=== PATIENT | female | born 1940 | race Hispanic/Latino ===

== ENCOUNTER 2019-09-04 14:01 | Emergency (ER) | payer OTHER ==
[2019-09-04] MEDS ORDERED: FENTANYL CITR 100 MCG/2 ML ONE (14:41)
[2019-09-04] MEDS ORDERED: NA CHLORIDE 0.9% 500 ML ONE (14:41)
[2019-09-04 15:13] LABS: Protime INR 1.1
[2019-09-04 15:14] LABS: Absolute Lymphocytes (CBC) 0.8 K/uL (0.7-4.9); Basophils % 1.1 % (0-1.3); Hematocrit 31.9 % (36.0-45.0); Lymphocytes % 13.8 % (15.3-44.8); MPV 8.4 fL (7.6-11.3)
--- NOTE | 2019-09-04 15:33 | RAD REPORT ---
EXAM DESCRIPTION: RAD - Chest Single View - 09/04/2019 3:27 pm CLINICAL HISTORY: COUGH Chest pain. COMPARISON: Chest Pa And Lat (2 Views) dated 12/19/2016; CHEST PA AND LAT 2 VIEW dated 06/28/2013; CHEST SINGLE VIEW dated 12/31/2010; CHEST SINGLE VIEW dated 09/07/2010 FINDINGS: Portable technique limits examination quality. The lungs are grossly clear. The heart is upper limit of normal in size. Right-sided venous catheter has tip in the SVC.No displaced fracture is evident. IMPRESSION: No acute intrathoracic process suspected.
--- NOTE | 2019-09-04 15:34 | RAD REPORT ---
EXAM DESCRIPTION: RAD - Pelvis - 09/04/2019 3:27 pm CLINICAL HISTORY: PAIN COMPARISON: None FINDINGS: AP pelvis, left hip and left femur - multiple projections are submitted Mildly impacted subcapital fracture is present involving the proximal left femur. No dislocation.
--- NOTE | 2019-09-04 15:48 | EDPHYS ---
Physician Documentation [facility] Name: Aury Garcia Age: 79 yrs Sex: Female : 1940 Arrival Date: 09/04/2019 Time: 14:06 Bed 7 Private MD: ED Physician Rahat Alexander HPI: 09/03 15:39 This 79 yrs old Female presents to ER via EMS with complaints of fall after tonie dialysis, left hippain. 15:39 The patient or guardian reports decreased range of motion, pain. that occurred tonie dialysis. The complaints affect the left hip. Onset: The symptoms/episode began/occurred just prior to arrival. Modifying factors: The symptoms are alleviated by nothing, the symptoms are aggravated by nothing. Associated signs and symptoms: Loss of consciousness: the patient experienced no loss of consciousness. Severity of symptoms: At their worst the symptoms were moderate, in the emergency department the symptoms are unchanged. The patient has not experienced similar symptoms in the past. Historical: - Allergies: 14:22 Codeine; jl7 14:22 Tramadol HCl; jl7 - Home Meds: 14:22 aspirin 81 mg Oral TbEC 1 tab once daily [Active]; levothyroxine 50 mcg tab 1 tab once jl7 daily [Active]; atorvastatin 20 mg oral tab 1 tab once daily [Active]; Insulin Glargine Sub-Q [Active]; Lispro [Active]; benzonatate 100 mg oral cap [Active]; carvedilol 12.5 mg oral tab 1 tab every 12 hours [Active]; pantoprazole 40 mg oral TbEC [Active]; hydralazine 25 mg Oral tab [Active]; pentoxifylline 400 mg oral TbER [Active]; - PMHx: 14:22 CVA; Diabetes - IDDM; Hypertension; Hypothyroidism; Hyperlipidemia; TIA; Chronic Kidney jl7 Disease; Dialysis; - PSHx: 14:22 Hysterectomy; jl7 - Immunization history:: Adult Immunizations up to date. - Social history:: Smoking status: Patient denies any tobacco usage or history of. - Family history:: not pertinent. ROS: 15:39 Constitutional: Negative for fever, chills, and weight loss, Eyes: Negative for injury, tonie pain, redness, and discharge, ENT: Negative for injury, pain, and discharge, Neck: Negative for injury, pain, and swelling, Cardiovascular: Negative for chest pain, palpitations, and edema, Respiratory: Negative for shortness of breath, cough, wheezing, and pleuritic chest pain, Abdomen/GI: Negative for abdominal pain, nausea, vomiting, diarrhea, and constipation, Back: Negative for injury and pain, : Negative for injury, bleeding, discharge, and swelling, Skin: Negative for injury, rash, and discoloration, Neuro: Negative for headache, weakness, numbness, tingling, and seizure, Psych: Negative for depression, anxiety, suicide ideation, homicidal ideation, and hallucinations, Allergy/Immunology: Negative for hives, rash, and allergies, Endocrine: Negative for neck swelling, polydipsia, polyuria, polyphagia, and marked weight changes, Hematologic/Lymphatic: Negative for swollen nodes, abnormal bleeding, and unusual bruising. 15:39 MS/extremity: Positive for injury or acute deformity, pain, of the left femoral area and left hip. Exam: 15:39 Constitutional: This is a well developed, well nourished patient who is awake, alert, tonie and in no acute distress. Head/Face: Normocephalic, atraumatic. Eyes: Pupils equal round and reactive to light, extra-ocular motions intact. Lids and lashes normal. Conjunctiva and sclera are non-icteric and not injected. Cornea within normal limits. Periorbital areas with no swelling, redness, or edema. ENT: Nares patent. No nasal discharge, no septal abnormalities noted. Tympanic membranes are normal and external auditory canals are clear. Oropharynx with no redness, swelling, or masses, exudates, or evidence of obstruction, uvula midline. Mucous membranes moist. Neck: Trachea midline, no thyromegaly or masses palpated, and no cervical lymphadenopathy. Supple, full range of motion without nuchal rigidity, or vertebral point tenderness. No Meningismus. Chest/axilla: Normal chest wall appearance and motion. Nontender with no deformity. No lesions are appreciated. Cardiovascular: Regular rate and rhythm with a normal S1 and S2. No gallops, murmurs, or rubs. Normal PMI, no JVD. No pulse deficits. Respiratory: Lungs have equal breath sounds bilaterally, clear to auscultation and percussion. No rales, rhonchi or wheezes noted. No increased work of breathing, no retractions or nasal flaring. Abdomen/GI: Soft, non-tender, with normal bowel sounds. No distension or tympany. No guarding or rebound. No evidence of tenderness throughout. Back: No spinal tenderness. No costovertebral tenderness. Full range of motion. Female : Normal external genitalia. Skin: Warm, dry with normal turgor. Normal color with no rashes, no lesions, and no evidence of cellulitis. Neuro: Awake and alert, GCS 15, oriented to person, place, time, and situation. Cranial nerves II-XII grossly intact. Motor strength 5/5 in all extremities. Sensory grossly intact. Cerebellar exam normal. Normal gait. Psych: Awake, alert, with orientation to person, place and time. Behavior, mood, and affect are within normal limits. 15:39 Musculoskeletal/extremity: Extremities: decreased ROM, pain, ROM: limited active range of motion, limited passive range of motion, limited active range of motion due to pain, limited passive range of motion due to pain, Circulation is intact in all extremities. Sensation intact. Compartment Syndrome exam of affected extremity: is normal. DVT Exam: negative Homans' sign noted on exam, no appreciated bluish discoloration, no erythema, no increased warmth, pain, swelling, tenderness. Vital Signs: 14:07 BP 199 / 69; Pulse 69; Resp 14 S; Pulse Ox 100% on R/A; Pain 0/10; jl7 14:57 BP 215 / 62; Pulse 70; Resp 16 S; Pulse Ox 100% on R/A; jl7 16:15 BP 211 / 72; Pulse 70; Resp 17; Temp 98.2(O); Pulse Ox 100% ; jl7 17:43 BP 208 / 72; Pulse 74; Resp 16; Pulse Ox 98% ; jl7 MDM: 14:12 Patient medically screened. [facility] 15:47 Data reviewed: vital signs, nurses notes, lab test result(s), EKG, radiologic studies, [facility] plain films. 09/03 14:29 Order name: Basic Metabolic Panel; Complete Time: 16:24 [facility] 09/03 14:29 Order name: CBC with Diff; Complete Time: 15:59 [facility] 09/03 14:29 Order name: LFT's; Complete Time: 16:24 [facility] 09/03 14:29 Order name: Magnesium; Complete Time: 16:24 09/03 14:29 Order name: NT PRO-BNP; Complete Time: 16:24 09/03 14:29 Order name: PT-INR; Complete Time: 15:59 [facility] 09/03 14:29 Order name: Troponin (emerg Dept Use Only); Complete Time: 16:24 09/03 14:29 Order name: XRAY Chest (1 view); Complete Time: 15:59 09/03 14:31 Order name: Pelvis XRAY; Complete Time: 15:59 [facility] 09/03 14:35 Order name: Hip Left 2 View XRAY 09/03 14:35 Order name: Femur Left XRAY 09/03 14:29 Order name: EKG; Complete Time: 14:30 [facility] 09/03 14:29 Order name: Cardiac monitoring; Complete Time: 14:33 09/03 14:29 Order name: EKG - Nurse/Tech; Complete Time: 14:59 09/03 14:29 Order name: IV Saline Lock; Complete Time: 14:59 09/03 14:29 Order name: Labs collected and sent; Complete Time: 14:59 [facility] 09/03 14:29 Order name: O2 Per Protocol; Complete Time: 14:33 09/03 14:29 Order name: O2 Sat Monitoring; Complete Time: 14:33 [facility] 09/03 16:30 Order name: Diet Ada 1800 Bijan; Complete Time: 16:31 jl7 Administered Medications: 14:58 Drug: fentaNYL (PF) 25 mcg Route: IVP; Site: right antecubital; jl7 15:15 Follow up: Response: No adverse reaction; Pain is decreased jl7 16:00 Drug: NS 0.9% 1000 ml Route: IV; Rate: 75 ml/hr; Site: right antecubital; jl7 17:59 Follow up: Response: No adverse reaction; IV Status: Infusion continued upon transfer jl7 16:01 Drug: fentaNYL (PF) 25 mcg Route: IVP; Site: right antecubital; jl7 16:20 Follow up: Response: No adverse reaction; Pain is decreased jl7 16:35 Drug: Coreg 12.5 mg Route: PO; jl7 17:46 Follow up: Response: No adverse reaction jl7 16:46 Drug: HydrALAZINE 25 mg Route: PO; jl7 17:46 Follow up: Response: No adverse reaction jl7 17:46 Not Given (Patient Refused): Zofran (Ondansetron) 4 mg IVP once; over 2 minutes jl7 Disposition: 09/04/19 17:11 Transfer ordered to [facility]. Diagnosis are Fall due to bumping against object, End stage renal disease - ON HD, Type 1 diabetes mellitus, Essential (primary) hypertension, Nondisplaced fracture of base of neck of left femur. - Reason for transfer: Higher level of care. - Accepting physician is [facility]. - Condition is Stable. - Problem is new. - Symptoms have improved. Signatures: Dispatcher [employer] EDMS Rahat Alexander MD MD cha Leal, Jahala RN RN jl7 Corrections: (The following items were deleted from the chart) 14:42 14:31 Hip Right 2 View+RAD.RAD.BRZ ordered. EDDC EDMS 14:42 14:31 Femur Right+RAD.RAD.BRZ ordered. EDDC EDMS 17:06 15:47 Hospitalization Ordered by Jose D Clark DO for Inpatient Admission. Preliminary tonie diagnosis is Fall due to bumping against object; Nondisplaced fracture of base of neck of left femur; End stage renal disease - on HD; Type 1 diabetes mellitus; Essential (primary) hypertension. Bed requested for Telemetry/MedSurg (Inpatient). Status is Inpatient Admission. Condition is Fair. Problem is new. Symptoms have improved. tonie 18:59 17:11 09/04/2019 17:11 Transfer ordered to [facility]. Diagnosis is Fall due to jl7 bumping against object; End stage renal disease - ON HD; Type 1 diabetes mellitus; Essential (primary) hypertension; Nondisplaced fracture of base of neck of left femur. Reason for transfer: Higher level of care. Accepting physician is [facility]. Condition is Stable. Problem is new. Symptoms have improved. tonie
--- NOTE | 2019-09-04 15:48 | ER ---
Nurse's Notes [facility] Name: Aury Garcia Age: 79 yrs Sex: Female : 1940 Arrival Date: 09/04/2019 Time: 14:06 Bed 7 Private MD: Diagnosis: Fall due to bumping against object;End stage renal disease-ON HD;Type 1 diabetes mellitus;Essential (primary) hypertension;Nondisplaced fracture of base of neck of left femur Presentation: 09/03 14:07 Chief complaint: EMS states: She completed dialysis, was waiting for transportation and jl7 fell, c/o left hip pain, denies LOC, able to bare weight, pt is baseline mentation, A\T\O 4, ambulates with a walker. Pt reports pain only with palpation, reports normal BP is 200 systolic. Coronavirus screen: The patient has NOT traveled to a country currently being monitored by the [facility] within the last 14 days. Proceed with normal triage procedures. The patient has NOT had contact with any known and/or suspected case of coronavirus. Proceed with normal triage procedures. Ebola Screen: No symptoms or risks identified at this time. Initial Sepsis Screen: Does the patient meet any 2 criteria? No. Patient's initial sepsis screen is negative. Does the patient have a suspected source of infection? No. Patient's initial sepsis screen is negative. Risk Assessment: Do you want to hurt yourself or someone else? Patient reports no desire to harm self or others. Onset of symptoms was September 04, 2019. Care prior to arrival: BGL 92. 14:07 Method Of Arrival: EMS: [facility] jl 14:07 Acuity: JOSE 3 Historical: - Allergies: 14:22 Codeine; jl 14:22 Tramadol HCl; jl - Home Meds: 14:22 aspirin 81 mg Oral TbEC 1 tab once daily [Active]; levothyroxine 50 mcg tab 1 tab once jl7 daily [Active]; atorvastatin 20 mg oral tab 1 tab once daily [Active]; Insulin Glargine Sub-Q [Active]; Lispro [Active]; benzonatate 100 mg oral cap [Active]; carvedilol 12.5 mg oral tab 1 tab every 12 hours [Active]; pantoprazole 40 mg oral TbEC [Active]; hydralazine 25 mg Oral tab [Active]; pentoxifylline 400 mg oral TbER [Active]; - PMHx: 14:22 CVA; Diabetes - IDDM; Hypertension; Hypothyroidism; Hyperlipidemia; TIA; Chronic Kidney jl7 Disease; Dialysis; - PSHx: 14:22 Hysterectomy; jl7 - Immunization history:: Adult Immunizations up to date. - Social history:: Smoking status: Patient denies any tobacco usage or history of. - Family history:: not pertinent. Screenin:15 Abuse screen: Denies threats or abuse. Denies injuries from another. Nutritional jl7 screening: No deficits noted. Tuberculosis screening: No symptoms or risk factors identified. 14:57 Fall Risk IV access (20 points). Total Calvillo Fall Scale indicates No Risk (0-24 pts). jl7 Assessment: 14:15 General: Appears in no apparent distress. uncomfortable, Behavior is calm, cooperative, jl7 appropriate for age. Pain: Complains of pain in left hip Pain does not radiate. Pain currently is 0 out of 10 on a pain scale. at worst was 7 out of 10 on a pain scale. Neuro: Level of Consciousness is awake, alert, obeys commands, Oriented to person, place, time, situation. Cardiovascular: Patient's skin is warm and dry. Respiratory: Airway is patent Respiratory effort is even, unlabored, Respiratory pattern is regular, symmetrical. Derm: Skin is pink, warm \T\ dry. Musculoskeletal: Reports pain in left hip. 16:00 Reassessment: Patient appears in no apparent distress at this time. No changes from jl7 previously documented assessment. Patient and/or family updated on plan of care and expected duration. Pain level reassessed. Patient is alert, oriented x 3, equal unlabored respirations, skin warm/dry/pink. 17:00 Reassessment: Patient appears in no apparent distress at this time. Patient and/or jl7 family updated on plan of care and expected duration. Pain level reassessed. Patient is alert, oriented x 3, equal unlabored respirations, skin warm/dry/pink. 17:58 Reassessment: Patient appears in no apparent distress at this time. Patient and/or jl7 family updated on plan of care and expected duration. Pain level reassessed. Patient is alert, oriented x 3, equal unlabored respirations, skin warm/dry/pink. Vital Signs: 14:07 BP 199 / 69; Pulse 69; Resp 14 S; Pulse Ox 100% on R/A; Pain 0/10; jl7 14:57 BP 215 / 62; Pulse 70; Resp 16 S; Pulse Ox 100% on R/A; jl7 16:15 BP 211 / 72; Pulse 70; Resp 17; Temp 98.2(O); Pulse Ox 100% ; jl7 17:43 BP 208 / 72; Pulse 74; Resp 16; Pulse Ox 98% ; jl7 ED Course: 14:06 Patient arrived in ED. jl7 14:12 Rahat Alexander MD is Attending Physician. tonie 14:14 Triage completed. jl7 14:15 Patient has correct armband on for positive identification. Bed in low position. Call jl7 light in reach. Side rails up X2. ophthalmic technologist on. Pulse ox on. NIBP on. Warm blanket given. 14:22 Arm band placed on right wrist. jl7 14:26 Artur Bryant, CRESCENCIO is Primary Nurse. jl7 14:40 Radiology exam delayed due to IV insertion attempt and/or patient not having ag6 appropriate IV at this time. 14:55 Initial lab(s) drawn, by co, sent to lab. Inserted saline lock: 22 gauge in right 7 antecubital area, using aseptic technique. Blood collected. 15:25 XRAY Chest (1 view) In Process Unspecified. EDMS 15:25 Pelvis XRAY In Process Unspecified. EDMS 15:25 Hip Left 2 View XRAY In Process Unspecified. EDMS 15:25 Femur Left XRAY In Process Unspecified. EDMS 15:44 Jose D Clark DO is Hospitalizing Provider. tonie 17:58 No provider procedures requiring assistance completed. Patient transferred, IV remains jl7 in place. intact, No redness/swelling at site. Administered Medications: 14:58 Drug: fentaNYL (PF) 25 mcg Route: IVP; Site: right antecubital; jl7 15:15 Follow up: Response: No adverse reaction; Pain is decreased jl7 16:00 Drug: NS 0.9% 1000 ml Route: IV; Rate: 75 ml/hr; Site: right antecubital; 7 17:59 Follow up: Response: No adverse reaction; IV Status: Infusion continued upon transfer jl7 16:01 Drug: fentaNYL (PF) 25 mcg Route: IVP; Site: right antecubital; jl7 16:20 Follow up: Response: No adverse reaction; Pain is decreased jl7 16:35 Drug: Coreg 12.5 mg Route: PO; jl7 17:46 Follow up: Response: No adverse reaction jl7 16:46 Drug: HydrALAZINE 25 mg Route: PO; jl7 17:46 Follow up: Response: No adverse reaction jl7 17:46 Not Given (Patient Refused): Zofran (Ondansetron) 4 mg IVP once; over 2 minutes jl7 Outcome: 15:47 Decision to Hospitalize by Provider. tonie 17:11 ER care complete, transfer ordered by . tonie 18:59 Patient left the ED. [facility] Signatures: Dispatcher [employer] EDMS Rahat Alexander MD MD cha Leal, Jahala RN RN jl7 Yazmin Jackson ag6 Corrections: (The following items were deleted from the chart) 14:34 14:07 Chief complaint: EMS states: She completed dialysis, was waiting for [facility] transportation and fell, c/o right hip pain, denies LOC, able to bare weight, pt is baseline mentation, A\T\O 4, ambulates with a walker. Pt reports pain only with palpation, reports normal BP is 200 systolic jl
[2019-09-04 16:01] LABS: Albumin 2.9 g/dL (3.4-5.0); Bilirubin Direct 0.1 mg/dL (0-0.2); Bilirubin Total 0.3 mg/dL (0.2-1.0); Potassium 3.2 mmol/L (3.5-5.1); Protein, Total 7.8 g/dL (6.4-8.2); Troponin (Emerg Dept Use Only) 0.25 ng/mL (0.0-0.045)
[2019-09-04] MEDS ORDERED: carvediloL 6.25 MG TAB ONE (16:37)
[2019-09-04] MEDS ORDERED: HYDRALAZINE HCL 20 MG/ML VIAL ONE (16:37)
[2019-09-04] MEDS ORDERED: HYDRALAZINE HCL 10 MG TABLET ONE (16:42)
--- NOTE | 2019-09-04 18:13 | RAD REPORT ---
EXAM DESCRIPTION: RAD - Hip Left 2 View - 09/04/2019 3:27 pm CLINICAL HISTORY: PAIN COMPARISON: None FINDINGS: AP pelvis, left hip and left femur - multiple projections are submitted Mildly impacted subcapital fracture is present involving the proximal left femur. No dislocation.
--- NOTE | 2019-09-04 18:14 | RAD REPORT ---
EXAM DESCRIPTION: RAD - Femur Left - 09/04/2019 3:26 pm CLINICAL HISTORY: PAIN COMPARISON: None FINDINGS: AP pelvis, left hip and left femur - multiple projections are submitted Mildly impacted subcapital fracture is present involving the proximal left femur. No dislocation.
[2019-09-04 19:10] VITALS: TEMP 98.2
[2019-09-04 19:35] VITALS: BP 208/72; O2SAT 98
--- NOTE | 2019-09-04 22:59 | EKG ---
Test Date: 2019-09-04 Test Time: 14:46:47 Global Supply Chain Director: ARMANDO MEASUREMENT RESULTS: Intervals: Rate: 70 AK: 128 QRSD: 96 QT: 426 QTc: 460 [place]: P: 61 AK: 128 QRS: 22 T: 205 INTERPRETIVE STATEMENTS: Normal sinus rhythm ST & T wave abnormality, consider inferior ischemia ST & T wave abnormality, consider anterolateral ischemia Abnormal ECG Compared to ECG 12/20/2016 06:27:15 Possible ischemia now present Prolonged QT interval no longer present ST (T wave) deviation still present Electronically Signed On 09-04-19 22:59:33 CDT by Vish Mcelroy
== END 2019-09-04 18:59 | disposition short-term general hospital (02) ==
LOC: ER 14:01
DX: S72.002A Fracture of unspecified part of neck of left femur, initial encounter for closed fracture (principal); W19.XXXA Unspecified fall, initial encounter; Y93.89 Activity, other specified; Y92.9 Unspecified place or not applicable; I10 Essential (primary) hypertension; E10.9 Type 1 diabetes mellitus without complications; Z88.6 Allergy status to analgesic agent; E03.9 Hypothyroidism, unspecified; E78.5 Hyperlipidemia, unspecified; N18.9 Chronic kidney disease, unspecified; Z99.2 Dependence on renal dialysis
CPT/HCPCS: 96361; 93005; 85025; 80048; 36415; 83735; 85610; 80076; 84484; 83880; 71045; 72170; 73502; 73552; 96374; 99284; J3010; J7040; J0360

== ENCOUNTER 2019-09-25 12:59 | Emergency (ER) | payer OTHER ==
[2019-09-25 13:45] LABS: Hematocrit 24.5 % (36.0-45.0); RBC Red Blood Cell Count 2.94 M/uL (3.86-4.86)
[2019-09-25 13:46] LABS: Absolute Lymphocytes (CBC) 1.1 K/uL (0.7-4.9); Basophils % 1.1 % (0-1.3); Lymphocytes % 17.6 % (15.3-44.8); MPV 8.1 fL (7.6-11.3)
[2019-09-25 13:52] LABS: Protime INR 0.94
[2019-09-25 14:11] LABS: Albumin 2.3 g/dL (3.4-5.0); Bilirubin Direct 0.2 mg/dL (0-0.2); Bilirubin Total 0.3 mg/dL (0.2-1.0); Potassium 3.2 mmol/L (3.5-5.1); Protein, Total 6.6 g/dL (6.4-8.2)
--- NOTE | 2019-09-25 14:23 | RAD REPORT ---
EXAM DESCRIPTION: CT - Abdomen Pelvis Wo Contrast - 09/25/2019 1:59 pm CLINICAL HISTORY: Abdominal pain hematochezia COMPARISON: 2016 TECHNIQUE: Computed axial tomography of the abdomen and pelvis was obtained. IV and oral contrast we re not requested. All CT scans are performed using dose optimization technique as appropriate and may include automated exposure control or mA/KV adjustment according to patient size. FINDINGS: The evaluation of solid organs, vessels and bowel is limited secondary to the lack of con trast administration. The liver, pancreas, adrenals and kidneys appear grossly normal. Splenic granuloma The appendix is normal. There is no evidence of diverticulitis. The rectum is distended with stool me asuring 5.6 centimeters. A moderate amount of stool is present throughout the colon. The rectal wall is thickened A small umbilical hernia contains fat. A small hiatal hernia is present. IMPRESSION: Thickening of the rectal wall may indicate inflammation.
--- NOTE | 2019-09-25 14:51 | RAD REPORT ---
EXAM DESCRIPTION: Asim Single View09/25/2019 2:40 pm CLINICAL HISTORY: Abdominal pain COMPARISON: August 2019 FINDINGS: The lungs appear clear of acute infiltrate. The heart is normal size. Central venous line remains in place IMPRESSION: No acute abnormalities displayed
--- NOTE | 2019-09-25 15:48 | EDPHYS ---
Physician Documentation [facility] Name: Aury Garcia Age: 79 yrs Sex: Female : 1940 Arrival Date: 09/25/2019 Time: 13:00 Bed 17 Private MD: ED Physician Rahat Alexander HPI: 09/24 13:45 This 79 yrs old Female presents to ER via EMS with complaints of Rectal pm1 Bleeding. 13:45 The patient presents to the emergency department with rectal bleeding, bright red blood pm1 with bowel movement. Onset: The symptoms/episode began/occurred 6 day(s) ago. Abdominal pain: none is appreciated. Associated signs and symptoms: Pertinent positives: generalized weakness, Pertinent negatives: fever, vomiting. Severity of symptoms: in the emergency department the symptoms are worse Hgb 6.0 from labs drawn this AM, Previously 7-8. Patient currently at intermediate for left hip fracture rehabilitation. Hip fracture on 09/04/2019. Lived at home with family prior to hip fracture. Patient with baseline dementia, alert to name only. Hemodialysis patient, T-Th-Sat. Patient missed her dialysis treatment today due to current ER visit. Historical: - Allergies: 18:22 Codeine; ll1 18:22 Tramadol HCl; ll1 - PMHx: 18:22 chronic kidney disease; TIA; Hypertension; Hypothyroidism; Hyperlipidemia; Diabetes - ll1 IDDM; Dialysis; CVA; - PSHx: 18:22 Hysterectomy; ll1 - Immunization history:: Adult Immunizations up to date. - Social history:: Patient/guardian denies using alcohol, street drugs, tobacco products, Smoking status: Patient denies any tobacco usage or history of. ROS: 13:42 Cardiovascular: Negative for chest pain, palpitations, and edema, Respiratory: Negative pm1 for shortness of breath, cough, wheezing, and pleuritic chest pain. 13:42 Back: Negative for injury and pain, MS/Extremity: Negative for injury and deformity, Skin: Negative for injury, rash, and discoloration. 13:42 Constitutional: Positive for generalized weakness, Negative for fever. 13:42 Abdomen/GI: Positive for rectal bleeding, Negative for abdominal pain, nausea and vomiting, black/tarry stool, rectal pain. 13:42 Neuro: Positive for weakness. Exam: 13:26 Head/Face: Normocephalic, atraumatic. Chest/axilla: Normal chest wall appearance and pm1 motion. Nontender with no deformity. No lesions are appreciated. Cardiovascular: Regular rate and rhythm with a normal S1 and S2. No gallops, murmurs, or rubs. No pulse deficits. Respiratory: Lungs have equal breath sounds bilaterally, clear to auscultation and percussion. No rales, rhonchi or wheezes noted. No increased work of breathing, no retractions or nasal flaring. Abdomen/GI: Soft, non-tender, with normal bowel sounds. No distension or tympany. No guarding or rebound. No evidence of tenderness throughout. Back: No spinal tenderness. No costovertebral tenderness. Full range of motion. 13:26 Constitutional: The patient appears awake, non-diaphoretic, non-toxic, well developed, well groomed, frail, Alert to Name Only 13:26 Skin: Appearance: normal except for affected area, ecchymosis, noted on the, left hip, that are mild, and are diffusely located, incisional scar to left hip with 7 joselin intact without any signs of dehiscence, discharge, or redness. Stage 1 pressure sore to coccyx. 13:26 Neuro: Orientation: to person, Mentation: able to follow commands, Motor: moves all fours. 15:30 Abdomen/GI: Rectal exam: rectal tone normal, Stool: guaiac positive, maroon, pm1 tenderness, is not appreciated, Jagruti PRATHER. Vital Signs: 13:02 BP 155 / 50; Pulse 66; Resp 17; Temp 97.9; Pulse Ox 100% on R/A; Pain 0/10; ll1 13:15 BP 158 / 55; Pulse 70; Resp 17; Pulse Ox 100% ; ll1 15:40 BP 178 / 50; Pulse 68; Resp 17; Pulse Ox 100% ; ll1 16:53 BP 117 / 81; Pulse 71; Resp 16; Pulse Ox 100% ; Pain 0/10; ll1 17:28 BP 163 / 56; Pulse 68; Resp 17; Pulse Ox 100% ; ll1 18:26 BP 173 / 58; Pulse 70; Resp 17; Temp 98.0; Pulse Ox 100% ; Pain 0/10; ll1 MDM: 13:09 Patient medically screened. [facility] 15:32 Data reviewed: vital signs. Data interpreted: Pulse oximetry: on room air is 100 %. pm1 Interpretation: normal. Counseling: I had a detailed discussion with the patient and/or guardian regarding: the historical points, exam findings, and any diagnostic results supporting the discharge/admit diagnosis, lab results, radiology results, the need to transfer to another facility, [facility] does not immediately have the required specialist, No GI. 15:55 Physician consultation: Art Berger MD was called at 15:55, regarding consult, pm1 patient's condition, after discussion of the case, a recommendation for transfer due to not available for consultation. 16:49 Physician consultation: MD CASEY Levine was contacted at 16:49, regarding consult, patient's pm1 condition, and will see patient would like admission per Dr. MD Madera. 16:58 Physician consultation: MD Madera regarding regarding transfer, patient's condition, and pm1 will see patient. 09/24 13:19 Order name: Type And Screen; Complete Time: 14:29 pm1 09/24 13:19 Order name: Basic Metabolic Panel; Complete Time: 14:29 pm1 09/24 13:19 Order name: CBC with Diff; Complete Time: 14:29 pm1 09/24 13:19 Order name: LFT's; Complete Time: 14:29 pm1 09/24 13:19 Order name: PT-INR; Complete Time: 14:29 pm1 09/24 15:31 Order name: Occult Blood--Ancillary bd 09/24 13:19 Order name: XRAY Chest (1 view); Complete Time: 14:57 pm1 09/24 13:19 Order name: EKG; Complete Time: 13:20 pm1 09/24 13:19 Order name: Cardiac monitoring; Complete Time: 18:26 pm1 09/24 13:19 Order name: EKG - Nurse/Tech; Complete Time: 18:26 pm1 09/24 13:53 Order name: Abdomen ; Complete Time: 14:29 EDMS 09/24 13:19 Order name: IV Saline Lock; Complete Time: 13:32 pm1 09/24 13:19 Order name: Labs collected and sent; Complete Time: 13:32 pm1 09/24 13:19 Order name: O2 Per Protocol; Complete Time: 13:32 pm1 09/24 13:19 Order name: O2 Sat Monitoring; Complete Time: 13:32 pm1 Administered Medications: 15:53 Drug: Flagyl 500 mg Volume: 100 ml; Route: IVPB; Rate: 200 ml/hr; Infused Over: 30 ll1 mins; Site: left antecubital; 16:52 Follow up: Response: No adverse reaction; RASS: Alert and Calm (0); IV Status: ll1 Completed infusion; IV Intake: 100ml 16:53 Drug: Ciprofloxacin 400 mg Volume: 200 ml; Route: IVPB; Infused Over: 60 mins; Site: ll1 left antecubital; 18:25 Follow up: Response: No adverse reaction; RASS: Alert and Calm (0); IV Status: ll1 Completed infusion; IV Intake: 200ml Disposition: 09/25/19 15:48 Transfer ordered to [facility]. Diagnosis are Gastrointestinal hemorrhage, unspecified, Anemia, unspecified. - Reason for transfer: Higher level of care. - Accepting physician is [facility]. - Condition is Stable. - Problem is new. - Symptoms have improved. Addendum: 09/27/2019 09:56 Co-signature as Attending Physician, Rahat Alexander MD I agree with the assessment and c nguyễn plan of care. Signatures: Dispatcher [employer] EDKS Rahat Alexander MD MD cha Marinas, Patrick, PAPER FEEDER PAPER FEEDER pm1 Benny Langston, RN RN ll1 Corrections: (The following items were deleted from the chart) 09/24 13:53 13:20 Abdomen Pelvis W Con+CT.RAD.BRZ ordered. [facility] 16:24 15:48 09/25/2019 15:48 Transfer ordered to [facility]. pm1 Diagnosis is Gastrointestinal hemorrhage, unspecified. Reason for transfer: Higher level of care. Accepting physician is [facility]. Condition is Stable. Problem is new. Symptoms have improved. pm1 18:23 13:05 Allergies: Codeine; ll1 ll1 18:23 13:05 Allergies: Tramadol HCl; ll1 ll1 18:23 13:05 PMHx: chronic kidney disease; ll1 ll1 18:23 13:05 PMHx: TIA; ll1 ll1 18:23 13:05 PMHx: Hypertension; ll1 ll1 18:23 13:06 PMHx: Hypothyroidism; ll1 ll1 18:23 13:06 PMHx: Hyperlipidemia; ll1 ll1 18:23 13:06 PMHx: Diabetes - IDDM; ll1 ll1 18:23 13:06 PMHx: Dialysis; ll1 ll1 18:23 13:06 PMHx: CVA; ll1 ll1 18:23 13:06 PSHx: Hysterectomy; ll1 ll1 18:24 16:24 09/25/2019 15:48 Transfer ordered to [facility]. ll1 Diagnosis is Gastrointestinal hemorrhage, unspecified; Anemia, unspecified. Reason for transfer: Higher level of care. Accepting physician is [facility]. Condition is Stable. Problem is new. Symptoms have improved. pm1
--- NOTE | 2019-09-25 15:48 | ER ---
Nurse's Notes [facility] Name: Aury Garcia Age: 79 yrs Sex: Female : 1940 Arrival Date: 09/25/2019 Time: 13:00 Bed 17 Private MD: Diagnosis: Gastrointestinal hemorrhage, unspecified;Anemia, unspecified Presentation: 09/24 13:02 Chief complaint: Patient states: Bright red rectal bleeding. HGB has dropped since this ll1 weekend. + weakness. Dialysis T/Th/S. No complaints of pain. No cough, no travel. Coronavirus screen: Proceed with normal triage. Patient denies a cough. Patient denies shortness of breath or difficulty breathing. Patient denies measured and/or subjective temperature greater than 100.4F prior to today's visit. Patient denies travel on a cruise ship or to a country the [facility] currently lists as an affected area. Patient denies contact with known and/or suspected case of COVID-19. Ebola Screen: Patient denies travel to an Ebola-affected area in the 21 days before illness onset. Initial Sepsis Screen: Does the patient meet any 2 criteria? No. Patient's initial sepsis screen is negative. Does the patient have a suspected source of infection? Yes: Other: rectal bleeding. Risk Assessment: Do you want to hurt yourself or someone else? Patient reports no desire to harm self or others. Onset of symptoms was September 19, 2019. 13:02 Method Of Arrival: EMS: [facility] 1 13:02 Acuity: JOSE 2 ll1 Triage Assessment: 13:07 General: Appears in no apparent distress. Behavior is calm, cooperative. Pain: Denies ll1 pain. Neuro: No deficits noted. Cardiovascular: No deficits noted. Respiratory: No deficits noted. GI: Abdomen is flat, Bowel sounds present X 4 quads. Abd is soft and non tender X 4 quads. Patient currently denies abdominal pain, Parent/caregiver reports the patient having bright red blood in stools. Historical: - Allergies: 18:22 Codeine; ll1 18:22 Tramadol HCl; ll1 - PMHx: 18:22 chronic kidney disease; TIA; Hypertension; Hypothyroidism; Hyperlipidemia; Diabetes - ll1 IDDM; Dialysis; CVA; - PSHx: 18:22 Hysterectomy; ll1 - Immunization history:: Adult Immunizations up to date. - Social history:: Patient/guardian denies using alcohol, street drugs, tobacco products, Smoking status: Patient denies any tobacco usage or history of. Screenin:07 Abuse screen: Denies threats or abuse. Nutritional screening: No deficits noted. ll1 Tuberculosis screening: No symptoms or risk factors identified. Fall Risk Secondary diagnosis (15 points) dementia, IV access (20 points). Ambulatory Aid- None/Bed Rest/Nurse Assist (0 pts). Gait- Impaired (20 pts.). Mental Status- Overestimates/Forgets Limitations (15 pts.). Total Calvillo Fall Scale indicates High Risk Score (45 or more points). Fall prevention measures have been instituted. Side Rails Up X 2 1:1 Attendant Assigned Frequent Obs/Assessments Occuring As available patient and family educated on Fall Prevention Program and Strategies. Assessment: 13:09 General: Appears in no apparent distress. Behavior is calm, cooperative, see triage ll1 assessment for further details.. 14:10 Reassessment: No changes from previously documented assessment. Patient and/or family ll1 updated on plan of care and expected duration. Pain level reassessed. Patient is alert, oriented x 3, equal unlabored respirations, skin warm/dry/pink. 15:10 Reassessment: No changes from previously documented assessment. Patient and/or family ll1 updated on plan of care and expected duration. Pain level reassessed. Patient is alert, oriented x 3, equal unlabored respirations, skin warm/dry/pink. 16:10 Reassessment: No changes from previously documented assessment. Patient and/or family ll1 updated on plan of care and expected duration. Pain level reassessed. Patient is alert, oriented x 3, equal unlabored respirations, skin warm/dry/pink. 17:10 Reassessment: No changes from previously documented assessment. Patient and/or family ll1 updated on plan of care and expected duration. Pain level reassessed. Patient is alert, oriented x 3, equal unlabored respirations, skin warm/dry/pink. 18:10 Reassessment: No changes from previously documented assessment. Patient and/or family ll1 updated on plan of care and expected duration. Pain level reassessed. Patient is alert, oriented x 3, equal unlabored respirations, skin warm/dry/pink. Vital Signs: 13:02 BP 155 / 50; Pulse 66; Resp 17; Temp 97.9; Pulse Ox 100% on R/A; Pain 0/10; ll1 13:15 BP 158 / 55; Pulse 70; Resp 17; Pulse Ox 100% ; ll1 15:40 BP 178 / 50; Pulse 68; Resp 17; Pulse Ox 100% ; ll1 16:53 BP 117 / 81; Pulse 71; Resp 16; Pulse Ox 100% ; Pain 0/10; ll1 17:28 BP 163 / 56; Pulse 68; Resp 17; Pulse Ox 100% ; ll1 18:26 BP 173 / 58; Pulse 70; Resp 17; Temp 98.0; Pulse Ox 100% ; Pain 0/10; ll1 ED Course: 13:00 Patient arrived in ED. ll1 13:04 Roman Craig NP is PHCP. pm1 13:04 Rahat Alexander MD is Attending Physician. pm1 13:04 Triage completed. ll1 13:07 Arm band placed on Patient placed in an exam room, on a stretcher. ll1 13:08 Patient has correct armband on for positive identification. Bed in low position. Call ll1 light in reach. Side rails up X2. Pulse ox on. NIBP on. 13:20 Inserted saline lock: 20 gauge in left antecubital area, using aseptic technique. Blood ll1 collected. 13:32 Benny Langston RN is Primary Nurse. ll1 13:59 Abdomen In Process Unspecified. EDMS 14:12 EKG done, by formulation technician. reviewed by Rahat Alexander MD. at1 14:13 Notified Nurse Practitioner and/or Physician Training Designer of a critical lab result(s), CRE ss 5.18. 14:41 XRAY Chest (1 view) In Process Unspecified. EDMS 14:56 Inserted 20 gauge, 10 cm powerglide inserted to L upper arm to aseptic technique. Pt ss tolerated well. Blood return noted. Flushes easily. 18:20 Contacted sister Leny Dupree [phone]. Informed of transfer to [address] 18:24 Patient transferred, IV remains in place. ll1 18:24 No provider procedures requiring assistance completed. ll1 Administered Medications: 15:53 Drug: Flagyl 500 mg Volume: 100 ml; Route: IVPB; Rate: 200 ml/hr; Infused Over: 30 ll1 mins; Site: left antecubital; 16:52 Follow up: Response: No adverse reaction; RASS: Alert and Calm (0); IV Status: ll1 Completed infusion; IV Intake: 100ml 16:53 Drug: Ciprofloxacin 400 mg Volume: 200 ml; Route: IVPB; Infused Over: 60 mins; Site: ll1 left antecubital; 18:25 Follow up: Response: No adverse reaction; RASS: Alert and Calm (0); IV Status: ll1 Completed infusion; IV Intake: 200ml Intake: 16:52 IV: 100ml; Total: 100ml. ll1 18:25 IV: 200ml; Total: 300ml. ll1 Outcome: 15:48 ER care complete, transfer ordered by MD. pm1 18:23 Transferred by ground EMS to [facility], Transfer form completed. ll1 X-rays sent w/ patient. 18:23 Condition: stable 18:23 Instructed on the need for transfer. 18:24 Patient left the ED. ll1 Signatures: Dispatcher [employer] EDSheree Del Rio RN RN ss Birdie Gardner, account services representative EKG Tat1 Roman Craig, [employer]OVEVA JEWEL [employer] FINISH OPENER pm1 Benny Langston RN RN ll1 Corrections: (The following items were deleted from the chart) 18:23 13:05 Allergies: Codeine; ll1 ll1 18:23 13:05 Allergies: Tramadol HCl; ll1 ll1 18:23 13:05 PMHx: chronic kidney disease; ll1 ll1 18:23 13:05 PMHx: TIA; ll1 ll1 18:23 13:05 PMHx: Hypertension; ll1 ll1 18:23 13:06 PMHx: Hypothyroidism; ll1 ll1 18:23 13:06 PMHx: Hyperlipidemia; ll1 ll1 18:23 13:06 PMHx: Diabetes - IDDM; ll1 ll1 18:23 13:06 PMHx: Dialysis; ll1 ll1 18:23 13:06 PMHx: CVA; ll1 ll1 18:23 13:06 PSHx: Hysterectomy; ll1 ll1
[2019-09-25] MEDS ORDERED: CIPROFLOXACIN 400mg IV 400 MG/200 ML BAG IV ONE (15:54)
[2019-09-25] MEDS ORDERED: METRONIDAZOLE 500mg IVPB 500 MG/100 ML BAG IV ONE (15:55)
[2019-09-25 18:30] VITALS: TEMP 97.9; O2SAT 100
[2019-09-25 18:35] VITALS: BP 163/56
--- NOTE | 2019-09-26 15:54 | EKG ---
Test Date: 2019-09-25 Test Time: 14:09:47 Tobacco Sorter: ARMANDO MEASUREMENT RESULTS: Intervals: Rate: 65 UT: 130 QRSD: 104 QT: 424 QTc: 440 [place]: P: 33 UT: 130 QRS: 38 T: 153 INTERPRETIVE STATEMENTS: Sinus rhythm with occasional premature ventricular complexes ST & T wave abnormality, consider inferolateral ischemia Abnormal ECG Compared to ECG 09/04/2019 14:46:47 Ventricular premature complex(es) now present ST (T wave) deviation still present Possible ischemia still present Electronically Signed On 09-26-19 15:50:38 CDT by Derek Spring
== END 2019-09-25 18:24 | disposition short-term general hospital (02) ==
LOC: ER 12:59
DX: E11.22 Type 2 diabetes mellitus with diabetic chronic kidney disease (principal); I12.0 Hypertensive chronic kidney disease with stage 5 chronic kidney disease or end stage renal disease; N18.6 End stage renal disease; D63.1 Anemia in chronic kidney disease; Z99.2 Dependence on renal dialysis; Z88.5 Allergy status to narcotic agent
CPT/HCPCS: 93005; 85025; 80048; 36415; 86900; 86850; 85610; 86901; 80076; 74176; 71045; J0744; 82272; 96365; 96366; 96367; 99285

== ENCOUNTER 2019-10-31 10:20 | Observation (INO) | payer OTHER ==
--- OUTSIDE RECORDS SUMMARY | 2019-10-31 11:20 | XMS REPORT | Clinical Summary ---
:1940 Author Organization [facility] Address [address] [place] [address] Care Team Providers Name Role Phone Srinivasan Forbes MD Primary Care Provider Allergies Active Allergy Reactions Severity Noted Date Comments Codeine 02/25/2017 hallucinations Tramadol 06/24/2016 Other reaction( s): Hallucinations Medications Medication Sig Dispensed Refills Start End Status Date Date miscellaneous medical Use to check 1 each 0 05/31/20 Active supply (BLOOD PRESSURE blood 18 CUFF) miscIndications: pressure Essential hypertension twice daily aspirin (ECOTRIN) 81 MG Take 81 mg by 0 Active enteric coated tablet mouth daily. latanoprost (XALATAN) Administer 1 0 Active 0.005 % ophthalmic drop to both solution eyes nightly. blood-glucose meter Use to check 1 each 0 08/27/19 Active miscIndications: Type 2 blood glucose 20 diabetes mellitus with twice daily hyperglycemia, with long-term current use of insulin ([facility]) blood-glucose meter Use as 1 each 0 08/27/19 Active kitIndications: Type 2 instructed 20 021 diabetes mellitus with hyperglycemia, with long-term current use of insulin ([facility]) lancets Use one 200 each 3 08/29/19 Active miscIndications: Type 2 lancet two 20 diabetes mellitus with times a day hyperglycemia, with for glucose long-term current use of insulin ([facility]) blood sugar diagnostic Use one test 200 strip 3 10/08/19 Active strips (glucose blood) strip two 20 strip test times daily stripsIndications: Type for blood 2 diabetes mellitus sugar with hyperglycemia, with long-term current use of insulin ([facility]) levothyroxine Take 1 tablet 90 tablet 3 10/16/19 Ac tive (SYNTHROID) 50 mcg (50 mcg 20 tabletIndications: total) by Hypothyroidism, mouth daily. unspecified type pentoxifylline TAKE 1 TABLET 180 tablet 3 10/16/19 Active (TRENTal) 400 mg CR BY MOUTH 20 tabletIndications: PAD TWICE A DAY (peripheral artery disease) ([facility]) insulin detemir Inject 25 0 Disc ontinued (LEVEMIR FLEXPEN SUBQ) Units under 020 the skin 2 (two) times a day. metFORMIN (GLUCOPHAGE) TAKE 1 TABLET 180 tablet 0 12/30/19 Discontinued 1,000 mg (1,000 MG 18 020 tabletIndications: TOTAL) BY [facility] us on 09/22/2017 MOUTH 2 (TWO) TIMES A DAY WITH MEALS. empagliflozin Take 1 tablet 30 tablet 2 01/16/20 Di scontinued (JARDIANCE) 25 mg (25 mg total) 18 020 (Stop Taking at tabletIndications: Type by mouth Discharge) 2 diabetes mellitus daily. with hyperglycemia, with long-term current use of insulin ([facility]) sitaGLIPtin (JANUVIA) Take 1 tablet 56 tablet 0 03/01/2002/18 100 MG (100 mg 18 019 tabletIndications: Type total) by 2 diabetes mellitus mouth daily. with hyperglycemia, with long-term current use of insulin ([facility]) pentoxifylline 1 tablet 2x a 180 tablet 3 04/26/20 Discontinued (TRENTal) 400 mg CR day for 90 18 020 tabletIndications: PAD days (peripheral artery disease) ([facility]) blood sugar diagnostic Check blood 200 strip 3 05/31/2012/28 Discontinued strips (ACCU-CHEK glucose twice 18 019 TIFFANIE) strip test daily. stripsIndications: Type 2 diabetes mellitus with hyperglycemia, with long-term current use of insulin ([facility]) LEVEMIR FLEXTOUCH U-100 INJECT SUB 35 15 pen 5 06/14/20 Discontinued INSULN 100 unit/mL (3 UNITS EVERY 18 019 (Reorder) mL) insulin pen 12 HOURS carvedilol (COREG) 6.25 TAKE 1 TABLET 180 tablet 1 09/09/19 1 Discontinued MG tabletIndications: (6.25 MG 019 (Reorder) Essential hypertension TOTAL) BY MOUTH 2 (TWO) TIMES A DAY. lisinopril Take 1 tablet 30 tablet 11 09/14/19 Disco ntinued (PRINIVIL,ZESTRIL) 40 (40 mg total) (Stop Taking at mg tabletIndications: by mouth Discharge) Essential hypertension daily. hydroCHLOROthiazide Take 1 tablet 30 tablet 11 09/14/19 Discontinued (HYDRODIURIL) 12.5 MG (12.5 mg (Stop Taking at tabletIndications: total) by D ischarge) Essential hypertension mouth daily. levothyroxine Take 1 tablet 30 tablet 2 09/15/19 Di scontinued (SYNTHROID, LEVOXYL) 50 (50 mcg 019 (Reorder) mcg tabletIndications: total) by Hypothyroidism, mouth daily. unspecified type glimepiride (AMARYL) 4 TAKE 1 TABLET 90 tablet 0 10/08/1907/22 Discontinued MG tabletIndications: BY MOUTH 019 (Reorder) Type 2 diabetes EVERY DAY mellitus with BEFORE hyperglycemia, with BREAKFAST long-term current use of insulin ([facility]) blood-glucose meter Use as 1 each 0 12/29/19 Discontinued kitIndications: Type 2 instructed (Reorder) diabetes mellitus with hyperglycemia, with long-term current use of insulin ([facility]) blood sugar diagnostic Use one test 200 strip 3 12/29/19/08/19 Discontinued strips (FREESTYLE LITE strip two (Stop Taking at STRIPS) strip test times a day Discharge) stripsIndications: Type for glucose 2 diabetes mellitus with hyperglycemia, with long-term current use of insulin ([facility]) lancets Use one 200 each 3 12/29/19 Discontinu ed miscIndications: Type 2 lancet two (Reorder) diabetes mellitus with times a day hyperglycemia, with for glucose long-term current use of insulin ([facility]) levothyroxine TAKE 1 TABLET 30 tablet 2 01/07/20 Di scontinued (SYNTHROID, LEVOXYL) 50 BY MOUTH 019 (Reorder) mcg tabletIndications: EVERY DAY Hypothyroidism, unspecified type LEVEMIR FLEXTOUCH U-100 INJECT SUB 35 45 pen 1 03/02/20 Discontinued INSULN 100 unit/mL (3 UNITS EVERY 020 (Stop Taking at mL) insulin pen 12 HOURS Disc harge) carvedilol (COREG) 6.25 TAKE 1 TABLET 180 tablet 1 03/23/20 0 Discontinued MG tabletIndications: BY MOUTH 020 (Stop Taking at Essential hypertension TWICE A DAY Discharge) levothyroxine TAKE 1 TABLET 90 tablet 0 04/05/20 Di scontinued (SYNTHROID) 50 mcg BY MOUTH 020 tabletIndications: EVERY DAY Hypothyroidism, unspecified type glimepiride (AMARYL) 4 TAKE 1 TABLET 90 tablet 0 04/22/2008/19 Discontinued MG tabletIndications: BY MOUTH 020 (Stop Taking at Type 2 diabetes EVERY DAY Disc harge) mellitus with BEFORE hyperglycemia, with BREAKFAST long-term current use of insulin ([facility]) levothyroxine TAKE 1 TABLET 90 tablet 1 07/01/19 Di scontinued (SYNTHROID) 50 mcg BY MOUTH 020 ( Reorder) tabletIndications: EVERY DAY Hypothyroidism, unspecified type hydrALAZINE Take 25 mg by 0 Disc ontinued (APRESOLINE) 25 MG mouth 2 (two) 020 (Stop Taking at tablet times a day. Dischar ge) carvediloL (COREG) 12.5 Take 1 tablet 60 tablet 2 08/21/19 MG tablet (12.5 mg 20 020 total) by mouth 2 (two) times a day for 30 days. hydrALAZINE Take 1 tablet 90 tablet 1 08/21/19 Expi red (APRESOLINE) 25 MG (25 mg total) 20 020 tablet by mouth every 8 (eight) hours for 30 days. insulin GLARGINE Inject 5 3 mL 2 08/21/19 Exp ired (LANTUS) 100 unit/mL Units under 20 020 injection (vial) the skin 2 (two) times a day for 30 days. atorvastatin (LIPITOR) Take 1 tablet 30 tablet 2 08/21/1907/22 20 MG tablet (20 mg total) 20 020 by mouth nightly for 30 days. Default OP ins pantoprazole (PROTONIX) Take 1 tablet 30 tablet 3 08/21/19 /07/22 40 MG EC tablet (40 mg total) 20 020 by mouth daily for 30 days. benzonatate (TESSALON Take 1 40 capsule 0 08/27/19 Discontinued PERLES) 100 MG capsule (100 20 020 (S top Taking at capsuleIndications: mg total) by Discharge) Cough mouth 3 (three) times a day as needed for cough for up to 10 days. brompheniramine-pseudoe Take 5 mL by 150 mL 0 08/27/1914/08 Discontinued ph-DM 2-30-10 mg/5 mL mouth 3 020 (Stop Taking at syrupIndications: Cough (three) times Discharge) a day as needed for cough for up to 10 days. levoFLOXacin (LEVAQUIN) Take 2 tab PO 6 tablet 0 08/28/19 Discontinued 250 MG daily for one 20 020 (Stop Taking at tabletIndications: day and then Discharge) Acute cystitis without 1 tab PO hematuria every 48 hours for 10 days total duration blood sugar diagnostic Use one test 200 strip 3 08/29/1908/19 Discontinued strips (glucose blood) strip two (Stop Taking at strip test times daily Dischar ge) stripsIndications: Type for glucose 2 diabetes mellitus with hyperglycemia, with long-term current use of insulin ([facility]) acetaminophen (TYLENOL) Take 2 60 tablet 0 09/12/19 325 MG tablet tablets (650 20 020 mg total) by mouth every 4 (four) hours as needed for mild pain, moderate pain or fever for up to 30 days. amLODIPine (NORVASC) 5 Take 1 tablet 30 tablet 0 09/13/1914/08 mg tablet (5 mg total) 20 020 by mouth daily for 30 days. epoetin misa-epbx Inject 1 mL 12 mL 0 09/14/19 (RETACRIT) 3,000 (3,000 Units 20 020 unit/mL solution total) under injection the skin 3 (three) times a week for 30 days. heparin sodium,porcine Inject 1 mL 60 mL 0 09/12/1910/11 (HEParin, porcine,) (5,000 Units 20 020 5,000 unit/mL injection total) under the skin every 12 (twelve) hours for 30 days. insulin lispro Inject 0-5 10 mL 12 09/12/19 Expi red (HumaLOG) 100 unit/mL Units under 20 020 injection the skin 3 (three) times a day with meals for 30 days. pentoxifylline TAKE 1 TABLET 180 tablet 3 10/08/19 Discontinued (TRENTal) 400 mg CR BY MOUTH 20 020 (Reorder) tabletIndications: PAD TWICE A DAY (peripheral artery disease) ([facility]) Active Problems Problem Noted Date Closed left hip fracture 09/04/2019 Closed fracture of left hip 09/04/2019 Overview: Added automatically from request for augustus carrol [id number] Gastrointestinal bleed 08/12/2019 Acute pulmonary edema 08/07/2019 Hematoma of groin 03/07/2018 PAD (peripheral artery disease) 02/08/2018 Overview: Added automatically from request for surgery [id number] Last Assessment & Plan: Doing well after tibial angioplasty with control of claudication symptoms. She complains of leg swelling for which I recommend light compression stockings. To follow-up in 6 months with noninvasive testing. PVD (peripheral vascular disease) 09/19/2017 Type 2 diabetes mellitus with hyperglycemia, with long -term current use of 03/10/2017 insulin Essential hypertension 03/10/2017 Mixed hyperlipidemia 03/10/2017 Encounters Date Type Specialty Care Team Description 10/24/2019 Telemedicine Internal Medicine Srinivasan Forbes PVD (skip Blum MD vascular diseas e) ([facility]) (Primary Dx) 10/24/2019 Travel 10/16/2019 Orders Only Internal Medicine Srinivasan Forbes Hypothy roidism, unspecified type; MD Viktoria PAD (peripheral artery disease) ([facility]) 10/08/2019 Orders Only Internal Medicine Petty De Oliveira, Type 2 diabetes MA mellitus with hyperglycemia, with long-term curre nt use of insulin ([facility]) (Primary Dx) 10/08/2019 Refill Cardiovascular ForbesSrinivasan ayala PAD (robyn Blum MD artery disease) ([facility]) 10/02/2019 Hospital Encounter Radiology Nino Panda Arrive d MD 10/02/2019 Abstract Orthopedic Surgery Audelia Archer MA 09/27/2019 Telephone Cardiovascular Suzanna Bella RN 09/21/2019 Travel 09/20/2019 Travel 09/07/2019 Anesthesia Event Orthopedic Surgery Jm Magana MD Koshy, Nikhil 09/07/2019 Surgery Orthopedic Surgery Amarilys NinoBLUE Arreola MD ARTHROPLASTY, L EFT HIP 09/04/2019 Hospital Encounter Orthopedic Surgery Dorota Murillo Closed fracture of left hip, initial encounter ([facility]) (Primary Dx); - Rashaun Zimmer MD Type 2 diabetes mellitus with hyperglycemia, with long-term current use of insulin ([facility]); 09/12/2019 Mixed hyperlipi demia; PVD (peripheral vascular disease) ([facility]); PAD (peripheral artery disease) ([facility]); Essential hyper tension 09/04/2019 Travel 09/04/2019 Intake Access 08/30/2019 Telephone Internal Medicine Petty De Oliveira MA 08/29/2019 Orders Only Internal Medicine Petty De Oliveira Type 2 diabetes MA mellitus with hyperglycemia, with long-term curre nt use of insulin ([facility]) 08/28/2019 Telephone Internal Medicine Petty De Oliveira MA 08/28/2019 Orders Only Internal Medicine Srinivasan Forbes ESRD (e nd stage MD Viktoria renal disease) ([facility]) (Primary Dx) 08/28/2019 Orders Only Internal Medicine Srinivasan Forbes Acute c ystitis MD Viktoria without hematur ia (Primary Dx) 08/27/2019 Hospital Encounter Radiology Srinivasan Forbes MD 08/27/2019 Office Visit Internal Medicine Srinivasna Forbes Type 2 diabetes mellitus with hyperglycemia, with long-term current use of insulin ([facility]) (Primary Dx); MD Viktoria Essential hyper tension; Cough; Acute cystitis without hematuria; Debility 08/27/2019 Travel 08/21/2019 Telephone Internal Medicine Petty De Oliveira MA 08/07/2019 Hospital Encounter Cardiology Gabino Feliz Acute re nal failure on dialysis ([facility]) (Primary Dx); Cristina Powell MD Acute pulmonary edema ([facility]); 08/21/2019 Dorota Murillo Acute blood loss anemia; O. MD Mesha Type 2 diabetes mellitus with hyperglycemia, with long-term current use of insulin ([facility]); Essential hyper tension; Mixed hyperlipi demia; PAD (peripheral artery disease) ([facility]); PVD (peripheral vascular disease) ([facility]) 07/01/2019 Refill Internal Medicine Srinivasan Forbes J., MD unspecified typ e 04/21/2019 Refill Internal Medicine Srinivasan Forbes 2 rocío Blum MD mellitus with hyperglycemia, with long-term curre nt use of insulin ([facility]) 04/11/2019 Office Visit Cardiovascular [place], PAD (peripher al [place] artery disease) MD Maicol ([facility]) (Primary Dx) 04/05/2019 Refill Internal Medicine Srinivasan Forbes J., MD unspecified typ e 03/23/2019 Refill Internal Medicine Srinivasan Forbes MD hypertension 03/02/2019 Refill Internal Medicine Srinivasan Forbes MD 02/09/2019 Telephone Internal Medicine Petty De Oliveira, MA 01/06/2019 Refill Internal Medicine Srinivasan Forbes J., MD unspecified typ e 12/28/2018 Orders Only Internal Medicine Petty De Oliveira, Type 2 diabetes MA mellitus with hyperglycemia, with long-term curre nt use of insulin ([facility]) (Primary Dx) after 10/30/2018 Immunizations Name Administration Dates Next Due FLUZONE HIGH-DOSE PF 03/01/2018, 03/10/2017 Pneumococcal Conjugate 13-Valent 05/31/2018 Family History Medical History Relation Name Comments Heart disease Father Stroke Mother Relation Name Status Comments Father Mother Social History Tobacco Use Types Packs/Day Years Used Date Former Smoker Quit: 1999 Smokeless Tobacco: Never Used Comments: socially Alcohol Use Drinks/Week oz/Week Comments No Sex Assigned at Date Recorded Not on file Job Start Date Occupation Industry Not on file Not on file Not on file Travel History Travel Start Travel End No recent travel history available. COVID-19 Exposure Response Date Recorded In the last month, have you been in contact Unable to assess 10/24/2019 12:59 PM CDT with someone who was confirmed or suspected to have Coronavirus / COVID-19? Last Filed Vital Signs Vital Sign Reading Time Taken Comments Blood Pressure 171/72 09/12/2019 11:44 AM CDT Pulse 76 09/12/2019 11:44 AM CDT Temperature 36.4 C (97.6 F) 09/12/2019 11:44 AM CDT Respiratory Rate 14 09/12/2019 11:44 AM CDT Oxygen Saturation 98% 09/12/2019 11:44 AM CDT Inhaled Oxygen Concentration - - Weight 46.7 kg (103 lb) 08/27/2019 2:44 PM CDT Height 147.3 cm (4' 10") 08/27/2019 2:44 PM CDT Body Mass Index 21.53 08/27/2019 2:44 PM CDT Plan of Treatment Health Maintenance Due Date Last Done Comments SHINGLES VACCINES (#1) 01/12/1992 65+ PNEUMOCOCCAL VACCINE (2 of 2 - 05/31/2019 05/31/2018 PPSV23) DIABETIC FOOT EXAM 09/14/2019 09/13/2018, 09/13/2018, 08/29/2017 URINE MICROALBUMIN 09/14/2019 09/13/2018, 09/02/2017, 03/01/2017 DIABETIC RETINAL EYE EXAM 01/19/2020 01/18/2018 INFLUENZA VACCINE 01/19/2020 03/01/2018, 03/01/2018, 03/10/2017 Implants Implanted Type Area Crna Device Shelf Model / Identifier Expiration Serial / Date Lot Device Vasclr Clsr Baln Cath 10ml Lkng Syr 5fr [place] nxgrip - [id number] Cardiovascular N/A: N/A ACCESS CLOSURE 11/18/2019 [id number] / Implanted: 12/27/2017 at [facility] (Quantity not on file) [employer] / [id number] Device Vasclr Clsr Baln Cath 10ml Lkng Syr 5fr [place] nxgrip - [id number] Cardiovascular N/A: N/A ACCESS CLOSURE 12/18/2019 [id number] / Implanted: 03/07/2018 at [facility] (Quantity not on file) [employer] / [id number] Device Vasclr Clsr Baln Cath 10ml Lkng Syr 5fr [place] nxgrip - [id number] Cardiovascular N/A: N/A ACCESS CLOSURE 02/18/2020 [id number] / Implanted: Qty: 1 on 03/21/2018 by Nemesio Mistry MD at [facility] [employer] / [id number] Screw Bone Canltd Thred Lg Hxgnl Socket Ss [id number] - [id number] Orthopedic Trauma Left: SYNTHES TRAUMA 208 [id number] / Implanted: 09/07/2019 at [facility] (Quantity not on file) Imp lants Hip AND RECON / Screw Bone Canltd Thred Lg Hxgnl Socket Ss [id number] - [id number] Orthopedic Trauma Left: SYNTHES TRAUMA 208 875 / Implanted: 09/07/2019 at [facility] (Quantity not on file) Imp lants Hip AND RECON / Screw Bone Canltd Thred Lg Hxgnl Socket Ss [id number] - [id number] Orthopedic Trauma Left: SYNTHES TRAUMA 209 870 / Implanted: 09/07/2019 at [facility] (Quantity not on file) Imp lants Hip AND RECON / Screw Bone Canltd Thred Lg Hxgnl Socket Ss [id number] - [id number] Orthopedic Trauma Left: SYNTHES TRAUMA 209 875 / Implanted: 09/07/2019 at [facility] (Quantity not on file) Imp lants Hip AND RECON / Washer For Lg Scr 13mm - [id number] Orthopedic Trauma Left: SYNTHE S TRAUMA 219 99 / Implanted: 09/07/2019 at [facility] (Quantity not on file) Imp lants Hip AND RECON / Catheter Angio Roller Helper Ii 5fr 65cm Selc Braidd Torque [place] - [id number] Surgical N/A: N/A [facility] PERIPHERAL [id number] / Implanted: 12/27/2017 at [facility] (Quantity not on file) Imp lants; INTERVENTION / Expanders; VASCULAR AUGUSTUS Extenders; Surgical Wires Catheter Angio Roller Helper Ii 5fr 0.038in 65cm Hf Contra-L - [id number] Surgical N/A: N/A [facility] [id number] / Implanted: 12/27/2017 at [facility] (Quantity not on file) Imp lants; INTERVENTION / Expanders; VASCULAR AUGUSTUS Extenders; Surgical Wires Catheter Card [place] 14 4fr 150cm Guid Supp - [id number] Surgic al N/A: N/A [facility] [id number] / Implanted: 12/27/2017 at [facility] (Quantity not on file) Imp lants; INTERVENTION / Expanders; VASCULAR AUGUSTUS Extenders; Surgical Wires Catheter Furnace Liner Otw 4fr 150cm 3x80mm Lpr Rodney Sl Right: TASHA [id number] / Implanted: Qty: 1 on 12/27/2017 by Nemesio Mistry MD at [facility] SCIENTIFIC/GODWIN / PHERAL VASCULAR (MEDI-TECH) Catheter Furnace Liner Otw 3.8fr 135cm 80x5mm Rodney Right: KATIA N [id number] / Implanted: Qty: 1 on 12/27/2017 by Nemesio Mistry MD at [facility] SCIENTIFIC/GODWIN / PHERAL VASCULAR ([facility]) Catheter Furnace Liner Rodney Otw 135cm 4x60mm [place] [id number] / Implanted: Qty: 1 on 03/07/2018 by Nemesio Mistry MD at [facility] SCIENTIFIC/GODWIN / PHERAL VASCULAR ([facility]) Catheter Furnace Liner Otw 4fr 150cm 3x80mm Lpr Rodney Sl [place] [id number] / Implanted: Qty: 1 on 03/07/2018 by Nemesio Mistry MD at [facility] SCIENTIFIC/GODWIN / PHERAL VASCULAR ([facility]) Catheter Furnace Liner Otw 4fr 150cm 3x80mm Lpr Rodney Sl [place] [id number] / Implanted: Qty: 1 on 03/21/2018 by Nemesio Mistry MD at [facility] SCIENTIFIC/GODWIN / PHERAL VASCULAR ([facility]) Catheter Furnace Liner Rodney Otw 3.8fr 135cm 80x4mm [place] N [id number] / Implanted: Qty: 1 on 03/21/2018 by Nemesio Mistry MD at [facility] SCIENTIFIC/GODWIN / PHERAL VASCULAR [facility] Explanted Type Area Crna Device Shelf Model / Identifier Expiration Serial / Date Lot Screw Bone Canltd Thred Lg Hxgnl Socket Ss [id number] - Log [id number] Orthopedic Left: SYNTHES TRAUMA [id number] 870 / Implanted: 09/07/2019 (Quantity not on file) Trauma Hip AND R ECON / Explanted: 09/07/2019 at [facility] (Quantity not on file) Implants Screw Bone Canltd Thred Lg Hxgnl Socket Ss [id number] - Log [id number] Orthopedic Left: SYNTHES TRAUMA 209 870 / Implanted: 09/07/2019 (Quantity not on file) Trauma Hip AND R ECON / Explanted: 09/07/2019 at [facility] (Quantity not on file) Implants Washer For Lg Scr 13mm - [id number] Orthopedic Left: SYNTHES TRAUM A 219 99 / Implanted: 09/07/2019 (Quantity not on file) Trauma Hip AND R ECON / Explanted: 09/07/2019 at [facility] (Quantity not on file) Implants Procedures Procedure Name Priority Date/Time Associated Comments Diagnosis XR LOWER EXTREMITY Routine 09/21/2019 2:37 Resul ts for this EXTERNAL STUDY PM CDT procedure are in the results section. POC GLUCOSE Routine 09/12/2019 12:02 Results for this PM CDT procedure are i n the results section. POC GLUCOSE Routine 09/12/2019 8:20 Results for this AM CDT procedure are i n the results section. POC GLUCOSE Routine 09/11/2019 9:36 Results for this PM CDT procedure are i n the results section. POC GLUCOSE Routine 09/11/2019 12:38 Results for this PM CDT procedure are i n the results section. HEPATITIS B SURFACE Routine 09/11/2019 10:57 Resu lts for this ANTIGEN AM CDT procedure are i n the results section. POC GLUCOSE Routine 09/11/2019 8:36 Results for this AM CDT procedure are i n the results section. HC COMPLETE BLD COUNT Routine 09/11/2019 8:15 Re sults for this W/AUTO DIFF AM CDT procedure are i n the results section. ESTIMATED GFR Routine 09/11/2019 12:00 Results fo r this AM CDT procedure are i n the results section. BASIC METABOLIC PANEL Routine 09/11/2019 12:00 Re sults for this AM CDT procedure are i n the results section. POC GLUCOSE Routine 09/10/2019 10:15 Results for this PM CDT procedure are i n the results section. HEMODIALYSIS Routine 09/10/2019 6:29 PM CDT POC GLUCOSE Routine 09/10/2019 5:25 Results for this PM CDT procedure are i n the results section. POC GLUCOSE Routine 09/10/2019 1:03 Results for this PM CDT procedure are i n the results section. POC GLUCOSE Routine 09/09/2019 9:28 Results for this PM CDT procedure are i n the results section. POC GLUCOSE Routine 09/09/2019 6:33 Results for this PM CDT procedure are i n the results section. POC GLUCOSE Routine 09/09/2019 12:16 Results for this PM CDT procedure are i n the results section. POC GLUCOSE Routine 09/09/2019 7:00 Results for this AM CDT procedure are i n the results section. POC GLUCOSE Routine 09/08/2019 9:18 Results for this PM CDT procedure are i n the results section. POC GLUCOSE Routine 09/08/2019 5:54 Results for this PM CDT procedure are i n the results section. POC GLUCOSE Routine 09/08/2019 12:30 Results for this PM CDT procedure are i n the results section. POC GLUCOSE Routine 09/08/2019 9:06 Results for this AM CDT procedure are i n the results section. CBC HEMOGRAM Routine 09/08/2019 7:30 Results for this AM CDT procedure are i n the results section. ESTIMATED GFR Routine 09/08/2019 4:00 Results fo r this AM CDT procedure are i n the results section. MAGNESIUM LEVEL Routine 09/08/2019 4:00 Results for this AM CDT procedure are i n the results section. PHOSPHORUS LEVEL Routine 09/08/2019 4:00 Results for this AM CDT procedure are i n the results section. BASIC METABOLIC PANEL Routine 09/08/2019 4:00 Re sults for this AM CDT procedure are i n the results section. POC GLUCOSE Routine 09/07/2019 10:15 Results for this PM CDT procedure are i n the results section. POC GLUCOSE Routine 09/07/2019 4:59 Results for this PM CDT procedure are i n the results section. HEMODIALYSIS Routine 09/07/2019 4:20 PM CDT POC GLUCOSE Routine 09/07/2019 9:36 Results for this AM CDT procedure are i n the results section. OR FL > 1 HOUR Routine 09/07/2019 9:16 Results f or this AM CDT procedure are i n the results section. CT AN ELECTIVE Routine 09/07/2019 8:41 Results f or this ENDOTRACHEAL AIRWAY AM CDT procedur e are in the results section. PINNING, HIP, 09/07/2019 7:57 Closed fracture of PERCUTANEOUS AM CDT left hip, initial encounter (HCC) Special Needs C-ARM POC PANEL 4 Routine 09/07/2019 6:48 AM Results for this CDT procedure are i n the results section. POC GLUCOSE Routine 09/07/2019 5:21 AM Results for this CDT procedure are i n the results section. ESTIMATED GFR Routine 09/07/2019 4:30 AM Results for this CDT procedure are i n the results section. PROTHROMBIN TIME WITH Routine 09/07/2019 4:30 AM Results for this INR CDT procedure are i n the results section. PARTIAL THROMBOPLASTIN Routine 09/07/2019 4:30 AM Results for this TIME (PTT) CDT procedure are i n the results section. TOTAL IRON BINDING Routine 09/07/2019 4:30 AM Re sults for this CAPACITY CDT procedure are i n the results section. FERRITIN LEVEL Routine 09/07/2019 4:30 AM Result s for this CDT procedure are i n the results section. BASIC METABOLIC PANEL Routine 09/07/2019 4:30 AM Results for this CDT procedure are i n the results section. HC COMPLETE BLD COUNT Routine 09/07/2019 4:30 AM Results for this W/AUTO DIFF CDT procedure are i n the results section. POC GLUCOSE Routine 09/06/2019 9:48 PM Results for this CDT procedure are i n the results section. POC GLUCOSE Routine 09/06/2019 5:11 PM Results for this CDT procedure are i n the results section. POC GLUCOSE Routine 09/06/2019 12:32 PM Results for this CDT procedure are i n the results section. POC GLUCOSE Routine 09/06/2019 10:46 AM Results for this CDT procedure are i n the results section. HEMODIALYSIS Routine 09/06/2019 6:22 AM CDT PROTHROMBIN TIME WITH Routine 09/06/2019 6:00 AM Results for this INR CDT procedure are i n the results section. PARTIAL THROMBOPLASTIN Routine 09/06/2019 6:00 AM Results for this TIME (PTT) CDT procedure are i n the results section. HC COMPLETE BLD COUNT Routine 09/06/2019 6:00 AM Results for this W/AUTO DIFF CDT procedure are i n the results section. ESTIMATED GFR Routine 09/06/2019 4:00 AM Results for this CDT procedure are i n the results section. ALBUMIN LEVEL Routine 09/06/2019 4:00 AM Results for this CDT procedure are i n the results section. PHOSPHORUS LEVEL Routine 09/06/2019 4:00 AM Resu lts for this CDT procedure are i n the results section. MAGNESIUM LEVEL Routine 09/06/2019 4:00 AM Resul ts for this CDT procedure are i n the results section. BASIC METABOLIC PANEL Routine 09/06/2019 4:00 AM Results for this CDT procedure are i n the results section. POC GLUCOSE Routine 09/05/2019 11:55 PM Results for this CDT procedure are i n the results section. ECG 12-LEAD Routine 09/05/2019 6:15 PM Results for this CDT procedure are i n the results section. POC GLUCOSE Routine 09/05/2019 5:20 PM Results for this CDT procedure are i n the results section. XR HIP 2-3 VIEWS LEFT Routine 09/05/2019 2:13 PM Results for this CDT procedure are i n the results section. XR FEMUR 2 VW LEFT STAT 09/05/2019 2:13 PM Re sults for this CDT procedure are i n the results section. XR PELVIS 1 OR 2 VW STAT 09/05/2019 2:12 PM R esults for this CDT procedure are i n the results section. POC GLUCOSE Routine 09/05/2019 12:30 PM Results for this CDT procedure are i n the results section. POC GLUCOSE Routine 09/05/2019 7:23 AM Results for this CDT procedure are i n the results section. TYPE AND SCREEN Routine 09/05/2019 6:10 AM Resul ts for this CDT procedure are i n the results section. PARTIAL THROMBOPLASTIN Routine 09/05/2019 6:10 AM Results for this TIME (PTT) CDT procedure are i n the results section. PROTHROMBIN TIME WITH Routine 09/05/2019 6:10 AM Results for this INR CDT procedure are i n the results section. HC COMPLETE BLD COUNT Routine 09/05/2019 6:10 AM Results for this W/AUTO DIFF CDT procedure are i n the results section. ESTIMATED GFR Routine 09/05/2019 4:00 AM Results for this CDT procedure are i n the results section. BASIC METABOLIC PANEL Routine 09/05/2019 4:00 AM Results for this CDT procedure are i n the results section. POC GLUCOSE Routine 09/04/2019 9:57 PM Results for this CDT procedure are i n the results section. XR CHEST 2 VW Routine 08/27/2019 4:54 PM Cough Results for this CDT procedure are i n the results section. URINALYSIS, COMPLETE, Routine 08/27/2019 4:10 PM Acute cystit is Results for this WITH REFLEX TO CULTURE CDT without hematuria procedure are in the results section. URINE CULTURE Routine 08/27/2019 4:10 PM Results for this CDT procedure are i n the results section. POC GLUCOSE Routine 08/21/2019 12:25 PM Results for this [facility] procedure are i n the results section. POC GLUCOSE Routine 08/21/2019 8:21 AM Results for this [facility] procedure are i n the results section. MANUAL DIFFERENTIAL Routine 08/21/2019 2:00 AM R esults for this [facility] procedure are i n the results section. PHOSPHORUS LEVEL Routine 08/21/2019 2:00 AM Resu lts for this [facility] procedure are i n the results section. ESTIMATED GFR Routine 08/21/2019 2:00 AM Results for this [facility] procedure are i n the results section. MAGNESIUM LEVEL Routine 08/21/2019 2:00 AM Resul ts for this [facility] procedure are i n the results section. CBC WITH PLATELET AND Routine 08/21/2019 2:00 AM Results for this DIFFERENTIAL [facility] procedure are i n the results section. BASIC METABOLIC PANEL Routine 08/21/2019 2:00 AM Results for this [facility] procedure are i n the results section. HEMODIALYSIS Routine 08/20/2019 10:22 PM [facility] POC GLUCOSE Routine 08/20/2019 9:18 PM Results for this [facility] procedure are i n the results section. POC GLUCOSE Routine 08/20/2019 6:23 PM Results for this [facility] procedure are i n the results section. POC GLUCOSE Routine 08/20/2019 5:13 PM Results for this [facility] procedure are i n the results section. POC GLUCOSE Routine 08/20/2019 11:08 AM Results for this [facility] procedure are i n the results section. POC GLUCOSE Routine 08/20/2019 7:58 AM Results for this [facility] procedure are i n the results section. MANUAL DIFFERENTIAL Routine 08/20/2019 5:05 AM R esults for this [facility] procedure are i n the results section. ESTIMATED GFR Routine 08/20/2019 5:05 AM Results for this [facility] procedure are i n the results section. MAGNESIUM LEVEL Routine 08/20/2019 5:05 AM Resul ts for this [facility] procedure are i n the results section. CBC WITH PLATELET AND Routine 08/20/2019 5:05 AM Results for this DIFFERENTIAL [facility] procedure are i n the results section. BASIC METABOLIC PANEL Routine 08/20/2019 5:05 AM Results for this [facility] procedure are i n the results section. POC GLUCOSE Routine 08/19/2019 9:15 PM Results for this [facility] procedure are i n the results section. POC GLUCOSE Routine 08/19/2019 5:14 PM Results for this [facility] procedure are i n the results section. POC GLUCOSE Routine 08/19/2019 11:55 AM Results for this [facility] procedure are i n the results section. ECG 12-LEAD Routine 08/19/2019 9:26 AM Results for this [facility] procedure are i n the results section. POC GLUCOSE Routine 08/19/2019 8:53 AM Results for this [facility] procedure are i n the results section. BASIC METABOLIC PANEL Routine 08/19/2019 4:00 AM Results for this [facility] procedure are i n the results section. ESTIMATED GFR Routine 08/19/2019 4:00 AM Results for this [facility] procedure are i n the results section. POC GLUCOSE Routine 08/18/2019 5:56 PM Results for this [facility] procedure are i n the results section. POC GLUCOSE Routine 08/18/2019 1:01 PM Results for this [facility] procedure are i n the results section. HEMODIALYSIS Routine 08/18/2019 8:45 AM [facility] POC GLUCOSE Routine 08/18/2019 7:36 AM Results for this [facility] procedure are i n the results section. POC GLUCOSE Routine 08/17/2019 9:00 PM Results for this [facility] procedure are i n the results section. POC GLUCOSE Routine 08/17/2019 6:13 PM Results for this [facility] procedure are i n the results section. POC GLUCOSE Routine 08/17/2019 12:44 PM Results for this [facility] procedure are i n the results section. NM MYOCARDIAL PERFUSION Routine 08/17/2019 8:37 AM Results for this STRESS REST 1 DAY [facility] procedure are in the results section. CV STRESS TEST NUCLEAR Routine 08/17/2019 8:37 AM Results for this CARDIO [facility] procedure are i n the results section. POC GLUCOSE Routine 08/17/2019 7:53 AM Results for this [facility] procedure are i n the results section. ESTIMATED GFR Routine 08/17/2019 3:40 AM Results for this [facility] procedure are i n the results section. PHOSPHORUS LEVEL Routine 08/17/2019 3:40 AM Resu lts for this [facility] procedure are i n the results section. BASIC METABOLIC PANEL Routine 08/17/2019 3:40 AM Results for this [facility] procedure are i n the results section. POC GLUCOSE Routine 08/16/2019 9:56 PM Results for this [facility] procedure are i n the results section. POC GLUCOSE Routine 08/16/2019 4:07 PM Results for this [facility] procedure are i n the results section. POC GLUCOSE Routine 08/16/2019 11:38 AM Results for this [facility] procedure are i n the results section. CT HEAD WO CONTRAST Routine 08/16/2019 11:21 AM R esults for this [facility] procedure are i n the results section. ESTIMATED GFR Routine 08/16/2019 10:29 AM Results for this [facility] procedure are i n the results section. BASIC METABOLIC PANEL Routine 08/16/2019 10:29 AM Results for this [facility] procedure are i n the results section. POC GLUCOSE Routine 08/16/2019 7:41 AM Results for this [facility] procedure are i n the results section. POC GLUCOSE Routine 08/15/2019 6:03 PM Results for this [facility] procedure are i n the results section. POC GLUCOSE Routine 08/15/2019 12:07 PM Results for this [facility] procedure are i n the results section. HEMODIALYSIS Routine 08/15/2019 12:04 PM [facility] POC GLUCOSE Routine 08/15/2019 8:29 AM Results for this [facility] procedure are i n the results section. ESTIMATED GFR Routine 08/15/2019 8:15 AM Results for this [facility] procedure are i n the results section. PHOSPHORUS LEVEL Routine 08/15/2019 8:15 AM Resu lts for this [facility] procedure are i n the results section. MAGNESIUM LEVEL Routine 08/15/2019 8:15 AM Resul ts for this [facility] procedure are i n the results section. BASIC METABOLIC PANEL Routine 08/15/2019 8:15 AM Results for this [facility] procedure are i n the results section. HC COMPLETE BLD COUNT Routine 08/15/2019 8:15 AM Results for this W/AUTO DIFF [facility] procedure are i n the results section. POC GLUCOSE Routine 08/14/2019 9:45 PM Results for this [facility] procedure are i n the results section. POC GLUCOSE Routine 08/14/2019 4:20 PM Results for this [facility] procedure are i n the results section. POC GLUCOSE Routine 08/14/2019 11:11 AM Results for this [facility] procedure are i n the results section. HEPATITIS B CORE Routine 08/14/2019 10:05 AM Resu lts for this ANTIBODY TOTAL [facility] procedure are in the results section. HEPATITIS B SURFACE Routine 08/14/2019 10:05 AM R esults for this ANTIBODY [facility] procedure are i n the results section. HEPATITIS B SURFACE Routine 08/14/2019 10:05 AM R esults for this ANTIGEN [facility] procedure are i n the results section. HEPATITIS C ANTIBODY Routine 08/14/2019 10:05 AM Results for this [facility] procedure are i n the results section. HEMODIALYSIS Routine 08/14/2019 9:00 AM [facility] POC GLUCOSE Routine 08/14/2019 7:36 AM Results for this [facility] procedure are i n the results section. HC COMPLETE BLD COUNT Routine 08/14/2019 5:30 AM Results for this W/AUTO DIFF [facility] procedure are i n the results section. ESTIMATED GFR Routine 08/14/2019 4:00 AM Results for this [facility] procedure are i n the results section. BASIC METABOLIC PANEL Routine 08/14/2019 4:00 AM Results for this [facility] procedure are i n the results section. POC GLUCOSE Routine 08/13/2019 8:06 PM Results for this [facility] procedure are i n the results section. IR TUNNELED DIALYSIS Routine 08/13/2019 6:37 PM Results for this CATHETER PLACEMENT [facility] procedure are in the results section. HEPATITIS B SURFACE STAT 08/13/2019 5:28 PM R esults for this ANTIGEN [facility] procedure are i n the results section. POC GLUCOSE Routine 08/13/2019 5:15 PM Results for this [facility] procedure are i n the results section. POC GLUCOSE Routine 08/13/2019 11:54 AM Results for this [facility] procedure are i n the results section. HEMODIALYSIS Routine 08/13/2019 11:03 AM [facility] POC GLUCOSE Routine 08/13/2019 7:28 AM Results for this [facility] procedure are i n the results section. HC COMPLETE BLD COUNT Routine 08/13/2019 4:50 AM Results for this W/AUTO DIFF [facility] procedure are i n the results section. ESTIMATED GFR Routine 08/13/2019 4:00 AM Results for this [facility] procedure are i n the results section. BASIC METABOLIC PANEL Routine 08/13/2019 4:00 AM Results for this [facility] procedure are i n the results section. IONIZED CALCIUM Routine 08/13/2019 4:00 AM Resul ts for this [facility] procedure are i n the results section. POC GLUCOSE Routine 08/12/2019 8:33 PM Results for this [facility] procedure are i n the results section. POTASSIUM LEVEL Routine 08/12/2019 7:00 PM Resul ts for this [facility] procedure are i n the results section. POC GLUCOSE Routine 08/12/2019 6:25 PM Results for this [facility] procedure are i n the results section. POC GLUCOSE Routine 08/12/2019 4:18 PM Results for this [facility] procedure are i n the results section. POC GLUCOSE Routine 08/12/2019 11:43 AM Results for this [facility] procedure are i n the results section. XR CHEST 1 VW PORTABLE Routine 08/12/2019 9:16 AM Results for this [facility] procedure are i n the results section. POC GLUCOSE Routine 08/12/2019 6:59 AM Results for this [facility] procedure are i n the results section. MANUAL DIFFERENTIAL Routine 08/12/2019 5:00 AM R esults for this [facility] procedure are i n the results section. ESTIMATED GFR Routine 08/12/2019 5:00 AM Results for this [facility] procedure are i n the results section. B NATRIURETIC PEPTIDE Routine 08/12/2019 5:00 AM Results for this [facility] procedure are i n the results section. IONIZED CALCIUM Routine 08/12/2019 5:00 AM Resul ts for this [facility] procedure are i n the results section. PHOSPHORUS LEVEL Routine 08/12/2019 5:00 AM Resu lts for this [facility] procedure are i n the results section. MAGNESIUM LEVEL Routine 08/12/2019 5:00 AM Resul ts for this [facility] procedure are i n the results section. BASIC METABOLIC PANEL Routine 08/12/2019 5:00 AM Results for this [facility] procedure are i n the results section. CBC WITH PLATELET AND Routine 08/12/2019 5:00 AM Results for this DIFFERENTIAL [facility] procedure are i n the results section. POC GLUCOSE Routine 08/11/2019 8:34 PM Results for this [facility] procedure are i n the results section. POC GLUCOSE Routine 08/11/2019 6:06 PM Results for this [facility] procedure are i n the results section. HEMOGLOBIN & HEMATOCRIT Timed 08/11/2019 4:55 PM Results for this [facility] procedure are i n the results section. TRANSFUSE RED BLOOD STAT 08/11/2019 1:35 PM CELLS [facility] POC GLUCOSE Routine 08/11/2019 12:24 PM Results for this [facility] procedure are i n the results section. TRANSFUSE RED BLOOD STAT 08/11/2019 11:13 AM CELLS [facility] OCCULT BLOOD, STOOL Routine 08/11/2019 8:17 AM R esults for this [facility] procedure are i n the results section. POC GLUCOSE Routine 08/11/2019 8:02 AM Results for this [facility] procedure are i n the results section. HEMOGLOBIN & HEMATOCRIT STAT 08/11/2019 7:28 AM Results for this [facility] procedure are i n the results section. PREPARE RBC STAT 08/11/2019 6:24 AM Results for this [facility] procedure are i n the results section. TYPE AND SCREEN STAT 08/11/2019 6:24 AM Resul ts for this [facility] procedure are i n the results section. POC GLUCOSE Routine 08/11/2019 6:04 AM Results for this [facility] procedure are i n the results section. POC GLUCOSE Routine 08/11/2019 4:57 AM Results for this [facility] procedure are i n the results section. SMEAR REVIEW Routine 08/11/2019 4:35 AM Results for this [facility] procedure are i n the results section. HC COMPLETE BLD COUNT Routine 08/11/2019 4:35 AM Results for this W/AUTO DIFF [facility] procedure are i n the results section. ESTIMATED GFR Routine 08/11/2019 4:11 AM Results for this [facility] procedure are i n the results section. BASIC METABOLIC PANEL Routine 08/11/2019 4:11 AM Results for this [facility] procedure are i n the results section. POC GLUCOSE Routine 08/11/2019 12:25 AM Results for this [facility] procedure are i n the results section. POC GLUCOSE Routine 08/10/2019 8:52 PM Results for this [facility] procedure are i n the results section. POC GLUCOSE Routine 08/10/2019 4:59 PM Results for this [facility] procedure are i n the results section. POC GLUCOSE Routine 08/10/2019 12:19 PM Results for this [facility] procedure are i n the results section. POC GLUCOSE Routine 08/10/2019 11:00 AM Results for this [facility] procedure are i n the results section. POC GLUCOSE Routine 08/10/2019 8:31 AM Results for this [facility] procedure are i n the results section. POC GLUCOSE Routine 08/10/2019 7:21 AM Results for this [facility] procedure are i n the results section. ESTIMATED GFR Routine 08/10/2019 5:23 AM Results for this [facility] procedure are i n the results section. BASIC METABOLIC PANEL Routine 08/10/2019 5:23 AM Results for this [facility] procedure are i n the results section. HC COMPLETE BLD COUNT Routine 08/10/2019 5:23 AM Results for this W/AUTO DIFF [facility] procedure are i n the results section. POC GLUCOSE Routine 08/10/2019 4:01 AM Results for this [facility] procedure are i n the results section. POC GLUCOSE Routine 08/10/2019 12:27 AM Results for this [facility] procedure are i n the results section. POC GLUCOSE Routine 08/09/2019 9:24 PM Results for this [facility] procedure are i n the results section. US RENAL DOPPLER Routine 08/09/2019 9:00 PM Resu lts for this [facility] procedure are i n the results section. POC GLUCOSE Routine 08/09/2019 4:35 PM Results for this [facility] procedure are i n the results section. POC GLUCOSE Routine 08/09/2019 12:39 PM Results for this [facility] procedure are i n the results section. BODY FLUID CONSULT Routine 08/09/2019 11:49 AM Re sults for this [facility] procedure are i n the results section. URINALYSIS, AUTOMATED Routine 08/09/2019 11:49 AM Results for this WITH MICROSCOPY [facility] procedure ar e in the results section. TORITO TITER Routine 08/09/2019 11:45 AM Results for this [facility] procedure are i n the results section. GLOMERULAR BASEMENT Routine 08/09/2019 11:45 AM R esults for this MEMBRANE AB IGG (IFA) [facility] proced ure are in the results section. ANTI-NEUTROPHILIC Routine 08/09/2019 11:45 AM Res ults for this CYTOPLASMIC ABS PANEL [facility] proced ure are in the results section. TORITO Routine 08/09/2019 11:45 AM Results for this [facility] procedure are i n the results section. BARNETT ANTIBODY Routine 08/09/2019 11:45 AM Result s for this [facility] procedure are i n the results section. DNA AB SCREEN Routine 08/09/2019 11:45 AM Results for this [facility] procedure are i n the results section. C4 COMPLEMENT COMPONENT Routine 08/09/2019 11:45 AM Results for this [facility] procedure are i n the results section. C3 COMPLEMENT COMPONENT Routine 08/09/2019 11:45 AM Results for this [facility] procedure are i n the results section. XR CHEST 1 VW PORTABLE Routine 08/09/2019 9:58 AM Results for this [facility] procedure are i n the results section. POC GLUCOSE Routine 08/09/2019 8:09 AM Results for this [facility] procedure are i n the results section. B NATRIURETIC PEPTIDE Routine 08/09/2019 5:20 AM Results for this [facility] procedure are i n the results section. VENOUS BLOOD GAS Routine 08/09/2019 5:20 AM Resu lts for this [facility] procedure are i n the results section. D-DIMER Routine 08/09/2019 5:20 AM Results for this [facility] procedure are i n the results section. HC COMPLETE BLD COUNT Routine 08/09/2019 5:20 AM Results for this W/AUTO DIFF [facility] procedure are i n the results section. POC GLUCOSE Routine 08/09/2019 4:54 AM Results for this [facility] procedure are i n the results section. ESTIMATED GFR Routine 08/09/2019 4:00 AM Results for this [facility] procedure are i n the results section. CREATINE KINASE, TOTAL Routine 08/09/2019 4:00 AM Results for this (CPK) [facility] procedure are i n the results section. TOTAL IRON BINDING Routine 08/09/2019 4:00 AM Re sults for this CAPACITY [facility] procedure are i n the results section. FERRITIN LEVEL Routine 08/09/2019 4:00 AM Result s for this [facility] procedure are i n the results section. BASIC METABOLIC PANEL Routine 08/09/2019 4:00 AM Results for this [facility] procedure are i n the results section. POC GLUCOSE Routine 08/09/2019 2:22 AM Results for this [facility] procedure are i n the results section. SERUM ELECTROPHORESIS Routine 08/09/2019 12:17 AM Results for this [facility] procedure are i n the results section. KAPPA LAMBDA FREE LIGHT Routine 08/09/2019 12:17 AM Results for this CHAIN WITH RATIO [facility] procedure a re in the results section. LACTIC ACID LEVEL Timed 08/09/2019 12:17 AM Res ults for this [facility] procedure are i n the results section. US CAROTID DUPLEX Routine 08/08/2019 9:20 PM Res ults for this BILATERAL [facility] procedure are i n the results section. POC GLUCOSE Routine 08/08/2019 9:13 PM Results for this [facility] procedure are i n the results section. POC GLUCOSE Routine 08/08/2019 6:26 PM Results for this [facility] procedure are i n the results section. URINE CULTURE Routine 08/08/2019 4:57 PM Results for this [facility] procedure are i n the results section. US RENAL Routine 08/08/2019 3:35 PM Results for this [facility] procedure are i n the results section. PROTEIN, URINE, RANDOM Routine 08/08/2019 1:43 PM Results for this [facility] procedure are i n the results section. CREATININE LEVEL, URINE, Routine 08/08/2019 1:43 PM Results for this RANDOM [facility] procedure are i n the results section. SODIUM LEVEL, URINE, Routine 08/08/2019 1:43 PM Results for this RANDOM [facility] procedure are i n the results section. UREA NITROGEN, URINE, Routine 08/08/2019 1:43 PM Results for this RANDOM [facility] procedure are i n the results section. URINALYSIS SCREEN AND Routine 08/08/2019 1:43 PM Results for this MICROSCOPY, WITH REFLEX [facility] proc edure are in TO CULTURE the results section. POC GLUCOSE Routine 08/08/2019 12:32 PM Results for this [facility] procedure are i n the results section. POC GLUCOSE Routine 08/08/2019 7:33 AM Results for this [facility] procedure are i n the results section. POC GLUCOSE Routine 08/08/2019 5:58 AM Results for this [facility] procedure are i n the results section. POC GLUCOSE Routine 08/08/2019 4:18 AM Results for this [facility] procedure are i n the results section. TROPONIN Routine 08/08/2019 4:04 AM Results for this [facility] procedure are i n the results section. ESTIMATED GFR STAT 08/08/2019 2:24 AM Results for this [facility] procedure are i n the results section. COMPREHENSIVE METABOLIC STAT 08/08/2019 2:24 AM Results for this PANEL [facility] procedure are i n the results section. ESTIMATED GFR Routine 08/08/2019 1:40 AM Results for this [facility] procedure are i n the results section. LIPID PANEL Routine 08/08/2019 1:40 AM Results for this [facility] procedure are i n the results section. T4, FREE Routine 08/08/2019 1:40 AM Results for this [facility] procedure are i n the results section. THYROID STIMULATING Routine 08/08/2019 1:40 AM R esults for this HORMONE [facility] procedure are i n the results section. HEMOGLOBIN A1C Routine 08/08/2019 1:40 AM Result s for this [facility] procedure are i n the results section. BASIC METABOLIC PANEL Routine 08/08/2019 1:40 AM Results for this [facility] procedure are i n the results section. HC COMPLETE BLD COUNT Routine 08/08/2019 1:40 AM Results for this W/AUTO DIFF [facility] procedure are i n the results section. TROPONIN Routine 08/08/2019 12:09 AM Results for this [facility] procedure are i n the results section. XR CHEST 1 VW PORTABLE STAT 08/07/2019 9:08 PM Results for this [facility] procedure are i n the results section. ECG 12-LEAD Routine 08/07/2019 8:50 PM Results for this [facility] procedure are i n the results section. ESTIMATED GFR Routine 08/07/2019 8:45 PM Results for this [facility] procedure are i n the results section. HC COMPLETE BLD COUNT Routine 08/07/2019 8:45 PM Results for this W/AUTO DIFF [facility] procedure are i n the results section. COMPREHENSIVE METABOLIC Routine 08/07/2019 8:45 PM Results for this PANEL [facility] procedure are i n the results section. TROPONIN Routine 08/07/2019 8:45 PM Results for this [facility] procedure are i n the results section. B NATRIURETIC PEPTIDE Routine 08/07/2019 8:45 PM Results for this [facility] procedure are i n the results section. CT CRITICAL CARE, E/M Routine 08/07/2019 8:33 PM Results for this 30-74 MINUTES [facility] procedure are in the results section. ESTIMATED GFR STAT 08/07/2019 6:42 PM Results for this [facility] procedure are i n the results section. LIPASE LEVEL STAT 08/07/2019 6:42 PM Results for this [facility] procedure are i n the results section. AMYLASE LEVEL STAT 08/07/2019 6:42 PM Results for this [facility] procedure are i n the results section. COMPREHENSIVE METABOLIC STAT 08/07/2019 6:42 PM Results for this PANEL [facility] procedure are i n the results section. PARTIAL THROMBOPLASTIN STAT 08/07/2019 6:42 PM Results for this TIME (PTT) [facility] procedure are i n the results section. PROTHROMBIN TIME WITH STAT 08/07/2019 6:42 PM Results for this INR [facility] procedure are i n the results section. HC COMPLETE BLD COUNT STAT 08/07/2019 6:42 PM Results for this W/AUTO DIFF [facility] procedure are i n the results section. TTE COMPLETE, WO Routine 08/07/2019 12:45 AM Resu lts for this CONTRAST, W DOPPLER [facility] procedur e are in ([id number]) the results section. PV PHYSIOLOGIC ARTERIAL Routine 04/11/2019 10:30 AM PAD (perip heral Results for this LOWER EXTREMITY COMPLETE CDT artery disease) procedure are in (HCC) the results section. after 10/30/2018 Results XR Lower Extremity External Study (09/21/2019 2:37 PM CDT) Specimen Narrative Performed At This exam was not acquired at a Methodis t facility and has not been [facility] interpreted by a [facility] Provider. T he exam was imported into our imaging system. Performing Organization Address City/[facility]/Zipcode Phone Number [facility] [address] [place] [phone] POC glucose (09/12/2019 12:02 PM CDT)Only the most recent of94 resultswithin the time period is included. Pathologist Sig nature POC glucose 104 (H) 65 - 99 mg/dL [facility] Comment: HOSPITAL Senior Ui Designer Name: Júnior Frieda Device ID: [id number] Chartable: [facility] Notified RN Specimen Blood Performing Organization Address City/[facility]/Zipcode Phone Number [facility] DEPARTMENT OF PATHOLOGY AND [address] [place] [phone] [place] [phone] Hepatitis B surface antigen (09/11/2019 10:57 AM CDT)Only the most recent of3 resultswithin the time period is included. Pathologist [facility] Hepatitis B surface Non-reactive Non-reactive [facility] Specimen Blood Performing Organization Address City/[facility] Phone Number [facility] DEPARTMENT OF PATHOLOGY AND [address] [place] [address] [place] [phone] CBC with platelet and differential (09/11/2019 8:15 AM CDT)Only the most recent of16 resultswithin the time period is included. WBC 5.56 4.50 - 11.00 [facility] k/uL [facility] RBC 3.30 (L) 4.20 - 5.50 [facility] m/uL [facility] HGB 8.8 (L) 12.0 - 16.0 [facility] g/dL [facility] HCT 28.2 (L) 37.0 - 47.0 % [facility] MCV 85.5 82.0 - 100.0 [facility] MCH 26.7 (L) 27.0 - 34.0 pg [facility] MCHC 31.2 31.0 - 37.0 [facility] RDW - SD 46.1 37.0 - 55.0 fL [facility] MPV 9.7 8.8 - 13.2 fL [facility] Platelet count 340 150 - 400 k/uL [facility] Nucleated RBC 0.00 /100 WBC [facility] Neutrophils 62.7 39.0 - 69.0 % [facility] Lymphocytes 26.6 25.0 - 45.0 % [facility] Monocytes 6.8 0.0 - 10.0 % [facility] Eosinophils 2.5 0.0 - 5.0 % [facility] Basophils 0.9 0.0 - 1.0 % [facility] Immature granulocytes 0.5Comment: 0.0 - 1.0 % [facility] "Immature HOSPITAL granulocytes" (promyelocytes , myelocytes, metamyelocytes ) Specimen Blood Performing Organization Address City/[facility]/Zipcode Phone Number [facility] DEPARTMENT OF PATHOLOGY AND [address] [place] [phone] Estimated GFR (09/11/2019 12:00 AM CDT)Only the most recent of21 resultswithin the time period is included. Estimated GFR 8 (A) mL/min/1.73 [facility] Comment: m2 HOSPITAL Catergory Units Interpretation G1 >=90 Normal or high G2 60-89 Mildly decreased G3a 45-59 Mildly to moderately decreas ed G3b 30-44 Moderately to severely decre ased G4 15-29 Severely decreased G5 <15 Kidney failure The eGFR was calculated using the Chronic Kidney Disea se Epidemiology Collaboration (CKD-EPI) equation. Interpretation is based on recommendations of the National Kidney Foundation-Kidney Disease Outcomes Tristen lity Initiative (NKF-KDOQI) published in 2014. Specimen Performing Organization Address City/[facility]/Zipcode Phone Number [facility] DEPARTMENT OF PATHOLOGY AND [address] [place] [phone] Basic metabolic panel (09/11/2019 12:00 AM CDT)Only the most recent of18 results within the time period is included. Pathologist Sig nature Sodium 133 (L) 135 - 148 mEq/L [facility] Potassium 3.7 3.5 - 5.0 mEq/L [facility] Chloride 95 (L) 98 - 112 mEq/L [facility] CO2 23 (L) 24 - 31 mEq/L [facility] Anion gap 15@ANIO 7 - 15 mEq/L [facility] BUN 35 (H) 8 - 23 mg/dL [facility] Creatinine 4.76 (H) 0.50 - 0.90 mg/dL [facility] Glucose 80 65 - 99 mg/dL [facility] Calcium 8.4 (L) 8.8 - 10.2 mg/dL [facility] Specimen Blood Performing Organization Address City/[facility] Phone Number [facility] DEPARTMENT OF PATHOLOGY AND [address] [place] [address] [phone] [phone] CBC hemogram (09/08/2019 7:30 AM CDT) [facility] nature WBC 8.65 4.50 - 11.00 k/uL [facility] RBC 3.17 (L) 4.20 - 5.50 m/uL [facility] HGB 8.3 (L) 12.0 - 16.0 g/dL [facility] HCT 27.5 (L) 37.0 - 47.0 % [facility] MCV 86.8 82.0 - 100.0 fL [facility] MCH 26.2 (L) 27.0 - 34.0 pg [facility] MCHC 30.2 (L) 31.0 - 37.0 g/dL [facility] RDW - SD 46.7 37.0 - 55.0 fL [facility] MPV 10.2 8.8 - 13.2 fL [facility] Platelet count 298 150 - 400 k/uL [facility] Nucleated RBC 0.00 /100 WBC [facility] Specimen Blood Performing Organization Address City/[facility] Phone Number [facility] DEPARTMENT OF PATHOLOGY AND [address] [place] [address] [phone] [phone] Phosphorus level (09/08/2019 4:00 AM CDT)Only the most recent of6 resultswithin the time period is included. [facility] Phosphorus 5.5 (H) 2.4 - 4.5 mg/dL [facility] L Specimen Blood Performing Organization Address City/[facility] Phone Number [facility] DEPARTMENT OF PATHOLOGY AND [address] [place] [address] [phone] [phone] Magnesium level (09/08/2019 4:00 AM CDT)Only the most recent of6 resultswithin the time period is included. Pathologist Sig nature Magnesium 2.0 1.6 - 2.4 mg/dL [facility] L Specimen Blood Performing Organization Address [facility] Phone Number [facility] DEPARTMENT OF PATHOLOGY AND [address] [place], [place] [address] GENOMIC MEDICINE [facility] [address] [place] [phone] [place] > I Hour (09/07/2019 9:16 AM CDT) Specimen Narrative Performed At EXAMINATION: [place] > 1 HOUR [facility] C-arm fluoroscopy was requested in OR. Location: OPC19 - OR12 Procedure: LEFT HIP PINNING Start Time: 30 End Time: 15 Fluoro Time: 1MIN 27SEC Dose (mGy): 6.98mGy Tech(s): jm IMPRESSION: Separate operative report will be issued by the physic tristin performing the procedure. [id number] Procedure Note Interface, Radiology Results Incoming - 09/07/2019 8:51 PM CDT EXAMINATION: OR [place] > 1 HOUR C-arm fluoroscopy was requested in OR. Location: OPC19 - OR12 Procedure: LEFT HIP PINNING Start Time: 729 End Time: 914 Fluoro Time: 1MIN 27SEC Dose (mGy): 6.98mGy Tech(s): jm IMPRESSION: Separate operative report will be issued by the physician performing the procedure. [id number] Performing Organization Address City/[facility] Phone Number [facility] [address] [place] [address] Airway (09/07/2019 8:41 AM CDT) Narrative Performed At Matias Douglas Jr., CRNA 2019 8:42 AM Airway Date/Time: 09/07/2019 8:05 AM Performed by: Matias Douglas Jr., CR NA Authorized by: Jm Magana MD Location: OR Urgency: Elective Difficult Airway: No Anesthesiologist: Jm Magana MD Resident/HAND DECORATOR/AA: Matias Douglas CRNA Performed by: resident/HAND DECORATOR/AA Preoxygenated with 100% O2: Yes C-spine Precautions Maintained Throughou t: Yes Mask Ventilation: Easy mask Final Airway Type: Endotracheal airway Final Endotracheal Airway: ETT Cuffed: Yes Technique Used: Direct laryngoscopy Devices/Methods Used in Placement: Int ubating stylet Insertion Site: Oral Blade Type: Mccain Laryngoscope Blade/Videolaryngoscope Herbert de Size: 2 ETT Size (mm): 6.0 Cuff at minimum occlusion pressure: Yes Measured from: Teeth ETT to Teeth (cm): 21 Placement Verified by: CO2 detection, di rect visualization and equal breath sounds Laryngoscopic view: Grade I - full vie w of glottis Rapid Sequence Induction (RSI): No Modified RSI: No Number of Attempts at Approach: 1 POC panel 4 (09/07/2019 6:48 AM CDT) [facility] POC sodium 131 (L) 135 - 148 [facility] mmol/L [facility] POC potassium 4.0 3.5 - 5.0 [facility] mmol/L [facility] POC hematocrit 30 (L) 37 - 47 % [facility] POC glucose 132 (H) 65 - 99 mg/dL [facility] Comment: HOSPITAL Senior Ui Designer Name: Lamont Contreras Device ID: [id number] Specimen Performing Organization Address City/[facility] Phone Number [facility] DEPARTMENT OF PATHOLOGY AND [address] [place] [address] [phone] [address] Total iron binding capacity (09/07/2019 4:30 AM CDT)Only the most recent of2 resultswithin the time period is included. [facility] Sig nature Iron level 31 (L) 37 - 145 ug/dL [facility] Iron binding capacity 166 (L) 200 - 400 ug/dL [facility] % Saturation 18.7 15.0 - 38.0 % [facility] Specimen Blood Performing Organization Address [facility] Phone Number [facility] DEPARTMENT OF PATHOLOGY AND [address] [place] [address] [phone] [phone] Partial thromboplastin time, activated (09/07/2019 4:30 AM CDT)Only the most recent of4 resultswithin the time period is included. [facility] PTT 36.4 (H) 23.0 - 36.0 [facility] Comment: [facility] PTT therapeutic range for unfractionated heparin is 61.0-112.0 seconds which corresponds to Anti-Xa 0.3-0.7 U/ml. Specimen Blood Performing Organization Address City/[facility]/Zipcode Phone Number [facility] DEPARTMENT OF PATHOLOGY AND [address] [place] [address] [place] [phone] Prothrombin time with INR (09/07/2019 4:30 AM CDT)Only the most recent of4 resultswithin the time period is included. Prothrombin time 14.6 (H) 11.5 - 14.5 [facility] INR 1.1 [place] Comment: [facility] International Normalized Ratio (INR) is a therapeu [facility] HOSPITAL monitoring tool for patients who are stable on oral anticoagulant therapy. An INR of 2.0-3.0 is suggested for deep vein thrombosis/pulmonary embolism. Specimen Blood Performing Organization Address City/[facility] Phone Number [facility] DEPARTMENT OF PATHOLOGY AND [address] [place] [address] [place] [phone] Ferritin level (09/07/2019 4:30 AM CDT)Only the most recent of2 resultswithin the time period is included. Pathologist Sig nature Ferritin level 928 (H) 13 - 150 ng/mL [facility] Specimen Blood Performing Organization Address City/[facility] Phone Number [facility] DEPARTMENT OF PATHOLOGY AND [address] [place] [address] [place] [phone] Albumin level (09/06/2019 4:00 AM CDT) Pathologist Sig nature Albumin 2.5 (L) 3.5 - 5.0 g/dL [facility] Specimen Blood Performing Organization Address City/[facility] Phone Number [facility] DEPARTMENT OF PATHOLOGY AND [address] [place] [address] [place] [address] ECG 12 lead (09/05/2019 6:15 PM CDT)Only the most recent of3 resultswithin the time period is included. Pathologist Sig nature Ventricular rate 77 [facility] MUSE Atrial rate [address] interval 130 [facility]USE QRSD interval 90 [facility] QT interval 380 [facility] QTC interval 430 [facility] MUSE P axis 1 47 [facility] MUSE QRS axis 1 10 [facility]USE T wave axis 127 [facility] MUSE EKG impression Normal sinus rhythm-Minimal voltage criteria for LVH, may be normal variant ( Pete product )-ST & T wave abnormality, consider lateral ischemia-Abnormal ECG-In automated comparison with ECG of 19-AUG-2019 09:26,-No significant change was [facility] MUSE found- Specimen Narrative Performed At This result has an attachment that is no t available. Performing Organization Address [facility] Phone Number [facility] [address] [place] [address] XR Hip 2-3 View Left (09/05/2019 2:13 PM CDT) Specimen Narrative Performed At EXAMINATION: XR HIP 2-3 VIEWS LEFT [facility] CLINICAL HISTORY: Left hip fracture COMPARISON: None available. IMPRESSION: 1. Approximately age and gender appropriate mineraliza tion of the osseous structures. 2. Prominent rim osteophyte formation versus a mildly impacted subcapital femoral neck fracture, advanced imaging as indicated. Mild left hip osteoarthritis. There is no additional suspec ida acute fracture or dislocation. 3. Vascular consultations are present. [facility]-[id number] Procedure Note Hm Interface, Radiology Results Incoming - 09/05/2019 2:19 PM CDT EXAMINATION: XR HIP 2-3 VIEWS LEFT CLINICAL HISTORY: Left hip fracture COMPARISON: None available. IMPRESSION: 1. Approximately age and gender appropri ate mineralization of the osseous structures. 2. Prominent rim osteophyte formation ve rsus a mildly impacted subcapital femoral neck fracture, advanced imaging as indicated. Mild left hip osteoarthritis. There is no additional suspected acute fracture or dislocation. 3. Vascular consultations are present. [id number] Performing Organization Address City/[facility]/Zipcode Phone Number [facility] [address] [place] [address] XR Femur 2 Vw Left (09/05/2019 2:13 PM CDT) Specimen Narrative Performed At EXAMINATION: XR FEMUR 2 VW LEFT [facility] CLINICAL HISTORY: Fracture femur COMPARISON: None. FINDINGS: There is a subcapital femoral neck fracture, with slig ht impaction and valgus angulation noted. Moderate vascular calcifications are pre sent. IMPRESSION: Left-sided Subcapital femoral neck fract ure. [id number] Procedure Note Interface, Radiology Results Incoming - 09/05/2019 2:18 PM CDT EXAMINATION: XR FEMUR 2 VW LEFT CLINICAL HISTORY: Fracture femur COMPARISON: None. FINDINGS: There is a subcapital femoral neck fract ure, with slight impaction and valgus angulation noted. Moderate vascular calcifications are pre sent. IMPRESSION: Left-sided Subcapital femoral neck fract ure. [id number] Performing Organization Address City/State/Zipcode Phone Number [facility] [address] [place] [address] XR Pelvis 1 Or 2 Vw (09/05/2019 2:12 PM CDT) Specimen Narrative Performed At PROCEDURE: XR PELVIS 1 OR 2 VW [facility] CLINICAL HISTORY: hip pain COMPARISON: None. TECHNIQUE: Multiple AP views of the pelvis are subm itted. FINDINGS: No fracture, dislocation, periosteal reaction or bone destruction is identified. No acute bony abnormality is seen. Minimal degenerative changes are seen within the left and right hips. Small osteophytes are present. The pubic rami are intact. SI joints unremarkable. Min imal degenerative changes are present. If the patient's symptoms persist or deteriorate, foll ow-up radiograph in 10 days time is recommended, if clini lainey indicated. IMPRESSION: 1. There is no acute fracture or subluxa tion. 2. There are minimal degenerative changes seen within the left and right hip joints. [id number] . Procedure Note Interface, Radiology Results Incoming - 09/05/2019 2:18 PM CDT PROCEDURE: XR PELVIS 1 OR 2 VW CLINICAL HISTORY: hip pain COMPARISON: None. TECHNIQUE: Multiple AP views of the pelvis are subm itted. FINDINGS: No fracture, dislocation, periosteal isabel ction or bone destruction is identified. No acute bony abnormality is seen. Minimal degenerative changes are seen wi thin the left and right hips. Small osteophytes are present. The pubic rami are intact. SI joints unr emarkable. Minimal degenerative changes are present. If the patient's symptoms persist or det eriorate, follow-up radiograph in 10 days time is recommended, if clinically indicated. IMPRESSION: 1. There is no acute fracture or subluxa tion. 2. There are minimal degenerative change s seen within the left and right hip joints. [id number] . Performing Organization Address City/[facility]/Zipcode Phone Number [facility] [address] [place] [address] Type and screen (09/05/2019 6:10 AM CDT)Only the most recent of2 resultswithin the time period is included. Pathologist Sig nature ABO grouping O [facility] Rh type POS [facility] Antibody screen (gel) NEG [facility] Specimen Blood Performing Organization Address [facility] Phone Number [facility] DEPARTMENT OF PATHOLOGY AND [address] [place], [place] [address] GENOMIC MEDICINE [facility] [address] [place] [address] XR Chest 2 Vw (08/27/2019 4:54 PM CDT) Specimen Narrative Performed At EXAMINATION: [facility] 2 [facility] H[facility]: 79 years Female R05 Cough, Co ugh new onset COMPARISON: AP view the chest dated . FINDINGS: A right IJ dialysis catheter has been placed with the tips projected over the right atrium. The costophrenic sulci are mony p laterally without definite effusion. The cardiac silhouette is e nlarged. There are mild atherosclerotic ossifications in th e aortic knob. The lungs are clear. No acute osseous abn ormality is identified in the chest. IMPRESSION: No acute intrathoracic abn ormality identified. [id number] Procedure Note Interface, Radiology Results Incoming - 08/27/2019 5:03 PM CDT EXAMINATION: XR CHEST 2 VW HISTORY: 79 years Female R05 Cough, Cou gh new onset COMPARISON: AP view the chest dated 07/22. FINDINGS: A right IJ dialysis catheter has been pl aced with the tips projected over the right atrium. The costophrenic sulci are sharp laterally without definite effusion. The cardiac silhouette is enlarged. There are mild atherosclerotic ossifications in the aortic knob. The lungs are clear. No acu te osseous abnormality is identified in the chest. IMPRESSION: No acute intrathoracic abno rmality identified. [facility]-[id number] Performing Organization Address [facility]/Zipcode Phone Number [facility] [address] [place] [address] URINALYSIS, COMPLETE, WITH REFLEX TO CULTURE (08/27/2019 4:10 PM CDT) Color, UA YELLOW YELLOW [facility] [place] Appearance CLOUDY (A) CLEAR [facility] [place] Specific gravity, 1.024 1.001 - 1.035 [facility] urine [place] pH, urine < OR = 5.0 5.0 - 8.0 [facility] [place] Glucose, urine 1+ (A) NEGATIVE [facility] [place] Bilirubin, UA NEGATIVE NEGATIVE [facility] [place] Ketones, UA NEGATIVE NEGATIVE [facility] [place] Occult blood, NEGATIVE NEGATIVE [facility] urine [place] Protein, UA 3+ (A) NEGATIVE [facility] [place] Nitrite, UA NEGATIVE NEGATIVE [facility] [place] Leukocyte TRACE (A) NEGATIVE [facility] esterase, UA [place] WBC, UA 20-40 (A) < OR = 5 /HPF [facility] [place] RBC, UA 0-2 < OR = 2 /HPF [facility] [place] Squamous 0-5 < OR = 5 /HPF [facility] epithelial cells, [place] UA Bacteria, UA NONE SEEN NONE SEEN /HPF [facility] [place] Hyaline casts, UA NONE SEEN NONE SEEN /LPF [facility] [place] Reflex CULTURE [facility] RESULTS TO FOLLOW Specimen Narrative Performed At FASTING:UNKNOWN [facility] FASTING: UNKNOWN Resulting Agency Comment Performing Organization Information: Site ID: [facility] Name: [facility] Address: [address] [place] [phone] Director: Ed Roldan Performing Organization Address City/State/Zipcode Phone Number [employer] [place] [address] [place] [phone] Urine culture (08/27/2019 4:10 PM CDT)Only the most recent of2 resultswithin the time period is included. Urine culture SEE NOTE [facility] Comment: [place] CULTURE, URINE, ROUTINE Micro Number: [id number] Test Status: Final Specimen Source: URINE Specimen Quality: Adequate Result: Multiple organisms p resent, each less than 10,000 CFU/mL. These organisms , commonly found on external and internal genitalia, are considered to be col onizers. No further testing performed. Specimen Narrative Performed At FASTING:UNKNOWN [facility] FASTING: UNKNOWN Resulting Agency Comment Performing Organization Information: Site ID: [facility] Name: [facility] Address: [address] [place] [id number] Director: Ed Roldan Performing Organization Address City/State/Zipcode Phone Number [facility] [employer] [place] [address] [place], [place] [phone] Manual differential (08/21/2019 2:00 AM B[facility])Only the most recent of3 results within the time period is included. Manual differential PERFORMED [facility] Neutrophils 80.0 (H) 39.0 - 69.0 % [facility] Lymphocytes 15.0 (L) 25.0 - 45.0 % [facility] Monocytes 2.0 0.0 - 10.0 % [facility] Eosinophils 3.0 0.0 - 5.0 % [facility] Basophils 0.0 0.0 - 1.0 % [facility] Metamyelocytes 0 % [facility] Promyelocytes 0 % [facility] Platelet slide review Yael adequate [facility] Anisocytosis Moderate [facility] Polychromasia Moderate [facility] Ovalocytes Moderate [facility] Specimen Performing Organization Address City/[facility]/Zipcode Phone Number [facility] DEPARTMENT OF PATHOLOGY AND [address] [place] [phone] GEN[address] [address] Cv stress test (08/17/2019 8:37 AM BLEACHER LARD) Resting HR 77 H MUSE Resting BP 114 [facility] MUSE Peak MET Achieved 1.0 [facility] MUSE Protocol Name REGADENO [facility] MUSE Time in Exercise 00:01:00 H MUSE Phase Max Systolic BP 120 H MUSE Max Diastolic BP 60 H MUSE Max Heart Rate 90 H MUSE Max Predicted Heart 143 [facility] MUSE Rate Target HR Formula (220 - Age)*100% H MUSE Test Indication CHF EVALUATION FOR [facility] MUSE ISCHEMIA Arrhy During Ex [facility] MUSE ECG Interp Before EX [facility] MUSE ECG Interp During Ex H MUSE Ex Summary Comment [facility] MUSE Overall HR Response [facility] MUSE to Exercise Overall BP Response [facility] MUSE To Exercise Reason for Protocol Complete [facility] MUSE Termination Stress Test Waveform interpreted in [facility] MUSE Impression report associated with image study. No interpretation is provided as part of this Stress ECG report.--Electronically Signed By Farheen Gibbs MD ([id number]), editorial clerk Jacqueline Rice ([id number]) on 08/17/2019 7:58:38 PM Specimen Narrative Performed At This result has an attachment that is no t available. Performing Organization Address City/State/Zipcode Phone Number [facility] MUSE [address] [place] [address] Nm myocardial perfusion (08/17/2019 8:37 AM BLEACHER LARD) Specimen Narrative Performed At This result has an attachment that is no t available. [facility] Nuclear Cardiology and Card [facility] [place] [address] [address] [phone] Myocardial Perfusion Imagin g Report Stress ECG tracings are available in MUSE, EP IC and [employer] All ECG interpretations are included in this report Pat.Name: AURY MOULTON Pat.ID: [id number] .Date: 08/17/2019 Refer.MD: DOROTA MURILLO MD Exam Time: 8:39:00 AM Study Type:Myocardial Perfusion Imaging Height: 58in BSA: 1.33 m2 Age: 7 1940,79Y Sex: FEMALE BP: 114/57 HR: 76 bpm Nuclear Tech:STEPHANIE Barrett, DIRECTOR OF REGULATORY AFFAIRS Pat. Stat.:Inpatient Room: [facility] A Tape Vol: 19.86, Nuclear Event ID:[id number] Order ID: [id number] Reason for Study:CHF, Evaluate for Ischemia History / Clinical:Congestive heart failure, Diabetes, Hypertension, Peripheral vascular disease, Renal insufficiency/failu re, Carotid stenosis Procedures: Single Day Stress / Rest Risk Factors:Diabetes, Hypertension Clinical Symptoms:Regadenoson Physical Exam:S1, S2 SUMMARY: SCINTIGRAPHIC RESULTS Perfusion Defect Size (% LV) 8% Total 8% Ischemia 0% Scar Left Ventricular Perfusion Results There is a moderate apical perfusion defect during str ess which improves with rest imaging. Gated SPECT Results The post stress left ventricular ejection fraction is 48% with hypokinesis of all hypoperfused abel. Left ventricu lar end-diastolic volume is 66 ml; end-systolic volume is 34 ml. The left ventricle is of normal size at stress and rest. Conclusion Abnormal regadenoson Tc-99m tetrofosmin myocardial per fusion study compatible with ischemia in the apical left anterior d escending coronary artery vascular territory. The LVEF is normal . Stress EKG was abnormal. CT Findings: Coronary calcification is present. The ascending and descending aorta are normal in size. There is a small perficardial effu waleska . Limited lung aguilar show moderate right pleural effusion and s mall left pleural effusion. Ground glass opacity in the right middle lobe of the lung. Comments The study results indicate a intermediate (1%-2%) karen al risk for a cardiac or non-fatal myocardial infarction. Study Quality/Artifacts The study quality is good. Comparison to Previous Study None available. FINDINGS: STRESS: Baseline Vital Signs: Intervention Regadenoson 0.4mg/5ml IV over 10 seconds followed by radiotracer injection a nd 5ml saline flush Baseline EKG Normal Sinus Rhythm, Left ventricular hyp ertrophy, Prolonged QT Heart Rate: 76 Atropine Administered: 0 Rest BP: 114/57 Stress Test Results: Target HR: 122 Symptoms and Complications: Stress-induced Arrhythmias None Reason for Stopping Test: As per Regadenoson protocol Symptoms During Test Shortness of breath Complications None Other: Normal heart rate response to pharmacolog ical stress, Normal blood pressure response to pharmacological stre ss ECG / Stress Interpretation: Abnormal regadenoson stre ss test compatible with myocardial ischemia., Ischemic ST segm ent changes occurred in leads V4-V6 beginning 1, 00 minutes into e xercise regadenoson at a heart rate of 85 beats/minute. Signed 08/17/2019 11:46 MARIN Gibbs MD Procedure Note Interface, Radiology Results In - 2019 11:46 AM B[facility] Nuclear Cardiology and Cardiac CT [address] [place] [id number] [phone] Myocardial Perfusion I maging Report Stress ECG tracings are available in MUSE, [employer] and [employer] All ECG interpretations are in cluded in this report Pat.Name: AURY MOULTON Pat.I D: [id number] St.Date: 08/17/2019 Refer.MD: DOROTA MURILLO MD Exam Time: 8:39:00 AM Study Type:Myocardial Perfusion Imaging Height: 58in BSA: 1.33 m2 Age: 7 1940,79Y Sex: FEMALE BP: 114/57 HR: 76 bpm Nuclear Tech:STEPHANIE Barrett, [facility] Pat. Stat.:Inpatient Room: [facility] A Tape Vol: 19.86, Nuclear Event ID:[id number] Order ID: [id number] Reason for Study:CHF, Evaluate for Ische misty History / Clinical:Congestive heart fail ure, Diabetes, Hypertension, Peripheral vascular disease, Renal insuf ficiency/failure, Carotid stenosis Procedures: Single Day Stress / Rest Risk Factors:Diabetes, Hypertension Clinical Symptoms:Regadenoson Physical Exam:S1, S2 SUMMARY: SCINTIGRAPHIC RESULTS Perfusion Defect Size (% LV) 8% Total 8% Ischemia 0% Scar Left Ventricular Perfusion Results There is a moderate apical perfusion def ect during stress which improves with rest imaging. Gated SPECT Results The post stress left ventricular ejectio n fraction is 48% with hypokinesis of all hypoperfused abel. Left ventricular end-diastolic volume is 66 ml; end-systolic volume is 34 ml. The left ventricle is of normal size at stress and rest. Conclusion Abnormal regadenoson Tc-99m tetrofosmin myocardial perfusion study compatible with ischemia in the apical l eft anterior descending coronary artery vascular territory. The LVEF is normal. Stress EKG was abnormal. CT Findings: Coronary calcification is present. The ascending and descending aorta are normal in size. There is a small per ficardial effusion . Limited lung aguilar show moderate right pleural effusion and small left pleural effusion. Ground glass opacity in the right middle lobe of the lung. Comments The study results indicate a intermediat e (1%-2%) annual risk for a cardiac or non-fatal myocardial in farction. Study Quality/Artifacts The study quality is good. Comparison to Previous Study None available. FINDINGS: STRESS: Baseline Vital Signs: Inter vention Regadenoson 0.4mg/5ml IV over 10 seconds followed by radiotrac er injection and 5ml saline flush Baseline EKG Normal Sinus Rhythm, Left v entricular hypertrophy, Prolonged QT Heart Rate: 76 Atrop ine Administered: 0 Rest BP: 114/57 Stress Test Results: Target HR: 122 Symptoms and Complications: Stress-induced Arrhythmias None Reason for Stopping Test: As per Regaden oson protocol Symptoms During Test Shortness of breath Complications None Other: Normal heart rate response to pharmacological stress, Normal blood pressure response to pharma cological stress ECG / Stress Interpretation: Abnormal re gadenoson stress test compatible with myocardial ischemia., Is chemic ST segment changes occurred in leads V4-V6 beginning 1, 00 minutes into exercise regadenoson at a heart rate of 85 beats/ minute. Signed 08/17/2019 11:46 AM Farheen Gibbs MD Performing Organization Address City/State/Zipcode Phone Number [facility] [address] [place] [address] CT Head Wo Contrast (08/16/2019 11:21 AM BLEACHER LARD) Specimen Narrative Performed At EXAMINATION: CT HEAD WO CONTRAST [facility] CLINICAL HISTORY: Altered level of con sciousness (LOC) unexplained COMPARISON: None. FINDINGS: There is generalized brain parenchymal involution atro phy with white matter nonspecific hypodensities. There is mild nonspe cific ventriculomegaly most likely related to central volume loss. 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 There is no evidence of acute hemorrhage, mass lesion, or midline shift. The morin-white matter differentiation is preserved wit h no evidence of acute territorial infarction. There is n o extra-axial fluid collection. Visualized paranasal sinuses and mastoid air cells are clear. Bones, orbits, and soft tissues are unremarkabl e All CT images were acquired using low-dose technique w ith automated exposure control. IMPRESSION: No acute intracranial hemorrhage or mass effect. [id number] Procedure Note Interface, Radiology Results Incoming - 08/16/2019 11:29 AM BLEACHER LARD EXAMINATION: CT HEAD WO CONTRAST CLINICAL HISTORY: Altered level of cons ciousness (LOC) unexplained COMPARISON: None. FINDINGS: There is generalized brain parenchymal i nvolution atrophy with white matter nonspecific hypodensities. There is mild nonspecific ventriculomegaly most likely related to central volume loss. 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 There is no evidence of acute hemorrhage , mass lesion, or midline shift. The morin-white matter differentiation is preserved with no evidence of acute territorial infarction. There is no extra-axial fluid collection. Visualized paranasal sinuses and mastoid air cells are clear. Bones, orbits, and soft tissues are unremarkable All CT images were acquired using low-do se technique with automated exposure control. IMPRESSION: No acute intracranial hemorrhage or mass effect. [id number] Performing Organization Address City/State/Zipcode Phone Number [facility] [address] [place] [address] Hepatitis C antibody (08/14/2019 10:05 AM BLEACHER LARD) Pathologist Sig nature Hepatitis C Ab Non-reactive Non-reactive [facility] Specimen Blood Performing Organization Address City/State/Zipcode Phone Number [facility] DEPARTMENT OF PATHOLOGY AND [address] [place], [place] [phone] GENOMIC MEDICINE [facility] [address] [place] [address] Hepatitis B core antibody total (08/14/2019 10:05 AM BLEACHER LARD) Pathologist Sig nature Hepatitis B core Non-reactive Non-reactive [facility] Specimen Blood Performing Organization Address [facility] Phone Number [facility] DEPARTMENT OF PATHOLOGY AND [address] [place] [phone] [facility] [address] [place] [address] Hepatitis B surface antibody (08/14/2019 10:05 AM BLEACHER LARD) Pathologist Sig nature Hepatitis B surface Non-reactive Non-reactive [facility] Specimen Blood Performing Organization Address [facility] Phone Number [facility] DEPARTMENT OF PATHOLOGY AND [address] [place] [address] [phone] [address] IR Tunneled Dialysis Catheter Placement (08/13/2019 6:37 PM [facility]) Specimen Narrative Performed At PROCEDURE: [facility] Tunneled hemodialysis catheter placement Performing Radiologist: Jeff Steele MD Assistants: None Pre Procedure Diagnosis: KRISTEN Post Procedure Diagnosis: KRISTEN Indication: Hemodialysis Complications: No immediate post procedure complication s. IMPRESSION: 1.Technically successful fluoroscopic insertion of a 1 9 cm tip to cuff hemodialysis catheter. 2.The right internal jugular vein is patent and compre ssible on preprocedure ultrasound. PLAN: The tunneled central venous catheter is ready for immediate use. PROCEDURE SUMMARY: 1.Venous access with ultrasound guidance 2.Tunneled hemodialysis catheter placeme nt under fluoroscopic guidance PROCEDURE DETAILS: Pre-procedure: Comparison studies: None Written and informed consent for the procedure and mon itored conscious sedation was obtained from the patient. Prophylactic antibiotics: None Preparation: The right anterior chest wall and neck wa s prepared and draped using all elements of maximal sterile barrier t echnique including sterile gloves, sterile gown, catheter, mask, large st erile sheet, sterile ultrasound probe cover, hand hyg iene and cutaneous antisepsis using chlorhexi dine. Anesthesia/Sedation: Level of anesthesia: Moderate Sedation Medications used: Fentanyl and Versed, 1% lidocaine an d lidocaine with epinephrine Anesthesia administration: Pulse oximetry, heart rate, and blood pressure were continuously monitored by a radiology nu rse and the performing provider. Duration of intraservice [id number] an esthesia/sedation: 19 minutes Access: Local anesthesia was administered. The vein was evalua ida with preprocedure ultrasound and noted to be patent. Real-t stormy ultrasound was used to visualize needle entry into the vessel and a p ermanent image was not stored. A 0.035 inch Amplatz was adv anced into the inferior vena cava and an imag e was archived. Vein accessed: Right internal jugular ve in Access technique: 5 Algerian micropuncture set Venography: Vein catheterized: N/A Indication for venography: Not performed Findings: N/A Hemodialysis catheter placement: An incision was made over the chest wall, and the hemo dialysis catheter was tunneled subcutaneously to the venous access site. The catheter was advanced via a peel-away sheath into the vein under fl uoroscopic guidance. The catheter tip location was fluoroscopically verified and an image w as archived. Catheter Brand/Type: Palindrome Catheter size: 14.5 Algerian Catheter length: 19 cm tip to cuff Catheter Tip Location: Atriocaval juncti on Catheter flush: None Closure: The neck access site was closed and the catheter was s ecured to the subcutaneous tissues. A sterile bandage was applied. H emostasis was achieved with manual compression. Access site closure technique: Dermabond Catheter securement technique: 2-0 silk Catheter packing: Heparin (1000U/cc) Radiation dose: Reference air Kerma: 11 mGy Additional details: Additional description of procedure: N/A Additional findings: N/A Equipment details: N/A Estimated blood loss: Less than 10 cc [facility]-[id number] Procedure Note [facility], Radiology Results Incoming - 08/14/2019 7:40 AM BLEACHER LARD PROCEDURE: Tunneled hemodialysis catheter placement Performing Radiologist: Jeff Steele MD Assistants: None Pre Procedure Diagnosis: KRISTEN Post Procedure Diagnosis: KRISTEN Indication: Hemodialysis Complications: No immediate post procedure complication s. IMPRESSION: 1.Technically successful fluoroscopic in sertion of a 19 cm tip to cuff hemodialysis catheter. 2.The right internal jugular vein is pat ent and compressible on preprocedure ultrasound. PLAN: The tunneled central venous catheter is ready for immediate use. PROCEDURE SUMMARY: 1.Venous access with ultrasound guidance 2.Tunneled hemodialysis catheter placeme nt under fluoroscopic guidance PROCEDURE DETAILS: Pre-procedure: Comparison studies: None Written and informed consent for the pro cedure and monitored conscious sedation was obtained from the patient. Prophylactic antibiotics: None Preparation: The right anterior chest wa ll and neck was prepared and draped using all elements of maximal sterile barrier technique including sterile gloves, sterile gown, catheter, mask, large sterile sheet, sterile ultrasound probe cover, hand hygiene and cutaneous antisepsis using chlorhexi dine. Anesthesia/Sedation: Level of anesthesia: Moderate Sedation Medications used: Fentanyl and Versed, 1 % lidocaine and lidocaine with epinephrine Anesthesia administration: Pulse oximetr y, heart rate, and blood pressure were continuously monitored by a radiology nurse and the performing provider. Duration of intraservice [id number] an esthesia/sedation: 19 minutes Access: Local anesthesia was administered. The v ein was evaluated with preprocedure ultrasound and noted to be patent. Real-time ultrasound was used to visualize needle entry into the vessel and a permanent image was not stored. A 0.035 inch Amplatz was adv anced into the inferior vena cava and an imag e was archived. Vein accessed: Right internal jugular ve in Access technique: 5 Algerian micropuncture set Venography: Vein catheterized: N/A Indication for venography: Not performed Findings: N/A Hemodialysis catheter placement: An incision was made over the chest wall , and the hemodialysis catheter was tunneled subcutaneously to the venous access site. The catheter was advanced via a peel-away sheath into the vein under fluoroscopic guidance. The catheter tip location was fluoroscopically verified and an image w as archived. Catheter Brand/Type: Palindrome Catheter size: 14.5 Algerian Catheter length: 19 cm tip to cuff Catheter Tip Location: Atriocaval juncti on Catheter flush: None Closure: The neck access site was closed and the catheter was secured to the subcutaneous tissues. A sterile bandage was applied. Hemostasis was achieved with manual compression. Access site closure technique: Dermabond Catheter securement technique: 2-0 silk Catheter packing: Heparin (1000U/cc) Radiation dose: Reference air Kerma: 11 mGy Additional details: Additional description of procedure: N/A Additional findings: N/A Equipment details: N/A Estimated blood loss: Less than 10 cc [facility]-[id number] Performing Organization Address [facility] Phone Number [facility] [address] [place] [address] Ionized calcium (08/13/2019 4:00 AM BLEACHER LARD)Only the most recent of2 resultswithin the time period is included. Pathologist [facility] pH 7.52 [facility] Ionized calcium 1.06 (L) 1.11 - 1.32 [facility] mmol/L HOSPITAL Specimen Plasma specimen Performing Organization Address City/[facility]/Zipcode Phone Number [facility] DEPARTMENT OF PATHOLOGY AND [address] [place], [place] [phone] GENOM[address] [address] Potassium level (08/12/2019 7:00 PM BLEACHER LARD) Pathologist [facility] Potassium 4.2 3.5 - 5.0 mEq/L [facility] Specimen Plasma specimen Performing Organization Address [facility] Ranch[facility] Phone Number [facility] DEPARTMENT OF PATHOLOGY AND [address] [place] [address] [phone] [address] XR Chest 1 Vw Portable (08/12/2019 9:16 AM BLEACHER LARD)Only the most recent of3 results within the time period is included. Specimen Narrative Performed At Study:XR CHEST 1 VW PORTABLE [facility] History: ICU pt stable with no clinica l status changes COMPARISON: 08/09/2019 IMPRESSION: A single view of the chest. Small to moderate bilatera l pleural effusions. No pneumothorax. Likely atelectasis of the lower lobes. Cardiac silhouette is enlarged, stable. Visualized o sseous structures are stable. [id number] Procedure Note Interface, Radiology Results Incoming - 08/12/2019 9:26 AM BLEACHER LARD Study:XR CHEST 1 VW PORTABLE History: ICU pt stable with no clinical status changes COMPARISON: 08/09/2019 IMPRESSION: A single view of the chest. Small to mod erate bilateral pleural effusions. No pneumothorax. Likely atelectasis of the lower lobes. Cardiac silhouette is enlarged, stable. Visualized osseous structures are stable. [id number] Performing Organization Address [facility] Phone Number [facility] [address] [place] [phone] B natriuretic peptide (08/12/2019 5:00 AM BLE[facility]ER LARD)Only the most recent of3 results within the time period is included. Pathologist Sig [employer] BNP 2,296 (H) 0 - 100 pg/mL [facility] Specimen Blood Performing Organization Address [facility] Phone Number [facility] DEPARTMENT OF PATHOLOGY AND [address] [place] [address] [phone] [address] Hemoglobin & hematocrit (08/11/2019 4:55 PM BLEACHER LARD)Only the most recent of2 resultswithin the time period is included. Pathologist Sig mansoor HGB 10.0 (L)Comment: 12.0 - 16.0 g/dL [facility] double HOSPITAL checked. HCT 30.2 (L) 37.0 - 47.0 % [facility] Specimen Blood Performing Organization Address [facility]/Zipcode Phone Number [facility] DEPARTMENT OF PATHOLOGY AND [address] [place] [address] [phone] [address] Transfuse RBC (08/11/2019 1:35 PM BLEACHER LARD)Only the most recent of2 resultswithin the time period is included.Occult blood, stool (08/11/2019 8:17 AM BLEACHER LARD) Occult blood, Positive for Occult blood (A) [facility] stool Comment: HOSPITAL Specimen Information Specimen Source: Stool Specimen Site: Nonpreserved Specimen Stool - Nonpreserved Performing Organization Address [facility] Phone Number [facility] DEPARTMENT OF PATHOLOGY AND [address] [place] [address] [phone] [address] Prepare RBC, 2 Units (08/11/2019 6:24 AM BLEACHER LARD) Product name Red Blood Cells [facility] -1, Leukored [facility] Unit number [id number] [facility] Product code [id number] [facility] Dispense status Transfused [facility] Blood expiration date [facility] Blood type code 5100 [facility] Blood type O POSITIVE [facility] Compatibility Compatible [facility] Product name Apheresis Red Cell [facility]3 #2 [facility] Unit number [id number] [facility] Product code [id number] [facility] Dispense status Transfused [facility] Blood expiration date [facility] Blood type code 5100 [facility] Blood type O POSITIVE [facility] Compatibility Compatible [facility] Specimen Blood Performing Organization Address City/[facility] Phone Number [facility] DEPARTMENT OF PATHOLOGY AND [address] [place] [address] [phone] [address] Smear review (08/11/2019 4:35 AM BLEACHER LARD) Pathologist Sig nature Platelet slide review Yael adequate [facility] Anisocytosis Moderate [facility] Polychromasia Moderate [facility] Ovalocytes Moderate [facility] Specimen Performing Organization Address City/[facility]/Zipcode Phone Number [facility] DEPARTMENT OF PATHOLOGY AND [address] [place] [address], [place] [phone] GENOMIC MEDICINE [facility] [address] [place] [address] [place] Renal Doppler (08/09/2019 9:00 PM BLEACHER LARD) Specimen Narrative Performed At EXAMINATION: US RENAL DOPPLER [facility] CLINICAL HISTORY: kristen COMPARISON: None. TECHNIQUE: Doppler ultrasound of the r enal vasculature FINDINGS: RIGHT: The peak systolic velocity in the main right renal artery is 50 cm/s. Renal to aortic ratio is 1.0. Resistive indices measure 0.78-0.86. Main right renal vein is patent. LEFT: The peak systolic velocity in the main left re nal artery is 102 cm/s. Renal to aortic ratio is 2.0. Resistive indices measure 0.84-0.92. Main left renal vein is patent. IMPRESSION: No Doppler sonographic evidence of signi ficant renal artery stenosis. Elevated resistive indices may be related to underlyin g medical/parenchymal renal disease. [facility]-[id number] Procedure Note Hm Interface, Radiology Results Incoming - 08/09/2019 10:35 PM BLEACHER LARD EXAMINATION: US RENAL DOPPLER CLINICAL HISTORY: kristen COMPARISON: None. TECHNIQUE: Doppler ultrasound of the re nal vasculature FINDINGS: RIGHT: The peak systolic velocity in th e main right renal artery is 50 cm/s. Renal to aortic ratio is 1.0. Resistive indices measure 0.78-0.86. Main right renal vein is patent. LEFT: The peak systolic velocity in the main left renal artery is 102 cm/s. Renal to aortic ratio is 2.0. Resistive indices measure 0.84-0.92. Main left renal vein is patent. IMPRESSION: No Doppler sonographic evidence of signi ficant renal artery stenosis. Elevated resistive indices may be relate d to underlying medical/parenchymal renal disease. [id number] Performing Organization Address City/State/Zipcode Phone Number [facility] [address] [place] [address] Body fluid consult (08/09/2019 11:49 AM BLEACHER LARD) Body fluid consult Done [facility] Comment: HOSPITAL Approximately 1 granular cast per low power fiel d. One hyaline cast per low power field. Small cluster of tubular epithelial kallie ls. No tubular epithelial casts seen. Findings reviewed with Dr. Racquel weaver on 08/09/2019 Reviewed by Camila Richard M.D. 08/09/2019 Specimen Fluid Performing Organization Address City/[facility]/Zipcode Phone Number [facility] DEPARTMENT OF PATHOLOGY AND [address] [place] [address] [phone] [address] Urinalysis, automated with microscopy (08/09/2019 11:49 AM BLEACHER LARD) Pathologist Sig nature Color, UA Straw [facility] Appearance, UA Clear [facility] Specific gravity, UA 1.006 1.001 - 1.035 [facility] pH, UA 5.0 5.0 - 8.5 [facility] Protein, UA 3+ (A) Negative [facility] Glucose, UA 3+ (A) Negative [facility] Ketones, UA Negative Negative [facility] Bilirubin, UA Negative Negative [facility] Blood, UA Small (A) Negative [facility] Nitrite, UA Negative Negative [facility] Urobilinogen, UA <2.0 <2.0 [facility] Leukocyte esterase, Negative Negative [facility] Epithelial cells, UA <1 /HPF [facility] WBC, UA None seen 0 - 4 /HPF [facility] RBC, UA 2 0 - 5 /HPF [facility] Bacteria, UA Few None seen [facility] Granular casts, UA 1 0 - 1 /LPF [facility] Hyaline casts, UA 1 /LPF [facility] Yeast, UA None seen [facility] Yeast with None seen [facility] pseudohyphae, [facility] Specimen Urine Performing Organization Address City/[facility] Phone Number [facility] DEPARTMENT OF PATHOLOGY AND [address] [place] [address] [phone] [address] Barnett antibody (08/09/2019 11:45 AM BLEACHER LARD) Barnett antibody <0.2 0.0 - 0.9 [facility] Barnett antibody Negative [facility] Comment: SCIENTOLOGY Anti-Barnett antibodies occurs in 30-35% of system ic lupus erythematosus HOSPITAL (SLE) cases, but is very specific for SLE. It may also present in mixed connective-tissue disease (MCTD). Specimen Serum Performing Organization Address City/[facility] Phone Number [facility] DEPARTMENT OF PATHOLOGY AND [address] [place] [address] [phone] [address] Glomerular basement membrane Ab IgG (IFA) (08/09/2019 11:45 AM BLEACHER LARD) Glomerular Negative Negative [facility] basement membrane Comment: Ab INTERPRETIVE INFORMATION: GBM Ab, IgG (IFA) When present, IgG antibody to glomerular basement memb peter (GBM) antigen detected by either indirect fluorescent antibo dy (IFA) or multiplex bead assay helps support a diagnosis of [place] syndrome. However, the combined result of both assay s performed during initial evaluation improves the diagnostic sens itivity for disease. A positive result in one or both assays shoul d be confirmed by renal biopsy. Test developed and characteristics determined by [facility]. See Compliance Statement D: [employer]/ CS Performed by [facility], [address] [place] [id number] [email or web address], Dusty Rees MD, Lab. Director Specimen Serum Performing Organization Address City/[facility] Phone Number [facility] [address] [place] [address] [facility] [address] [place] [address] DNA Ab screen (08/09/2019 11:45 AM BLEACHER LARD) Pathologist Sig nature DNA Ab screen Not Detected Not-Detected [facility] Specimen Blood Performing Organization Address City/[facility] Phone Number [facility] DEPARTMENT OF PATHOLOGY AND [address] [place] [address] [phone] [address] TORITO titer (08/09/2019 11:45 AM BLEACHER LARD) Pathologist Sig nature TORITO titer 1:160 (A) Not-Detected [facility] TORITO pattern Speckle (A) Not-Detected [facility] Specimen Blood Performing Organization Address City/[facility]/Zipcode Phone Number [facility] DEPARTMENT OF PATHOLOGY AND [address] [place] [address] [phone] [address] Anti-neutrophilic cytoplasmic Abs panel (08/09/2019 11:45 AM BLEACHER LARD) Pathologist Sig nature ANCA screen Negative Negative [facility] Specimen Blood Performing Organization Address [facility] Phone Number [facility] DEPARTMENT OF PATHOLOGY AND [address] [place] [address] [place] [address] C3 complement component (08/09/2019 11:45 AM BLEACHER LARD) Pathologist [facility] C3 complement 92 90 - 180 mg/dL [facility] L Specimen Plasma specimen Performing Organization Address City/[facility] Phone Number [facility] DEPARTMENT OF PATHOLOGY AND [address] [place] [address] C4 complement component (08/09/2019 11:45 AM BLEACHER LARD) Pathologist [facility] C4 complement 38 10 - 40 mg/dL [facility] Specimen Plasma specimen Performing Organization Address [facility] Phone Number [facility] DEPARTMENT OF PATHOLOGY AND [address] [place] [address] [place] [address] TORITO (08/09/2019 11:45 AM BLEACHER LARD) Pathologist [facility] TORITO screen Positive (A) Negative [facility] Comment: HOSPITAL Test performed using [employer] DAPI TORITO kit (Indirect Immunofluorescence Assay) for Anti-Nuclear Antibody on IntoloopA-Lyser 160 Analyzer. Specimen Blood Performing Organization Address [facility] Phone Number [facility] DEPARTMENT OF PATHOLOGY AND [address] [place] [address] D-dimer (08/09/2019 5:20 AM BLEACHER LARD) Pathologist [facility] D-dimer 2.05 (H) 0.00 - 0.40 [facility] Comment: ug/mL FEU HOSPITAL Units are ug/ml Fibrinogen Equivalent Unit. When combined with low clinical probability, D-dimer r esults of less than 0.5 ug/ml FEU have a good negative pred ictive value in excluding PE or DVT. For D-dimer results greater than 0.5 ug/ml FEU furth er testing is indicated if PE or DVT is suspected clini lainey. Elevated D-dimer results have been reported in DVT, PE , and DIC cases and may indicate the presence of a clot. D-dimer results may be elevated due to old age, pregna ncy, inflammatory diseases, trauma, post-operative states, sepsis, and malignancies. Specimen Blood Performing Organization Address City/[facility]/Zipcode Phone Number [facility] DEPARTMENT OF PATHOLOGY AND [address] [place] [address] Venous blood gas (08/09/2019 5:20 AM BLEACHER LARD) Pathologist [facility] pH, venous 7.28 (L) 7.32 - 7.42 [facility] pCO2, venous 44 (L) 45 - 51 mmHg [facility] pO2, venous 39 25 - 40 mmHg [facility] Base excess, venous -6 (L) -2 - 2 meq/L [facility] O2 saturation, 66 40 - 70 % [facility] Bicarbonate, venous 20.2 (L) 21.0 - 28.0 [facility] mmol/L HOSPITAL Specimen Blood Performing Organization Address [facility] Phone Number [facility] DEPARTMENT OF PATHOLOGY AND [address] [place] [address] Creatine kinase, total (CPK) (08/09/2019 4:00 AM BLEACHER LARD) Pathologist [facility] Creatine kinase 42 26 - 192 U/L [facility] L Specimen Plasma specimen Performing Organization Address City/[facility] Phone Number [facility] DEPARTMENT OF PATHOLOGY AND [address] [place] [phone] [place] [phone] [place] lambda free light chain with ratio (08/09/2019 12:17 AM BLEACHER LARD) Pathologist Sig nature [place] light chain 164.45 (H) 3.30 - 19.40 [facility] mg/L [facility] Lambda light chain 95.70 (H) 5.70 - 26.30 [facility] mg/L [facility] [place] lambda ratio 1.72 (H) 0.26 - 1.65 [facility] Specimen Plasma specimen Performing Organization Address [facility] Phone Number [facility] DEPARTMENT OF PATHOLOGY AND [address] [place] [address] [phone] [address] Serum electrophoresis (08/09/2019 12:17 AM BLEACHER LARD) Protein 5.8 (L) 6.3 - 8.3 [facility] Comment: g/dL SCIENTOLOGY Rxvhgjp8301.6-7.0 g/dL HOSPITAL 1 liia7552.4-7.6 g/dL 7 months-4kbkd840.1-7.3 g/dL 1-2 dljaf165.6-7.5 g/dL >3 omkxg394.0-8.0 g/dL 18-5644991.3-8.3 g/dL SPE albumin 3.69 (L) 4.00 - 5.30 [facility] g/dL [facility] SPE alpha 1 0.16 0.10 - 0.25 [facility] g/dL [facility] SPE alpha 2 0.70 0.58 - 0.84 [facility] g/dL [facility] SPE beta 0.56 0.50 - 1.10 [facility] g/dL [facility] SPE gamma 0.69 0.60 - 1.30 [facility] g/dL [facility] SPE extended See [facility] interpretation CommentComment: SCIENTOLOGY Total protein and [facility] albumin are decreased suggesting protein malnutrition. SPE interpretation See [facility] CommentComment: SCIENTOLOGY Blas Wiggins [facility] ; Gabino Bazan MD; Sharon Zhou, PhD; Home Gooden MD Specimen Serum Performing Organization Address [facility] Phone Number [facility] DEPARTMENT OF PATHOLOGY AND [address] [place] [address] Lactic acid level (08/09/2019 12:17 AM BLEACHER LARD) Pathologist Sig nature Lactic acid 0.8 0.5 - 2.2 mmol/L [facility] Specimen Blood Performing Organization Address City/[facility] Phone Number [facility] DEPARTMENT OF PATHOLOGY AND [address] [place], [place] [phone] Us carotid duplex (08/08/2019 9:20 PM BLEACHER LARD) Specimen Narrative Performed At [facility] Carotid A rtery Duplex Report [id number] [id number] For director of quality improvement purposes, the categorization of the degree of the stenosis of this exam is based on criteria described i n the IAC carotid stenosis grading white paper( www.intersocietal.org/Va scular) and Josias Christian., Sandeep Quach., et al. Carotid artery stenosis: morin-scale and Doppler US diagnosis-- Society of Radiologists in Ultrasound Consensus Conference. Radio logy. 2002; 229(2):340-6. Pat.Name: AURY MOULTON Pat.ID: [id number]Date: 08/08/2019 Refer.MD: NITA ORLANDO MD Exam Time: 8:33:00 PM Study Type:C arotid Age: 7 1940,79Y Sex: FEMALE Sonogrphr: Don Garcia, RVS, EJVON Pat. Stat.:[facility] ent Room: [place] [address] Tape Vol : EMMIE, CPT - 4: 58220 Echo Libby nt ID:[id number] Order ID: [id number] Reason for Study:Dizziness. History of C KD, PVD, DM, HTN, carotid artery disease, SOB. Procedures: Colorflow, Grayscale/2D, Pul sed wave Doppler Race: C SUMMARY: PHYSICAL ASSESSMENT Blood Pulses Carotid Pressure Carotid Temporal Br uit Right Leg 156/66 + + 0 Left IV + + 0 CAROTID ARTERY SCAN RIGHT: There is scattered hard and daniel cified plaque in the common carotid artery. There is scattered hard and calcified plaque noted in the bulb extending into the proximal int ernal and external carotid arteries. Disturbed color flow with no e levated velocities were noted in the proximal internal and external ca rotid arteries. There is antegrade flow noted in the vertebral ar isaura. There is hard plaque in the subclavian artery. LEFT: There is scattered hard and daniel cified plaque in the common carotid artery. There is scattered hard and calcified plaque noted in the bulb extending into the proximal int ernal and external carotid arteries. Disturbed color flow with elev ated velocity of 138 cm/sec is noted in the mid internal carotid artery . There is antegrade with high resistant flow noted in the vertebr al artery. PRELIMINARY FINDINGS 1. Non-stenotic plaque in the common car otid artery, bilaterally. 2. <50% stenosis in the bulb and int ernal carotid artery, bilaterally. 3. <50% stenosis in the external carotid artery, bilaterally. 4. There is antegrade flow noted in the vertebral artery. 5. Technically difficult study due to juan kelly's respiratory variations. PHYSICIAN INTERPRETATION Bilateral carotid duplex examination dem onstrated atherosclerotic plaques in the bulbs/ CCAs. Less than 50% stenosis in the bulb and i nternal carotid artery, bilaterally. Both vertebral arteries are antegrade. FINDINGS: Carotid Findings: Right Left Verteb.Flw Antegrade Antegrade Subclavian Biphasic Biphasic MEASUREMENTS: DOPPLER Right CCA Dist CCA Dist PSV 64.4 cm/s CCA Dist EDV 9.45 cm/s Right CCA Mid CCA Mid PSV 64.4 cm/s CCA Mid EDV 6.15 cm/s Right CCA Prox CCA Prox PSV 46 cm/s CCA Prox EDV 9.78 cm/s Right ECA Prox ECA Prox PSV 125 cm/s ECA Prox EDV 0 cm/s Right ICA Dist ICA Dist PSV 73.6 cm/s ICA Dist EDV 15.4 cm/s Right ICA Mid ICA Mid PSV 72.3 cm/s ICA Mid EDV 14.1 cm/s Right ICA Prox ICA Prox PSV 62 cm/s ICA Prox EDV 8.93 cm/s Right Vertebral Vertebral PSV 38.3 cm/s Vertebral EDV 10.4 cm/s Right Subclavian Subclavian PSV 147 cm/s Subclavian EDV 0 cm/s Left CCA Dist CCA Dist PSV 99.5 cm/s CCA Dist EDV 22 cm/s Left CCA Mid CCA Mid PSV 69.4 cm/s CCA Mid EDV 12.4 cm/s Left CCA Prox CCA Prox PSV 73.3 cm/s CCA Prox EDV 13.7 cm/s Left ECA Prox ECA Prox PSV 94.7 cm/s ECA Prox EDV 2.58 cm/s Left ICA Dist ICA Dist PSV 77 cm/s ICA Dist EDV 21.3 cm/s Left ICA Mid ICA Mid PSV 139 cm/s ICA Mid EDV 34.1 cm/s Left ICA Prox ICA Prox PSV 99.5 cm/s ICA Prox EDV 26.8 cm/s Left Vertebral Vertebral PSV 78.5 cm/s Vertebral EDV 0 cm/s Left Subclavian Subclavian PSV 152 cm/s Subclavian EDV 0 cm/s Right ICA/CCA Ratio ICA/CCA PSV 0.963 Left ICA/CCA Ratio ICA/CCA PSV 1.43 Signed 08/09/2019 12:28 AM Eduard Atkinson MD, RPVI Procedure Note Interface, Radiology Results In - 2019 12:28 AM [facility] Vascular Ultrasound Laboratory Carotid Artery Dupl ex Report [address] [place] [address] For director of quality improvement purposes, the rachel gorization of the degree of the stenosis of this exam is based on criteria described in the IAC carotid stenosis grading white paper( www.intersocietal.org/Vascular) and Zurdo Christian.Matthias., Main, C.B., et al. Carotid artery stenosis: morin-scale and Doppler US diagnosis--Society of Radiologists in Ultrasound Consensus Conference. Radiology. 2003 Nov; 229(2):340-6. Pat.Name: AURY MOULTON Pat.I D: [id number] St.Date: 08/08/2019 Refer .MD: NITA ORLANDO MD Exam Time: 8:33:00 PM Study Type:Carotid Age: 7 1940,79Y Sex: FEMALE Sonogrphr: ADALI Thakur RCS Pat. Stat.:Inpatient Room: [place] [address] Tape Vol: JM, CPT - 4: 13436 Echo Event ID:[id number] Order ID: [id number] Reason for Study:Dizziness. History of C KD, PVD, DM, HTN, carotid artery disease, SOB. Procedures: Colorflow, Grayscale/2D, Pul sed wave Doppler Race: C SUMMARY: PHYSICAL ASSESSMENT Blood Pulses Caroti d Pressure Carotid Temporal Bruit Right Leg 156/66 + + 0 Left IV + + 0 CAROTID ARTERY SCAN RIGHT: There is scattered hard and calc ified plaque in the common carotid artery. There is scattered hard and calcified plaque noted in the bulb extending into the proximal int ernal and external carotid arteries. Disturbed color flow with no e levated velocities were noted in the proximal internal and external ca rotid arteries. There is antegrade flow noted in the vertebral ar isaura. There is hard plaque in the subclavian artery. LEFT: There is scattered hard and calc ified plaque in the common carotid artery. There is scattered hard and calcified plaque noted in the bulb extending into the proximal int ernal and external carotid arteries. Disturbed color flow with elev ated velocity of 138 cm/sec is noted in the mid internal carotid artery . There is antegrade with high resistant flow noted in the vertebr al artery. PRELIMINARY FINDINGS 1. Non-stenotic plaque in the common car otid artery, bilaterally. 2. <50% stenosis in the bulb and inter nal carotid artery, bilaterally. 3. <50% stenosis in the external carotid artery, bilaterally. 4. There is antegrade flow noted in the vertebral artery. 5. Technically difficult study due to juan kelly's respiratory variations. PHYSICIAN INTERPRETATION Bilateral carotid duplex examination dem onstrated atherosclerotic plaques in the bulbs/ CCAs. Less than 50% stenosis in the bulb and i nternal carotid artery, bilaterally. Both vertebral arteries are antegrade. FINDINGS: Carotid Findings: Right Left Verteb.Flw Antegrade Antegrade Subclavian Biphasic Biphasic MEASUREMENTS: DOPPLER Right CCA Dist CCA Dist PSV 64.4 cm/s CCA Dist EDV 9.45 cm/s Right CCA Mid CCA Mid PSV 64.4 cm/s CCA Mid EDV 6.15 cm/s Right CCA Prox CCA Prox PSV 46 cm/s CCA Prox EDV 9.78 cm/s Right ECA Prox ECA Prox PSV 125 cm/s ECA Prox EDV 0 cm/s Right ICA Dist ICA Dist PSV 73.6 cm/s ICA Dist EDV 15.4 cm/s Right ICA Mid ICA Mid PSV 72.3 cm/s ICA Mid EDV 14.1 cm/s Right ICA Prox ICA Prox PSV 62 cm/s ICA Prox EDV 8.93 cm/s Right Vertebral Vertebral PSV 38.3 cm/s Vert ebral EDV 10.4 cm/s Right Subclavian Subclavian PSV 147 cm/s Subc lavian EDV 0 cm/s Left CCA Dist CCA Dist PSV 99.5 cm/s CCA Dist EDV 22 cm/s Left CCA Mid CCA Mid PSV 69.4 cm/s CCA Mid EDV 12.4 cm/s Left CCA Prox CCA Prox PSV 73.3 cm/s CCA Prox EDV 13.7 cm/s Left ECA Prox ECA Prox PSV 94.7 cm/s ECA Prox EDV 2.58 cm/s Left ICA Dist ICA Dist PSV 77 cm/s ICA Dist EDV 21.3 cm/s Left ICA Mid ICA Mid PSV 139 cm/s ICA Mid EDV 34.1 cm/s Left ICA Prox ICA Prox PSV 99.5 cm/s ICA Prox EDV 26.8 cm/s Left Vertebral Vertebral PSV 78.5 cm/s Vert ebral EDV 0 cm/s Left Subclavian Subclavian PSV 152 cm/s Subc lavian EDV 0 cm/s Right ICA/CCA Ratio ICA/CCA PSV 0.963 Left ICA/CCA Ratio ICA/CCA PSV 1.43 Signed 08/09/2019 12:28 AM Eduard Atkinson MD, RPVI Performing Organization Address [facility] Phone Number [facility] [address] [place] [address] US Renal (08/08/2019 3:35 PM [facility]) Specimen Narrative Performed At EXAMINATION: [facility] CLINICAL H[facility]: obstruction COMPARISON: No TECHNIQUE: Routine renal ultrasound obta ined. IMPRESSION: 1.Urinary bladder not visualized, collap sed. 2.Kidneys measure 9.9 x 4.3 x 4.3 cm in the right and 10.0 x 4.2 x 4.2 cm left. Cortical thickness and echogenicity are well- maintained. No evidence of hydronephrosis on either dianelys e. 3.A 1 cm cyst on the right kidney. No focal lesion on the left. No stones or hydronephrosis on either side. [facility]-[id number] Procedure Note Interface, Radiology Results Incoming - 08/08/2019 6:36 PM [facility] EXAMINATION: US RENAL CLINICAL HISTORY: obstruction COMPARISON: No TECHNIQUE: Routine renal ultrasound obta ined. IMPRESSION: 1.Urinary bladder not visualized, collap sed. 2.Kidneys measure 9.9 x 4.3 x 4.3 cm in the right and 10.0 x 4.2 x 4.2 cm left. Cortical thickness and echogenicity are well-maintained. No evidence of hydronephrosis on either side. 3.A 1 cm cyst on the right kidney. No fo daniel lesion on the left. No stones or hydronephrosis on either side. [facility]-[id number] Performing Organization Address [facility] Phone Number RADIANT [address] [place] [address] Urinalysis screen and microscopy, with reflex to culture (08/08/2019 1:43 PM [facility]) Specimen site Clean catch [facility] Color, UA Straw [facility] Appearance, UA Hazy [facility] Specific gravity, 1.006 1.001 - 1.035 [facility] pH, UA 5.0 5.0 - 8.5 [facility] Protein, UA 2+ (A) Negative [facility] Glucose, UA 3+ (A) Negative [facility] Ketones, UA Negative Negative [facility] Bilirubin, UA Negative Negative [facility] Blood, UA Moderate (A) Negative [facility] Nitrite, UA Negative Negative [facility] Urobilinogen, UA <2.0 <2.0 [facility] Leukocyte esterase, Negative Negative [facility] WBC, UA 10 (H) 0 - 4 /HPF [facility] RBC, UA 6 (H) 0 - 5 /HPF [facility] Bacteria, UA Few None seen [facility] Yeast, UA None seen [facility] Yeast with None seen [facility] pseudohyphae, [facility] Amorphous crystals Few [facility] Granular casts, UA 3 (H) 0 - 1 /LPF [facility] Specimen Urine Performing Organization Address City/[facility] Phone Number [facility] DEPARTMENT OF PATHOLOGY AND [address] [place] [address] [phone] [address] Urea nitrogen, urine, random (08/08/2019 1:43 PM [facility]) Pathologist Sig nature Urea nitrogen, urine, 184 mg/dL [facility] Specimen Urine Performing Organization Address City/[facility] Phone Number [facility] DEPARTMENT OF PATHOLOGY AND [address] [place] [address] [phone] [address] Sodium level, urine, random (08/08/2019 1:43 PM [facility]) Pathologist Sig nature Sodium, urine, random 109 mEq/L [facility] Specimen Urine Performing Organization Address City/[facility] Phone Number [facility] DEPARTMENT OF PATHOLOGY AND [address] [place] [address] [phone] [address] Protein, urine, random (08/08/2019 1:43 PM [facility]) Pathologist Sig nature Protein, urine random 153 mg/dL [facility] Specimen Urine Performing Organization Address City/[facility] Phone Number [facility] DEPARTMENT OF PATHOLOGY AND [address] [place] [address] [phone] [address] Creatinine level, urine, random (08/08/2019 1:43 PM [facility]) Pathologist Sig nature Creatinine, urine, 23 mg/dL [facility] Specimen Urine Performing Organization Address City/[facility]/Zipcode Phone Number [facility] DEPARTMENT OF PATHOLOGY AND [address] [place], [place] [phone] [address] Troponin (08/08/2019 4:04 AM [facility])Only the most recent of3 resultswithin the time period is included. Troponin 0.075 (H) 0.000 - 0.040 [facility] Comment: ng/mL HOSPITAL In patients suspected of having a myocardial infarctio n, along with all other appropriate clinical measures and actions includ ing ECG and other diagnostics as appropriate, measure Ultra TnI at 0 hrs and at 3 hrs. Myocardial infarction VERY LIKELY The 0 hr TnI level is > 0.10 ng/mL Myocardial infarction LIKELY The 0 hr TnI level is > 0.04 ng/mL and 3 hr level is i ncreased or decreased by at least 0.020 ng/mL Myocardial infarction VERY UNLIKELY Both the 0 hr and 3 hr TnI levels <= 0.04 ng/mL(within normal limits) OR 0 hr is > 0.04 ng/mL and 3 hr is increased OR decreased by less than 0.020 ng/mL Specimen Plasma specimen Performing Organization Address City/[facility]/Zipcode Phone Number [facility] DEPARTMENT OF PATHOLOGY AND [address] [place], [place] [phone] [facility] [address] [place] [address] Comprehensive metabolic panel (08/08/2019 2:24 AM [facility])Only the most recent of3 resultswithin the time period is included. Sodium 140 135 - 148 [facility] mEq/L [facility] Potassium 4.7 3.5 - 5.0 [facility] mEq/L [facility] Chloride 109 98 - 112 mEq/L [facility] CO2 16 (L) 24 - 31 mEq/L [facility] Anion gap 15@ANIO 7 - 15 mEq/L [facility] BUN 67 (H) 8 - 23 mg/dL [facility] Creatinine 4.80 (H) 0.50 - 0.90 [facility] mg/dL HOSPITAL Glucose 180 (H) 65 - 99 mg/dL [facility] Calcium 7.9 (L) 8.8 - 10.2 [facility] mg/dL [facility] Protein 6.0 (L) 6.3 - 8.3 g/dL [facility] Comment: HOSPITAL Mfkpxvd5577.6-7.0 g/dL 1 isfx0395.4-7.6 g/dL 7 months-7jhxb810.1-7.3 g/dL 1-2 .6-7.5 g/dL >3 .0-8.0 g/dL 18-0827298.3-8.3 g/dL Albumin 2.1 (L) 3.5 - 5.0 g/dL [facility] A/G ratio 0.5 (L) 0.7 - 3.8 [facility] Alkaline phosphatase 58 35 - 104 U/L [facility] AST 19 10 - 35 U/L [facility] ALT 12 5 - 50 U/L [facility] Total bilirubin <0.2 0.0 - 1.2 [facility] mg/dL [facility] Specimen Plasma specimen Performing Organization Address City/[facility]/Zipcode Phone Number [facility] DEPARTMENT OF PATHOLOGY AND [address] [place] [address] [phone] [address] Thyroid stimulating hormone (08/08/2019 1:40 AM [facility]) Pathologist Sig nature TSH 4.68 (H) 0.27 - 4.20 uIU/mL [facility] Specimen Plasma specimen Performing Organization Address City/[facility] Phone Number [facility] DEPARTMENT OF PATHOLOGY AND [address] [place] [address] [phone] [address] T4, free (08/08/2019 1:40 AM [facility]) Pathologist Sig nature T4, free 1.3 0.9 - 1.7 ng/dL [facility] L Specimen Plasma specimen Performing Organization Address City/[facility]/Zipcode Phone Number [facility] DEPARTMENT OF PATHOLOGY AND [address] [place] [address] [phone] [address] Hemoglobin A1c (08/08/2019 1:40 AM [facility]) Hemoglobin A1C 8.3 (H) 4.0 - 5.6 % [facility] Comment: HOSPITAL HbA1c cutoffs for diagnosing diabetes: 4.0% - 5.6% = normal 5.7% - 6.4% = increased risk for diabetes (prediabetes )9 >=6.5% = diabetes9 Goals for glycemic control (ADA 2016) < 7.0% Target for non adults with diabetes. More or less stringent targets may be appropriate for individual patients. <7.5% Target for Children and adolescents with type 1 diabetes. Specimen Blood Performing Organization Address City/[facility]/Zipcode Phone Number [facility] DEPARTMENT OF PATHOLOGY AND [address] [place] [address] [phone] [address] Lipid panel (08/08/2019 1:40 AM [facility]) Cholesterol 259 (H) <200 mg/dL [facility] Triglycerides 179 (H) <150 mg/dL [facility] HDL cholesterol 48 >40 mg/dL [facility] LDL cholesterol 188 (H)Comment: <100 mg/dL [facility] Result obtained by SCIENTOLOGY direct [facility] measurement [facility] Comment: SCIENTOLOGY Total Cholesterol (mg/dL) HOSPIT AL <200 Desirable 200-239 Borderline-high >=240 High Triglycerides (mg/dL) <150 Normal 150-199 Borderline-high 200-499 High >=500 Very high HDL Cholesterol (mg/dL) <40 Low (male) <40 Low (female) LDL Cholesterol (mg/dL) <100 Optimal 100-129 Near or above optimal 130-159 Borderline-high 160-189 High >=190 Very high Risk Catergories that modify LDL goals. Risk Catergories LDL goal (mg/d L) CHD and CHD risk equivalent <100 (10-year risk >20%) Multiple (2+) risk factors <130 (10-year risk =<20%) 0-1 risk factors <160 (<10-year risk) Defining levels of lipids in metabolic syndrome Triglycerides >=150 mg/dL HDL Cholesterol Men <40 mg /dL Women <40 mg/ dL Non-HDL cholesterol is a second target for therapy in persons with high triglycerides (>=200 mg/dL) Specimen Plasma specimen Performing Organization Address [facility] Phone Number [facility] DEPARTMENT OF PATHOLOGY AND [address] [place] [address] [phone] [address] CRITICAL CARE (08/07/2019 8:33 PM [facility]) Narrative Performed At Gabino Feliz MD 0 1:39 PM Critical Care Performed by: Gabino Feliz MD Authorized by: Gabino Feliz MD Critical care provider statement: Critical care time (minutes): 35 Critical care time was exclusive of: Separately b illable procedures and treating other patients Critical care was necessary to treat or prevent imminent or life-threatening deterioration of the following condit ions: Respiratory failure and cardiac failure Critical care was time spent personal ly by me on the following activities: Development of treatment p krupa with patient or surrogate, discussions with consultants, discussion s with primary provider, evaluation of patient's response to kendall tment, examination of patient, interpretation of cardiac output measure ments, obtaining history from patient or surrogate, ordering and perfo rming treatments and interventions, ordering and review of la boratory studies, ordering and review of radiographic studies, pulse oximetry, re-savannah luation of patient's condition and review of old charts Lipase level (08/07/2019 6:42 PM [facility]) Pathologist Roc max Lipase 87 (H) 13 - 60 U/L [facility] Specimen Plasma specimen Performing Organization Address City/[facility] Phone Number [facility] DEPARTMENT OF PATHOLOGY AND [address] [place] [address] [phone] [address] Amylase level (08/07/2019 6:42 PM [facility]) Pathologist Sig nature Amylase 100 28 - 100 U/L [facility] Specimen Plasma specimen Performing Organization Address City/State/Zipcode Phone Number [facility] DEPARTMENT OF PATHOLOGY AND [address] [place] [phone] GENOMIC MEDICINE [facility] [address] [place] [address] Echocardiogram complete w contrast and 3D if needed (08/07/2019 12:45 AM [facility]) Specimen Narrative Performed At [facility]UP[facility] Echo cardiography Report [address] [facility], [address], [place] [address] Pat.Name: AURY MOULTON Pat.ID: [id number]Date: 08/08/2019 Refer.MD: NITA ORLANDO MD Exam Time: 12:19:00 AM Study Type:Ro utine Echo Height: 58in Weight: 106lb BSA: 1.39 m2 Ag e: 1940,79Y Sex: FEMALE BP: 168/77 HR: 70 bpm Sonogr phr: Delmy Warner, RCS, RVT Pat. Stat.:Inpatient Room: ED-20 CPT - 4: 75004, 29589, 83696 Study Status:[facility] Echo Event ID:[id number] Order ID: [id number] Reason for Study:SOB Procedures: 2D Echo, 2D Echo, Colorflow Doppler, Portable Race: C SUMMARY: LV size is jcow-jy-khrzvtlbyy enlarged. LV EF is moderately to severely depressed. Regional wall motion abnormalities prese nt. Estimated EF is 30-34%. Pleural effusion is present. LV filling pressure is borderline elevat ed. Estimated PA systolic pressure is 33-38 mmHg, assuming a mean RAP of 0-5 mmHg. FINDINGS: LV: LV size is lnwn-jp-kduaozuz ly enlarged. LV EF is moderately to severely depressed. Estimated EF is 30-34%. Regional wall motion abnormalities present. Mid Anterior, Mid Anteroseptal, Apical Anterior, Apical Septal, Apical w alls are akinetic. Apical Inferior, Apical Lateral abel are hypok inetic. Normal wall motion in all other abel. RV: RV size is normal. RV systo lic function is normal. LA: LA volume is moderately enl arged. RA: RA size is normal. AO: Aortic root diameter is nor mal. GODWIN: No pericardial effusion. PLE: Pleural effusion is present . SVn: Normal collapse of IVC during inspiration is consistent with normal RA pressure. AV: No structural AV abnormalit ies noted. MV: Mild thickening and calcifi cation of mitral leaflets. Mild mitral regurgitation. PV: Pulmonic valve not well see n. TV: No structural TV abnormalit ies noted. A trace of tricuspid regurgitation Workman: LV relaxation is impaired. L V filling pressure is borderline elevated. Other: Estimated PA systolic pressu re is 33-38 mmHg, assuming a mean RAP of 0-5 mmHg. MEASUREMENTS: 2D [address] Ao An 1.7 cm LVPWd 0.67 cm Ao Rtd 2.6 cm Index 1.9 cm/m2 LA Ds 3.6 cm IVSd 0.73 cm RWT 0.3 LVIDd 4.4 cm Index 3.2 cm/m2 LV Mass 92 g (87-12 9) LVIDs 3.5 cm LVM In dex 66 g/m LV%fs 20 % LA Sng Plane LA Area 18 cm (8.8-23.4) LA Vol 50 ml Index 36 ml/m2 LA LngAx 5.3 cm LVOT Stroke Vol LVOT 1.7 cm LVOT LVOT Area 2.3 cm DOPPLER LVOT Stroke Vol LVOT TVI 17 cm LVOT CI 2.1 l/m/m LVOT SV 39 ml HR 73 bpm LVOT CO 2.9 l/min LVOT SVi 28 ml/m MV E/A Ratio MV pkE 79 cm/s (60-130) MV E/A 0.75 MV pkA 105 cm/s TV Pressure Gradient TV PkVel 287 cm/s TV PG 33 mmHg WALL MOTION: RESTING WALL MOTION: Mid Anterior, Mid Anteroseptal, Apical A nterior, Apical Septal, Apical abel are akinetic. Apical Inferior, A pical Lateral abel are hypokinetic. Normal wall motion in al l other abel. Wall Index = 1.7 Signed 08/08/2019 10:43 PM Dilan Mcpherson M.D. Procedure Note Interface, Radiology Results In - 2019 10:43 PM [facility] Echocardiography Report [address] [place] [address] Pat.Name: AURY MOULTON Pat.I D: [id number] St.Date: 08/08/2019 Refer .MD: NITA ORLANDO MD Exam Time: 12:19:00 AM Study Type:Routine Echo Height: 58in Weigh t: 106lb BSA: 1.39 m2 Age: 7 1940,79Y Sex: FEMALE BP: 168/77 HR: 70 bpm Sonog rphr: Delmy Warner, RCS, RVT Pat. Stat.:Inpatient Room: ED-20 CPT - 4: 25928, 06216, [address] Study Status:Final Echo Event ID:[id number] Order ID: [id number] Reason for Study:SOB Procedures: 2D Echo, 2D Echo, Colorflow Doppler, Portable Race: C SUMMARY: LV size is jqzw-sh-munrgxbwew enlarged. LV EF is moderately to severely depressed. Regional wall motion abnormalities prese nt. Estimated EF is 30-34%. Pleural effusion is present. LV filling pressure is borderline elevat ed. Estimated PA systolic pressure is 33-38 mmHg, assuming a mean RAP of 0-5 mmHg. FINDINGS: LV: LV size is ykcf-dq-vqrklvqejv enlarged. LV EF is moderately to severely depressed. Estima ida EF is 30-34%. Regional wall motion abnormalities present. Mid Anterior, Mid Anteroseptal, Apical Anterior, Apical Septal, Apical w alls are akinetic. Apical Inferior, Apical Lateral abel are hypok inetic. Normal wall motion in all other abel. RV: RV size is normal. RV systolic function is normal. LA: LA volume is moderately enlarg ed. RA: RA size is normal. AO: Aortic root diameter is normal . GODWIN: No pericardial effusion. PLE: Pleural effusion is present. SVn: Normal collapse of IVC during inspiration is consistent with normal RA pressure. AV: No structural AV abnormalities noted. MV: Mild thickening and calcificat ion of mitral leaflets. Mild mitral regurgitation. PV: Pulmonic valve not well seen. TV: No structural TV abnormalities noted. A trace of tricuspid regurgitation Workman: LV relaxation is impaired. LV filling pressure is borderline elevated. Other: Estimated PA systolic pressure is 33-38 mmHg, assuming a mean RAP of 0-5 mmHg. MEASUREMENTS: 2D [address] Ao An 1.7 cm LVPW d 0.67 cm Ao Rtd 2.6 cm Inde x 1.9 cm/m2 LA Ds 3.6 cm IVSd 0.73 cm RWT 0.3 LVIDd 4.4 cm Inde x 3.2 cm/m2 LV Mass 92 g (87-129) LVIDs 3.5 cm LVM Index 66 g/m LV%fs 20 % LA Sng Plane LA Area 18 cm (8.8-23.4) L A Vol 50 ml Index 36 ml/m2 LA LngAx 5.3 cm LVOT Stroke Vol LVOT 1.7 cm LVOT LVOT Area 2.3 cm DOPPLER LVOT Stroke Vol LVOT TVI 17 cm LVOT CI 2.1 l/m/m LVOT SV 39 ml HR 73 bpm LVOT CO 2.9 l/min LVOT SVi 28 ml/m MV E/A Ratio MV pkE 79 cm/s (60-130) MV E /A 0.75 MV pkA 105 cm/s TV Pressure Gradient TV PkVel 287 cm/s TV P G 33 mmHg WALL MOTION: RESTING WALL MOTION: Mid Anterior, Mid Anteroseptal, Apical A nterior, Apical Septal, Apical abel are akinetic. Apical Inferior, Ap ical Lateral abel are hypokinetic. Normal wall motion in all other abel. Wall Index = 1.7 Signed 08/08/2019 10:43 PM Dilan Mcpherson M.D. Performing Organization Address City/State/Zipcode Phone Number [facility] [address] [place] [address] Pv physiologic arterial lower extremity complete w ramon (04/11/2019 10:30 AM CDT) Specimen Narrative Performed At [facility] Lower Extremity Art erial Physiologic Report [address] [place] [address] Pat.Name: AURY MOULTON Pat.ID: [id number] .Date: 04/11/2019 Refer.: NEMESIO FRIEDMAN MD Exam Time: 9:59:00 AM Study Type:P hysiologic Leg Age: 7 1940,79Y Sex: FEMALE Sonogrphr: Melissa Espinoza, RN, RVT, Deonna Pritchard, RVT [facility] - 4: [address] Echo Event ID:[id number] Order ID: [id number] Reason for Study:Follow up post angiopla sty bilaterally. Diabetic. Race: C SUMMARY: DOPPLER WAVEFORMS: DOPPLER WAVEFORMS ARTERY RIGHT LEFT Common Femoral Multiphasic Multiphasic Superficial Femoral Monophasic Multiphas ic Popliteal Monophasic Multiphasic Posterior Tibial Monophasic Monophasic Dorsalis Pedis Monophasic Monophasic PRELIMINARY FINDINGS: 1. Doppler waveforms are abnormal thro ughout the leg, bilaterally suggesting ileo-femoral artery disease. 2. Resting RAMON's fall within the mild range of obstructive disease on the right and moderate range on the left . Pressures may be artificially elevated due to calcified a rteries. 3. TBI's fall into the mild range of d isease bilaterally. 4. In comparison to study done 8, TBI's are unchanged. PHYSICIAN INTERPRETATION: 1. Resting RAMON's fall within the mild range of obstructive disease on the right and moderate range on the left . Pressures may be artificially elevated due to calcified a rteries. 2. TBI's fall into the mild range of d isease bilaterally. 3. More proximal iliac artery disease ma y be present, bilaterally. 4. Elevated velocities may suggest arter ial wall calcifications. FINDINGS: MEASUREMENTS: PRESSURES Right Brachial Brach P 253 mmHg Left Brachial Brach P 231 mmHg Right Low Thigh LowThigh P 252 mmHg Left Low Thigh LowThigh P 195 mmHg Right Calf CalfP 252 mmHg Left Calf CalfP 170 mmHg Right Ankle PT AnklePT P 208 mmHg Left Ankle PT AnklePT P 138 mmHg Right Ankle DP AnkleDP P 206 mmHg Left Ankle DP AnkleDP P 132 mmHg Right Great Toe GreatToe P 116 mmHg Left Great Toe GreatToe P 104 mmHg RAMON PT RAMON PT 0.82 RAMON PT 0.55 RAMON DP RAMON DP 0.81 RAMON DP 0.52 Right TBI TBI 0.46 Left TBI TBI 0.41 Signed 04/26/2019 05:44 PM Tony Dyson MD, FACS, RPVI Procedure Note Interface, Radiology Results In - 2018 5:44 PM [facility] Lower Extremity Arterial P hysiologic Report [address] [place] [id number] Pat.Name: AURY MOULTON Pat.I D: [id number] St.Date: 04/11/2019 Refer .MD: NEMESIO FRIEDMAN MD Exam Time: 9:59:00 AM Study Type:Physiologic Leg Age: 7 1940,79Y Sex: FEMALE Sonogrphr: Melissa Espinoza RN, RVT, Deonna Pritchard RVT CPT - 4: 48461 Echo Event ID:[id number] Order ID: [id number] Reason for Study:Follow up post angiopla sty bilaterally. Diabetic. Race: C SUMMARY: DOPPLER WAVEFORMS: DOPPLER WAVEFORMS ARTERY RIGHT LEFT Common Femoral Multiphasic Multiphasic Superficial Femoral Monophasic Multiphas ic Popliteal Monophasic Multiphasic Posterior Tibial Monophasic Monophasic Dorsalis Pedis Monophasic Monophasic PRELIMINARY FINDINGS: 1. Doppler waveforms are abnormal throu ghout the leg, bilaterally suggesting ileo-femoral artery disease. 2. Resting RAMON's fall within the mild r michael of obstructive disease on the right and moderate range on the left . Pressures may be artificially elevated due to calcified a rteries. 3. TBI's fall into the mild range of di sease bilaterally. 4. In comparison to study done 04/19/18 , TBI's are unchanged. PHYSICIAN INTERPRETATION: 1. Resting RAMON's fall within the mild r michael of obstructive disease on the right and moderate range on the left . Pressures may be artificially elevated due to calcified a rteries. 2. TBI's fall into the mild range of di sease bilaterally. 3. More proximal iliac artery disease ma y be present, bilaterally. 4. Elevated velocities may suggest arter ial wall calcifications. FINDINGS: MEASUREMENTS: PRESSURES Right Brachial Brach P 253 mmHg Left Brachial Brach P 231 mmHg Right Low Thigh LowThigh P 252 mmHg Left Low Thigh LowThigh P 195 mmHg Right Calf CalfP 252 mmHg Left Calf CalfP 170 mmHg Right Ankle PT AnklePT P 208 mmHg Left Ankle PT AnklePT P 138 mmHg Right Ankle DP AnkleDP P 206 mmHg Left Ankle DP AnkleDP P 132 mmHg Right Great Toe GreatToe P 116 mmHg Left Great Toe GreatToe P 104 mmHg RAMON PT RAMON PT 0.82 RAMON PT 0.55 RAMON DP RAMON DP 0.81 RAMON DP 0.52 Right TBI TBI 0.46 Left TBI TBI 0.41 Signed 04/26/2019 05:44 PM Tony Dyson MD, FACS, RPVI Performing Organization Address City/State/Zipcode Phone Number [facility] [id number] [place] [address] after 10/30/2018 Insurance Payer Benefit Plan / Subscriber ID Effective Dates Phone Addre ss Type Group HU[employer]NA MEDICARE HU[employer]NA HMO GOLD xxxxxxxxx 2019-Present HMO PLUS MEDICARE Advance Directives For more information, please contact: [phone] Type Date Recorded 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
--- OUTSIDE RECORDS SUMMARY | 2019-10-31 11:20 | XMS REPORT | Clinical Summary ---
:1940 Author Organization [facility] Address [address] [place] [address] Care Team Providers Name Role Phone Pcp Primary Care Provider Unavailable Allergies Active Allergy Reactions Severity Noted Date Comments Codeine Other (See Comments) Medium 12/02/2014 Tramadol Other (See Comments) 06/24/2016 Medications Medication Sig Dispensed Refills Start End Date Status Date amLODIPine Take 5 mg by mouth 0 Active (NORVASC) 5 MG daily . tabletIndications: hold foe SBP < 110, DBP < 60 or HR <60 aspirin 81 MG EC Take 81 mg by 0 Active tablet mouth daily. atorvastatin Take 20 mg by 0 Act siddharth (LIPITOR) 20 MG mouth daily. tablet carvediloL (COREG) Take 12.5 mg by 0 Active 12.5 MG mouth 2 (two) tabletIndications: times daily with hypertension breakfast and dinner Hold foe SBP < 110 or HR < 60 . docusate sodium Take 100 mg by 0 Active (COLACE) 100 MG mouth 2 (two) capsuleIndications: times daily. constipation polyethylene glycol Take 17 g by mouth 0 Active (GLYCOLAX) 17 gram every 3 (three) packetIndications: days. constipation hydrALAZINE Take 25 mg by 0 Acti ve (APRESOLINE) 25 MG mouth 3 (three) tabletIndications: times daily. hypertension, hold for SBP < 110 or HR < 60 levothyroxine Take 50 mcg by 0 A ctive (SYNTHROID, mouth Every LEVOTHROID) 50 MCG morning on an tablet empty stomach. insulin aspart Inject 0 Activ e U-100 (NOVOLOG) 100 subcutaneously 3 unit/mL (3 mL) (three) times InPnIndications: daily before type 2 diabetes meals. mellitus, 200 -250 = 2 units, 251-300= 4 units, 301- 305 = 6 units; 351-400=8 units PENTOXIFYLLINE Take 400 mg by 0 Active ORALIndications: mouth 2 (two) peripheral vascular times daily. disease, Pentoxifylline ER tablet extended pantoprazole Take 40 mg by 0 Act siddharth (PROTONIX) 40 MG mouth daily. tablet acetaminophen Take 650 mg by 0 A ctive (TYLENOL) 325 MG mouth every 4 tablet (four) hours as needed for Pain. LORazepam (ATIVAN) Take 0.5 mg by 0 Discontinued 0.5 MG tablet mouth every 8 0 20 (eight) hours as needed for Anxiety. insulin glargine Inject 5 Units 0 10/03/19 Discontinued (LANTUS) 100 subcutaneously 2 20 unit/mL injection (two) times daily Use as directed . hydrocortisone Place 25 mg 0 10/03/19 Exp ired (ANUSOL-HC) 25 mg rectally 2 (two) 0 20 suppositoryIndicati times daily. ons: hemorrhoids Active Problems Problem Noted Date Gastrointestinal hemorrhage with melena 09/25/2019 GIB (gastrointestinal bleeding) 09/25/2019 ESRD (end stage renal disease) on dialysis Encounters Date Type Specialty Care Team Description 09/27/2019 Anesthesia Event Gastroenterology Elizabeth Vidal CRNA 09/27/2019 Surgery Gastroenterology Dai LevineOSC ISELA Fry MD 09/26/2019 Travel 09/25/2019 [facility] General Internal [facility] Gastrointes tinal hemorrhage with melena; - Encounter Medicine MD Marc ESRD on hemodialysis ([facility]); 10/03/2019 [place], Essential hyper tension; Belle Anemia due to c hronic kidney disease, on chronic dialysis ([facility]); [place], Hypokalemia; 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 ([facility]); , Malnutrition, u nspecified type ([facility]); MD Giles Closed fracture of hip, unspecified late rality, initial encounter ([facility]); Jacinto, Hypertension, u nspecified type; Ciara Asha, Anemia, unspec ified type; ESRD (end stage renal disease) on dialysis ([facility]); Gastrointestina l hemorrhage, unspecified gastrointestinal hemorrhage type 09/25/2019 Telephone Gastroenterology aDi Levine MD after 10/30/2018 Social History Tobacco Use Types Packs/Day Years Used Date Never Assessed Sex Assigned at Date Recorded Not on file Job Start Date Occupation Industry Not on file Not on file Not on file Travel History Travel Start Travel End No recent travel history available. Last Filed Vital Signs Vital Sign Reading Time Taken Blood Pressure 155/68 10/03/2019 2:42 PM CDT Pulse 66 10/03/2019 4:21 PM CDT Temperature 36.8 C (98.3 F) 10/03/2019 2:42 PM CDT Respiratory Rate 16 10/03/2019 4:21 PM CDT Oxygen Saturation 92% 10/03/2019 4:21 PM CDT Inhaled Oxygen Concentration 21% 10/01/2019 8:22 PM CDT Weight 41.9 kg (92 lb 6 oz) 10/03/2019 11:15 AM CDT Height 149.9 cm (4' 11") 09/27/2019 9:00 AM CDT Body Mass Index 18.66 10/03/2019 11:15 AM CDT Plan of Treatment Not on file Procedures Procedure Name Priority Date/Time Associated Diagnosis Comme nts TRANSFUSION SERVICE 10/04/2019 5:51 REPORT - SCAN PM CDT REPORT OF PROCEDURE - 10/04/2019 12:40 ENDOSCOPY SCAN PM CDT RHYTHM STRIP - SCAN 10/04/2019 12:40 PM CDT PREPARE LEUKO-REDUCED Routine 10/03/2019 11:54 Re sults for this RBC PM CDT procedure are i n the results section. TRANSFUSION SERVICE 10/03/2019 5:51 REPORT - SCAN PM CDT POCT-GLUCOSE METER Routine 10/03/2019 4:47 Resul ts for this PM CDT procedure are i n the results section. POCT-GLUCOSE METER Routine 10/03/2019 11:32 Resul ts for this AM CDT procedure are i n the results section. POCT-GLUCOSE METER Routine 10/03/2019 10:56 Resul ts for this AM CDT procedure are i n the results section. POCT-GLUCOSE METER Routine 10/03/2019 8:10 Resul ts for this AM CDT procedure are i n the results section. POCT-GLUCOSE METER Routine 10/03/2019 7:39 Resul ts for this AM CDT procedure are i n the results section. CBC W/PLT COUNT & Routine 10/03/2019 6:01 Result s for this AUTO DIFFERENTIAL AM CDT procedure are in the results section. BASIC METABOLIC PANEL Routine 10/03/2019 6:01 Re sults for this (7) AM CDT procedure are i n the results section. CBC W/PLT COUNT & Routine 10/03/2019 6:01 Result s for this AUTO DIFFERENTIAL AM CDT procedure are in the results section. TRANSFUSE Routine 10/03/2019 1:35 LEUKO-REDUCED RED AM CDT BLOOD CELLS POCT-GLUCOSE METER Routine 10/02/2019 9:13 Resul ts for this PM CDT procedure are i n the results section. TYPE AND SCREEN, Routine 10/02/2019 6:44 Results for this AUTOMATED PM CDT procedure are i n the results section. POCT-GLUCOSE METER Routine 10/02/2019 5:19 Resul ts for this PM CDT procedure are i n the results section. CBC W/PLT COUNT & Routine 10/02/2019 5:12 Result s for this AUTO DIFFERENTIAL PM CDT procedure are in the results section. BASIC METABOLIC PANEL Routine 10/02/2019 5:12 Re sults for this (7) PM CDT procedure are i n the results section. CBC W/PLT COUNT & Routine 10/02/2019 5:12 Result s for this AUTO DIFFERENTIAL PM CDT procedure are in the results section. POCT-GLUCOSE METER Routine 10/02/2019 11:02 Resul ts for this AM CDT procedure are i n the results section. POCT-GLUCOSE METER Routine 10/02/2019 7:52 Resul ts for this AM CDT procedure are i n the results section. POCT-GLUCOSE METER Routine 10/01/2019 9:26 Resul ts for this PM CDT procedure are i n the results section. POCT-GLUCOSE METER Routine 10/01/2019 4:30 Resul ts for this PM CDT procedure are i n the results section. POCT-GLUCOSE METER Routine 10/01/2019 12:09 Resul ts for this PM CDT procedure are i n the results section. POCT-GLUCOSE METER Routine 10/01/2019 8:25 Resul ts for this AM CDT procedure are i n the results section. HEMODIALYSIS Routine 10/01/2019 8:14 INPATIENT AM CDT POCT-GLUCOSE METER Routine 10/01/2019 7:05 Resul ts for this AM CDT procedure are i n the results section. POCT-GLUCOSE METER Routine 09/30/2019 8:45 Resul ts for this PM CDT procedure are i n the results section. POCT-GLUCOSE METER Routine 09/30/2019 3:37 Resul ts for this PM CDT procedure are i n the results section. POCT-GLUCOSE METER Routine 09/30/2019 11:50 Resul ts for this AM CDT procedure are i n the results section. POCT-GLUCOSE METER Routine 09/30/2019 7:21 Resul ts for this AM CDT procedure are i n the results section. CBC W/PLT COUNT & Routine 09/30/2019 4:10 Result s for this AUTO DIFFERENTIAL AM CDT procedure are in the results section. CBC W/PLT COUNT & Routine 09/30/2019 4:10 Result s for this AUTO DIFFERENTIAL AM CDT procedure are in the results section. BASIC METABOLIC PANEL Routine 09/30/2019 4:10 Re sults for this (7) AM CDT procedure are i n the results section. POCT-GLUCOSE METER Routine 09/29/2019 8:06 Resul ts for this PM CDT procedure are i n the results section. HEMOGLOBIN AND STAT 09/29/2019 6:11 Results f or this HEMATOCRIT PM CDT procedure are i n the results section. POCT-GLUCOSE METER Routine 09/29/2019 4:43 Resul ts for this PM CDT procedure are i n the results section. POCT-GLUCOSE METER Routine 09/29/2019 11:49 Resul ts for this AM CDT procedure are i n the results section. POCT-GLUCOSE METER Routine 09/29/2019 7:59 Resul ts for this AM CDT procedure are i n the results section. POCT-GLUCOSE METER Routine 09/28/2019 8:18 Resul ts for this PM CDT procedure are i n the results section. TRANSFUSION SERVICE 09/28/2019 5:52 REPORT - SCAN PM CDT POCT-GLUCOSE METER Routine 09/28/2019 4:56 Resul ts for this PM CDT procedure are i n the results section. POCT-GLUCOSE METER Routine 09/28/2019 11:22 Resul ts for this AM CDT procedure are i n the results section. HEMODIALYSIS Routine 09/28/2019 10:18 INPATIENT AM CDT HEMODIALYSIS Routine 09/28/2019 8:20 INPATIENT AM CDT CBC W/PLT COUNT & Routine 09/28/2019 4:10 Result s for this AUTO DIFFERENTIAL AM CDT procedure are in the results section. CBC W/PLT COUNT & Routine 09/28/2019 4:10 Result s for this AUTO DIFFERENTIAL AM CDT procedure are in the results section. PROTHROMBIN TIME/INR Routine 09/28/2019 4:10 Res ults for this AM CDT procedure are i n the results section. HEPATIC FUNCTION Routine 09/28/2019 4:10 Results for this PANEL AM CDT procedure are i n the results section. BASIC METABOLIC PANEL Routine 09/28/2019 4:10 Re sults for this (7) AM CDT procedure are i n the results section. PREPARE LEUKO-REDUCED Routine 09/27/2019 11:54 Re sults for this RBC PM CDT procedure are i n the results section. POCT-GLUCOSE METER Routine 09/27/2019 9:43 Resul ts for this PM CDT procedure are i n the results section. ECHOCARDIOGRAM REPORT 09/27/2019 9:10 - SCAN PM CDT TRANSFUSION SERVICE 09/27/2019 5:52 REPORT - SCAN PM CDT POCT-GLUCOSE METER Routine 09/27/2019 5:28 Resul ts for this PM CDT procedure are i n the results section. REPORT OF PROCEDURE - 09/27/2019 2:41 ENDOSCOPY URL PM CDT SIGMOIDOSCOPY 09/27/2019 12:30 Gastrointestinal PM CDT hemorrhage, unspecified gastrointestinal hemorrhage type POCT-GLUCOSE METER Routine 09/27/2019 12:29 Resul ts for this PM CDT procedure are i n the results section. 2D ECHO W/ DOPPLER Routine 09/27/2019 9:11 Resul ts for this (CW/PW/COLOR) AM CDT procedure are in the results section. POCT-GLUCOSE METER Routine 09/27/2019 8:02 Resul ts for this AM CDT procedure are i n the results section. CBC W/PLT COUNT & Routine 09/27/2019 4:26 Result s for this AUTO DIFFERENTIAL AM CDT procedure are in the results section. PHOSPHORUS Routine 09/27/2019 4:26 Results for this AM CDT procedure are i n the results section. CBC W/PLT COUNT & Routine 09/27/2019 4:26 Result s for this AUTO DIFFERENTIAL AM CDT procedure are in the results section. PROTHROMBIN TIME/INR Routine 09/27/2019 4:26 Res ults for this AM CDT procedure are i n the results section. HEPATIC FUNCTION Routine 09/27/2019 4:26 Results for this PANEL AM CDT procedure are i n the results section. BASIC METABOLIC PANEL Routine 09/27/2019 4:26 Re sults for this (7) AM CDT procedure are i n the results section. POCT-GLUCOSE METER Routine 09/26/2019 8:57 Resul ts for this PM CDT procedure are i n the results section. POCT-GLUCOSE METER Routine 09/26/2019 4:58 Resul ts for this PM CDT procedure are i n the results section. POCT-GLUCOSE METER Routine 09/26/2019 11:38 Resul ts for this AM CDT procedure are i n the results section. CBC W/PLT COUNT & STAT 09/26/2019 8:52 Result s for this AUTO DIFFERENTIAL AM CDT procedure are in the results section. CBC W/PLT COUNT & STAT 09/26/2019 8:52 Result s for this AUTO DIFFERENTIAL AM CDT procedure are in the results section. HEPATITIS B SURFACE Routine 09/26/2019 8:52 Resu lts for this ANTIGEN AM CDT procedure are i n the results section. MAGNESIUM Routine 09/26/2019 8:52 Results for this AM CDT procedure are i n the results section. POCT-GLUCOSE METER Routine 09/26/2019 7:44 Resul ts for this AM CDT procedure are i n the results section. TRANSFUSE Routine 09/26/2019 6:25 LEUKO-REDUCED RED AM CDT BLOOD CELLS XR HIP 2 VIEWS LEFT Routine 09/26/2019 4:45 Resu lts for this AM CDT procedure are i n the results section. VITAMIN B12 AND Routine 09/26/2019 4:09 Results for this FOLATE AM CDT procedure are i n the results section. IRON, TIBC, % SAT. Routine 09/26/2019 4:09 Resul ts for this (WITHOUT FERRITIN) AM CDT procedure are in the results section. FERRITIN Routine 09/26/2019 4:09 Results for this AM CDT procedure are i n the results section. CBC W/PLT COUNT & Routine 09/26/2019 2:07 Result s for this AUTO DIFFERENTIAL AM CDT procedure are in the results section. ABORH, MANUAL STAT 09/26/2019 2:07 Results fo r this AM CDT procedure are i n the results section. CBC W/PLT COUNT & Routine 09/26/2019 2:07 Result s for this AUTO DIFFERENTIAL AM CDT procedure are in the results section. PROTHROMBIN TIME/INR Routine 09/26/2019 2:07 Res ults for this AM CDT procedure are i n the results section. HEPATIC FUNCTION Routine 09/26/2019 2:07 Results for this PANEL AM CDT procedure are i n the results section. BASIC METABOLIC PANEL Routine 09/26/2019 2:07 Re sults for this (7) AM CDT procedure are i n the results section. BLOOD CULTURE Routine 09/26/2019 2:07 Results fo r this AM CDT procedure are i n the results section. TYPE AND SCREEN, STAT 09/26/2019 1:33 Results for this AUTOMATED AM CDT procedure are i n the results section. HEMOGLOBIN A1C Routine 09/26/2019 1:33 Results f or this AM CDT procedure are i n the results section. CBC W/PLT COUNT & STAT 09/25/2019 10:27 Result s for this AUTO DIFFERENTIAL PM CDT procedure are in the results section. CBC W/PLT COUNT & STAT 09/25/2019 10:27 Result s for this AUTO DIFFERENTIAL PM CDT procedure are in the results section. PROTHROMBIN TIME/INR STAT 09/25/2019 10:27 Res ults for this PM CDT procedure are i n the results section. COMPREHENSIVE STAT 09/25/2019 10:27 Results fo r this METABOLIC PANEL PM CDT procedure ar e in the results section. POCT-GLUCOSE METER Routine 09/25/2019 8:24 Resul ts for this PM CDT procedure are i n the results section. after 10/30/2018 Results TRANSFUSION SERVICE REPORT - SCAN (10/04/2019 5:51 PM CDT)Only the most recent of4 resultswithin the time period is included. Narrative Performed At This result has an attachment that is no t available. EKG-SCANNED (10/04/2019 12:40 PM CDT) Narrative Performed At This result has an attachment that is no t available. RHYTHM STRIP - SCAN (10/04/2019 12:40 PM CDT) Narrative Performed At This result has an attachment that is no t available. Prepare Leuko-Red RBC (10/03/2019 11:54 PM CDT)Only the most recent of2 results within the time period is included. CROSSMATCH COMPATIBLE [facility] Unit ABO O Pos [employer] TX UNIT NUMBER [id number] SAFET[place]ACE TX Status TX_TIMEINCHART SAFET[place]ACE TX Blood Bank Product RED BLOOD CELLS [place] TX PRODUCT CODE [id number] [place] Specimen Other Performing Organization Address City/[facility]/Zipcode Phone Number SAF[employer] TX POC-Glucose meter (10/03/2019 4:47 PM CDT)Only the most recent of34 results within the time period is included. POC-Glucose Meter 81Comment: : TESTED AT 70 - 110 mg/dL [facility] [address] [facility], [address]: Blending Operator/Loop Sewer ID = [id number] for QUEEN MURILLO Specimen Blood Performing Organization Address City/[facility] Phone Number [address] [address] CENTER CBC with platelet count + automated diff (10/03/2019 6:01 AM CDT)Only the most recent of8 resultswithin the time period is included. WBC 4.5 3.5 - 10.5 K/L [facility] RBC 2.92 (L) 3.93 - 5.22 M/L [facility] Hemoglobin 8.3 (L) 11.2 - 15.7 GM/DL [facility] Hematocrit 25.7 (L) 34.1 - 44.9 % [facility] MCV 88.0 79.4 - 94.8 fL [facility] MCH 28.4 25.6 - 32.2 pg [facility] MCHC 32.3 32.2 - 35.5 GM/DL [facility] RDW 14.6 (H) 11.7 - 14.4 % [facility] Platelets 226 150 - 450 K/CU MM [facility] MPV 9.7 9.4 - 12.3 fL [facility] nRBC 0 0 - 0 /100 WBC [facility] % Neutros 69 % [facility] % Lymphs 21 % [facility] % Monos 7 % [facility] % Eos 2 % [facility] % Baso 1 % [facility] # Neutros 3.10 1.56 - 6.13 K/L [facility] # Lymphs 0.93 (L) 1.18 - 3.74 K/L [facility] # Monos 0.32 0.24 - 0.36 K/L [facility] # Eos 0.07 0.04 - 0.36 K/L [facility] # Baso 0.04 0.01 - 0.08 K/L [facility] Immature Granulocytes-Relative 0 0 - 1 % C [facility] Specimen Blood Performing Organization Address City/State/Zipcode Phone Number [facility] [address] [place] [address] CENTER Basic Metabolic Panel (10/03/2019 6:01 AM CDT)Only the most recent of6 results within the time period is included. Sodium 139 136 - 145 meq/L [facility] Potassium 3.6 3.5 - 5.1 meq/L [facility] Chloride 105 98 - 107 meq/L [facility] CO2 25 22 - 29 meq/L [facility] BUN 18 7 - 21 mg/dL [facility] Creatinine 3.59 (H) 0.57 - 1.25 mg/dL [facility] Glucose 74 70 - 105 mg/dL [facility] Calcium 7.4 (L) 8.4 - 10.2 mg/dL [facility] EGFR 12Comment: ESTIMATED GFR IS mL/min/1.73 sq m [facility] NOT ACCURATE CREATININE [facility] CLEARANCE IN PREDICTING GLOMERULAR FILTRATION RATE. ESTIMATED GFR IS NOT APPLICABLE FOR DIALYSIS PATIENTS. Specimen Blood Narrative Performed At Blending Operator ID - PIAYA L [facility] Performing Organization Address City/[facility] Facility[facility] Phone Number [address] [address] CENTER Transfuse Leuko-Red RBC (10/03/2019 1:35 AM CDT)Only the most recent of4 resultswithin the time period is included.Type and screen, automated (10/02/2019 6:44 PM CDT)Only the most recent of2 resultswithin the time period is included. ABO/RH AUTOMATED (BEAKER) O POSITIVE [facility] Ab Scrn NEGAT[facility] Specimen Blood Performing Organization Address [facility] Facility[facility] Phone Number [address] [address] Hemoglobin and hematocrit (09/29/2019 6:11 PM CDT) Hemoglobin 8.5 (L) 11.2 - 15.7 GM/DL [facility] Hematocrit 26.9 (L) 34.1 - 44.9 % [facility] Specimen Blood Narrative Performed At Blending Operator ID - [id number] [facility] Performing Organization Address City/[facility]/Zipcode Phone Number [address] [address] CENTER Prothrombin time/INR (09/28/2019 4:10 AM CDT)Only the most recent of4 results within the time period is included. Protime 14.4 (H) 11.9 - 14.[address] [facility] INR 1.2 <=5.9 [facility] Specimen Blood Narrative Performed At Effective 11/15/2018: PT Reference Range [facility] Change New: 11.9-14.2Previous: 11.7-14.7 RECOMMENDED COUMADIN/WARFARIN INR THERAPY RANGES STANDARD DOSE: 2.0-3.0Includes: PROPHYLAXIS for venous thrombosis, systemic embolization; TREATMENT for venous thrombosis and/or pulmonary embolus. HIGH RISK: Target INR is 2.5-3.5 for patients wiht mechanical heart valves. Performing Organization Address City/[facility]/Zipcode Phone Number [facility] [address] [place] [address] CENTER Hepatic function panel (09/28/2019 4:10 AM CDT)Only the most recent of3 results within the time period is included. Protein, Total 5.5 (L) 6.0 - 8.3 gm/dL [facility] Albumin 2.5 (L) 3.5 - 5.0 g/dL [facility] Total Bilirubin 0.5 0.2 - 1.2 mg/dL [facility] Bilirubin, Direct 0.4 0.1 - 0.5 mg/dL [facility] Alkaline Phosphatase 71 40 - 150 U/L [facility] AST 20 5 - 34 U/L [facility] ALT <6 (L) 6 - 55 U/L [facility] Specimen Blood Narrative Performed At Blending Operator ID - MARCELO Sanchez [facility] Performing Organization Address City/State/Zipcode Phone Number [facility] [address] [place] [address] CENTER ECHOCARDIOGRAM REPORT - SCAN (09/27/2019 9:10 PM CDT) Narrative Performed At This result has an attachment that is no t available. REPORT OF PROCEDURE - ENDOSCOPY URL (09/27/2019 2:41 PM CDT) Narrative Performed At This result has an attachment that is no t available. 2D Echo W/Doppler(CW/PW/Color) (09/27/2019 9:11 AM CDT) Ejection Fraction [facility] ECHO HEAR [facility] Specimen Narrative Performed At Transthoracic Echocardiography Report (T TE) [facility] ECHO HEARTLAB [facility] Demographics Patient NameAURY MOULTON Date of Study09/27/2019 HARMEET Gender Female Visit [id number] Race Hispan[place] c [id number] Number [facility] 1940 [facility] Yahaira eid MD Age 79 year(s) SonographAlesha castanon [facility] Interpreting Quincy Guillaume MD Physician FellowJoanna Oconnor MD Procedure Type of Study TTE procedure:2DECHO W DOPPLER(CW/PW/COLOR) (Routine) Indications:Initial evaluation of valvular or structural heart disease. Clinical History HGB 8.5 HCT 25.5 % DM2, CHF, ESRD, DEMENTIA, HTN Height: 59 inches Weight: 40.37 kg (89 lbs) BSA: 1.31 m^2 BMI: 17.98 kg/m^2 HR: 75 bpm BP: 181/74 mmHg Summary 1. The left ventricle is chamber size (by vol index) is normal. Mild concentric hypertrophy. All of the LV segments contract normally. LVEF by Torres's method of disk assessment is normal (55-60%). Grade 1 diastolic dysfunction (impaired relaxation and low-normal LA pressure). LA size is mildly enlarged (35-41 ml/m2). 2. The right ventricular chamber size and systolic function are within normal limits. RA size is normal. Estimated peak systolic PA pressure is 25-30 mmHg (normal range). 3. No significant valvular abnormalitie s. Previous Study No prior exam available for comparison. Signature Findings Left Ventricle The LV endocardium is adequately visualized. Th e left ventricle is chamber size (by vol index) is normal (female - LVED vol - 29-61ml/m2). Mi ld concentric hypertrophy. Al l of the LV segments contract normally . LV EF by Torres's method of disk assessmen t is no rmal (55-60%) . Gr isatu 1 diastolic dysfunction (impaired re laxation an d low-normal LA pressure). Left AtriumLA size is mildly enlarged (35-41 ml/m2) . Right VentricleThe right ventricular chamber size and systolic fu nction are within normal limits. Right Atrium RA size is normal. Atrial SeptumNormal interatrial septum by available views. Aortic Valve Normal AoV structure. Mitral Valve Mild MV leaflet thickening. Mild mitral annular ca lcification. Trace mitral regurgitation. Tricuspid ValveTV structure is normal. Es timated peak systolic PA pressure is 25- 30 mmHg (n ormal range) . Pulmonic Valve Normal PV structure and function by limited views an d Doppler. AortaAortic root size (SInus of Valsalva diameter) i s no rmal . PericardiumNo significant pericardial effusion is visualized. IVC/SVC/PA/PV/PleuralThe estimated RA pressure by IVC dynamics 0-5mmHg . Chambers/Structures Left Atrium LA Volume: 50.97 ml LA Area: 18.81 cm^2 LA Vol. Index: 39 ml/m^2 Left Ventricle LVIDd: 4.22 cm LVEDV:87.41 ml LVIDs: 3.63 cm LV Septum Diastolic: 1.1 cm LV PW Diastolic: 0.82 cm LV Length: 6.8 cm LVEDV Torres's:72.96 ml LV FS: 14 % LVESV Torres's:25.29 ml LVEF Torres's: 65.3 % LVEDVI: 56 ml/m^2 LVES : 19 ml/m^2 LVOT Diameter: 2.06 cm Aorta Ao Root S of Kirsty.: 2.5 cm Doppler/Quantitative Measurements Mitral Valve MV Peak E-Wave: 0.77 m/s MV Peak A-Wave: 1.21 m/s E/A Ratio: 0.63 Mean Velocity: 0.63 m/sPeak Gradient: 2.34 mmHg Mean Gradient: 1.9 mmHgDeceleration Time: 233 msec Area (continuity): 3.71 cm^2 MV VTI: 27.62 cm MV Mumtaz. Peak: 1.27 m/s Aortic Valve Peak Velocity: 1.69 m/sMean Velocity: 1.02 m/s Peak Gradient: 11.43 mmHgMean Gradient: 4.73 mmHg AV Area (continuity): 3.32 cm^2 AV VTI: 30.85 cm AV DVI: 1 LVOT Peak Velocity: 1.39 m/s Peak Gradient: 7.75 mmHg Mean Velocity: 0.89 m/s Mean Gradient: 3.65 mmHg LVOT Diameter: 2.06 cmLVOT VTI: 30.78 cm LVOT Area: 3.33 cm^2LVOT SV:102.54 ml LVOT CO: 7.69 l/min LVOT CI: 5.87 l/min/m^2 Tricuspid Valve TR Velocity: 2.66 m/s TR Gradient: 28.37 mmHg Procedure Note Interface, External Ris In - 09/27/2019 11:02 AM CDT Transthoracic Echocardiography Report (TTE) Demographics Patient Name AURY MOULTON Date o Study 09/27/2019 HARMEET Gender Female Visit Number [id number] [address] [place] [address] Number Date of 1940 Referr paul Barry Physic tristin Casey MD Age 79 year(s) Sonogr apher Mary Murillo RDCS Interp reting Quincy Guillaume MD Physic tristin Fellow Joanna Oconnor MD Procedure Type of Study TTE procedure:2DECHO W DOPPLE R(CW/PW/COLOR) (Routine) Indications:Initial evaluation of valvul ar or structural heart disease. Clinical History HGB 8.5 HCT 25.5 % DM2, CHF, ESRD, DEMENTIA, HTN Height: 59 inches Weight: 40.37 kg (89 l bs) BSA: 1.31 m^2 BMI: 17.98 kg/m^2 HR: 75 bpm BP: 181/74 mmHg Summary 1. The left ventricle is chamber size ( by vol index) is normal. Mild concentric hypertrophy. All of the LV s egments contract normally. LVEF by Torres's method of disk assessment is normal (55-60%). Grade 1 diastolic dysfunction (impaired relaxation and lo w-normal LA pressure). LA size is mildly enlarged (35-41 ml/m2). 2. The right ventricular chamber size a nd systolic function are within normal limits. RA size is normal. Estim ated peak systolic PA pressure is 25-30 mmHg (normal range). 3. No significant valvular abnormalitie s. Previous Study No prior exam available for comparison. Signature Findings Left Ventricle The LV endocardi um is adequately visualized. The left ventric le is chamber size (by vol index) is normal (femal e - LVED vol - 29-61ml/m2). Mild concentric hypertrophy. All of the LV se gments contract normally . LVEF by Torres' s method of disk assessment is normal (55-60%) . Grade 1 diastoli c dysfunction (impaired relaxation and low-normal L A pressure). Left Atrium LA size is mildl y enlarged (35-41 ml/m2) . Right Ventricle The right ventri cular chamber size and systolic function are wit hin normal limits. Right Atrium RA size is doris l. Atrial Septum Normal interatri al septum by available views. Aortic Valve Normal AoV struc ture. Mitral Valve Mild MV leaflet thickening. Mild mitral annular calcification. T race mitral regurgitation. Tricuspid Valve TV structure is normal. Estimated peak s ystolic PA pressure is 25-30 mmHg (normal range) . Pulmonic Valve Normal PV struct ure and function by limited views and Doppler. Aorta Aortic root size (SInus of Valsalva diameter) is normal . Pericardium No significant p ericardial effusion is visualized. IVC/SVC/PA/PV/Pleural The estimated RA pressure by IVC dynamics 0-5mmHg . Chambers/Structures Left Atrium LA Volume: 50.97 ml LA Area: 18.81 cm^2 LA Vol. Index: 39 ml/m^2 Left Ventricle LVIDd: 4.22 cm LVEDV:87.41 ml LVIDs: 3.63 cm LV Septum Diastolic: 1.1 cm LV PW Diastolic: 0.82 cm LV Length: 6.8 cm LVEDV Torres's:72.96 ml LV FS: 14 % LVESV Torres's:25.29 ml LVEF Torres's: 65.3 % LVEDVI: 56 ml/m^2 LVESVI: 19 ml/m^2 LVOT Diameter: 2.06 cm Aorta Ao Root S of Kirsty.: 2.5 cm Doppler/Quantitative Measurements Mitral Valve MV Peak E-Wave: 0.77 m/s MV P eak A-Wave: 1.21 m/s E/A Ratio: 0.63 Mean Velocity: 0.63 m/s Peak Gradient: 2.34 mmHg Mean Gradient: 1.9 mmHg Dece leration Time: 233 msec Area (continuity): 3.71 cm^2 MV V TI: 27.62 cm MV Mumtaz. Peak: 1.27 m/s Aortic Valve Peak Velocity: 1.69 m/s Mean Velocity: 1.02 m/s Peak Gradient: 11.43 mmHg Mean Gradient: 4.73 mmHg AV Area (continuity): 3.32 cm^2 AV VTI: 30.85 cm AV DVI: 1 LVOT Peak Velocity: 1.39 m/s Pea k Gradient: 7.75 mmHg Mean Velocity: 0.89 m/s Peri n Gradient: 3.65 mmHg LVOT Diameter: 2.06 cm LVO T VTI: 30.78 cm LVOT Area: 3.33 cm^2 LVO T SV:102.54 ml LVOT CO: 7.69 l/min LVO T CI: 5.87 l/min/m^2 Tricuspid Valve TR Velocity: 2.66 m/s TR Gradient: 28.37 mmHg Performing Organization Address City/State/[facility] Phone Number [facility] MK[facility] CPACS Phosphorus (09/27/2019 4:26 AM CDT) Phosphorus 2.6 2.3 - 4.7 mg/dL [facility] Specimen Blood Narrative Performed At Blending Operator ID - JB Alvarado [facility] Performing Organization Address City/[facility] Facility[facility] Phone Number [address] [phone] [place] Hepatitis B surface antigen (09/26/2019 8:52 AM CDT) HBsAg Screen Nonreactive Nonreactive [facility] Specimen Blood Narrative Performed At Blending Operator ID - HANNAH [place] [facility] Performing Organization Address City/[facility] Facility[facility]oid Phone Number [address] [address] [place] Magnesium (09/26/2019 8:52 AM CDT) Magnesium 2.0 1.6 - 2.6 mg/dL [facility] Specimen Blood Narrative Performed At Blending Operator ID - HANNAH [place] [facility] Performing Organization Address City/[facility] Facility[facility] Phone Number [address] [address] [place] XR hip 2 views left (09/26/2019 4:45 AM CDT) Specimen Narrative Performed At FINAL REPORT GE RIS CLINICAL HISTORY: "Fracture" COMPARISON: None. FINDINGS: 2 views of the left hip are submitted. There is no acute fracture or malalignme nt. There are fixation screws in the femoral neck which appear properly positioned. Surgical joselin overlie the left latera l hip. Signed: Daniel Landers MD Report Verified Date/Time:09/26/2019 05:18:36 Procedure Note Interface, External Ris In - 09/26/2019 5:20 AM CDT FINAL REPORT CLINICAL HISTORY: "Fracture" COMPARISON: None. FINDINGS: 2 views of the left hip are submitted. There is no acute fracture or malalignme nt. There are fixation screws in the femoral neck which appear properly positioned. Surgical joselin overlie the left latera l hip. Signed: Daniel Landers MD Report Verified Date/Time: 09/26/2019 0 5:18:36 Performing Organization Address [facility] Phone Number GE RIS Vitamin B12 and Folate (09/26/2019 4:09 AM CDT) Vitamin B12 1,334 (H) 213 - 816 pg/mL [facility] Folate 6.40 (L) >=7.00 ng/mL [facility] Specimen Blood Narrative Performed At Blending Operator [facility] Performing Organization Address [facility] [place] Phone Number [address] [address] [place] Iron, TIBC, % sat. (without ferritin) (09/26/2019 4:09 AM CDT) Iron 16.0 (L) 40.0 - 160.0 ug/dL [facility] TIBC 119 (L) 250 - 450 ug/dL [facility] Iron % Saturation 13 (L) 20 - 55 % [facility] Specimen Blood Narrative Performed At Blending Operator [facility] Performing Organization Address [facility] Facility[facility] Phone Number [address] [address] [place] Ferritin (09/26/2019 4:09 AM CDT) Ferritin 1,973.82 (H) 5.00 - 275.00 ng/mL [facility] Specimen Blood Narrative Performed At Blending Operator [facility] Performing Organization Address City/[facility]/Zipcode Phone Number [address] [address] [place] ABORH, manual (09/26/2019 2:07 AM CDT) ABO Grouping [facility] Rh Factor [facility] Specimen Blood Performing Organization Address City/[facility] Facility[facility] Phone Number [address] [address] Blood Culture - Routine (Right Venipuncture) (09/26/2019 2:07 AM CDT) Result No growth in [address] [facility] Specimen Blood Performing Organization Address [facility] Facility[facility] Phone Number [address] [address] [place] Hemoglobin A1c (09/26/2019 1:33 AM CDT) Hemoglobin A1C 5.6 4.3 - 6.1 % [facility] Specimen Blood Performing Organization Address City/[facility] Facilitycode Phone Number [address] [address] [place] Comprehensive metabolic panel (09/25/2019 10:27 PM CDT) Protein, Total 6.0 6.0 - 8.3 gm/dL [facility] Albumin 2.8 (L) 3.5 - 5.0 g/dL [facility] Alkaline Phosphatase 88 40 - 150 U/L [facility] Total Bilirubin 0.5 0.2 - 1.2 mg/dL [facility] Sodium 134 (L) 136 - 145 meq/L [facility] Potassium 3.1 (L) 3.5 - 5.1 meq/L [facility] Chloride 101 98 - 107 meq/L [facility] CO2 19 (L) 22 - 29 meq/L [facility] BUN 45 (H) 7 - 21 mg/dL [facility] Creatinine 5.17 (H) 0.57 - 1.25 mg/dL [facility] Glucose 77 70 - 105 mg/dL [facility] Calcium 7.6 (L) 8.4 - 10.2 mg/dL [facility] AST 20 5 - 34 U/L [facility] ALT <6 (L) 6 - 55 U/L [facility] EGFR 8Comment: ESTIMATED GFR mL/min/1.73 sq m [facility] IS NOT ACCURATE [facility] CREATININE CLEARANCE IN PREDICTING GLOMERULAR FILTRATION RATE. ESTIMATED GFR IS NOT APPLICABLE FOR DIALYSIS PATIENTS. Specimen Blood Narrative Performed At Blending Operator ID - BS [facility] Performing Organization Address City/State/Zipcode Phone Number [facility] [address] [place] [address] CENTER after 10/30/2018 Insurance Payer Benefit Plan / Group Subscriber ID Type Phone A ddress [employer] - MEDICARE MGD [employer] MEDICARE ADV xxxxxxxxx Maps Contracted CARE Advance Directives For more information, please contact:PAVEL Meyers [id number] [place], [place] [phone] Code Status Date Activated Date Inactivated Comments Full Code 09/25/2019 10:39 PM 10/03/2019 7:33 PM This code status was determined by: Patient
--- OUTSIDE RECORDS SUMMARY | 2019-10-31 11:25 | XMS REPORT ---
:1940 Author Organization [facility] t Address [address] [place] [address] Dr. Treviño. [address] [place] [address] Care Team Providers Name Role Phone Viktoria Estrada MD Primary Care Physician Viktoria Estrada MD Attending Clinician Alvino HENDRICKS Attending Clinician Unavailable Don Panda MD Attending Clinician Suzi HENDRICKS Attending Clinician Unavailable Jena PRATHER Attending Clinician Unavailable LUKE HUERTAS Attending Clinician Unavailable Rashaun Murillo MD Attending Clinician Jason Magana MD Attending Clinician [phone] Héctor Attending Clinician Andre Feliz MD Attending Clinician Maicol Vides MD Attending Clinician MARQUITA ABRAHAM Admitting Clinician Unavailable CHIDI Admitting Clinician Unavailable Payers Payer Name Policy Type Policy Number Effective Date Expiration Source Date HUMANA xxxxxxxxx 2019 [place] MEDICAREHUMANA HMO 00:00:00 Method ist GOLD PLUS MEDICARExxxxxxxx06/2019-PresentHMO Problems Condition Condition Condition Status Onset Resolution Last Treating Co mments Source Name Details Category Date Date Treatment Clinician Date Closed Closed Disease Active Overview: [place] fracture fracture 3-17 Added Method i of left of left 00:00: automatic st hip hip 00 ally from request for surgery [id number] Gastrointe Gastrointe Disease Active H seferino stinal stinal 2-23 Methodi bleed bleed 00:00: st 00 Acute Acute Disease Active [place] pulmonary pulmonary 2-18 Meth nery edema edema 00:00: st 00 Hematoma Hematoma Disease Active [place] of groin of groin 03-07 Method i 00:00: st 00 PAD PAD Disease Active Overview: [place] (periphera (periphera 8-22 Added Me thodi l artery l artery 00:00: automatic st disease) disease) 00 ally from request for surgery [id number] Assessmen t & Plan: Doing well after tibial angioplas ty with control of claudicat ion symptoms. She complains of leg swelling for which I recommend light compressi on stockings . To follow-up in 6 months with noninvasi ve testing. 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 03-10 Me thodi emia emia 00:00: st 00 Allergies, Adverse Reactions, Alerts Allergy Allergy Status Severity Reaction(s) Onset Inactive Treating Comm ents Source Name Type Date Date Clinician Codeine Propensi Active hallucina [place] ty to 02-25 tions Methodi adverse 00:00: st reaction 00 s to drug Tramadol Propensi Active Other [place] ty to 1-05 reaction( Methodi adverse 00:00: s): st reaction 00 Hallucina s to tions drug Family History Family Member Diagnosis Comments Start Date Stop Date Source Natural father Heart disease Richardson Amin [facility] Social [facility] Social Habit Start Date Stop Date Quantity Comments Source [facility] of [facility] ethodist Exposure to Unable to assess Richardson Amin SARS-CoV-2 (event) Alcohol intake 2019-09-10 2019-09-10 Current Richardson Me thodist 00:00:00 00:00:00 non-drinker of alcohol (finding) Tobacco Comment 2017-02-25 2017-02-25 socially Richardson Contreras ethodist 00:00:00 00:00:00 Smoking Status Start Date Stop Date Source Former smoker 2019-09-10 00:00:00 2019-09-10 00:00:00 Richardson Amin Medications Ordered Filled Start Stop Current Ordering Indication Dosage Frequency Signature Comments Components Source Medication Medication Date Date Medication? Clinician (SIG) Name Name levothyroxi 2020- Yes [id number] 50ug QD Take 1 [place] ne 4-28 tablet (50 Methodi (SYNTHROID) 00:00: mcg total) st 50 mcg 00 by mouth tablet daily. pentoxifyll 2020-0 Yes [id number] TAKE 1 [place] ine 4-28 TABLET BY Methodi (TRENTal) 00:00: MOUTH st 400 mg CR 00 TWICE A tablet DAY blood sugar 2019-0 Yes [id number] Use one [place] diagnostic 4-20 test strip Met hodi strips 00:00: two times st (glucose 00 daily for blood) blood strip test sugar strips pentoxifyll 2019-0 2020- No [id number] TAKE 1 [place] ine 4-20 04-28 TABLET BY Methodi (TRENTal) 00:00: 00:[address] 400 mg CR 00 :00 TWICE A tablet DAY epoetin 2019-0 2020- No 3000U [id number] Inject 1 [place] misa-epbx 3-27 04-27 [id number] mL (3,000 [facility] (RETACRIT) 00:00: 04:[address] 3,000 00 :00 total) unit/mL under the solution skin 3 injection (three) times a week for 30 days. amLODIPine 2020-0 2020- No 5mg QD Take 1 [place] (NORVASC) 5 3-26 04-26 tablet (5 Me thodi mg tablet 00:00: 04:59 mg total) st 00 :00 by mouth daily for 30 days. aspirin 2020-0 Yes 81mg QD Take 81 mg [place] (ECOTRIN) 3-25 by mouth Method i 81 MG 19:15: daily. st enteric 36 coated tablet latanoprost 2019-0 Yes 1[drp] QD Administer Bai (XALATAN) 09-11 1 drop to Metho di 0.005 % 19:15: both eyes st ophthalmic 36 nightly. solution acetaminoph 2019- No 650mg Q4H Take 2 [place] 09-11-25 tablets Methodi (TYLENOL) 00:00: 04:59 ([address] 325 MG 00 :00 total) by tablet mouth every 4 (four) hours as needed for mild pain, moderate pain or fever for up to 30 days. heparin 2019- No 5000U Q.5D Inject 1 [place] sodium,porc 09-11-25 mL (5,000 Me thodi ine 00:00: 04:[address] (HEParin, 00 :00 total) porcine,) under the 5,000 skin every unit/mL 12 injection (twelve) hours for 30 days. insulin 2019- No 0U Q.[id number] Inject 0-5 Bai lispro 09-11 [id number] Units Metho di (HumaLOG) 00:00: 04:[address] 100 unit/mL 00 :00 skin 3 injection (three) times a day with meals for 30 days. lancets Yes [id number] Use one [place] misc 08-28 lancet two Methodi 00:00: times a st 00 day for glucose blood sugar 2020- No [id number] Use one [place] diagnostic 08-28 test strip Me thodi strips 00:00: 00:[address] (glucose 00 :00 daily for blood) glucose strip test strips levoFLOXaci 2020- No [id number] Take 2 tab Bai n 08-27 PO daily Methodi (LEVAQUIN) 00:00: 00:[address] 250 MG 00 :00 day and tablet then 1 tab PO every 48 hours for 10 days total duration blood-gluco Yes [id number] Use to [place] se meter 08-26 check Methodi misc 00:00: blood st 00 glucose twice daily blood-gluco 2020- Yes [id number] Use as Bai se meter 08-26 instructed Meth nery kit 00:00: 05:59 st 00 :00 benzonatate 2019- 2020- No [id number] 100mg Q.[id number] Take 1 [place] (TESSALON 08-26 [id number] capsule Methodi PERLES) 100 00:00: 00:00 3D ([address] MG capsule 00 :00 total) by mouth 3 (three) times a day as needed for cough for up to 10 days. bromphenira 2020- No [id number] 5mL Q.[id number] Take 5 mL Bai mine-pseudo 08-26 [id number] by mouth 3 Methodi eph-DM 00:00: 00:00 3D (three) st 2-30-10 00 :00 times a mg/5 mL day as syrup needed for cough for up to 10 days. hydrALAZINE 2020- No 25mg Q.5D Take 25 mg Bai (APRESOLINE 08-20 by mouth 2 M ethodi ) 25 MG 20:54: 00:00 (two) st tablet 58 :00 times a day. carvediloL 2019- No 12.5mg Q.5D Take 1 Jerome bauer (COREG) 08-20 tablet Methodi 12.5 MG 00:00: 04:59 (12.[address] tablet 00 :00 total) by mouth 2 (two) times a day for 30 days. hydrALAZINE 2019- No 25mg Q.[id number] Take 1 [place] (APRESOLINE 08-20 [id number] tablet (25 Methodi ) 25 MG 00:00: 04:59 3D mg total) st tablet 00 :00 by mouth every 8 (eight) hours for 30 days. insulin 2020- No 5U Q.5D Inject 5 [place] GLARGINE 08-20 Units Methodi (LANTUS) 00:00: 04:[address] 100 unit/mL 00 :00 skin 2 injection (two) (vial) times a day for 30 days. atorvastati 2019- 2020- No 20mg QD Take 1 [place] n (LIPITOR) 08-20 tablet (20 M ethodi 20 MG 00:00: 04:59 mg total) st tablet 00 :00 by mouth nightly for 30 days. Default OP ins pantoprazol 2020- No 40mg QD Take 1 [place] e 3-03 04-03 tablet (40 Methodi (PROTONIX) 00:00: 04:59 mg total) s t 40 MG EC 00 :00 by mouth tablet daily for 30 days. insulin 2020- No 25U Q.5D Inject 25 [place] detemir 2-19 02-19 Units Methodi (LEVEMIR 16:16: 00:[address] FLEXPEN 51 :00 skin 2 SUBQ) (two) times a day. levothyroxi 2020- No [id number] TAKE 1 [facility] 1-12 04-28 TABLET BY Methodi (SYNTHROID) 00:00: 00:[address] 50 mcg 00 :00 EVERY DAY tablet glimepiride 2018-06- No [id number] TAKE 1 [place] (AMARYL) 4 06-22 03-03 TABLET BY Met hodi MG tablet 00:00: 00:[address] 00 :00 EVERY DAY BEFORE BREAKFAST levothyroxi 2018-06- No [id number] TAKE 1 [place] ne 0-17 01-12 TABLET BY Methodi (SYNTHROID) 00:00: 00:[address] 50 mcg 00 :00 EVERY DAY tablet carvedilol 2018-06- No [id number] TAKE 1 [place] (COREG) 0-04 03-03 TABLET BY Method i 6.25 MG 00:00: 00:[address] tablet 00 :00 TWICE A DAY LEVEMIR 2020- No INJECT SUB [place] FLEXTOUCH 03-02 03-03 35 UNITS Metho di U-100 00:00: 00:[address] INSULN 100 00 :00 HOURS unit/mL (3 mL) insulin pen levothyroxi 2019- No [id number] TAKE 1 [facility] 7-20 10-17 TABLET BY Methodi (SYNTHROID, 00:00: 00:[address] LEVOXYL) 50 00 :00 EVERY DAY mcg tablet lancets 2019- No [id number] Use one [facility] misc 12-28 lancet two Methodi 00:00: 00:[address] 00 :00 day for glucose blood-gluco 2020- No [id number] Use as [place] se meter 12-28 instructed Meth nery kit 00:00: 00:00 st 00 :00 blood sugar 2020- No [id number] Use one [place] diagnostic 12-28 test strip Me thodi strips 00:00: 00:[address] (FREESTYLE 00 :00 a day for LITE glucose STRIPS) strip test strips glimepiride 2019- No [id number] TAKE 1 [place] (AMARYL) 4 10-07 TABLET BY Met hodi MG tablet 00:00: 00:[address] 00 :00 EVERY DAY BEFORE BREAKFAST levothyroxi 2019- No [id number] 50ug QD Take 1 [place] ne 09-1420 tablet (50 [facility] (SYNTHROID, 00:00: 23:09 mcg total) st LEVOXYL) 50 00 :23 by mouth mcg tablet daily. lisinopril 2019- No [id number] 40mg QD Take 1 [place] (PRINIVIL,Z 09-13 tablet (40 M ethodi ESTRIL) 40 00:00: 00:00 mg total) s t mg tablet 00 :00 by mouth daily. hydroCHLORO 2019- No [id number] 12.5mg QD Take 1 [place] thiazide 09-13 tablet Methodi (HYDRODIURI 00:00: 00:00 (12.5 mg s t L) 12.5 MG 00 :00 total) by tablet mouth daily. carvedilol 2019- No [id number] 6.25mg Q.5D TAKE 1 [place] (COREG) 09-08 TABLET Methodi 6.25 MG 00:00: 00:00 (6.[address] tablet 00 :00 TOTAL) BY MOUTH 2 (TWO) TIMES A DAY. LEVEMIR 2017-06 2019- No INJECT SUB [place] FLEXTOUCH 08-15 35 UNITS Metho di U-100 00:00: 00:[address] INSULN 100 00 :00 HOURS unit/mL (3 mL) insulin pen miscellaneo 2017-06 Yes [id number] Use to [facility] medical 08-01 check Methodi supply 00:00: blood st (BLOOD 00 pressure PRESSURE twice CUFF) [facility] daily blood sugar 2017-06 2019- No [id number] Check [place] diagnostic 08-01 blood Methodi strips 00:00: 00:[address] (ACCU-CHEK 00 :00 twice TIFFANIE) daily. strip test strips pentoxifyll 2017-06- No [id number] 1 tablet Bai ine 06-26 04-20 2x a day Methodi (TRENTal) 00:00: 00:[address] 400 mg CR 00 :00 days tablet sitaGLIPtin 2018- No [id number] 100mg QD Take 1 [place] (JANUVIA) 03-01 tablet Methodi 100 MG 00:00: 04:59 ([address] tablet 00 :00 total) by mouth daily. empaglifloz 2019- No [id number] 25mg QD Take 1 [place] in 01-15 tablet (25 Methodi (JARDIANCE) 00:00: 00:00 mg total) st 25 mg 00 :00 by mouth tablet daily. metFORMIN 2019- TAKE 1 [place] (GLUCOPHAGE 12-29 TABLET Metho di ) 1,000 mg 00:00: 00:00 (1,000 MG s t tablet 00 :00 TOTAL) BY MOUTH 2 (TWO) TIMES A DAY WITH MEALS. Immunizations Ordered Immunization Filled Immunization Date Status Commen ts Source Name Name Pneumococcal 2018-05-31 Completed Richardson Conjugate 13-Valent 00:00:00 Metho dist FLUZONE HIGH-DOSE PF 2018-03-01 Completed [place] 00:00:00 [facility] FLUZONE HIGH-DOSE PF 2017-03-10 Completed [place] 00:00:00 [facility] Vital Signs Vital Name Observation Time Observation Value Comments Source Systolic blood 2019-09-12 16:44:54 171 mm[Hg] [place] n [facility] pressure Diastolic blood 2019-09-12 16:44:54 72 mm[Hg] [place] [facility] pressure Heart rate 2019-09-12 16:44:54 76 /min Richardson Amin Body temperature 2019-09-12 16:44:54 36.44 Yoko [place] [facility] Respiratory rate 2019-09-12 16:44:54 14 /min [place] [facility] Oxygen saturation in 2019-09-12 16:44:54 98 /min Richardson Amin Arterial blood by Pulse oximetry Body height 2019-08-27 19:44:00 147.3 cm Richardson Amin Body weight 2019-08-27 19:44:00 46.72 kg Richardson Amin BMI 2019-08-27 19:44:00 21.53 kg/m2 Richardson Amin Procedures Procedure Date / Time Performing Clinician Source Performed XR LOWER EXTREMITY 2019-09-21 19:37:00 Oniel Panda ethodist EXTERNAL STUDY POC GLUCOSE 2019-09-12 17:02:00 Dorota Murillo POC GLUCOSE 2019-09-12 13:20:00 Dorota Murillo POC GLUCOSE 2019-09-12 02:36:00 Dorota Murillo POC GLUCOSE 2019-09-11 17:38:00 Dorota Murillo HEPATITIS B SURFACE 2019-09-11 15:57:00 Alfonso Saldaña ANTIGEN POC GLUCOSE 2019-09-11 13:36:00 Dorota Murillo HC COMPLETE BLD COUNT 2019-09-11 13:15:00 Dorota Murillo W/AUTO DIFF BASIC METABOLIC PANEL 2019-09-11 05:00:00 Dorota Murillo ESTIMATED GFR 2019-09-11 05:00:00 Dorota Murillo POC GLUCOSE 2019-09-11 03:15:00 Dorota Murillo HEMODIALYSIS 2019-09-10 23:29:44 Alfonso Saldaña Nc thodist POC GLUCOSE 2019-09-10 22:25:00 Dorota Murillo POC GLUCOSE 2019-09-10 18:03:00 Dorota Murillo POC GLUCOSE 2019-09-10 02:28:00 Dorota Murillo POC GLUCOSE 2019-09-09 23:33:00 Dorota Murillo POC GLUCOSE 2019-09-09 17:16:00 Dorota Murillo POC GLUCOSE 2019-09-09 12:00:00 Dorota Murillo POC GLUCOSE 2019-09-09 02:18:00 Dorota Murillo POC GLUCOSE 2019-09-08 22:54:00 Dorota Murillo POC GLUCOSE 2019-09-08 17:30:00 Dorota Murillo POC GLUCOSE 2019-09-08 14:06:00 Dorota Murillo CBC HEMOGRAM 2019-09-08 12:30:00 Hernandez Calabrese Meth odist BASIC METABOLIC PANEL 2019-09-08 09:00:00 Hernandez Calabresebeverly n Catholic PHOSPHORUS LEVEL 2019-09-08 09:00:00 Hernandez Calabrese Met hodist MAGNESIUM LEVEL 2019-09-08 09:00:00 Hernandez Calabrese Rafy odist ESTIMATED GFR 2019-09-08 09:00:00 Alfonso Saldaña Me thodist POC GLUCOSE 2019-09-08 03:15:00 Dorota Murillo POC GLUCOSE 2019-09-07 21:59:00 Dorota Murillo HEMODIALYSIS 2019-09-07 21:20:42 Hernandez Calabrese Richardson Hillman odist POC GLUCOSE 2019-09-07 14:36:00 Dorota Murillo OR FL > 1 HOUR 2019-09-07 14:16:51 Rahul Edgar RI AN ELECTIVE 2019-09-07 13:41:10 Matias Douglas ethodist ENDOTRACHEAL AIRWAY PINNING, HIP, PERCUTANEOUS 2019-09-07 12:57:00 Oniel Panda POC PANEL 4 2019-09-07 11:48:00 Dorota Murillo POC GLUCOSE 2019-09-07 10:21:00 Dorota Murillo HC COMPLETE BLD COUNT 2019-09-07 09:30:00 Dorota Murillo W/AUTO DIFF BASIC METABOLIC PANEL 2019-09-07 09:30:00 Dorota Murillo FERRITIN LEVEL 2019-09-07 09:30:00 Hernandez Calabrese Richardson valdes TOTAL IRON BINDING 2019-09-07 09:30:00 Hernandez Calabrese Richardson Contreras ethodist CAPACITY PARTIAL THROMBOPLASTIN 2019-09-07 09:30:00 Home Hillist TIME (PTT) PROTHROMBIN TIME WITH INR 2019-09-07 09:30:00 oHme Hill ESTIMATED GFR 2019-09-07 09:30:00 Alfonso Saldaña Me thodist POC GLUCOSE 2019-09-07 02:48:00 Dorota Murillo POC GLUCOSE 2019-09-06 22:11:00 Dorota Murillo POC GLUCOSE 2019-09-06 17:32:00 Dorota Murillo POC GLUCOSE 2019-09-06 15:46:00 Dorota Murillo HEMODIALYSIS 2019-09-06 11:22:46 Shaun Latif thodist HC COMPLETE BLD COUNT 2019-09-06 11:00:00 Dorota Murillo W/AUTO DIFF PARTIAL THROMBOPLASTIN 2019-09-06 11:00:00 [place] on Catholic TIME (PTT) PROTHROMBIN TIME WITH INR 2019-09-06 11:00:00 [place] BASIC METABOLIC PANEL 2019-09-06 09:00:00 Dorota Murillo MAGNESIUM LEVEL 2019-09-06 09:00:00 Hernandez Calabrese Meth odist PHOSPHORUS LEVEL 2019-09-06 09:00:00 Hernandez Calabrese Met hodist ALBUMIN LEVEL 2019-09-06 09:00:00 Hernandez Calabrese Meth odist ESTIMATED GFR 2019-09-06 09:00:00 Dorota Murillo POC GLUCOSE 2019-09-06 04:55:00 Dorota Murillo ECG 12-LEAD 2019-09-05 23:15:09 Emily Ulloa Meth odist POC GLUCOSE 2019-09-05 22:20:00 Dorota Murillo XR HIP 2-3 VIEWS LEFT 2019-09-05 19:13:12 Dorota Murillo XR FEMUR 2 VW LEFT 2019-09-05 19:13:00 Abdirahman Bridges ethodist XR PELVIS 1 OR 2 VW 2019-09-05 19:12:43 Abdirahman Bridges POC GLUCOSE 2019-09-05 17:30:00 Dorota Murillo POC GLUCOSE 2019-09-05 12:23:00 Dorota Murillo HC COMPLETE BLD COUNT 2019-09-05 11:10:00 Dorota Murillo W/AUTO DIFF PROTHROMBIN TIME WITH INR 2019-09-05 11:10:00 Dorota Murillo PARTIAL THROMBOPLASTIN 2019-09-05 11:10:00 Dorota Murillo TIME (PTT) TYPE AND SCREEN 2019-09-05 11:10:00 Dorota Murillo BASIC METABOLIC PANEL 2019-09-05 09:00:00 Dorota Murillo ESTIMATED GFR 2019-09-05 09:00:00 Dorota Murillo POC GLUCOSE 2019-09-05 02:57:00 Dorota Murillo XR CHEST 2 VW 2019-08-27 21:54:57 Srinivasan Estrada ethodist URINE CULTURE 2019-08-27 21:10:00 Srinivasan Estrada ethodi URINALYSIS, COMPLETE, WITH 2019-08-27 21:10:00 Srinivasan Estrada REFLEX TO CULTURE POC GLUCOSE 2019-08-21 18:25:00 Dorota Murillo POC GLUCOSE 2019-08-21 14:21:00 Dorota Murillo BASIC METABOLIC PANEL 2019-08-21 08:00:00 Alexander Escudero CBC WITH PLATELET AND 2019-08-21 08:00:00 Alexander Escudero DIFFERENTIAL MAGNESIUM LEVEL 2019-08-21 08:00:00 Alexander Escudero odist ESTIMATED GFR 2019-08-21 08:00:00 Alexander Escudero odcleve PHOSPHORUS LEVEL 2019-08-21 08:00:00 Alexander Escudero Met hodist MANUAL DIFFERENTIAL 2019-08-21 08:00:00 Alexander Escudero Catholic HEMODIALYSIS 2019-08-21 04:22:49 Hernandez Calabrese Meth odist POC GLUCOSE 2019-08-21 03:18:00 Dorota Murillo POC GLUCOSE 2019-08-21 00:23:00 Dorota Murillo POC GLUCOSE 2019-08-20 23:13:00 Dorota Murillo POC GLUCOSE 2019-08-20 17:08:00 Dorota Murillo POC GLUCOSE 2019-08-20 13:58:00 Dorota Murillo BASIC METABOLIC PANEL 2019-08-20 11:05:00 Alexander Escudero CBC WITH PLATELET AND 2019-08-20 11:05:00 Alexander Escudero n Catholic DIFFERENTIAL MAGNESIUM LEVEL 2019-08-20 11:05:00 Alexander Escudero Meth odist ESTIMATED GFR 2019-08-20 11:05:00 Alexander Escudero Meth odist MANUAL DIFFERENTIAL 2019-08-20 11:05:00 Alexander Escuderoist POC GLUCOSE 2019-08-20 03:15:00 Dorota Murilloist POC GLUCOSE 2019-08-19 23:14:00 Dorota Murilloist POC GLUCOSE 2019-08-19 17:55:00 Dorota Murillo ECG 12-LEAD 2019-08-19 15:26:38 Emily Ulloa odist POC GLUCOSE 2019-08-19 14:53:00 Dorota Murillo ESTIMATED GFR 2019-08-19 10:00:00 Alfonso Saldaña thodist BASIC METABOLIC PANEL 2019-08-19 10:00:00 Alfonso Saldaña Catholic POC GLUCOSE 2019-08-18 23:56:00 Dorota Murilloist POC GLUCOSE 2019-08-18 19:01:00 Dorota Murillo HEMODIALYSIS 2019-08-18 14:45:54 Alfonso Saldaña Nc thodist POC GLUCOSE 2019-08-18 13:36:00 Dorota Murilloist POC GLUCOSE 2019-08-18 03:00:00 Dorota Murillo POC GLUCOSE 2019-08-18 00:13:00 Dorota Murilloist POC GLUCOSE 2019-08-17 18:44:00 Dorota Murillo CV STRESS TEST NUCLEAR 2019-08-17 14:37:36 Emily Ulloa on Catholic CARDIO NM MYOCARDIAL PERFUSION 2019-08-17 14:37:36 Emily Ulloa Catholic STRESS REST 1 DAY POC GLUCOSE 2019-08-17 13:53:00 Dorota Murillo BASIC METABOLIC PANEL 2019-08-17 09:40:00 Alfonso Saldaña Catholic PHOSPHORUS LEVEL 2019-08-17 09:40:00 Alfonso Saldaña M ethodist ESTIMATED GFR 2019-08-17 09:40:00 Alfonso Saldaña Nc thodist POC GLUCOSE 2019-08-17 03:56:00 Dorota Murillo POC GLUCOSE 2019-08-16 22:07:00 Dorota Murillo POC GLUCOSE 2019-08-16 17:38:[address] HEAD WO CONTRAST 2019-08-16 17:21:25 Emily Ulloa BASIC METABOLIC PANEL 2019-08-16 16:29:00 Alfonso Saldaña ESTIMATED GFR 2019-08-16 16:29:00 Alfonso Saldaña Nc thodist POC GLUCOSE 2019-08-16 13:41:00 Dorota Murillo POC GLUCOSE 2019-08-16 00:03:00 Dorota Murillo POC GLUCOSE 2019-08-15 18:07:00 Dorota Murillo HEMODIALYSIS 2019-08-15 18:04:10 Gorge Shepard Meth odist POC GLUCOSE 2019-08-15 14:29:00 Dorota Murillo HC COMPLETE BLD COUNT 2019-08-15 14:15:00 Gorge Shepard W/AUTO DIFF BASIC METABOLIC PANEL 2019-08-15 14:15:00 Gorge Shepard MAGNESIUM LEVEL 2019-08-15 14:15:00 Gorge Shepard Meth odist PHOSPHORUS LEVEL 2019-08-15 14:15:00 Gorge Shepard hodist ESTIMATED GFR 2019-08-15 14:15:00 Dorota Murillo POC GLUCOSE 2019-08-15 03:45:00 Dorota Murillo POC GLUCOSE 2019-08-14 22:20:00 Dorota Murillo POC GLUCOSE 2019-08-14 17:11:00 Dorota Murillo HEPATITIS C ANTIBODY 2019-08-14 16:05:00 Gorge Shepard HEPATITIS B SURFACE 2019-08-14 16:05:00 Gorge Shepard ANTIGEN HEPATITIS B SURFACE 2019-08-14 16:05:00 Gorge Shepard ANTIBODY HEPATITIS B CORE ANTIBODY 2019-08-14 16:05:00 Drea Gorge Jerome juancarlos Catholic TOTAL HEMODIALYSIS 2019-08-14 15:00:19 Gorge Shepard Meth odist POC GLUCOSE 2019-08-14 13:36:00 Dorota Murillo HC COMPLETE BLD COUNT 2019-08-14 11:30:00 Ngitit, Kiara Amin W/AUTO DIFF [place] BASIC METABOLIC PANEL 2019-08-14 10:00:00 Ngitit, Kiara Bauerist [place] ESTIMATED GFR 2019-08-14 10:00:00 Ngitit, Kiara Bai Meth odist [place] POC GLUCOSE 2019-08-14 02:06:00 Dorota Murillo IR TUNNELED DIALYSIS 2019-08-14 00:37:51 Gorge Shepard CATHETER PLACEMENT HEPATITIS B SURFACE 2019-08-13 23:28:00 Gorge Shepard ANTIGEN POC GLUCOSE 2019-08-13 23:15:00 Dorota Murillo POC GLUCOSE 2019-08-13 17:54:00 Dorota Murillo HEMODIALYSIS 2019-08-13 17:03:59 Gorge Shepard odist POC GLUCOSE 2019-08-13 13:28:00 Dorota Murillo HC COMPLETE BLD COUNT 2019-08-13 10:50:00 Ngitit, Kiara Amin W/AUTO DIFF [place] IONIZED CALCIUM 2019-08-13 10:00:00 Ngitit, Kiara Hillman odist [place] BASIC METABOLIC PANEL 2019-08-13 10:00:00 Ngitit, Kiara Bauerist [place] ESTIMATED GFR 2019-08-13 10:00:00 NgititKiara odist [place] POC GLUCOSE 2019-08-13 02:33:00 Dorota Murillo POTASSIUM LEVEL 2019-08-13 01:00:00 Richardson Segovia Yuni Adrianna POC GLUCOSE 2019-08-13 00:25:00 Dorota Murillo POC GLUCOSE 2019-08-12 22:18:00 Dorota Murillo POC GLUCOSE 2019-08-12 17:43:00 Dorota Murillo XR CHEST 1 VW PORTABLE 2019-08-12 15:16:41 Ngitit, Kiara Croft on Catholic [place] POC GLUCOSE 2019-08-12 12:59:00 Dorota Murillo CBC WITH PLATELET AND 2019-08-12 11:00:00 Ngitit, Kiara ferreira Catholic DIFFERENTIAL [place] BASIC METABOLIC PANEL 2019-08-12 11:00:00 Ngitit, Kiara ferreira Catholic [place] MAGNESIUM LEVEL 2019-08-12 11:00:00 Ngitit, Kiara Richardson Meth odist [place] PHOSPHORUS LEVEL 2019-08-12 11:00:00 Ngitit, Kiara Bai Met hodcleve [place] IONIZED CALCIUM 2019-08-12 11:00:00 Ngitit, Kiara Richardson Meth odist [place] B NATRIURETIC PEPTIDE 2019-08-12 11:00:00 Ngitit, Kiara ferreira Catholic [place] ESTIMATED GFR 2019-08-12 11:00:00 Ngitit, Kiara Richardson Meth odist [place] MANUAL DIFFERENTIAL 2019-08-12 11:00:00 Ngitit, Kiara Bauerist [place] POC GLUCOSE 2019-08-12 02:34:00 Dorota Murillo POC GLUCOSE 2019-08-12 00:06:00 Dorota Murillo HEMOGLOBIN & HEMATOCRIT 2019-08-11 22:55:00 Tavia Segovia TRANSFUSE RED BLOOD CELLS 2019-08-11 19:35:12 Dorota Murillo POC GLUCOSE 2019-08-11 18:24:00 Dorota Murillo TRANSFUSE RED BLOOD CELLS 2019-08-11 17:13:19 Dorota Murillo OCCULT BLOOD, STOOL 2019-08-11 14:17:00 Dorota Murillo POC GLUCOSE 2019-08-11 14:02:00 Dorota Murillo HEMOGLOBIN & HEMATOCRIT 2019-08-11 13:28:00 Indigo Piper TYPE AND SCREEN 2019-08-11 12:24:00 Indigo Piper Nc thodist PREPARE RBC 2019-08-11 12:24:00 Dorota Murillo POC GLUCOSE 2019-08-11 12:04:00 Dorota Murillo POC GLUCOSE 2019-08-11 10:57:00 Dorota Murillo HC COMPLETE BLD COUNT 2019-08-11 10:35:00 Indigo Piper W/AUTO DIFF SMEAR REVIEW 2019-08-11 10:35:00 Indigo Piper Nc thodist BASIC METABOLIC PANEL 2019-08-11 10:11:00 Indigo Piperist ESTIMATED GFR 2019-08-11 10:11:00 Indigo Piper Nc thodist POC GLUCOSE 2019-08-11 06:25:00 Dorota Murillo POC GLUCOSE 2019-08-11 02:52:00 Dorota Murillo POC GLUCOSE 2019-08-10 22:59:00 Dorota Murillo POC GLUCOSE 2019-08-10 18:19:00 Dorota Murillo POC GLUCOSE 2019-08-10 17:00:00 Dorota Murillo POC GLUCOSE 2019-08-10 14:31:00 Dorota Murillo POC GLUCOSE 2019-08-10 13:21:00 Dorota Murillo HC COMPLETE BLD COUNT 2019-08-10 11:23:00 Dorota Murillo W/AUTO DIFF BASIC METABOLIC PANEL 2019-08-10 11:23:00 Dorota Murillo ESTIMATED GFR 2019-08-10 11:23:00 Dorota Murillo POC GLUCOSE 2019-08-10 10:01:00 Dorota Murillo POC GLUCOSE 2019-08-10 06:27:00 Dorota Murillo POC GLUCOSE 2019-08-10 03:24:00 Dorota Murillo US RENAL DOPPLER 2019-08-10 03:00:00 Gorge Shepard hodist POC GLUCOSE 2019-08-09 22:35:00 Dorota Murillo POC GLUCOSE 2019-08-09 18:39:00 Dorota Murillo URINALYSIS, AUTOMATED WITH 2019-08-09 17:49:00 Gorge Shepard MICROSCOPY BODY FLUID CONSULT 2019-08-09 17:49:00 Dorota Murillo C4 COMPLEMENT COMPONENT 2019-08-09 17:45:00 Gorge Shepard DNA AB SCREEN 2019-08-09 17:45:00 Gorge Shepard BARNETT ANTIBODY 2019-08-09 17:45:00 Gorge Shepard odcleve TORITO 2019-08-09 17:45:00 Dorota Murillo GLOMERULAR BASEMENT 2019-08-09 17:45:00 Dorota Murillo MEMBRANE AB IGG (IFA) TORITO TITER 2019-08-09 17:45:00 Dorota Murillo XR CHEST 1 VW PORTABLE 2019-08-09 15:58:30 NgKiara medina Galleon POC GLUCOSE 2019-08-09 14:09:00 Dorota Murillo HC COMPLETE BLD COUNT 2019-08-09 11:20:00 Dorota Murillo W/AUTO DIFF D-DIMER 2019-08-09 11:20:00 Mu Teague VENOUS BLOOD GAS 2019-08-09 11:20:00 Gorge Shepard B NATRIURETIC PEPTIDE 2019-08-09 11:20:00 Dorota Murillo POC GLUCOSE 2019-08-09 10:54:00 Dorota Murillo BASIC METABOLIC PANEL 2019-08-09 10:00:00 Dorota Murillo FERRITIN LEVEL 2019-08-09 10:00:00 Gorge Shepard TOTAL IRON BINDING 2019-08-09 10:00:00 Gorge Shepard ethodist CAPACITY CREATINE KINASE, TOTAL 2019-08-09 10:00:00 Gorge Shepard (CPK) ESTIMATED GFR 2019-08-09 10:00:00 Dorota Murillo POC GLUCOSE 2019-08-09 08:22:00 Dorota Murillo LACTIC ACID LEVEL 2019-08-09 06:17:00 Gorge Shepard Me thodist KAPPA LAMBDA FREE LIGHT 2019-08-09 06:17:00 Gorge Shepard CHAIN WITH RATIO SERUM ELECTROPHORESIS 2019-08-09 06:17:00 Gorge Shepard US CAROTID DUPLEX 2019-08-09 03:20:00 Dorota Murillo BILATERAL POC GLUCOSE 2019-08-09 03:13:00 Dorota Murillo POC GLUCOSE 2019-08-09 00:26:00 Dorota Murillo URINE CULTURE 2019-08-08 22:57:00 Dorota Murillo US RENAL 2019-08-08 21:35:00 Gorge Shepard Meth odcleve URINALYSIS SCREEN AND 2019-08-08 19:43:00 Gorge Shepard MICROSCOPY, WITH REFLEX TO CULTURE UREA NITROGEN, URINE, 2019-08-08 19:43:00 Gorge Shepard RANDOM SODIUM LEVEL, URINE, 2019-08-08 19:43:00 Dorota Murillo RANDOM CREATININE LEVEL, URINE, 2019-08-08 19:43:00 Dorota Murillo RANDOM PROTEIN, URINE, RANDOM 2019-08-08 19:43:00 Dorota Murillo POC GLUCOSE 2019-08-08 18:32:00 Dorota Murillo POC GLUCOSE 2019-08-08 13:33:00 Dorota Murillo POC GLUCOSE 2019-08-08 11:58:00 Dorota Murillo POC GLUCOSE 2019-08-08 10:18:00 Dorota Murillo TROPONIN 2019-08-08 10:04:00 Dorota Murillo COMPREHENSIVE METABOLIC 2019-08-08 08:24:00 Dorota Murillo PANEL ESTIMATED GFR 2019-08-08 08:24:00 Dorota Murillo HC COMPLETE BLD COUNT 2019-08-08 07:40:00 Dorota Murillo W/AUTO DIFF BASIC METABOLIC PANEL 2019-08-08 07:40:00 Dorota Murillo HEMOGLOBIN A1C 2019-08-08 07:40:00 Dorota Murillo THYROID STIMULATING 2019-08-08 07:40:00 Dorota Murillo HORMONE T4, FREE 2019-08-08 07:40:00 Dorota Murillo LIPID PANEL 2019-08-08 07:40:00 Dorota Murillo ESTIMATED GFR 2019-08-08 07:40:00 Dorota Murillo TROPONIN 2019-08-08 06:09:00 Dorota Murillo XR CHEST 1 VW PORTABLE 2019-08-08 03:08:29 AttEmily dang ECG 12-LEAD 2019-08-08 02:50:43 Emily Ulloa B NATRIURETIC PEPTIDE 2019-08-08 02:45:00 Emily Ulloa TROPONIN 2019-08-08 02:45:00 Emily Ulloa COMPREHENSIVE METABOLIC 2019-08-08 02:45:00 AttEmily dang PANEL HC COMPLETE BLD COUNT 2019-08-08 02:45:00 Emily Ulloa W/AUTO DIFF ESTIMATED GFR 2019-08-08 02:45:00 Emily Ulloa RI CRITICAL CARE, E/M 2019-08-08 02:33:40 Gabino Feliz 30-74 MINUTES HC COMPLETE BLD COUNT 2019-08-08 00:42:00 Ed Verma W/AUTO DIFF PROTHROMBIN TIME WITH INR 2019-08-08 00:42:00 Ed Verma PARTIAL THROMBOPLASTIN 2019-08-08 00:42:00 Ed Verma TIME (PTT) COMPREHENSIVE METABOLIC 2019-08-08 00:42:00 Ed Verma PANEL AMYLASE LEVEL 2019-08-08 00:42:00 Ed Verma ethodist LIPASE LEVEL 2019-08-08 00:42:00 Ed Vermaodist ESTIMATED GFR 2019-08-08 00:42:00 Verma, Ed B. Bai M ethodist TTE COMPLETE, WO CONTRAST, 2019-08-07 06:45:00 Dorota Murillo W DOPPLER ([id number]) PV PHYSIOLOGIC ARTERIAL 2019-04-11 15:30:00 Nando Vides LOWER EXTREMITY COMPLETE Maicol Plan of Care Planned Activity Planned Date Details Comments Source Future Scheduled Test [code = ] Future Scheduled Test [code = ] Future Scheduled Test [code = ] Future Scheduled Test [code = ] Future Scheduled Test [code = ] Future Scheduled Test [code = ] Encounters Start End Encounter Admission Attending Care Care Encounter Source Date/Time Date/Time Type Type Clinicians Facility Department ID 2019-10-24 2019-10-24 Outpatient ESTRADA, [facility] [id number] [place] 00:00:00 00:00:00 SRINIVASAN [address] 2019-10-02 2019-10-02 Outpatient ONIEL PANDA [facility] [id number] [place] 00:00:00 00:00:[address] 2019-09-04 2019-09-12 Inpatient CHIDI, [facility] [id number] [place] 00:00:00 00:00:00 DOROTA [address] 2019-08-27 2019-08-27 Outpatient ESTRADA, [facility] [id number] [place] 00:00:00 00:00:00 SRINIVASAN [address] 2019-08-27 2019-08-27 Outpatient ESTRADA, [facility] [id number] [place] 00:00:00 00:00:00 SRINIVASAN [address] 2019-08-07 2019-08-21 Inpatient CHIDI, [facility] [id number] [place] 00:00:00 00:00:00 DOROTA [address] Results Test Description Test Time Test Comments Results Result Comments Source POCT-GLUCOSE METER 2019-10-03 16:59:00 Test Item Value Reference Range Interpretation Comme nts POC-GLUCOSE METER (BEAKER) 81 mg/dL 70-110 : TESTED AT [facility] [address] [facility] (test code = 1538) [place], [address]: Public Transportation Inspector/Techni jamey ID = [id number] for CHIDIQUEEN POCT-GLUCOSE [id number] 11:50:00 Test Item Value Reference Range Interpretation Comments POC-GLUCOSE METER 123 mg/dL 70-110 H : TESTED A T [facility] 6720 (BEAKER) (test code = [facility], 153) 768[address]: Public Transportation Inspector/Techni jamey ID = [id number] for QUEEN BECKER POCT-GLUCOSE [id number] 11:07:00 Test Item Value Reference Range Interpretation Comments POC-GLUCOSE METER 127 mg/dL 70-110 H : TESTED A T [facility] 6720 (BEAKER) (test code = [facility], 1538) 80[address]: Public Transportation Inspector/Techni jamey ID = [id number] for Argenis renteria, Thomas POCT-GLUCOSE [id number] 08:22:00 Test Item Value Reference Range Interpretation Comments POC-GLUCOSE METER 78 mg/dL 70-110 : TESTED A T [facility] 6720 (BEAKER) (test code = [facility], 1538) [address]87[address]: Public Transportation Inspector/Techni jamey ID = [id number] for Imani kaufman, Thomas POCT-GLUCOSE [id number] 07:54:00 Test Item Value Reference Range Interpretation Comments POC-GLUCOSE METER 69 mg/dL 70-110 L : TESTED A T [facility] 6720 (BEAKER) (test code = [facility], 1538) 57[address]: Public Transportation Inspector/Techni jamey ID = [id number] for QUEEN KNOX BASIC METABOLIC [id number] 07:05:00 Test Item Value Reference Range Interpretation Comments SODIUM (BEAKER) 139 meq/L 136-145 (test code = 381) POTASSIUM (BEAKER) 3.6 meq/L 3.5-5.1 (test code = 379) CHLORIDE (BEAKER) 105 meq/L 98-107 (test code = 382) CO2 (BEAKER) (test 25 meq/L 22-29 code = 355) BLOOD UREA NITROGEN 18 mg/dL 7-21 (BEAKER) (test code = 354) CREATININE (BEAKER) 3.59 mg/dL 0.57-1.25 H (test code = 358) GLUCOSE RANDOM 74 mg/dL 70-105 (BEAKER) (test code = 652) CALCIUM (BEAKER) 7.4 mg/dL 8.4-10.2 L (test code = 697) EGFR (BEAKER) (test 12 mL/min/1.73 ESTIMA IDA GFR IS code = 1092) sq m NOT ACCURATE CREATININE CLEARANCE IN PREDICTING GLOMERULAR FILTRATION RATE . ESTIMATED GFR I S NOT APPLICABLE FOR DIALYSIS PATIEN TS. Public Transportation Inspector ID - PIAYA LCBC W/PLT COUNT & AUTO [id number] 06:42:00 Test Item Value Reference Range Interpretation Comments WHITE BLOOD CELL COUNT (BEAKER) 4.5 K/ L 3.5-10.5 (test code = 775) RED BLOOD CELL COUNT (BEAKER) 2.92 M/ L 3.93-5.22 L (test code = 761) HEMOGLOBIN (BEAKER) (test code = 8.3 GM/DL 11.2-15.7 L 410) HEMATOCRIT (BEAKER) (test code = 25.7 % 34.1-44.9 L 411) MEAN CORPUSCULAR VOLUME (BEAKER) 88.0 fL 79.4-94.8 (test code = 753) MEAN CORPUSCULAR HEMOGLOBIN 28.4 pg 25.6-32.2 (BEAKER) (test code = 751) MEAN CORPUSCULAR HEMOGLOBIN CONC 32.3 GM/DL 32.2-35.5 (BEAKER) (test code = 752) RED CELL DISTRIBUTION WIDTH 14.6 % 11.7-14.4 H (BEAKER) (test code = 412) PLATELET COUNT (BEAKER) (test 226 K/CU MM 150-450 code = 756) MEAN PLATELET VOLUME (BEAKER) 9.7 fL 9.4-12.3 (test code = 754) NUCLEATED RED BLOOD CELLS 0 /100 WBC 0-0 (BEAKER) (test code = 413) NEUTROPHILS RELATIVE PERCENT 69 % (BEAKER) (test code = 429) LYMPHOCYTES RELATIVE PERCENT 21 % (BEAKER) (test code = 430) MONOCYTES RELATIVE PERCENT 7 % (BEAKER) (test code = 431) EOSINOPHILS RELATIVE PERCENT 2 % (BEAKER) (test code = 432) BASOPHILS RELATIVE PERCENT 1 % (BEAKER) (test code = 437) NEUTROPHILS ABSOLUTE COUNT 3.10 K/ L 1.56-6.13 (BEAKER) (test code = 670) LYMPHOCYTES ABSOLUTE COUNT 0.93 K/ L 1.18-3.74 L (BEAKER) (test code = 414) MONOCYTES ABSOLUTE COUNT (BEAKER) 0.32 K/ L 0.24-0.36 (test code = 415) EOSINOPHILS ABSOLUTE COUNT 0.07 K/ L 0.04-0.36 (BEAKER) (test code = 416) BASOPHILS ABSOLUTE COUNT (BEAKER) 0.04 K/ L 0.01-0.08 (test code = 417) IMMATURE GRANULOCYTES-RELATIVE 0 % 0-1 PERCENT (BEAKER) (test code = 2801) POCT-GLUCOSE [id number] 21:29:00 Test Item Value Reference Range Interpretation Comments POC-GLUCOSE METER 95 mg/dL 70-110 : TESTED A T [facility] 6720 (BEAKER) (test code = [facility], 1538) [address]: Public Transportation Inspector/Techni jamey ID = [id number] for MERLE MILLER BASIC METABOLIC [id number] 17:44:00 Test Item Value Reference Range Interpretation Comments SODIUM (BEAKER) 138 meq/L 136-145 (test code = 381) POTASSIUM (BEAKER) 3.7 meq/L 3.5-5.1 (test code = 379) CHLORIDE (BEAKER) 103 meq/L 98-107 (test code = 382) CO2 (BEAKER) (test 27 meq/L 22-29 code = 355) BLOOD UREA NITROGEN 17 mg/dL 7-21 (BEAKER) (test code = 354) CREATININE (BEAKER) 3.15 mg/dL 0.57-1.25 H (test code = 358) GLUCOSE RANDOM 91 mg/dL 70-105 (BEAKER) (test code = 652) CALCIUM (BEAKER) 7.5 mg/dL 8.4-10.2 L (test code = 697) EGFR (BEAKER) (test 14 mL/min/1.73 ESTIMA IDA GFR IS code = 1092) sq m NOT ACCURATE CREATININE CLEARANCE IN PREDICTING GLOMERULAR FILTRATION RATE . ESTIMATED GFR I S NOT APPLICABLE FOR DIALYSIS PATIEN TS. Public Transportation Inspector ID - BSPOCT-GLUCOSE [id number] 17:42:00 Test Item Value Reference Range Interpretation Comments POC-GLUCOSE METER 96 mg/dL 70-110 : TESTED A T [facility] 6720 (BEAKER) (test code = [facility], 1538) 15[address]: Public Transportation Inspector/Techni jamey ID = [id number] for DERIK PEDRO CBC W/PLT COUNT & AUTO [id number] 17:37:00 Test Item Value Reference Range Interpretation Comments WHITE BLOOD CELL COUNT (BEAKER) 5.0 K/ L 3.5-10.5 (test code = 775) RED BLOOD CELL COUNT (BEAKER) 2.24 M/ L 3.93-5.22 L (test code = 761) HEMOGLOBIN (BEAKER) (test code = 6.1 GM/DL 11.2-15.7 L 410) HEMATOCRIT (BEAKER) (test code = 19.9 % 34.1-44.9 L 411) MEAN CORPUSCULAR VOLUME (BEAKER) 88.8 fL 79.4-94.8 (test code = 753) MEAN CORPUSCULAR HEMOGLOBIN 27.2 pg 25.6-32.2 (BEAKER) (test code = 751) MEAN CORPUSCULAR HEMOGLOBIN CONC 30.7 GM/DL 32.2-35.5 L (BEAKER) (test code = 752) RED CELL DISTRIBUTION WIDTH 14.7 % 11.7-14.4 H (BEAKER) (test code = 412) PLATELET COUNT (BEAKER) (test 235 K/CU MM 150-450 code = 756) MEAN PLATELET VOLUME (BEAKER) 9.8 fL 9.4-12.3 (test code = 754) NUCLEATED RED BLOOD CELLS 0 /100 WBC 0-0 (BEAKER) (test code = 413) NEUTROPHILS RELATIVE PERCENT 67 % (BEAKER) (test code = 429) LYMPHOCYTES RELATIVE PERCENT 25 % (BEAKER) (test code = 430) MONOCYTES RELATIVE PERCENT 6 % (BEAKER) (test code = 431) EOSINOPHILS RELATIVE PERCENT 1 % (BEAKER) (test code = 432) BASOPHILS RELATIVE PERCENT 1 % (BEAKER) (test code = 437) NEUTROPHILS ABSOLUTE COUNT 3.32 K/ L 1.56-6.13 (BEAKER) (test code = 670) LYMPHOCYTES ABSOLUTE COUNT 1.25 K/ L 1.18-3.74 (BEAKER) (test code = 414) MONOCYTES ABSOLUTE COUNT (BEAKER) 0.31 K/ L 0.24-0.36 (test code = 415) EOSINOPHILS ABSOLUTE COUNT 0.04 K/ L 0.04-0.36 (BEAKER) (test code = 416) BASOPHILS ABSOLUTE COUNT (BEAKER) 0.03 K/ L 0.01-0.08 (test code = 417) IMMATURE GRANULOCYTES-RELATIVE 1 % 0-1 PERCENT (BEAKER) (test code = 2801) XR Lower Extremity External [id number] 15:39:47This exam was not acquired at a Catholic facility and has not been interpreted by a Catholic Provider. The exam was imported into our imaging system.[place] MethodistPOCT-GLUCOSE [id number] 13:09:00 Test Item Value Reference Range Interpretation Comments POC-GLUCOSE METER 72 mg/dL 70-110 : TESTED A T [facility] 6720 (BEAKER) (test code = [facility], [facility]8) [address]: Public Transportation Inspector/Techni jamey ID = [id number] for WILL IS, GORGE POCT-GLUCOSE [id number] 08:42:00 Test Item Value Reference Range Interpretation Comments POC-GLUCOSE METER 87 mg/dL 70-110 : TESTED A T [facility] 6720 (BEAKER) (test code = [facility], [facility]8) 44[address]: Public Transportation Inspector/Techni jamey ID = [id number] for WILL IS, GORGE POCT-GLUCOSE [id number] 21:42:00 Test Item Value Reference Range Interpretation Comments POC-GLUCOSE METER 94 mg/dL 70-110 : TESTED A T [facility] 6720 (BEAKER) (test code = [facility], [facility]8) 628[address]: Public Transportation Inspector/Techni jamey ID = [id number] for ANGELASA JOHN PAULUDATU POCT-GLUCOSE [id number] 21:33:00 Test Item Value Reference Range Interpretation Comments POC-GLUCOSE METER 84 mg/dL 70-110 : TESTED A T [facility] 6720 (BEAKER) (test code = [facility], [facility]8) 99828: Public Transportation Inspector/Techni jamey ID = [id number] for ALEKS S, ABI POCT-GLUCOSE [id number] 12:49:00 Test Item Value Reference Range Interpretation Comments POC-GLUCOSE METER 139 mg/dL 70-110 H : TESTED A T [facility] 6720 (BEAKER) (test code = [facility], [facility]8) 12645: Public Transportation Inspector/Techni jamey ID = [id number] for REKHA ASHLEY, ABI POCT-GLUCOSE [id number] 10:22:00 Test Item Value Reference Range Interpretation Comments POC-GLUCOSE METER 96 mg/dL 70-110 : TESTED A T [facility] 6720 (BEAKER) (test code = [facility], 153) 18618: Public Transportation Inspector/Techni jamey ID = [id number] for Dayna Meadows POCT-GLUCOSE [id number] 08:42:00 Test Item Value Reference Range Interpretation Comments POC-GLUCOSE METER 94 mg/dL 70-110 : TESTED A T [facility] 6720 (BEAKER) (test code = [facility], 153) 75658: Public Transportation Inspector/Techni jamey ID = [id number] for ABI ESTES BLOOD [id number] 05:00:00 Test Item Value Reference Range Interpretation Comments CULTURE (BEAKER) (test No growth in 5 days code = 1095) POCT-GLUCOSE [id number] 21:02:00 Test Item Value Reference Range Interpretation Comments POC-GLUCOSE METER 117 mg/dL 70-110 H : TESTED A T [facility] 6720 (BEAKER) (test code = [facility], 153) 35416: Public Transportation Inspector/Techni jamey ID = [id number] for BLAIRE GARRETT POCT-GLUCOSE [id number] 16:26:00 Test Item Value Reference Range Interpretation Comments POC-GLUCOSE METER 121 mg/dL 70-110 H : TESTED A T [facility] 6720 (BEAKER) (test code = [facility], 153) 51268: Public Transportation Inspector/Techni jamey ID = [id number] for DERIK ALEXANDRA POCT-GLUCOSE [id number] 12:02:00 Test Item Value Reference Range Interpretation Comments POC-GLUCOSE METER 183 mg/dL 70-110 H : TESTED A T [facility] 6720 (BEAKER) (test code = [facility], 153) 33978: Public Transportation Inspector/Techni jamey ID = [id number] for DERIK ALEXANDRA POCT-GLUCOSE [id number] 07:57:00 Test Item Value Reference Range Interpretation Comments POC-GLUCOSE METER 113 mg/dL 70-110 H : TESTED A T [facility] 6720 (BEAKER) (test code = [facility], 153) 93758: Public Transportation Inspector/Techni jamey ID = [id number] for DERIK ALEXANDRA BASIC METABOLIC [id number] 05:44:00 Test Item Value Reference Range Interpretation Comments SODIUM (BEAKER) 136 meq/L 136-145 (test code = 381) POTASSIUM (BEAKER) 4.1 meq/L 3.5-5.1 (test code = 379) CHLORIDE (BEAKER) 104 meq/L 98-107 (test code = 382) CO2 (BEAKER) (test 27 meq/L 22-29 code = 355) BLOOD UREA NITROGEN 26 mg/dL 7-21 H (BEAKER) (test code = 354) CREATININE (BEAKER) 3.42 mg/dL 0.57-1.25 H (test code = 358) GLUCOSE RANDOM 103 mg/dL 70-105 (BEAKER) (test code = 652) CALCIUM (BEAKER) 7.1 mg/dL 8.4-10.2 L (test code = 697) EGFR (BEAKER) (test 13 mL/min/1.73 ESTIMA IDA GFR IS code = 1092) sq m NOT ACCURATE CREATININE CLEARANCE IN PREDICTING GLOMERULAR FILTRATION RATE . ESTIMATED GFR I S NOT APPLICABLE FOR DIALYSIS PATIEN TS. Public Transportation Inspector ID - PIAYA LCBC W/PLT COUNT & AUTO [id number] 05:08:00 Test Item Value Reference Range Interpretation Comments WHITE BLOOD CELL COUNT (BEAKER) 7.1 K/ L 3.5-10.5 (test code = 775) RED BLOOD CELL COUNT (BEAKER) 2.80 M/ L 3.93-5.22 L (test code = 761) HEMOGLOBIN (BEAKER) (test code = 7.8 GM/DL 11.2-15.7 L 410) HEMATOCRIT (BEAKER) (test code = 24.4 % 34.1-44.9 L 411) MEAN CORPUSCULAR VOLUME (BEAKER) 87.1 fL 79.4-94.8 (test code = 753) MEAN CORPUSCULAR HEMOGLOBIN 27.9 pg 25.6-32.2 (BEAKER) (test code = 751) MEAN CORPUSCULAR HEMOGLOBIN CONC 32.0 GM/DL 32.2-35.5 L (BEAKER) (test code = 752) RED CELL DISTRIBUTION WIDTH 14.6 % 11.7-14.4 H (BEAKER) (test code = 412) PLATELET COUNT (BEAKER) (test 197 K/CU MM 150-450 code = 756) MEAN PLATELET VOLUME (BEAKER) 9.9 fL 9.4-12.3 (test code = 754) NUCLEATED RED BLOOD CELLS 0 /100 WBC 0-0 (BEAKER) (test code = 413) NEUTROPHILS RELATIVE PERCENT 72 % (BEAKER) (test code = 429) LYMPHOCYTES RELATIVE PERCENT 19 % (BEAKER) (test code = 430) MONOCYTES RELATIVE PERCENT 6 % (BEAKER) (test code = 431) EOSINOPHILS RELATIVE PERCENT 1 % (BEAKER) (test code = 432) BASOPHILS RELATIVE PERCENT 0 % (BEAKER) (test code = 437) NEUTROPHILS ABSOLUTE COUNT 5.12 K/ L 1.56-6.13 (BEAKER) (test code = 670) LYMPHOCYTES ABSOLUTE COUNT 1.35 K/ L 1.18-3.74 (BEAKER) (test code = 414) MONOCYTES ABSOLUTE COUNT (BEAKER) 0.44 K/ L 0.24-0.36 H (test code = 415) EOSINOPHILS ABSOLUTE COUNT 0.10 K/ L 0.04-0.36 (BEAKER) (test code = 416) BASOPHILS ABSOLUTE COUNT (BEAKER) 0.03 K/ L 0.01-0.08 (test code = 417) IMMATURE GRANULOCYTES-RELATIVE 1 % 0-1 PERCENT (BEAKER) (test code = 2801) POCT-GLUCOSE [id number] 20:17:00 Test Item Value Reference Range Interpretation Comments POC-GLUCOSE METER 164 mg/dL 70-110 H : TESTED A T [facility] 6720 (BEAKER) (test code = [facility] [place], 1538) 99951: Public Transportation Inspector/Techni jamey ID = [id number] for [facility] HEMOGLOBIN AND [id number] 18:31:00 Test Item Value Reference Range Interpretation Comments HEMOGLOBIN (BEAKER) (test code = 8.5 GM/DL 11.2-15.7 L 410) HEMATOCRIT (BEAKER) (test code = 26.9 % 34.1-44.9 L 411) Public Transportation Inspector ID - [id number]-GLUCOSE [id number] 16:55:00 Test Item Value Reference Range Interpretation Comments POC-GLUCOSE METER 175 mg/dL 70-110 H : TESTED A T [facility] 6720 (BEAKER) (test code = [facility], 153) 69134: Public Transportation Inspector/Techni jamey ID = [id number] for REKHA ASHLEY, ABI POCT-GLUCOSE [id number] 12:00:00 Test Item Value Reference Range Interpretation Comments POC-GLUCOSE METER 188 mg/dL 70-110 H : TESTED A T [facility] 6720 (BEAKER) (test code = [facility], 1538) 96045: Public Transportation Inspector/Techni jamey ID = [id number] for REKHA ASHLEY, ABI POCT-GLUCOSE [id number] 08:10:00 Test Item Value Reference Range Interpretation Comments POC-GLUCOSE METER 98 mg/dL 70-110 : TESTED A T [facility] 6720 (BEAKER) (test code = [facility], 153) 01147: Public Transportation Inspector/Techni jamey ID = [id number] for ALEKS S, ABI POCT-GLUCOSE [id number] 20:30:00 Test Item Value Reference Range Interpretation Comments POC-GLUCOSE METER 136 mg/dL 70-110 H : TESTED A T [facility] 6720 (BEAKER) (test code = [facility], 153) 42070: Public Transportation Inspector/Techni jamey ID = [id number] for [place] LMORE, ALYSIA POCT-GLUCOSE [id number] 17:08:00 Test Item Value Reference Range Interpretation Comments POC-GLUCOSE METER 157 mg/dL 70-110 H : TESTED A T [facility] 6720 (BEAKER) (test code = [facility], 153) 89670: Public Transportation Inspector/Techni jamey ID = [id number] for BU RKS, ANIL POCT-GLUCOSE [id number] 11:35:00 Test Item Value Reference Range Interpretation Comments POC-GLUCOSE METER 97 mg/dL 70-110 : TESTED A T [facility] 6720 (BEAKER) (test code = [facility], 153) 85617: Public Transportation Inspector/Techni jamey ID = [id number] for HAROLDO S, ANIL HEPATIC FUNCTION [id number] 05:17:00 Test Item Value Reference Range Interpretation Comments TOTAL PROTEIN (BEAKER) (test code = 5.5 gm/dL 6.0-8.3 L 770) ALBUMIN (BEAKER) (test code = 1145) 2.5 g/dL 3.5-5.0 L BILIRUBIN TOTAL (BEAKER) (test code 0.5 mg/dL 0.2-1.2 = 377) BILIRUBIN DIRECT (BEAKER) (test 0.4 mg/dL 0.1-0.5 code = 706) ALKALINE PHOSPHATASE (BEAKER) (test 71 U/L 40-150 code = 346) AST (SGOT) (BEAKER) (test code = 20 U/L 5-34 353) ALT (SGPT) (BEAKER) (test code = < U/L 6-55 L 347) Public [employer] Inspector ID Cristina ROBERTSON WBASIC METABOLIC [id number] 05:13:00 Test Item Value Reference Range Interpretation Comments SODIUM (BEAKER) 137 meq/L 136-145 (test code = 381) POTASSIUM (BEAKER) 3.3 meq/L 3.5-5.1 L (test code = 379) CHLORIDE (BEAKER) 105 meq/L 98-107 (test code = 382) CO2 (BEAKER) (test 22 meq/L 22-29 code = 355) BLOOD UREA NITROGEN 22 mg/dL 7-21 H (BEAKER) (test code = 354) CREATININE (BEAKER) 3.48 mg/dL 0.57-1.25 H (test code = 358) GLUCOSE RANDOM 67 mg/dL 70-105 L (BEAKER) (test code = 652) CALCIUM (BEAKER) 7.2 mg/dL 8.4-10.2 L (test code = 697) EGFR (BEAKER) (test 13 mL/min/1.73 ESTIMA IDA GFR IS code = 1092) sq m NOT ACCURATE CREATININE CLEARANCE IN PREDICTING GLOMERULAR FILTRATION RATE . ESTIMATED GFR I S NOT APPLICABLE FOR DIALYSIS PATIEN TS. Public [employer] Inspector ID Cristina ROBERTSON WPROTHROMBIN TIME/[id number] 04:50:00 Test Item Value Reference Range Interpretation Comments PROTIME (BEAKER) (test code = 14.4 seconds 11.9-14.2 H 759) INR (BEAKER) (test code = 370) 1.2 <=5.9 Effective 11/15/2018: PT Reference Range ChangeNew: 11.9-14.2 Previous: 11.7- 14.7RECOMMENDED COUMADIN/WARFARIN INR THERAPY RANGESSTANDARD DOSE: 2.0-3.0 Includes: PROPHYLAXIS for venous thrombosis, systemic embolization; TREATMENT for venous thrombosis and/or pulmonary embolus.HIGH RISK: Target INR is2.5-3.5 for patients wiht mechanical heart valves.CBC W/PLT COUNT & AUTO [id number] 04:32:00 Test Item Value Reference Range Interpretation Comments WHITE BLOOD CELL COUNT (BEAKER) 5.5 K/ L 3.5-10.5 (test code = 775) RED BLOOD CELL COUNT (BEAKER) 3.07 M/ L 3.93-5.22 L (test code = 761) HEMOGLOBIN (BEAKER) (test code = 8.6 GM/DL 11.2-15.7 L 410) HEMATOCRIT (BEAKER) (test code = 26.5 % 34.1-44.9 L 411) MEAN CORPUSCULAR VOLUME (BEAKER) 86.3 fL 79.4-94.8 (test code = 753) MEAN CORPUSCULAR HEMOGLOBIN 28.0 pg 25.6-32.2 (BEAKER) (test code = 751) MEAN CORPUSCULAR HEMOGLOBIN CONC 32.5 GM/DL 32.2-35.5 (BEAKER) (test code = 752) RED CELL DISTRIBUTION WIDTH 14.9 % 11.7-14.4 H (BEAKER) (test code = 412) PLATELET COUNT (BEAKER) (test 213 K/CU MM 150-450 code = 756) MEAN PLATELET VOLUME (BEAKER) 9.0 fL 9.4-12.3 L (test code = 754) NUCLEATED RED BLOOD CELLS 0 /100 WBC 0-0 (BEAKER) (test code = 413) NEUTROPHILS RELATIVE PERCENT 68 % (BEAKER) (test code = 429) LYMPHOCYTES RELATIVE PERCENT 23 % (BEAKER) (test code = 430) MONOCYTES RELATIVE PERCENT 6 % (BEAKER) (test code = 431) EOSINOPHILS RELATIVE PERCENT 2 % (BEAKER) (test code = 432) BASOPHILS RELATIVE PERCENT 1 % (BEAKER) (test code = 437) NEUTROPHILS ABSOLUTE COUNT 3.76 K/ L 1.56-6.13 (BEAKER) (test code = 670) LYMPHOCYTES ABSOLUTE COUNT 1.27 K/ L 1.18-3.74 (BEAKER) (test code = 414) MONOCYTES ABSOLUTE COUNT (BEAKER) 0.35 K/ L 0.24-0.36 (test code = 415) EOSINOPHILS ABSOLUTE COUNT 0.09 K/ L 0.04-0.36 (BEAKER) (test code = 416) BASOPHILS ABSOLUTE COUNT (BEAKER) 0.04 K/ L 0.01-0.08 (test code = 417) IMMATURE GRANULOCYTES-RELATIVE 0 % 0-1 PERCENT (BEAKER) (test code = 2801) POCT-GLUCOSE [id number] 21:55:00 Test Item Value Reference Range Interpretation Comments POC-GLUCOSE METER 76 mg/dL 70-110 : TESTED A T [facility] 6720 (BEAKER) (test code = [facility], [facility]8) [address]: Public Transportation Inspector/Techni jamey ID = [id number] for ANA MITCHELL POCT-GLUCOSE [id number] 17:42:00 Test Item Value Reference Range Interpretation Comments POC-GLUCOSE METER 91 mg/dL 70-110 : TESTED A T [facility] 6720 (BEAKER) (test code = [facility], [facility]8) 48457: Public Transportation Inspector/Techni jamey ID = [id number] for DERIK PEDRO POCT-GLUCOSE [id number] 12:44:00 Test Item Value Reference Range Interpretation Comments POC-GLUCOSE METER 81 mg/dL 70-110 : TESTED A T [facility] 6720 (BEAKER) (test code = [facility], [facility]8) 220[address]: Public Transportation Inspector/Techni jamey ID = [id number] for DERIK PEDRO POCT-GLUCOSE [id number] 08:13:00 Test Item Value Reference Range Interpretation Comments POC-GLUCOSE METER 81 mg/dL 70-110 : TESTED A T [facility] 6720 (BEAKER) (test code = [facility], [facility]8) 45336: Public Transportation Inspector/Techni jamey ID = [id number] for DERIK PEDRO BASIC METABOLIC [id number] 05:48:00 Test Item Value Reference Range Interpretation Comments SODIUM (BEAKER) 136 meq/L 136-145 (test code = 381) POTASSIUM (BEAKER) 3.4 meq/L 3.5-5.1 L (test code = 379) CHLORIDE (BEAKER) 103 meq/L 98-107 (test code = 382) CO2 (BEAKER) (test 25 meq/L 22-29 code = 355) BLOOD UREA NITROGEN 15 mg/dL 7-21 (BEAKER) (test code = 354) CREATININE (BEAKER) 2.64 mg/dL 0.57-1.25 H (test code = 358) GLUCOSE RANDOM 87 mg/dL 70-105 (BEAKER) (test code = 652) CALCIUM (BEAKER) 7.3 mg/dL 8.4-10.2 L (test code = 697) EGFR (BEAKER) (test 18 mL/min/1.73 ESTIMA IDA GFR IS code = 1092) sq m NOT ACCURATE CREATININE CLEARANCE IN PREDICTING GLOMERULAR FILTRATION RATE . ESTIMATED GFR I S NOT APPLICABLE FOR DIALYSIS PATIEN TS. Public Transportation Inspector ID - JB LHEPATIC FUNCTION [id number] 05:48:00 Test Item Value Reference Range Interpretation Comments TOTAL PROTEIN (BEAKER) (test code = 5.5 gm/dL 6.0-8.3 L 770) ALBUMIN (BEAKER) (test code = 1145) 2.6 g/dL 3.5-5.0 L BILIRUBIN TOTAL (BEAKER) (test code 0.7 mg/dL 0.2-1.2 = 377) BILIRUBIN DIRECT (BEAKER) (test 0.4 mg/dL 0.1-0.5 code = 706) ALKALINE PHOSPHATASE (BEAKER) (test 72 U/L 40-150 code = 346) AST (SGOT) (BEAKER) (test code = 15 U/L 5-34 353) ALT (SGPT) (BEAKER) (test code = < U/L 6-55 L 347) Public Transportation Inspector ID - JB [id number] 05:47:00 Test Item Value Reference Range Interpretation Comments PHOSPHORUS (BEAKER) (test code = 2.6 mg/dL 2.3-4.7 604) Public Transportation Inspector ID - JB LPROTHROMBIN TIME/[id number] 05:20:00 Test Item Value Reference Range Interpretation Comments PROTIME (BEAKER) (test code = 14.5 seconds 11.9-14.2 H 759) INR (BEAKER) (test code = 370) 1.2 <=5.9 Effective 11/15/2018: PT Reference Range ChangeNew: 11.9-14.2 Previous: 11.7- 14.7RECOMMENDED COUMADIN/WARFARIN INR THERAPY RANGESSTANDARD DOSE: 2.0-3.0 Includes: PROPHYLAXIS for venous thrombosis, systemic embolization; TREATMENT for venous thrombosis and/or pulmonary embolus.HIGH RISK: Target INR is2.5-3.5 for patients wiht mechanical heart valves.CBC W/PLT COUNT & AUTO [id number] 05:11:00 Test Item Value Reference Range Interpretation Comments WHITE BLOOD CELL COUNT (BEAKER) 5.4 K/ L 3.5-10.5 (test code = 775) RED BLOOD CELL COUNT (BEAKER) 2.97 M/ L 3.93-5.22 L (test code = 761) HEMOGLOBIN (BEAKER) (test code = 8.5 GM/DL 11.2-15.7 L 410) HEMATOCRIT (BEAKER) (test code = 25.5 % 34.1-44.9 L 411) MEAN CORPUSCULAR VOLUME (BEAKER) 85.9 fL 79.4-94.8 (test code = 753) MEAN CORPUSCULAR HEMOGLOBIN 28.6 pg 25.6-32.2 (BEAKER) (test code = 751) MEAN CORPUSCULAR HEMOGLOBIN CONC 33.3 GM/DL 32.2-35.5 (BEAKER) (test code = 752) RED CELL DISTRIBUTION WIDTH 15.2 % 11.7-14.4 H (BEAKER) (test code = 412) PLATELET COUNT (BEAKER) (test 233 K/CU MM 150-450 code = 756) MEAN PLATELET VOLUME (BEAKER) 9.3 fL 9.4-12.3 L (test code = 754) NUCLEATED RED BLOOD CELLS 0 /100 WBC 0-0 (BEAKER) (test code = 413) NEUTROPHILS RELATIVE PERCENT 75 % (BEAKER) (test code = 429) LYMPHOCYTES RELATIVE PERCENT 16 % (BEAKER) (test code = 430) MONOCYTES RELATIVE PERCENT 7 % (BEAKER) (test code = 431) EOSINOPHILS RELATIVE PERCENT 1 % (BEAKER) (test code = 432) BASOPHILS RELATIVE PERCENT 1 % (BEAKER) (test code = 437) NEUTROPHILS ABSOLUTE COUNT 4.07 K/ L 1.56-6.13 (BEAKER) (test code = 670) LYMPHOCYTES ABSOLUTE COUNT 0.86 K/ L 1.18-3.74 L (BEAKER) (test code = 414) MONOCYTES ABSOLUTE COUNT (BEAKER) 0.36 K/ L 0.24-0.36 (test code = 415) EOSINOPHILS ABSOLUTE COUNT 0.06 K/ L 0.04-0.36 (BEAKER) (test code = 416) BASOPHILS ABSOLUTE COUNT (BEAKER) 0.03 K/ L 0.01-0.08 (test code = 417) IMMATURE GRANULOCYTES-RELATIVE 0 % 0-1 PERCENT (BEAKER) (test code = 2801) POCT-GLUCOSE [id number] 21:09:00 Test Item Value Reference Range Interpretation Comments POC-GLUCOSE METER 125 mg/dL 70-110 H : TESTED A T [facility] 6720 ([facility]) (test code = [facility], 1538) [address]1811: Public Transportation Inspector/Techni jamey ID = [id number] for NEGAR KHALIL POCT-GLUCOSE [id number] 17:10:00 Test Item Value Reference Range Interpretation Comments POC-GLUCOSE METER 93 mg/dL 70-110 : TESTED A T [facility] 6720 (AKER) (test code = [facility], 1538) 16747: Public Transportation Inspector/Techni jamey ID = [id number] for DERIK PEDRO HEMOGLOBIN [id number] 12:38:00 Test Item Value Reference Range Interpretation Comments HEMOGLOBIN A1C (BEAKER) (test code = 5.6 % 4.3-6.1 368) POCT-GLUCOSE [id number] 11:50:00 Test Item Value Reference Range Interpretation Comments POC-GLUCOSE METER 97 mg/dL 70-110 : TESTED A T [facility] 6720 (BEAKER) (test code = [facility], 1538) 58281: Public Transportation Inspector/Techni jamey ID = [id number] for [place] HEPATITIS B SURFACE [id number] 10:03:00 Test Item Value Reference Range Interpretation Comments HEPATITIS B SURFACE ANTIGEN (2) Nonreactive Nonreactive (AKER) (test code = 2585) Public Transportation Inspector ID - HANNAH CCBC W/PLT COUNT & AUTO [id number] 09:36:00 Test Item Value Reference Range Interpretation Comments WHITE BLOOD CELL COUNT (BEAKER) 8.6 K/ L 3.5-10.5 (test code = 775) RED BLOOD CELL COUNT (BEAKER) 3.06 M/ L 3.93-5.22 L (test code = 761) HEMOGLOBIN (BEAKER) (test code = 8.7 GM/DL 11.2-15.7 L 410) HEMATOCRIT (BEAKER) (test code = 26.4 % 34.1-44.9 L 411) MEAN CORPUSCULAR VOLUME (BEAKER) 86.3 fL 79.4-94.8 (test code = 753) MEAN CORPUSCULAR HEMOGLOBIN 28.4 pg 25.6-32.2 (BEAKER) (test code = 751) MEAN CORPUSCULAR HEMOGLOBIN CONC 33.0 GM/DL 32.2-35.5 (BEAKER) (test code = 752) RED CELL DISTRIBUTION WIDTH 15.0 % 11.7-14.4 H (BEAKER) (test code = 412) PLATELET COUNT (BEAKER) (test 289 K/CU MM 150-450 code = 756) MEAN PLATELET VOLUME (BEAKER) 9.4 fL 9.4-12.3 (test code = 754) NUCLEATED RED BLOOD CELLS 0 /100 WBC 0-0 (BEAKER) (test code = 413) NEUTROPHILS RELATIVE PERCENT 83 % (BEAKER) (test code = 429) LYMPHOCYTES RELATIVE PERCENT 12 % (BEAKER) (test code = 430) MONOCYTES RELATIVE PERCENT 5 % (BEAKER) (test code = 431) EOSINOPHILS RELATIVE PERCENT 1 % (BEAKER) (test code = 432) BASOPHILS RELATIVE PERCENT 0 % (BEAKER) (test code = 437) NEUTROPHILS ABSOLUTE COUNT 7.11 K/ L 1.56-6.13 H (BEAKER) (test code = 670) LYMPHOCYTES ABSOLUTE COUNT 0.99 K/ L 1.18-3.74 L (BEAKER) (test code = 414) MONOCYTES ABSOLUTE COUNT (BEAKER) 0.40 K/ L 0.24-0.36 H (test code = 415) EOSINOPHILS ABSOLUTE COUNT 0.05 K/ L 0.04-0.36 (BEAKER) (test code = 416) BASOPHILS ABSOLUTE COUNT (BEAKER) 0.03 K/ L 0.01-0.08 (test code = 417) IMMATURE GRANULOCYTES-RELATIVE 0 % 0-1 PERCENT (BEAKER) (test code = 2801) [id number] 09:33:00 Test Item Value Reference Range Interpretation Comments MAGNESIUM (BEAKER) (test code = 2.0 mg/dL 1.6-2.6 627) Public Transportation Inspector ID - HANNAH CPOCT-GLUCOSE [id number] 07:55:00 Test Item Value Reference Range Interpretation Comments POC-GLUCOSE METER 65 mg/dL 70-110 L : TESTED A T [facility] 6720 (BEAKER) (test code = [facility] [place], 1538) 65[address]: Public Transportation Inspector/Techni jamey ID = [id number] for DERIK PEDRO [id number] 05:36:00 Test Item Value Reference Range Interpretation Comments FERRITIN (BEAKER) (test code = 1973.82 ng/mL 5.00-275.00 H 361) Public Transportation Inspector ID - MINH MVITAMIN B12 AND [id number] 05:32:00 Test Item Value Reference Range Interpretation Comments VITAMIN B12 (BEAKER) (test code = 1334 pg/mL 213-816 H 774) FOLATE (BEAKER) (test code = 362) 6.40 ng/mL >=7.00 L Public Transportation Inspector ID - MINH MRAD, HIP, 2 VIEWS, [id number] 05:18:00Reason for exam:->fractureFINAL REPORT CLINICAL HISTORY: "Fracture" COMPARISON: None. FINDINGS: 2 views of the left hip are submitted. There is no acute fracture or malalignment. There are fixation screws in the femoral neck which appear properly positioned. Surgical joselin overlie the left lateral hip. Signed: Bri Landers [facility] Verified Date/Time: 09/26/2019 05:18:36 Electronically signedby: BRI LANDERS M.D. on 09/26/2019 05:18 AMIRON, TIBC, % SAT. (WITHOUT FERRITIN)2019-09-26 05:09:00 Test Item Value Reference Range Interpretation Comments IRON (BEAKER) (test code = 547) 16.0 ug/dL 40.0-160.0 L TOTAL IRON BINDING CAPACITY 119 ug/dL 250-450 L (BEAKER) (test code = 769) IRON % SATURATION (2) (BEAKER) 13 % 20-55 L (test code = 2590) Public Transportation Inspector ID - MINH MBASIC METABOLIC [id number] 02:38:00 Test Item Value Reference Range Interpretation Comments SODIUM (BEAKER) 135 meq/L 136-145 L (test code = 381) POTASSIUM (BEAKER) 3.5 meq/L 3.5-5.1 (test code = 379) CHLORIDE (BEAKER) 101 meq/L 98-107 (test code = 382) CO2 (BEAKER) (test 19 meq/L 22-29 L code = 355) BLOOD UREA NITROGEN 45 mg/dL 7-21 H (BEAKER) (test code = 354) CREATININE (BEAKER) 5.27 mg/dL 0.57-1.25 H (test code = 358) GLUCOSE RANDOM 65 mg/dL 70-105 L (BEAKER) (test code = 652) CALCIUM (BEAKER) 7.7 mg/dL 8.4-10.2 L (test code = 697) EGFR (BEAKER) (test 8 mL/min/1.73 ESTIMAT ED GFR IS code = 1092) sq m NOT ACCURATE CREATININE CLEARANCE IN PREDICTING GLOMERULAR FILTRATION RATE . ESTIMATED GFR I S NOT APPLICABLE FOR DIALYSIS PATIEN TS. Public Transportation Inspector ID - MINH MPROTHROMBIN TIME/[id number] 02:36:00 Test Item Value Reference Range Interpretation Comments PROTIME (BEAKER) (test code = 14.2 seconds 11.9-14.2 759) INR (BEAKER) (test code = 370) 1.1 <=5.9 Effective 11/15/2018: PT Reference Range ChangeNew: 11.9-14.2 Previous: 11.7- 14.7RECOMMENDED COUMADIN/WARFARIN INR THERAPY RANGESSTANDARD DOSE: 2.0-3.0 Includes: PROPHYLAXIS for venous thrombosis, systemic embolization; TREATMENT for venous thrombosis and/or pulmonary embolus.HIGH RISK: Target INR is2.5-3.5 for patients wiht mechanical heart valves.HEPATIC FUNCTION [id number] 02:32:00 Test Item Value Reference Range Interpretation Comments TOTAL PROTEIN (BEAKER) (test code = 6.0 gm/dL 6.0-8.3 770) ALBUMIN (BEAKER) (test code = 1145) 2.8 g/dL 3.5-5.0 L BILIRUBIN TOTAL (BEAKER) (test code 0.4 mg/dL 0.2-1.2 = 377) BILIRUBIN DIRECT (BEAKER) (test 0.2 mg/dL 0.1-0.5 code = 706) ALKALINE PHOSPHATASE (BEAKER) (test 82 U/L 40-150 code = 346) AST (SGOT) (BEAKER) (test code = 18 U/L 5-34 353) ALT (SGPT) (BEAKER) (test code = 6 U/L 6-55 347) Public Transportation Inspector ID - MINH MCBC W/PLT COUNT & AUTO [id number] 02:20:00 Test Item Value Reference Range Interpretation Comments WHITE BLOOD CELL COUNT (BEAKER) 7.9 K/ L 3.5-10.5 (test code = 775) RED BLOOD CELL COUNT (BEAKER) 2.25 M/ L 3.93-5.22 L (test code = 761) HEMOGLOBIN (BEAKER) (test code = 6.1 GM/DL 11.2-15.7 L 410) HEMATOCRIT (BEAKER) (test code = 19.3 % 34.1-44.9 L 411) MEAN CORPUSCULAR VOLUME (BEAKER) 85.8 fL 79.4-94.8 (test code = 753) MEAN CORPUSCULAR HEMOGLOBIN 27.1 pg 25.6-32.2 (BEAKER) (test code = 751) MEAN CORPUSCULAR HEMOGLOBIN CONC 31.6 GM/DL 32.2-35.5 L (BEAKER) (test code = 752) RED CELL DISTRIBUTION WIDTH 16.4 % 11.7-14.4 H (BEAKER) (test code = 412) PLATELET COUNT (BEAKER) (test 302 K/CU MM 150-450 code = 756) MEAN PLATELET VOLUME (BEAKER) 8.8 fL 9.4-12.3 L (test code = 754) NUCLEATED RED BLOOD CELLS 0 /100 WBC 0-0 (BEAKER) (test code = 413) NEUTROPHILS RELATIVE PERCENT 78 % (BEAKER) (test code = 429) LYMPHOCYTES RELATIVE PERCENT 15 % (BEAKER) (test code = 430) MONOCYTES RELATIVE PERCENT 5 % (BEAKER) (test code = 431) EOSINOPHILS RELATIVE PERCENT 1 % (BEAKER) (test code = 432) BASOPHILS RELATIVE PERCENT 1 % (BEAKER) (test code = 437) NEUTROPHILS ABSOLUTE COUNT 6.16 K/ L 1.56-6.13 H (BEAKER) (test code = 670) LYMPHOCYTES ABSOLUTE COUNT 1.22 K/ L 1.18-3.74 (BEAKER) (test code = 414) MONOCYTES ABSOLUTE COUNT (BEAKER) 0.37 K/ L 0.24-0.36 H (test code = 415) EOSINOPHILS ABSOLUTE COUNT 0.08 K/ L 0.04-0.36 (BEAKER) (test code = 416) BASOPHILS ABSOLUTE COUNT (BEAKER) 0.04 K/ L 0.01-0.08 (test code = 417) IMMATURE GRANULOCYTES-RELATIVE 1 % 0-1 PERCENT (BEAKER) (test code = 2801) COMPREHENSIVE METABOLIC [id number] 23:10:00 Test Item Value Reference Range Interpretation Comments TOTAL PROTEIN 6.0 gm/dL 6.0-8.3 (BEAKER) (test code = 770) ALBUMIN (BEAKER) 2.8 g/dL 3.5-5.0 L (test code = 1145) ALKALINE PHOSPHATASE 88 U/L 40-150 (BEAKER) (test code = 346) BILIRUBIN TOTAL 0.5 mg/dL 0.2-1.2 (BEAKER) (test code = 377) SODIUM (BEAKER) (test 134 meq/L 136-145 L code = 381) POTASSIUM (BEAKER) 3.1 meq/L 3.5-5.1 L (test code = 379) CHLORIDE (BEAKER) 101 meq/L 98-107 (test code = 382) CO2 (BEAKER) (test 19 meq/L 22-29 L code = 355) BLOOD UREA NITROGEN 45 mg/dL 7-21 H (BEAKER) (test code = 354) CREATININE (BEAKER) 5.17 mg/dL 0.57-1.25 H (test code = 358) GLUCOSE RANDOM 77 mg/dL 70-105 (BEAKER) (test code = 652) CALCIUM (BEAKER) 7.6 mg/dL 8.4-10.2 L (test code = 697) AST (SGOT) (BEAKER) 20 U/L 5-34 (test code = 353) ALT (SGPT) (BEAKER) < U/L 6-55 L (test code = 347) EGFR (BEAKER) (test 8 mL/min/1.73 ESTIMAT ED GFR IS code = 1092) sq m NOT ACCURATE CREATININE CLEARANCE IN PREDICTING GLOMERULAR FILTRATION RATE . ESTIMATED GFR I S NOT APPLICABLE FOR DIALYSIS PATIEN TS. Public Transportation Inspector ID - BSPROTHROMBIN TIME/[id number] 23:07:00 Test Item Value Reference Range Interpretation Comments PROTIME (BEAKER) (test code = 14.0 seconds 11.9-14.2 759) INR (BEAKER) (test code = 370) 1.1 <=5.9 Effective 11/15/2018: PT Reference Range ChangeNew: 11.9-14.2 Previous: 11.7- 14.7RECOMMENDED COUMADIN/WARFARIN INR THERAPY RANGESSTANDARD DOSE: 2.0-3.0 Includes: PROPHYLAXIS for venous thrombosis, systemic embolization; TREATMENT for venous thrombosis and/or pulmonary embolus.HIGH RISK: Target INR is2.5-3.5 for patients wiht mechanical heart valves.CBC W/PLT COUNT & AUTO [id number] 22:49:00 Test Item Value Reference Range Interpretation Comments WHITE BLOOD CELL COUNT (BEAKER) 8.5 K/ L 3.5-10.5 (test code = 775) RED BLOOD CELL COUNT (BEAKER) 2.29 M/ L 3.93-5.22 L (test code = 761) HEMOGLOBIN (BEAKER) (test code = 6.1 GM/DL 11.2-15.7 L 410) HEMATOCRIT (BEAKER) (test code = 19.5 % 34.1-44.9 L 411) MEAN CORPUSCULAR VOLUME (BEAKER) 85.2 fL 79.4-94.8 (test code = 753) MEAN CORPUSCULAR HEMOGLOBIN 26.6 pg 25.6-32.2 (BEAKER) (test code = 751) MEAN CORPUSCULAR HEMOGLOBIN CONC 31.3 GM/DL 32.2-35.5 L (BEAKER) (test code = 752) RED CELL DISTRIBUTION WIDTH 16.2 % 11.7-14.4 H (BEAKER) (test code = 412) PLATELET COUNT (BEAKER) (test 334 K/CU MM 150-450 code = 756) MEAN PLATELET VOLUME (BEAKER) 9.3 fL 9.4-12.3 L (test code = 754) NUCLEATED RED BLOOD CELLS 0 /100 WBC 0-0 (BEAKER) (test code = 413) NEUTROPHILS RELATIVE PERCENT 81 % (BEAKER) (test code = 429) LYMPHOCYTES RELATIVE PERCENT 14 % (BEAKER) (test code = 430) MONOCYTES RELATIVE PERCENT 4 % (BEAKER) (test code = 431) EOSINOPHILS RELATIVE PERCENT 1 % (BEAKER) (test code = 432) BASOPHILS RELATIVE PERCENT 1 % (BEAKER) (test code = 437) NEUTROPHILS ABSOLUTE COUNT 6.89 K/ L 1.56-6.13 H (BEAKER) (test code = 670) LYMPHOCYTES ABSOLUTE COUNT 1.17 K/ L 1.18-3.74 L (BEAKER) (test code = 414) MONOCYTES ABSOLUTE COUNT (BEAKER) 0.32 K/ L 0.24-0.36 (test code = 415) EOSINOPHILS ABSOLUTE COUNT 0.04 K/ L 0.04-0.36 (BEAKER) (test code = 416) BASOPHILS ABSOLUTE COUNT (BEAKER) 0.04 K/ L 0.01-0.08 (test code = 417) IMMATURE GRANULOCYTES-RELATIVE 1 % 0-1 PERCENT (BEAKER) (test code = 2801) POCT-GLUCOSE [id number] 20:35:00 Test Item Value Reference Range Interpretation Comments POC-GLUCOSE METER 102 mg/dL 70-110 : TESTED A T [facility] 6720 (BEAKER) (test code = [place], 1538) [address]: Public Transportation Inspector/Techni jamey ID = [id number] for [facility] POC [id number] 17:04:07 Test Item Value Reference Range Interpretation Comments POC glucose (test code = 104 mg/dL 65-99 H Ope rator Name: [id number]) [facility] AishaDe vice ID: [id number] able: [facility] Notified information systems security manager Interpretation (test Abnormal code = 46019-5) [place] [facility] surface [id number] 19:50:34 Test Item Value Reference Range Interpretation Comments Hepatitis B surface Ag (test Non-reactive Non-reactive code = 5195-3) [place] MethodistBasic metabolic [id number] 14:08:24 Test Item Value Reference Range Interpretation Comments Sodium (test code = 2951-2) 133 135- 148 mEq/L L Potassium (test code = 2823-3) 3.7 3.5- 5.0 mEq/L Chloride (test code = 2075-0) 95 98- 112 mEq/L L CO2 (test code = 2027-9) 23 24- 31 mEq/L L Anion gap (test code = 36942-7) 15@ANIO 7- 15 mEq/L BUN (test code = 3094-0) 35 mg/dL 8-23 H Creatinine (test code = 2160-0) 4.76 mg/dL 0.5-0.9 H Glucose (test code = 2345-7) 80 mg/dL 65-99 Calcium (test code = 39053-5) 8.4 mg/dL 8.8-10.2 L Lab Interpretation (test code = Abnormal 87954-7) [place] MethodistEstimated [id number] 14:08:23 Test Item Value Reference Range Interpretation Comments Estimated GFR (test 8 mL/min/1.73 m2 Inge díaz Units code = 5488) InterpretationG 1 >=90 Melvina l or highG2 60-89 Mildly decrease dG3a 45-59 Mil dly to moderately decr gsbugW4c 30-44 Moderately to s everely decreasedG4 15-29 Severe ly decreasedG5 <15 Kidney nicola lureThe eGFR was calcul ated using the Chron ic Kidney Disease Epidemiology Collaboration ( CKD-EPI) equation. Interpretation is based on recommendati ons of the National Ki dney Foundation-Kidn ey Disease Outcome s Quality Initiat siddharth (NKF-KDOQI) pub lished in 2013. Lab Interpretation Abnormal (test code = 17994-7) [facility] MethodistCBC with platelet and [id number] 13:27:24 Test Item Value Reference Range Interpretation Comments WBC (test code = 23971-5) 5.56 4.50- 11.00 k/uL RBC (test code = 52004-0) 3.30 m/uL 4.2-5.5 L HGB (test code = 718-7) 8.8 g/dL 12-16 L HCT (test code = 4544-3) 28.2 % 37-47 L MCV (test code = 787-2) 85.5 fL 82-100 MCH (test code = 785-6) 26.7 pg 27-34 L MCHC (test code = 786-4) 31.2 g/dL 31-37 RDW - SD (test code = 46.1 fL 37-55 20469-9) MPV (test code = 28634-4) 9.7 fL 8.8-13.2 Platelet count (test code 340 150- 400 k/uL = 66774-3) Nucleated RBC (test code 0.00 /100 WBC = 74156-6) Neutrophils (test code = 62.7 % 39-69 96529-9) Lymphocytes (test code = 26.6 % 25-45 28798-8) Monocytes (test code = 6.8 % 0-10 13921-5) Eosinophils (test code = 2.5 % 0-5 65901-2) Basophils (test code = 0.9 % 0-1 12981-0) Immature granulocytes 0.5 % 0-1 "Immat ure (test code = 93527-6) granul ocytes" (promyelocytes, myelocytes, metamyelocytes) Lab Interpretation (test Abnormal code = 65847-9) [facility] [id number] 14:37:00 Test Item Value Reference Range Interpretation Comments WBC (test code = 19255-1) 8.65 4.50- 11.00 k/uL RBC (test code = 80384-0) 3.17 m/uL 4.2-5.5 L HGB (test code = 718-7) 8.3 g/dL 12-16 L HCT (test code = 4544-3) 27.5 % 37-47 L MCV (test code = 787-2) 86.8 fL 82-100 MCH (test code = 785-6) 26.2 pg 27-34 L MCHC (test code = 786-4) 30.2 g/dL 31-37 L RDW - SD (test code = 34148-9) 46.7 fL 37-55 MPV (test code = 33259-1) 10.2 fL 8.8-13.2 Platelet count (test code = 298 150- 400 k/uL 59377-1) Nucleated RBC (test code = 0.00 /100 WBC 92612-5) Lab Interpretation (test code = Abnormal 92242-3) [facility] [id number] 14:32:53 Test Item Value Reference Range Interpretation Comments Magnesium (test code = 95855-6) 2.0 mg/dL 1.6-2.4 [facility] AminPhosphorus [id number] 14:32:53 Test Item Value Reference Range Interpretation Comments Phosphorus (test code = 2777-1) 5.5 mg/dL 2.4-4.5 H Lab Interpretation (test code = Abnormal 20196-3) [place] > I [id number] 01:48:48Hm Interface, Radiology Results - 09/07/2019 8:51 PM CDTEXAMINATION: OR [place] > 1 HOURC-arm fluoroscopy was requested in OR. Location: [facility] - [facility]12 Procedure: LEFT HIP PINNING Start Time: 729 End Time: 914 Fluoro Time: 1MIN 27SECDose (mGy): 6.98mGyTech(s): jmIMPRESSION:Separate operative report will be issued by the physician performing the procedure.[id number] [id number] 13:41:10SoMatias silva Jr., CRNA 09/07/2019 8:42 AMAirwayDate/Time: 09/07/2019 8:05 AMPerformed by: Matias Douglas Jr. CRNAAuthorized by: Jm Magana MD Location: ORUrgency: ElectiveDifficult Airway: No Anesthesiologist: Jm Magana MDResident/WAREHOUSE MAN/AA: Matias Douglas Jr. CRNAPerformed by: resident/WAREHOUSE MAN/AAPreoxygenated with 100% O2: Yes C-spine Precautions Maintained Throughout: Yes Mask Ventilation: Easy maskFinal Airway Type: Endotracheal airwayFinal Endotracheal Airway: ETTCuffed: Yes Technique Used: Direct laryngoscopyDevices/Methods Used in Placement: Intubating styletInsertion Site: OralBlade Type: MillerLaryngoscope Blade/Videolaryngoscope Blade Size: 2ETT Size (mm): 6.0Cuff at minimum occlusion pressure: Yes Measured from: TeethETT to Teeth (cm): 21Placement Verified by: CO2 detection, direct visualization and equal breath so unds Laryngoscopic view: Grade I - full view of glottisRapid Sequence Induction (RSI): No Modified RSI: No Number of Attempts at Approach: 1[facility] MethodistP[facility] panel 12:21:50 Test Item Value Reference Range Interpretation Comments POC sodium (test code = 131 mmol/L 135-148 L 2947-0) POC potassium (test 4.0 mmol/L 3.5-5 code = 6298-4) POC hematocrit (test 30 % 37-47 L code = 4544-3) POC glucose (test code 132 mg/dL 65-99 H Opera tor Name: Lamont = 2339-0) Dwain ID: [id number] Lab Interpretation Abnormal (test code = 21673-5) [place] MethodistFerritin [id number] 12:16:11 Test Item Value Reference Range Interpretation Comments Ferritin level (test code = 2276-4) 928 ng/mL 13-150 H Lab Interpretation (test code = Abnormal 73717-4) [place] MethodistPartial thromboplastin time, [id number] 12:13:51 Test Item Value Reference Range Interpretation Comments PTT (test code = 36.4 23.0- 36.0 sec H PTT thera peutic range 29242-6) for unfractiona ida heparin is61.0- 112.0 seconds which corresponds to Anti-Xa0.3-0.7 U/ml. Lab Interpretation Abnormal (test code = 92528-7) [place] MethodistProthrombin time with [id number] 12:13:35 Test Item Value Reference Range Interpretation Comments Prothrombin time (test 14.6 11.5- 14.5 sec H code = 5902-2) INR (test code = 1.1 [facility] 77[facility]) Normalized Rati o (INR) is a therapeuti c monitoring tool for patients who ar e stable on oral anticoagulant t herapy. An INR of 2.0-3 .0 is suggested for d eep vein thrombosis/pulm onary embolism. Lab Interpretation Abnormal (test code = 84254-7) [place] MethodistTotal iron binding [id number] 12:11:51 Test Item Value Reference Range Interpretation Comments Iron level (test code = 2498-4) 31 ug/dL 37-145 L Iron binding capacity (test code = 166 ug/dL 200-400 L 2500-7) % Saturation (test code = 2502-3) 18.7 % 15-38 Lab Interpretation (test code = Abnormal 98655-5) [place] MethodistECG 12 [id number] 18:38:49 Test Item Value Reference Range Interpretation Comments Ventricular rate (test 77 code = 253) Atrial rate (test code 77 = 255) RI interval (test code 130 = 266) QRSD interval (test 90 code = 260) QT interval (test code 380 = 264) QTC interval (test code 430 = 265) P axis 1 (test code = 47 267) QRS axis 1 (test code = 10 268) T wave axis (test code 127 = 270) EKG impression (test Normal sinus code = 273) rhythm-Minimal voltage criteria for LVH, may be normal variant ( [place] product )-ST & T wave abnormality, consider lateral ischemia-Abnormal ECG-In automated comparison with ECG of 19-AUG-2019 09:26,-No significant change was found- Bai MethodistAlbumin tcpeg9867-10-29 12:02:27 Test Item Value Reference Range Interpretation Comments Albumin (test code = 1751-7) 2.5 g/dL 3.5-5 L Lab Interpretation (test code = Abnormal 03512-8) Bai MethodistXR Hip 2-3 View Znbc8439-94-24 19:16:47Hm Interface, Radiology Results Incoming - 09/05/2019 2:19 PM CDTEXAMINATION: XR HIP 2-3 VIEWS LEFTC LINICAL HISTORY: Left hip fractureCOMPARISON: None available.IMPRESSION: 1. Approximately age and gender appropriate mineralization of the osseous structures. 2. Prominent rim osteophyte formation versus a mildly impacted subcapital femoral neck fracture, advanced imaging as indicated. Mild left hip o steoarthritis. There is no additional suspected acute fracture or dislocation.3. Vascular consultations are present.[facility]-[id number] MethodistXR Pelvis 1 Or 2 Ub5733-28-07 19:15:32Hm Interface, Radiology Results Incoming - 09/05/2019 2:18 PM CDTPROCEDURE: XR PELVIS 1 OR 2 VWCLINICAL HISTORY: hip painCOMPARISON: None.TECHNIQUE: Multiple AP views of the pelvis are submitted.FINDINGS: No fracture, dislocation, periosteal reaction or bone destruction is identified. No acute bony abnormality is seen. Minimal degenerative changes are seen within the left and right hips. Small osteophytes are present.The pubic rami are intact. SI joints unremarkable. Minimal degenerative changes are present. If the patient's symptoms persist or deteriorate, follow-up radiograph in 10 days time is recommended, if clinically indicated.IMPRESSION: 1. There is no acute fracture or subluxation. 2. There are minimal degenerative changes seen within the left and right hip joints.STJO-[id number].[place] MethodistXR Femur 2 Vw Bfno3269-23-06 19:15:31Hm Interface, Radiology Results - 09/05/2019 2:18 PM CDTEXAMINATION: XR FEMUR 2 VW LEFTCLINICAL HISTORY: Fracture femurCOMPARISON: None.FINDINGS:There is a subcapital femoral neck fracture, with slight impaction and valgus angulation noted.Moderate vascular calcifications are present.IMPRESSION:Left-sided Subcapital femoral neck fracture.OPC-[id number] MethodistType and edppsb7974-33-37 12:41:00 Test Item Value Reference Range Interpretation Comments ABO grouping (test code = 883-9) O Rh type (test code = 61407-7) POS Antibody screen (gel) (test code = NEG 890-4) [place] LizetteistUrine vehuopj4236-77-19 14:52:00 Test Item Value Reference Range Interpretation Comments Urine culture SEE NOTE CULTURE, URI NE, (test code = ROUTINE Aram ro 630-4) Number: [id number] Test Status: Final Specimen Source: URINE Specimen Qualit y: Adequate Resul t: Multi ple organisms prese nt, each less than 10,000 CFU/mL. These organisms , commonly found on external and internal genitalia, are considered to be colonizers. No further testing performed. YAMIL (test code = FASTING:UNKNOWNFASTI YAMIL) NG: UNKNOWN RAC (test code = Performing RAC) Organization Information: Site ID: [facility] Address: [address] [place] [id number] Director: Ed Bai MethodistURINALYSIS, COMPLETE, WITH REFLEX TO [id number] 14:52:00 Test Item Value Reference Range Interpretation Comments Color, UA (test code = YELLOW YELLOW 5778-6) Appearance (test code = CLOUDY CLEAR A 5767-9) Specific gravity, urine 1.024 1.001-1.035 (test code = 5811-5) pH, urine (test code = < OR = 5.0 5.0-8.0 5803-2) Glucose, urine (test 1+ NEGATIVE A code = 54459-5) Bilirubin, UA (test code NEGATIVE NEGATIVE = 5770-3) Ketones, UA (test code = NEGATIVE NEGATIVE 2514-8) Occult blood, urine NEGATIVE NEGATIVE (test code = 5794-3) Protein, UA (test code = 3+ NEGATIVE A 91316-9) Nitrite, UA (test code = NEGATIVE NEGATIVE 5802-4) Leukocyte esterase, UA TRACE NEGATIVE A (test code = 5799-2) WBC, UA (test code = 20-40 < OR = 5 /HPF A 5821-4) RBC, UA (test code = 0-2 < OR = 2 /HPF 06176-2) Squamous epithelial 0-5 < OR = 5 /HPF cells, UA (test code = 07931-1) Bacteria, UA (test code NONE SEEN NONE SEEN /HPF = 5769-5) Hyaline casts, UA (test NONE SEEN NONE SEEN /LPF code = 5796-8) Reflex (test code = CULTURE INDICATED - 630-4) RESULTS TO FOLLOW YAMIL (test code = YAMIL) FASTING:UNKNOWNFASTIN G: UNKNOWN RAC (test code = RAC) Performing Organization Information: Site ID: [facility]GA [facility] Address: [address] [place] [id number] Director: Ed Roldan Lab Interpretation (test Abnormal code = 43181-6) [place] MethodistXR Chest 2 Sk2828-36-15 22:00:35Hm Interface, Radiology Results Incoming - 08/27/2019 5:03 PM CDTEXAMINATION: XR CHEST 2 VWHISTORY: 79 years Female R05 Cough, Cough new onsetCOMPARISON: AP view the chest dated 08/12/2019.FINDINGS: A right IJ dialysis catheter has been placed with the tips projected over the right atrium. The costophrenic sulci are sharp laterally without definite effusion. The cardiac silhouette is enlarged. There are mild atherosclerotic ossifications in the aortic knob. The lungs are clear. No acute osseousabnormality is identified in the chest.IMPRESSION: No acute intrathoracic abnormality identified.[facility]-[id number] MethodistManual rmauducuaqrz4395-73-03 16:16:54 Test Item Value Reference Range Interpretation Comments Manual differential (test code = PERFORMED 72966-1) Neutrophils (test code = 80.0 % 39-69 H 81649-5) Lymphocytes (test code = 15.0 % 25-45 L 11807-5) Monocytes (test code = 57857-2) 2.0 % 0-10 Eosinophils (test code = 3.0 % 0-5 28266-1) Basophils (test code = 27609-9) 0.0 % 0-1 Metamyelocytes (test code = 0 % 740-1) Promyelocytes (test code = 0 % 783-1) Platelet slide review (test code Yael adequate = 76902-8) Anisocytosis (test code = 702-1) Moderate Polychromasia (test code = Moderate 28462-3) Ovalocytes (test code = 774-0) Moderate Lab Interpretation (test code = Abnormal 65824-6) [place] MethodistCv stress qykb5893-15-13 01:58:41 Test Item Value Reference Range Interpretation Comments Resting HR (test code 77 = 2170360171) Resting BP (test code 114 = 6075609922) Peak MET Achieved 1 (test code = 2590182109) Protocol Name (test REGADENO code = 1516200525) Time in Exercise 00:01:00 Phase (test code = 3254774457) Max Systolic BP (test 120 code = 1685001985) Max Diastolic BP 60 (test code = 0605916066) Max Heart Rate (test 90 code = 4732149243) Max Predicted Heart 143 Rate (test code = 9705273527) Target HR Formula (220 - Age)*100% (test code = 0819326119) Test Indication (test CHF EVALUATION FOR code = 3484631876) ISCHEMIA Arrhy During Ex (test code = 3391742413) ECG Interp Before EX (test code = 2178354401) ECG Interp During Ex (test code = 7601871099) Ex Summary Comment (test code = 5970939326) Overall HR Response to Exercise (test code = 0431976929) Overall BP Response To Exercise (test code = 5703286641) Reason for Protocol Complete Termination (test code = 9240427662) Stress Test Waveform interpreted in Impression (test code report associated with = 1219867702) image study. No interpretation is provided as part of this Stress ECG report.--Electronically Signed By Farheen Gibbs MD ([id number]), advertising editor Jacqueline Rice ([id number]) on 08/17/2019 7:58:38 PM [facility] myocardial qufwichih4307-37-37 17:46:00Interface, Radiology Results In - 08/17/2019 11:46 AM [facility] Nuclear Cardiology and Cardiac CT [address] [place] [address] Myocardial Perfusion Imaging Report Stress ECG tracings are available in [email or web address], [employer] and [employer] All ECG interpretations are included in this reportPat.Name: SEAN MOULTON.ID: [id number] St.Date: 08/17/2019 Refer.MD: DOROTA MURILLO MDExam Time: 8:39:00 AM Study Type:Myocardial Perfusion ImagingHeight: 58inBSA: 1.33 m2 Age: 7 1940,79Y Sex: FEMALE BP: 114/57 HR: 76 bpm Nuclear Tech:STEPHANIE Barrett CNMTPat. Stat.:Inpatient Room: [facility] A Tape Vol: 19.86, Nuclear Event ID:[id number] Order ID: [id number] Reason for Study:CHF, Evaluate for IschemiaHistory / Clinical:Congestive heart failure, Diabetes, Hypertension,Peripheral vascular disease, Renal insufficiency/failure, CarotidstenosisProcedures: Single Day Stress / RestRisk Factors:Diabetes, HypertensionClinical Symptoms:Regadenoson Physical Exam:S1, S2 SUMMARY: SCINTIGRAPHICRESULTSPerfusion Defect Size (% LV) 8% Total 8% Ischemia 0% ScarLeft Ventricular Perfusion ResultsThere is a moderate apical perfusion defect during stress whichimproves with rest imaging. Gated SPECT ResultsThe post stress left ventricular ejection fraction is 48% withhypokinesis of all hypoperfused abel. Left ventricular end-diastolicvolume is 66 ml; end-systolic volume is 34 ml. The left ventricle isof normal size at stress and rest. ConclusionAbnormal regadenoson Tc-99m tetrofosmin myocardial perfusion studycompatible with ischemia in the apical left anterior descendingcoronary artery vascular territory. The LVEF is normal. Stress EKGwas abnormal. CT Findings:Coronary calcification is present. The ascending and descending aortaare normal in size. There is a small perficardial effusion . Limitedlung aguilar show moderate right pleural effusion and small leftpleural effusion. Ground glass opacity in the right middle lobe ofthe lung. CommentsThe study results indicate a intermediate (1%-2%) annual risk for acardiac or non- fatal myocardial infarction. Study Quality/ArtifactsThe study quality is good. Comparison to Previous StudyNone available. ----FINDINGS: -----STRESS: Baseline Vital Signs: Intervention Regadenoson 0.4mg/5mlIV over 10 seconds followed by radiotracer injection and 5ml salineflushBaseline EKG Normal Sinus Rhythm, Left ventricular hypertrophy,Prolonged QTHeart Rate: 76 Atropine Administered: 0Rest BP: 114/57 Stress Test Results:Target HR: 122 Symptoms and Complications:Stress-induced Arrhythmias NoneReason for Stopping Test: As per Regadenoson protocolSymptoms During Test Shortness of breathComplications NoneOther: Normal heart rate response to pharmacological stress,Normal blood pressure response to pharmacological stressECG / Stress Interpretation: Abnormal regadenoson stress testcompatible with myocardial ischemia., Ischemic ST segment changesoccurred in leads V4-V6 beginning 1, 00 minutes into exerciseregadenoson at a heart rate of 85 beats/ minute.Signed 08/17/2019 11:46 AMFarheen Gibbs MDWadmalaw Island MethodistCT Head Wo Qcurbwma9717-06-31 17:26:07Hm Interface, Radiology Results Incoming 08/16/2019 11:29 AM CSTEXAMINATION: CT HEAD WO CONTRASTCLINICAL HISTORY: Altered level of consciousness (LOC) unexplainedCOMPARISON: None.FINDINGS: There is generalized brain parenchymal involution atrophy with white matter nonspecific hypodensities. There is mild nonspecific ventriculomegaly most likely related to central volume loss. There are chronic lacunar less than 5 mm infarctions in the left thalamus and left lentiform nucleus.There is no evidence of acute hemorrhage, mass lesion, or midline shift. The romano-white matter differentiation is preserved with no evidence of acute territorial infarction. There is no extra-axial fluid collection.Visualized paranasal sinuses and mastoid air cells are clear. Bones, orbits, and soft tissues are unremarkableAll CT images were acquired using low-dose technique with automated exposure control.IMPRESSION: No acute intracranial hemorrhage or mass effect.HMWB-[id number] MethodistHepatitis B core antibody ijpbg6119-51-98 18:13:53 Test Item Value Reference Range Interpretation Comments Hepatitis B core total Ab (test Non-reactive Non-reactive code = 93421-0) [place] MethodistHepatitis C pzwqudhs8544-23-18 18:09:36 Test Item Value Reference Range Interpretation Comments Hepatitis C Ab (test code = Non-reactive Non-reactive 06352-3) [place] MethodistHepatitis B surface ycywhtyz9056-28-81 17:37:51 Test Item Value Reference Range Interpretation Comments Hepatitis B surface Ab (test Non-reactive Non-reactive code = 63450-9) [facility] Xuvcphdti8665-85-57 13:37:09Hm Interface, Radiology Results Incoming - 08/14/2019 7:40 AM CSTPROCEDURE:Tunneled hemodialysis catheter placementPerforming Radiologist:Jeff Steele MD Assistants:None Pre Procedure Diagnosis:AKIPost Procedure Diagnosis:AKIIndication:HemodialysisComplications:No immediate post procedure complications.IMPRESSION:1.Technically successful fluoroscopic insertion of a 19 cm tip to cuff hemodialysis catheter. 2.The right internal jugular vein is patent and compressible on preprocedure ultrasound.PLAN:The tunneled central venous catheter is ready for immediate use. PROCEDURE SUMMARY:1.Venous access with ultrasound guidance2.Tunneled hemodialysis catheter placement under fluoroscopic guidancePROCEDURE DETAILS:Pre-procedure:Comparison studies: NoneWritten and informed consent for the procedure and monitored conscious sedation was obtained from the patient.Prophylactic antibiotics: NonePreparation: The right anterior chest wall and neck was prepared and draped using all elements of maximal sterile barrier technique including sterile gloves, sterile gown, catheter, mask, large sterile sheet, sterile ultrasound probe cover, hand hygiene and cutaneous antisepsis using chlorhexidine.Anesthesia/Sedation:Level of anesthesia: Moderate SedationMedications used: Fentanyl and Versed, 1% lidocaine and lidocaine with epinephrineAnesthesia administration: Pulse oximetry, heart rate, and blood pressure were continuously monitored by a radiology nurse and the performing provider.Duration of intraservice dcpp-cl-nixq anesthesia/sedation: 19 minutesAccess:Local anesthesia was administered. The vein was evaluated with preprocedure ultrasound and noted to be patent. Real-time ultrasound was used to visualize needle entry into the vessel and a permanent image was not stored. A 0.035 inch Amplatz was advanced into the inferior vena cavaand an image was archived.Vein accessed: Right internal jugular vein Access technique:5 Belarusian micropuncture setVenography:Vein catheterized: N/AIndication for venography: Not performedFindings: N/AHemodialysis catheter placement:An incision was made over the chest wall, and the hemodialysis catheter was tunneled subcutaneously to the venous access site. The catheter was advanced via a peel-away sheath into the vein under fluoroscopic guidance. The catheter tip location was fluoroscopically verifiedand an image was archived.Catheter Brand/Type: PalindromeCatheter size: 14.5 FrenchCatheter length: 19 cm tip to cuffCatheter Tip Location: Atriocaval junctionCatheter flush: NoneClosure:The neck access site was closed and the catheter was secured to the subcutaneous tissues. A sterile bandage was applied. Hemostasis was achieved with manual compression. Access site closure technique: DermabondCatheter securement technique: 2-0 silkCatheter packing: Heparin (1000U/cc)Radiation dose:Reference air Kerma: 11 mGyAdditional details:Additional description of procedure: N/AAdditional findings: N/AEquipment details: N/AEstimated blood loss: Less than 10 [facility]-[id number] [place] MethodistDNA Ab qbebbp9528-53-99 20:04:23 Test Item Value Reference Range Interpretation Comments DNA Ab screen (test code = 1297) Not Detected Not-Detected [place] MethodistIonized efnucoe4234-28-08 12:09:44 Test Item Value Reference Range Interpretation Comments pH (test code = 2753-2) 7.52 Ionized calcium (test code = 1.06 mmol/L 1.11-1.32 L ) Lab Interpretation (test code = Abnormal 96494-6) [place] MethodistPotassium epwuo4889-18-67 11:45:59 Test Item Value Reference Range Interpretation Comments Potassium (test code = 2823-3) 4.2 3.5- 5.0 mEq/L [place] MethodistXR Chest 1 Vw Elocwtxy3921-96-11 15:23:25Hm Interface, Radiology Results Incoming - 08/12/2019 9:26 AM CSTStudy:XR CHEST 1 VW PORTABLEHistory: ICU pt stable with no clinical status changesCOMPARISON: 08/09/2019IMPRESSION:A single view of thechest. Small to moderate bilateral pleural effusions. No pneumothorax. Likely atelectasis of the lower lobes. Cardiac silhouette is enlarged, stable. Visualized osseous structures are stable.[facility]-[id number] MethodistB natriuretic vhutaek8640-52-05 13:02:05 Test Item Value Reference Range Interpretation Comments BNP (test code = 24945-3) 2296 pg/mL 0-100 H Lab Interpretation (test code = Abnormal 92910-1) Bai MethodistGlomerular basement membrane Ab IgG (IFA)2019-08-12 09:09:04 Test Item Value Reference Range Interpretation Comments Glomerular basement Negative Negative INTERPRE TIVE INFORMATION: membrane Ab (test GBM Ab, I gG (IFA)When code = 74910-3) present, IgG antibody to glomerular base ment membrane (GBM) antigen detected by eit her indirect fluore scent antibody (IFA) or multiplex bead assay helps support a diagnosis of Goodpasture syndrome. However, the co mbined result of both assays performed durin g initial evaluation impr oves the diagnostic sens itivity for disease. A positive result in one o r both assays should b e confirmed by re nal biopsy. Test de veloped and characteris tics determined by A [facility]. S ee Compliance Stat ement D: [employer]/CSP erformed by [employer] Zeeshan [facility],[address], [place] [address] ocq .[employer] Dusty vences do, MD, Lab. Director Bai CatholicOccult blood, eonug9119-99-58 02:04:48 Test Item Value Reference Interpretation Comments Range Occult blood, stool Positive for A Specimen (test code = Occult blood InformationSpec imen 2334-1) Source: StoolSp ecimen Site: Nonpreser marya Lab Interpretation Abnormal (test code = 11383-1) Richardson AminHemoglobin & rwnsthiiuk6510-51-57 23:18:32 Test Item Value Reference Range Interpretation Comments HGB (test code = 718-7) 10.0 g/dL 12-16 L Resu lts double checked. HCT (test code = 4544-3) 30.2 % 37-47 L Lab Interpretation (test Abnormal code = 15506-3) Bai MethodistSmear qcywis1232-40-90 18:04:31 Test Item Value Reference Range Interpretation Comments Platelet slide review (test code Yael adequate = 84922-8) Anisocytosis (test code = 702-1) Moderate Polychromasia (test code = Moderate 54658-7) Ovalocytes (test code = 774-0) Moderate Richardson MethodistPrepare RBC, 2 Pjzul0791-12-12 17:20:00 Test Item Value Reference Range Interpretation Comments Product name (test code Apheresis Red Cell AS3 = 25) #2 LR Unit number (test code [id number] = [id number]) Product code (test code Q1343O53 = 3092) Dispense status (test Transfused code = 24) Blood expiration date (test code = 302) Blood type code (test 5100 code = 308) Blood type (test code = O POSITIVE 1314) Compatibility (test Compatible code = 6400) Richardson GutiérrezA nfell7689-36-32 16:33:49 Test Item Value Reference Range Interpretation Comments TORITO titer (test code = 05968-2) 1:160 Not-Detected A TORITO pattern (test code = 28389-8) Speckle Not-Detected A Lab Interpretation (test code = Abnormal 98233-4) Richardson NfiynolecHHQ8557-88-80 16:30:09 Test Item Value Reference Range Interpretation Comments TORITO screen (test code Positive Negative A Test p erformed using = 550) NOVA [employer] DAPI TORITO kit (Indirect Immunofluoresce nce Assay) for Anti -Nuclear Antibody on Media MatchmakerA-Lyser 16 0 Analyzer. Lab Interpretation Abnormal (test code = 26656-1) Richardson Gutiérrezti-neutrophilic cytoplasmic Abs tczpx7388-86-02 19:19:32 Test Item Value Reference Range Interpretation Comments ANCA screen (test code = 3472) Negative Negative Richardson AminUS Renal Nktcern7347-10-39 04:31:53Hm Interface, Radiology Results Incoming - 08/09/2019 10:35 PM CSTEXAMINATION: US RENAL DOPPLERCLINICAL HISTORY: akiCOMPARISON: None.TECHNIQUE: Doppler ultrasound of the renal vasculatureFINDINGS:RIGHT: The peak systolic velocity in the main right renal artery is 50 cm/s. Renal to aortic ratio is1.0. Resistive indices measure 0.78- 0.86. Main right renal vein is patent.LEFT: The peak systolic velocity in the main left renal artery is 102 cm/s. Renal to aortic ratio is 2.0. Resistive indices measure 0.84-0.92. Main left renal vein is patent.IMPRESSION:No Doppler sonographic evidence of significant renal artery stenosis.Elevated resistive indices may be related to underlying medical/parenchymal renal disease.[facility]-2HI9035VXFWyfssac MethodistBody fluid cyxwbyv6387-21-24 04:18:09 Test Item Value Reference Range Interpretation Comments Body fluid consult Done Approxima tely 1 granular (test code = 987) cast per l ow power field. One hyaline abilio t per low power field. S mall cluster of tubular epit helial cells. No tubu lar epithelial cast s seen. Findings review ed with Dr. Saldaña on 08/09/2019Revie wed by Camila Richard M.D. [facility] djeaqvse8003-09-48 22:56:14 Test Item Value Reference Range Interpretation Comments Barnett antibody (test <0.2 0.0- 0.9 AI code = 19946-1) Barnett antibody Negative AI Anti-Barnett an tibodies interp (test code = occurs i n 30-35% of 5269) systemic lupus erythematosus ( SLE) cases, but is v cesar specific for SL E. It may also present in mixed connective-tiss ue disease (MCTD). [facility] Hospital[facility] urinqjikezeoeig4678-34-70 22:36:40 Test Item Value Reference Range Interpretation Comments Protein (test code = 5.8 g/dL 6.3-8.3 L 9994.6-7.0 2885-2) g/dL1 ehbs1294.4-7.6 g/dL7 months-1emoc468 .1-7 .3 g/dL1-2 lykbk006.6-7.5 g/dL>3 .0-8.0 g/fC74-6800014. 3-8. 3 g/dL SPE albumin (test code 3.69 g/dL 4-5.3 L = 2862-1) SPE alpha 1 (test code 0.16 g/dL 0.1-0.25 = 2865-4) SPE alpha 2 (test code 0.70 g/dL 0.58-0.84 = 2868-8) SPE beta (test code = 0.56 g/dL 0.5-1.1 2871-2) SPE gamma (test code = 0.69 g/dL 0.6-1.3 2874-6) SPE extended See Comment Total protein a nd interpretation (test albumin are code = 49838-9) decreased suggesting prot ein malnutrition. SPE interpretation See Comment Blas chaparro MD; (test code = 2218) Gabino avila MD; Sharon Zhou, PhD ; Home Gooden MD Lab Interpretation Abnormal (test code = 13897-4) [place] MethodistC4 complement cgkrsdrnb8737-25-74 19:24:20 Test Item Value Reference Range Interpretation Comments C4 complement (test code = 4498-2) 38 mg/dL 10-40 [place] MethodistC3 complement raladczzb6066-55-73 19:24:20 Test Item Value Reference Range Interpretation Comments C3 complement (test code = 4485-9) 92 mg/dL 90-180 [place] MethodistUrinalysis, automated with vpjievqama7287-65-77 19:04:31 Test Item Value Reference Range Interpretation Comments Color, UA (test code = 5778-6) Straw Appearance, UA (test code = 5767-9) Clear Specific gravity, UA (test code = 1.006 1.001-1.035 5811-5) pH, UA (test code = 5803-2) 5.0 5.0-8.5 Protein, UA (test code = 65456-7) 3+ Negative A Glucose, UA (test code = 78471-1) 3+ Negative A Ketones, UA (test code = 2514-8) Negative Negative Bilirubin, UA (test code = 5770-3) Negative Negative Blood, UA (test code = 5794-3) Small Negative A Nitrite, UA (test code = 5802-4) Negative Negative Urobilinogen, UA (test code = <2.0 <2.0 54974-6) Leukocyte esterase, UA (test code = Negative Negative 5799-2) Epithelial cells, UA (test code = <1 /HPF 5787-7) WBC, UA (test code = 5821-4) None seen 0- 4 /HPF RBC, UA (test code = 35200-3) 2 0- 5 /HPF Bacteria, UA (test code = 99563-6) Few None seen Granular casts, UA (test code = 1 0- 1 /LPF 5793-5) Hyaline casts, UA (test code = 1 /F 5796-8) Yeast, UA (test code = 35077-7) None seen Yeast with pseudohyphae, UA (test None seen code = 60726-1) Lab Interpretation (test code = Abnormal 38073-5) Bai MethodistCreatine kinase, total (CPK)2019-08-09 12:37:57 Test Item Value Reference Range Interpretation Comments Creatine kinase (test code = 2157-6) 42 U/L 26-192 [place] ZicpvqsyyR-mrhdo1824-76-20 11:56:05 Test Item Value Reference Range Interpretation Comments D-dimer (test code = 2.05 0.00- 0.40 ug/mL H Uni ts are ug/ml 80435-0) FEU Fibrinogen Equivalent Unit .When combined with l ow clinical probability, D- dimer results of less than 0.5 ug/ml FEU h ave a good negative predictive valu e in excluding PE or DVT. For D-dimer re sults greater than 0. 5 ug/ml FEU furth er testing is david cated if PE or DVT is suspected clinically.Elev ated D-dimer results have been reported i n DVT, PE, and DI C cases and may indicate the presence of a c lot. D-dimer results may be elevated due to old age, pregna ncy, inflammatory diseases, traum a, post-operative states, sepsis, and malignancies. Lab Interpretation Abnormal (test code = 25197-9) [place] MethodistVenous blood [id number] 11:34:02 Test Item Value Reference Range Interpretation Comments pH, venous (test code = 2746-6) 7.28 7.32-7.42 L pCO2, venous (test code = 2020-) 44 45- 51 mmHg L pO2, venous (test code = 2705-2) 39 25- 40 mmHg Base excess, venous (test code = -6 meq/L -2-2 L 1927-3) O2 saturation, venous (test code 66 % 40-70 = 2711-0) Bicarbonate, venous (test code = 20.2 mmol/L 21-28 L 16811-2) Lab Interpretation (test code = Abnormal 14720-0) [place] [facility] lambda free light chain with [id number] 08:34:26 Test Item Value Reference Range Interpretation Comments [place] light chain (test code = 164.45 mg/L 3.3-19.4 H 23304-5) Lambda light chain (test code = 95.70 mg/L 5.7-26.3 H 01194-3) [place] lambda ratio (test code = 1.72 0.26-1.65 H 98000-2) Lab Interpretation (test code = Abnormal 22911-0) [place] MethodistLactic acid [id number] 07:03:49 Test Item Value Reference Range Interpretation Comments Lactic acid (test code = 85013-4) 0.8 mmol/L 0.5-2.2 [place] MethodistUs carotid [id number] 06:28:00Interface, Radiology Results In - 08/09/2019 12:28 AM [facility] Vascular Ultrasound Laboratory Carotid Artery Duplex [id number] [place] [address] For aerospace quality engineer purposes, the categorization of the degree of the stenosis of this exam is based on criteria described in the IAC carotid stenosis grading white paper( www.intersocietal.org/Vascular) and Josias Christian., Trenton Quach, et al. Carotid artery stenosis: romano-scale and Doppler US diagnosis--Society of Radiologists in Ultrasound Consensus Conference. Radiology. 2003 Nov; 229(2):340-6. Pat.Name: SEAN MOULTON Pat.ID: [id number] St.Date: 08/08/2019 Refer.MD: EMILY ULLOA MD Exam Time: 8:33:00 PM Study Type:Carotid Age: 7 1940,79Y Sex: FEMALE Sonogrphr: ADALI Thakur, JEVON Pat. Stat.:Inpatient Room: [place] [address] Tape Vol: EMMIE, CPT - 4: 48238 Echo Event ID:[id number] Order ID: [id number] Reason for Study:Dizziness. History of CKD, PVD, DM, HTN, carotidartery disease, SOB.Procedures: Colorflow, Grayscale/2D, Pulsed waveDopplerRace: C SUMMARY: PHYSICAL ASSESSMENT Blood Pulses Carotid Pressure Carotid Temporal BruitRight Leg 156/66 + + 0Left IV + + 0CAROTID ARTERY SCANRIGHT: There is scattered hard and calcified plaque in the commoncarotid artery. There is scattered hard and calcified plaque noted inthe bulb extending into the proximal internal andexternal carotidarteries. Disturbed color flow with no elevated velocities were notedin the proximalinternal and external carotid arteries. There isantegrade flow noted in the vertebral artery. There is hard plaque inthe subclavian artery.LEFT: There is scattered hard and calcified plaque in the commoncarotid artery. There is scattered hard and calcified plaque noted inthe bulb extending into theproximal internal and external carotidarteries. Disturbed color flow with elevated velocity of 138 cm/sec isnoted in the mid internal carotid artery. There is antegrade withhigh resistant flow noted in the vertebral artery. PRELIMINARY FINDINGS1. Non-stenotic plaque in the common carotid artery, bilaterally.2. <50% stenosis in the bulb and internal carotid artery,bilaterally. 3. <50% stenosis in the external carotid artery, bilaterally.4. There is antegrade flow noted in the vertebral artery. 5. Technically difficult study due to patient's respiratoryvariations.PHYSICIAN INTERPRETATION Bilateral carotid duplex examination demonstrated atheroscleroticplaques in the bulbs/ CCAs. Less than 50% stenosis in the bulb and internal carotid artery,bilaterally.Both vertebral arteries are anteg rade. FINDINGS: ------Carotid Findings: Right Left Verteb.Flw Antegrade Antegrade Subclavian Biphasic Biphasic MEASUREMENTS: DOPPLERRight CCA Dist CCA Dist PSV 64.4 cm/s CCA Dist EDV 9.45 cm/sRight CCA Mid CCA Mid PSV 64.4 cm/s CCA Mid EDV 6.15 cm/sRight CCA Prox CCA Prox PSV 46 cm/s CCA Prox EDV 9.78 cm/sRight ECA Prox ECA Prox PSV 125 cm/s ECA Prox EDV 0 cm/sRight ICA Dist ICA Dist PSV 73.6 cm/s ICA Dist EDV 15.4 cm/sRight ICA Mid ICA Mid PSV 72.3 cm/s ICA Mid EDV 14.1 cm/sRight ICA Prox ICA Prox PSV 62 cm/s ICA Prox EDV 8.93 cm/sRight Vertebral Vertebral PSV 38.3 cm/s Vertebral EDV 10.4 cm/sRight Subclavian Subclavian PSV 147 cm/s Subclavian EDV 0 cm/sLeft CCA Dist CCA Dist PSV 99.5 cm/s CCA Dist EDV 22 cm/sLeft CCA Mid CCA Mid PSV 69.4 cm/s CCA Mid EDV 12.4 cm/sLeft CCA Prox CCA Prox PSV 73.3 cm/sCCA Prox EDV 13.7 cm/sLeft ECA Prox ECA Prox PSV 94.7 cm/s ECA Prox EDV 2.58 cm/sLeft ICA Dist ICA Dist PSV 77 cm/s ICA Dist EDV 21.3 cm/sLeft ICA Mid ICA Mid PSV 139 cm/s ICA Mid EDV 34.1 cm/sLeft ICA Prox ICA Prox PSV 99.5 cm/Gareth Prox EDV 26.8 cm/sLeft Vertebral Vertebral PSV 78.5 cm/s Vertebral EDV 0 cm/sLeft Subclavian Subclavian PSV 152 cm/s Subclavian EDV 0 cm/sRight ICA/CCA RatioICA/CCA PSV 0.963 Left ICA/CCA Ratio ICA/CCA PSV 1.43 Signed 12:28 Jaron Atkinson MD, [facility] MethodistEchocardiogram complete w contrast and 3D if [id number] 04:43:00Interface, Radiology Results In - 08/08/2019 10:43 PM [facility] Echocardiography Report [id number] [id number] Pat.Name: SEAN MOULTON Pat.ID: [id number].Date: 08/08/2019 Refer.MD: EMILY ULLOA MD Exam Time: 12:19:00 AM Study Type:Routine Echo Height: 58in Weight: 106lb BSA: 1.39 m2 Age: 7 1940,79Y Sex: FEMALE BP: 168/77 HR: 70 bpm Sonogrphr: JEVON [place], RVT Pat. Stat.:Inpatient Room: ED-20 CPT - 4: 77334, 27339, 81768 Study Status:Final Echo Event ID:[id number] Order ID: [id number] Reason for Study:SOB Procedures: 2D Echo, 2D Echo, Colorflow Doppler, PortableRace: C SUMMARY:------- LV size is sndu-bz-vknryttbbq enlarged. LV EF is moderately toseverely depressed.Regional wall motion abnormalities present. Estimated EF is 30-34%.Pleural effusion is present.LV filling pressure is borderline elevated.Estimated PA systolic pressure is 33-38 mmHg, assuminga mean RAP of0-5 mmHg. FINDINGS: ------LV: LV size is mkcm-iy-leocvmqszs enlarged. LV EF is moderately to severely depressed. Estimated EF is 30-34%. Regional wall motion abnormalities present. Mid Anterior, Mid Anteroseptal,Apical Anterior, Apical Septal, Apical abel are akinetic. ApicalInferior, Apical Lateral abel are hypokinetic. Normal wall motionin all other abel.RV: RV size is normal. RV systolic function is normal.LA: LA volume is moderately enlarged.RA: RA size is normal.AO: Aortic root diameter is normal.GODWIN: No pericardial effusion.PLE: Pleural effusion is present.SVn: Normal collapse of IVC during inspiration is consistent with normal RA pressure.AV: No structural AV abnormalities noted.MV: Mild thickening and calcification of mitral leaflets. Mild mitral regurgitation.PV: Pulmonic valve not well seen.TV: No structural TV abnormalities noted. A trace of tricuspid regurgitation Workman: LV relaxation is impaired. LV filling pressure is borderline elevated. Other: Estimated PA systolicpressure is 33-38 mmHg, assuming a mean RAP of 0-5 mmHg. -MEASUREMENTS: 2DParasternal Long [place] Ao An 1.7 cm LVPWd 0.67 cm Ao Rtd 2.6 cm Index 1.9 cm/m2 LA Ds 3.6 cm IVSd 0.73 cm RWT 0.3 LVIDd 4.4 cm Index 3.2 cm/m2 LV Mass 92 g (87-129) LVIDs 3.5 cm LVM Index 66 g/m2 LV%fs 20 % LA Sng Plane LA Area 18 cm2 (8.8-23.4) LA Vol 50 ml Index 36 ml/m2 LA LngAx 5.3 cm LVOT Stroke Vol LVOT 1.7 cm LVOT LVOT Area 2.3 cm2 DOPPLERLVOT Stroke Vol LVOT TVI 17 cm LVOT CI 2.1 l/m/m2 LVOT SV 39 ml HR 73 bpm LVOT CO 2.9 l/min LVOT SVi 28 ml/m2 MV E/A Ratio MV pkE 79 cm/s (60-130) MV E/A 0.75 MV pkA 105 cm/s TV Pressure Gradient TV PkVel 287 cm/s TV PG 33 mmHg WALL MOTION: RESTING WALL MOTION:Mid Anterior, Mid Anteroseptal, Apical Anterior, Apical Septal, Apicalwalls are akinetic. Apical Inferior, Apical Lateral abel arehypokinetic. Normal wall motion in all other abel.Wall Index = 1.7Signed 08/08/2019 10:43 PMDilan Mcpherson M.D.[place] MethodistUS [id number] 00:33:43Hm Interface, Radiology Results 08/08/2019 6:36 PM CSTEXAMINATION: US RENALCLINICAL HISTORY: obstructionCOMPARISON: No TECHNIQUE: Routine renal ultrasound obtained.IMPRESSION:1.Urinary bladder not visualized, collapsed.2.Kidneys measure 9.9 x 4.3 x 4.3 cm in the right and 10.0 x 4.2 x 4.2 cm left. Cortical thickness and echogenicity are well-maintained. No evidence of hydronephrosis oneither side.3.A 1 cm cyst on the right kidney. No focal lesion on the left. No stones or hydronephrosis on either side. [facility]-[id number] MethodistUrinalysis screen and microscopy, with reflex to [id number] 23:26:59 Test Item Value Reference Range Interpretation Comments Specimen site (test code = Clean catch 3462619) Color, UA (test code = 5778-6) Straw Appearance, UA (test code = Hazy 5767-9) Specific gravity, UA (test code = 1.006 1.001-1.035 5811-5) pH, UA (test code = 5803-2) 5.0 5.0-8.5 Protein, UA (test code = 75855-8) 2+ Negative A Glucose, UA (test code = 95882-2) 3+ Negative A Ketones, UA (test code = 2514-8) Negative Negative Bilirubin, UA (test code = Negative Negative 5770-3) Blood, UA (test code = 5794-3) Moderate Negative A Nitrite, UA (test code = 5802-4) Negative Negative Urobilinogen, UA (test code = <2.0 <2.0 02059-5) Leukocyte esterase, UA (test code Negative Negative = 5799-2) WBC, UA (test code = 5821-4) 10 0- 4 /HPF H RBC, UA (test code = 56351-8) 6 0- 5 /HPF H Bacteria, UA (test code = Few None seen 10435-9) Yeast, UA (test code = 80524-9) None seen Yeast with pseudohyphae, UA (test None seen code = 38624-8) Amorphous crystals (test code = Few 31583-3) Granular casts, UA (test code = 3 0- 1 /LPF H 5793-5) Lab Interpretation (test code = Abnormal 53344-7) [place] MethodistCreatinine level, urine, [id number] 23:08:02 Test Item Value Reference Range Interpretation Comments Creatinine, urine, random (test code 23 mg/dL = 43572-4) [place] MethodistProtein, urine, [id number] 23:08:02 Test Item Value Reference Range Interpretation Comments Protein, urine random (test code = 153 mg/dL 2888-6) [facility] MethodistUrea nitrogen, urine, [id number] 23:08:02 Test Item Value Reference Range Interpretation Comments Urea nitrogen, urine, random (test 184 mg/dL code = 3095-7) [place] MethodistSodium level, urine, [id number] 23:08:01 Test Item Value Reference Range Interpretation Comments Sodium, urine, random (test code = 109 mEq/L 75177-2) [place] MethodistHemoglobin [id number] 14:56:39 Test Item Value Reference Range Interpretation Comments Hemoglobin A1C (test 8.3 % 4-5.6 H HbA1c c utoffs for code = 74447-2) diagnosing diabetes:4.0% - 5.6% = normal5.7% - 6.4% = increased risk for diabetes (prediabetes)9> =6.5% = keigrkns5Bury s for glycemic contro l (ADA 2016)< 7.0% Ta rget for non adults with miguel betes. More or less stringent targe ts may be appropriate for individual kasey ents. <7.5% Target for Children and adolescents wit h type 1 diabetes. Lab Interpretation (test Abnormal code = 43870-1) [place] K[id number] 11:06:08 Test Item Value Reference Range Interpretation Comments Troponin (test code = 0.075 ng/mL 0-0.04 H In pat ients 67169-1) suspected of nguyễn ving a myocardial infarction, mary ng with all other appropriate cli nical measures and ac tions including ECG a nd other diagnosti cs as appropriate, me asure Ultra TnI at 0 hrs and at 3 hrs.Myocardial infarction VERY LIKELYThe 0 hr TnI level is > 0.10 ng/mL ----- ----- ----- --Karlo cardial infarct ion LIKELYThe 0 hr TnI level is > 0.04 ng/mL and 3 hr level is increased or decreased by at least 0.020 ng/ mL ----- ----- ----- Karlo cardi al infarction V CESAR UNLIKELYBoth th e 0 hr and 3 hr TnI levels <= 0.04 ng/mL(within no rmal limits) OR 0 hr is > 0.04 ng/mL and 3 hr is increased OR decreased by le ss than 0.020 ng/m L Lab Interpretation Abnormal (test code = 00901-0) [place] MethodistComprehensive metabolic [id number] 09:22:26 Test Item Value Reference Range Interpretation Comments Sodium (test code = 140 135- 148 mEq/L 2951-2) Potassium (test code = 4.7 3.5- 5.0 mEq/L 2823-3) Chloride (test code = 109 98- 112 mEq/L 2074-0) CO2 (test code = 2027-) 16 24- 31 mEq/L L Anion gap (test code = 15@ANIO 7- 15 mEq/L 79639-3) BUN (test code = 3094-0) 67 mg/dL 8-23 H Creatinine (test code = 4.80 mg/dL 0.5-0.9 H 2160-0) Glucose (test code = 180 mg/dL 65-99 H 2345-7) Calcium (test code = 7.9 mg/dL 8.8-10.2 L 09868-7) Protein (test code = 6.0 g/dL 6.3-8.3 L [place] 9994.6-7.0 2885-2) g/dL1 mezl0638.4-7.6 g/dL7 months-0mszu374 .1- 7.3 g/dL1-2 hzbsa436.6-7.5 g/dL>3 .0-8.0 g/qU09-2608167. 3-8 .3 g/dL Albumin (test code = 2.1 g/dL 3.5-5 L 1751-7) A/G ratio (test code = 0.5 0.7-3.8 L 1759-0) Alkaline phosphatase 58 U/L 35-104 (test code = 6768-6) AST (test code = 1920-8) 19 U/L 10-35 ALT (test code = 1742-6) 12 U/L 5-50 Total bilirubin (test <0.2 0-1.2 code = 1974-) Lab Interpretation (test Abnormal code = 05186-9) [place] MethodistT4, [id number] 08:41:26 Test Item Value Reference Range Interpretation Comments T4, free (test code = 3024-7) 1.3 ng/dL 0.9-1.7 [place] MethodistThyroid stimulating [id number] 08:41:26 Test Item Value Reference Range Interpretation Comments TSH (test code = 3016-3) 4.68 0.27- 4.20 uIU/mL H Lab Interpretation (test code = Abnormal 50272-5) [facility] MethodistLipid [id number] 08:36:45 Test Item Value Reference Interpretation Comments Range Cholesterol (test 259 mg/dL <200 H code = 3-3) Triglycerides (test 179 mg/dL <150 H code = 2571-8) HDL cholesterol 48 mg/dL >40 (test code = 5-9) LDL cholesterol 188 mg/dL <100 H Result obtai justino by direct (test code = 2089-1) LDL joslyn surement Lipid panel SeeBelow Total Cholester ol (mg/dL) interpretation (test < 200 code = 39270-1) Desirable 200-239 Borderline -high >=240 Hi gh Triglyceri aniyah (mg/dL) <150 No rmal 150-199 Borderline-high 200-499 High >=500 Very high HDL Choles terol (mg/dL) <40 Low (male) < 40 Low (female) L DL Cholesterol (mg /dL) <100 Optimal 1 00-129 Near or above o ptimal 130-159 Borderline-high 160-189 High >=190 Very high Risk Cat ergories that modify LDL goals.Risk Catergories LDL goal (mg/dL )CHD and CHD risk equiva lent <100 (10-year risk >20%)Multiple ( 2+) risk factors < 130 (10-year risk = <20%)0-1 risk factors <160 (<10-ye ar risk) Defining levels of lipids in metabolic syndromeTriglyc erides > =150 mg/dLHDL Choles terol Men <40 mg/dL Women <40 mg/dL Non-HDL cholest kalyani is a second target f or therapy in personswith high triglycerides ( >=200 mg/dL) Lab Interpretation Abnormal (test code = 19682-6) [facility] [id number] 02:33:40SheGabino kahn MD 08/08/2019 1:39 PMCritical CarePerformed by: Gabino Feliz [facility]ISONuthorized by: Gabino Feliz MD Critical care provider statement: Critical care time (minutes): 35 Critical care time was exclusive of: Separately billable procedures and treating other patients Critical care was necessary to treat or prevent imminent or life-threatening deterioration of the following conditions: Respiratory failure and cardiac failure Critical care was time spent personally by me on the following activities: Development of treatment plan with patient or surrogate,discussions with consultants, discussions with primary provider, evaluation of patient's response totreatment, examination of patient, interpretation of cardiac output measurements, obtaining history from patient or surrogate, ordering and performing treatments and interventions, ordering and review of laboratory studies, ordering and review of radiographic studies, pulse oximetry, re-evaluation of patient's condition and review of old chartsW[place]mal[place] MethodistLipase [id number] 01:20:04 Test Item Value Reference Range Interpretation Comments Lipase (test code = 3040-3) 87 U/L 13-60 H Lab Interpretation (test code = Abnormal 99898-3) [place] MethodistAmylase [id number] 01:20:02 Test Item Value Reference Range Interpretation Comments Amylase (test code = 1798-8) 100 U/L 28-100 [place] Amin
--- NOTE | 2019-10-31 11:54 | EDPHYS ---
Physician Documentation [facility] Name: Aury Garcia Age: 79 yrs Sex: Female : 1940 Arrival Date: 10/31/2019 Time: 10:25 Bed 6 Private MD: ED Physician Rufino Kemp HPI: 10/30 11:38 This 79 yrs old Female presents to ER via EMS with complaints of Dialysis jr8 Catheter Problem, pulled out dialysis catheter. 11:38 The patient has a dialysis catheter in the right subclavian area. Type of problem: jr8 pulled catheter . Onset: The symptoms/episode began/occurred acutely, today. The malfunction was discovered at home. Dialysis schedule: . Associated signs and symptoms: Pertinent positives: None. It is unknown whether or not the patient has had similar symptoms in the past. The patient has not recently seen a physician. Sister of patient found that she had pulled catheter. Patient with severe dementia history . Historical: - Allergies: 10:36 Codeine; tw2 10:36 Tramadol HCl; tw2 - Home Meds: 13:43 amlodipine 5 mg tab 1 tab once daily [Active]; aspirin 81 mg Oral TbEC 1 tab once daily tw2 [Active]; atorvastatin 20 mg oral tab 1 tab once daily [Active]; carvedilol 12.5 mg oral tab 1 tab every 12 hours [Active]; docusate sodium 100 mg Oral cap 1 cap once daily [Active]; hydroxyzine HCl 25 mg Oral tab 1 tab 3 times per day [Active]; Novolog 100 unit/mL Sub-Q soln 5 Unit [Active]; levothyroxine 25 mcg tab 1 tab once daily [Active]; lorazepam 0.5 mg Oral tab 1 tab 3 times per day [Active]; pantoprazole 40 mg oral TbEC 1 tab once daily [Active]; pentoxifylline 400 mg oral TbER 1 tab 3 times per day [Active]; - PMHx: 10:36 TIA; Hypothyroidism; Hypertension; Hyperlipidemia; Dialysis; Diabetes - IDDM; CVA; tw2 chronic kidney disease; 13:32 Dementia; hb - PSHx: 10:36 Hysterectomy; tw2 - Immunization history:: Adult Immunizations. - Social history:: Smoking status: . ROS: 11:47 Unable to obtain ROS due to baseline dementia. jr8 Exam: 11:47 Eyes: Pupils equal round and reactive to light, extra-ocular motions intact. Lids and jr8 lashes normal. Conjunctiva and sclera are non-icteric and not injected. Cornea within normal limits. Periorbital areas with no swelling, redness, or edema. ENT: Nares patent. No nasal discharge, no septal abnormalities noted. Tympanic membranes are normal and external auditory canals are clear. Oropharynx with no redness, swelling, or masses, exudates, or evidence of obstruction, uvula midline. Mucous membranes moist. Neck: Trachea midline, no thyromegaly or masses palpated, and no cervical lymphadenopathy. Supple, full range of motion without nuchal rigidity, or vertebral point tenderness. No Meningismus. Cardiovascular: Regular rate and rhythm with a normal S1 and S2. No gallops, murmurs, or rubs. Normal PMI, no JVD. No pulse deficits. Respiratory: Lungs have equal breath sounds bilaterally, clear to auscultation and percussion. No rales, rhonchi or wheezes noted. No increased work of breathing, no retractions or nasal flaring. Abdomen/GI: Soft, non-tender, with normal bowel sounds. No distension or tympany. No guarding or rebound. No evidence of tenderness throughout. Skin: Warm, dry with normal turgor. Normal color with no rashes, no lesions, and no evidence of cellulitis. MS/ Extremity: Pulses equal, no cyanosis. Neurovascular intact. Full, normal range of motion. 11:47 Chest/axilla: Inspection: Old catheter sight noted at the subclavian level. No bleeding or hematoma noted. No erythema present. 11:47 Neuro: Orientation: to person, Mentation: confused, Memory: unable to test, Cranial nerves: extraocular movements are intact, Speech is slowed, Tongue strength is normal, Motor: moves all fours, Sensation: no obvious gross deficits, seizure activity, is not displayed by the patient, Abnormal movements: there are no abnormal movements. Vital Signs: 10:22 BP 157 / 86; Pulse 62; Resp 17; Temp 98.0(TE); Pulse Ox 100% on R/A; Weight 52.16 kg tw2 (R); Height 5 ft. 0 in. (152.40 cm); Pain 0/10; 12:30 BP 168 / 88; Pulse 64; Resp 17; Pulse Ox 98% on R/A; hb 13:30 BP 154 / 82; Pulse 66; Resp 15; Pulse Ox 99% on R/A; hb 14:37 BP 165 / 89; Pulse 63; Resp 17; Pulse Ox 99% on R/A; tw2 10:22 Body Mass Index 22.46 (52.16 kg, 152.40 cm) tw2 MDM: 10:50 Patient medically screened. jr8 11:47 Data reviewed: vital signs, nurses notes, lab test result(s), radiologic studies, plain jr8 films. Data interpreted: Pulse oximetry: on room air is 100 %. Interpretation: normal. Counseling: I had a detailed discussion with the patient and/or guardian regarding: the historical points, exam findings, and any diagnostic results supporting the discharge/admit diagnosis, lab results, radiology results, the need for further work-up and treatment in the hospital. Physician consultation: Ruddy Garcia MD was called at 11:49, was contacted at 11:49, regarding consult, and will see patient in inpatient room. 11:52 ED course: Dr. Agrawal consulted as well who is patients manager clinical pharmacy . jr8 Administered Medications: No medications were administered Disposition: 10/31/19 11:53 Hospitalization ordered by Prince Mikal for Observation. Preliminary diagnosis is Displacement of vascular dialysis catheter. - Bed requested for Telemetry/MedSurg (observation). - Status is Observation. tw2 - Condition is Stable. - Problem is new. - Symptoms are unchanged. Addendum: 11/02/2019 18:21 Co-signature as Attending Physician, Rufino Kemp MD. m a2 Signatures: Dispatcher [employer] EDMS Kavya Dennis Josh, PA PA jr8 Joanna Vega, RN RN Rose Evans RN RN tw2 Rufino Kemp MD MD ma2 Corrections: (The following items were deleted from the chart) 10/30 11:47 11:47 Unable to obtain ROS due to altered mental status, jr8 jr8 12:14 11:40 CBC+H.LAB.BRZ ordered. EDMS EDMS 12:14 11:40 BASIC METABOLIC PANEL+C.LAB.BRZ ordered. EDMS EDMS 12:14 11:40 PROTIME (+INR)+COAG.LAB.BRZ ordered. EDMS EDMS 12:41 11:42 Chest Single View+RAD.RAD.BRZ ordered. EDMS EDMS 13:13 11:53 Hospitalization Ordered by Prince Mikal RIOS for Observation. Preliminary bd diagnosis is Displacement of vascular dialysis catheter. Bed requested for Telemetry/MedSurg (observation). Status is Observation. Condition is Stable. Problem is new. Symptoms are unchanged. jr8 14:38 13:13 10/31/2019 11:53 Hospitalization Ordered by Prince Mikal [facility]OS for Observation. tw2 Preliminary diagnosis is Displacement of vascular dialysis catheter. Bed requested for Telemetry/MedSurg (observation). Status is Observation. Condition is Stable. Problem is new. Symptoms are unchanged. bd
--- NOTE | 2019-10-31 11:54 | ER ---
Nurse's Notes [facility] Name: Aury Garcia Age: 79 yrs Sex: Female : 1940 Arrival Date: 10/31/2019 Time: 10:25 Bed 6 Private MD: Diagnosis: Displacement of vascular dialysis catheter Presentation: 10/30 10:22 Chief complaint: EMS states: pt from home and taken care of by her sister and she tw2 called us because she pulled out, pt has hx of dementia, dm, htn, kidney failure, and pne, last dialysis was yesterday, she normally goes on T/TH/Sat, vs stable bgl 81, her sister Leny takes care of her at her ph# [phone]. Coronavirus screen: Proceed with normal triage. Patient denies a cough. Patient denies shortness of breath or difficulty breathing. Patient denies measured and/or subjective temperature greater than 100.4F prior to today's visit. Patient denies travel on a cruise ship or to a country the [facility] currently lists as an affected area. Ebola Screen: Patient denies travel to an Ebola-affected area in the 21 days before illness onset. 10:22 Method Of Arrival: EMS: [facility] tw2 10:37 Initial Sepsis Screen: Does the patient meet any 2 criteria? No. Patient's initial tw2 sepsis screen is negative. Does the patient have a suspected source of infection? No. Patient's initial sepsis screen is negative. Risk Assessment: Do you want to hurt yourself or someone else? Patient reports no desire to harm self or others. Onset of symptoms was October 31, 2019. 10:37 Acuity: JOSE 3 tw2 Triage Assessment: 10:37 General: Appears in no apparent distress. Behavior is calm, cooperative, appropriate tw2 for age. Pain: Denies pain. Historical: - Allergies: 10:36 Codeine; tw2 10:36 Tramadol HCl; tw2 - Home Meds: 13:43 amlodipine 5 mg tab 1 tab once daily [Active]; aspirin 81 mg Oral TbEC 1 tab once daily tw2 [Active]; atorvastatin 20 mg oral tab 1 tab once daily [Active]; carvedilol 12.5 mg oral tab 1 tab every 12 hours [Active]; docusate sodium 100 mg Oral cap 1 cap once daily [Active]; hydroxyzine HCl 25 mg Oral tab 1 tab 3 times per day [Active]; Novolog 100 unit/mL Sub-Q soln 5 Unit [Active]; levothyroxine 25 mcg tab 1 tab once daily [Active]; lorazepam 0.5 mg Oral tab 1 tab 3 times per day [Active]; pantoprazole 40 mg oral TbEC 1 tab once daily [Active]; pentoxifylline 400 mg oral TbER 1 tab 3 times per day [Active]; - PMHx: 10:36 TIA; Hypothyroidism; Hypertension; Hyperlipidemia; Dialysis; Diabetes - IDDM; CVA; tw2 chronic kidney disease; 13:32 Dementia; hb - PSHx: 10:36 Hysterectomy; tw2 - Immunization history:: Adult Immunizations. - Social history:: Smoking status: . Screenin:36 Abuse screen: Denies threats or abuse. Nutritional screening: No deficits noted. tw2 Tuberculosis screening: No symptoms or risk factors identified. Fall Risk Secondary diagnosis (15 points) dementia, impaired mobility. Assessment: 10:30 General: Appears in no apparent distress. Behavior is calm, cooperative. Pain: Denies hb pain. Neuro: Level of Consciousness is awake, alert, obeys commands, Oriented to person. Cardiovascular: Capillary refill < 3 seconds Patient's skin is warm and dry. Respiratory: Airway is patent Respiratory effort is even, unlabored, Respiratory pattern is regular, symmetrical, Breath sounds are clear bilaterally. GI: No signs and/or symptoms were reported involving the gastrointestinal system. : No signs and/or symptoms were reported regarding the genitourinary system. EENT: No signs and/or symptoms were reported regarding the EENT system. Derm: Skin is pink, warm \T\ dry. Musculoskeletal: No signs and/or symptoms reported regarding the musculoskeletal system. 10:58 Reassessment: Daughter Augusta Jarvis [phone]. hb 11:30 Reassessment: Patient appears in no apparent distress at this time. No changes from hb previously documented assessment. Patient and/or family updated on plan of care and expected duration. Pain level reassessed. 12:30 Reassessment: Patient appears in no apparent distress at this time. No changes from hb previously documented assessment. Patient and/or family updated on plan of care and expected duration. Pain level reassessed. 13:30 Reassessment: Patient appears in no apparent distress at this time. No changes from hb previously documented assessment. Patient and/or family updated on plan of care and expected duration. Pain level reassessed. 14:36 Reassessment: Patient appears in no apparent distress at this time. No changes from tw2 previously documented assessment. Patient and/or family updated on plan of care and expected duration. Pain level reassessed. Vital Signs: 10:22 BP 157 / 86; Pulse 62; Resp 17; Temp 98.0(TE); Pulse Ox 100% on R/A; Weight 52.16 kg tw2 (R); Height 5 ft. 0 in. (152.40 cm); Pain 0/10; 12:30 BP 168 / 88; Pulse 64; Resp 17; Pulse Ox 98% on R/A; hb 13:30 BP 154 / 82; Pulse 66; Resp 15; Pulse Ox 99% on R/A; hb 14:37 BP 165 / 89; Pulse 63; Resp 17; Pulse Ox 99% on R/A; tw2 10:22 Body Mass Index 22.46 (52.16 kg, 152.40 cm) tw2 ED Course: 10:22 Placed in gown. Bed in low position. Side rails up X2. surveillance system monitor on. Pulse ox on. tw2 NIBP on. Warm blanket given. Verbal reassurance given. 10:25 Patient arrived in ED. tw2 10:37 Arm band placed on Patient placed in an exam room, on monitoring manager, on pulse tw2 oximetry. 10:38 Triage completed. tw2 10:47 Anthony Fox PA is PHCP. jr8 10:47 Rufino eKmp MD is Attending Physician. jr8 11:44 Rose Serrano RN is Primary Nurse. tw2 11:53 Prince Ren MD is Hospitalizing Provider. jr8 12:17 Missed attempt(s): 20 gauge in left antecubital area. Bleeding controlled, band aid dh3 applied, catheter tip intact. 14:36 Inserted saline lock: 22 gauge in right antecubital area, using aseptic technique. tw2 14:37 No provider procedures requiring assistance completed. Patient admitted, IV remains in tw2 place. Administered Medications: No medications were administered Outcome: 11:53 Decision to Hospitalize by Provider. jr8 14:37 Admitted to Med/surg accompanied by tech, via stretcher, room 212, with chart. tw2 14:37 Condition: stable 14:37 Instructed on the need for admit. 14:38 Patient left the ED. tw2 Signatures: Anthony Fox PA PA jr8 Joanna Vega RN RN Rose Serrano RN RN tw2 Alyssa Silva 3 Corrections: (The following items were deleted from the chart) 13:31 10:30 Neuro: Level of Consciousness is awake, alert, obeys commands, Oriented to hb person, place, situation, hb
--- NOTE | 2019-10-31 14:35 | P.HP ---
Certification for Inpatient Patient admitted to: Observation With expected LOS: <2 Midnights Patient will require the following post-hospital care: None Practitioner: I am a practitioner with admitting privileges, knowledge of patient current condition, hospital course, and medical plan of care. Services: Services provided to patient in accordance with Admission requirements found in Title 42 Section 412.3 of the Code of Federal Regulations Patient History Date of Service: 10/31/19 Reason for admission: Patient removed her HD catheter History of Present Illness: Patient is a 79 year old female with a PMH of dementia, HTN, IDDM and ESRD on HD TTS since Jul 2019 . She follows up with Dr. Garcia at [facility]. She presents to the ER after she pulled her HD catheter. During our encounter, patient was without visible signs of distress or injury. She is a poor historian due to her dementia. She was last dialyzed on 05/2020. Daughter called at [phone] for additional information. She states patient has been really agitated for the past few months. She has been non-compliant with her medications due to her agitations, fall and left hip fracture Jul 2019. She was hospitalized at [facility] [place]. Allergies codeine Allergy (Intermediate, Verified 12/19/16 13:31) Itching/Hives/Rash Home Medications: Amlodipine [Norvasc*] 10 mg PO DAILY 12/19/16 Insulin Detemir [Levemir] 25 units SQ BID 12/19/16 - Past Medical/Surgical History Diabetic: Yes -: HTN,IDDM,CVA - Social History Alcohol use: No CD- Drugs: No Caffeine use: Yes Physical Examination - Physical Exam General: Alert, In no apparent distress, Cooperative, Demented, Confused HEENT: Atraumatic, Normocephalic, EOMI Neck: Supple Respiratory: Clear to auscultation bilaterally, Normal air movement Cardiovascular: No edema, Normal pulses, Regular rate/rhythm, Normal S1 S2 Gastrointestinal: Normal bowel sounds, Soft and benign, Non-distended Musculoskeletal: No clubbing, No swelling, No contractures, No erythema, No tenderness, No warmth Integumentary: No rashes, No breakdown, No significant lesion, No tenderness/swelling, No erythema, No warmth, No cyanosis Neurological: Dementia - Studies Laboratory Data (last 24 hrs) 10/31/19 11:39: PT Cancelled, INR Cancelled 10/31/19 11:39: Sodium Cancelled, Potassium Cancelled, BUN Cancelled, Creatinine Cancelled, Glucose Cancelled 10/31/19 11:39: WBC Cancelled, Hgb Cancelled, Hct Cancelled, Plt Count Cancelled Assessment and Plan - Problems (Diagnosis) (1) ESRD (end stage renal disease) on dialysis Current Visit: Yes Status: Acute (2) Hemodialysis catheter malfunction Current Visit: Yes Status: Acute (3) Hypertension Current Visit: Yes Status: Acute - Plan Assessment Patient is a 79 year old female with a PMH of dementia with behavioral agitation, HTN, IDDM, ESRD on HD TTS who presents to the ER after she pulled out her HD catheter. ESRD on HD TTS HTN IDDM Dementia plan: Admit to telemetry under observation HD catheter placement by Surgery tomorrow (Dr. Garcia has been called) Resume home dose of norvasc Resume home dose of lantus Hold ASA preoperatively - Advance Directives Does patient have a Living Will: Yes Does patient have a Durable POA for Healthcare: Yes
[2019-10-31 15:27] VITALS: BMI 22.4
[2019-10-31] MEDS ORDERED: GLUCAGON 1 MG/VIAL IM PRN (15:38)
[2019-10-31] MEDS ORDERED: D50W 25 GM/50 ML SYRINGE/VIAL IV PRN (15:38)
[2019-10-31] MEDS ORDERED: ONDANSETRON 4 MG/2 ML VIAL IV PRN (15:45)
[2019-10-31 16:21] LABS: Absolute Lymphocytes (CBC) 1.8 K/uL (0.7-4.9); Basophils % 0.3 % (0-1.3); Hematocrit 35.8 % (36.0-45.0); Lymphocytes % 45.2 % (15.3-44.8); MPV 8.4 fL (7.6-11.3)
[2019-10-31] MEDS: INSULIN -REGULAR HUMAN 50 UNIT/0.5 ML ML SQ SCH ×2 (16:25→21:56)
[2019-10-31] MEDS: HYDRALAZINE HCL 20 MG/ML VIAL IV PRN ×2 (16:32→16:49)
[2019-10-31 16:38] LABS: Albumin 2.4 g/dL (3.4-5.0); Bilirubin Total 0.3 mg/dL (0.2-1.0); Potassium 3.6 mmol/L (3.5-5.1); Protein, Total 6.6 g/dL (6.4-8.2)
[2019-10-31] MEDS ORDERED: MANNITOL 25% 12.5 GM/50 ML VIAL IV PRN (20:44)
[2019-10-31] MEDS ORDERED: NA CHLORIDE 0.9% 1,000 ML IV PRN (20:44)
[2019-10-31] MEDS ORDERED: HOME MED 1 EA UNK (Insulin Detemir [Levemir] 25 UNITS) SQ SCH (21:00)
[2019-10-31] MEDS ORDERED: ALBUMIN HUMAN 25% 50 ML IV SCH (21:00)
[2019-10-31] MEDS: INSULIN GLARGINE 100 UNITS/ML SQ SCH (21:56)
--- NOTE | 2019-11-01 02:54 | CON ---
Date of Consultation: 10/31/2019 Diagnosis: End-stage renal disease on hemodialysis. Patient by accident pulled the hemodialysis cat heter. History Of Present Illness: This is a case of a 79-year-old patient with history of hypertension, di abetes, end-stage renal disease on hemodialysis. She presented to the ER after she pulled the hemodi alysis catheter by accident. Pressure was applied over the area before coming to the ER, no bleeding . The Renal Service was consulted and they requested tunneled hemodialysis catheter. The patient do es not remember exactly what happened. Allergies: CODEINE. Medications: Norvasc, Levemir. Medical History: As above. Social History: She does smoke, she does drink alcohol. Social history unremarkable. Review of Systems: Ten points otherwise unremarkable. Patient has history of some dementia. Physical Examination: General: Patient is awake and alert. HEENT: Pupils anicteric. Neck: Supple. Chest: Bilateral breath sounds. Patient has a hemodialysis catheter removed in the right side. Abdomen: Soft, depressible, nontender, nondistended. Extremities: Good capillary refill. Rectal: Deferred. Breasts: Deferred. Laboratory Data: Blood work shows WBC count of 3.9, hemoglobin of 11.5, with an INR pending. Creati nine is 3.15. Imaging Studies: Chest x-ray still pending and EKG still pending. Assessment: This is a 79-year-old patient in need for hemodialysis catheter. We need the chest x-ra y, we need INR, we need EKG. Patient came to the ER, but has not been done yet. So if that is done then we will proceed with the placement of a hemodialysis catheter with benefits, alternatives, and r isks including, but not limited to infection, bleeding, damage to adjacent structures, anesthesia com plications, pneumothorax, hemothorax, PE, cardiac arrhythmias, pericardiac tamponade, pericarditis, M I, even . She also understands this may not relieve any symptoms, she might need more than one surgical intervention. ANGELA/CONCEPCION Voice ID: [id number] Report ID: [id number]
[2019-11-01 04:38] LABS: Basophils % 1.2 % (0-1.3); Hematocrit 35.8 % (36.0-45.0); Lymphocytes % 22.1 % (15.3-44.8); MPV 8.7 fL (7.6-11.3)
[2019-11-01 05:15] LABS: Albumin 2.3 g/dL (3.4-5.0); Bilirubin Total 0.3 mg/dL (0.2-1.0); Magnesium 2.1 mg/dL (1.8-2.4); Phosphorus 3.3 mg/dL (2.5-4.9); Protein, Total 6.4 g/dL (6.4-8.2); Uric Acid 5.8 mg/dL (2.6-6.0)
[2019-11-01 05:16] LABS: Potassium 2.9 mmol/L (3.5-5.1)
[2019-11-01 05:25] LABS: Protime INR 0.98
[2019-11-01 06:08] LABS: Potassium 3.1 mmol/L (3.5-5.1)
[2019-11-01] MEDS ORDERED: NA CHLORIDE 0.9% 0 ML ONE (06:36)
[2019-11-01] MEDS ORDERED: NA CHLORIDE 0.9% 500 ML ONE (06:38)
[2019-11-01] MEDS ORDERED: NS 0.9% VIAL 10 ML ONE (06:44)
[2019-11-01] MEDS ORDERED: LIDOCAINE 1% 20 ML MDV ONE (06:45)
[2019-11-01] MEDS ORDERED: NA CHLORIDE 0.9% 100 ML IV ONE (06:45)
[2019-11-01] MEDS ORDERED: HEPARIN 5000 UNIT/ML 1 ML VIAL ONE (06:45)
[2019-11-01] MEDS ORDERED: CEFAZOLIN/SWI 1gm 1 GM/10 ML SYR ONE (06:59)
[2019-11-01] MEDS ORDERED: FENTANYL CITR 100 MCG/2 ML ONE (07:05)
[2019-11-01] MEDS ORDERED: LIDOCAINE 2% MPF 5 ML VIAL ONE (07:05)
[2019-11-01] MEDS ORDERED: propofoL 200 MG/20 ML VIAL IV ONE (07:05)
[2019-11-01] MEDS ORDERED: EPHEDRINE SULF 50 MG/ML VIAL ONE (07:22)
[2019-11-01] MEDS: INSULIN -REGULAR HUMAN 50 UNIT/0.5 ML ML SQ SCH ×4 (07:30→21:00)
--- NOTE | 2019-11-01 07:45 | P.BOP ---
Preoperative diagnosis: ESRD, Postoperative diagnosis: same Primary procedure: 1. Placement of Hemosplit hemodialysis tunneled catheter jugular vein Secondary procedure: 2. right neck ultrasound Other procedure(s): 3. Interpretation of fluoroscopy Estimated blood loss: <10cc Specimen: none Findings: as above Anesthesia: MAC Complications: None Implants: hemosplit RIJ Transferred to: Recovery Room Condition: Good
[2019-11-01] MEDS ORDERED: TRAMADOL 37.5mg/APAP 325mg PER TAB PO PRN (07:50)
[2019-11-01] MEDS ORDERED: carvediloL 12.5 MG TAB PO SCH (08:00)
--- NOTE | 2019-11-01 08:22 | RAD REPORT ---
EXAM DESCRIPTION: RAD - Fluoroscopy <1 Hour - 11/01/2019 7:41 am CLINICAL HISTORY: Venous catheter insertion. HEMOSPLIT CATH PLACEMENT IN OR3 COMPARISON: No comparisons FINDINGS: Fluoroscopic imaging is submitted from placement of a venous catheter. Details of the pro cedure not available. Fluoroscopy time: 0.4 minutes
--- NOTE | 2019-11-01 08:22 | RAD REPORT ---
EXAM DESCRIPTION: RAD - Chest Single View - 11/01/2019 8:12 am CLINICAL HISTORY: s/p HD catheter Chest pain. COMPARISON: Chest Single View dated 11/01/2019; Chest Single View dated 09/25/2019; Chest Single View d ated 09/04/2019; Chest Pa And Lat (2 Views) dated 12/19/2016 FINDINGS: Portable technique limits examination quality. Right-sided venous catheter has been placed with its tip in the SVC. No postprocedure pneumothorax se en. The heart is normal in size.Aortic atherosclerosis. IMPRESSION: No postprocedure pneumothorax.
--- NOTE | 2019-11-01 08:32 | P.CNS ---
Date of Consult: 11/01/19 Reason for Consult: ESRD Requesting Physician: Prince Inge Ren Chief Complaint: Patient removed her HD catheter History of Present Illness: 79 yo HF presented to the ER after pulling out her HD CVC. Her switchboard clerk is Dr. Manoj Agrawal and follows her at the [facility]. The case was reviewed with Dr. Agrawal. Patient is a 79 year old female with a PMH of dementia, HTN, IDDM and ESRD on HD TTS since Jul 2019 . She follows up with Dr. Garcia at [facility]. She presents to the ER after she pulled her HD catheter. During our encounter, patient was without visible signs of distress or injury. She is a poor historian due to her dementia. She was last dialyzed on 10/30/2019. Daughter called at [phone] for additional information. She states patient has been really agitated for the past few months. She has been non-compliant with her medications due to her agitations, fall and left hip fracture Jul 2019. She was hospitalized at [facility]. 11:38 This 79 yrs old Female presents to ER via EMS with complaints of Dialysis jr8 Catheter Problem, pulled out dialysis catheter. 11:38 The patient has a dialysis catheter in the right subclavian area. Type of problem: jr8 pulled catheter . Onset: The symptoms/episode began/occurred acutely, today. The malfunction was discovered at home. Dialysis schedule: . Associated signs and symptoms: Pertinent positives: None. It is unknown whether or not the patient has had similar symptoms in the past. The patient has not recently seen a physician. Sister of patient found that she had pulled catheter. Patient with severe dementia history . Allergies codeine Allergy (Intermediate, Verified 12/19/16 13:31) Itching/Hives/Rash Home medications list reviewed: Yes Home Medications: Amlodipine [Norvasc*] 10 mg PO DAILY 12/19/16 Insulin Detemir [Levemir] 25 units SQ BID 12/19/16 Aspirin 81 mg PO DAILY 10/31/19 Atorvastatin Calcium [Lipitor*] 20 mg PO DAILY 10/31/19 Carvedilol [Coreg] 12.5 mg PO Q12H 10/31/19 Docusate Sodium 100 mg PO DAILY 10/31/19 Insulin Aspart [Novolog Flexpen] 5 units SQ DAILY 10/31/19 LORazepam [Ativan*] 0.5 mg PO TID 10/31/19 Levothyroxine Sodium 25 mcg PO DAILY 10/31/19 Pantoprazole [Protonix Tab*] 40 mg PO DAILY 10/31/19 Pentoxifylline 400 mg PO TID 10/31/19 hydrOXYzine HCL [Atarax*] 25 mg PO TID 10/31/19 - Past Medical/Surgical History Diabetic: Yes -: HTN,IDDM,CVA -: kidney failure -: PNE - Family History Mother Medical History: Heart disease - Social History Alcohol use: No CD- Drugs: No Caffeine use: No Place of Residence: Home Review of Systems is unable to be obtained General: Weakness, Malaise Physical Examination Temp Pulse Resp BP Pulse Ox 97 F 67 16 173/60 H 98 11/01/19 08:24 11/01/19 08:24 11/01/19 08:24 11/01/19 08:24 11/01/19 04:00 General: In no apparent distress, Cooperative HEENT: Atraumatic Neck: Supple Respiratory: Clear to auscultation bilaterally Cardiovascular: No edema, Regular rate/rhythm Gastrointestinal: Soft and benign, Non-distended Musculoskeletal: No clubbing, No contractures Integumentary: No rashes, No cyanosis Neurological: Normal speech Laboratory Data (last 24 hrs) 10/31/19 11:39: PT Cancelled, INR Cancelled 10/31/19 11:39: Sodium Cancelled, Potassium Cancelled, BUN Cancelled, Creatinine Cancelled, Glucose Cancelled 10/31/19 11:39: WBC Cancelled, Hgb Cancelled, Hct Cancelled, Plt Count Cancelled Imagings Data: CXR: Clear Conclusions/Impression: A/ ESRD on HD Recently pulled out her CVC. HTN with CKD/ CHF. Diastolic CHF, chronic. DM II with CKD. Anemia in CKD. ERLIN/ Secondary HyperPTH. P/ Continue current POC and Medications. HD CVC placed this morning. Arrange for acute HD today. Restart home medications as indicated. Start Vitamin D. No NSAIDs. Check Hepatitis panel. AM labs PRN. Daily weight. Case reviewed with Dr. Ren Thank you kindly for the consultation. Possible discharge today after HD. She will follow up with her switchboard clerk Dr. Agrawal at the [facility].
--- NOTE | 2019-11-01 08:43 | RAD REPORT ---
EXAM DESCRIPTION: RAD - Chest Single View - 11/01/2019 2:31 am CLINICAL HISTORY: Pre-op Clearance Chest pain. COMPARISON: Chest Single View dated 09/25/2019; Chest Single View dated 09/04/2019; Chest Pa And Lat (2 Views) dated 12/19/2016; CHEST PA AND LAT 2 VIEW dated 06/28/2013 FINDINGS: Portable technique limits examination quality. The lungs are grossly clear. The heart is normal in size. No displaced fractures.Aortic arthroscleros is. IMPRESSION: No acute intrathoracic process suspected.
[2019-11-01] MEDS ORDERED: DOCUSATE NA 100 MG CAP PO SCH (09:00)
[2019-11-01] MEDS ORDERED: PENTOXIFYLLINE ER 400 MG TAB PO SCH (09:00)
[2019-11-01] MEDS ORDERED: ATORVASTATIN 20 MG TAB PO SCH (09:00)
[2019-11-01] MEDS: INSULIN GLARGINE 100 UNITS/ML SQ SCH ×2 (09:00→21:00)
[2019-11-01] MEDS ORDERED: INSULIN ASPART 5 UNIT SQ SCH (09:00)
[2019-11-01] MEDS ORDERED: ASPIRIN 81 MG CHEWABLE TABLET PO SCH (09:00)
[2019-11-01] MEDS ORDERED: LEVOTHYROXINE SOD 0.025 MG TAB PO SCH (09:00)
[2019-11-01] MEDS: CALCITROL 0.25 MCG CAP PO SCH (09:28)
[2019-11-01] MEDS: VITAMIN D 5,000 UNIT CAP PO SCH (09:28)
[2019-11-01] MEDS: AMLODIPINE 10 MG TAB PO SCH (09:28)
[2019-11-01] MEDS: MULTIVITAMINS,THERAPEUT 1 TAB PO SCH (09:30)
--- NOTE | 2019-11-01 12:00 | OP ---
Date of Procedure: 11/01/2019 Surgeon: Ruddy Garcia MD Preoperative Diagnosis: End-stage renal disease in need of hemodialysis catheter. Postoperative Diagnosis: End-stage renal disease in need of hemodialysis catheter. Procedures: 1.Placement of hemodialysis HemoSplit tunneled catheter internal jugular vein. 2.Interpretation of fluoroscopy. 3.Right neck ultrasound for line placement. Anesthesia: MAC plus local anesthetic. Complications: None. Implant: HemoSplit 19 cm. Indications: This is the case of a 79-year-old patient who by accident removed her hemodialysis cath eter where she was receiving the service. The patient was brought to the hospital and then I was req uested to place a new hemodialysis tunneled catheter since the patient needed for treatment. The korina efits, alternatives, and risks were explained to the family and to the patient which include, but are not limited to infection, bleeding, damage to adjacent structures, anesthesia complication, pneumoth orax, hemothorax, pericardiac tamponade, pericarditis, DVT, PE, endocarditis, GA, even . She al so understands this may not relieve any symptoms, she might need more than one surgical intervention. She understood, consent was signed. Description Of Procedure: Patient was brought to the operating room, placed in supine position. Ane sthesia was done without complication. Right neck and chest were prepped and draped in a sterile fas hion. Patient was placed in a Trendelenburg position. A time-out was called. Ultrasound was done o f the right neck and that ultrasound also helped me guide the needle into what apparently is a functi onal vein. An 18-gauge needle was placed in that vein and guidewire was advanced with fluoroscopy in to the superior vena cava. Needle was removed. No incision was made in the right upper chest and we tunneled our catheter from that incision into the incision of the neck. Sequential dilators were pl aced over the guidewire with fluoroscopy guidance including the introducer catheter. The guidewire w as removed. The catheter was placed in and then the introducer catheter was peeled off carefully. W monik did fluoroscopy once again and it showed the catheter to be intact with no kink, excellent backflow and inflow. The line was flushed with heparinized solution. Patient tolerated the procedure well. The catheter was secured in place with 3-0 nylon and also the subcutaneous tissue was closed with 3- 0 chromic and Steri-Strip. Patient was brought back from Trendelenburg position to normal position. Patient tolerated the procedure well. Patient was sent to recovery room in stable condition with a chest x-ray ordered stat. ANGELA/CONCEPCION Voice ID: [id number] Report ID: [id number]
--- NOTE | 2019-11-01 14:50 | P.DS ---
Admission Date: 10/31/19 Discharge Date: 11/01/19 Disposition: ROUTINE DISCHARGE Discharge Condition: GOOD Reason for Admission: Patient removed her HD catheter - Problems (1) ESRD (end stage renal disease) on dialysis Current Visit: Yes Status: Acute (2) Hemodialysis catheter malfunction Current Visit: Yes Status: Acute (3) Hypertension Current Visit: Yes Status: Acute Brief History of Present Illness: Patient is a 79 year old female with a PMH of dementia, HTN, IDDM and ESRD on HD TTS since Jul 2019 . She follows up with Dr. Garcia at [facility]. She presents to the ER after she pulled her HD catheter. During our encounter, patient was without visible signs of distress or injury. She is a poor historian due to her dementia. She was last dialyzed on 10/30/2019. Daughter called at [phone] for additional information. She states patient has been really agitated for the past few months. She has been non-compliant with her medications due to her agitations, fall and left hip fracture Jul 2019. She was hospitalized at [facility]. Hospital Course: Patient is a 79 year old female with a PMH of dementia, HTN, IDDM and ESRD on HD TTS since Jul 2019 . She was admitted after she removed her hemodialysis tunnelled catheter. General surgery replaced the catheter on 10/31. She will be dialyzed and discharged if BP is stable Vital Signs/Physical Exam: Temp Pulse Resp BP Pulse Ox 97.1 F 76 16 156/67 H 98 11/01/19 12:00 11/01/19 12:00 11/01/19 12:00 11/01/19 12:00 11/01/19 12:00 General: Alert, In no apparent distress, Cooperative, Cachectic, Demented, Confused HEENT: Atraumatic, Normocephalic, EOMI Neck: Supple Respiratory: Clear to auscultation bilaterally, Normal air movement Cardiovascular: Normal pulses, Regular rate/rhythm, Normal S1 S2, Other (right sided tunnelled HD catheter) Gastrointestinal: Normal bowel sounds, Soft and benign, Non-distended Musculoskeletal: No clubbing, No swelling, No contractures, No erythema, No tenderness, No warmth Neurological: Dementia Laboratory Data at Discharge: WBC 4.5 K/uL (4.3-10.9) D 11/01/19 03:45 Hgb 11.6 g/dL (12.0-15.0) L 11/01/19 03:45 Hct 35.8 % (36.0-45.0) L 11/01/19 03:45 Plt Count 306 K/uL (152-406) D 11/01/19 03:45 PT 11.6 SECONDS (9.5-12.5) 11/01/19 03:45 INR 0.98 11/01/19 03:45 APTT 32.9 SECONDS (24.3-36.9) 11/01/19 03:45 Sodium 137 mmol/L (136-145) 11/01/19 05:42 Potassium 3.1 mmol/L (3.5-5.1) L 11/01/19 05:42 BUN 22 mg/dL (7-18) H 11/01/19 05:42 Creatinine 3.62 mg/dL (0.55-1.3) H 11/01/19 05:42 Glucose 169 mg/dL (74-106) H 11/01/19 05:42 Uric Acid 5.8 mg/dL (2.6-6.0) 11/01/19 03:45 Phosphorus 3.3 mg/dL (2.5-4.9) 11/01/19 03:45 Magnesium 2.1 mg/dL (1.8-2.4) 11/01/19 03:45 Total Bilirubin 0.3 mg/dL (0.2-1.0) 11/01/19 03:45 AST 22 U/L (15-37) 11/01/19 03:45 ALT 10 U/L (12-78) L 11/01/19 03:45 Alkaline Phosphatase 62 U/L (45-117) 11/01/19 03:45 Home Medications: Amlodipine [Norvasc*] 10 mg PO DAILY 12/19/16 Insulin Detemir [Levemir] 25 units SQ BID 12/19/16 Aspirin 81 mg PO DAILY 10/31/19 Atorvastatin Calcium [Lipitor*] 20 mg PO DAILY 10/31/19 Carvedilol [Coreg] 12.5 mg PO Q12H 10/31/19 Docusate Sodium 100 mg PO DAILY 10/31/19 Insulin Aspart [Novolog Flexpen] 5 units SQ DAILY 10/31/19 LORazepam [Ativan*] 0.5 mg PO TID 10/31/19 Levothyroxine Sodium 25 mcg PO DAILY 10/31/19 Pantoprazole [Protonix Tab*] 40 mg PO DAILY 10/31/19 Pentoxifylline 400 mg PO TID 10/31/19 hydrOXYzine HCL [Atarax*] 25 mg PO TID 10/31/19
[2019-11-01 15:47] VITALS: O2SAT 98
[2019-11-01] MEDS: NEPRO SHAKE 237 ML CAN PO SCH (21:12)
[2019-11-02 06:23] LABS: Potassium 3.6 mmol/L (3.5-5.1)
[2019-11-02] MEDS: INSULIN -REGULAR HUMAN 50 UNIT/0.5 ML ML SQ SCH (07:30)
[2019-11-02] MEDS: INSULIN GLARGINE 100 UNITS/ML SQ SCH (09:00)
[2019-11-02] MEDS: CALCITROL 0.25 MCG CAP PO SCH (09:00)
[2019-11-02] MEDS: AMLODIPINE 10 MG TAB PO SCH (09:00)
[2019-11-02] MEDS: MULTIVITAMINS,THERAPEUT 1 TAB PO SCH (09:00)
[2019-11-02] MEDS: VITAMIN D 5,000 UNIT CAP PO SCH (09:00)
[2019-11-02] MEDS: NEPRO SHAKE 237 ML CAN PO SCH (09:00)
[2019-11-02 09:48] VITALS: BP 186/81; TEMP 97.9
--- NOTE | 2019-11-02 11:24 | EKG ---
Test Date: 2019-10-31 Test Time: 23:52:00 Manager English: RT MEASUREMENT RESULTS: Intervals: Rate: 65 MN: 138 QRSD: 100 QT: 440 QTc: 457 Dillon: P: 57 MN: 138 QRS: -9 T: 145 INTERPRETIVE STATEMENTS: Normal sinus rhythm ST & T wave abnormality, consider anterolateral ischemia Abnormal ECG Compared to ECG 09/25/2019 14:09:47 Ventricular premature complex(es) no longer present ST (T wave) deviation still present Possible ischemia still present Electronically Signed On 11-02-19 11:21:55 CDT by Derek Spring
--- NOTE | 2019-11-02 22:20 | P.PN ---
Date of Service: 11/02/19 Vital Signs Temp Pulse Resp BP Pulse Ox 97.9 F 72 17 186/81 H 98 11/02/19 08:00 11/02/19 08:00 11/02/19 08:00 11/02/19 08:00 11/02/19 08:00 Assessment/ Plan: Nephrology Feeling better today. +Appetite CPS stable without CP or SOB. No acute events overnight. Vitals, medications, blood work and imaging reviewed in the chart. General: In no apparent distress, Cooperative HEENT: Atraumatic Neck: Supple Respiratory: Clear to auscultation bilaterally Cardiovascular: No edema, Regular rate/rhythm Gastrointestinal: Soft and benign, Non-distended Musculoskeletal: No clubbing, No contractures Integumentary: No rashes, No cyanosis Neurological: Normal speech Laboratory Data (last 24 hrs) 10/31/19 11:39: PT Cancelled, INR Cancelled 10/31/19 11:39: Sodium Cancelled, Potassium Cancelled, BUN Cancelled, Creatinine Cancelled, Glucose Cancelled 10/31/19 11:39: WBC Cancelled, Hgb Cancelled, Hct Cancelled, Plt Count Cancelled Imagings Data: CXR: Clear Conclusions/Impression: A/ ESRD on HD Recently pulled out her CVC. HTN with CKD/ CHF. Diastolic CHF, chronic. DM II with CKD. Anemia in CKD. ERLIN/ Secondary HyperPTH. P/ Continue current POC and Medications. Next HD tomorrow. No NSAIDs. AM labs PRN. Daily weight.
[2019-11-04 18:11] LABS: HBsAG Nonreactive (Nonreactive)
== END 2019-11-02 10:19 | disposition home or self-care (01) ==
LOC: ER 10:20 → INTOOBSV 14:07 → 2ND 14:07
PROVIDERS: ADMIT Internal Medicine; ATTEND Internal Medicine
PROC: 05HM33Z Insertion of Infusion Device into Right Internal Jugular Vein, Percutaneous Approach (ICD-10-PCS; principal; 2019-11-01 07:00)
DX: T82.42XA Displacement of vascular dialysis catheter, initial encounter (principal); I13.2 Hypertensive heart and chronic kidney disease with heart failure and with stage 5 chronic kidney disease, or end stage renal disease; I50.32 Chronic diastolic (congestive) heart failure; E11.22 Type 2 diabetes mellitus with diabetic chronic kidney disease; N18.6 End stage renal disease; F03.91 Unspecified dementia, unspecified severity, with behavioral disturbance; D63.1 Anemia in chronic kidney disease; N25.81 Secondary hyperparathyroidism of renal origin; Z99.2 Dependence on renal dialysis; Z86.73 Personal history of transient ischemic attack (TIA), and cerebral infarction without residual deficits
CPT/HCPCS: 93005; 85025 ×2; 80048 ×2; 36415 ×3; 83735 ×2; 84100; 85610; 82947 ×9; 84550; 85730; 80053 ×2; 86704; 86317; 87340; 71045 ×2; 90935; 99285; 36558; J0360; J2704; J1644 ×4; J3010; J0690; J7040; C1752; G0378 ×4; 76000; J1815; J7030

== ENCOUNTER 2020-04-03 21:09 | Emergency (ER) | payer OTHER ==
--- OUTSIDE RECORDS SUMMARY | 2020-04-03 21:14 | XMS REPORT | Clinical Summary ---
:1940 Author Organization [facility] Address [address] [place] [address] Care Team Providers Name Role Phone Srinivasan [...] hyperglycemia, with long-term current use of insulin ([facility]) blood-glucose meter Use as 1 each 0 08/27/19 Active kitIndications: Type 2 instructed 20 021 diabetes mellitus with hyperglycemia, with long-term current use of insulin ([facility]) lancets Use one 200 each 3 08/29/19 Active miscIndications: Type 2 lancet two 20 diabetes mellitus with times a day hyperglycemia, with for glucose long-term current use of insulin ([facility]) blood sugar diagnostic Use one test 200 strip 3 10/08/19 Active strips (glucose blood) strip two 20 strip test times daily stripsIndications: Type for blood 2 diabetes mellitus sugar with hyperglycemia, with long-term current use of insulin ([facility]) levothyroxine Take 1 tablet 90 tablet 3 10/16/19 Ac tive (SYNTHROID) 50 mcg (50 mcg 20 tabletIndications: total) by Hypothyroidism, mouth daily. unspecified type pentoxifylline TAKE 1 TABLET 180 tablet 3 10/16/19 Active (TRENTal) 400 mg CR BY MOUTH 20 tabletIndications: PAD TWICE A DAY (peripheral artery disease) ([facility]) clotrimazole-betamethas Apply 45 g 2 01/04/20 Active one (Lotrisone) 1-0.05 topically 2 20 021 % creamIndications: (two) times a Dermatitis day. insulin detemir Inject 25 0 Disc ontinued (LEVEMIR FLEXPEN SUBQ) Units under 020 the skin 2 (two) times a day. metFORMIN (GLUCOPHAGE) TAKE 1 TABLET 180 tablet 0 12/30/19 Discontinued 1,000 mg (1,000 MG 18 020 tabletIndications: TOTAL) BY Start us on 09/22/2017 MOUTH 2 (TWO) TIMES A DAY WITH MEALS. empagliflozin Take 1 tablet 30 tablet 2 01/16/20 Di scontinued (JARDIANCE) 25 mg (25 mg total) 18 020 (Stop Taking at tabletIndications: Type by mouth Discharge) 2 diabetes mellitus daily. with hyperglycemia, with long-term current use of insulin ([facility]) pentoxifylline 1 tablet 2x a 180 tablet 3 04/26/20 Discontinued (TRENTal) 400 mg CR day for 90 18 020 tabletIndications: PAD days (peripheral artery disease) ([facility]) lisinopril Take 1 tablet 30 tablet 11 09/14/19 Disco ntinued (PRINIVIL,ZESTRIL) 40 (40 mg total) 19 020 (Stop Taking at mg tabletIndications: by mouth Discharge) Essential hypertension daily. hydroCHLOROthiazide Take 1 tablet 30 tablet 11 09/14/19 Discontinued (HYDRODIURIL) 12.5 MG (12.5 mg 19 020 (Stop Taking at tabletIndications: total) by D ischarge) Essential hypertension mouth daily. glimepiride (AMARYL) 4 TAKE 1 TABLET 90 tablet 0 10/08/1907/22 Discontinued MG tabletIndications: BY MOUTH 019 (Reorder) Type 2 diabetes EVERY DAY mellitus with BEFORE hyperglycemia, with BREAKFAST long-term current use of insulin ([facility]) blood-glucose meter Use as 1 each 0 12/29/19 Discontinued kitIndications: Type 2 instructed 020 (Reorder) diabetes mellitus with hyperglycemia, with long-term current use of insulin ([facility]) blood sugar diagnostic Use one test 200 strip 3 12/29/19/08/19 Discontinued strips (FREESTYLE LITE strip two (Stop Taking at STRIPS) strip test times a day Discharge) stripsIndications: Type for glucose 2 diabetes mellitus with hyperglycemia, with long-term current use of insulin ([facility]) lancets Use one 200 each 3 12/29/19 Discontinu ed miscIndications: Type 2 lancet two (Reorder) diabetes mellitus with times a day hyperglycemia, with for glucose long-term current use of insulin ([facility]) levothyroxine TAKE 1 TABLET 30 tablet 2 01/07/20 Di scontinued (SYNTHROID, LEVOXYL) 50 BY MOUTH (Reorder) mcg tabletIndications: EVERY DAY Hypothyroidism, unspecified type LEVEMIR FLEXTOUCH U-100 INJECT SUB 35 45 pen 1 03/02/20 Discontinued INSULN 100 unit/mL (3 UNITS EVERY (Stop Taking at mL) insulin pen 12 HOURS Disc harge) carvedilol (COREG) 6.25 TAKE 1 TABLET 180 tablet 1 03/23/20 0 Discontinued MG tabletIndications: BY MOUTH (Stop Taking at Essential hypertension TWICE A DAY Discharge) levothyroxine TAKE 1 TABLET 90 tablet 0 04/05/20 Di scontinued (SYNTHROID) 50 mcg BY MOUTH tabletIndications: EVERY DAY Hypothyroidism, unspecified type glimepiride (AMARYL) 4 TAKE 1 TABLET 90 tablet 0 04/22/2008/19 Discontinued MG tabletIndications: BY MOUTH (Stop Taking at Type 2 diabetes EVERY DAY Disc harge) mellitus with BEFORE hyperglycemia, with BREAKFAST long-term current use of insulin ([facility]) levothyroxine TAKE 1 TABLET 90 tablet 1 07/01/19 Di scontinued (SYNTHROID) 50 mcg BY MOUTH 20 020 ( Reorder) tabletIndications: EVERY DAY Hypothyroidism, [...] Take 1 tablet 30 tablet 3 08/21/19 40 MG EC tablet (40 mg total) [...] Discontinued ph-DM 2-30-10 mg/5 mL mouth 3 20 020 (Stop Taking at syrupIndications: Cough (three) [...] diagnostic Use one test 200 strip 3 08/29/19/07 25/ Discontinued strips (glucose blood) strip two 20 020 (Stop Taking at strip test times daily Dischar ge) stripsIndications: Type for glucose 2 diabetes mellitus with hyperglycemia, with long-term current use of insulin ([facility]) acetaminophen (TYLENOL) Take 2 60 tablet [...] PAD TWICE A DAY (peripheral artery disease) ([facility]) QUEtiapine (SEROqueL) Take 1 tablet 30 tablet 0 12/14/1912/19 25 MG (25 mg total) 20 020 tabletIndications: by mouth Dementia with nightly for behavioral disturbance, 30 days. unspecified dementia type ([facility]) polyethylene glycol Take 17 g by 30 packet 0 12/14/19 (MIRALAX) 17 gram mouth daily 20 020 packetIndications: for 30 days. Constipation, unspecified constipation type docusate sodium Take 1 60 capsule 0 12/14/19 Exp ired (Colace) 100 MG capsule (100 20 020 capsuleIndications: mg total) by Constipation, mouth 2 (two) unspecified times a day constipation type for 30 days. LORAZepam (Ativan) 0.5 Take 0.5 15 tablet 0 01/04/20 MG tabletIndications: tablets (0.25 20 020 Dementia with mg total) by behavioral disturbance, mouth every 6 unspecified dementia (six) hours type (HCC) as needed (combativenes s) for up to 30 days. Active Problems Problem Noted Date Closed left hip fracture 09/04/2019 Closed fracture of left hip 09/04/2019 Overview: Added automatically from request for augustus carrol [id number] Gastrointestinal bleed 08/12/2019 Acute pulmonary edema 08/07/2019 Hematoma of groin 03/07/2018 PAD (peripheral artery disease) 02/08/2018 Overview: Added automatically from request for surgery [id number] Last Assessment & Plan: Improved symptoms. Continue medical optimization. Continue cilostazol. Follow-up in 6 months with ABIs and TBI's. PVD (peripheral vascular disease) 09/19/2017 Type 2 diabetes mellitus with hyperglycemia, with long -term current use of 03/10/2017 insulin Essential hypertension 03/10/2017 Mixed hyperlipidemia 03/10/2017 Encounters Date Type Specialty Care Team Description 01/04/2020 Telephone Consult Internal Medicine Srinivasan Forbes with behavioral disturbance, unspecified dementia type (HCC) (Primary Dx); MD Viktoria Dermatitis 12/14/2019 Telephone Consult Internal Medicine Srinivasan Forbes with behavioral disturbance, unspecified dementia type (HCC) (Primary Dx); MD Viktoria Constipation, u nspecified constipation type 12/12/2019 Travel 11/19/2019 Abstract Orthopedic Surgery Audelia Archer MA 11/14/2019 Telephone Consult Internal Medicine Srinivasan Forbes Co nfusion (Primary Dx); MD Viktoria Type 2 diabetes mellitus with chronic kidney disease on chronic dialysis, with long-term current use of insulin (HCC); ESRD (end stage renal disease) on dialysis (HCC) 11/13/2019 Travel 11/08/2019 Telephone Internal Medicine Kathy Hui MA 10/24/2019 Telemedicine Internal Medicine Srinivasan Fobres PVD (skip Blum MD vascular diseas e) ([facility]) (Primary Dx) 10/24/2019 Travel 10/16/2019 Orders Only Internal Medicine Srinivasan Forbes Hypothy roidism, unspecified type; MD Viktoria PAD (peripheral artery disease) ([facility]) 10/08/2019 Orders Only Internal Medicine Petty De Oliveira, Type 2 diabetes MA mellitus with hyperglycemia, with long-term curre nt use of insulin ([facility]) (Primary Dx) 10/08/2019 Refill Cardiovascular Srinivasan Forbes PAD (robyn Blum MD artery disease) ([facility]) 10/02/2019 Hospital Encounter Radiology Nino Panda MD 10/02/2019 Abstract Orthopedic Surgery Audelia Archer [place] 09/27/2019 Telephone Cardiovascular Suzanna Bella RN 09/21/2019 Travel 09/20/2019 Travel 09/07/2019 Anesthesia Event Orthopedic Surgery Jm Magana MD Koshy, Hima 09/07/2019 Surgery Orthopedic Surgery Nino Panda, JENP Shraddha Dove MD ARTHROPLASTY, L EFT HIP 09/04/2019 Hospital Encounter Orthopedic Surgery Dorota Murillo Closed fracture of left hip, initial encounter ([facility]) (Primary Dx); Cristina Rodney Sr., MD Type 2 diabetes mellitus with hyperglycemia, with long-term current use of insulin ([facility]); 09/12/2019 Mixed hyperlipi demia; PVD (peripheral vascular disease) ([facility]); PAD (peripheral artery disease) ([facility]); Essential hyper tension 09/04/2019 Travel 08/30/2019 Telephone Internal Medicine Petty De Oliveira MA 08/29/2019 Orders Only Internal Medicine Petty De Oliveira, Type 2 diabetes MA mellitus with hyperglycemia, with long-term curre nt use of insulin ([facility]) 08/28/2019 Telephone Internal Medicine Petty De Oliveira MA 08/28/2019 Orders Only Internal Medicine Srinivasan Forbes ESRD (monik Blum MD renal disease) ([facility]) (Primary Dx) 08/28/2019 Orders Only Internal Medicine Srinivasan Forbes Acute c sophia Blum MD without hematur ia (Primary Dx) 08/27/2019 Hospital Encounter Radiology Srinivasan Forbes MD 08/27/2019 Office Visit Internal Medicine Srinivasan Forbes Type 2 diabetes mellitus with hyperglycemia, with long-term current use of insulin ([facility]) (Primary Dx); MD Viktoria Essential hyper tension; Cough; Acute cystitis without hematuria; Debility 08/27/2019 Travel 08/21/2019 Telephone Internal Medicine De Oliveira, PettyRUTHIE 08/07/2019 Hospital Encounter Cardiology Gabino Feliz Acute re nal failure on dialysis ([facility]) (Primary Dx); Cristina Powell MD Acute pulmonary edema ([facility]); 08/21/2019 Dorota Murillo Acute blood loss anemia; Rashaun Zimmer MD Type 2 diabetes mellitus with hyperglycemia, with long-term current use of insulin ([facility]); Essential hyper tension; Mixed hyperlipi demia; PAD (peripheral artery disease) ([facility]); PVD (peripheral vascular disease) ([facility]) 07/01/2019 Refill Internal Medicine Srinivasan Forbes J., MD unspecified typ e 04/21/2019 Refill Internal Medicine Srinivasan Forbes 2 orcío Blum MD mellitus with hyperglycemia, with long-term curre nt use of insulin ([facility]) 04/11/2019 Office Visit Cardiovascular [place], PAD (peripher al Charudatta artery disease) MD Maicol ([facility]) (Primary Dx) 04/05/2019 Refill Internal Medicine Srinivasan Forbes J., MD unspecified typ e after 04/03/2019 Immunizations Name Administration Dates Next Due FLUZONE HIGH-DOSE PF 03/01/2018, 03/10/2017 Pneumococcal Conjugate 13-Valent 05/31/2018 Surgical History Surgery Date Site/Laterality Comments CATARACT EXTRACTION Bilateral CARPAL TUNNEL RELEASE Bilateral SECTION TOTAL KNEE ARTHROPLASTY Right HYSTERECTOMY ovaries removed CARDIAC CATHETERIZATION 09/19/2017 N/A Procedur e: Aortagram abdomen w run of f; Surgeon: Renuka Orlando MD; Location: [facility] [employer] Manager Invasive Locatio n; Service: Cardiov ascular; Laterality: N/A; ARTERIOGRAM WITH ANGIOPLASTY, IF 12/27/2017 Groin/Right Procedure: left lower INDICATED extremity arteri ogram angioplasty righ t popliteal artery and right peroneal artery; Surgeon : Nemesio Vides MD; [facility]; [facility]; Laterality: Righ t; Medical devices from this surgery are in t he Implants section. CARDIAC CATHETERIZATION 12/26/2017 N/A Procedur e: Aortagram abdomen w run of f; Surgeon: Renuka Orlando MD; Location: [facility] [employer] Manager Invasive Locatio n; Service: Cardiov ascular; Laterality: N/A; ARTERIOGRAM WITH ANGIOPLASTY, IF 03/07/2018 Right Procedure: RIGHT LOWER INDICATED EXTREMITY ANGIOG JOHNNIE AND ANGIOPLASTY; Morel rgeon: Nemesio Vides MD; [facility]; [facility]; Laterality: Righ t; Medical devices from this surgery are in t he Implants section. ARTERIOGRAM WITH ANGIOPLASTY, IF 03/21/2018 Left Procedure: ARTERIOGRAM OF INDICATED LEFT LOWER EXTER EMITY, ANGIOPLASTY OF L EFT PERITONEAL & SFA ; Surgeon: Nemesio Vides MD; Location: [facility]; [facility]; Laterality: Left ; Medical devices from this surgery are in t he Implants section. PINNING, HIP, PERCUTANEOUS 09/07/2019 Hip/Left Proce dure: CRPP VS ARTHROPLASTY, LE FT HIP; Surgeon: Jamil Panda MD; Location: [facility] OR; Service: Or thopedics; Laterality: Left ; Medical devices from this surgery are in t he Implants section. Medical History Medical History Date Comments Essential hypertension Diabetes mellitus (HCC) Hyperlipidemia PAD (peripheral artery disease) (HCC) Stroke (HCC) TIA x2 Anesthesia NHAP NFHAP , No exer cise, missing some teeth, No CP or SOB. Dementia (HCC) Renal disorder TIA (transient ischemic attack) 20 years ago No resid ual affects, TIA x 3 Renal failure Tues, Th, and Sat , last dialysis 09/06/19 Family History Medical History Relation Name Comments Heart disease Father Stroke Mother Relation Name Status Comments Father Mother Social History Tobacco Use Types Packs/Day Years Used Date Former Smoker Quit: 1999 Smokeless Tobacco: Never Used Comments: socially Alcohol Use Drinks/Week oz/Week Comments No Sex Assigned at Date Recorded Not on file Last Filed Vital Signs Vital Sign Reading [...] 05/31/2018 PPSV23) DIABETIC FOOT EXAM 09/14/2019 09/13/2018, 08/29/2017 URINE MICROALBUMIN 09/14/2019 09/13/2018, 09/02/2017, 03/01/2017 DIABETIC RETINAL EYE EXAM 01/19/2020 01/18/2018 INFLUENZA VACCINE 01/19/2020 03/01/2018, 03/01/2018, 03/10/2017 Implants Implanted Type Area Dietitian Teacher Device Shelf Model / Identifier Expiration Serial / Date Lot Device Vasclr Clsr Baln Cath 10ml Lkng Syr 5fr Morin nxgrip - [id number] Cardiovascular N/A: N/A ACCESS CLOSURE 11/18/2019 [id number] / Implanted: 12/27/2017 at [facility] (Quantity not on file) [employer] / [id number] Device Vasclr Clsr Baln Cath 10ml Lkng Syr 5fr Morin nxgrip - [id number] Cardiovascular N/A: N/A ACCESS CLOSURE 12/18/2019 [id number] / Implanted: 03/07/2018 at [facility] (Quantity not on file) [employer] / [id number] Device Vasclr Clsr Baln Cath 10ml Lkng Syr 5fr Morin nxgrip - [id number] Cardiovascular N/A: N/A ACCESS CLOSURE 02/18/2020 [id number] / Implanted: Qty: 1 on 03/21/2018 by Nemesio Mistry MD at [facility] [employer] INC / [id number] Screw Bone Canltd Thred Lg Hxgnl Socket Ss [id number] - [id number] Orthopedic Trauma Left: SYNTHES TRAUMA 208 870 / Implanted: 09/07/2019 at [facility] (Quantity not on file) Imp lants Hip AND RECON / Screw Bone Canltd Thred Lg Hxgnl Socket Ss [id number] - [id number] Orthopedic Trauma Left: SYNTHES TRAUMA 208 875 / Implanted: 09/07/2019 at [facility] (Quantity not on file) Imp lants Hip AND RECON / Screw Bone Canltd Thred Lg Hxgnl Socket Ss [id number] - [id number] Orthopedic Trauma Left: SYNTHES TRAUMA 209 870 / Implanted: 09/07/2019 at [facility] (Quantity not on file) Imp lants Hip AND RECON / Screw Bone Canltd Thred Lg Hxgnl Socket Ss [id number] - [id number] Orthopedic Trauma Left: SYNTHES TRAUMA 209 875 / Implanted: 09/07/2019 at [facility] (Quantity not on file) Imp lants Hip AND RECON / Washer For Lg Scr 13mm - [id number] Orthopedic Trauma Left: SYNTHE S TRAUMA 219 99 / Implanted: 09/07/2019 at [facility] (Quantity not on file) Imp lants Hip AND RECON / Catheter Angio Vegetable Harvest Machine Operator Ii 5fr 65cm [facility]idd [facility] Andres - [id number] Surgical N/A: N/A [facility] PERIPHERAL [id number] / Implanted: 12/27/2017 at [facility] (Quantity not on file) Imp lants; INTERVENTION / Expanders; VASCULAR AUGUSTUS Extenders; Surgical Wires Catheter Angio Vegetable Harvest Machine Operator Ii 5fr 0.038in 65cm Contra-L - [id number] Surgical N/A: N/A [facility] PERIPHERAL [id number] / Implanted: 12/27/2017 at [facility] (Quantity not on file) Imp lants; INTERVENTION / Expanders; VASCULAR AUGUSTUS Extenders; Surgical Wires Catheter Card [place] 14 4fr 150cm Guid Supp - [id number] Surgic al N/A: N/A [facility] PERIPHERAL [id number] / Implanted: 12/27/2017 at [facility] (Quantity not on file) Imp lants; INTERVENTION / Expanders; VASCULAR AUGUSTUS Extenders; Surgical Wires Catheter Molding Plasterer Otw 4fr 150cm 3x80mm Lpr Rodney Sl Right: BOSTON [id number] / Implanted: Qty: 1 on 12/27/2017 by Nemesio Mistry MD at [facility] SCIENTIFIC/GODWIN / PHERAL VASCULAR (MEDI-TECH) Catheter Molding Plasterer Otw 3.8fr 135cm 80x5mm Rodney Right: KATIA Rivera [id number] / Implanted: Qty: 1 on 12/27/2017 by Nemesio Mistry MD at [facility] SCIENTIFIC/GODWIN / PHERAL VASCULAR (MEDI-TECH) Catheter Molding Plasterer Rodney Otw 135cm 4x60mm BOSTON [id number] / Implanted: Qty: 1 on 03/07/2018 by Nemesio Mistry MD at [facility] SCIENTIFIC/GODWIN / PHERAL VASCULAR (MEDI-TECH) Catheter Molding Plasterer Otw 4fr 150cm 3x80mm Lpr Rodney Sl BOSTON [id number] / Implanted: Qty: 1 on 03/07/2018 by Nemesio Mistry MD at [facility] SCIENTIFIC/GODWIN / PHERAL VASCULAR (MEDI-TECH) Catheter Molding Plasterer Otw 4fr 150cm 3x80mm Lpr Rodney Sl HOLDEN [id number] / Implanted: Qty: 1 on 03/21/2018 by Nemesio Mistry MD at [facility] SCIENTIFIC/GODWIN / PHERAL VASCULAR (MEDI-TECH) Catheter Molding Plasterer Rodney Otw 3.8fr 135cm 80x4mm BOSTO Nicole [id number] / Implanted: Qty: 1 on 03/21/2018 by Nemesio Mistry MD at [facility] SCIENTIFIC/GODWIN / PHERAL VASCULAR (MEDI-TECH) Explanted Type Area Dietitian Teacher Device Shelf Model / Identifier Expiration Serial / Date Lot Screw Bone Canltd Thred Lg Hxgnl Socket Ss [id number] - Log [id number] Orthopedic Left: SYNTHES TRAUMA 208 870 / Implanted: 09/07/2019 (Quantity not on file) Trauma Hip AND R ECON / Explanted: 09/07/2019 at [facility] (Quantity not on file) Implants Screw Bone Canltd Thred Lg Hxgnl Socket Ss [id number] - Log [id number] Orthopedic Left: SYNTHES TRAUMA 209 870 / Implanted: 09/07/2019 (Quantity not on file) Trauma Hip AND R ECON / Explanted: 09/07/2019 at [facility] (Quantity not on file) Implants Washer For Lg Scr 13mm - [id number] Orthopedic Left: SYNTHES TRAUM A 219 99 / Implanted: 09/07/2019 (Quantity not on file) Trauma Hip AND R ECON / Explanted: 09/07/2019 at [facility] (Quantity not on file) Implants Procedures [...] procedure are i n the results section. ME AN ELECTIVE Routine 09/07/2019 8:41 Results f [...] Routine 08/21/2019 12:25 PM Results for this STRINGING MACHINE TENDER procedure are i n the results section. POC GLUCOSE Routine 08/21/2019 8:21 AM Results for this STRINGING MACHINE TENDER procedure are i n the results section. MANUAL DIFFERENTIAL Routine 08/21/2019 2:00 AM R esults for this STRINGING MACHINE TENDER procedure are i n the results section. PHOSPHORUS LEVEL Routine 08/21/2019 2:00 AM Resu lts for this STRINGING MACHINE TENDER procedure are i n the results section. ESTIMATED GFR Routine 08/21/2019 2:00 AM Results for this STRINGING MACHINE TENDER procedure are i n the results section. MAGNESIUM LEVEL Routine 08/21/2019 2:00 AM Resul ts for this STRINGING MACHINE TENDER procedure are i n the results section. CBC WITH PLATELET AND Routine 08/21/2019 2:00 AM Results for this DIFFERENTIAL STRINGING MACHINE TENDER procedure are i n the results section. BASIC METABOLIC PANEL Routine 08/21/2019 2:00 AM Results for this STRINGING MACHINE TENDER procedure are i n the results section. HEMODIALYSIS Routine 08/20/2019 10:22 PM STRINGING MACHINE TENDER POC GLUCOSE Routine 08/20/2019 9:18 PM Results for this STRINGING MACHINE TENDER procedure are i n the results section. POC GLUCOSE Routine 08/20/2019 6:23 PM Results for this STRINGING MACHINE TENDER procedure are i n the results section. POC GLUCOSE Routine 08/20/2019 5:13 PM Results for this STRINGING MACHINE TENDER procedure are i n the results section. POC GLUCOSE Routine 08/20/2019 11:08 AM Results for this STRINGING MACHINE TENDER procedure are i n the results section. POC GLUCOSE Routine 08/20/2019 7:58 AM Results for this STRINGING MACHINE TENDER procedure are i n the results section. MANUAL DIFFERENTIAL Routine 08/20/2019 5:05 AM R esults for this STRINGING MACHINE TENDER procedure are i n the results section. ESTIMATED GFR Routine 08/20/2019 5:05 AM Results for this STRINGING MACHINE TENDER procedure are i n the results section. MAGNESIUM LEVEL Routine 08/20/2019 5:05 AM Resul ts for this STRINGING MACHINE TENDER procedure are i n the results section. CBC WITH PLATELET AND Routine 08/20/2019 5:05 AM Results for this DIFFERENTIAL STRINGING MACHINE TENDER procedure are i n the results section. BASIC METABOLIC PANEL Routine 08/20/2019 5:05 AM Results for this STRINGING MACHINE TENDER procedure are i n the results section. POC GLUCOSE Routine 08/19/2019 9:15 PM Results for this STRINGING MACHINE TENDER procedure are i n the results section. POC GLUCOSE Routine 08/19/2019 5:14 PM Results for this STRINGING MACHINE TENDER procedure are i n the results section. POC GLUCOSE Routine 08/19/2019 11:55 AM Results for this STRINGING MACHINE TENDER procedure are i n the results section. ECG 12-LEAD Routine 08/19/2019 9:26 AM Results for this STRINGING MACHINE TENDER procedure are i n the results section. POC GLUCOSE Routine 08/19/2019 8:53 AM Results for this STRINGING MACHINE TENDER procedure are i n the results section. BASIC METABOLIC PANEL Routine 08/19/2019 4:00 AM Results for this STRINGING MACHINE TENDER procedure are i n the results section. ESTIMATED GFR Routine 08/19/2019 4:00 AM Results for this STRINGING MACHINE TENDER procedure are i n the results section. POC GLUCOSE Routine 08/18/2019 5:56 PM Results for this STRINGING MACHINE TENDER procedure are i n the results section. POC GLUCOSE Routine 08/18/2019 1:01 PM Results for this STRINGING MACHINE TENDER procedure are i n the results section. HEMODIALYSIS Routine 08/18/2019 8:45 AM STRINGING MACHINE TENDER POC GLUCOSE Routine 08/18/2019 7:36 AM Results for this STRINGING MACHINE TENDER procedure are i n the results section. POC GLUCOSE Routine 08/17/2019 9:00 PM Results for this STRINGING MACHINE TENDER procedure are i n the results section. POC GLUCOSE Routine 08/17/2019 6:13 PM Results for this STRINGING MACHINE TENDER procedure are i n the results section. POC GLUCOSE Routine 08/17/2019 12:44 PM Results for this STRINGING MACHINE TENDER procedure are i n the results section. NM MYOCARDIAL PERFUSION Routine 08/17/2019 8:37 AM Results for this STRESS REST 1 DAY STRINGING MACHINE TENDER procedure are in the results section. CV STRESS TEST NUCLEAR Routine 08/17/2019 8:37 AM Results for this CARDIO STRINGING MACHINE TENDER procedure are i n the results section. POC GLUCOSE Routine 08/17/2019 7:53 AM Results for this [employer]INGING MACHINE [employer]ENDER procedure are i n the results section. ESTIMATED GFR Routine 08/17/2019 3:40 AM Results for this [employer]INGING MACHINE TENDER procedure are i n the results section. PHOSPHORUS LEVEL Routine 08/17/2019 3:40 AM Resu lts for this STRINGING MACHINE TENDER procedure are i n the results section. BASIC METABOLIC PANEL Routine 08/17/2019 3:40 AM Results for this [employer]INGING MACHINE TENDER procedure are i n the results section. POC GLUCOSE Routine 08/16/2019 9:56 PM Results for this STRINGING MACHINE TENDER procedure are i n the results section. POC GLUCOSE Routine 08/16/2019 4:07 PM Results for this STRINGING MACHINE TENDER procedure are i n the results section. POC GLUCOSE Routine 08/16/2019 11:38 AM Results for this [employer]INGING MACHINE TENDER procedure are i n the results section. CT HEAD WO CONTRAST Routine 08/16/2019 11:21 AM R esults for this STRINGING MACHINE TENDER procedure are i n the results section. ESTIMATED GFR Routine 08/16/2019 10:29 AM Results for this STRINGING MACHINE TENDER procedure are i n the results section. BASIC METABOLIC PANEL Routine 08/16/2019 10:29 AM Results for this STRINGING MACHINE TENDER procedure are i n the results section. POC GLUCOSE Routine 08/16/2019 7:41 AM Results for this STRINGING MACHINE TENDER procedure are i n the results section. POC GLUCOSE Routine 08/15/2019 6:03 PM Results for this STRINGING MACHINE TENDER procedure are i n the results section. POC GLUCOSE Routine 08/15/2019 12:07 PM Results for this STRINGING MACHINE TENDER procedure are i n the results section. HEMODIALYSIS Routine 08/15/2019 12:04 PM STRINGING MACHINE TENDER POC GLUCOSE Routine 08/15/2019 8:29 AM Results for this STRINGING MACHINE TENDER procedure are i n the results section. ESTIMATED GFR Routine 08/15/2019 8:15 AM Results for this STRINGING MACHINE TENDER procedure are i n the results section. PHOSPHORUS LEVEL Routine 08/15/2019 8:15 AM Resu lts for this STRINGING MACHINE TENDER procedure are i n the results section. MAGNESIUM LEVEL Routine 08/15/2019 8:15 AM Resul ts for this STRINGING MACHINE TENDER procedure are i n the results section. BASIC METABOLIC PANEL Routine 08/15/2019 8:15 AM Results for this STRINGING MACHINE TENDER procedure are i n the results section. HC COMPLETE BLD COUNT Routine 08/15/2019 8:15 AM Results for this W/AUTO DIFF STRINGING MACHINE TENDER procedure are i n the results section. POC GLUCOSE Routine 08/14/2019 9:45 PM Results for this STRINGING MACHINE TENDER procedure are i n the results section. POC GLUCOSE Routine 08/14/2019 4:20 PM Results for this STRINGING MACHINE TENDER procedure are i n the results section. POC GLUCOSE Routine 08/14/2019 11:11 AM Results for this STRINGING MACHINE TENDER procedure are i n the results section. HEPATITIS B CORE Routine 08/14/2019 10:05 AM Resu lts for this ANTIBODY TOTAL [employer]INGING MACHINE [employer]ENDER procedure are in the results section. HEPATITIS B SURFACE Routine 08/14/2019 10:05 AM R esults for this ANTIBODY STRINGING MACHINE [employer]ENDER procedure are i n the results section. HEPATITIS B SURFACE Routine 08/14/2019 10:05 AM R esults for this ANTIGEN [employer]INGING MACHINE TENDER procedure are i n the results section. HEPATITIS C ANTIBODY Routine 08/14/2019 10:05 AM Results for this STRINGING MACHINE TENDER procedure are i n the results section. HEMODIALYSIS Routine 08/14/2019 9:00 AM STRINGING MACHINE TENDER POC GLUCOSE Routine 08/14/2019 7:36 AM Results for this STRINGING MACHINE TENDER procedure are i n the results section. HC COMPLETE BLD COUNT Routine 08/14/2019 5:30 AM Results for this W/AUTO DIFF STRINGING MACHINE TENDER procedure are i n the results section. ESTIMATED GFR Routine 08/14/2019 4:00 AM Results for this STRINGING MACHINE TENDER procedure are i n the results section. BASIC METABOLIC PANEL Routine 08/14/2019 4:00 AM Results for this STRINGING MACHINE TENDER procedure are i n the results section. POC GLUCOSE Routine 08/13/2019 8:06 PM Results for this STRINGING MACHINE TENDER procedure are i n the results section. IR TUNNELED DIALYSIS Routine 08/13/2019 6:37 PM Results for this CATHETER PLACEMENT STRINGING MACHINE TENDER procedure are in the results section. HEPATITIS B SURFACE STAT 08/13/2019 5:28 PM R esults for this ANTIGEN STRINGING MACHINE TENDER procedure are i n the results section. POC GLUCOSE Routine 08/13/2019 5:15 PM Results for this STRINGING MACHINE TENDER procedure are i n the results section. POC GLUCOSE Routine 08/13/2019 11:54 AM Results for this STRINGING MACHINE TENDER procedure are i n the results section. HEMODIALYSIS Routine 08/13/2019 11:03 AM STRINGING MACHINE TENDER POC GLUCOSE Routine 08/13/2019 7:28 AM Results for this STRINGING MACHINE TENDER procedure are i n the results section. HC COMPLETE BLD COUNT Routine 08/13/2019 4:50 AM Results for this W/AUTO DIFF [employer]INGING MACHINE TENDER procedure are i n the results section. ESTIMATED GFR Routine 08/13/2019 4:00 AM Results for this STRINGING MACHINE TENDER procedure are i n the results section. BASIC METABOLIC PANEL Routine 08/13/2019 4:00 AM Results for this STRINGING MACHINE TENDER procedure are i n the results section. IONIZED CALCIUM Routine 08/13/2019 4:00 AM Resul ts for this STRINGING MACHINE TENDER procedure are i n the results section. POC GLUCOSE Routine 08/12/2019 8:33 PM Results for this STRINGING MACHINE TENDER procedure are i n the results section. POTASSIUM LEVEL Routine 08/12/2019 7:00 PM Resul ts for this STRINGING MACHINE TENDER procedure are i n the results section. POC GLUCOSE Routine 08/12/2019 6:25 PM Results for this STRINGING MACHINE TENDER procedure are i n the results section. POC GLUCOSE Routine 08/12/2019 4:18 PM Results for this STRINGING MACHINE TENDER procedure are i n the results section. POC GLUCOSE Routine 08/12/2019 11:43 AM Results for this STRINGING MACHINE TENDER procedure are i n the results section. XR CHEST 1 VW PORTABLE Routine 08/12/2019 9:16 AM Results for this STRINGING MACHINE TENDER procedure are i n the results section. POC GLUCOSE Routine 08/12/2019 6:59 AM Results for this STRINGING MACHINE TENDER procedure are i n the results section. MANUAL DIFFERENTIAL Routine 08/12/2019 5:00 AM R esults for this STRINGING MACHINE TENDER procedure are i n the results section. ESTIMATED GFR Routine 08/12/2019 5:00 AM Results for this STRINGING MACHINE TENDER procedure are i n the results section. B NATRIURETIC PEPTIDE Routine 08/12/2019 5:00 AM Results for this STRINGING MACHINE TENDER procedure are i n the results section. IONIZED CALCIUM Routine 08/12/2019 5:00 AM Resul ts for this STRINGING MACHINE TENDER procedure are i n the results section. PHOSPHORUS LEVEL Routine 08/12/2019 5:00 AM Resu lts for this STRINGING MACHINE TENDER procedure are i n the results section. MAGNESIUM LEVEL Routine 08/12/2019 5:00 AM Resul ts for this STRINGING MACHINE TENDER procedure are i n the results section. BASIC METABOLIC PANEL Routine 08/12/2019 5:00 AM Results for this STRINGING MACHINE TENDER procedure are i n the results section. CBC WITH PLATELET AND Routine 08/12/2019 5:00 AM Results for this DIFFERENTIAL STRINGING MACHINE TENDER procedure are i n the results section. POC GLUCOSE Routine 08/11/2019 8:34 PM Results for this STRINGING MACHINE TENDER procedure are i n the results section. POC GLUCOSE Routine 08/11/2019 6:06 PM Results for this STRINGING MACHINE TENDER procedure are i n the results section. HEMOGLOBIN & HEMATOCRIT Timed 08/11/2019 4:55 PM Results for this STRINGING MACHINE TENDER procedure are i n the results section. TRANSFUSE RED BLOOD STAT 08/11/2019 1:35 PM CELLS STRINGING MACHINE TENDER POC GLUCOSE Routine 08/11/2019 12:24 PM Results for this STRINGING MACHINE TENDER procedure are i n the results section. TRANSFUSE RED BLOOD STAT 08/11/2019 11:13 AM CELLS STRINGING MACHINE TENDER OCCULT BLOOD, STOOL Routine 08/11/2019 8:17 AM R esults for this STRINGING MACHINE TENDER procedure are i n the results section. POC GLUCOSE Routine 08/11/2019 8:02 AM Results for this STRINGING MACHINE TENDER procedure are i n the results section. HEMOGLOBIN & HEMATOCRIT STAT 08/11/2019 7:28 AM Results for this STRINGING MACHINE TENDER procedure are i n the results section. PREPARE RBC STAT 08/11/2019 6:24 AM Results for this STRINGING MACHINE TENDER procedure are i n the results section. TYPE AND SCREEN STAT 08/11/2019 6:24 AM Resul ts for this STRINGING MACHINE TENDER procedure are i n the results section. POC GLUCOSE Routine 08/11/2019 6:04 AM Results for this STRINGING MACHINE TENDER procedure are i n the results section. POC GLUCOSE Routine 08/11/2019 4:57 AM Results for this STRINGING MACHINE TENDER procedure are i n the results section. SMEAR REVIEW Routine 08/11/2019 4:35 AM Results for this STRINGING MACHINE TENDER procedure are i n the results section. HC COMPLETE BLD COUNT Routine 08/11/2019 4:35 AM Results for this W/AUTO DIFF STRINGING MACHINE TENDER procedure are i n the results section. ESTIMATED GFR Routine 08/11/2019 4:11 AM Results for this STRINGING MACHINE TENDER procedure are i n the results section. BASIC METABOLIC PANEL Routine 08/11/2019 4:11 AM Results for this STRINGING MACHINE TENDER procedure are i n the results section. POC GLUCOSE Routine 08/11/2019 12:25 AM Results for this STRINGING MACHINE TENDER procedure are i n the results section. POC GLUCOSE Routine 08/10/2019 8:52 PM Results for this STRINGING MACHINE TENDER procedure are i n the results section. POC GLUCOSE Routine 08/10/2019 4:59 PM Results for this STRINGING MACHINE TENDER procedure are i n the results section. POC GLUCOSE Routine 08/10/2019 12:19 PM Results for this STRINGING MACHINE TENDER procedure are i n the results section. POC GLUCOSE Routine 08/10/2019 11:00 AM Results for this STRINGING MACHINE TENDER procedure are i n the results section. POC GLUCOSE Routine 08/10/2019 8:31 AM Results for this STRINGING MACHINE TENDER procedure are i n the results section. POC GLUCOSE Routine 08/10/2019 7:21 AM Results for this STRINGING MACHINE TENDER procedure are i n the results section. ESTIMATED GFR Routine 08/10/2019 5:23 AM Results for this STRINGING MACHINE TENDER procedure are i n the results section. BASIC METABOLIC PANEL Routine 08/10/2019 5:23 AM Results for this STRINGING MACHINE TENDER procedure are i n the results section. HC COMPLETE BLD COUNT Routine 08/10/2019 5:23 AM Results for this W/AUTO DIFF STRINGING MACHINE TENDER procedure are i n the results section. POC GLUCOSE Routine 08/10/2019 4:01 AM Results for this STRINGING MACHINE TENDER procedure are i n the results section. POC GLUCOSE Routine 08/10/2019 12:27 AM Results for this STRINGING MACHINE TENDER procedure are i n the results section. POC GLUCOSE Routine 08/09/2019 9:24 PM Results for this STRINGING MACHINE TENDER procedure are i n the results section. US RENAL DOPPLER Routine 08/09/2019 9:00 PM Resu lts for this STRINGING MACHINE TENDER procedure are i n the results section. POC GLUCOSE Routine 08/09/2019 4:35 PM Results for this STRINGING MACHINE TENDER procedure are i n the results section. POC GLUCOSE Routine 08/09/2019 12:39 PM Results for this STRINGING MACHINE TENDER procedure are i n the results section. BODY FLUID CONSULT Routine 08/09/2019 11:49 AM Re sults for this STRINGING MACHINE TENDER procedure are i n the results section. URINALYSIS, AUTOMATED Routine 08/09/2019 11:49 AM Results for this WITH MICROSCOPY STRINGING MACHINE TENDER procedure ar e in the results section. TORITO TITER Routine 08/09/2019 11:45 AM Results for this STRINGING MACHINE TENDER procedure are i n the results section. GLOMERULAR BASEMENT Routine 08/09/2019 11:45 AM R esults for this MEMBRANE AB IGG (IFA) STRINGING MACHINE TENDER proced ure are in the results section. ANTI-NEUTROPHILIC Routine 08/09/2019 11:45 AM Res ults for this CYTOPLASMIC ABS PANEL STRINGING MACHINE TENDER proced ure are in the results section. TORITO Routine 08/09/2019 11:45 AM Results for this STRINGING MACHINE TENDER procedure are i n the results section. BARNETT ANTIBODY Routine 08/09/2019 11:45 AM Result s for this STRINGING MACHINE TENDER procedure are i n the results section. DOUBLE-STRANDED DNA Routine 08/09/2019 11:45 AM R esults for this (DSDNA) ANTIBODIES, STRINGING MACHINE TENDER procedur e are in [place] the results section. C4 COMPLEMENT COMPONENT Routine 08/09/2019 11:45 AM Results for this STRINGING MACHINE TENDER procedure are i n the results section. C3 COMPLEMENT COMPONENT Routine 08/09/2019 11:45 AM Results for this STRINGING MACHINE TENDER procedure are i n the results section. XR CHEST 1 VW PORTABLE Routine 08/09/2019 9:58 AM Results for this STRINGING MACHINE TENDER procedure are i n the results section. POC GLUCOSE Routine 08/09/2019 8:09 AM Results for this STRINGING MACHINE TENDER procedure are i n the results section. B NATRIURETIC PEPTIDE Routine 08/09/2019 5:20 AM Results for this STRINGING MACHINE TENDER procedure are i n the results section. VENOUS BLOOD GAS Routine 08/09/2019 5:20 AM Resu lts for this STRINGING MACHINE TENDER procedure are i n the results section. D-DIMER Routine 08/09/2019 5:20 AM Results for this STRINGING MACHINE TENDER procedure are i n the results section. HC COMPLETE BLD COUNT Routine 08/09/2019 5:20 AM Results for this W/AUTO DIFF STRINGING MACHINE TENDER procedure are i n the results section. POC GLUCOSE Routine 08/09/2019 4:54 AM Results for this STRINGING MACHINE TENDER procedure are i n the results section. ESTIMATED GFR Routine 08/09/2019 4:00 AM Results for this STRINGING MACHINE TENDER procedure are i n the results section. CREATINE KINASE, TOTAL Routine 08/09/2019 4:00 AM Results for this (CPK) STRINGING MACHINE TENDER procedure are i n the results section. TOTAL IRON BINDING Routine 08/09/2019 4:00 AM Re sults for this CAPACITY STRINGING MACHINE TENDER procedure are i n the results section. FERRITIN LEVEL Routine 08/09/2019 4:00 AM Result s for this STRINGING MACHINE TENDER procedure are i n the results section. BASIC METABOLIC PANEL Routine 08/09/2019 4:00 AM Results for this STRINGING MACHINE TENDER procedure are i n the results section. POC GLUCOSE Routine 08/09/2019 2:22 AM Results for this STRINGING MACHINE TENDER procedure are i n the results section. SERUM ELECTROPHORESIS Routine 08/09/2019 12:17 AM Results for this STRINGING MACHINE TENDER procedure are i n the results section. KAPPA LAMBDA FREE LIGHT Routine 08/09/2019 12:17 AM Results for this CHAIN WITH RATIO STRINGING MACHINE TENDER procedure a re in the results section. LACTIC ACID LEVEL Timed 08/09/2019 12:17 AM Res ults for this STRINGING MACHINE TENDER procedure are i n the results section. US CAROTID DUPLEX Routine 08/08/2019 9:20 PM Res ults for this BILATERAL STRINGING MACHINE TENDER procedure are i n the results section. POC GLUCOSE Routine 08/08/2019 9:13 PM Results for this STRINGING MACHINE TENDER procedure are i n the results section. POC GLUCOSE Routine 08/08/2019 6:26 PM Results for this STRINGING MACHINE TENDER procedure are i n the results section. URINE CULTURE Routine 08/08/2019 4:57 PM Results for this STRINGING MACHINE TENDER procedure are i n the results section. US RENAL Routine 08/08/2019 3:35 PM Results for this STRINGING MACHINE TENDER procedure are i n the results section. PROTEIN, URINE, RANDOM Routine 08/08/2019 1:43 PM Results for this STRINGING MACHINE TENDER procedure are i n the results section. CREATININE LEVEL, URINE, Routine 08/08/2019 1:43 PM Results for this RANDOM STRINGING MACHINE TENDER procedure are i n the results section. SODIUM LEVEL, URINE, Routine 08/08/2019 1:43 PM Results for this RANDOM STRINGING MACHINE TENDER procedure are i n the results section. UREA NITROGEN, URINE, Routine 08/08/2019 1:43 PM Results for this RANDOM STRINGING MACHINE TENDER procedure are i n the results section. URINALYSIS SCREEN AND Routine 08/08/2019 1:43 PM Results for this MICROSCOPY, WITH REFLEX STRINGING MACHINE TENDER proc edure are in TO CULTURE the results section. POC GLUCOSE Routine 08/08/2019 12:32 PM Results for this STRINGING MACHINE TENDER procedure are i n the results section. POC GLUCOSE Routine 08/08/2019 7:33 AM Results for this STRINGING MACHINE TENDER procedure are i n the results section. POC GLUCOSE Routine 08/08/2019 5:58 AM Results for this STRINGING MACHINE TENDER procedure are i n the results section. POC GLUCOSE Routine 08/08/2019 4:18 AM Results for this STRINGING MACHINE TENDER procedure are i n the results section. TROPONIN Routine 08/08/2019 4:04 AM Results for this STRINGING MACHINE TENDER procedure are i n the results section. ESTIMATED GFR STAT 08/08/2019 2:24 AM Results for this STRINGING MACHINE TENDER procedure are i n the results section. COMPREHENSIVE METABOLIC STAT 08/08/2019 2:24 AM Results for this PANEL STRINGING MACHINE TENDER procedure are i n the results section. ESTIMATED GFR Routine 08/08/2019 1:40 AM Results for this STRINGING MACHINE TENDER procedure are i n the results section. LIPID PANEL Routine 08/08/2019 1:40 AM Results for this STRINGING MACHINE TENDER procedure are i n the results section. T4, FREE Routine 08/08/2019 1:40 AM Results for this STRINGING MACHINE TENDER procedure are i n the results section. THYROID STIMULATING Routine 08/08/2019 1:40 AM R esults for this HORMONE STRINGING MACHINE TENDER procedure are i n the results section. HEMOGLOBIN A1C Routine 08/08/2019 1:40 AM Result s for this STRINGING MACHINE TENDER procedure are i n the results section. BASIC METABOLIC PANEL Routine 08/08/2019 1:40 AM Results for this STRINGING MACHINE TENDER procedure are i n the results section. HC COMPLETE BLD COUNT Routine 08/08/2019 1:40 AM Results for this W/AUTO DIFF STRINGING MACHINE TENDER procedure are i n the results section. TROPONIN Routine 08/08/2019 12:09 AM Results for this STRINGING MACHINE TENDER procedure are i n the results section. XR CHEST 1 VW PORTABLE STAT 08/07/2019 9:08 PM Results for this STRINGING MACHINE TENDER procedure are i n the results section. ECG 12-LEAD Routine 08/07/2019 8:50 PM Results for this STRINGING MACHINE TENDER procedure are i n the results section. ESTIMATED GFR Routine 08/07/2019 8:45 PM Results for this STRINGING MACHINE TENDER procedure are i n the results section. HC COMPLETE BLD COUNT Routine 08/07/2019 8:45 PM Results for this W/AUTO DIFF STRINGING MACHINE TENDER procedure are i n the results section. COMPREHENSIVE METABOLIC Routine 08/07/2019 8:45 PM Results for this PANEL STRINGING MACHINE TENDER procedure are i n the results section. TROPONIN Routine 08/07/2019 8:45 PM Results for this STRINGING MACHINE TENDER procedure are i n the results section. B NATRIURETIC PEPTIDE Routine 08/07/2019 8:45 PM Results for this STRINGING MACHINE TENDER procedure are i n the results section. ME CRITICAL CARE, E/M Routine 08/07/2019 8:33 PM Results for this 30-74 MINUTES STRINGING MACHINE TENDER procedure are in the results section. ESTIMATED GFR STAT 08/07/2019 6:42 PM Results for this STRINGING MACHINE TENDER procedure are i n the results section. LIPASE LEVEL STAT 08/07/2019 6:42 PM Results for this STRINGING MACHINE TENDER procedure are i n the results section. AMYLASE LEVEL STAT 08/07/2019 6:42 PM Results for this STRINGING MACHINE TENDER procedure are i n the results section. COMPREHENSIVE METABOLIC STAT 08/07/2019 6:42 PM Results for this PANEL STRINGING MACHINE TENDER procedure are i n the results section. PARTIAL THROMBOPLASTIN STAT 08/07/2019 6:42 PM Results for this TIME (PTT) STRINGING MACHINE TENDER procedure are i n the results section. PROTHROMBIN TIME WITH STAT 08/07/2019 6:42 PM Results for this INR STRINGING MACHINE TENDER procedure are i n the results section. HC COMPLETE BLD COUNT STAT 08/07/2019 6:42 PM Results for this W/AUTO DIFF STRINGING MACHINE TENDER procedure are i n the results section. TTE COMPLETE, WO Routine 08/07/2019 12:45 AM Resu lts for this CONTRAST, W DOPPLER STRINGING MACHINE TENDER procedur e are in ([id number]) the results section. PV PHYSIOLOGIC ARTERIAL Routine 04/11/2019 10:30 AM PAD (perip heral Results for this LOWER EXTREMITY COMPLETE CDT artery disease) procedure are in (HCC) the results section. after 04/03/2019 Results XR Lower Extremity External Study (09/21/2019 2:37 PM CDT) Specimen Narrative Performed At This exam was not acquired at a [facility] facility and has not been [facility] interpreted by a [facility] Provider. T he exam was imported into our imaging system. Performing Organization Address City/[facility]/ZIP Code Phon e Number [employer] [address] [place] [id number] POC glucose (09/12/2019 12:02 PM CDT)Only the most recent of94 resultswithin the time period is included. Pathologist Sig nature POC glucose 104 (H) 65 - 99 mg/dL [facility] Comment: HOSPITAL Circuit Walker Name: [facility] Device ID: [id number] Chartable: [facility] Notified RN Specimen Blood Performing Organization Address City/[facility]/ZIP Code Phon e Number [facility] DEPARTMENT OF PATHOLOGY AND [address] [place] [address] [address] Hepatitis B surface antigen (09/11/2019 10:57 AM CDT)Only the most recent of3 resultswithin the time period is included. Pathologist Sig [facility] Hepatitis B surface Non-reactive Non-reactive [facility] Specimen Blood Performing Organization Address City/[facility] Phon e Number [facility] DEPARTMENT OF PATHOLOGY AND [address] [place] [address] [address] CBC with platelet and differential (09/11/2019 8:15 AM CDT)Only the most recent of16 resultswithin the time period is included. WBC 5.56 4.50 - 11.00 [facility] RBC 3.30 (L) 4.20 - 5.50 [facility] HGB 8.8 (L) 12.0 - 16.[address] [facility] HCT 28.2 (L) 37.0 - 47.0 % [facility] MCV 85.5 82.0 - 100.0 [facility] MCH 26.7 (L) 27.0 - 34.0 pg [facility] MCHC 31.2 31.0 - 37.[address] [facility] RDW - SD 46.1 37.0 - 55.0 [facility] MPV 9.7 8.8 - 13.2 fL [facility] Platelet count 340 150 - 400 k/uL [facility] Nucleated RBC 0.00 /100 WBC [facility] Neutrophils 62.7 39.0 - 69.0 % [facility] Lymphocytes 26.6 25.0 - 45.0 % [facility] Monocytes 6.8 0.0 - 10.0 % [facility] Eosinophils 2.5 0.0 - 5.0 % [facility] Basophils 0.9 0.0 - 1.0 % [facility] Immature granulocytes 0.5Comment: 0.0 - 1.0 % [facility] "Immature HOSPITAL granulocytes" (promyelocytes , myelocytes, metamyelocytes ) Specimen Blood Performing Organization Address City/[facility] Phon e Number [facility] DEPARTMENT OF PATHOLOGY AND [address] [place] [address] [address] Estimated GFR (09/11/2019 12:00 AM CDT)Only the most recent of21 resultswithin the time period is included. Estimated GFR 8 (A) mL/min/1.73 [facility] Comment: m2 HOSPITAL Catergory Units Interpretation G1 [...] published in 2014. Specimen Performing Organization Address City/[facility] Phon e Number [facility] DEPARTMENT OF PATHOLOGY AND [address] [place] [address] [address] Basic metabolic panel (09/11/2019 12:00 AM CDT)Only the most recent of18 results within the time period is included. Pathologist Sig nature Sodium 133 (L) 135 - 148 mEq/L [facility] Potassium 3.7 3.5 - 5.0 mEq/L [facility] Chloride 95 (L) 98 - 112 mEq/L [facility] CO2 23 (L) 24 - 31 mEq/L [facility] Anion gap 15@ANIO 7 - 15 mEq/L [facility] BUN 35 (H) 8 - 23 mg/dL [facility] Creatinine 4.76 (H) 0.50 - 0.90 mg/dL [facility] Glucose 80 65 - 99 mg/dL [facility] Calcium 8.4 (L) 8.8 - 10.2 mg/dL [facility] Specimen Blood Performing Organization Address City/[facility] Phon e Number [facility] DEPARTMENT OF PATHOLOGY AND [address] [place] [address] [phone] [address] CBC hemogram (09/08/2019 7:30 AM CDT) Pathologist Sig nature WBC 8.65 4.50 - 11.00 k/uL [facility] RBC 3.17 (L) 4.20 - 5.50 m/uL [facility] HGB 8.3 (L) 12.0 - 16.0 g/dL [facility] HCT 27.5 (L) 37.0 - 47.0 % [facility] MCV 86.8 82.0 - 100.0 fL [facility] MCH 26.2 (L) 27.0 - 34.0 pg [facility] MCHC 30.2 (L) 31.0 - 37.0 g/dL [facility] RDW - SD 46.7 37.0 - 55.0 fL [facility] MPV 10.2 8.8 - 13.2 fL [facility] Platelet count 298 150 - 400 k/uL [facility] Nucleated RBC 0.00 /100 WBC [facility] Specimen Blood Performing Organization Address City/[facility] Phon e Number [facility] DEPARTMENT OF PATHOLOGY AND [address] [place] [address] [phone] [address] Phosphorus level (09/08/2019 4:00 AM CDT)Only the most recent of6 resultswithin the time period is included. Pathologist Sig nature Phosphorus 5.5 (H) 2.4 - 4.5 mg/dL [facility] L Specimen Blood Performing Organization Address City/[facility] Phon e Number [facility] DEPARTMENT OF PATHOLOGY AND [address] [place], [place] [address] [facility] [address] [place] [address] Magnesium level (09/08/2019 4:00 AM CDT)Only the most recent of6 resultswithin the time period is included. Pathologist Sig nature Magnesium 2.0 1.6 - 2.4 mg/dL [facility] L Specimen Blood Performing Organization Address City/[facility] Phon e Number [facility] DEPARTMENT OF PATHOLOGY AND [address] [place], [place] [address] [facility] [address] [place] [address] [place] > I Hour (09/07/2019 9:16 AM CDT) Specimen Narrative Performed At EXAMINATION: [place] > 1 HOUR [facility] C-arm fluoroscopy was requested in OR. Location: OPC19 - OR12 Procedure: LEFT HIP PINNING Start Time: 30 End Time: 15 Fluoro Time: 1MIN 27SEC Dose (mGy): 6.98mGy Tech(s): isma IMPRESSION: Separate operative report will be issued by the physic tristin performing the procedure. [id number] Procedure Note Hm Interface, Radiology Results Incoming - 09/07/2019 8:51 PM CDT EXAMINATION: [place] > 1 HOUR C-arm fluoroscopy was requested in OR. Location: OPC19 - OR12 Procedure: LEFT HIP PINNING Start Time: 729 End Time: 15 Fluoro Time: 1MIN 27SEC Dose (mGy): 6.98mGy Tech(s): isma IMPRESSION: Separate operative report will be issued by the physician performing the procedure. [id number] Performing Organization Address City/[facility] Phon e Number [facility] [address] [place] [address] Airway (09/07/2019 8:41 AM CDT) Narrative Performed At Matias Douglas Jr., CRNA 2019 8:42 AM Airway Date/Time: 09/07/2019 8:05 AM Performed by: Matias Douglas Jr., CR NA Authorized by: Jm Magana MD Location: [place] Urgency: Elective Difficult Airway: No Anesthesiologist: Jm Magana MD Resident/SECURITY SYSTEMS SALES REPRESENTATIVE/AA: Matias Douglas CRNA Performed by: resident/SECURITY SYSTEMS SALES REPRESENTATIVE/AA Preoxygenated with 100% O2: Yes C-spine Precautions [...] POC panel 4 (09/07/2019 6:48 AM CDT) POC sodium 131 (L) 135 - 148 [facility] mmol/L [facility] POC potassium 4.0 3.5 - 5.0 [facility] mmol/L [facility] POC hematocrit 30 (L) 37 - 47 % [facility] POC glucose 132 (H) 65 - 99 mg/dL [facility] Comment: HOSPITAL Circuit Walker Name: Lamont Contreras Device ID: [id number] Specimen Performing Organization Address [facility] Phon e Number [facility] DEPARTMENT OF PATHOLOGY AND [address] [place] [address] [address] Total iron binding capacity (09/07/2019 4:30 AM CDT)Only the most recent of2 resultswithin the time period is included. Pathologist Sig nature Iron level 31 (L) 37 - 145 ug/dL [facility] Iron binding capacity 166 (L) 200 - 400 ug/dL [facility] % Saturation 18.7 15.0 - 38.0 % [facility] Specimen Blood Performing Organization Address City/[facility] Phon e Number [facility] DEPARTMENT OF PATHOLOGY AND [address] [place] [address] [phone] [address] Partial thromboplastin time, activated (09/07/2019 4:30 AM CDT)Only the most recent of4 resultswithin the time period is included. PTT 36.4 (H) 23.0 - 36.0 [facility] Comment: [facility] PTT therapeutic range for unfractionated heparin is 61.0-112.0 seconds which corresponds to Anti-Xa 0.3-0.7 U/ml. Specimen Blood Performing Organization Address [facility] Phon e Number [facility] DEPARTMENT OF PATHOLOGY AND [address] [place] [address] [place] [address] Prothrombin time with INR (09/07/2019 4:30 AM CDT)Only the most recent of4 resultswithin the time period is included. Prothrombin time 14.6 (H) 11.5 - 14.5 [facility] INR 1.1 [place] Comment: EPISCOPALIAN [facility] International Normalized Ratio (INR) is a therapeu the medical center HOSPITAL monitoring tool for patients who are stable on oral anticoagulant therapy. An INR of 2.0-3.0 is suggested for deep vein thrombosis/pulmonary embolism. Specimen Blood Performing Organization Address [facility] Phon e Number [facility] DEPARTMENT OF PATHOLOGY AND [address] [place] [address] [place] [address] Ferritin level (09/07/2019 4:30 AM CDT)Only the most recent of2 resultswithin the time period is included. Pathologist Sig nature Ferritin level 928 (H) 13 - 150 ng/mL [facility] Specimen Blood Performing Organization Address City/[facility]/ZIP [facility] Phon e Number [facility] DEPARTMENT OF PATHOLOGY AND [address] [place] [address] [place] [address] Albumin level (09/06/2019 4:00 AM CDT) Pathologist Sig nature Albumin 2.5 (L) 3.5 - 5.0 g/dL [facility] Specimen Blood Performing Organization Address City/[facility] Phon e Number [facility] DEPARTMENT OF PATHOLOGY AND [address] [place] [address] [phone] [address] ECG 12 lead (09/05/2019 6:15 PM CDT)Only the most recent of3 resultswithin the time period is included. Pathologist Sig nature Ventricular rate 77 [facility] Atrial rate 77 [facility] ME interval 130 [facility] QRSD interval 90 [facility] QT interval 380 [facility] QTC interval 430 [facility] P axis 1 47 [facility] QRS axis 1 10 [facility] T wave axis 127 [facility] EKG impression Normal sinus rhythm-Minimal voltage criteria for LVH, may be normal variant ( Pete product )-ST & T wave abnormality, consider lateral ischemia-Abnormal ECG-In automated comparison with ECG of 19-AUG-2019 09:26,-No significant change was [facility] MUSE found- Specimen Narrative Performed At This result has an attachment that is no t available. Performing Organization Address [facility] Phon e Number [facility] MUSE [address] [place] [address] XR Hip 2-3 View Left (09/05/2019 2:13 [...] or dislocation. 3. Vascular consultations are present. [facility]-[id number] Procedure Note Interface, Radiology Results Incoming - 09/05/2019 2:19 [...] or dislocation. 3. Vascular consultations are present. [facility]-[id number] Performing Organization Address [facility] Phon e Number [facility] [address] [place] [address] XR Femur 2 Vw Left (09/05/2019 2:13 PM CDT) Specimen Narrative Performed At EXAMINATION: XR FEMUR 2 VW LEFT [facility] CLINICAL HISTORY: Fracture femur COMPARISON: None. FINDINGS: There is a subcapital femoral neck fracture, with slig ht impaction and valgus angulation noted. Moderate vascular calcifications are pre sent. IMPRESSION: Left-sided Subcapital femoral neck fract ure. [id number] Procedure Note Interface, Radiology Results Incoming - 09/05/2019 2:18 PM CDT EXAMINATION: XR FEMUR 2 VW LEFT CLINICAL HISTORY: Fracture femur COMPARISON: None. FINDINGS: There is a subcapital femoral neck fract ure, with slight impaction and valgus angulation noted. Moderate vascular calcifications are pre sent. IMPRESSION: Left-sided Subcapital femoral neck fract ure. [id number] Performing Organization Address City/State/ZIP Code Phon e Number [facility] [address] [place] [address] XR Pelvis 1 Or 2 Vw (09/05/2019 2:12 PM CDT) Specimen Narrative Performed At PROCEDURE: XR PELVIS 1 OR 2 VW HM [facility] CLINICAL HISTORY: hip pain COMPARISON: None. [...] within the left and right hip joints. [id number] . Procedure Note Interface, Radiology Results Incoming [...] within the left and right hip joints. [id number] . Performing Organization Address City/[facility]/ZIP Code Phon e Number [facility] [address] [place] [address] Type and screen (09/05/2019 6:10 AM CDT)Only the most recent of2 resultswithin the time period is included. Pathologist Sig nature ABO grouping O [facility] Rh type POS [facility] Antibody screen (gel) NEG [facility] Specimen Blood Performing Organization Address City/[facility] Code Phon e Number [facility] DEPARTMENT OF PATHOLOGY AND [address] [place], [place] [address] GENOMIC MEDICINE [facility] [address] [place] [address] XR Chest 2 Vw (08/27/2019 4:54 PM CDT) Specimen Narrative Performed At EXAMINATION: XR CHEST 2 VW [facility] HISTORY: 79 years Female R05 Cough, Co [...] IMPRESSION: No acute intrathoracic abn ormality identified. [id number] Procedure Note Interface, Radiology Results Incoming - [...] IMPRESSION: No acute intrathoracic abno rmality identified. [facility]-[id number] Performing Organization Address City/[facility]/ZIP [facility] Phon e Number [facility] [address] [place] [address] URINALYSIS, COMPLETE, WITH REFLEX TO CULTURE (08/27/2019 4:10 PM CDT) Color, UA YELLOW YELLOW [facility] [place] Appearance CLOUDY (A) CLEAR [facility] [place] Specific gravity, 1.024 1.001 - 1.035 [facility] urine [place] pH, urine < OR = 5.0 5.0 - 8.0 [facility] [place] Glucose, urine 1+ (A) NEGATIVE [facility] [place] Bilirubin, UA NEGATIVE NEGATIVE [facility] [place] Ketones, UA NEGATIVE NEGATIVE [facility] [place] Occult blood, NEGATIVE NEGATIVE [facility] urine [place] Protein, UA 3+ (A) NEGATIVE [facility] [place] Nitrite, UA NEGATIVE NEGATIVE [facility] [place] Leukocyte TRACE (A) NEGATIVE [facility] esterase, UA [place] WBC, UA 20-40 (A) < OR = 5 /HPF [facility] [place] RBC, UA 0-2 < OR = 2 /HPF [facility] [place] Squamous 0-5 < OR = 5 /HPF [facility] epithelial cells, [place] UA Bacteria, UA NONE SEEN NONE SEEN /HPF [facility] [place] Hyaline casts, UA NONE SEEN NONE SEEN /LPF [facility] [place] Reflex CULTURE [facility] RESULTS TO FOLLOW Specimen Narrative Performed At FASTING:UNKNOWN [facility] FASTING: UNKNOWN Resulting Agency Comment Performing Organization Information: Site ID: [id number] Name: [facility] Address: [address] [place] [phone] Director: Ed Roldan Performing Organization Address [facility] Phon e Number [facility] [place] [address] Urine culture (08/27/2019 4:10 PM CDT)Only the most recent of2 resultswithin the time period is included. Urine culture SEE NOTE [facility] Comment: [place] CULTURE, URINE, ROUTINE Micro Number: [id number] Test Status: Final Specimen Source: URINE Specimen Quality: Adequate Result: Multiple organisms p resent, each less than 10,000 CFU/mL. These organisms , commonly found on external and internal genitalia, are considered to be col onizers. No further testing performed. Specimen Narrative Performed At FASTING:UNKNOWN [facility] FASTING: UNKNOWN Resulting Agency Comment Performing Organization Information: Site ID: RGA Name: [facility] Address: [address] [place] [address] Director: Ed Roldan Performing Organization Address City/[facility] Phon e Number [facility] [place] [address] [place] [phone] Manual differential (08/21/2019 2:00 AM STRINGING MACHINE TENDER)Only the most recent of3 results within the time period is included. Manual differential PERFORMED [facility] Neutrophils 80.0 (H) 39.0 - 69.0 % [facility] Lymphocytes 15.0 (L) 25.0 - 45.0 % [facility] Monocytes 2.0 0.0 - 10.0 % [facility] Eosinophils 3.0 0.0 - 5.0 % [facility] Basophils 0.0 0.0 - 1.0 % [facility] Metamyelocytes 0 % [facility] Promyelocytes 0 % [facility] Platelet slide review Yael adequate [facility] Anisocytosis Moderate [facility] Polychromasia Moderate [facility] Ovalocytes Moderate [facility] Specimen Performing Organization Address City/[facility] Phon e Number [facility] DEPARTMENT OF PATHOLOGY AND [address] [place] [phone] GENOMIC MEDICINE [address] [address] Cv stress test (08/17/2019 8:37 AM STRINGING MACHINE TENDER) Resting HR 77 H MUSE Resting BP 114 H MUSE Peak MET Achieved 1.0 [facility] MUSE Protocol Name REGADENO [facility] MUSE Time in Exercise 00:01:00 [facility] Phase Max Systolic BP 120 [facility] Max Diastolic BP 60 [facility] Max Heart Rate 90 [facility] M[facility] Max Predicted Heart 143 H MUSE Rate Target HR Formula (220 - Age)*100% [facility] MUSE Test Indication CHF EVALUATION FOR H MUSE ISCHEMIA Arrhy During Ex [facility] ECG Interp Before EX [facility] ECG Interp During Ex [facility] Ex Summary Comment [facility] MUSE Overall HR Response [facility] MUSE to Exercise Overall BP Response H MUSE To Exercise Reason for Protocol Complete H MUSE Termination Stress Test Waveform interpreted in [facility] MUSE Impression report associated with image study. No interpretation is provided as part of this Stress ECG report.--Electronically Signed By Bernie RIOS, Farheen ([id number]), multimedia editor Jacqueline Rice ([id number]) on 08/17/2019 7:58:38 PM Specimen Narrative Performed At This result has an attachment that is no t available. Performing Organization Address City/State/ZIP Code Phon e Number [facility] MUSE [address] [facility] [place] [place] [address] Nm myocardial perfusion (08/17/2019 8:37 AM STRINGING MACHINE TENDER) Specimen Narrative Performed At This result has an attachment that is no t available. [facility] Nuclear Cardiology and Card iac CT [address] [place] [address] Myocardial Perfusion Imagin g Report Stress ECG tracings are available in MUSE, EP IC and [employer] All ECG interpretations are included in this report Pat.Name: AURY MOULTON Pat.ID: [id number] St.Date: 08/17/2019 Refer.MD: DOROTA MURILLO MD Exam Time: 8:39:00 AM Study Type:Myocardial Perfusion Imaging Height: 58in BSA: 1.33 m2 Age: 7 1940,79Y Sex: FEMALE BP: 114/57 HR: 76 bpm Nuclear Tech:STEPHANIE Barrett CNMT Pat. Stat.:Inpatient Room: [facility] A Tape Vol: 19.86, Nuclear Event ID:[id number] Order ID: [id number] Reason for Study:CHF, Evaluate for Ischemia History [...] rate of 85 beats/minute. Signed 08/17/2019 11:46 AM Farheen Gibbs MD Procedure Note Interface, Radiology Results In - 2019 11:46 AM [facility] Nuclear Cardiology and Cardiac CT [address] [place] [id number] Myocardial Perfusion I maging Report Stress ECG tracings are available in [employer], [employer] and [employer] All ECG interpretations are in cluded in this report Pat.Name: AURY MOULTON Pat.I D: [id number] St.Date: 08/17/2019 Refer.MD: DOROTA MURILLO MD Exam Time: 8:39:00 AM Study Type:Myocardial Perfusion Imaging Height: 58in BSA: 1.33 m2 Age: 7 1940,79Y Sex: FEMALE BP: 114/57 HR: 76 bpm Nuclear Tech:STEPHANIE Barrett CNMT Pat. Stat.:Inpatient Room: [facility] A Tape Vol: 19.86, Nuclear Event ID:[id number] Order ID: [id number] Reason for Study:CHF, Evaluate for Ische misty [...] AM Farheen Gibbs MD Performing Organization Address City/State/ZIP Code Phon e Number [facility] [address] [place] [address] CT Head Wo Contrast (08/16/2019 11:21 AM STRINGING MACHINE TENDER) Specimen Narrative Performed At EXAMINATION: CT HEAD WO CONTRAST [facility] CLINICAL HISTORY: Altered level of con [...] No acute intracranial hemorrhage or mass effect. [id number] Procedure Note Interface, Radiology Results Incoming - 08/16/2019 11:29 AM STRINGING MACHINE TENDER EXAMINATION: CT HEAD WO CONTRAST CLINICAL HISTORY: [...] No acute intracranial hemorrhage or mass effect. [id number] Performing Organization Address City/State/ZIP Code Phon e Number [facility] [address] [place] [address] Hepatitis C antibody (08/14/2019 10:05 AM STRINGING MACHINE TENDER) Pathologist Sig nature Hepatitis C Ab Non-reactive Non-reactive [facility] Specimen Blood Performing Organization Address City/State/ZIP Code Phon e Number [facility] DEPARTMENT OF PATHOLOGY AND [address] [place] [address] 0 [place] [address] Hepatitis B core antibody total (08/14/2019 10:05 AM STRINGING MACHINE TENDER) Pathologist Sig nature Hepatitis B core Non-reactive Non-reactive [facility] Specimen Blood Performing Organization Address City/[facility] Phon e Number [facility] DEPARTMENT OF PATHOLOGY AND [address] [place] [address] 0 [place] [address] Hepatitis B surface antibody (08/14/2019 10:05 AM STRINGING MACHINE TENDER) Pathologist Sig nature Hepatitis B surface Non-reactive Non-reactive [facility] Specimen Blood Performing Organization Address [facility] Code Phon e Number [facility] DEPARTMENT OF PATHOLOGY AND [address] [place] [address] 0 [place] [address] IR Tunneled Dialysis Catheter Placement (08/13/2019 6:37 PM STRINGING MACHINE TENDER) Specimen Narrative Performed At PROCEDURE: [facility] Tunneled [...] and the performing provider. Duration of intraservice hudh-rk-isac an esthesia/sedation: 19 minutes Access: Local anesthesia [...] internal jugular ve in Access technique: 5 Tajik micropuncture set Venography: Vein catheterized: N/A Indication [...] archived. Catheter Brand/Type: Palindrome Catheter size: 14.5 Tajik Catheter length: 19 cm tip to cuff [...] Estimated blood loss: Less than 10 cc [facility]-[id number] Procedure Note [facility], Radiology Results Incoming - 08/14/2019 7:40 AM STRINGING MACHINE TENDER PROCEDURE: Tunneled hemodialysis catheter placement Performing Radiologist: [...] and the performing provider. Duration of intraservice lkaz-by-iewy an esthesia/sedation: 19 minutes Access: Local anesthesia [...] internal jugular ve in Access technique: 5 Tajik micropuncture set Venography: Vein catheterized: N/A Indication [...] archived. Catheter Brand/Type: Palindrome Catheter size: 14.5 Tajik Catheter length: 19 cm tip to cuff [...] Estimated blood loss: Less than 10 cc [facility]-[id number] Performing Organization Address City/[facility] Phon e Number [address] [address] Ionized calcium (08/13/2019 4:00 AM STRINGING MACHINE TENDER)Only the most recent of2 resultswithin the time period is included. Pathologist Sig nature pH 7.52 [facility] Ionized calcium 1.06 (L) 1.11 - 1.32 [facility] mmol/L [facility] Specimen Plasma specimen Performing Organization Address City/State/ZIP Code Phon e Number [facility] DEPARTMENT OF PATHOLOGY AND [address] [place] [phone] GENOMIC MEDICINE [address] [address] Potassium level (08/12/2019 7:00 PM STRINGING MACHINE TENDER) Pathologist Sig mansoor Potassium 4.2 3.5 - 5.0 mEq/L [facility] L Specimen Plasma specimen Performing Organization Address City/[facility]/ZIP Code Phon e Number [facility] DEPARTMENT OF PATHOLOGY AND [address] [place] [address] [phone] [address] XR Chest 1 Vw Portable (08/12/2019 9:16 AM STRINGING MACHINE TENDER)Only the most recent of3 results within the [...] stable. Visualized o sseous structures are stable. [id number] Procedure Note Hm Interface, Radiology Results Incoming - 08/12/2019 9:26 AM STRINGING MACHINE TENDER Study:XR CHEST 1 VW PORTABLE History: ICU pt stable with no clinical status changes COMPARISON: 08/09/2019 IMPRESSION: A single view of the chest. Small to mod erate bilateral pleural effusions. No pneumothorax. Likely atelectasis of the lower lobes. Cardiac silhouette is enlarged, stable. Visualized osseous structures are stable. [id number] Performing Organization Address City/[facility] Phon e Number [facility] [address] [place] [address] B natriuretic peptide (08/12/2019 5:00 AM STRINGING MACHINE TENDER)Only the most recent of3 results within the time period is included. Pathologist Sig mansoor BNP 2,296 (H) 0 - 100 pg/mL [facility] Specimen Blood Performing Organization Address City/[facility]/ZIP [facility] Phon e Number [facility] DEPARTMENT OF PATHOLOGY AND [address] [place] [address] [phone] [address] Hemoglobin & hematocrit (08/11/2019 4:55 PM STRINGING MACHINE TENDER)Only the most recent of2 resultswithin the time period is included. Pathologist Sig mansoor HGB 10.0 (L)Comment: 12.0 - 16.0 g/dL [facility] EPISCOPALIAN Results double HOSPITAL checked. HCT 30.2 (L) 37.0 - 47.0 % [facility] Specimen Blood Performing Organization Address City/[facility] Phon e Number [facility] DEPARTMENT OF PATHOLOGY AND [address] [place] [address] [phone] [address] Transfuse RBC (08/11/2019 1:35 PM STRINGING MACHINE TENDER)Only the most recent of2 resultswithin the time period is included.Occult blood, stool (08/11/2019 8:17 AM STRINGING MACHINE TENDER) Occult blood, Positive for Occult blood (A) [facility] Comment: [facility] Specimen Information Specimen Source: Stool Specimen Site: Nonpreserved Specimen Stool - Nonpreserved Performing Organization Address City/[facility] Phon e Number [facility] DEPARTMENT OF PATHOLOGY AND [address] [place] [address] [address] Prepare RBC, 2 Units (08/11/2019 6:24 AM STRINGING MACHINE TENDER) Product name Red Blood Cells [place] -1, Leukored [facility] Unit number [id number] [facility] Product code [id number] [facility] Dispense status Transfused [facility] Blood expiration date [facility] Blood type code 5100 [facility] Blood type O POSITIVE [facility] Compatibility Compatible [facility] Product name Apheresis Red Cell [facility] #2 LR [facility] Unit number [id number] [facility] Product code [id number] [facility] Dispense status Transfused [facility] Blood expiration date [facility] Blood type code 5100 [facility] Blood type O POSITIVE [facility] Compatibility Compatible [facility] Specimen Blood Performing Organization Address [facility] Phon e Number [facility] DEPARTMENT OF PATHOLOGY AND [address] [place] [address] [phone] [address] Smear review (08/11/2019 4:35 AM STRINGING MACHINE TENDER) Pathologist Sig nature Platelet slide review Yael adequate [facility] Anisocytosis Moderate [facility] Polychromasia Moderate [facility] Ovalocytes Moderate [facility] Specimen Performing Organization Address City/[facility]/ZIP Code Phon e Number [facility] DEPARTMENT OF PATHOLOGY AND [address] [place], [place] [address] GENOMIC MEDICINE [facility] [address] [place] [address] [place] Renal Doppler (08/09/2019 9:00 PM STRINGING MACHINE TENDER) Specimen Narrative Performed At EXAMINATION: [facility] CLINICAL [facility]: kristen COMPARISON: None. TECHNIQUE: [...] related to underlyin g medical/parenchymal renal disease. [facility]-[id number] Procedure Note Interface, Radiology Results Incoming - 08/09/2019 10:35 PM STRINGING MACHINE TENDER EXAMINATION: US RENAL DOPPLER CLINICAL HISTORY: kristen [...] relate d to underlying medical/parenchymal renal disease. [facility]-[id number] Performing Organization Address City/[facility]/ZIP Code Phon e Number [facility] [address] [place] [address] Body fluid consult (08/09/2019 11:49 AM STRINGING MACHINE TENDER) Body fluid consult Done [facility] Comment: HOSPITAL Approximately 1 granular cast per low power fiel d. One hyaline cast per low power field. Small cluster of tubular epithelial kallie ls. No tubular epithelial casts seen. Findings reviewed with Dr. Racquel weaver on 08/09/2019 Reviewed by Camila Richard M.D. 08/09/2019 Specimen Fluid Performing Organization Address [facility] Phon e Number [facility] DEPARTMENT OF PATHOLOGY AND [address] [place] [address] [address] Urinalysis, automated with microscopy (08/09/2019 11:49 AM STRINGING MACHINE TENDER) Pathologist Sig nature Color, UA Straw [facility] Appearance, UA Clear [facility] Specific gravity, UA 1.006 1.001 - 1.035 [facility] pH, UA 5.0 5.0 - 8.5 [facility] Protein, UA 3+ (A) Negative [facility] Glucose, UA 3+ (A) Negative [facility] Ketones, UA Negative Negative [facility] Bilirubin, UA Negative Negative [facility] Blood, UA Small (A) Negative [facility] Nitrite, UA Negative Negative [facility] Urobilinogen, UA <2.0 <2.0 [facility] Leukocyte esterase, Negative Negative [facility] Epithelial cells, UA <1 /HPF [facility] WBC, UA None seen 0 - 4 /HPF [facility] RBC, UA 2 0 - 5 /HPF [facility] Bacteria, UA Few None seen [facility] Granular casts, UA 1 0 - 1 /LPF [facility] Hyaline casts, UA 1 /LPF [facility] Yeast, UA None seen [facility] Yeast with None seen [facility] pseudohyphae, UA HOSPITAL Specimen Urine Performing Organization Address City/[facility] Phon e Number [facility] DEPARTMENT OF PATHOLOGY AND [address] [place] [address] [phone] [address] Barnett antibody (08/09/2019 11:45 AM STRINGING MACHINE TENDER) Barnett antibody <0.2 0.0 - 0.9 [facility] Barnett antibody Negative [facility] Comment: EPISCOPALIAN Anti-Barnett antibodies occurs in 30-35% of system ic lupus erythematosus HOSPITAL (SLE) cases, but is very specific for SLE. It may also present in mixed connective-tissue disease (MCTD). Specimen Serum Performing Organization Address City/[facility]/ZIP Code Phon e Number [facility] DEPARTMENT OF PATHOLOGY AND [address] [place] [address] [phone] [address] Glomerular basement membrane Ab IgG (IFA) (08/09/2019 11:45 AM STRINGING MACHINE TENDER) Glomerular Negative Negative [facility] basement [...] biopsy. Test developed and characteristics determined by [facility]. See Compliance Statement D: [employer] CS Performed by [facility], [address] [place] [phone] [email or web address] ([employer]), Dusty Rees MD, Lab. Director Specimen Serum Performing Organization Address City/[facility] Phon e Number [facility] [address] [place] [address] [facility] [address] [place] [address] DNA Ab screen (08/09/2019 11:45 AM STRINGING MACHINE TENDER) Pathologist Sig nature DNA Ab screen Not Detected Not-Detected [facility] Specimen Blood Performing Organization Address City/[facility]/ZIP Code Phon e Number [facility] DEPARTMENT OF PATHOLOGY AND [address] [place] [address] [phone] [address] [place] titer (08/09/2019 11:45 AM STRINGING MACHINE TENDER) Pathologist Sig nature T[place] titer 1:160 (A) Not-Detected [facility] TORITO pattern Speckle (A) Not-Detected [facility] Specimen Blood Performing Organization Address City/[facility]/ZIP Code Phon e Number [facility] DEPARTMENT OF PATHOLOGY AND [address] [place] [address] [phone] [address] Anti-neutrophilic cytoplasmic Abs panel (08/09/2019 11:45 AM STRINGING MACHINE TENDER) Pathologist Sig nature ANCA screen Negative Negative [facility] Specimen Blood Performing Organization Address City/[facility]/ZIP Code Phon e Number [facility] DEPARTMENT OF PATHOLOGY AND [address] [place] [address] [phone] [address] C3 complement component (08/09/2019 11:45 AM STRINGING MACHINE TENDER) Pathologist Sig [facility] C3 complement 92 90 - 180 mg/dL [facility] L Specimen Plasma specimen Performing Organization Address City/[facility] Phon e Number [facility] DEPARTMENT OF PATHOLOGY AND [address] [place] [address] [phone] [address] C4 complement component (08/09/2019 11:45 AM STRINGING MACHINE TENDER) Pathologist Sig [facility] C4 complement 38 10 - 40 mg/dL [facility] Specimen Plasma specimen Performing Organization Address [facility] Phon e Number [facility] DEPARTMENT OF PATHOLOGY AND [address] [place] [address] [phone] [address] TORITO (08/09/2019 11:45 AM STRINGING MACHINE TENDER) Pathologist [facility] TORITO screen Positive (A) Negative [facility] Comment: HOSPITAL Test performed using [employer] DAPI TORITO kit (Indirect Immunofluorescence Assay) for Anti-Nuclear Antibody on BonfyreA-Lyser 160 Analyzer. Specimen Blood Performing Organization Address City/[facility] Phon e Number [facility] DEPARTMENT OF PATHOLOGY AND [address] [place] [address] D-dimer (08/09/2019 5:20 AM STRINGING MACHINE TENDER) Pathologist [facility] D-dimer 2.05 (H) 0.00 - 0.40 [facility] Comment: ug/mL FEU HOSPITAL Units are ug/ml Fibrinogen Equivalent Unit. When combined with low clinical probability, D-dimer r esults of less than 0.5 ug/ml FEU have a good negative pred ictive value in excluding PE or DVT. For D-dimer results greater than 0.5 ug/ml FEU fur er testing is indicated if PE or DVT is suspected clini lainey. Elevated D-dimer results have been reported in DVT, PE , and DIC cases and may indicate the presence of a clot. D-dimer results may be elevated due to old age, pregna ncy, inflammatory diseases, trauma, post-operative states, sepsis, and malignancies. Specimen Blood Performing Organization Address City/[facility] Phon e Number [facility] DEPARTMENT OF PATHOLOGY AND [address] [place] [address] [address] Venous blood gas (08/09/2019 5:20 AM STRINGING MACHINE TENDER) Pathologist [facility] pH, venous 7.28 (L) 7.32 - 7.42 [facility] pCO2, venous 44 (L) 45 - 51 mmHg [facility] pO2, venous 39 25 - 40 mmHg [facility] Base excess, venous -6 (L) -2 - 2 meq/L [facility] O2 saturation, 66 40 - 70 % [facility] Bicarbonate, venous 20.2 (L) 21.0 - 28.0 [facility] mmol/L HOSPITAL Specimen Blood Performing Organization Address [facility] Phon e Number [facility] DEPARTMENT OF PATHOLOGY AND [address] [place] [address] [address] Creatine kinase, total (CPK) (08/09/2019 4:00 AM STRINGING MACHINE TENDER) [facility] Creatine kinase 42 26 - 192 U/L [facility] L Specimen Plasma specimen Performing Organization Address City/[facility] Phon e Number [facility] DEPARTMENT OF PATHOLOGY AND [address] [place] [address] [address] [place] lambda free light chain with ratio (08/09/2019 12:17 AM STRINGING MACHINE TENDER) Pathologist [facility] [place] light chain 164.45 (H) 3.30 - 19.40 [facility] mg/L [facility] Lambda light chain 95.70 (H) 5.70 - 26.30 [facility] mg/L [facility] [place] lambda ratio 1.72 (H) 0.26 - 1.65 [facility] Specimen Plasma specimen Performing Organization Address City/[facility] Phon e Number [facility] DEPARTMENT OF PATHOLOGY AND [address] [address] Serum electrophoresis (08/09/2019 12:17 AM STRINGING MACHINE TENDER) Protein 5.8 (L) 6.3 - 8.3 [place] Comment: g/dL EPISCOPALIAN Hmoskht8287.6-7.0 g/dL HOSPITAL 1 gtkz0063.4-7.6 g/dL 7 months-9nmfq761.1-7.3 g/dL 1-2 .6-7.5 g/dL >3 xdysq079.0-8.0 g/dL 18-5646302.3-8.3 g/dL SPE albumin 3.69 (L) 4.00 - 5.30 [place] g/dL [facility] SPE alpha 1 0.16 0.10 - 0.25 [place] g/dL [facility] SPE alpha 2 0.70 0.58 - 0.84 [place] g/dL [facility] SPE beta 0.56 0.50 - 1.10 [place] g/dL [facility] SPE gamma 0.69 0.60 - 1.30 [place] g/dL [facility] SPE extended See [place] interpretation CommentComment: EPISCOPALIAN Total protein and HOSPITAL albumin are decreased suggesting protein malnutrition. SPE interpretation See [place] CommentComment: ROCÍO Coreas MD; Gabino Bazan MD; Sharon Zhou, PhD; Home Gooden MD Specimen Serum Performing Organization Address City/[facility] Phon e Number [facility] DEPARTMENT OF PATHOLOGY AND [address] [place], [place] [address] Lactic acid level (08/09/2019 12:17 AM STRINGING MACHINE TENDER) Pathologist Sig nature Lactic acid 0.8 0.5 - 2.2 mmol/L [facility] Specimen Blood Performing Organization Address City/[facility] Phon e Number [facility] DEPARTMENT OF PATHOLOGY AND [address] [place] [address] [place] carotid duplex (08/08/2019 9:20 PM STRINGING MACHINE TENDER) Specimen Narrative Performed At [facility] Carotid A rtery Duplex Report [address] [place] [address] For it quality assurance analyst purposes, the categorization of the degree of the stenosis of this exam is based on criteria described i n the IAC carotid stenosis grading white paper( www.intersocietal.org/Va scular) and Josias Christian., Trenton Quach, et al. Carotid artery stenosis: morin-scale and Doppler US diagnosis-- Society of Radiologists in Ultrasound Consensus Conference. Radio logy. 2002; 229(2):340-6. Pat.Name: AURY MOULTON Pat.ID: [id number] .Date: 08/08/2019 Refer.MD: NITA ORLANDO MD Exam Time: 8:33:00 PM Study Type:C arotid Age: 7 1940,79Y Sex: FEMALE Sonogrphr: ADALI Thakur RCS Pat. Stat.:Inpati ent Room: [place] [address] Tape Vol : , [facility] - 4: [address] Echo Libby nt ID:[id number] Order ID: [id number] Reason for Study:Dizziness. History of C KD, [...] Radiology Results In - 2019 12:28 AM [facility] Vascular Ultrasound Laboratory Carotid Artery Dupl ex Report [address] [place] [address] For it quality assurance analyst purposes, the rachel gorization of the degree of the stenosis of this exam is based on criteria described in the IAC carotid stenosis grading white paper( www.intersocietal.org/Vascular) and Gino, E.Matthias., Main, C.B., et al. Carotid artery stenosis: morin-scale and Doppler US diagnosis--Society of Radiologists in Ultrasound Consensus Conference. Radiology. 2003 Nov; 229(2):340-6. Pat.Name: AURY MOULTON Pat.I D: [id number] St.Date: 08/08/2019 Refer .MD: NITA ORLANDO MD Exam Time: 8:33:00 PM Study Type:Carotid Age: 7 1940,79Y Sex: FEMALE Sonogrphr: ADALI Thakur, JEVON Pat. Stat.:Inpatient Room: [place] [address] Tape Vol: JM, CPT - 4: 40[address] Echo Event ID:[id number] Order ID: [id number] Reason for Study:Dizziness. History of C KD, [...] Eduard Atkinson MD, RPVI Performing Organization Address City/[facility]/ZIP Code Phon e Number [facility] [address] [place] [address] [place] Renal (08/08/2019 3:35 PM STRINGING MACHINE TENDER) Specimen Narrative Performed At EXAMINATION: US RENAL [facility] CLINICAL HISTORY: obstruction COMPARISON: No TECHNIQUE: Routine [...] No stones or hydronephrosis on either side. [facility]-[id number] Procedure Note Interface, Radiology Results Incoming - 08/08/2019 6:36 PM STRINGING MACHINE TENDER EXAMINATION: US RENAL CLINICAL HISTORY: obstruction COMPARISON: [...] No stones or hydronephrosis on either side. [facility]-[id number] Performing Organization Address City/[facility]/ZIP Code Phon e Number [facility] [address] [place] [address] Urinalysis screen and microscopy, with reflex to culture (08/08/2019 1:43 PM STRINGING MACHINE TENDER) Specimen site Clean catch [facility] Color, UA Straw [facility] Appearance, UA Hazy [facility] Specific gravity, 1.006 1.001 - 1.035 [facility] pH, UA 5.0 5.0 - 8.5 [facility] Protein, UA 2+ (A) Negative [facility] Glucose, UA 3+ (A) Negative [facility] Ketones, UA Negative Negative [facility] Bilirubin, UA Negative Negative [facility] Blood, UA Moderate (A) Negative [facility] Nitrite, UA Negative Negative [facility] Urobilinogen, UA <2.0 <2.0 [facility] Leukocyte esterase, Negative Negative [facility] WBC, UA 10 (H) 0 - 4 /HPF [facility] RBC, UA 6 (H) 0 - 5 /HPF [facility] Bacteria, UA Few None seen [facility] Yeast, UA None seen [facility] Yeast with None seen [facility] pseudohyphae, [facility] Amorphous crystals Few [facility] Granular casts, UA 3 (H) 0 - 1 /LPF [facility] Specimen Urine Performing Organization Address City/[facility] Phon e Number [facility] DEPARTMENT OF PATHOLOGY AND [address] [place] [address] [phone] [address] Urea nitrogen, urine, random (08/08/2019 1:43 PM STRINGING MACHINE TENDER) Pathologist Sig nature Urea nitrogen, urine, 184 mg/dL [facility] Specimen Urine Performing Organization Address City/[facility] Phon e Number [facility] DEPARTMENT OF PATHOLOGY AND [address] [place] [address] [phone] [address] Sodium level, urine, random (08/08/2019 1:43 PM STRINGING MACHINE TENDER) Pathologist Sig nature Sodium, urine, random 109 mEq/L [facility] Specimen Urine Performing Organization Address City/[facility]/ZIP [facility] Phon e Number [facility] DEPARTMENT OF PATHOLOGY AND [address] [place] [address] [phone] [address] Protein, urine, random (08/08/2019 1:43 PM STRINGING MACHINE TENDER) Pathologist Sig nature Protein, urine random 153 mg/dL [facility] Specimen Urine Performing Organization Address City/[facility]/ZIP [facility] Phon e Number [facility] DEPARTMENT OF PATHOLOGY AND [address] [place] [address] [phone] [place] [address] Creatinine level, urine, random (08/08/2019 1:43 PM STRINGING MACHINE TENDER) Pathologist Roc max Creatinine, urine, 23 mg/dL [facility] Specimen Urine Performing Organization Address [facility] Phon e Number [facility] DEPARTMENT OF PATHOLOGY AND [address] [place] [phone] [facility] [address] [place] [address] Troponin (08/08/2019 4:04 AM STRINGING MACHINE TENDER)Only the most recent of3 resultswithin the time period is included. Troponin 0.075 (H) 0.000 - 0.040 [facility] Comment: ng/mL HOSPITAL In patients suspected of [...] ng/mL Specimen Plasma specimen Performing Organization Address City/[facility] Phon e Number [facility] DEPARTMENT OF PATHOLOGY AND [address] [place] [phone] [facility] [address] [place] [address] Comprehensive metabolic panel (08/08/2019 2:24 AM STRINGING MACHINE TENDER)Only the most recent of3 resultswithin the time period is included. Sodium 140 135 - 148 [facility] mEq/L [facility] Potassium 4.7 3.5 - 5.0 [facility] mEq/L [facility] Chloride 109 98 - 112 mEq/L [facility] CO2 16 (L) 24 - 31 mEq/L [facility] Anion gap 15@ANIO 7 - 15 mEq/L [facility] BUN 67 (H) 8 - 23 mg/dL [facility] Creatinine 4.80 (H) 0.50 - 0.90 [facility] mg/dL [facility] Glucose 180 (H) 65 - 99 mg/dL [facility] Calcium 7.9 (L) 8.8 - 10.2 [facility] mg/dL [facility] Protein 6.0 (L) 6.3 - 8.3 g/dL [facility] Comment: HOSPITAL Ayjamnd3316.6-7.0 g/dL 1 itjx7081.4-7.6 g/dL 7 months-3cklg192.1-7.3 g/dL 1-2 .6-7.5 g/dL >3 ggzer462.0-8.0 g/dL 18-7799916.3-8.3 g/dL Albumin 2.1 (L) 3.5 - 5.0 g/dL [facility] A/G ratio 0.5 (L) 0.7 - 3.8 [facility] Alkaline phosphatase 58 35 - 104 U/L [facility] AST 19 10 - 35 U/L [facility] ALT 12 5 - 50 U/L [facility] Total bilirubin <0.2 0.0 - 1.2 [facility] mg/dL HOSPITAL Specimen Plasma specimen Performing Organization Address City/[facility] Phon e Number [facility] DEPARTMENT OF PATHOLOGY AND [address] [place] [phone] GENOMIC MEDICINE [address] [address] Thyroid stimulating hormone (08/08/2019 1:40 AM STRINGING MACHINE TENDER) Pathologist Sig nature TSH 4.68 (H) 0.27 - 4.20 uIU/mL [facility] Specimen Plasma specimen Performing Organization Address City/[facility] Phon e Number [facility] DEPARTMENT OF PATHOLOGY AND [address] [place] [address] [phone] [address] T4, free (08/08/2019 1:40 AM STRINGING MACHINE TENDER) Pathologist Sig nature T4, free 1.3 0.9 - 1.7 ng/dL [facility] Specimen Plasma specimen Performing Organization Address City/[facility]/ZIP Code Phon e Number [facility] DEPARTMENT OF PATHOLOGY AND [address] [place] [address] [phone] [address] Hemoglobin A1c (08/08/2019 1:40 AM STRINGING MACHINE TENDER) Hemoglobin A1C 8.3 (H) 4.0 - 5.6 % [facility] Comment: HOSPITAL HbA1c cutoffs for diagnosing diabetes: [...] 1 diabetes. Specimen Blood Performing Organization Address City/[facility] Phon e Number [facility] DEPARTMENT OF PATHOLOGY AND [address] [place] [address] [phone] [address] Lipid panel (08/08/2019 1:40 AM STRINGING MACHINE TENDER) Cholesterol 259 (H) <200 mg/dL [facility] Triglycerides 179 (H) <150 mg/dL [facility] HDL cholesterol 48 >40 mg/dL [facility] LDL cholesterol 188 (H)Comment: <100 mg/dL [place] Result obtained by EPISCOPALIAN direct [employer] measurement [facility]id [facility] interpretation Comment: EPISCOPALIAN Total Cholesterol (mg/dL) [facility] [place] <200 Desirable [...] mg/dL) Specimen Plasma specimen Performing Organization Address [facility] Phon e Number [facility] DEPARTMENT OF PATHOLOGY AND [address] [place] [phone] [address] CRITICAL CARE (08/07/2019 8:33 PM STRINGING MACHINE TENDER) Narrative Performed At Gabino Feliz MD 0 [...] old charts Lipase level (08/07/2019 6:42 PM STRINGING MACHINE TENDER) Pathologist Roc max Lipase 87 (H) 13 - 60 U/L [facility] Specimen Plasma specimen Performing Organization Address [facility] Phon e Number [facility] DEPARTMENT OF PATHOLOGY AND [address] [place] [address] [address] [place] [address] [place] [address] Amylase level (08/07/2019 6:42 PM STRINGING MACHINE TENDER) Pathologist Roc max Amylase 100 28 - 100 U/L [facility] Specimen Plasma specimen Performing Organization Address City/State/ZIP Code Phon e Number [facility] DEPARTMENT OF PATHOLOGY AND [address] [place], [place] [address] [facility] [address] [place] [address] Echocardiogram complete w contrast and 3D if needed (08/07/2019 12:45 AM STRINGING MACHINE TENDER) Specimen Narrative Performed At [facility] Echo cardiography Report [address] [facility], [place] [address] Pat.Name: AURY MOULTON Pat.ID: [id number] .Date: 08/08/2019 Refer.MD: NITA ORLANDO MD Exam Time: 12:19:00 AM Study Type:Ro utine Echo Height: 58in Weight: 106lb BSA: 1.39 m2 Ag e: 1940,79Y Sex: FEMALE BP: 168/77 HR: 70 bpm Sonogr phr: Delmy Warner, RCS, RVT Pat. Stat.:Inpatient Room: ED-20 CPT - 4: 39075, 07050, 89334 Study Status:[facility] Echo Event ID:[id number] Order ID: [id number] Reason for Study:SOB Procedures: 2D Echo, 2D Echo, Colorflow Doppler, Portable Race: C SUMMARY: LV size is diku-id-xkfgtpqchv enlarged. LV EF is moderately to severely depressed. Regional wall motion abnormalities prese nt. Estimated EF is 30-34%. Pleural effusion is present. LV filling pressure is borderline elevat ed. Estimated PA systolic pressure is 33-38 mmHg, assuming a mean RAP of 0-5 mmHg. FINDINGS: LV: LV size is kbrg-zi-weoodtbz ly enlarged. LV EF is moderately to [...] of 0-5 mmHg. MEASUREMENTS: 2D Parasternal [place] Ao An 1.7 cm LVPWd 0.67 cm [...] Radiology Results In - 2019 10:43 PM STRINGING MACHINE TENDER Echocardiography Report [address] [place] [address] Pat.Name: AURY MOULTON Pat.I D: [id number] .Date: 08/08/2019 Refer .MD: NITA ORLANDO MD Exam Time: 12:19:00 AM Study Type:Routine Echo Height: 58in Weigh t: 106lb BSA: 1.39 m2 Age: 7 1940,79Y Sex: FEMALE BP: 168/77 HR: 70 bpm Sonog rphr: Delmy Warner, RCS, RVT Pat. Stat.:Inpatient Room: ED-20 CPT - 4: 62632, 41581, [address]138 Study Status:Final Echo Event ID:[id number] Order ID: [id number] Reason for Study:SOB Procedures: 2D Echo, 2D Echo, Colorflow Doppler, Portable Race: C SUMMARY: LV size is tbqv-aa-yfvrvzgaix enlarged. LV EF is moderately to severely depressed. Regional wall motion abnormalities prese nt. Estimated EF is 30-34%. Pleural effusion is present. LV filling pressure is borderline elevat ed. Estimated PA systolic pressure is 33-38 mmHg, assuming a mean RAP of 0-5 mmHg. FINDINGS: LV: LV size is puhb-tq-undzvcjxwl enlarged. LV EF is moderately to severely [...] of 0-5 mmHg. MEASUREMENTS: 2D Parasternal [place] Ao An 1.7 cm LVPW d 0.67 [...] PM Dilan Mcpherson M.D. Performing Organization Address City/State/ZIP Code Phon e Number [facility] [address] [place] [address] Pv physiologic arterial lower extremity complete w ramon (04/11/2019 10:30 AM CDT) Specimen Narrative Performed At [facility] Lower Extremity Art erial Physiologic Report [address] [place] [address] Pat.Name: AURY MOULTON Pat.ID: [id number]Date: 04/11/2019 Refer.MD: NEMESIO VIDES MD Exam Time: 9:59:00 AM Study Type:P hysiologic Leg Age: 7 1940,79Y Sex: FEMALE Sonogrphr: Melissa Espinoza RN, RVT, Deonna Pritchard, RVT [facility] - 4: 43357 Echo Event ID:[id number] Order ID: [id number] Reason for Study:Follow up post angiopla sty [...] Toe GreatToe P 104 mmHg RAMON PT RAOMN PT 0.82 RAMON PT 0.55 RAMON DP RAMON DP 0.81 RAMON DP 0.52 Right TBI TBI 0.46 Left TBI TBI 0.41 Signed 04/26/2019 05:44 PM Tony Dyson MD, FACS, RPVI Procedure Note Interface, Radiology Results In - 2018 5:44 PM STRINGING MACHINE TENDER [facility] Lower Extremity Arterial P hysiologic Report [address] [place] [address] Pat.Name: AURY MOULTON Pat.I D: [id number] St.Date: 04/11/2019 Refer .MD: NEMESIO VIDES MD Exam Time: 9:59:00 AM Study Type:Physiologic Leg Age: 9 1940,79Y Sex: FEMALE Sonogrphr: Melissa Espinoza RN, RVT, Deonna Pritchard RVT CPT - 4: 02341 Echo Event ID:[id number] Order ID: [id number] Reason for Study:Follow up post angiopla sty [...] TBI TBI 0.41 Signed 04/26/2019 05:44 PM Toyn Dyson MD, FACS, RPVI Performing Organization Address City/State/ZIP Code Phon e Number [facility] [address] [place] [address] after 04/03/2019 Insurance Payer Benefit Plan / Subscriber ID Effective Dates Phone Addre ss Type Group HUMANA MEDICARE HUMANA HMO MADAI [id number] 2019-Present HMO PLUS MEDICARE Advance Directives For more information, please contact: [phone] Type Date Recorded Patient Traffic Investigator Explanati on Advance Directives, Living Will and Medical Power of Supervisory Civil Engine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
--- OUTSIDE RECORDS SUMMARY | 2020-04-03 21:15 | XMS REPORT | Clinical Summary ---
:1940 Author Organization [facility] Address [address] [place] [address] Care Team Providers Name Role Phone Pcp Primary Care Provider Unavailable Allergies Active Allergy Reactions Severity Noted Date Comments Codeine Other (See Comments) Medium 12/02/2014 Tramadol Other (See Comments) 06/24/2016 Medications Medication Sig Dispensed Refills Start End Status Date Date amLODIPine Take 5 mg by mouth [...] Active (COLACE) 100 MG mouth 2 (two) capsuleIndications times daily. : constipation polyethylene Take 17 g by mouth 0 Active glycol (GLYCOLAX) every 3 (three) 17 gram days. packetIndications: constipation hydrALAZINE Take 25 mg by 0 Acti ve (APRESOLINE) 25 MG mouth 3 (three) tabletIndications: times daily. hypertension, hold for SBP < 110 or HR < 60 levothyroxine Take 50 mcg by 0 A ctive (SYNTHROID, mouth Every LEVOTHROID) 50 MCG morning on an tablet empty stomach. insulin aspart Inject 0 Activ e U-100 (NOVOLOG) subcutaneously 3 100 unit/mL (3 mL) (three) times InPnIndications: daily before type 2 diabetes meals. mellitus, 200 -250 = 2 units, 251-300= 4 units, 301- 305 = 6 units; 351-400=8 units PENTOXIFYLLINE Take 400 mg by 0 Active ORALIndications: mouth 2 (two) peripheral times daily. vascular disease, Pentoxifylline ER tablet extended pantoprazole Take 40 mg by 0 Act siddharth (PROTONIX) 40 MG mouth daily. tablet acetaminophen Take 650 mg by 0 A ctive (TYLENOL) 325 MG mouth every 4 tablet (four) hours as needed for Pain. LORazepam (ATIVAN) Take 0.5 mg by 0 Discontinued 0.5 MG tablet mouth every 8 0 020 (S top Taking at (eight) hours as Dis charge) needed for Anxiety. insulin glargine Inject 5 Units 0 Discontinued (LANTUS) 100 subcutaneously 2 020 (Stop Taking at unit/mL injection (two) times daily Discharge) Use as directed . hydrocortisone Place 25 mg 0 Exp ired (ANUSOL-HC) 25 mg rectally 2 (two) 0 020 suppositoryIndicat times daily. ions: hemorrhoids Active Problems Problem Noted Date Gastrointestinal hemorrhage with melena 09/25/2019 GIB (gastrointestinal bleeding) 09/25/2019 ESRD (end stage renal disease) on dialysis Encounters Date Type Specialty Care Team Description 09/27/2019 Anesthesia Event Gastroenterology Rich Alvarez MD Ahmmed, Elizabeth Hunter, HAND BOOKED FOLDER AND STITCHER 09/27/2019 Surgery Gastroenterology Dai LevineOSC ISELA Fry MD 09/26/2019 Travel 09/25/2019 [facility] Gastroint tinal hemorrhage with melena; - Encounter Medicine MD Marc ESRD on hemodialysis ([facility]); 10/03/2019 Gadicherla, Essential hyper tension; Belle Anemia due to c hronic kidney disease, on chronic dialysis ([facility]); MD Jared Hypokalemia; , Type 1 diabetes mellitus with chronic kidney disease on chronic dialysis ([facility]); MD Giles Malnutrition, unspecified type ([facility]); Jacinto, Closed fracture of hip, unspecified laterality, initial encounter ([facility]); Ciara Barry, Hypertension, unspecified type; Anemia, unspeci fied type; ESRD (end stage renal disease) on dialysis (HCC); Gastrointestina l hemorrhage, unspecified gastrointestinal hemorrhage type 09/25/2019 Telephone Gastroenterology Dai Levine MD after 04/03/2019 Social History Tobacco Use Types Packs/Day Years Used Date Never Assessed Sex Assigned at Date Recorded Not on file Last Filed Vital Signs Vital Sign Reading Time Taken Comments Blood Pressure 155/68 10/03/2019 2:42 PM CDT Pulse 66 10/03/2019 4:21 PM CDT Temperature 36.8 C (98.3 F) 10/03/2019 2:42 PM CDT Respiratory Rate 16 10/03/2019 4:21 PM CDT Oxygen Saturation 92% 10/03/2019 4:21 PM CDT Inhaled Oxygen Concentration 21% 10/01/2019 8:22 PM CDT Weight 41.9 kg (92 lb 6 oz) 10/03/2019 11:15 AM CDT Height 149.9 cm (4' 11") 09/27/2019 9:00 AM per daught er CDT Body Mass Index 18.66 09/27/2019 9:00 AM CDT Plan of Treatment Not on [...] 2:41 ENDOSCOPY URL PM CDT SIGMOIDOSCOPY 09/27/2019 1:32 Gastrointestinal PM CDT hemorrhage, unspecified gastrointestinal hemorrhage [...] are i n the results section. after 04/03/2019 Results TRANSFUSION SERVICE REPORT - SCAN (10/04/2019 [...] time period is included. Pathologist Sig nature CROSSMATCH COMPATIBLE SAFETRACE TX Unit ABO O Pos SAFETRACE TX UNIT NUMBER [id number] [place]ACE [place] Status TX_TIMEINCHART SAF[place]ACE [place] Blood Bank Product RED BLOOD CELLS [place] PRODUCT CODE [id number] [place] Specimen Other Performing Organization Address City/[facility]/Zipcode Phone Number [place] POC-Glucose meter (10/03/2019 4:47 PM CDT)Only the most recent of34 results within the time period is included. POC-Glucose Meter 81Comment: : 70 - 110 mg/dL [facility] TESTED AT [address], [address]: Medical Insurance Claims Processor/Technic tristin ID = [id number] for [facility] Specimen Blood Performing Organization Address City/[facility] Phone Number [address] [address] CENTER CBC with platelet count + automated diff (10/03/2019 6:01 AM CDT)Only the most recent of8 resultswithin the time period is included. Pathologist Sig nature WBC 4.5 3.5 - 10.5 [facility] K/L [facility] RBC 2.92 (L) 3.93 - 5.22 [facility] M/L [facility] Hemoglobin 8.3 (L) 11.2 - 15.7 [facility] GM/DL [facility] Hematocrit 25.7 (L) 34.1 - 44.9 % [facility] MCV 88.0 79.4 - 94.8 fL [facility] MCH 28.4 25.6 - 32.2 pg [facility] MCHC 32.3 32.2 - 35.5 [facility] GM/DL [facility] RDW 14.6 (H) 11.7 - 14.4 % [facility] Platelets 226 150 - 450 K/CU [facility] MPV 9.7 9.4 - 12.3 fL [facility] nRBC 0 0 - 0 /100 WBC [facility] % Neutros 69 % [facility] % Lymphs 21 % [facility] % Monos 7 % [facility] % Eos 2 % [facility] % Baso 1 % [facility] # Neutros 3.10 1.56 - 6.13 [facility] # Lymphs 0.93 (L) 1.18 - 3.74 [facility] # Monos 0.32 0.24 - 0.36 [facility] # Eos 0.07 0.04 - 0.36 [facility] # Baso 0.04 0.01 - 0.08 [facility] Immature 0 0 - 1 % [facility] Granulocytes-Relative [facility] Specimen Blood Performing Organization Address City/State/Zipcode Phone Number [facility] [address] [place] [address] CENTER Basic Metabolic Panel (10/03/2019 6:01 AM CDT)Only the most recent of6 results within the time period is included. Sodium 139 136 - 145 meq/L [facility] Potassium 3.6 3.5 - 5.1 meq/L [facility] Chloride 105 98 - 107 meq/L [facility] CO2 25 22 - 29 meq/L [facility] BUN 18 7 - 21 mg/dL [facility] Creatinine 3.59 (H) 0.57 - 1.25 [facility] mg/dL [facility] Glucose 74 70 - 105 mg/dL [facility] Calcium 7.4 (L) 8.4 - 10.2 [facility] mg/dL [facility] EGFR 12Comment: ESTIMATED mL/min/1.[address] [facility] GFR IS NOT m [facility] CREATININE CLEARANCE IN PREDICTING GLOMERULAR FILTRATION RATE. ESTIMATED GFR IS NOT APPLICABLE FOR DIALYSIS PATIENTS. Specimen Blood Narrative Performed At Medical Insurance Claims Processor ID - PIAYA L [facility] Performing Organization Address City/[facility] Phone Number [address] [address] CENTER Transfuse Leuko-Red RBC (10/03/2019 1:35 AM CDT)Only the most recent of2 resultswithin the time period is included.Type and screen, automated (10/02/2019 6:44 PM CDT)Only the most recent of2 resultswithin the time period is included. Pathologist Sig nature ABO/RH AUTOMATED O POSITIVE [facility] EMERGENCY DEPARTMENT Ab Scrn NEGATIVE [facility] Specimen Blood Performing Organization Address [facility]cond Phone Number [address] [address] Hemoglobin and hematocrit (09/29/2019 6:11 PM CDT) Pathologist Sig nature Hemoglobin 8.5 (L) 11.2 - 15.7 GM/DL [facility] Hematocrit 26.9 (L) 34.1 - 44.9 % [facility] Specimen Blood Narrative Performed At Medical Insurance Claims Processor ID - [id number] [facility] Performing Organization Address City/[facility] Phone Number [address] [address] CENTER Prothrombin time/INR (09/28/2019 4:10 AM CDT)Only the most recent of4 results within the time period is included. Pathologist Sig nature Protime 14.4 (H) 11.9 - 14.2 seconds [facility] INR 1.2 <=5.9 [facility] Specimen Blood Narrative Performed At Effective 11/15/2018: PT Reference Range [facility] Change New: 11.9-14.2 Previous: 11.7-14.7 RECOMMENDED COUMADIN/WARFARIN INR THERAPY RANGES STANDARD DOSE: 2.0-3.0 Includes: PROPHYLAXIS for venous thrombosis, systemic embolization; TREATMENT for venous thrombosis and/or pulmonary embolus. HIGH RISK: Target INR is 2.5-3.5 for patients wiht mechanical heart valves. Performing Organization Address City/[facility]/Zipcode Phone Number [facility] [address] [place] [address] [place] Hepatic function panel (09/28/2019 4:10 AM CDT)Only the most recent of3 results within the time period is included. Pathologist Sig nature Protein, Total 5.5 (L) 6.0 - 8.3 gm/dL [facility] Albumin 2.5 (L) 3.5 - 5.0 g/dL [facility] Total Bilirubin 0.5 0.2 - 1.2 mg/dL [facility] Bilirubin, Direct 0.4 0.1 - 0.5 mg/dL [facility] Alkaline Phosphatase 71 40 - 150 U/L [facility] AST 20 5 - 34 U/L [facility] ALT <6 (L) 6 - 55 U/L [facility] Specimen Blood Narrative Performed At Medical Insurance Claims Processor ID - MARCELO Sanchez [facility] Performing Organization Address City/State/Zipcode Phone Number [facility] [address] [place] [address] CENTER ECHOCARDIOGRAM REPORT - SCAN (09/27/2019 9:10 PM CDT) Narrative Performed At This result has an attachment that is no t available. REPORT OF PROCEDURE - ENDOSCOPY URL (09/27/2019 2:41 PM CDT) Narrative Performed At This result has an attachment that is no t available. 2D Echo W/Doppler(CW/PW/Color) (09/27/2019 9:11 AM CDT) Pathologist Sig nature Ejection Fraction [facility] Specimen Narrative Performed At Transthoracic Echocardiography Report (T TE) [facility] Demographics Patient Name AURY MOULTON Date of Study 09/27/2019 HARMEET Gender Female Visit Number [id number] Race Room Number 922 Number Date of 1940 Referring Ciara Barry Physician MD Jacinto Age 79 year(s) Wild Animal Caretaker Mary Murillo RD CS Interpreting Quincy Guillaume MD Physician Fellow Joanna Oconnor MD Procedure Type of [...] Ventricle The LV endocardium is adequately visualized. The left ventricle is chamber size (by vol index) is normal (female - LVED vol - 29-61ml/m2). Mild concentric hypertrophy. All of the LV segments contract normally . LVEF by Torres's method of disk assessment is normal (55-60%) . Grade 1 diastolic dysfunction (impaired relaxati on and low-normal LA pressure). Left Atrium LA size is mildly enlarged (35-41 ml/m2) . Right Ventricle The right ventricular chamber size and systolic function are within normal limits. Right Atrium RA size is normal. Atrial Septum Normal interatrial septum by available views. Aortic Valve Normal AoV structure. Mitral Valve Mild MV leaflet thickening. Mild mitral annular calcification. Trace mitral regurgitation. Tricuspid Valve TV structure is normal. Estimated peak systolic PA pressure is 25-30 mmHg (normal range) . Pulmonic Valve Normal PV structure and function by limited views and Doppler. Aorta Aortic root size (SInus of Valsalva diameter) is norm al . Pericardium No significant pericardial effusion is visualized. IVC/SVC/PA/PV/Pleural The estimated RA [...] Gradient: 2.34 mmHg Mean Gradient: 1.9 mmHg Deceleration Time: 233 msec Area (continuity): 3.71 cm^2 [...] Mean Gradient: 3.65 mmHg LVOT Diameter: 2.06 cm LVOT VTI: 30.78 cm LVOT Area: 3.33 cm^2 LVOT SV:102.54 ml LVOT CO: 7.69 l/min LVOT CI: 5.87 l/min/m^2 Tricuspid Valve TR Velocity: 2.66 m/s TR Gradient: 28.37 mmHg Procedure Note Interface, External Ris In - 09/27/2019 11:02 AM CDT Transthoracic Echocardiography Report (TTE) Demographics Patient Name AURY MOULTON Date o f Study 09/27/2019 HARMEET Gender Female Visit Number [id number] [address] [place] [address] Number Date of 1940 Referr paul Casey MD Age 79 year(s) Sonogr apher Andreslouise Murillo [facility] Interp reting MD James Bonilla Fellow Joanna Oconnor MD Procedure Type of [...] se gments contract normally . LVEF by Torrse' s method of disk assessment is normal [...] TR Gradient: 28.37 mmHg Performing Organization Address City/State/Zipcode Phone Number [facility] ECHO [facility] Phosphorus (09/27/2019 4:26 AM CDT) Pathologist Sig nature Phosphorus 2.6 2.3 - 4.7 mg/dL [facility] Specimen Blood Narrative Performed At Medical Insurance Claims Processor ID - JB L [facility] Performing Organization Address City/[facility] Phone Number [address] [address] CENTER Hepatitis B surface antigen (09/26/2019 8:52 AM CDT) Pathologist Sig nature HBsAg Screen Nonreactive Nonreactive [facility] Specimen Blood Narrative Performed At Medical Insurance Claims Processor ID - HANNAH C [facility] Performing Organization Address City/[facility] [place] [address] CENTER Magnesium (09/26/2019 8:52 AM CDT) Pathologist Sig nature Magnesium 2.0 1.6 - 2.6 mg/dL [facility] Specimen Blood Narrative Performed At Medical Insurance Claims Processor ID - HANNAH C [facility] Performing Organization Address [facility] [place] [address] [place] XR hip 2 views left (09/26/2019 4:45 AM CDT) Specimen Narrative Performed At FINAL REPORT GE RIS CLINICAL HISTORY: "Fracture" COMPARISON: None. FINDINGS: 2 views of the left hip are submitted. There is no acute fracture or malalignme nt. There are fixation screws in the femoral neck which appear properly positioned. Surgical joselin overlie the left latera l hip. Signed: Daniel Chen MD Report Verified Date/Time: 09/26/2019 05:18:36 Procedure Note Interface, External Ris In - 09/26/2019 5:20 AM CDT FINAL REPORT CLINICAL HISTORY: "Fracture" COMPARISON: None. FINDINGS: 2 views of the left hip are submitted. There is no acute fracture or malalignme nt. There are fixation screws in the femoral neck which appear properly positioned. Surgical joselin overlie the left latera l hip. Signed: Daniel Chen MD Report Verified Date/Time: 09/26/2019 0 5:18:36 Performing Organization Address City/[facility] Phone Number [facility] Vitamin B12 and Folate (09/26/2019 4:09 AM CDT) Pathologist Sig nature Vitamin B12 1,334 (H) 213 - 816 pg/mL [facility] Folate 6.40 (L) >=7.00 ng/mL [facility] Specimen Blood Narrative Performed At Medical Insurance Claims Processor ID - [facility] Performing Organization Address [facility] Phone Number [address] [address] CENTER Iron, TIBC, % sat. (without ferritin) (09/26/2019 4:09 AM CDT) Pathologist Sig nature Iron 16.0 (L) 40.0 - 160.0 [facility] ug/dL [facility] TIBC 119 (L) 250 - 450 ug/dL [facility] Iron % Saturation 13 (L) 20 - 55 % [facility] Specimen Blood Narrative Performed At Medical Insurance Claims Processor ID - [facility] Performing Organization Address [facility] Phone Number [address] [address] CENTER Ferritin (09/26/2019 4:09 AM CDT) Pathologist Sig nature Ferritin 1,973.82 (H) 5.00 - 275.00 [facility] ng/mL [facility] Specimen Blood Narrative Performed At Medical Insurance Claims Processor ID - [facility] Performing Organization Address [facility] Phone Number [address] [address] CENTER ABORH, manual (09/26/2019 2:07 AM CDT) Pathologist Sig nature ABO Grouping O [facility] Rh Factor POS [facility] Specimen Blood Performing Organization Address City/[facility] Phone Number [address] [address] Blood Culture - Routine (Right Venipuncture) (09/26/2019 2:07 AM CDT) Pathologist Sig nature Result No growth in 5 days [facility] Specimen Blood - Entire right upper arm (body str ucture) Performing Organization Address [facility]/Zipcode Phone Number [address] [address] [place] Hemoglobin A1c (09/26/2019 1:33 AM CDT) Pathologist Sig nature Hemoglobin A1C 5.6 4.3 - 6.1 % [facility] Specimen Blood Performing Organization Address City/[facility] Phone Number [address] [address] [place] Comprehensive metabolic panel (09/25/2019 10:27 PM CDT) Protein, Total 6.0 6.0 - 8.3 [facility] gm/dL [facility] Albumin 2.8 (L) 3.5 - 5.0 [facility] g/dL [facility] Alkaline 88 40 - 150 U/L [facility] Phosphatase [facility] Total Bilirubin 0.5 0.2 - 1.2 [facility] mg/dL [facility] Sodium 134 (L) 136 - 145 [facility] meq/L [facility] Potassium 3.1 (L) 3.5 - 5.1 [facility] meq/L [facility] Chloride 101 98 - 107 [facility] meq/L [facility] CO2 19 (L) 22 - 29 meq/L [facility] BUN 45 (H) 7 - 21 mg/dL [facility] Creatinine 5.17 (H) 0.57 - 1.25 [facility] mg/dL [facility] Glucose 77 70 - 105 [facility] mg/dL [facility] Calcium 7.6 (L) 8.4 - 10.2 [facility] mg/dL [facility] AST 20 5 - 34 U/L [facility] ALT <6 (L) 6 - 55 U/L [facility] EGFR 8Comment: mL/min/1.73 [facility] ESTIMATED GFR IS sq [facility] NOT [facility] CREATININE CLEARANCE IN PREDICTING GLOMERULAR FILTRATION RATE. ESTIMATED GFR IS NOT APPLICABLE FOR DIALYSIS PATIENTS. Specimen Blood Narrative Performed At Medical Insurance Claims Processor ID - BS [facility] Performing Organization Address City/State/Zipcode Phone Number [facility] [address], [place] [id number] CENTER after 04/03/2019 Insurance Payer Benefit Plan / Subscriber ID Effective Phone Address T ype Group Dates HUMANA - HUMANA [id number] 2019-Prese Maps Contracted MEDICARE MGD MEDICARE ADV nt CARE Advance Directives For more information, please contact: [phone] Code Status Date Activated Date Inactivated Comments Full Code 09/25/2019 10:39 PM 10/03/2019 7:33 PM This code status was determined by: Patient
--- OUTSIDE RECORDS SUMMARY | 2020-04-03 21:20 | XMS REPORT | Continuity of Care Document ---
:1940 Author Organization [facility] t Address [address] [place] [place] [address] Care Team Providers Name Role Phone Pcp Primary Care Physician Unavailable Viktoria Estrada MD Attending Clinician Suzi HENDRICKS Attending Clinician Unavailable Ez HENDRICKS Attending Clinician Unavailable Alvino HENDRICKS Attending Clinician Unavailable Marc Huertas MD Attending Clinician Jared Chase MD Attending Clinician [phone] Merchant RIOS Attending Clinician Asha Abraham MD Attending Clinician Don Panda MD Attending Clinician Estrellita Alvarez MD Attending Clinician Elsa Vidal CRNA Attending Clinician Lisandra Levine MD Attending Clinician Jena PRATHER Attending Clinician Unavailable MARC HUERTAS Attending Clinician Unavailable Rashaun Murillo MD Attending Clinician Jason Magana MD Attending Clinician [phone] Héctor Attending Clinician Andre Feliz MD Attending Clinician Maicol Vides MD Attending Clinician ASHA ABRAHAM Admitting Clinician Unavailable CHIDI Admitting Clinician Unavailable Payers Payer Name Policy Type Policy Effective Date Expiration Date Sour ce Number MACARIO [id number] 2019 [facility] MEDICAREMANA O 00:00:00 Method ist GOLD PLUS [id number]-PresentHMO HUMANA - MEDICARE [id number] [address] [facility] Ce nter MEDICARE [id number] -PresentMaps Contracted Problems Condition Condition Condition Status Onset Resolution Last Treating Co mments Source Name Details Category Date Date Treatment Clinician Date Gastrointe Gastrointe Disease Active C [facility] stinal stinal 4-07 [facility] - hemorrhage hemorrhage 00:00: Me dical with with 00 Center melena melena GIB GIB Disease Active [facility] (gastroint (gastroint 4-07 Angelique kes - estinal estinal 00:00: Medical bleeding) bleeding) 00 Cent er Closed Closed Disease Active Overview: Ramón n fracture fracture 3-17 Added Method i of left of left 00:00: automatic st hip hip 00 ally from request for surgery [id number] Gastrointe Gastrointe Disease Active [place] stinal stinal 2-23 Methodi bleed bleed 00:00: st 00 Acute Acute Disease Active [facility] pulmonary pulmonary 2-18 Meth nery edema edema 00:00: st 00 Hematoma Hematoma Disease Active [place] of groin of groin 9-18 Method i 00:00: st 00 PAD PAD Disease Active Overview: Ramón n (periphera (periphera 8-22 Added Me thodi l artery l artery 00:00: automatic st disease) disease) 00 ally from request for surgery [id number] st Assessmen t & Plan: Improved symptoms. Continue medical optimizat ion. Continue cilostazo l. Follow-up in 6 months with ABIs and TBI's. 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 03-10 Me thodi emia emia 00:00: st 00 ESRD (end ESRD (end Disease Active [facility] stage stage [facility] - renal renal Medical disease) disease) Center on on dialysis dialysis Allergies, Adverse Reactions, Alerts Allergy Allergy Status Severity Reaction(s) Onset Inactive Treating Comm ents Source Name Type Date Date Clinician Codeine Propensi Active hallucina [place] ty to 02-25 tions Methodi adverse 00:00: st reaction 00 s to drug Tramadol Propensi Active Other (See [facility] ty to Comments) 1-05 [facility] - adverse 00:00: Medical reaction 00 Center s Tramadol Propensi Active Other [place] ty to 1-05 reaction( Methodi adverse 00:00: s): st reaction 00 Hallucina s to tions drug Codeine Propensi Active Other (See [facility] ty to Comments) 6-15 [facility] - adverse 00:00: Medical reaction 00 [place] s Family History Family Member Diagnosis Comments Start Date Stop Date Source Natural father Heart disease [facility] Natural [facility] Social History Social Habit Start Date Stop Date Quantity Comments Source History of Current smoker [facility] tobacco use Sex Assigned At [facility] ethodi Tobacco use and 2019-09-10 2019-09-10 Never used [facility] ethodist exposure 00:00:00 00:00:00 Alcohol intake 2019-09-10 2019-09-10 Current [facility] thodist 00:00:00 00:00:00 non-drinker of alcohol (finding) Tobacco Comment 2017-02-25 2017-02-25 socially [facility] ethodist 00:00:00 00:00:00 Smoking Status Start Date Stop Date Source Former smoker 2019-09-10 00:00:00 2019-09-10 00:00:00 [facility] Sabianist Medications Ordered Filled Start Stop Current Ordering Indication Dosage Frequency Signature Comments Components Source Medication Medication Date Date Medication? Clinician (SIG) Name Name aspirin Yes 81mg QD Take 81 mg [place] (ECOTRIN) 01-03 by mouth Method i 81 MG 11:23: daily. st enteric 33 coated tablet latanoprost Yes 1[drp] QD Administer Bai (XALATAN) 01-03 1 drop to Metho di 0.005 % 11:23: both eyes st ophthalmic 33 nightly. solution clotrimazol 2020- Yes Dermatitis Q.5D Apply Ramsey e-betametha 01-03 topically Me thodi sone 00:00: 23:59 2 (two) st (Lotrisone) 00 :00 times a 1-0.05 % day. cream LORAZepam 2019- No Dementia .25mg Q6H Take 0.5 Bai (Ativan) 01-03 with tablets Methodi 0.5 MG 00:00: 23:59 behavioral (0.[address] tablet 00 :00 disturbance total) by , mouth unspecified every 6 dementia (six) type (HCC) hours as needed (combative ness) for up to 30 days. QUEtiapine 2020- No Dementia 25mg QD Take 1 [facility] (SEROqueL) 12-13- with tablet (25 Me thodi 25 MG 00:00: 23:59 behavioral mg total) st tablet 00 :00 disturbance by mouth , nightly unspecified for 30 dementia days. type (HCC) polyethylen 2019- No Constipatio 17g QD Take 17 g Ramsey e glycol 12-13 07-26 n, by mouth Method i (MIRALAX) 00:00: 23:[address] 17 gram 00 :00 constipatio 30 days. packet n type docusate 2019- No Constipatio 100mg Q.5D Take 1 [facility] sodium 12-13 07-26 n, capsule Methodi (Colace) 00:00: 23:59 unspecified ([address] 100 MG 00 :00 constipatio total) by capsule n type mouth 2 (two) times a day for 30 days. levothyroxi Yes Hypothyroid 50ug QD Take 1 [facility] ne 4-28 ism, tablet (50 Methodi (SYNTHROID) 00:00: unspecified mcg total) st 50 mcg 00 type by mouth tablet daily. pentoxifyll 2020-0 Yes PAD TAKE 1 [place] in[place] 4-28 (peripheral TABLET BY Met patel (TRENTal) 00:00: artery MOUTH st 400 mg CR 00 disease) TWICE A tablet ([facility]) DAY blood sugar 2019-0 Yes Type 2 [facility] diabetes test strip Methodi strips 00:00: mellitus two times st (glucose 00 with daily for blood) hyperglycem blood strip test ia, with sugar strips long-term current use of insulin ([facility]) pentoxifyll 2019-0 2020- No PAD TAKE 1 Hetal ston ine 4-20 04-28 (peripheral TABLET BY Me oliver (TRENTal) 00:00: 00:[address] 400 mg CR 00 :00 disease) TWICE A tablet ([facility]) DAY amLODIPine 2019-0 Yes 5mg QD Take [address] (NORVASC) 5 4-15 by mouth Luke s - MG tablet 17:33: daily . Medic al [address] [place] [address] aspirin 81 2019-0 Yes 81mg QD Take [address] MG EC 4-15 by mouth [facility] - tablet 17:33: daily. Medical [address] [place] [address] atorvastati 2019-0 Yes 20mg QD Take [address] n (LIPITOR) 4-15 by mouth Luke s - 20 MG 17:33: daily. Medical tablet 00 [place] carvediloL Yes hypertensio 12.5mg Take 12.[address] (COREG) 4-15 n mg by [facility] - 12.5 MG 17:33: mouth 2 Medical tablet 00 (two) Center times daily with breakfast and dinner Hold foe SBP < 110 or HR < 60 . docusate 2019-0 Yes constipatio 100mg Q.5D Take [address] sodium 4-15 n mg by [facility] - (COLACE) 17:33: mouth 2 Medica l 100 MG 00 (two) Center capsule times daily. polyethylen 2019-0 Yes constipatio 17g Take [address] e glycol 4-15 n by mouth [facility] - (GLYCOLAX) 17:33: every 3 Medi daniel 17 gram 00 (three) Center packet days. hydrALAZINE 2019-0 Yes hypertensio 25mg Q.[id number] Take [address] (APRESOLINE 4-15 n [id number] by mouth 3 [facility] - ) 25 MG 17:33: 3D (three) Medical tablet 00 times Center daily. levothyroxi 2020-0 Yes 50ug Take [address] ne 4-15 mcg by [facility]ukes - (SYNTHROID, 17:33: mouth Medic al LEVOTHROID) 00 Every Center 50 MCG morning on tablet an empty stomach. insulin 2020-0 Yes type [address] aspart 4-15 diabetes subcutaneo Richelle es - U-100 17:33: mellitus usly 3 Medica l (NOVOLOG) 00 (three) Center 100 unit/mL times (3 mL) InPn daily before meals. PENTOXIFYLL 2020-0 Yes peripheral 400mg Q.5D Take [address] INE ORAL 4-15 vascular mg by [facility] - 17:33: disease mouth 2 Medical 00 (two) Center times daily. pantoprazol 2020-0 Yes 40mg QD Take [address] e 4-15 by mouth [facility] - (PROTONIX) 17:33: daily. Medic al 40 MG 00 Center tablet acetaminoph 2020-0 Yes 650mg Take [address] en 4-15 mg by [facility] - (TYLENOL) 17:33: mouth Medical 325 MG 00 every 4 Center tablet (four) hours as needed for Pain. insulin 2019-0 2020- No 5U Q.5D Inject 5 [facility] S t glargine 4-15 04-15 Units [facility]ukes - (LANTUS) 15:48: 00:00 subcutaneo Me dical 100 unit/mL 57 :00 usly 2 Center injection (two) times daily Use as directed . hydrocortis 2019-0 2020- No hemorrhoids 25mg Q.5D Place [address] one 4-04 04-15 mg [facility] - (ANUSOL-HC) 00:00: 23:59 rectally 2 Medical 25 mg 00 :00 (two) Center suppository times daily. epoetin 2019-0 2020- No 3000U Q.[id number] Inject 1 Bai misa-epbx 09-13-26 [id number] mL (3,000 Methodi (RETACRIT) 00:00: 23:[address] 3,000 00 :00 total) unit/mL under the solution skin 3 injection (three) times a week for 30 days. amLODIPine 2019-0 2020- No 5mg QD Take 1 [place] (NORVASC) 5 09-12-25 tablet (5 Me thodi mg tablet 00:00: 23:59 mg total) st 00 :00 by mouth daily for 30 days. acetaminoph 2019- No 650mg Q4H Take 2 [place] en 09-11-24 tablets Methodi (TYLENOL) 00:00: 23:59 ([address] 325 MG 00 :00 total) by tablet mouth every 4 (four) hours as needed for mild pain, moderate pain or fever for up to 30 days. heparin 2019- No 5000U Q.5D Inject 1 [place] sodium,porc 09-11-24 mL (5,000 Me thodi ine 00:00: 23:[address] (HEParin, 00 :00 total) porcine,) under the 5,000 skin every unit/mL 12 injection (twelve) hours for 30 days. insulin 2019- No 0U Q.[id number] Inject 0-5 Bai lispro 09-11-24 [id number] Units Metho di (HumaLOG) 00:00: 23:[address] 100 unit/mL 00 :00 skin 3 injection (three) times a day with meals for 30 days. LORazepam 2019- No .5mg Take 0.[address] (ATIVAN) 318 04-10 mg by [facility] - 0.5 MG 00:00: 00:00 mouth Medical tablet 00 :00 every 8 Center (eight) hours as needed for Anxiety. lancets 2019- Yes Type 2 Use one [place] misc 08-28 diabetes lancet two Metho di 00:00: mellitus times a st 00 with day for hyperglycem glucose ia, with long-term current use of insulin ([facility]) blood sugar 2020- No Type 2 Use one [facility] diagnostic 3- 03-25 diabetes test strip Methodi strips 00:00: 00:00 mellitus two times s t (glucose 00 :00 with daily for blood) hyperglycem glucose strip test ia, with strips long-term current use of insulin ([facility]) levoFLOXaci 2019-0 2020- No Acute Take 2 tab Richardson n 3- 03-25 cystitis PO daily Method i (LEVAQUIN) 00:00: 00:[address] 250 MG 00 :00 hematuria day and tablet then 1 tab PO every 48 hours for 10 days total duration blood-gluco 2019- Yes Type 2 Use to Jermoe bauer se meter 08-26 diabetes check Method i misc 00:00: mellitus blood st 00 with glucose hyperglycem twice ia, with daily long-term current use of insulin (HCC) blood-gluco 2020- No Type 2 Use as [place] se meter 08-26 diabetes instructed Methodi kit 00:00: 23:[address] 00 :00 with hyperglycem ia, with long-term current use of insulin (HCC) benzonatate 2019- No Cough 100mg Q.[id number] Take 1 Bai (TESSALON 08-26 [id number] capsule Methodi PERLES) 100 00:00: 00:00 3D ([address] MG capsule 00 :00 total) by mouth 3 (three) times a day as needed for cough for up to 10 days. bromphenira 2019- No Cough 5mL Q.[id number] Take 5 mL Bai mine-pseudo 08-26 [id number] by mouth 3 Methodi eph-DM 00:00: 00:00 3D (three) st 230-10 00 :00 times a mg/5 mL day as syrup needed for cough for up to 10 days. hydrALAZINE 2019- No 25mg Q.5D Take 25 mg Bai (APRESOLINE 08-20 by mouth 2 M ethodi ) 25 MG 14:54: 00:00 (two) st tablet 58 :00 times a day. carvediloL 2019- No 12.5mg Q.5D Take 1 Jerome bauer (COREG) 08-20 tablet Methodi 12.5 MG 00:00: 23:59 (12.[address] tablet 00 :00 total) by mouth 2 (two) times a day for 30 days. hydrALAZINE 2019- No 25mg Q.[id number] Take 1 Richardson (APRESOLINE 08-20 [id number] tablet (25 Methodi ) 25 MG 00:00: 23:59 3D mg total) st tablet 00 :00 by mouth every 8 (eight) hours for 30 days. insulin 2019-2019- No 5U Q.5D Inject 5 [place] GLARGINE 08-20-02 Units Methodi (LANTUS) 00:00: 23:[address] 100 unit/mL 00 :00 skin 2 injection (two) (vial) times a day for 30 days. atorvastati 2019- No 20mg QD Take 1 Hetal symone n (LIPITOR) 08-20- tablet (20 M ethodi 20 MG 00:00: 23:59 mg total) st tablet 00 :00 by mouth nightly for 30 days. Default OP ins pantoprazol 2019- No 40mg QD Take 1 Hetal maryn e 08-20- tablet (40 Methodi (PROTONIX) 00:00: 23:59 mg total) s t 40 MG EC 00 :00 by mouth tablet daily for 30 days. insulin 2019- No 25U Q.5D Inject 25 [place] detemir 2-19 02-19 Units Methodi (LEVEMIR 10:16: 00:[address] FLEXPEN 51 :00 skin 2 SUBQ) (two) times a day. levothyroxi 2019- No Hypothyroid TAKE 1 [facility] 1- 04-28 ism, TABLET BY Methodi (SYNTHROID) 00:00: 00:[address] 50 mcg 00 :00 type EVERY DAY tablet glimepiride 2018-06- No Type 2 [facility]KE [facility] ([facility] 4 06-22 03-03 diabetes TABLET BY Methodi MG tablet 00:00: 00:[address] 00 :00 with EVERY DAY hyperglycem BEFORE ia, with BREAKFAST long-term current use of insulin (HCC) levothyroxi 2018-06- No Hypothyroid TAKE 1 Ramsey ne 0-17 01-12 ism, TABLET BY Methodi (SYNTHROID) 00:00: 00:[address] 50 mcg 00 :00 type EVERY DAY tablet carvedilol 2018-06- No Essential TAKE 1 Ramsey (COREG) 0-04 03-03 hypertensio TABLET BY Methodi 6.25 MG 00:00: 00:[address] tablet 00 :00 TWICE A DAY LEVEMIR 2019- No INJECT SUB Hetal ston FLEXTOUCH 03-02-03 35 UNITS Metho di U-100 00:00: 00:[address] INSULN 100 00 :00 HOURS unit/mL (3 mL) insulin pen levothyroxi 2018- No Hypothyroid TAKE 1 Ramsey ne 01-06 1017 ism, TABLET BY Methodi (SYNTHROID, 00:00: 00:[address] LEVOXYL) 50 00 :00 type EVERY DAY mcg tablet lancets 2019- No Type 2 Use one [place] misc 12-28 diabetes lancet two Meth nery 00:00: 00:[address] 00 :00 with day for hyperglycem glucose ia, with long-term current use of insulin ([facility]) blood-gluco 2019- No Type 2 Use as H o[place]one se meter 12-28 diabetes instructed Methodi kit 00:00: 00:[address] 00 :00 with hyperglycem ia, with long-term current use of insulin ([facility]) blood sugar 2019- No Type 2 Use one [facility] diagnostic 12-28 diabetes test strip Methodi strips 00:00: 00:00 mellitus two times s t (FREESTYLE 00 :00 with a day for LITE hyperglycem glucose STRIPS) ia, with strip test long-term strips current use of insulin ([facility]) glimepiride 2018- No Type 2 TAKE 1 H seferino (AMARYL) 4 10-07 diabetes TABLET BY Methodi MG tablet 00:00: 00:[address] 00 :00 with EVERY DAY hyperglycem BEFORE ia, with BREAKFAST long-term current use of insulin ([facility]) lisinopril 2019- No Essential 40mg QD Take 1 [facility] (PRINIVIL,Z 09-13 hypertensio tablet (40 Methodi ESTRIL) 40 00:00: 00:00 n mg total) s t mg tablet 00 :00 by mouth daily. hydroCHLORO 2019- No Essential 12.5mg QD Take 1 [facility] thiazide 09-13 hypertensio tablet M ethodi (HYDRODIURI 00:00: 00:00 n (12.5 mg s t L) 12.5 MG 00 :00 total) by tablet mouth daily. miscellaneo 2017-06 Yes Essential Use to [facility] 08-01 hypertensio check M ethodi supply 00:00: n blood st (BLOOD 00 pressure PRESSURE twice CUFF) misc daily pentoxifyll 2017-06- PAD 1 tablet [place] ine 06-26 (peripheral 2x a day Met amanda (TRENTal) 00:00: 00:[address] 400 mg CR 00 :00 disease) days tablet (HCC) empaglifloz 2019- No Type 2 25mg QD Take 1 [place] in 01-15 diabetes tablet (25 Meth nery (JARDIANCE) 00:00: 00:00 mellitus mg total) st 25 mg 00 :00 with by mouth tablet hyperglycem daily. ia, with long-term current use of insulin (HCC) metFORMIN 2019- TAKE 1 [place] (GLUCOPHAGE 12-29 TABLET Metho di ) 1,000 mg 00:00: 00:00 (1,000 MG s t tablet 00 :00 TOTAL) BY MOUTH 2 (TWO) TIMES A DAY WITH MEALS. Immunizations Ordered Immunization Filled Immunization Date Status Commen ts Source Name Name Pneumococcal 2018-05-31 Completed Bai Conjugate 13-Valent 00:00:00 Metho dist FLUZONE HIGH-DOSE PF 2018-03-01 Completed [place] 00:00:00 Sabianist FLUZONE HIGH-DOSE PF 2017-03-10 Completed [place] 00:00:00 Sabianist Vital Signs Vital Name Observation Time Observation Value Comments Source Heart rate 2019-10-03 16:21:00 66 /min [facility] Respiratory rate 2019-10-03 16:21:00 16 /min [facility] Oxygen saturation 2019-10-03 16:21:00 92 /min [facility] Arterial blood Medical Ce nter by Pulse oximetry Systolic blood 2019-10-03 14:42:00 155 mm[Hg] [facility] Diastolic blood 2019-10-03 14:42:00 68 mm[Hg] [facility] S t [facility] Body temperature 2019-10-03 14:42:00 36.83 Yoko [facility] Body weight 2019-10-03 11:15:00 41.9 kg [facility] BMI 2019-10-03 11:15:00 18.66 kg/m2 [facility] Body height 2019-09-27 09:00:00 149.9 cm per daughter [facility] Systolic blood 2019-09-12 11:44:54 171 mm[Hg] [place] pressure [facility]ian[facility] Diastolic blood 2019-09-12 11:44:54 72 mm[Hg] [place] pressure [facility]ian[facility] Heart rate 2019-09-12 11:44:54 76 /min Bai Sabianist Body temperature 2019-09-12 11:44:54 36.44 Yoko [place] [facility] Respiratory rate 2019-09-12 11:44:54 14 /min [place] [facility] Oxygen saturation 2019-09-12 11:44:54 98 /min H[place] ston in Arterial blood Sabianist by Pulse oximetry Body height 2019-08-27 14:44:00 147.3 cm [facility] Body weight 2019-08-27 14:44:00 46.72 kg [facility] BMI 2019-08-27 14:44:00 21.53 kg/m2 [facility] Amin Procedures Procedure Date / Time Performing Clinician Source Performed TRANSFUSION SERVICE REPORT 2019-10-04 17:51:54 Provider, [facility] SCAN [facility] REPORT OF PROCEDURE - 2019-10-04 12:40:51 Provider, Default [facility] ENDOSCOPY [facility] RHYTHM STRIP - SCAN 2019-10-04 12:40:36 Provider, [facility] PREPARE LEUKO-REDUCED RBC 2019-10-03 23:54:00 [facility] TRANSFUSION SERVICE REPORT 2019-10-03 17:51:47 Provider, [facility] POCT-GLUCOSE METER 2019-10-03 16:47:00 [facility] POCT-GLUCOSE METER 2019-10-03 11:32:00 [facility] POCT-GLUCOSE METER 2019-10-03 10:56:00 [facility] POCT-GLUCOSE METER 2019-10-03 08:10:00 [facility] POCT-GLUCOSE METER 2019-10-03 07:39:00 [facility] BASIC METABOLIC PANEL (7) 2019-10-03 06:01:00 Brigidat, [facility] CBC W/PLT COUNT & AUTO 2019-10-03 06:01:00 [facility] TRANSFUSE LEUKO-REDUCED 2019-10-03 01:35:51 [facility], [facility] RED BLOOD CELLS [facility] POCT-GLUCOSE METER 2019-10-02 21:13:00 [facility] TYPE AND SCREEN, AUTOMATED 2019-10-02 18:44:00 [facility] POCT-GLUCOSE METER 2019-10-02 17:19:00 [facility] BASIC METABOLIC PANEL (7) 2019-10-02 17:12:00 [facility] CBC W/PLT COUNT & AUTO 2019-10-02 17:12:00 Brigidat, [facility] POCT-GLUCOSE METER 2019-10-02 11:02:00 [facility] POCT-GLUCOSE METER 2019-10-02 07:52:00 [facility] POCT-GLUCOSE METER 2019-10-01 21:26:00 [facility] POCT-GLUCOSE METER 2019-10-01 16:30:00 [facility] POCT-GLUCOSE METER 2019-10-01 12:09:00 [facility] POCT-GLUCOSE METER 2019-10-01 08:25:00 [facility], [facility] HEMODIALYSIS INPATIENT 2019-10-01 08:14:48 Romelia Palacio [facility] POCT-GLUCOSE METER 2019-10-01 07:05:00 [facility] POCT-GLUCOSE METER 2019-09-30 20:45:00 [facility] POCT-GLUCOSE METER 2019-09-30 15:37:00 [facility] POCT-GLUCOSE METER 2019-09-30 11:50:00 [facility] POCT-GLUCOSE METER 2019-09-30 07:21:00 [facility] BASIC METABOLIC PANEL (7) 2019-09-30 04:10:00 [facility] CBC W/PLT COUNT & AUTO 2019-09-30 04:10:00 [facility] POCT-GLUCOSE METER 2019-09-29 20:06:00 [facility] HEMOGLOBIN AND HEMATOCRIT 2019-09-29 18:11:00 [facility] POCT-GLUCOSE METER 2019-09-29 16:43:00 [facility] POCT-GLUCOSE METER 2019-09-29 11:49:00 [facility] POCT-GLUCOSE METER 2019-09-29 07:59:00 [facility] POCT-GLUCOSE METER 2019-09-28 20:18:00 [facility] TRANSFUSION SERVICE REPORT 2019-09-28 17:52:[address] [facility] POCT-GLUCOSE METER 2019-09-28 16:56:00 [facility] POCT-GLUCOSE METER 2019-09-28 11:22:00 [facility] HEMODIALYSIS INPATIENT 2019-09-28 10:18:05 Romelia Palacio [facility] HEMODIALYSIS INPATIENT 2019-09-28 08:20:40 Romelia Palacio [facility] BASIC METABOLIC PANEL (7) 2019-09-28 04:10:00 Ciara Abraham [facility] HEPATIC FUNCTION PANEL 2019-09-28 04:10:[address] [facility] PROTHROMBIN TIME/INR 2019-09-28 04:10:00 [facility] & AUTO 2019-09-28 04:10:00 Ciara Abraham [facility] PREPARE LEUKO-REDUCED RBC 2019-09-27 23:54:00 Ciara Abraham [facility] POCT-GLUCOSE METER 2019-09-27 21:43:00 [facility] ECHOCARDIOGRAM REPORT - 2019-09-27 21:10:38 Provider, [facility] TRANSFUSION SERVICE REPORT 2019-09-27 17:52:23 Provider, [facility] POCT-GLUCOSE METER 2019-09-27 17:28:00 [facility] REPORT OF PROCEDURE - 2019-09-27 14:41:18 Dai Levine [facility] ENDOSCOPY [facility] SIGMOIDOSCOPY 2019-09-27 13:32:00 Dai Levine [facility] POCT-GLUCOSE METER 2019-09-27 12:29:00 [facility] W/ DOPPLER 2019-09-27 09:11:16 Ciara Abraham [facility] (CW/PW/COLOR) [facility] POCT-GLUCOSE METER 2019-09-27 08:02:00 [facility] BASIC METABOLIC PANEL (7) 2019-09-27 04:26:00 [facility] [facility] HEPATIC FUNCTION PANEL 2019-09-27 04:26:[address] [facility] PROTHROMBIN TIME/INR 2019-09-27 04:26:[address] [facility] PHOSPHORUS 2019-09-27 04:26:00 Romelia Palacio [facility] CBC W/PLT COUNT & AUTO 2019-09-27 04:26:00 Ciara Abraham [facility] DIFFERENTIAL [facility] POCT-GLUCOSE METER 2019-09-26 20:57:00 Gadicheroliva [facility] POCT-GLUCOSE METER 2019-09-26 16:58:00 [facility] 2019-09-26 11:38:00 Gadiselaeroliva, [facility] MAGNESIUM 2019-09-26 08:52:00 [facility] B SURFACE 2019-09-26 08:52:00 Richmond Mendoza [facility] L [facility] - ANTIGEN [facility] CBC W/PLT COUNT & AUTO 2019-09-26 08:52:00 Richmond Mendoza [facility] - DIFFERENTIAL [facility] POCT-GLUCOSE METER 2019-09-26 07:44:00 Candice Huertas [facility] TRANSFUSE LEUKO-REDUCED 2019-09-26 06:25:26 [facility]LOOD CELLS [facility] XR HIP 2 VIEWS LEFT 2019-09-26 04:45:00 [facility] 2019-09-26 04:09:00 [facility] IRON, TIBC, % SAT. 2019-09-26 04:09:00 [facility] B12 AND FOLATE 2019-09-26 04:09:00 [facility] BLO[facility]URE 2019-09-26 02:07:00 Jacinto [facility] BASIC METABOLIC PANEL (7) 2019-09-26 02:07:00 Ciara Abraham [facility] HEPATIC FUNCTION PANEL 2019-09-26 02:07:00 Jacinto [facility] PROTHROMBIN TIME/INR 2019-09-26 02:07:00 Jacinto [facility] ABORH, MANUAL 2019-09-26 02:07:00 Sol Gallegos [facility] CBC W/PLT COUNT & AUTO 2019-09-26 02:07:00 Jacinto [facility] HEMOGLOBIN A1C 2019-09-26 01:33:00 Abraham [facility] TYPE AND SCREEN, AUTOMATED 2019-09-26 01:33:00 Jacinto [facility] COMPREHENSIVE METABOLIC 2019-09-25 22:27:[address] [facility] PROTHROMBIN TIME/INR 2019-09-25 22:27:00 Jacinto [facility] CBC W/PLT COUNT & AUTO 2019-09-25 22:27:00 Jacinto [facility] POCT-GLUCOSE METER 2019-09-25 20:24:00 Candice Huertas [facility] XR LOWER EXTREMITY 2019-09-21 14:37:00 Oniel Panda ethodist EXTERNAL STUDY POC GLUCOSE 2019-09-12 12:02:00 Dorota Murillo POC GLUCOSE 2019-09-12 08:20:00 Dorota Murillo POC GLUCOSE 2019-09-11 21:36:00 Dorota Murillo POC GLUCOSE 2019-09-11 12:38:00 Dorota Murillo HEPATITIS B SURFACE 2019-09-11 10:57:00 Alfonso Saldaña ANTIGEN POC GLUCOSE 2019-09-11 08:36:00 Dorota Murillo HC COMPLETE BLD COUNT 2019-09-11 08:15:00 Dorota Murillo [facility] W/AUTO DIFF BASIC METABOLIC PANEL 2019-09-11 00:00:00 Dorota Murillo ESTIMATED GFR 2019-09-11 00:00:00 Dorota Murillo POC GLUCOSE 2019-09-10 22:15:00 Dorota Murillo HEMODIALYSIS 2019-09-10 18:29:44 Alfonso Saldaña Nv thodist POC GLUCOSE 2019-09-10 17:25:00 Dorota Murillo POC GLUCOSE 2019-09-10 13:03:00 Dorota Murillo POC GLUCOSE 2019-09-09 21:28:00 Dorota Murillo POC GLUCOSE 2019-09-09 18:33:00 Dorota Murillo POC GLUCOSE 2019-09-09 12:16:00 Dorota Murillo POC GLUCOSE 2019-09-09 07:00:00 Dorota Murillo POC GLUCOSE 2019-09-08 21:18:00 Dorota Murillo POC GLUCOSE 2019-09-08 17:54:00 Dorota Murillo POC GLUCOSE 2019-09-08 12:30:00 Dorota Murillo POC GLUCOSE 2019-09-08 09:06:00 Dorota Murillo CBC HEMOGRAM 2019-09-08 07:30:00 Hernandez Calabrese odist BASIC METABOLIC PANEL 2019-09-08 04:00:00 Hernandez Calabrese n [facility] PHOSPHORUS LEVEL 2019-09-08 04:00:00 Hernandez Calabrese hodist MAGNESIUM LEVEL 2019-09-08 04:00:00 Hernandez Calabrese Meth odist ESTIMATED GFR 2019-09-08 04:00:00 Alfonso Saldaña Nv thodist POC GLUCOSE 2019-09-07 22:15:00 Dorota Murillo POC GLUCOSE 2019-09-07 16:59:00 Dorota Murillo HEMODIALYSIS 2019-09-07 16:20:42 Hernandez Calabrese Meth odist POC GLUCOSE 2019-09-07 09:36:00 Dorota Murillo [place] > 1 HOUR 2019-09-07 09:16:51 Rahul Edgar [place] AN ELECTIVE 2019-09-07 08:41:10 Matias Douglas ethodist ENDOTRACHEAL AIRWAY PINNING, HIP, PERCUTANEOUS 2019-09-07 07:57:00 Oniel Panad [facility] POC PANEL 4 2019-09-07 06:48:00 Dorota Murillo POC GLUCOSE 2019-09-07 05:21:00 Dorota Murillo HC COMPLETE BLD COUNT 2019-09-07 04:30:00 Dorota Murillo W/AUTO DIFF BASIC METABOLIC PANEL 2019-09-07 04:30:00 Dorota Murillo FERRITIN LEVEL 2019-09-07 04:30:00 Hernandez Calabrese TOTAL IRON BINDING 2019-09-07 04:30:00 Hernandez Calabrese ethodist CAPACITY PARTIAL THROMBOPLASTIN 2019-09-07 04:30:00 [place] [facility] TIME (PTT) PROTHROMBIN TIME WITH INR 2019-09-07 04:30:00 [place] ESTIMATED GFR 2019-09-07 04:30:00 Alfonso Saldaña Nv thodist POC GLUCOSE 2019-09-06 21:48:00 Dorota Murillo POC GLUCOSE 2019-09-06 17:11:00 Dorota Murillo POC GLUCOSE 2019-09-06 12:32:00 Dorota Murillo POC GLUCOSE 2019-09-06 10:46:00 Dorota Murillo HEMODIALYSIS 2019-09-06 06:22:46 Shaun Latif Nv thodist HC COMPLETE BLD COUNT 2019-09-06 06:00:00 Dorota Murillo W/AUTO DIFF PARTIAL THROMBOPLASTIN 2019-09-06 06:00:00 [place] [facility] TIME (PTT) PROTHROMBIN TIME WITH INR 2019-09-06 06:00:00 [place] BASIC METABOLIC PANEL 2019-09-06 04:00:00 Dorota Murillo MAGNESIUM LEVEL 2019-09-06 04:00:00 Hernandez Calabrese odist PHOSPHORUS LEVEL 2019-09-06 04:00:00 Hernandez Calabrese Bai Met hodist ALBUMIN LEVEL 2019-09-06 04:00:00 Hernandez Calabrese Meth odist ESTIMATED GFR 2019-09-06 04:00:00 Dorota Murillo POC GLUCOSE 2019-09-05 23:55:00 Dorota Murillo ECG 12-LEAD 2019-09-05 18:15:09 Emily Ulloa odcleve POC GLUCOSE 2019-09-05 17:20:00 Dorota Murillo XR HIP 2-3 VIEWS LEFT 2019-09-05 14:13:12 Dorota Murillo XR FEMUR 2 VW LEFT 2019-09-05 14:13:00 Abdirahman Bridges ethodist XR PELVIS 1 OR 2 VW 2019-09-05 14:12:43 Abdirahman Bridges POC GLUCOSE 2019-09-05 12:30:00 Dorota Murillo POC GLUCOSE 2019-09-05 07:23:00 Dorota Murillo HC COMPLETE BLD COUNT 2019-09-05 06:10:00 Dorota Murillo W/AUTO DIFF PROTHROMBIN TIME WITH INR 2019-09-05 06:10:00 Dorota Murillo PARTIAL THROMBOPLASTIN 2019-09-05 06:10:00 Dorota Murillo TIME (PTT) TYPE AND SCREEN 2019-09-05 06:10:00 Dorota Murillo BASIC METABOLIC PANEL 2019-09-05 04:00:00 Dorota Murillo ESTIMATED GFR 2019-09-05 04:00:00 Dorota Murillo POC GLUCOSE 2019-09-04 21:57:00 Dorota Murillo XR CHEST 2 VW 2019-08-27 16:54:57 Srinivasan Estrada URINE CULTURE 2019-08-27 16:10:00 Srinivasan Estrada URINALYSIS, COMPLETE, WITH 2019-08-27 16:10:00 Srinivasan Estrada REFLEX TO CULTURE POC GLUCOSE 2019-08-21 12:25:00 Dorota Murillo POC GLUCOSE 2019-08-21 08:21:00 Dorota Murillo BASIC METABOLIC PANEL 2019-08-21 02:00:00 Alexander Escudero [facility] CBC WITH PLATELET AND 2019-08-21 02:00:00 Alexander Escudero [facility] DIFFERENTIAL MAGNESIUM LEVEL 2019-08-21 02:00:00 Alexander Escudero Meth odist ESTIMATED GFR 2019-08-21 02:00:00 Alexander Escudero Meth odist PHOSPHORUS LEVEL 2019-08-21 02:00:00 Alexander Escudero Met hodist MANUAL DIFFERENTIAL 2019-08-21 02:00:00 Alexander Escudero [facility] HEMODIALYSIS 2019-08-20 22:22:49 Hernandez Calabrese Meth odist POC GLUCOSE 2019-08-20 21:18:00 Dorota Murilloist POC GLUCOSE 2019-08-20 18:23:00 Dorota Murillo [facility] POC GLUCOSE 2019-08-20 17:13:00 Dorota Murillo [facility] POC GLUCOSE 2019-08-20 11:08:00 Dorota Murilloist POC GLUCOSE 2019-08-20 07:58:00 Dorota Murillo BASIC METABOLIC PANEL 2019-08-20 05:05:00 Alexander Escudero [facility] CBC WITH PLATELET AND 2019-08-20 05:05:00 Alexander Escudero [facility] DIFFERENTIAL MAGNESIUM LEVEL 2019-08-20 05:05:00 Alexander Escudero Meth odist ESTIMATED GFR 2019-08-20 05:05:00 Alexander Escudero Meth odist MANUAL DIFFERENTIAL 2019-08-20 05:05:00 Alexander Escudero [facility] POC GLUCOSE 2019-08-19 21:15:00 Dorota Murillo [facility] POC GLUCOSE 2019-08-19 17:14:00 Dorota Murillo [facility] POC GLUCOSE 2019-08-19 11:55:00 Dorota Murillo ECG 12-LEAD 2019-08-19 09:26:38 Emily Ulloa Meth odist POC GLUCOSE 2019-08-19 08:53:00 Dorota Murillo ESTIMATED GFR 2019-08-19 04:00:00 Alfonso Saldaña Nv thodist BASIC METABOLIC PANEL 2019-08-19 04:00:00 Alfonso Saldaña [facility] POC GLUCOSE 2019-08-18 17:56:00 Dorota Murillo POC GLUCOSE 2019-08-18 13:01:00 Dorota Murillo HEMODIALYSIS 2019-08-18 08:45:54 Alfonso Saldaña Nv thodist POC GLUCOSE 2019-08-18 07:36:00 Dorota Murilloist POC GLUCOSE 2019-08-17 21:00:00 Dorota Murillo POC GLUCOSE 2019-08-17 18:13:00 Dorota Murillo POC GLUCOSE 2019-08-17 12:44:00 Dorota Murillo CV STRESS TEST NUCLEAR 2019-08-17 08:37:36 Emily Ulloa CARDIO NM MYOCARDIAL PERFUSION 2019-08-17 08:37:36 Emily Ulloa [facility] STRESS REST 1 DAY POC GLUCOSE 2019-08-17 07:53:00 Dorota Murillo BASIC METABOLIC PANEL 2019-08-17 03:40:00 Alfonso Saldaña PHOSPHORUS LEVEL 2019-08-17 03:40:00 Alfonso Saldaña ethodist ESTIMATED GFR 2019-08-17 03:40:00 Alfonso Saldaña Nv thodist POC GLUCOSE 2019-08-16 21:56:00 Dorota Murillo POC GLUCOSE 2019-08-16 16:07:00 Dorota Murilloist POC GLUCOSE 2019-08-16 11:38:[address] HEAD WO CONTRAST 2019-08-16 11:21:25 Emily Ulloa BASIC METABOLIC PANEL 2019-08-16 10:29:00 Alfonso Saldaña ESTIMATED GFR 2019-08-16 10:29:00 Alfonso Saldaña Nv thodist POC GLUCOSE 2019-08-16 07:41:00 Dorota Murillo POC GLUCOSE 2019-08-15 18:03:00 Dorota Murillo POC GLUCOSE 2019-08-15 12:07:00 Dorota Murillo HEMODIALYSIS 2019-08-15 12:04:10 Gorge Sheaprd odist POC GLUCOSE 2019-08-15 08:29:00 Dorota Murillo HC COMPLETE BLD COUNT 2019-08-15 08:15:00 Gorge Shepard W/AUTO DIFF BASIC METABOLIC PANEL 2019-08-15 08:15:00 Gorge Shepard MAGNESIUM LEVEL 2019-08-15 08:15:00 Gorge Shepard Meth odist PHOSPHORUS LEVEL 2019-08-15 08:15:00 Gorge Shepard ESTIMATED GFR 2019-08-15 08:15:00 Dorota Murillo POC GLUCOSE 2019-08-14 21:45:00 Dorota Murillo POC GLUCOSE 2019-08-14 16:20:00 Dorota Murillo POC GLUCOSE 2019-08-14 11:11:00 Dorota Murillo HEPATITIS C ANTIBODY 2019-08-14 10:05:00 Gorge Shepard HEPATITIS B SURFACE 2019-08-14 10:05:00 Gorge Shepard ANTIGEN HEPATITIS B SURFACE 2019-08-14 10:05:00 Gorge Shepard ANTIBODY HEPATITIS B CORE ANTIBODY 2019-08-14 10:05:00 Gorge Shepard TOTAL HEMODIALYSIS 2019-08-14 09:00:19 Gorge Shepard odist POC GLUCOSE 2019-08-14 07:36:00 Dorota Murillo HC COMPLETE BLD COUNT 2019-08-14 05:30:00 Ngitit, Kiara Amin W/AUTO DIFF [place] BASIC METABOLIC PANEL 2019-08-14 04:00:00 Kiara Howardon ESTIMATED GFR 2019-08-14 04:00:00 Kiara Howard odist [place] POC GLUCOSE 2019-08-13 20:06:00 Dorota Murillo IR TUNNELED DIALYSIS 2019-08-13 18:37:51 Gorge Shepard CATHETER PLACEMENT HEPATITIS B SURFACE 2019-08-13 17:28:00 Gorge Shepard ANTIGEN POC GLUCOSE 2019-08-13 17:15:00 Dorota Murillo POC GLUCOSE 2019-08-13 11:54:00 Dorota Murillo HEMODIALYSIS 2019-08-13 11:03:59 Gorge Shepard Meth odist POC GLUCOSE 2019-08-13 07:28:00 Dorota Murillo HC COMPLETE BLD COUNT 2019-08-13 04:50:00 Ngitit, Kiara Amin W/AUTO DIFF [place] IONIZED CALCIUM 2019-08-13 04:00:00 Ngitit, Kiara Bai Meth odist [place] BASIC METABOLIC PANEL 2019-08-13 04:00:00 Ngitit, Kiara Bauerist [place] ESTIMATED GFR 2019-08-13 04:00:00 Ngitit, Kiara Bai Meth odist [place] POC GLUCOSE 2019-08-12 20:33:00 Dorota Murillo POTASSIUM LEVEL 2019-08-12 19:00:00 Richardson Segovia Yuni Adrianna POC GLUCOSE 2019-08-12 18:25:00 Dorota Murillo POC GLUCOSE 2019-08-12 16:18:00 Dorota Murillo POC GLUCOSE 2019-08-12 11:43:00 Dorota Murillo XR CHEST 1 VW PORTABLE 2019-08-12 09:16:41 Ngitit, Kiara [place] on [facility] [place] POC GLUCOSE 2019-08-12 06:59:00 Dorota Murillo CBC WITH PLATELET AND 2019-08-12 05:00:00 Ngitit, Kiara Bauerist DIFFERENTIAL [place] BASIC METABOLIC PANEL 2019-08-12 05:00:00 Ngitit, Kiara Bauerist [place] MAGNESIUM LEVEL 2019-08-12 05:00:00 Ngitit, Kiara Hillman odist [place] PHOSPHORUS LEVEL 2019-08-12 05:00:00 Ngitit, Kiara Bai Met hodist [place] IONIZED CALCIUM 2019-08-12 05:00:00 Ngitit, Kiara Richardson Hillman odcleve [place] B NATRIURETIC PEPTIDE 2019-08-12 05:00:00 Anita Kiara Ramón n Sabian[facility] [place] ESTIMATED GFR 2019-08-12 05:00:00 Kiara Howard MANUAL DIFFERENTIAL 2019-08-12 05:00:00 Anita Kiara Richardson Bauercleve Paytonmoniksissy POC GLUCOSE 2019-08-11 20:34:00 Dorota Murillo POC GLUCOSE 2019-08-11 18:06:00 Dorota Murillo HEMOGLOBIN & HEMATOCRIT 2019-08-11 16:55:00 Tavia Segoviaandra Adrianna TRANSFUSE RED BLOOD CELLS 2019-08-11 13:35:12 Dorota Murillo POC GLUCOSE 2019-08-11 12:24:00 Dorota Murillo TRANSFUSE RED BLOOD CELLS 2019-08-11 11:13:19 Dorota Murillo OCCULT BLOOD, STOOL 2019-08-11 08:17:00 Dorota Murillo POC GLUCOSE 2019-08-11 08:02:00 Dorota Murlilo HEMOGLOBIN & HEMATOCRIT 2019-08-11 07:28:00 Indigo Piper TYPE AND SCREEN 2019-08-11 06:24:00 Indigo Piper Nv thodist PREPARE RBC 2019-08-11 06:24:00 Dorota Murillo POC GLUCOSE 2019-08-11 06:04:00 Dorota Murillo POC GLUCOSE 2019-08-11 04:57:00 Doorta Murillo HC COMPLETE BLD COUNT 2019-08-11 04:35:00 Indigo Piper W/AUTO DIFF SMEAR REVIEW 2019-08-11 04:35:00 Indigo Piper Nv thodist BASIC METABOLIC PANEL 2019-08-11 04:11:00 Indigo Piper ESTIMATED GFR 2019-08-11 04:11:00 Indigo Piper Me thodist POC GLUCOSE 2019-08-11 00:25:00 Dorota Muirllo POC GLUCOSE 2019-08-10 20:52:00 Dorota Murillo POC GLUCOSE 2019-08-10 16:59:00 Dorota Murillo POC GLUCOSE 2019-08-10 12:19:00 Dorota Murillo POC GLUCOSE 2019-08-10 11:00:00 Dorota Murillo POC GLUCOSE 2019-08-10 08:31:00 Dorota Murillo POC GLUCOSE 2019-08-10 07:21:00 Dorota Murillo HC COMPLETE BLD COUNT 2019-08-10 05:23:00 Dorota Murillo W/AUTO DIFF BASIC METABOLIC PANEL 2019-08-10 05:23:00 Dorota Murillo ESTIMATED GFR 2019-08-10 05:23:00 Dorota Murillo POC GLUCOSE 2019-08-10 04:01:00 Dorota Murillo POC GLUCOSE 2019-08-10 00:27:00 Dorota Murillo POC GLUCOSE 2019-08-09 21:24:00 Dorota Murillo US RENAL DOPPLER 2019-08-09 21:00:00 Gorge Shepard Met hodist POC GLUCOSE 2019-08-09 16:35:00 Dorota Murillo POC GLUCOSE 2019-08-09 12:39:00 Dorota Murillo URINALYSIS, AUTOMATED WITH 2019-08-09 11:49:00 Gorge Shepard MICROSCOPY BODY FLUID CONSULT 2019-08-09 11:49:00 Dorota Murillo on [facility] C4 COMPLEMENT COMPONENT 2019-08-09 11:45:00 Gorge Shepard DOUBLE-STRANDED DNA 2019-08-09 11:45:00 Gorge Shepard (DSDNA) ANTIBODIES, CRITHIDIA BARNETT ANTIBODY 2019-08-09 11:45:00 Gorge Shepard Meth odist TORITO 2019-08-09 11:45:00 Dorota Murillo GLOMERULAR BASEMENT 2019-08-09 11:45:00 Dorota Murillo MEMBRANE AB IGG (IFA) TORITO TITER 2019-08-09 11:45:00 Dorota Murillo XR CHEST 1 VW PORTABLE 2019-08-09 09:58:30 NgitiKiara franklin on [facility] [place] POC GLUCOSE 2019-08-09 08:09:00 Dorota Murillo HC COMPLETE BLD COUNT 2019-08-09 05:20:00 Dorota Murillo W/AUTO DIFF D-DIMER 2019-08-09 05:20:00 Mu Teague Meth odcleve VENOUS BLOOD GAS 2019-08-09 05:20:00 Gorge Shepard Met hodcleve B NATRIURETIC PEPTIDE 2019-08-09 05:20:00 Dorota Murillo POC GLUCOSE 2019-08-09 04:54:00 Dorota Murillo BASIC METABOLIC PANEL 2019-08-09 04:00:00 Dorota Murillo FERRITIN LEVEL 2019-08-09 04:00:00 Gorge Shepard TOTAL IRON BINDING 2019-08-09 04:00:00 Gorge Shepard M ethodist CAPACITY CREATINE KINASE, TOTAL 2019-08-09 04:00:00 Gorge Shepard on [facility] (CPK) ESTIMATED GFR 2019-08-09 04:00:00 Dorota Murillo POC GLUCOSE 2019-08-09 02:22:00 Dorota Murillo LACTIC ACID LEVEL 2019-08-09 00:17:00 Gorge Shepard Me thodist KAPPA LAMBDA FREE LIGHT 2019-08-09 00:17:00 Gorge Shepard CHAIN WITH RATIO SERUM ELECTROPHORESIS 2019-08-09 00:17:00 Gorge Shepard n [facility] US CAROTID DUPLEX 2019-08-08 21:20:00 Dorota Murillo BILATERAL POC GLUCOSE 2019-08-08 21:13:00 Dorota Murillo POC GLUCOSE 2019-08-08 18:26:00 Dorota Murillo URINE CULTURE 2019-08-08 16:57:00 Dorota Murillo US RENAL 2019-08-08 15:35:00 Gorge Shepard Meth odcleve URINALYSIS SCREEN AND 2019-08-08 13:43:00 Gorge Shepard MICROSCOPY, WITH REFLEX TO CULTURE UREA NITROGEN, URINE, 2019-08-08 13:43:00 Gorge Shepard RANDOM SODIUM LEVEL, URINE, 2019-08-08 13:43:00 Dorota Murillo RANDOM CREATININE LEVEL, URINE, 2019-08-08 13:43:00 Dorota Murillo RANDOM PROTEIN, URINE, RANDOM 2019-08-08 13:43:00 Dorota Murillo POC GLUCOSE 2019-08-08 12:32:00 Dorota Murillo POC GLUCOSE 2019-08-08 07:33:00 Dorota Murillo POC GLUCOSE 2019-08-08 05:58:00 Dorota Murillo POC GLUCOSE 2019-08-08 04:18:00 Dorota Murillo TROPONIN 2019-08-08 04:04:00 Dorota Murillo COMPREHENSIVE METABOLIC 2019-08-08 02:24:00 Dorota Murillo PANEL ESTIMATED GFR 2019-08-08 02:24:00 Dorota Murillo HC COMPLETE BLD COUNT 2019-08-08 01:40:00 Dorota Murillo W/AUTO DIFF BASIC METABOLIC PANEL 2019-08-08 01:40:00 Dorota Murillo HEMOGLOBIN A1C 2019-08-08 01:40:00 Dorota Murillo THYROID STIMULATING 2019-08-08 01:40:00 Dorota Murillo HORMONE T4, FREE 2019-08-08 01:40:00 Dorota Murillo LIPID PANEL 2019-08-08 01:40:00 Dorota Murillo ESTIMATED GFR 2019-08-08 01:40:00 Dorota Murillo TROPONIN 2019-08-08 00:09:00 Dorota Murillo XR CHEST 1 VW PORTABLE 2019-08-07 21:08:29 Emily Ulloa on [facility] ECG 12-LEAD 2019-08-07 20:50:43 Emily Ulloa Meth odist B NATRIURETIC PEPTIDE 2019-08-07 20:45:00 Emily Ulloa [facility] TROPONIN 2019-08-07 20:45:00 Emily Ulloa COMPREHENSIVE METABOLIC 2019-08-07 20:45:00 Emily Ulloa [facility] PANEL HC COMPLETE BLD COUNT 2019-08-07 20:45:00 Emily Ulloa [facility] W/AUTO DIFF ESTIMATED GFR 2019-08-07 20:45:00 Emily Ulloa [place] CRITICAL CARE, E/M 2019-08-07 20:33:40 Gabino Feliz [facility] 30-74 MINUTES Andre HC COMPLETE BLD COUNT 2019-08-07 18:42:00 Ed Verma W/AUTO DIFF PROTHROMBIN TIME WITH INR 2019-08-07 18:42:00 Ed Verma PARTIAL THROMBOPLASTIN 2019-08-07 18:42:00 Ed Verma TIME (PTT) COMPREHENSIVE METABOLIC 2019-08-07 18:42:00 Ed Verma PANEL AMYLASE LEVEL 2019-08-07 18:42:00 Ed Verma ethodist LIPASE LEVEL 2019-08-07 18:42:00 Ed Verma ethodist ESTIMATED GFR 2019-08-07 18:42:00 Ed Verma ethodi TTE COMPLETE, WO CONTRAST, 2019-08-07 00:45:00 Doroat Murillo W DOPPLER ([id number]) PV PHYSIOLOGIC ARTERIAL 2019-04-11 10:30:00 Nando Vides LOWER EXTREMITY COMPLETE [place] Plan of Care Planned Activity Planned Date Details Comments Source Future Scheduled 2020-01-19 DIABETIC RETINAL EYE [facility] [facility] Test 00:00:00 EXAM [code = DIABETIC RETINAL EYE EXAM] Future Scheduled 2020-01-19 INFLUENZA VACCINE [place] [facility] 00:00:00 [code = INFLUENZA VACCINE] Future Scheduled 2019-09-14 DIABETIC FOOT EXAM [place] [facility] Test 00:00:00 [code = DIABETIC FOOT EXAM] Future Scheduled 2019-09-14 URINE MICROALBUMIN [place] [facility] Test 00:00:00 [code = URINE MICROALBUMIN] Future Scheduled 2019-05-31 65+ PNEUMOCOCCAL [place] [facility] Test 00:00:00 VACCINE (2 of 2 - PPSV23) [code = 65+ PNEUMOCOCCAL VACCINE (2 of 2 - PPSV23)] Future Scheduled 1992-01-12 SHINGLES VACCINES (#1) [facility] [facility] Test 00:00:00 [code = SHINGLES VACCINES (#1)] Encounters Start End Encounter Admission Attending Care Care Encounter Source Date/Time Date/Time Type Type Clinicians Facility Department ID 2020-01-04 2020-01-04 Outpatient ESTRADA, [facility] [id number] [place] 00:00:00 00:00:00 SRINIVASAN [address] 2019-12-14 2019-12-14 Outpatient ESTRADA, [facility] [id number] [place] 00:00:00 00:00:00 SRINIVASAN [address] 2019-11-14 2019-11-14 Outpatient ESTRADA, [facility] [id number] [place] 00:00:00 00:00:00 SRINIVASAN [address] 2019-10-24 2019-10-24 Outpatient ESTRADA, [facility] [id number] [place] 00:00:00 00:00:00 SRINIVASAN [address] 2019-10-02 2019-10-02 Outpatient ONIEL PANDA [facility] [id number] [place] 00:00:00 00:00:[address] 2019-09-04 2019-09-12 Inpatient CHIDI, [facility] [id number] [place] 00:00:00 00:00:00 DOROTA [address] 2019-08-27 2019-08-27 Outpatient ESTRADA, [facility] [id number] [place] 00:00:00 00:00:00 SRINIVASAN [address] 2019-08-27 2019-08-27 Outpatient ESTRADA, [facility] [id number] [place] 00:00:00 00:00:00 SRINIVASAN [address] 2019-08-07 2019-08-21 Inpatient CHIDI, [facility] [id number] [place] 00:00:00 00:00:00 DOROTA [address] Results Test Description Test Time Test Comments Results Result Comments Source Prepare Leuko-Red RBC 2019-10-03 23:54:00 Test Item Value Reference Range Interpretation Comme nts CROSSMATCH (test code = 2264) COMPATIBLE Unit ABO (test code = 0865723) O Pos UNIT NUMBER (test code = 934-0) [id number] Status (test code = 7565811) TX_TIMEINCHART Blood Bank Product (test code = 2263) RED BLOOD CELLS PRODUCT CODE (test code = 933-2) [id number] [facility] [id number] 16:59:00 Test Item Value Reference Range Interpretation Comments POC-Glucose Meter (test 81 mg/dL 70-110 : TE STED AT [facility] code = 1538) [address] [facility], 770 30: Heat Seal Operator/Techni jamey ID = [id number] for QUEEN MURILLO Lab Interpretation (test Normal code = 76652-3) [facility]-GLUCOSE [id number] 16:59:00 Test Item Value Reference Range Interpretation Comments POC-GLUCOSE METER 81 mg/dL 70-110 : TESTED A T [facility] 6720 (BEAKER) (test code = [facility], 1538) [address]25: Heat Seal Operator/Techni jamey ID = [id number] for QUEEN KNOX POCT-GLUCOSE [id number] 11:50:00 Test Item Value Reference Range Interpretation Comments POC-GLUCOSE METER 123 mg/dL 70-110 H : TESTED A T [facility] 6720 (BEAKER) (test code = [facility], 153) 73641: Heat Seal Operator/Techni jamey ID = [id number] for QUEEN BECKER POCT-GLUCOSE [id number] 11:07:00 Test Item Value Reference Range Interpretation Comments POC-GLUCOSE METER 127 mg/dL 70-110 H : TESTED A T [facility] 6720 (BEAKER) (test code = [facility], 1538) 64312: Heat Seal Operator/Techni jamey ID = [id number] for Argenis renteria Thomas POCT-GLUCOSE [id number] 08:22:00 Test Item Value Reference Range Interpretation Comments POC-GLUCOSE METER 78 mg/dL 70-110 : TESTED A T [facility] 6720 (BEAKER) (test code = [facility], 1538) 59114: Heat Seal Operator/Techni jamey ID = [id number] for Thomas Light POCT-GLUCOSE [id number] 07:54:00 Test Item Value Reference Range Interpretation Comments POC-GLUCOSE METER 69 mg/dL 70-110 L : [facility] ([facility] (test code = TATIANA Figueroa [facility], 1538) 95882: Heat Seal Operator/Techni jamey ID = [id number] for QUEEN KNOX Basic Metabolic [id number] 07:05:00 Test Item Value Reference Range Interpretation Comments Sodium (test code = 139 meq/L 655-555 9088-2) Potassium (test code = 3.6 meq/L 3.5-5.1 2823-3) Chloride (test code = 105 meq/L 98-107 2075-0) CO2 (test code = 25 meq/L 22-29 2028-9) BUN (test code = 18 mg/dL 7-21 3094-0) Creatinine (test code 3.59 mg/dL 0.57-1.25 H = 2160-0) Glucose (test code = 74 mg/dL 70-105 2345-7) Calcium (test code = 7.4 mg/dL 8.4-10.2 L 40352-9) EGFR (test code = 12 mL/min/1.73 [place] [address]-8) NOT ACCURATE CREATININE CLEARANCE IN PREDICTING GLOMERULAR FILTRATION RATE . ESTIMATED GFR I S NOT APPLICABLE FOR DIALYSIS PATIENTS. YAMIL (test code = YAMIL) Heat Seal Operator ID - PIAYA L Lab Interpretation Abnormal (test code = 74656-2) [facility] METABOLIC [id number] 07:05:00 Test Item Value Reference Range Interpretation [...] S NOT APPLICABLE FOR DIALYSIS PATIEN TS. Heat Seal Operator ID - PIAYA LCBC with platelet count + automated [id number] 06:42:00 Test Item Value Reference Range Interpretation Comments WBC (test code = 6690-2) 4.5 3.5- 10.5 K/L RBC (test code = 789-8) 2.92 3.93- 5.22 M/L L MCHC (test code = 786-4) 32.3 32.2- 35.5 GM/DL L Hematocrit (test code = 4544-3) 25.7 % 34.1-44.9 L MCV (test code = 787-2) 88.0 fL 79.4-94.8 MCH (test code = 785-6) 28.4 pg 25.6-32.2 RDW (test code = 788-0) 14.6 % 11.7-14.4 H Platelets (test code = 777-3) 226 150- 450 K/CU MM MPV (test code = 29052-3) 9.7 fL 9.4-12.3 nRBC (test code = 413) 0 0- 0 /100 WBC % Neutros (test code = 429) 69 % % Lymphs (test code = 430) 21 % % Monos (test code = 431) 7 % % Eos (test code = 432) 2 % % Baso (test code = 437) 1 % # Neutros (test code = 670) 3.10 1.56- 6.13 K/L # Lymphs (test code = 414) 0.93 1.18- 3.74 K/L L # Monos (test code = 415) 0.32 0.24- 0.36 K/L # Eos (test code = 416) 0.07 0.04- 0.36 K/L # Baso (test code = 417) 0.04 0.01- 0.08 K/L Immature Granulocytes-Relative 0 % 0-1 (test code = 2801) Lab Interpretation (test code = Abnormal 45269-0) [facility] W/PLT COUNT & AUTO [id number] 06:42:00 Test Item Value Reference Range Interpretation [...] PERCENT (BEAKER) (test code = 2801) POCT-GLUCOSE [id number] 21:29:00 Test Item Value Reference Range Interpretation Comments POC-GLUCOSE METER 95 mg/dL 70-110 : TESTED A T [facility] 6720 (BEAKER) (test code = T[place]NA Figueroa [place], 1538) 77179: Heat Seal Operator/Techni jamey ID = [id number] for ANGELA , ZELALEMTU Type and screen, [id number] 19:33:00 Test Item Value Reference Range Interpretation Comments ABO/RH AUTOMATED (BEAKER) (test O POSITIVE code = 2260) Ab Scrn (test code = 890-4) NEGATIVE [facility] [id number] 17:44:00 Test Item Value Reference Range Interpretation [...] S NOT APPLICABLE FOR DIALYSIS PATIEN TS. Heat Seal Operator ID - BSPOCT-GLUCOSE [id number] 17:42:00 Test Item Value Reference Range Interpretation Comments POC-GLUCOSE METER 96 mg/dL 70-110 : TESTED A T [facility] 6720 (BEAKER) (test code = TATIANA Figuero[place], 1538) 77160: Heat Seal Operator/Techni jamey ID = [id number] for DERIK PEDRO CBC W/PLT COUNT & AUTO [id number] 17:37:00 Test Item Value Reference Range Interpretation [...] PERCENT (BEAKER) (test code = 2801) POCT-GLUCOSE [id number] 13:09:00 Test Item Value Reference Range Interpretation Comments POC-GLUCOSE METER 72 mg/dL 70-110 : TESTED A T [facility] 6720 (BEAKER) (test code = [facility], 1538) 00953: Heat Seal Operator/Techni jamey ID = [id number] for WILL IS, GORGE XR Lower Extremity External [id number] 10:39:47This exam was not acquired at a Sabianist facility and has not been interpreted by a Sabianist Provider. The exam was imported into our imaging system.[facility] MethodistPOCT-GLUCOSE [id number] 08:42:00 Test Item Value Reference Range Interpretation Comments POC-GLUCOSE METER 87 mg/dL 70-110 : TESTED A T [facility] 6720 (BEAKER) (test code = [facility], 1538) 71032: Heat Seal Operator/Techni jamey ID = [id number] for IMELDA IS GORGE POCT-GLUCOSE [id number] 21:42:00 Test Item Value Reference Range Interpretation Comments POC-GLUCOSE METER 94 mg/dL 70-110 : TESTED A T [facility] 6720 (BEAKER) (test code = [facility], 1538) 87243: Heat Seal Operator/Techni jamey ID = [id number] for ANGELA , SAUDATU POCT-GLUCOSE [id number] 21:33:00 Test Item Value Reference Range Interpretation Comments POC-GLUCOSE METER 84 mg/dL 70-110 : TESTED A T [facility] 6720 (BEAKER) (test code = [facility], 1538) 51691: Heat Seal Operator/Techni jamey ID = [id number] for ALEKS SODETTEABI POCT-GLUCOSE [id number] 12:49:00 Test Item Value Reference Range Interpretation Comments POC-GLUCOSE METER 139 mg/dL 70-110 H : TESTED A T [facility] 6720 (BEAKER) (test code = [facility], 153) 28241: Heat Seal Operator/Techni jamey ID = [id number] for ABI SALAZAR POCT-GLUCOSE [id number] 10:22:00 Test Item Value Reference Range Interpretation Comments POC-GLUCOSE METER 96 mg/dL 70-110 : TESTED A T [facility] 6720 (BEAKER) (test code = [facility], 153) 51093: Heat Seal Operator/Techni jamey ID = [id number] for Dyllan chip Dayna POCT-GLUCOSE [id number] 08:42:00 Test Item Value Reference Range Interpretation Comments POC-GLUCOSE METER 94 mg/dL 70-110 : TESTED A T [facility] 6720 (BEAKER) (test code = [facility], 153) 75165: Heat Seal Operator/Techni jamey ID = [id number] for ABI ESTES Blood Culture - Routine (Right Venipuncture)2019-10-01 05:00:00 Test Item Value Reference Range Interpretation Comments Result (test code = No growth in 5 days 6463-4) [facility] [id number] 05:00:00 Test Item Value Reference Range Interpretation Comments CULTURE (BEAKER) (test No growth in 5 days code = 1095) POCT-GLUCOSE [id number] 21:02:00 Test Item Value Reference Range Interpretation Comments POC-GLUCOSE METER 117 mg/dL 70-110 H : TESTED A T [facility] 6720 (BEAKER) (test code = [facility], 153) 76228: Heat Seal Operator/Techni jamey ID = [id number] for NORM ARIELARUBENS POCT-GLUCOSE [id number] 16:26:00 Test Item Value Reference Range Interpretation Comments POC-GLUCOSE METER 121 mg/dL 70-110 H : TESTED A T [facility] 6720 (BEAKER) (test code = [facility], 153) 58703: Heat Seal Operator/Techni jamey ID = [id number] for DERIK ALEXANDRA POCT-GLUCOSE [id number] 12:02:00 Test Item Value Reference Range Interpretation Comments POC-GLUCOSE METER 183 mg/dL 70-110 H : TESTED A T [facility] 6720 (BEAKER) (test code = TATIA[place] Fig[place], 1538) 89697: Heat Seal Operator/Techni jamey ID = [id number] for DERIK ALEXANDRA POCT-GLUCOSE [id number] 07:57:00 Test Item Value Reference Range Interpretation Comments POC-GLUCOSE METER 113 mg/dL 70-110 H : TESTED A T [facility] 6720 (BEAKER) (test code = TATIANA Figueroa [facility], 1538) 52943: Heat Seal Operator/Techni jamey ID = [id number] for DERIK ALEXANDRA BASIC METABOLIC [id number] 05:44:00 Test Item Value Reference Range Interpretation [...] S NOT APPLICABLE FOR DIALYSIS PATIEN TS. Heat Seal Operator ID - PIAYA LCBC W/PLT COUNT & AUTO [id number] 05:08:00 Test Item Value Reference Range Interpretation [...] PERCENT (BEAKER) (test code = 2801) POCT-GLUCOSE [id number] 20:17:00 Test Item Value Reference Range Interpretation Comments POC-GLUCOSE METER 164 mg/dL 70-110 H : TESTED A T [facility] 6720 (BEAKER) (test code = [place], 1538) 43998: Heat Seal Operator/Techni jamey ID = [id number] for [place] LMORE, ALYSIA Hemoglobin and [id number] 18:31:00 Test Item Value Reference Range Interpretation Comments Hemoglobin (test code = 8.5 11.2- 15.7 GM/DL L 786-4) Hematocrit (test code = 26.9 % 34.1-44.9 L 4544-3) YAMIL (test code = YAMIL) Heat Seal Operator ID - [id number] Lab Interpretation (test Abnormal code = 76163-1) [facility] HospitalHEMOGLOBIN AND [id number] 18:31:00 Test Item Value Reference Range Interpretation Comments HEMOGLOBIN (BEAKER) (test code = 8.5 GM/DL 11.2-15.7 L 410) HEMATOCRIT (BEAKER) (test code = 26.9 % 34.1-44.9 L 411) Heat Seal Operator ID - [id number]-GLUCOSE [id number] 16:55:00 Test Item Value Reference Range Interpretation Comments POC-GLUCOSE METER 175 mg/dL 70-110 H : TESTED A T [facility] 6720 (BEAKER) ([facility], 1538) 19876: Heat Seal Operator/Techni jamey ID = [id number] for REKHA ASHLEY, ABI POCT-GLUCOSE [id number] 12:00:00 Test Item Value Reference Range Interpretation Comments POC-GLUCOSE METER 188 mg/dL 70-110 H : TESTED A T [facility] 6720 (BEAKER) (test code = [facility] R [facility], 1538) 69068: Heat Seal Operator/Techni jamey ID = [id number] for REKHA ASHLEY, ABI POCT-GLUCOSE [id number] 08:10:00 Test Item Value Reference Range Interpretation Comments POC-GLUCOSE METER 98 mg/dL 70-110 : TESTED A T [facility] 6720 (BEAKER) (test [facility] = [facility], 1538) 29932: Heat Seal Operator/Techni jamey ID = [id number] for ALEKS S, ABI POCT-GLUCOSE [id number] 20:30:00 Test Item Value Reference Range Interpretation Comments POC-GLUCOSE METER 136 mg/dL 70-110 H : TESTED A T [facility] 6720 (BEAKER) (test code = [facility], 1538) 62066: Heat Seal Operator/Techni jamey ID = [id number] for [place] LMORE, ALYSIA POCT-GLUCOSE [id number] 17:08:00 Test Item Value Reference Range Interpretation Comments POC-GLUCOSE METER 157 mg/dL 70-110 H : TESTED A T [facility] 6720 (BEAKER) (test code = TATIANA Figuero[place], 1538) 35436: Heat Seal Operator/Techni jamey ID = [id number] for ANIL RANDOLPH POCT-GLUCOSE [id number] 11:35:00 Test Item Value Reference Range Interpretation Comments POC-GLUCOSE METER 97 mg/dL 70-110 : TESTED A T [facility] 6720 (BEAKER) (test code = TATIANA Figueroa [facility], 1538) 72763: Heat Seal Operator/Techni jamey ID = [id number] for ANIL POON Hepatic function [id number] 05:17:00 Test Item Value Reference Range Interpretation Comments Protein, Total (test code 5.5 6.0- 8.3 gm/dL L = 2885-2) Albumin (test code = 2.5 g/dL 3.5-5 L 15538-2) Total Bilirubin (test code 0.5 mg/dL 0.2-1.2 = 1975-2) Bilirubin, Direct (test 0.4 mg/dL 0.1-0.5 code = 1968-7) Alkaline Phosphatase (test 71 U/L 40-150 code = 6768-6) AST (test code = 1920-8) 20 U/L 5-34 ALT (test code = 1742-6) <6 6-55 L YAMIL (test code = YAMIL) Heat Seal Operator ID - MARCELO Sanchez Lab Interpretation (test Abnormal code = 94116-2) [facility] HospitalHEPATIC FUNCTION [id number] 05:17:00 Test Item Value Reference Range Interpretation [...] code = < U/L 6-55 L 347) Heat Seal Operator VIELKA ROBERTSON WBASIC METABOLIC [id number] 05:13:00 Test Item Value Reference Range Interpretation [...] S NOT APPLICABLE FOR DIALYSIS PATIEN TS. Heat Seal Operator VIELKA ROBERTSON WProthrombin time/[id number] 04:50:00 Test Item Value Reference Range Interpretation Comments Protime (test code = 14.4 11.9- 14.2 H 5902-2) seconds INR (test code = 1.2 <=5.9 6301-6) YAMIL (test code = YAMIL) Effective 11/15/2018: PT Reference Range ChangeNew: 11.9-14.2 Previous: 11.7-14.7 RECOMMENDED COUMADIN/WARFARIN INR THERAPY RANGESSTANDARD DOSE: 2.0-3.0 Includes: PROPHYLAXIS for venous thrombosis, systemic embolization; TREATMENT for venous thrombosis and/or pulmonary embolus.HIGH RISK: Target INR is 2.5-3.5 for patients wiht mechanical heart valves. Lab Interpretation Abnormal (test code = 08566-0) [facility] HospitalPROTHROMBIN TIME/[id number] 04:50:00 Test Item Value Reference Range Interpretation [...] mechanical heart valves.CBC W/PLT COUNT & AUTO [id number] 04:32:00 Test Item Value Reference Range Interpretation [...] PERCENT (BEAKER) (test code = 2801) POCT-GLUCOSE [id number] 21:55:00 Test Item Value Reference Range Interpretation Comments POC-GLUCOSE METER 76 mg/dL 70-110 : TESTED A T [facility] 6720 (BEAKER) (test code = [facility], 1538) 55541: Heat Seal Operator/Techni jamey ID = [id number] for SIMON GERONIMO ANA POCT-GLUCOSE [id number] 17:42:00 Test Item Value Reference Range Interpretation Comments POC-GLUCOSE METER 91 mg/dL 70-110 : TESTED A T [facility] 6720 (BEAKER) (test code = [facility], 1538) 10838: Heat Seal Operator/Techni jamey ID = [id number] for KIRSTIE MCCABE DERIK POCT-GLUCOSE [id number] 12:44:00 Test Item Value Reference Range Interpretation Comments POC-GLUCOSE METER 81 mg/dL 70-110 : TESTED A T [facility] 6720 (BEAKER) (test code = [facility], 1538) 65417: Heat Seal Operator/Techni jamey ID = [id number] for KIRSTIE MCCABE DERIK 2D Echo W/Doppler(CW/PW/Color)2019-09-27 11:02:24Ejection FractionSLEH ECHO HEARTLAB MKCKESSON CPACSInterface, External Ris In - 09/27/2019 11:02 AM C DTTransthoracic Echocardiography Report (TTE) Demographics Patient Name SEAN MOULTON Date ofStudy 09/27/2019 HARMEET Gender Female Visit Number [id number] Race Room Number 922 Number Date of 1940 Referring Ciara Barry Physician MD Jacinto Age 79 year(s) International Marketing Specialist Mary Murillo [facility] Interpreting Quincy Guillaume MD Physician Fellow Joanna Oconnor MD Procedure Type of Study TTE procedure:2DECHO W DOPPLER(CW/PW/COLOR) (Routine) Indications:Initial evaluation of valvular or structural heart disease.Clinical HistoryHGB 8.5HCT 25.5 %DM2, CHF, ESRD, DEMENTIA, HTNHeight: 59 inches Weight: 40.37 kg (89 lbs) BSA: 1.31 m^2 BMI: 17.98 kg/m^2HR: 75 bpm BP: 181/74 mmHg Summary 1. The left ventricle is chamber size (by vol index) is normal. Mild concentric hypertrophy. All of the LV segments contract normally. LVEF by Torres's method of disk assessment is normal (55-60%). Grade 1 diastolic dysfunction (impaired relaxation and low-normal LA pressure). LA sizeis mildly enlarged (35-41 ml/m2). 2. The right ventricular chamber size and systolic function are within normal limits. RA size is normal. Estimated peak systolic PA pressure is 25-30 mmHg (normal range). 3. No significant valvular abnormalities. Previous Study No prior exam available for comparison. Signature Electronically signedby Quincy Guillaume MD(Interpreting physician) on 09/27/2019 11:02 AM Findings Left Ventricle The LV endocardium is adequatelyvisualized. The left ventricle is chamber size (by vol index) is normal (female - LVED vol - 29-61ml/m2). Mild concentric hypertrophy. All of the LV segments contract normally . LVEF by Torres's method of disk assessment is normal (55-60%) .Grade 1 diastolic dysfunction (impaired relaxation and low-normal LA pressure). Left Atrium LA [...] is normal. Estimated peak systolic PA pressure is25-30 mmHg (normal range) . Pulmonic Valve Normal PV structure and fu nction by limited views and Doppler. Aorta Aortic root size(SInus of Valsalva diameter) is normal . Pericardium No significant pericardial effusion is visualized. IVC/SVC/PA/PV/Pleural The estimated RA pressure by IVC dynamics 0-5mmHg . Chambers/Structures Left Atrium LA Volume: 50.97 ml LA Area: 18.81cm^2 LA Vol. Index: 39 ml/m^2 Left Ventricle LVIDd: 4.22 cm LVEDV:87.41 ml LVIDs: 3.63 cm LV Septum Diastolic: 1.1 cm LV PW Diastolic: 0.82 cm LVLength: 6.8 cm LVEDV Torres's:72.96 ml LV FS: 14 % LVESV Torres's:25.29 ml LV EF Torres's: 65.3 % LVEDVI: 56 ml/m^2 LVESVI: [...] m/s Mean Velocity: 1.02 m/s Peak Gradient: 11.43mmHg Mean Gradient: 4.73 mmHg AV Area (continuity): 3.32 cm^2 AV VTI: 30.85 cm AV DVI: 1 LVOT Peak Velocity: 1.39 m/s Peak Gradient: 7.75 mmHg Mean Velocity: 0.89 m/s Mean Gradient: 3.65 mmHg LVOT Diameter: 2.06 cm LVOT VTI: 30.78 cm LVOT Area: 3.33 cm^2 LVOT SV:102.54 ml LVOT CO: 7.69 l/min LVOT CI: 5.87 l/min/m^2Tricuspid Valve TR Velocity: 2.66 m/s TR Gradient: 28.37 mmHgCoastal Communities HospitalPOCT-GLUCOSE METER 2019-09-27 08:13:00 Test Item Value Reference Range Interpretation Comments POC-GLUCOSE METER 81 mg/dL 70-110 : TESTED A T [facility] 6720 (BEAKER) (test code = [place], 1538) 37427: Heat Seal Operator/Techni jamey ID = [id number] for DERIK PEDRO BASIC METABOLIC [id number] 05:48:00 Test Item Value Reference Range Interpretation [...] S NOT APPLICABLE FOR DIALYSIS PATIEN TS. Heat Seal Operator ID - PIAYA LHEPATIC FUNCTION [id number] 05:48:00 Test Item Value Reference Range Interpretation [...] code = < U/L 6-55 L 347) Heat Seal Operator ID Cristina MUHAMMAD [id number] 05:47:00 Test Item Value Reference Range Interpretation Comments Phosphorus (test code = 2.6 mg/dL 2.3-4.7 2777-1) YAMIL (test code = YAMIL) Heat Seal Operator ID Cristina MUHAMMAD L Lab Interpretation (test Normal code = 02212-9) [facility] HospitalPHOSPHORUS2020-04-09 05:47:00 Test Item Value Reference Range Interpretation Comments PHOSPHORUS (BEAKER) (test code = 2.6 mg/dL 2.3-4.7 604) Heat Seal Operator ID Cristina MUHAMMAD LPROTHROMBIN TIME/[id number] 05:20:00 Test Item Value Reference Range Interpretation [...] mechanical heart valves.CBC W/PLT COUNT & AUTO [id number] 05:11:00 Test Item Value Reference Range Interpretation [...] PERCENT (BEAKER) (test code = 2801) POCT-GLUCOSE [id number] 21:09:00 Test Item Value Reference Range Interpretation Comments POC-GLUCOSE METER 125 mg/dL 70-110 H : TESTED A T [facility] 6720 (BEAKER) (test code = [facility], 1538) 94438: Heat Seal Operator/Techni jamey ID = [id number] for NEGAR KHALIL POCT-GLUCOSE [id number] 17:10:00 Test Item Value Reference Range Interpretation Comments POC-GLUCOSE METER 93 mg/dL 70-110 : TESTED A T [facility] 6720 (BEAKER) (test code = [facility], 1538) 16999: Heat Seal Operator/Techni jamey ID = [id number] for DERIK PEDRO Hemoglobin [id number] 12:38:00 Test Item Value Reference Range Interpretation Comments Hemoglobin A1C (test code = 4548-4) 5.6 % 4.3-6.1 Lab Interpretation (test code = Normal 15648-5) [facility] HospitalHEMOGLOBIN [id number] 12:38:00 Test Item Value Reference Range Interpretation Comments HEMOGLOBIN A1C (BEAKER) (test code = 5.6 % 4.3-6.1 368) POCT-GLUCOSE [id number] 11:50:00 Test Item Value Reference Range Interpretation Comments POC-GLUCOSE METER 97 mg/dL 70-110 : TESTED A T [facility] 6720 (BEAKER) (test code = [facility], 1538) 01419: Heat Seal Operator/Techni ajmey ID = [id number] for Thomas Light Hepatitis B surface [id number] 10:03:00 Test Item Value Reference Range Interpretation Comments HBsAg Screen (test code = Nonreactive Nonreactive 5195-3) YAMIL (test code = YAMIL) Heat Seal Operator ID - HANNAH C Lab Interpretation (test Normal code = 52630-8) [facility] HospitalHEPATITIS B SURFACE [id number] 10:03:00 Test Item Value Reference Range Interpretation Comments HEPATITIS B SURFACE ANTIGEN (2) Nonreactive Nonreactive (BEAKER) (test code = 2585) Heat Seal Operator ID - HANNAH CCBC W/PLT COUNT & AUTO [id number] 09:36:00 Test Item Value Reference Range Interpretation [...] 0-1 PERCENT (BEAKER) (test code = 2801) [id number] 09:33:00 Test Item Value Reference Range Interpretation Comments Magnesium (test code = 2.0 mg/dL 1.6-2.6 46650-4) YAMIL (test code = YAMIL) Heat Seal Operator ID - HANNAH C Lab Interpretation (test Normal code = 37137-9) [facility] HospitalMAGNESIUM2020-04-08 09:33:00 Test Item Value Reference Range Interpretation Comments MAGNESIUM (BEAKER) (test code = 2.0 mg/dL 1.6-2.6 627) Heat Seal Operator ID - HANNAH CPOCT-GLUCOSE [id number] 07:55:00 Test Item Value Reference Range Interpretation Comments POC-GLUCOSE METER 65 mg/dL 70-110 L : TESTED A T [facility] 6720 (BEAKER) (test code = [place], 1538) 93410: Heat Seal Operator/Techni jamey ID = [id number] for DERIK PEDRO [id number] 05:36:00 Test Item Value Reference Range Interpretation Comments Ferritin (test code = 1973.82 ng/mL 5-275 H 2276-4) YAMIL (test code = YAMIL) Heat Seal Operator ID Cristina Contreras Lab Interpretation (test Abnormal code = 07174-6) [facility] HospitalFERRITIN2020-04-08 05:36:00 Test Item Value Reference Range Interpretation Comments FERRITIN (BEAKER) (test code = 1973.82 ng/mL 5.00-275.00 H 361) Heat Seal Operator ID Cristina WILKINSON MVitamin B12 and [id number] 05:32:00 Test Item Value Reference Range Interpretation Comments Vitamin B12 (test code = 1334 pg/mL 213-816 H 2132-9) Folate (test code = 6.40 ng/mL >=7.00 L 2284-8) YAMIL (test code = YAMIL) Heat Seal Operator ID Cristina WILKINSON M Lab Interpretation (test Abnormal code = 85428-5) [facility] HospitalVITAMIN B12 AND [id number] 05:32:00 Test Item Value Reference Range Interpretation Comments VITAMIN B12 (BEAKER) (test code = 1334 pg/mL 213-816 H 774) FOLATE (BEAKER) (test code = 362) 6.40 ng/mL >=7.00 L Heat Seal Operator ID - MINH MRAD, HIP, 2 VIEWS, [id number] 05:18:00Reason for exam:->fractureFINAL REPORT CLINICAL HISTORY: "Fracture" COMPARISON: None. FINDINGS: 2 views of the left hip are submitted. There is no acute fracture or malalignment. There are fixation screws in the femoral neck which appear properly positioned. Surgical joselin overlie the left lateral hip. Signed: Bri Landers MDReport Verified Date/Time: 09/26/2019 05:18:36 Electronically signedby: BRI LANDERS M.D. on 09/26/2019 05:18 AMXR hip 2 views [id number] 05:18:00Interface, External Ris In - 09/26/2019 5:20 AM CDTFINAL REPORT CLINICAL HISTORY: "Fracture" COMPARISON: None. FINDINGS: 2 views of the left hip are submitted. There is no acute fracture or malalignment. There are fixation screws in the femoral neck which appear properly positioned. Surgical joselin overlie the left lateral hip. Signed: Bri Landers MDReport Verified Date/Time: 09/26/2019 05:18:36 [facility], TIBC, % sat. (without ferritin)2019-09-26 05:09:00 Test Item Value Reference Range Interpretation Comments Iron (test code = 2498-4) 16.0 ug/dL 40-160 L TIBC (test code = 2500-7) 119 ug/dL 250-450 L Iron % Saturation (test 13 % 20-55 L code = 2502-3) YAMIL (test code = YAMIL) Heat Seal Operator ID - MINH Contreras Lab Interpretation (test Abnormal code = 74316-0) [facility], TIBC, % SAT. (WITHOUT FERRITIN)2019-09-26 05:09:00 Test Item Value Reference Range Interpretation Comments IRON (BEAKER) (test code = 547) 16.0 ug/dL 40.0-160.0 L TOTAL IRON BINDING CAPACITY 119 ug/dL 250-450 L (BEAKER) (test code = 769) IRON % SATURATION (2) (BEAKER) 13 % 20-55 L (test code = 8870) Heat Seal Operator VIELKA WILKINSON MBASIC METABOLIC [id number] 02:38:00 Test Item Value Reference Range Interpretation [...] S NOT APPLICABLE FOR DIALYSIS PATIEN TS. Heat Seal Operator VIELKA WILKINSON MPROTHROMBIN TIME/[id number] 02:36:00 Test Item Value Reference Range Interpretation [...] for patients wiht mechanical heart valves.HEPATIC FUNCTION [id number] 02:32:00 Test Item Value Reference Range Interpretation [...] (test code = 6 U/L 6-55 347) Heat Seal Operator ID - MINH HUFFMAN, [id number] 02:31:00 Test Item Value Reference Range Interpretation Comments ABO Grouping (test code = 2588) O Rh Factor (test code = 2589) POS [facility] W/PLT COUNT & AUTO [id number] 02:20:00 Test Item Value Reference Range Interpretation [...] 0-1 PERCENT (BEAKER) (test code = 2801) Comprehensive metabolic [id number] 23:10:00 Test Item Value Reference Range Interpretation Comments Protein, Total (test 6.0 6.0- 8.3 gm/dL code = 2885-2) Albumin (test code = 2.8 g/dL 3.5-5 L 21150-9) Alkaline Phosphatase 88 U/L 40-150 (test code = 6768-6) Total Bilirubin (test 0.5 mg/dL 0.2-1.2 code = 1975-2) Sodium (test code = 134 meq/L 136-145 L 2951-2) Potassium (test code = 3.1 meq/L 3.5-5.1 L 2823-3) Chloride (test code = 101 meq/L 98-107 2075-0) CO2 (test code = 19 meq/L 22-29 L 8-9) BUN (test code = 45 mg/dL 7-21 H 3094-0) Creatinine (test code 5.17 mg/dL 0.57-1.25 H = 2160-0) Glucose (test code = 77 mg/dL 70-105 2345-7) Calcium (test code = 7.6 mg/dL 8.4-10.2 L 88856-7) AST (test code = 20 U/L 5-34 1920-8) ALT (test code = <6 6-55 L 1742-6) EGFR (test code = 8 mL/min/1.73 [place] [address]-0) NOT ACCURATE CREATININE CLEARANCE IN PREDICTING GLOMERULAR FILTRATION RATE . ESTIMATED GFR I S NOT APPLICABLE FOR DIALYSIS PATIENTS. YAMIL (test code = YAMIL) Heat Seal Operator ID - BS Lab Interpretation Abnormal (test code = 15474-7) [facility] HospitalCOMPREHENSIVE METABOLIC [id number] 23:10:00 Test Item Value Reference Range Interpretation [...] S NOT APPLICABLE FOR DIALYSIS PATIEN TS. Heat Seal Operator ID - BSPROTHROMBIN TIME/[id number] 23:07:00 Test Item Value Reference Range Interpretation [...] mechanical heart valves.CBC W/PLT COUNT & AUTO [id number] 22:49:00 Test Item Value Reference Range Interpretation [...] PERCENT (BEAKER) (test code = 2801) POCT-GLUCOSE [id number] 20:35:00 Test Item Value Reference Range Interpretation Comments POC-GLUCOSE METER 102 mg/dL 70-110 : TESTED A T [facility] 6720 (BEAKER) (test code = [place], 1538) 04073: Heat Seal Operator/Techni jamey ID = [id number] for ALYSIA RENDON POC [id number] 12:04:07 Test Item Value Reference Range Interpretation Comments POC glucose (test code = 104 mg/dL 65-99 H Ope rator Name: [id number]) [facility] ID: [id number] able: [facility] Notified civil geotechnical engineer Interpretation (test Abnormal code = 92464-0) [facility] [id number] 14:50:34 Test Item Value Reference Range Interpretation Comments Hepatitis B surface Ag (test Non-reactive Non-reactive code = 5195-3) [facility] [id number] 09:08:24 Test Item Value Reference Range Interpretation Comments Sodium (test code = 2951-2) 133 135- 148 mEq/L L Potassium (test code = 2823-3) 3.7 3.5- 5.0 mEq/L Chloride (test code = 5-0) 95 98- 112 mEq/L L CO2 (test code = 2027-9) 23 24- 31 mEq/L L Anion gap (test code = 62972-7) 15@ANIO 7- 15 mEq/L BUN (test code = 3094-0) 35 mg/dL 8-23 H Creatinine (test code = 2160-0) 4.76 mg/dL 0.5-0.9 H Glucose (test code = 2345-7) 80 mg/dL 65-99 Calcium (test code = 38212-2) 8.4 mg/dL 8.8-10.2 L Lab Interpretation (test code = Abnormal 65886-1) Richardson MethodistEstimated UNI1605-98-19 09:08:23 Test Item Value Reference Range Interpretation Comments Estimated GFR (test 8 mL/min/1.73 m2 Inge díaz Units code = 5488) InterpretationG 1 >=90 Melvina l or highG2 60-89 Mildly decrease dG3a 45-59 Mil dly to moderately decr editvO6p 30-44 Moderately to s everely decreasedG4 15-29 Severe ly decreasedG5 <15 Kidney nicola lureThe eGFR was calcul ated using the Chron Kidney Disease Epidemiology Collaboration ( CKD-EPI) equation. Interpretation is based on recommendati ons of the National Ki dney Foundation-Kidn ey Disease Outcome s Quality Initiat siddharth (NKF-KDOQI) pub lished in 2013. Lab Interpretation Abnormal (test code = 23191-2) Richardson MethodistCBC with platelet and hwqgqybheczs6647-71-40 08:27:24 Test Item Value Reference Range Interpretation Comments WBC (test code = 95546-2) 5.56 4.50- 11.00 k/uL RBC (test code = 02821-5) 3.30 m/uL 4.2-5.5 L HGB (test code = 718-7) 8.8 g/dL 12-16 L HCT (test code = 4544-3) 28.2 % 37-47 L MCV (test code = 787-2) 85.5 fL 82-100 MCH (test code = 785-6) 26.7 pg 27-34 L MCHC (test code = 786-4) 31.2 g/dL 31-37 RDW - SD (test code = 46.1 fL 37-55 62179-4) MPV (test code = 15794-3) 9.7 fL 8.8-13.2 Platelet count (test code 340 150- 400 k/uL = 27377-7) Nucleated RBC (test code 0.00 /100 WBC = 47960-0) Neutrophils (test code = 62.7 % 39-69 01587-3) Lymphocytes (test code = 26.6 % 25-45 65168-5) Monocytes (test code = 6.8 % 0-10 11919-3) Eosinophils (test code = 2.5 % 0-5 75107-3) Basophils (test code = 0.9 % 0-1 10016-0) Immature granulocytes 0.5 % 0-1 "Immat ure (test code = 19580-5) granul ocytes" (promyelocytes, myelocytes, metamyelocytes) Lab Interpretation (test Abnormal code = 65037-6) [facility] emrweqgc3278-37-39 09:37:00 Test Item Value Reference Range Interpretation Comments WBC (test code = 95237-7) 8.65 4.50- 11.00 k/uL RBC (test code = 80496-2) 3.17 m/uL 4.2-5.5 L HGB (test code = 718-7) 8.3 g/dL 12-16 L HCT (test code = 4544-3) 27.5 % 37-47 L MCV (test code = 787-2) 86.8 fL 82-100 MCH (test code = 785-6) 26.2 pg 27-34 L MCHC (test code = 786-4) 30.2 g/dL 31-37 L RDW - SD (test code = 99891-4) 46.7 fL 37-55 MPV (test code = 17215-1) 10.2 fL 8.8-13.2 Platelet count (test code = 298 150- 400 k/uL 34136-9) Nucleated RBC (test code = 0.00 /100 WBC 03530-5) Lab Interpretation (test code = Abnormal 65110-0) [facility] ewwqp7211-76-95 09:32:53 Test Item Value Reference Range Interpretation Comments Magnesium (test code = 64969-0) 2.0 mg/dL 1.6-2.4 Richardson AminPhosphorus abmou9646-25-25 09:32:53 Test Item Value Reference Range Interpretation Comments Phosphorus (test code = 2777-1) 5.5 mg/dL 2.4-4.5 H Lab Interpretation (test code = Abnormal 19553-2) Richardson BaueristOR [place] > I Kyww6403-92-52 20:48:48Hm Interface, Radiology Results 09/07/2019 8:51 PM CDTEXAMINATION: OR [place] > 1 HOURC-arm fluoroscopy was requested in OR. Location: OPC19 - OR12 Procedure: LEFT HIP PINNING Start Time: 729 End Time: 914 Fluoro Time: 1MIN 27SECDose (mGy): 6.98mGyTech(s): jmIMPRESSION:Separate operative report will be issued by the physician performing the procedure.[id number] FyekwtxdqVxcjac8473-98-01 08:41:10SoMatias silva Jr., CRNA 09/07/2019 8:42 AMAirwayDate/Time: 09/07/2019 8:05 AMPerformed by: Matias Douglas Jr., CRNAAuthorized by: Jm Magana MD Location: ORUrgency: ElectiveDifficult Airway: No Anesthesiologist: Jm Magana MDResident/STRATEGY ASSOCIATE/AA: Matias Douglas Jr. CRNAPerformed by: resident/STRATEGY ASSOCIATE/AAPreoxygenated with 100% O2: Yes C-spine Precautions Maintained [...] RSI: No Number of Attempts at Approach: Yevgeniy ZhengC panel 72756-93-20 07:21:50 Test Item Value Reference Range Interpretation Comments POC sodium (test code = 131 mmol/L 135-148 L 2947-0) POC potassium (test 4.0 mmol/L 3.5-5 code = 6298-4) POC hematocrit (test 30 % 37-47 L code = 4544-3) POC glucose (test code 132 mg/dL 65-99 H Opera tor Name: Lamont = 2339-0) Dwain ID: [id number] Lab Interpretation Abnormal (test code = 30903-7) Bai MethodistFerritin idjly0964-95-64 07:16:11 Test Item Value Reference Range Interpretation Comments Ferritin level (test code = 2276-4) 928 ng/mL 13-150 H Lab Interpretation (test code = Abnormal 68516-0) Bai MethodistPartial thromboplastin time, fthlkdigg8600-46-21 07:13:51 Test Item Value Reference Range Interpretation Comments PTT (test code = 36.4 23.0- 36.0 sec H PTT thera peutic range 31336-4) for unfractiona ida heparin is61.0- 112.0 seconds which corresponds to Anti-Xa0.3-0.7 U/ml. Lab Interpretation Abnormal (test code = 67405-1) Bai MethodistProthrombin time with TYJ5928-79-07 07:13:35 Test Item Value Reference Range Interpretation Comments Prothrombin time (test 14.6 11.5- 14.5 sec H code = 5902-2) INR (test code = 1.1 The Interna tional 33002-7) Normalized Rati o (INR) is a therapeuti c monitoring tool for patients who ar e stable on oral anticoagulant t herapy. An INR of 2.0-3 .0 is suggested for d eep vein thrombosis/pulm onary embolism. Lab Interpretation Abnormal (test code = 06341-3) Bai MethodistTotal iron binding hlqwmqep2168-40-83 07:11:51 Test Item Value Reference Range Interpretation Comments Iron level (test code = 2498-4) 31 ug/dL 37-145 L Iron binding capacity (test code = 166 ug/dL 200-400 L 2500-7) % Saturation (test code = 2502-3) 18.7 % 15-38 Lab Interpretation (test code = Abnormal 12578-4) Richardson MethodistECG 12 lzrq1408-95-33 13:38:49 Test Item Value Reference Range Interpretation Comments Ventricular rate (test 77 code = 253) Atrial rate (test code 77 = 255) AK interval (test code 130 = 266) QRSD [...] for LVH, may be normal variant ( Charlotte product )-ST & T wave abnormality, consider lateral ischemia-Abnormal ECG-In automated comparison with ECG of 19-AUG-2019 09:26,-No significant change was found- Ramsey LizetteistAlbumin elfei7049-02-82 07:02:27 Test Item Value Reference Range Interpretation Comments Albumin (test code = 1751-7) 2.5 g/dL 3.5-5 L Lab Interpretation (test code = Abnormal 11476-3) Ramsey MethodistXR Hip 2-3 View Cdtt1550-35-88 14:16:47Hm Interface, Radiology Results Incoming - 09/05/2019 2:19 [...] acute fracture or dislocation.3. Vascular consultations are present.[facility]-6VU9089ZTCSrgvzth MethodistXR Pelvis 1 Or 2 Dt5841-67-71 14:15:32Hm Interface, Radiology Results Incoming - 09/05/2019 2:18 [...] seen within the left and right hip joints.STJO-4OK6705XSP.Ramsey MethodistXR Femur 2 Vw Qzoc8538-42-58 14:15:31Hm Interface, Radiology Results Incoming - 09/05/2019 2:18 PM CDTEXAMINATION: XR FEMUR 2 VW LEFTCLINICAL HISTORY: Fracture femurCOMPARISON: None.FINDINGS:There is a subcapital femoral neck fracture, with slight impaction and valgus angulation noted.Moderate vascular calcifications are present.IMPRESSION:Left-sided Subcapital femoral neck fracture.OPC-[id number] MethodistType and zsdnzi8744-36-46 07:41:00 Test Item Value Reference Range Interpretation Comments ABO grouping (test code = 883-9) O Rh type (test code = 15403-6) POS Antibody screen (gel) (test code = NEG 890-4) Ramsey MethodistUrine vckzrve0517-88-55 09:52:00 Test Item Value Reference Range Interpretation Comments Urine culture SEE NOTE CULTURE, URI NE, (test code = ROUTINE Aram ro 630-4) Number: [id number] Test Status: Final Specimen Source: URINE Specimen Qualit y: Adequate Resul t: Multi ple organisms prese nt, each less than 10,000 CFU/mL. These organisms , commonly found on external and internal genitalia, are considered to be colonizers. No further testing performed. YAMIL (test code = FASTING:UNKNOWNFASTI YAMIL) NG: UNKNOWN RAC (test code = Performing RAC) Organization Information: Site ID: [facility] Address: [address] [place] [id number] Director: Ed Bai MethodistURINALYSIS, COMPLETE, WITH REFLEX TO KCDHYYP5448-49-36 09:52:00 Test Item Value Reference Range Interpretation Comments Color, UA (test code = YELLOW YELLOW 5778-6) Appearance (test code = CLOUDY CLEAR A 5767-9) Specific gravity, urine 1.024 1.001-1.035 (test code = 5811-5) pH, urine (test code = < OR = 5.0 5.0-8.0 5803-2) Glucose, urine (test 1+ NEGATIVE A code = 48339-7) Bilirubin, UA (test code NEGATIVE NEGATIVE = 5770-3) Ketones, UA (test code = NEGATIVE NEGATIVE 2514-8) Occult blood, urine NEGATIVE NEGATIVE (test code = 5794-3) Protein, UA (test code = 3+ NEGATIVE A 56326-3) Nitrite, UA (test code = NEGATIVE NEGATIVE 5802-4) Leukocyte esterase, UA TRACE NEGATIVE A (test code = 5799-2) WBC, UA (test code = 20-40 < OR = 5 /HPF A 5821-4) RBC, UA (test code = 0-2 < OR = 2 /HPF 25753-1) Squamous epithelial 0-5 < OR = 5 /HPF cells, UA (test code = 87359-5) Bacteria, UA (test code NONE SEEN NONE SEEN /HPF = 5769-5) Hyaline casts, UA (test NONE SEEN NONE SEEN /LPF code = 5796-8) Reflex (test code = CULTURE INDICATED - 630-4) RESULTS TO FOLLOW YAMIL (test code = YAMIL) FASTING:UNKNOWNFASTIN G: UNKNOWN RAC (test code = RAC) Performing Organization Information: Site ID: RGA [facility]: [facility] Address: [address] [place] [id number] Director: Ed Roldan Lab Interpretation (test Abnormal code = 94913-8) Ramsey MethodistXR Chest 2 Oh9546-19-23 17:00:35Hm Interface, Radiology Results Incoming - 08/27/2019 5:03 [...] in the chest.IMPRESSION: No acute intrathoracic abnormality identified.[facility]-[id number] MethodistManual epgihaiymfjh8826-22-50 10:16:54 Test Item Value Reference Range Interpretation Comments Manual differential (test code = PERFORMED 99678-3) Neutrophils (test code = 80.0 % 39-69 H 04674-9) Lymphocytes (test code = 15.0 % 25-45 L 62494-5) Monocytes (test code = 67013-5) 2.0 % 0-10 Eosinophils (test code = 3.0 % 0-5 57778-6) Basophils (test code = 18728-5) 0.0 % 0-1 Metamyelocytes (test code = 0 % 740-1) Promyelocytes (test code = 0 % 783-1) Platelet slide review (test code Yael adequate = 93025-5) Anisocytosis (test code = 702-1) Moderate Polychromasia (test code = Moderate 20297-9) Ovalocytes (test code = 774-0) Moderate Lab Interpretation (test code = Abnormal 18714-1) Bai MethodistCv stress jsgy6472-22-25 19:58:41 Test Item Value Reference Range Interpretation Comments Resting HR (test code 77 = 9524259607) Resting BP (test code 114 = 6423893932) Peak MET Achieved 1 (test code = 6323783314) Protocol Name (test REGADENO code = 9925825434) Time in Exercise 00:01:00 Phase (test code = 8204723372) Max Systolic BP (test 120 code = 5965429028) Max Diastolic BP 60 (test code = 6937929564) Max Heart Rate (test 90 code = 2964056260) Max Predicted Heart 143 Rate (test code = 0471172673) Target HR Formula (220 - Age)*100% (test code = 2265341412) Test Indication (test CHF EVALUATION FOR code = 7613451593) ISCHEMIA Arrhy During Ex (test code = 9647481250) ECG Interp Before EX (test code = 2354908637) ECG Interp During Ex (test code = 5351850729) Ex Summary Comment (test code = 8215135233) Overall HR Response to Exercise (test code = 2750157745) Overall BP Response To Exercise (test code = 6959674332) Reason for Protocol Complete Termination (test code = 9708011560) Stress Test Waveform interpreted in Impression (test code report associated with = 4134317159) image study. No interpretation is provided as part of this Stress ECG report.-- [facility] myocardial mccqyymbv0237-57-46 11:46:00Interface, Radiology Results In - 08/17/2019 11:46 AM [facility] Nuclear Cardiology and Cardiac CT [address] [place] [address] Myocardial Perfusion Imaging Report Stress ECG tracings are available in [place], Marley Spoon and [employer] All ECG interpretations are included in this reportPat.Name: SEAN MOULTON.ID: [id number] .Date: 08/17/2019 Refer.MD: DOROTA MURILLO MDExamaya Time: 8:39:00 AM Study Type:Myocardial Perfusion ImagingHeight: 58inBSA: 1.33 m2 Age: 7 1940,79Y Sex: FEMALE BP: 114/57 HR: 76 bpm Nuclear Tech:STEPHANIE Barrett, CNMTPat. Stat.:Inpatient Room: [facility] A Tape Vol: 19.86, Nuclear Event ID:[id number] Order ID: [id number] Reason for Study:CHF, Evaluate for IschemiaHistory / [...] 85 beats/ minute.Signed 08/17/2019 11:46 AMFarheen Gibbs MDRamsey MethodistCT Head Wo Lngmwogd6510-33-92 11:26:07Hm Interface, Radiology Results Incoming - 08/16/2019 11:29 AM CSTEXAMINATION: CT HEAD WO [...] control.IMPRESSION: No acute intracranial hemorrhage or mass effect.HMWB-[id number] MethodistHepatitis B core antibody wxamn7989-36-37 12:13:53 Test Item Value Reference Range Interpretation Comments Hepatitis B core total Ab (test Non-reactive Non-reactive code = 02502-6) Ramsey MethodistHepatitis C pialqhvi8932-49-75 12:09:36 Test Item Value Reference Range Interpretation Comments Hepatitis C Ab (test code = Non-reactive Non-reactive 67878-5) Ramsey MethodistHepatitis B surface pndtzpup7725-94-96 11:37:51 Test Item Value Reference Range Interpretation Comments Hepatitis B surface Ab (test Non-reactive Non-reactive code = 48754-8) Ramsey MethodistIR Tunneled Dialysis Catheter Mekxiwdnx7019-50-80 07:37:09Hm Interface, Radiology Results Incoming - 08/14/2019 7:40 [...] nurse and the performing provider.Duration of intraservice iqzd-fy-kcvl anesthesia/sedation: 19 minutesAccess:Local anesthesia was administered. The vein was evaluated with preprocedure ultrasound and noted to be patent. Real-time ultrasound was used to visualize needle entry into the vessel and a permanent image was not stored. A 0.035 inch Amplatz was advanced into the inferior vena cavaand an image was archived.Vein accessed: Right internal jugular vein Access technique:5 Malaysian micropuncture setVenography:Vein catheterized: N/AIndication for venography: Not [...] details: N/AEstimated blood loss: Less than 10 [facility]-2KT3997XGD Ramsey MethodistDNA Ab doosni5136-29-90 14:04:23 Test Item Value Reference Range Interpretation Comments DNA Ab screen (test code = 1297) Not Detected Not-Detected Ramsey MethodistIonized ktekgvs2298-39-34 06:09:44 Test Item Value Reference Range Interpretation Comments pH (test code = 2753-2) 7.52 Ionized calcium (test code = 1.06 mmol/L 1.11-1.32 L ) Lab Interpretation (test code = Abnormal 70650-7) Ramsey MethodistPotassium ivmrn1020-56-90 05:45:59 Test Item Value Reference Range Interpretation Comments Potassium (test code = 2823-3) 4.2 3.5- 5.0 mEq/L Ramsey MethodistXR Chest 1 Vw Evrmvqtc5595-36-29 09:23:25Hm Interface, Radiology Results Incoming - 08/12/2019 9:26 AM CSTStudy:XR CHEST 1 VW PORTABLEHistory: ICU pt stable with no clinical status changesCOMPARISON: 08/09/2019IMPRESSION:A single view of thechest. Small to moderate bilateral pleural effusions. No pneumothorax. Likely atelectasis of the lower lobes. Cardiac silhouette is enlarged, stable. Visualized osseous structures are stable.[facility] CITYJ-[id number] MethodistB natriuretic fdzyrxs0381-42-93 07:02:05 Test Item Value Reference Range Interpretation Comments BNP (test code = 33581-6) 2296 pg/mL 0-100 H Lab Interpretation (test code = Abnormal 25056-7) Richardson MethodistGlomerular basement membrane Ab IgG (IFA)2019-08-12 03:09:04 Test Item Value Reference Range Interpretation Comments Glomerular basement Negative Negative INTERPRE TIVE INFORMATION: membrane Ab (test GBM Ab, I gG (IFA)When code = 00082-6) present, IgG antibody to glomerular base ment [...] veloped and characteris tics determined by A [facility] Laboratories. S ee Compliance Stat ement D: AMKAI/CSP erformed by [employer] [facility] systemrin,[address], [place] [address] uzt .[employer].c om, Dusty Sousa do, MD, Lab. Director Bai SabianistOccult blood, iqacv1786-20-89 20:04:48 Test Item Value Reference Interpretation Comments Range Occult blood, stool Positive for A Specimen (test code = Occult blood InformationSpec imen 2334-1) Source: StoolSp ecimen Site: Nonpreser marya Lab Interpretation Abnormal (test code = 09994-1) Bai LizetteistHemoglobin & piywpfyaxy1430-65-26 17:18:32 Test Item Value Reference Range Interpretation Comments HGB (test code = 718-7) 10.0 g/dL 12-16 L Resu lts double checked. HCT (test code = 4544-3) 30.2 % 37-47 L Lab Interpretation (test Abnormal code = 02226-0) Bai MethodistSmear qdmshk7313-13-44 12:04:31 Test Item Value Reference Range Interpretation Comments Platelet slide review (test code Yael adequate = 90801-2) Anisocytosis (test code = 702-1) Moderate Polychromasia (test code = Moderate 51829-0) Ovalocytes (test code = 774-0) Moderate Richardson MethodistPrepare RBC, 2 Wxljt5551-57-96 11:20:00 Test Item Value Reference Range Interpretation Comments Product name (test code Apheresis Red Cell AS3 = 25) #2 LR Unit number (test code [id number] = 0783840) Product code (test code [id number] = 3092) Dispense status (test Transfused code = 24) Blood expiration date (test code = 302) Blood type code (test 5100 code = 308) Blood type (test code = O POSITIVE 1314) Compatibility (test Compatible code = 6400) Richardson MethodistANA esgam0231-69-64 10:33:49 Test Item Value Reference Range Interpretation Comments TORITO titer (test code = 50268-2) 1:160 Not-Detected A TORITO pattern (test code = 97521-9) Speckle Not-Detected A Lab Interpretation (test code = Abnormal 38233-1) Richardson QixhzlzfqLGU9027-06-80 10:30:09 Test Item Value Reference Range Interpretation Comments TORITO screen (test code Positive Negative A Test p erformed using = 550) [employer] DAPI TORITO kit (Indirect Immunofluoresce nce Assay) for Anti -Nuclear Antibody on ZenkarsA-Lyser 16 0 Analyzer. Lab Interpretation Abnormal (test code = 74604-5) Richardson Millerti-neutrophilic cytoplasmic Abs zwrfa1680-46-12 13:19:32 Test Item Value Reference Range Interpretation Comments ANCA screen (test code = 3472) Negative Negative Richardson AminUS Renal Gmmipmx4664-77-64 22:31:53Hm Interface, Radiology Results Incoming - 08/09/2019 10:35 [...] may be related to underlying medical/parenchymal renal disease.[facility]-7JQ4587LORYexgacq MethodistBody fluid ofcfzio8546-80-16 22:18:09 Test Item Value Reference Range Interpretation Comments Body fluid consult Done Approxima tely 1 granular (test code = 987) cast per l ow power field. One hyaline abilio t per low power field. S mall cluster of tubular epit helial cells. No tubu lar epithelial cast s seen. Findings review ed with Dr. Saldaña on 08/09/2019Revie wed by Camila Richard M.D. Ramsey MethodistSmith bcugtyxw0865-39-64 16:56:14 Test Item Value Reference Range Interpretation Comments Barnett antibody (test <0.2 0.0- 0.9 AI code = 52462-9) Barnett antibody Negative AI Anti-Barnett an tibodies interp (test code = occurs i n 30-35% of 5269) systemic lupus erythematosus ( SLE) cases, but is v cesar specific for SL E. It may also present in mixed connective-tiss ue disease (MCTD). [facility]um qblucsxxrwzehgu6081-35-23 16:36:40 Test Item Value Reference Range Interpretation Comments Protein (test code = 5.8 g/dL 6.3-8.3 L 9994.6-7.0 2885-2) g/dL1 uumu6887.4-7.6 g/dL7 months-0uaua450 .1-7 .3 g/dL1-2 .6-7.5 g/dL>3 ydquh395.0-8.0 g/dN81-4885424. 3-8. 3 g/dL SPE albumin (test code [...] nd interpretation (test albumin are code = 27158-3) decreased suggesting prot ein malnutrition. SPE interpretation See Comment Blas chaparro MD; (test code = 2218) Gabino avila MD; Sharon Zhou, PhD ; Home Gooden MD Lab Interpretation Abnormal (test code = 87861-2) Ramsey MethodistC4 complement fwtyhxvln1254-11-72 13:24:20 Test Item Value Reference Range Interpretation Comments C4 complement (test code = 4498-2) 38 mg/dL 10-40 Ramsey MethodistC3 complement jvbkkgidi7338-10-05 13:24:20 Test Item Value Reference Range Interpretation Comments C3 complement (test code = 4485-9) 92 mg/dL 90-180 Ramsey MethodistUrinalysis, automated with ijbtfcuxxf8480-20-67 13:04:31 Test Item Value Reference Range Interpretation Comments Color, UA (test code = 5778-6) Straw Appearance, UA (test code = 5767-9) Clear Specific gravity, UA (test code = 1.006 1.001-1.035 5811-5) pH, UA (test code = 5803-2) 5.0 5.0-8.5 Protein, UA (test code = 12867-8) 3+ Negative A Glucose, UA (test code = 81805-5) 3+ Negative A Ketones, UA (test code = 2514-8) Negative Negative Bilirubin, UA (test code = 5770-3) Negative Negative Blood, UA (test code = 5794-3) Small Negative A Nitrite, UA (test code = 5802-4) Negative Negative Urobilinogen, UA (test code = <2.0 <2.0 91663-0) Leukocyte esterase, UA (test code = Negative Negative 5799-2) Epithelial cells, UA (test code = <1 /HPF 5787-7) WBC, UA (test code = 5821-4) None seen 0- 4 /HPF RBC, UA (test code = 28365-4) 2 0- 5 /HPF Bacteria, UA (test code = 02555-8) Few None seen Granular casts, UA (test code = 1 0- 1 /LPF 5793-5) Hyaline casts, UA (test code = 1 /LPF 5796-8) Yeast, UA (test code = 31582-7) None seen Yeast with pseudohyphae, UA (test None seen code = 97292-0) Lab Interpretation (test code = Abnormal 99734-9) Ramsey MethodistCreatine kinase, total (CPK)2019-08-09 06:37:57 Test Item Value Reference Range Interpretation Comments Creatine kinase (test code = 2157-6) 42 U/L 26-192 Ramsey VnzecxptvU-itgeu4227-29-20 05:56:05 Test Item Value Reference Range Interpretation Comments D-dimer (test code = 2.05 0.00- 0.40 ug/mL H Uni ts are ug/ml 98314-2) FEU Fibrinogen Equivalent Unit .When combined with [...] malignancies. Lab Interpretation Abnormal (test code = 45186-0) Ramsey MethodistVenous blood frg6970-56-25 05:34:02 Test Item Value Reference Range Interpretation Comments [...] (test code = 20.2 mmol/L 21-28 L 23935-3) Lab Interpretation (test code = Abnormal 77782-7) Ramsey LizetteistKappa lambda free light chain with ephzh2559-63-27 02:34:26 Test Item Value Reference Range Interpretation Comments Holmen light chain (test code = 164.45 mg/L 3.3-19.4 H 44252-9) Lambda light chain (test code = 95.70 mg/L 5.7-26.3 H 83670-2) Holmen lambda ratio (test code = 1.72 0.26-1.65 H 06013-9) Lab Interpretation (test code = Abnormal 12124-2) Ramsey MethodistLactic acid bwiqw2359-29-99 01:03:49 Test Item Value Reference Range Interpretation Comments Lactic acid (test code = 12009-2) 0.8 mmol/L 0.5-2.2 Ramsey MethodistUs carotid dnjhij3018-49-04 00:28:00Interface, Radiology Results In - 08/09/2019 12:28 AM [facility] Vascular Ultrasound Laboratory Carotid Artery Duplex [address] [place] [address] For clinical quality assurance associate purposes, the categorization of the degree of the stenosis of this exam is based on criteria described in the IAC carotid stenosis grading white paper( www.intersocietal.org/Vascular) and Marlyn Christian, Trenton Quach, et al. Carotid artery stenosis: romano-scale and Doppler US diagnosis--Society of Radiologists in Ultrasound Consensus Conference. Radiology. 2003 Nov; 229(2):340-6. Pat.Name: SEAN MOULTON Pat.ID: [id number] .Date: 08/08/2019 Refer.MD: EMILY ULLOA MD Exam Time: 8:33:00 PM Study Type:Carotid Age: 7 1940,79Y Sex: FEMALE Sonogrphr: ADALI Thakur, JEVON Pat. Stat.:Inpatient Room: [place] [address] Tape Vol: , CPT - 4: 94690 Echo Event ID:[id number] Order ID: [id number] Reason for Study:Dizziness. History of CKD, PVD, [...] PSV 1.43 Signed 12:28 Jaron Atkinson MD, [facility] MethodistEchocardiogram complete w contrast and 3D if clduum2146-24-10 22:43:00Interface, Radiology Results In - 08/08/2019 10:43 PM EXCAVATOR OPERATOR Echocardiography Report [id number] [address] Pat.Name: SEAN MOULTON Pat.ID: [id number].Date: 08/08/2019 Refer.MD: EMILY ULLOA MD Exam Time: 12:19:00 AM Study Type:Routine Echo Height: 58in Weight: 106lb BSA: 1.39 m2 Age: 7 1940,79Y Sex: FEMALE BP: 168/77 HR: 70 bpm Sonogrphr: JEVON [place], RVT Pat. Stat.:Inpatient Room: ED-20 CPT - 4: 70588, 40614, 83591 Study Status:Final Echo Event ID:[id number] Order ID: [id number] Reason for Study:SOB Procedures: 2D Echo, 2D Echo, Colorflow Doppler, PortableRace: C SUMMARY:------- LV size is ucao-ou-puvyrwchbw enlarged. LV EF is moderately toseverely depressed.Regional wall motion abnormalities present. Estimated EF is 30-34%.Pleural effusion is present.LV filling pressure is borderline elevated.Estimated PA systolic pressure is 33-38 mmHg, assuminga mean RAP of0-5 mmHg. FINDINGS: ------LV: LV size is boqw-ia-beuobguuvm enlarged. LV EF is moderately to severely [...] RAP of 0-5 mmHg. -MEASUREMENTS: 2DParasternal Long [place] Ao An 1.7 cm LVPWd 0.67 cm [...] Index = 1.7Signed 08/08/2019 10:43 PMDilan Mcpherson M.D.[facility] [id number] 18:33:43Hm Interface, Radiology Results 08/08/2019 6:36 PM CSTEXAMINATION: [...] No stones or hydronephrosis on either side. [facility]-IM21OOZWRmkjpbl MethodistUrinalysis screen and microscopy, with reflex to [id number] 17:26:59 Test Item Value Reference Range Interpretation Comments Specimen site (test code = Clean catch 3123632) Color, UA (test code = 5778-6) Straw Appearance, UA (test code = Hazy 5767-9) Specific gravity, UA (test code = 1.006 1.001-1.035 5811-5) pH, UA (test code = 5803-2) 5.0 5.0-8.5 Protein, UA (test code = 63147-7) 2+ Negative A Glucose, UA (test code = 10081-6) 3+ Negative A Ketones, UA (test code = 2514-8) Negative Negative Bilirubin, UA (test code = Negative Negative 5770-3) Blood, UA (test code = 5794-3) Moderate Negative A Nitrite, UA (test code = 5802-4) Negative Negative Urobilinogen, UA (test code = <2.0 <2.0 87473-7) Leukocyte esterase, UA (test code Negative Negative = 5799-2) WBC, UA (test code = 5821-4) 10 0- 4 /HPF H RBC, UA (test code = 07851-7) 6 0- 5 /HPF H Bacteria, UA (test code = Few None seen 00347-3) Yeast, UA (test code = 67189-8) None seen Yeast with pseudohyphae, UA (test None seen code = 91862-5) Amorphous crystals (test code = Few 71481-5) Granular casts, UA (test code = 3 0- 1 /LPF H 5793-5) Lab Interpretation (test code = Abnormal 23977-2) Bai MethodistCreatinine level, urine, [id number] 17:08:02 Test Item Value Reference Range Interpretation Comments Creatinine, urine, random (test code 23 mg/dL = 73547-8) [facility] MethodistProtein, urine, [id number] 17:08:02 Test Item Value Reference Range Interpretation Comments Protein, urine random (test code = 153 mg/dL 2888-6) [facility] MethodistUrea nitrogen, urine, [id number] 17:08:02 Test Item Value Reference Range Interpretation Comments Urea nitrogen, urine, random (test 184 mg/dL code = 3095-7) [facility] MethodistSodium level, urine, [id number] 17:08:01 Test Item Value Reference Range Interpretation Comments Sodium, urine, random (test code = 109 mEq/L 29523-2) [facility] MethodistHemoglobin [id number] 08:56:39 Test Item Value Reference Range Interpretation Comments Hemoglobin A1C (test 8.3 % 4-5.6 H HbA1c c utoffs for code = 70444-1) diagnosing diabetes:4.0% - 5.6% = normal5.7% - 6.4% = increased risk for diabetes (prediabetes)9> =6.5% = iozeygah6Oukr s for glycemic contro l (ADA 2016)< 7.0% Ta rget for non adults with miguel betes. More or less stringent targe ts may be appropriate for individual kasey ents. <7.5% Target for Children and adolescents wit h type 1 diabetes. Lab Interpretation (test Abnormal code = 61057-3) Bai [id number] 05:06:08 Test Item Value Reference Range Interpretation Comments Troponin (test code = 0.075 ng/mL 0-0.04 H In pat ients 09327-2) suspected of nguyễn ving a myocardial infarction, [...] L Lab Interpretation Abnormal (test code = 42587-8) [facility]Com[facility] [id number] 03:22:26 Test Item Value Reference Range Interpretation Comments Sodium (test code = 140 135- 148 mEq/L 2951-2) Potassium (test code = 4.7 3.5- 5.0 mEq/L 2823-3) Chloride (test code = 109 98- 112 mEq/L 2074-0) CO2 (test code = 2028-02) 16 24- 31 mEq/L L Anion gap (test code = 15@ANIO 7- 15 mEq/L 37162-1) BUN (test code = 3094-0) 67 mg/dL 8-23 H Creatinine (test code = 4.80 mg/dL 0.5-0.9 H 2160-0) Glucose (test code = 180 mg/dL 65-99 H 2345-7) Calcium (test code = 7.9 mg/dL 8.8-10.2 L 10759-6) Protein (test code = 6.0 g/dL 6.3-8.3 L 9994.6-7.0 2885-2) g/dL1 hrog0182.4-7.6 g/dL7 months-7jkac829 .1- 7.3 g/dL1-2 lnbxe494.6-7.5 g/dL>3 xorvu157.0-8.0 g/jT00-1107584. 3-8 .3 g/dL Albumin (test code = 2.1 g/dL 3.5-5 L 1751-7) A/G ratio (test code = 0.5 0.7-3.8 L 1759-0) Alkaline phosphatase 58 U/L 35-104 (test code = 6768-6) AST (test code = 1920-8) 19 U/L 10-35 ALT (test code = 1742-6) 12 U/L 5-50 Total bilirubin (test <0.2 0-1.2 code = 1974-) Lab Interpretation (test Abnormal code = 15087-5) [facility] MethodistT4, [id number] 02:41:26 Test Item Value Reference Range Interpretation Comments T4, free (test code = 3024-7) 1.3 ng/dL 0.9-1.7 [facility] MethodistThyroid stimulating [id number] 02:41:26 Test Item Value Reference Range Interpretation Comments TSH (test code = 3016-3) 4.68 0.27- 4.20 uIU/mL H Lab Interpretation (test code = Abnormal 68561-7) [facility] MethodistLipid [id number] 02:36:45 Test Item Value Reference Interpretation Comments Range Cholesterol (test 259 mg/dL <200 H code = 2092-3) Triglycerides (test 179 mg/dL <150 H code = 1-8) HDL cholesterol 48 mg/dL >40 (test code = 2084-9) LDL cholesterol 188 mg/dL <100 H Result obtai justino by direct (test code = 2088-1) LDL joslyn surement Lipid panel SeeBelow Total Cholester ol (mg/dL) interpretation (test < 200 code = 65309-7) Desirable 200-239 Borderline -high >=240 Hi gh [...] mg/dL) Lab Interpretation Abnormal (test code = 45511-8) [facility] hospitalCRITICAL [id number] 20:33:40SGabino alexander MD 08/08/2019 1:39 PMCritical CarePerformed by: Gabino Feliz MDAuthorized by: Gabino Feliz MD Critical care provider [...] of patient's condition and review of old chartsRamsey MethodistLipase [id number] 19:20:04 Test Item Value Reference Range Interpretation Comments Lipase (test code = 3040-3) 87 U/L 13-60 H Lab Interpretation (test code = Abnormal 29893-7) Richardson MethodistAmylase [id number] 19:20:02 Test Item Value Reference Range Interpretation Comments Amylase (test code = 1798-8) 100 U/L 28-100 Richardson Amin
--- NOTE | 2020-04-03 23:49 | ER ---
Nurse's Notes [facility] Name: Aury Garcia Age: 80 yrs Sex: Female : 1940 Arrival Date: 04/03/2020 Time: 21:11 Bed 15 Private MD: Diagnosis: Cutaneous abscess of left lower limb Presentation: 04/03 22:17 Chief complaint: Pt C/O left calf pain from wound, family unsure when it started. wh Family denies fever or any other symptoms. Coronavirus screen: Client denies travel out of the [place] in the last 14 days. At this time, the client does not indicate any symptoms associated with coronavirus-19. Ebola Screen: Patient negative for fever greater than or equal to 101.5 degrees Fahrenheit, and additional compatible Ebola Virus Disease symptoms Patient denies exposure to infectious person. Initial Sepsis Screen: Does the patient meet any 2 criteria? No. Patient's initial sepsis screen is negative. Does the patient have a suspected source of infection? Yes: Skin breakdown/wound. Risk Assessment: Do you want to hurt yourself or someone else? Patient reports no desire to harm self or others. Onset of symptoms is unknown. 22:17 Method Of Arrival: Wheelchair 22:17 Acuity: JOSE 3 Historical: - Allergies: 22:19 Codeine; 22:19 Tramadol HCl; wh - PMHx: 22:19 chronic kidney disease; CVA; Dementia; Diabetes - IDDM; Dialysis; Hyperlipidemia; Hypertension; Hypothyroidism; TIA; - Immunization history:: Adult Immunizations not up to date. - Social history:: Smoking status: Patient/guardian denies using. Screenin:21 Abuse screen: Denies threats or abuse. Denies injuries from another. Nutritional screening: No deficits noted. Tuberculosis screening: No symptoms or risk factors identified. Fall Risk Secondary diagnosis (15 points) dementia. Assessment: 22:19 General: Appears in no apparent distress. Behavior is cooperative. Pain: Complains of pain in left calf Pain currently is 7 out of 10 on a pain scale. Pain began unknown. Neuro: Level of Consciousness is awake, alert, obeys commands, Oriented to person, place. Neuro: Oriented to time. Cardiovascular: Capillary refill < 3 seconds. Cardiovascular: Dialysis shunt: in the anterior aspect of right upper chest. Respiratory: Airway is patent Respiratory effort is even, unlabored, Respiratory pattern is regular, symmetrical. GI: Abdomen is flat, non-distended. : No signs and/or symptoms were reported regarding the genitourinary system. EENT: No signs and/or symptoms were reported regarding the EENT system. Derm: Wound noted left calf. Musculoskeletal: Circulation, motion, and sensation intact. 04/04 00:00 Reassessment: Patient appears in no apparent distress at this time. No changes from previously documented assessment. Patient and/or family updated on plan of care and expected duration. Pain level reassessed. Patient is alert, oriented x 3, equal unlabored respirations, skin warm/dry/pink. Vital Signs: 04/03 22:17 BP 170 / 61; Pulse 68; Resp 18; Temp 99.1; Pulse Ox 100% ; Weight 43.09 kg; Height 4 ft. 8 in. (142.24 cm); Pain 7/10; 04/04 00:00 BP 166 / 51; Pulse 74; Resp 18; Pulse Ox 100% on R/A; 04/03 22:17 Body Mass Index 21.30 (43.09 kg, 142.24 cm) ED Course: 04/03 21:11 Patient arrived in ED. cl3 22:11 Mary Ann Abrams is Primary Nurse. 22:19 Triage completed. 22:22 Arm band placed on right wrist. 22:22 Patient has correct armband on for positive identification. Bed in low position. Call light in reach. Side rails up X 1. Adult w/ patient. Pulse ox on. NIBP on. 22:24 Doc Sullivan PA is PHCP. [facility] 22:24 Rahat Alexander MD is Attending Physician. [facility] 23:42 Assist provider with I \T\ D: of an abscess on left calf Set up I\T\D tray. Performed by Doc VU Dressing with Neosporin and 4X4s, Patient tolerated well. Patient did not have IV access during this emergency room visit. Administered Medications: 23:25 Drug: Lidocaine (1 %) 5 mg {Note: Administered by Provider.} Route: Infiltration; 23:59 Drug: Bactrim (160 mg-800 mg (DS) 1 tablet Route: PO; 04/04 00:15 Follow up: Response: No adverse reaction Outcome: 04/03 23:48 Discharge ordered by . liz 04/04 00:14 Discharged to home via wheelchair, with family. Condition: stable Discharge instructions given to patient, family, Instructed on discharge instructions, follow up and referral plans. medication usage, wound care, Demonstrated understanding of instructions, follow-up care, medications, wound care, Prescriptions given X 1. 00:16 Patient left the ED. Signatures: Doc Sullivan PA PA jmm [place], Winsy wh Lewis, Charde cl3
--- NOTE | 2020-04-03 23:49 | EDPHYS ---
Physician Documentation [facility] Name: Aury Garcia Age: 80 yrs Sex: Female : 1940 Arrival Date: 04/03/2020 Time: 21:11 Bed 15 Private MD: ED Physician Rahat Alexander HPI: 04/03 22:33 This 80 yrs old Female presents to ER via Wheelchair with complaints of Leg jmm Pain, Leg Swelling. 22:33 The patient presents with pain, swelling. Onset: The symptoms/episode began/occurred jmm gradually, 3 week(s) ago. Modifying factors: The symptoms are alleviated by nothing. the symptoms are aggravated by movement. Associated signs and symptoms: Pertinent negatives fever. This is a 80 year old female with a history of ESRD, CVA, dementia that presents to the ED with complaints of swelling to the left calf. Denies fever or drainage. . Historical: - Allergies: 22:19 Codeine; wh 22:19 Tramadol HCl; wh - PMHx: 22:19 chronic kidney disease; CVA; Dementia; Diabetes - IDDM; Dialysis; Hyperlipidemia; Hypertension; Hypothyroidism; TIA; - Immunization history:: Adult Immunizations not up to date. - Social history:: Smoking status: Patient/guardian denies using. ROS: 22:33 Constitutional: Negative for fever, chills, and weight loss, Cardiovascular: Negative jmm for chest pain, palpitations, and edema, Respiratory: Negative for shortness of breath, cough, wheezing, and pleuritic chest pain. 22:33 MS/extremity: Positive for swelling. 22:33 All other systems are negative. Exam: 22:33 Constitutional: This is a well developed, well nourished patient who is awake, alert, jmm and in no acute distress. Head/Face: atraumatic. Eyes: EOMI, no conjunctival erythema appreciated ENT: Moist Mucus Membranes Neck: Trachea midline, Supple Chest/axilla: Normal chest wall appearance and motion. Cardiovascular: Regular rate and rhythm. No edema appreciated Respiratory: Normal respirations, no respiratory distress appreciated Abdomen/GI: Non distended, soft Back: Normal ROM 22:33 Musculoskeletal/extremity: ROM: intact in all extremities. 22:33 Skin: abscess noted to the left claf. 22:33 Neuro: Motor: is normal. 22:33 Psych: Behavior/mood is pleasant, cooperative, anxious. Vital Signs: 22:17 BP 170 / 61; Pulse 68; Resp 18; Temp 99.1; Pulse Ox 100% ; Weight 43.09 kg; Height 4 wh ft. 8 in. (142.24 cm); Pain 7/10; 04/04 00:00 BP 166 / 51; Pulse 74; Resp 18; Pulse Ox 100% on R/A; wh 04/03 22:17 Body Mass Index 21.30 (43.09 kg, 142.24 cm) Procedures: 04/03 23:46 I \T\ D: Incision and drainage was performed for an abscess of the left calf Prepped with [facility] Betadine, Anesthetized with 5 ml's 1% Lidocaine. Incised with #11 blade. Drained moderate amount purulent fluid. Dressing: sterile 4x4 gauze, the patient tolerated the procedure well. MDM: 22:33 Patient medically screened. [facility] 23:47 Data reviewed: vital signs, nurses notes. Counseling: I had a detailed discussion with [facility] the patient and/or guardian regarding: the historical points, exam findings, and any diagnostic results supporting the discharge/admit diagnosis, the need for outpatient follow up, to return to the emergency department if symptoms worsen or persist or if there are any questions or concerns that arise at home. ED course: Patient is advised to follow up with pcp for reevaluation. Patient is otherwise given strict return precautions. Patient understood and agrees with the plan of care. . 04/03 23:04 Order name: Incision \T\ Drainage Setup; Complete Time: 23:11 [facility] Administered Medications: 23:25 Drug: Lidocaine (1 %) 5 mg {Note: Administered by Provider.} Route: Infiltration; 23:59 Drug: Bactrim (160 mg-800 mg (DS) 1 tablet Route: PO; 04/04 00:15 Follow up: Response: No adverse reaction Disposition: 04/03/20 23:48 Discharged to Home. Impression: Cutaneous abscess of left lower limb. - Condition is Stable. - Discharge Instructions: Incision and Drainage, Incision and Drainage, Care After. - Prescriptions for Bactrim DS 800- 160 mg Oral Tablet - take 1 tablet by ORAL route every 12 hours for 10 days; 20 tablet. - Medication Reconciliation Form, Thank You Letter, Antibiotic Education, Prescription Opioid Use form. - Follow up: Private Physician; When: 2 - 3 days; Reason: Recheck today's complaints, Continuance of care, Re-evaluation by your physician. Addendum: 04/05/2020 13:11 Co-signature as Attending Physician, Rahat Alexander MD I agree with the assessment and c nguyễn plan of care. Signatures: Rahat Alexander MD MD cha Mickail, Joel, PA PA jm Mary Ann Abrams Corrections: (The following items were deleted from the chart) 04/04 00:16 04/03 23:48 04/03/2020 23:48 Discharged to Home. Impression: Cutaneous abscess of left lower limb. Condition is Stable. Forms are Medication Reconciliation Form, Thank You Letter, Antibiotic Education, Prescription Opioid Use. Follow up: Private Physician; When: 2 - 3 days; Reason: Recheck today's complaints, Continuance of care, Re-evaluation by your physician. liz
[2020-04-04] MEDS ORDERED: SMZ./TMP. 800/160 MG TABLET ONE (00:07)
[2020-04-04 00:38] VITALS: TEMP 99.1; O2SAT 100
[2020-04-04 00:40] VITALS: BP 166/51
== END 2020-04-04 00:16 | disposition home or self-care (01) ==
LOC: ER 21:09
PROC: 0J9P0ZZ Drainage of Left Lower Leg Subcutaneous Tissue and Fascia, Open Approach (ICD-10-PCS; principal; 2020-04-04)
DX: L02.416 Cutaneous abscess of left lower limb (principal); E11.22 Type 2 diabetes mellitus with diabetic chronic kidney disease; I12.0 Hypertensive chronic kidney disease with stage 5 chronic kidney disease or end stage renal disease; N18.6 End stage renal disease; Z99.2 Dependence on renal dialysis; Z88.5 Allergy status to narcotic agent; Z88.6 Allergy status to analgesic agent
CPT/HCPCS: 99284

== ENCOUNTER 2020-04-26 19:10 | Inpatient (IN) | payer OTHER ==
--- OUTSIDE RECORDS SUMMARY | 2020-04-26 19:15 | XMS REPORT | Clinical Summary ---
:1940 Author Organization [facility] Address [address] [place] [address] Care Team Providers Name Role Phone Pcp [...] Gastroenterology Rich Alvarez MD Ahmmed, Elizabeth Hunter, INTERACTIVE ACCOUNT MANAGER 09/27/2019 Surgery Gastroenterology Dai LevineOSC ISELA Fry MD 09/26/2019 Travel 09/25/2019 [facility] Internal [facility] Gastroint tinal hemorrhage with melena; - Encounter Medicine MD Marc ESRD on hemodialysis (FORMERLY [facility]); 10/03/2019 Gadicherla, Essential hyper tension; Belle Anemia due to c hronic kidney disease, on chronic dialysis (FORMERLY [facility]); MD Jared Hypokalemia; , Type 1 diabetes mellitus with chronic kidney disease on chronic dialysis (FORM[facility]LY [facility]); MD Giles Malnutrition, unspecified type (FORM[facility]LY [facility]); Jacinto, Closed fracture of hip, unspecified laterality, initial encounter (FORM[facility]LY [facility]); Ciara Barry, Hypertension, unspecified type; Anemia, unspeci fied type; ESRD (end stage renal disease) on dialysis (HCC); Gastrointestina l hemorrhage, unspecified gastrointestinal hemorrhage type 09/25/2019 Telephone Gastroenterology Dai Levine MD after 04/26/2019 Social History Tobacco Use Types Packs/Day Years [...] 09/27/2019 9:00 AM CDT Plan of Treatment Health Maintenance Due Date Last Done Comments DIABETIC EYE EXAM 01/12/1950 DIABETIC FOOT EXAM 01/12/1950 URINE MICROALBUMIN 01/12/1952 PNEUMOCOCCAL 65+ YRS (2 of 2 - PPSV23) 2007 8 Medicare IPPE (WELCOME TO MEDICARE) 06/20/2019 INFLUENZA VACCINE (#1) 2020 03/01/2018, 03/10/2017 HEMOGLOBIN A1C 03/27/2020 09/26/2019 Procedures Procedure Name Priority Date/Time Associated Diagnosis [...] are i n the results section. after 04/26/2019 Results TRANSFUSION SERVICE REPORT - SCAN (10/04/2019 [...] ABO O Pos SAFETRACE TX UNIT NUMBER [id number] SAFETRACE TX Status TX_TIMEINCHART SAFETRACE TX Blood Bank Product RED BLOOD CELLS SAFETRACE [place] PRODUCT CODE [id number] [place] Specimen Other Performing Organization Address City/[facility]/Zipcode Phone Number SAFETRACE [place] POC-Glucose meter (10/03/2019 4:47 PM CDT)Only the most recent of34 results within the time period is included. POC-Glucose Meter 81Comment: : 70 - 110 mg/dL [facility] TESTED AT [address], [address]: Vice President Of Software Development/Technic tristin ID = [id number] for [facility] Specimen Blood Performing Organization Address City/[facility]/Zipcode Phone Number [address] [phone] CENTER CBC with platelet count + automated diff (10/03/2019 6:01 AM CDT)Only the most recent of8 resultswithin the time period is included. Pathologist Sig nature WBC 4.5 3.5 - 10.5 [facility] K/L [facility] RBC 2.92 (L) 3.93 - 5.22 [facility] M/L [facility] Hemoglobin 8.3 (L) 11.2 - 15.7 [facility] GM/DL [facility] Hematocrit 25.7 (L) 34.1 - 44.9 % [facility] MCV 88.0 79.4 - 94.8 fL [facility] MCH 28.4 25.6 - 32.2 pg [facility] MCHC 32.3 32.2 - 35.5 [facility] GM/DL [facility] RDW 14.6 (H) 11.7 - 14.4 % [facility] Platelets 226 150 - 450 K/CU [facility] MM [facility] MPV 9.7 9.4 - 12.3 fL [facility] nRBC 0 0 - 0 /100 WBC [facility] % Neutros 69 % [facility] % Lymphs 21 % [facility] % Monos 7 % [facility] % Eos 2 % [facility] % Baso 1 % [facility] # Neutros 3.10 1.56 - 6.13 [facility] # Lymphs 0.93 (L) 1.18 - 3.74 [facility] # Monos 0.32 0.24 - 0.36 [facility] # Eos 0.07 0.04 - 0.36 [facility] # Baso 0.04 0.01 - 0.08 [facility] Immature 0 0 - 1 % [facility] Granulocytes-Relative [facility] Specimen Blood Performing Organization Address City/State/Zipcode Phone Number [facility] [address] [place] [address] CENTER Basic Metabolic Panel (10/03/2019 6:01 AM CDT)Only the most recent of6 results within the time period is included. Sodium 139 136 - 145 meq/L [facility] Potassium 3.6 3.5 - 5.1 meq/L [facility] Chloride 105 98 - 107 meq/L [facility] CO2 25 22 - 29 meq/L [facility] BUN 18 7 - 21 mg/dL [facility] Creatinine 3.59 (H) 0.57 - 1.25 [facility] mg/dL [facility] Glucose 74 70 - 105 mg/dL [facility] Calcium 7.4 (L) 8.4 - 10.2 [facility] mg/dL [facility] EGFR 12Comment: ESTIMATED mL/min/1.73 sq [facility] GFR IS NOT m [facility] ACCURATE [place] CREATININE CLEARANCE IN PREDICTING GLOMERULAR FILTRATION RATE. ESTIMATED GFR IS NOT APPLICABLE FOR DIALYSIS PATIENTS. Specimen Blood Narrative Performed At Vice President Of Software Development ID - PIAYA L [facility] Performing Organization Address [facility] Hospital[facility] Phone Number [address] [address] CENTER Transfuse Leuko-Red RBC (10/03/2019 1:35 AM CDT)Only the most recent of2 resultswithin the time period is included.Type and screen, automated (10/02/2019 6:44 PM CDT)Only the most recent of2 resultswithin the time period is included. Pathologist Sig nature ABO/RH AUTOMATED O POSITIVE [facility] Ab Scrn NEGATIVE [facility] Specimen Blood Performing Organization Address [facility] Hospital[facility] Phone Number [address] [address] Hemoglobin and hematocrit (09/29/2019 6:11 PM CDT) Pathologist Sig nature Hemoglobin 8.5 (L) 11.2 - 15.7 GM/DL [facility] Hematocrit 26.9 (L) 34.1 - 44.9 % [facility] Specimen Blood Narrative Performed At Vice President Of Software Development ID - [id number] [facility] Performing Organization Address [facility] Phone Number [facility] [address] [place] [address] [place] Prothrombin time/INR (09/28/2019 4:10 AM CDT)Only the most recent of4 results within the time period is included. Pathologist Sig nature Protime 14.4 (H) 11.9 - 14.2 seconds [facility] INR 1.2 <=5.9 [facility] Specimen Blood Narrative Performed At Effective 11/15/2018: PT Reference Range [facility] Change New: 11.9-14.2 Previous: 11.7-14.7 RECOMMENDED COUMADIN/WARFARIN INR THERAPY RANGES STANDARD DOSE: 2.0-3.0 Includes: PROPHYLAXIS for venous thrombosis, systemic embolization; TREATMENT for venous thrombosis and/or pulmonary embolus. HIGH RISK: Target INR is 2.5-3.5 for patients wiht mechanical heart valves. Performing Organization Address City/[facility] Hospital[facility] Phone Number [facility] [address] [place] [address] [place] Hepatic function panel (09/28/2019 4:10 AM CDT)Only the most recent of3 results within the time period is included. Pathologist Sig nature Protein, Total 5.5 (L) 6.0 - 8.3 gm/dL [facility] Albumin 2.5 (L) 3.5 - 5.0 g/dL [facility] Total Bilirubin 0.5 0.2 - 1.2 mg/dL [facility] Bilirubin, Direct 0.4 0.1 - 0.5 mg/dL [facility] Alkaline Phosphatase 71 40 - 150 U/L [facility] AST 20 5 - 34 U/L [facility] ALT <6 (L) 6 - 55 U/L [facility] Specimen Blood Narrative Performed At Vice President Of Software Development VIELKA - MARCELO Snachez [facility] CENTER Performing Organization Address City/State/Zipcode Phone Number [facility] [address] [place] [address] CENTER ECHOCARDIOGRAM REPORT - SCAN (09/27/2019 9:10 PM CDT) Narrative Performed At This result has an attachment that is no t available. REPORT OF PROCEDURE - ENDOSCOPY URL (09/27/2019 2:41 PM CDT) Narrative Performed At This result has an attachment that is no t available. 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 Mary Murillo RD CS Interpreting [place] Guillaume [...] Study 09/27/2019 HARMEET Gender Female Visit Number [id number] Race [place] [address] Number Date of 1940 Referr paul Barry Physic tristin Casey MD Age 79 year(s) Sonogr apher Mary Murillo CS Interp reting MD James Bonilla Fellow Joanna [...] TR Gradient: 28.37 mmHg Performing Organization Address [facility] Phone Number [facility] Phosphorus (09/27/2019 4:26 AM CDT) Pathologist Sig nature Phosphorus 2.6 2.3 - 4.7 mg/dL [facility] Specimen Blood Narrative Performed At Vice President Of Software Development ID - JB L [facility] Performing Organization Address [facility] [address] [place] Hepatitis B surface antigen (09/26/2019 8:52 AM CDT) Pathologist Sig nature HBsAg Screen Nonreactive Nonreactive [facility] Specimen Blood Narrative Performed At Vice President Of Software Development ID - HANNAH [place] [facility] Performing Organization Address [facility] [address] [place] Magnesium (09/26/2019 8:52 AM CDT) Pathologist Sig nature Magnesium 2.0 1.6 - 2.6 mg/dL [facility] Specimen Blood Narrative Performed At Vice President Of Software Development ID - HANNAH [place] [facility] Performing Organization Address [facility] [place] [address] [place] XR hip 2 views left (09/26/2019 4:45 AM CDT) Specimen Narrative Performed At FINAL REPORT [facility] CLINICAL HISTORY: "Fracture" COMPARISON: None. FINDINGS: 2 [...] Date/Time: 09/26/2019 0 5:18:36 Performing Organization Address [facility] Phone Number [facility]IS Vitamin B12 and Folate (09/26/2019 4:09 AM CDT) Pathologist Sig nature Vitamin B12 1,334 (H) 213 - 816 pg/mL [facility] Folate 6.40 (L) >=7.00 ng/mL [facility] Specimen Blood Narrative Performed At Vice President Of Software Development ID - [facility] Performing Organization Address [facility] Phone Number [address] [address] CENTER Iron, TIBC, % sat. (without ferritin) (09/26/2019 4:09 AM CDT) Pathologist Sig nature Iron 16.0 (L) 40.0 - 160.0 [facility] ug/dL [facility] TIBC 119 (L) 250 - 450 ug/dL [facility] Iron % Saturation 13 (L) 20 - 55 % [facility] Specimen Blood Narrative Performed At Vice President Of Software Development ID - [facility] Performing Organization Address [facility] Phone Number [address] [address] CENTER Ferritin (09/26/2019 4:09 AM CDT) Pathologist Sig nature Ferritin 1,973.82 (H) 5.00 - 275.00 [facility] ng/mL [facility] Specimen Blood Narrative Performed At Vice President Of Software Development ID - MINH Contreras [facility] Performing Organization Address [facility] Phone Number [address] [address] CENTER ABORH, manual (09/26/2019 2:07 AM CDT) Pathologist Sig nature ABO Grouping O [facility] [place] Rh Factor POS [facility] Specimen Blood Performing Organization Address [facility] Phone Number [address] [address] Blood Culture - Routine (Right Venipuncture) (09/26/2019 2:07 AM CDT) Pathologist Sig nature Result No growth in 5 days [facility] Specimen Blood - Entire right upper arm (body str ucture) Performing Organization Address [facility] Phone Number [address] [address] [place] Hemoglobin A1c (09/26/2019 1:33 AM CDT) Pathologist Sig nature Hemoglobin A1C 5.6 4.3 - 6.1 % [facility] Specimen Blood Performing Organization Address City/[facility] Phone Number [address] [address] [place] Comprehensive metabolic panel (09/25/2019 10:27 PM CDT) Protein, Total 6.0 6.0 - 8.3 [facility] gm/dL [facility] Albumin 2.8 (L) 3.5 - 5.0 [facility] g/dL [facility] Alkaline 88 40 - 150 U/L [facility] Phosphatase [facility] Total Bilirubin 0.5 0.2 - 1.2 [facility] mg/dL [facility] Sodium 134 (L) 136 - 145 [facility] meq/L [facility] Potassium 3.1 (L) 3.5 - 5.1 [facility] meq/L [facility] Chloride 101 98 - 107 [facility] meq/L [facility] CO2 19 (L) 22 - 29 meq/L [facility] BUN 45 (H) 7 - 21 mg/dL [facility] Creatinine 5.17 (H) 0.57 - 1.25 [facility] mg/dL [facility] Glucose 77 70 - 105 [facility] mg/dL [facility] Calcium 7.6 (L) 8.4 - 10.2 [facility] mg/dL [facility] AST 20 5 - 34 U/L [facility] ALT <6 (L) 6 - 55 U/L [facility] EGFR 8Comment: mL/min/1.73 [facility] ESTIMATED GFR IS sq [facility] NOT ACCURATE [facility] CREATININE CLEARANCE IN PREDICTING GLOMERULAR FILTRATION RATE. ESTIMATED GFR IS NOT APPLICABLE FOR DIALYSIS PATIENTS. Specimen Blood Narrative Performed At Vice President Of Software Development ID - BS [facility] CENTER Performing Organization Address City/State/Zipcode Phone Number [facility] [address] [place] [address] CENTER after 04/26/2019 Insurance Payer Benefit Plan / Subscriber ID Effective Phone Address T ype Group Dates HUMANA - HUMANA [id number] 2019-Prese Maps Contracted MEDICARE MGD MEDICARE ADV nt CARE Advance Directives For more information, please contact: [phone] Code Status Date Activated Date Inactivated Comments Full Code 09/25/2019 10:39 PM 10/03/2019 7:33 PM This code status was determined by: Patient
--- OUTSIDE RECORDS SUMMARY | 2020-04-26 19:15 | XMS REPORT | Clinical Summary ---
:1940 Author Organization [facility] Address [address] [place] [address] Care Team Providers Name Role Phone Srinivasan [...] hyperglycemia, with long-term current use of insulin ([facility]) blood-glucose meter Use as 1 each 0 08/27/19 Active kitIndications: Type 2 instructed 20 021 diabetes mellitus with hyperglycemia, with long-term current use of insulin ([facility]) lancets Use one 200 each 3 08/29/19 Active miscIndications: Type 2 lancet two 20 diabetes mellitus with times a day hyperglycemia, with for glucose long-term current use of insulin ([facility]) blood sugar diagnostic Use one test 200 strip 3 10/08/19 Active strips (glucose blood) strip two 20 strip test times daily stripsIndications: Type for blood 2 diabetes mellitus sugar with hyperglycemia, with long-term current use of insulin ([facility]) levothyroxine Take 1 tablet 90 tablet 3 10/16/19 Ac tive (SYNTHROID) 50 mcg (50 mcg 20 tabletIndications: total) by Hypothyroidism, mouth daily. unspecified type pentoxifylline TAKE 1 TABLET 180 tablet 3 10/16/19 Active (TRENTal) 400 mg CR BY MOUTH 20 tabletIndications: PAD TWICE A DAY (peripheral artery disease) ([facility]) clotrimazole-betamethas Apply 45 g 2 01/04/20 Active one (Lotrisone) 1-0.05 topically 2 20 021 % creamIndications: (two) times a Dermatitis day. hydrALAZINE Take 1 tablet 90 tablet 11 04/24/20 Acti ve (APRESOLINE) 25 MG (25 mg total) 20 021 tabletIndications: by mouth 3 Essential hypertension (three) times a day. insulin detemir Inject 25 0 Disc [...] hyperglycemia, with long-term current use of insulin ([facility]) pentoxifylline 1 tablet 2x a 180 tablet 3 04/26/20 Discontinued (TRENTal) 400 mg CR day for 90 18 020 tabletIndications: PAD days (peripheral artery disease) ([facility]) lisinopril Take 1 tablet 30 tablet 11 09/14/19 Disco ntinued (PRINIVIL,ZESTRIL) 40 (40 mg total) 19 020 (Stop Taking at mg tabletIndications: by mouth Discharge) Essential hypertension daily. hydroCHLOROthiazide Take 1 tablet 30 tablet 11 09/14/19 Discontinued (HYDRODIURIL) 12.5 MG (12.5 mg (Stop Taking at tabletIndications: total) by Eve mccoy) Essential hypertension mouth daily. blood-glucose meter Use as 1 each 0 12/29/19 Discontinued kitIndications: Type 2 instructed (Reorder) diabetes mellitus with hyperglycemia, with long-term current use of insulin ([facility]) blood sugar diagnostic Use one test 200 strip 3 12/29/1908/19 Discontinued strips (FREESTYLE LITE strip two (Stop Taking at STRIPS) strip test times a day Discharge) stripsIndications: Type for glucose 2 diabetes mellitus with hyperglycemia, with long-term current use of insulin ([facility]) lancets Use one 200 each 3 12/29/19 Discontinu ed miscIndications: Type 2 lancet two (Reorder) diabetes mellitus with times a day hyperglycemia, with for glucose long-term current use of insulin ([facility]) LEVEMIR FLEXTOUCH U-100 INJECT SUB 35 45 [...] with BREAKFAST long-term current use of insulin ([facility]) levothyroxine TAKE 1 TABLET 90 tablet 1 07/01/19 Di scontinued (SYNTHROID) 50 mcg BY MOUTH ( Reorder) tabletIndications: EVERY DAY Hypothyroidism, unspecified type hydrALAZINE Take 25 mg by 0 Disc ontinued (APRESOLINE) 25 MG mouth 2 (two) 020 (Stop Taking at tablet times a day. Dischar ) carvediloL (COREG) 12.5 Take 1 tablet 60 [...] Discontinued 250 MG daily for one 20 (Stop Taking at tabletIndications: day and then Discharge) Acute cystitis without 1 tab PO hematuria every 48 hours for 10 days total duration blood sugar diagnostic Use one test 200 strip 3 08/29/19/2 / Discontinued strips (glucose blood) strip two (Stop Taking at strip test times daily Elizabeth ) stripsIndications: Type for glucose 2 diabetes mellitus with hyperglycemia, with long-term current use of insulin ([facility]) acetaminophen (TYLENOL) Take 2 60 tablet 0 [...] PAD TWICE A DAY (peripheral artery disease) ([facility]) QUEtiapine (SEROqueL) Take 1 tablet 30 tablet 0 12/14/1912/19 25 MG (25 mg total) 20 020 tabletIndications: by mouth Dementia with nightly for behavioral disturbance, 30 days. unspecified dementia type ([facility]) polyethylene glycol Take 17 g by 30 packet 0 12/14/19 (MIRALAX) 17 gram mouth daily 20 020 packetIndications: for 30 days. Constipation, unspecified constipation type docusate sodium Take 1 60 capsule 0 12/13/ Exp ired (Colace) 100 MG capsule (100 020 capsuleIndications: mg total) by Constipation, mouth [...] Added automatically from request for augustus carrol [id number] Gastrointestinal bleed 08/12/2019 Acute pulmonary edema 08/07/2019 Hematoma of groin 03/07/2018 PAD (peripheral artery disease) 02/08/2018 Overview: Added automatically from request for surgery [id number] Last Assessment & Plan: Improved symptoms. Continue medical optimization. Continue cilostazol. Follow-up in 6 months with ABIs and TBI's. PVD (peripheral vascular disease) 09/19/2017 Type 2 diabetes mellitus with hyperglycemia, with long -term current use of 03/10/2017 insulin Essential hypertension 03/10/2017 Mixed hyperlipidemia 03/10/2017 Encounters Date Type Specialty Care Team Description 04/24/2020 Orders Only Internal Medicine Felipe Forbes MD hypertension (Primary Dx) 04/24/2020 Orders Only Internal Medicine Srinivasan Forbes MD 01/04/2020 Telephone Consult Internal Medicine Celio Forbes tia with behavioral disturbance, unspecified dementia type (HCC) (Primary Dx); Srinivasan Blum MD Dermatitis 12/14/2019 Telephone Consult Internal Medicine Celio Forbes tia with behavioral disturbance, unspecified dementia type (HCC) (Primary Dx); Srinivasan Blum MD Constipation, u nspecified constipation type 12/12/2019 Travel 11/19/2019 Abstract Orthopedic Surgery Audelia Archer MA 11/14/2019 Telephone Consult Internal Medicine Julián Forbes (Primary Dx); Srinivasan Blum MD Type 2 diabetes mellitus with chronic kidney disease on chronic dialysis, with long-term current use of insulin (HCC); ESRD (end stage renal disease) on dialysis (HCC) 11/13/2019 Travel 11/08/2019 Telephone Internal Medicine Kathy Hui MA 10/24/2019 Telemedicine Internal Medicine Forbes, PVD (perip heral Srinivasan Blum MD vascular diseas e) ([facility]) (Primary Dx) 10/24/2019 Travel 10/16/2019 Orders Only Internal Medicine Forbes, Hypothyroi dism, unspecified type; Srinivasan Blum MD PAD (peripheral artery disease) ([facility]) 10/08/2019 Orders Only Internal Medicine De Oliveira, Type 2 miguel Dove MA mellitus with hyperglycemia, with long-term curre nt use of insulin ([facility]) (Primary Dx) 10/08/2019 Refill Cardiovascular Forbes, PAD (peripher al Srinivasan Blum MD artery disease) ([facility]) 10/02/2019 Hospital Encounter Radiology Nino Panda MD 10/02/2019 Abstract Orthopedic Surgery Audelia Archer MA 09/27/2019 Telephone Cardiovascular Suzanna Bella RN 09/21/2019 Travel 09/20/2019 Travel 09/07/2019 Anesthesia Event Orthopedic Surgery Jm Magana MD Koshy, Nikhil 09/07/2019 Surgery Orthopedic Surgery Nino Panda CRPP VS MD Don ARTHROPLASTY, L EFT HIP 09/04/2019 - Hospital Encounter Orthopedic Surgery Patti Murillo fracture of left hip, initial encounter ([facility]) (Primary Dx); 09/12/2019 Dorota O. Sr., Type 2 diabet es mellitus with hyperglycemia, with long-term current use of insulin ([facility]); Mixed hyperlipi demia; PVD (peripheral vascular disease) ([facility]); PAD (peripheral artery disease) ([facility]); Essential hyper tension 09/04/2019 Travel 08/30/2019 Telephone Internal Medicine Petty De Oliveira MA 08/29/2019 Orders Only Internal Medicine De Oliveira, Type 2 miguel Dove MA mellitus with hyperglycemia, with long-term curre nt use of insulin ([facility]) 08/28/2019 Telephone Internal Medicine Petty De Oliveira MA 08/28/2019 Orders Only Internal Medicine Forbes, ESRD (end stage Srinivasan Blum MD renal disease) ([facility]) (Primary Dx) 08/28/2019 Orders Only Internal Medicine Forbes, Acute cyst itis Srinivasan Blum MD without hematur ia (Primary Dx) 08/27/2019 Hospital Encounter Radiology Andrei Cough Srinivasan Blum MD 08/27/2019 Office Visit Internal Medicine Forbes, Type 2 miguel betes mellitus with hyperglycemia, with long-term current use of insulin ([facility]) (Primary Dx); Srinivasan Blum MD Essential hyper tension; Cough; Acute cystitis without hematuria; Debility 08/27/2019 Travel 08/21/2019 Telephone Internal Medicine Petty De Oliveira RUTHIE 08/07/2019 - Hospital Encounter Cardiology Gabino Feliz Acute re nal failure on dialysis ([facility]) (Primary Dx); 08/21/2019 MD Andre Acute pulmonary edema ([facility]); Cristy Murillo blood los s anemia; Dorota O. Sr., Type 2 diabet es mellitus with hyperglycemia, with long-term current use of insulin ([facility]); Essential hyper tension; Mixed hyperlipi demia; PAD (peripheral artery disease) ([facility]); PVD (peripheral vascular disease) ([facility]) 07/01/2019 Refill Internal Medicine Forbes, Hypothyroi dism, Srinivasan Blum MD unspecified typ e after 04/26/2019 Immunizations Name Administration Dates Next Due FLUZONE HIGH-DOSE PF 03/01/2018, 03/10/2017 Pneumococcal Conjugate 13-Valent 05/31/2018 Surgical History Surgery Date Site/Laterality Comments CATARACT EXTRACTION Bilateral CARPAL TUNNEL RELEASE Bilateral SECTION TOTAL KNEE ARTHROPLASTY Right HYSTERECTOMY ovaries removed CARDIAC CATHETERIZATION 09/19/2017 N/A Procedur e: Aortagram abdomen w run of f; Surgeon: Renuka Orlando MD; Location: [facility] Records Management Coordinator Invasive Locatio n; Service: Cardiov ascular; Laterality: N/A; ARTERIOGRAM WITH ANGIOPLASTY, IF 12/27/2017 Groin/Right Procedure: left lower INDICATED extremity arteri ogram angioplasty righ t popliteal artery and right peroneal artery; Surgeon : Nando Vides MD; Location: [facility] OR; Service: Va scular; Laterality: Righ t; Medical devices from this surgery are in t he Implants section. CARDIAC CATHETERIZATION 12/26/2017 N/A Procedur e: Aortagram abdomen w run of f; Surgeon: Renuka Orlando MD; Location: [facility] Records Management Coordinator Invasive Locatio n; Service: Cardiov ascular; Laterality: N/A; ARTERIOGRAM WITH ANGIOPLASTY, IF 03/07/2018 Right Procedure: RIGHT LOWER INDICATED EXTREMITY ANGIOG JOHNNIE AND ANGIOPLASTY; Morel rgeon: Nando Vides MD; Location: [facility] OR; Service: Nc scular; Laterality: Righ t; Medical devices from this surgery are in t he Implants section. ARTERIOGRAM WITH ANGIOPLASTY, IF 03/21/2018 Left Procedure: ARTERIOGRAM OF INDICATED LEFT LOWER EXTER EMITY, ANGIOPLASTY OF L EFT PERITONEAL & SFA ; Surgeon: Nando iVdes MD; Location: [facility] OR; Service: Nc scular; Laterality: Left ; Medical devices from this surgery are in t he Implants section. PINNING, HIP, PERCUTANEOUS 09/07/2019 Hip/Left Proce dure: CRPP VS ARTHROPLASTY, LE FT HIP; Surgeon: Jamil Panda MD; Location: [facility] OR; Service: Or thopedics; Laterality: [...] ual affects, TIA x 3 Renal failure , , and Sat , last dialysis 09/06/19 Family [...] 08/29/2017 URINE MICROALBUMIN 09/14/2019 09/13/2018, 09/02/2017, 03/01/2017 DIABETES: RETINAL EYE EXAM 01/19/2020 01/18/2018 INFLUENZA VACCINE 01/19/2020 03/01/2018, 03/01/2018, 03/10/2017 Implants Implanted Type Area Linter Drier Operator Device Shelf Model / Identifier Expiration Serial / Date Lot Device Vasclr Clsr Baln Cath 10ml Lkng Syr 5fr Morin My nxgrip - [id number] Cardiovascular N/A: N/A ACCESS CLOSURE 11/18/2019 [id number] / Implanted: 12/27/2017 at [facility] (Quantity not on file) [employer] / [id number] Device Vasclr Clsr Baln Cath 10ml Lkng Syr 5fr Morin My nxgrip - [id number] Cardiovascular N/A: N/A ACCESS CLOSURE 12/18/2019 [id number] / Implanted: 03/07/2018 at [facility] (Quantity not on file) [employer] / [id number] Device Vasclr Clsr Baln Cath 10ml Lkng Syr 5fr Morin My nxgrip - [id number] Cardiovascular N/A: N/A ACCESS CLOSURE 02/18/2020 [id number] / Implanted: Qty: 1 on 03/21/2018 by Nando Mistry MD at [facility] Implants INC / [id number] Screw Bone Canltd Thred Lg Hxgnl Socket Ss [id number] - [id number] Orthopedic Trauma Left: SYNTHES TRAUMA 208 870 / Implanted: 09/07/2019 at [facility] (Quantity not on file) Imp landiane Hip AND RECON / Screw Bone Canltd Thred Lg Hxgnl Socket Ss [id number] - [id number] Orthopedic Trauma Left: SYNTHES TRAUMA 208 875 / Implanted: 09/07/2019 at [facility] (Quantity not on file) Imp lants Hip AND RECON / Screw Bone Canltd Thred Lg Hxgnl Socket Ss [id number] - [id number] Orthopedic Trauma Left: SYNTHES TRAUMA 209 870 / Implanted: 09/07/2019 at [facility] (Quantity not on file) Imp lants Hip AND RECON / Screw Bone Canltd Thred Lg Hxgnl Socket Ss [id number] - [id number] Orthopedic Trauma Left: SYNTHES TRAUMA 209 875 / Implanted: 09/07/2019 at [facility] (Quantity not on file) Imp lants Hip AND RECON / Washer For Lg Scr 13mm - [id number] Orthopedic Trauma Left: SYNTHE S TRAUMA 219 99 / Implanted: 09/07/2019 at [facility] (Quantity not on file) Imp lants Hip AND RECON / Catheter Angio Business Services Intern Ii 5fr 65cm [facility] Braidd [facility] [place] - [id number] Surgical N/A: N/A [facility] [id number] / Implanted: 12/27/2017 at [facility] (Quantity not on file) Imp lants; INTERVENTION / Expanders; VASCULAR AUGUSTUS Extenders; Surgical Wires Catheter Angio Business Services Intern Ii 5fr 0.038in 65cm Contra-L - [id number] Surgical N/A: N/A [facility] [id number] / Implanted: 12/27/2017 at [facility] (Quantity not on file) Imp lants; INTERVENTION / Expanders; VASCULAR AUGUSTUS Extenders; Surgical Wires Catheter Card [place] [address] [facility] - [id number] Surgic al N/A: N/A [facility] [id number] / Implanted: 12/27/2017 at [facility] (Quantity not on file) Imp lants; INTERVENTION / Expanders; VASCULAR AUGUSTUS Extenders; Surgical Wires Catheter Computer Customer Support Specialist Otw 4fr 150cm 3x80mm Lpr Rodney Sl Right: TASHA [id number] / Implanted: Qty: 1 on 12/27/2017 by Nando Mistry MD at [facility] Groin SCIENTIFIC/GODWIN / PHERAL VASCULAR (MEDI-TECH) Catheter Computer Customer Support Specialist Otw 3.8fr 135cm 80x5mm Rodney Right: KATIA Rivera [id number] / Implanted: Qty: 1 on 12/27/2017 [facility] SCIENTIFIC/GODWIN / PHERAL VASCULAR (MEDI-TECH) Catheter Computer Customer Support Specialist Rodney Otw 135cm 4x60mm [place] [id number] / Implanted: Qty: 1 on 03/07/2018 by Nando Mistry MD at [facility] SCIENTIFIC/GODWIN / PHERAL VASCULAR (MEDI-TECH) Catheter Computer Customer Support Specialist Otw 4fr 150cm 3x80mm Lpr Rodney Sl [place] [id number] / Implanted: Qty: 1 on 03/07/2018 by Nando Mistry MD at [facility] SCIENTIFIC/GODWIN / PHERAL VASCULAR (MEDI-TECH) Catheter Computer Customer Support Specialist Otw 4fr 150cm 3x80mm Lpr Rodney Sl [place] [id number] / Implanted: Qty: 1 on 03/21/2018 by Nando Mistry MD at [facility] SCIENTIFIC/GODWIN / PHERAL VASCULAR (MEDI-TECH) Catheter Computer Customer Support Specialist Rodney Otw 3.8fr 135cm 80x4mm [place] [id number] / Implanted: Qty: 1 on 03/21/2018 by Nando Mistry MD at [facility] SCIENTIFIC/GODWIN / PHERAL VASCULAR ([facility]-TECH) Explanted Type Area Linter Drier Operator Device Shelf Model / Identifier Expiration Serial / Date Lot Screw Bone Canltd Thred Lg Hxgnl Socket Ss [id number] - Log [id number] Orthopedic Left: SYNTHES TRAUMA 208 870 / Implanted: 09/07/2019 (Quantity not on file) Trauma Hip AND R ECON / Explanted: 09/07/2019 at [facility] (Quantity not on file) Implants Screw Bone Canltd Thred Lg Hxgnl Socket Ss [id number] - Log [id number] Orthopedic Left: SYNTHES TRAUMA 209 870 / Implanted: 09/07/2019 (Quantity not on file) Trauma Hip AND R ECON / Explanted: 09/07/2019 at [facility] (Quantity not on file) Implants Washer For Lg Scr 13mm - [id number] Orthopedic Left: SYNTHES TRAUM A 219 99 / Implanted: 09/07/2019 (Quantity not on file) Trauma Hip AND R ECON / Explanted: 09/07/2019 at [facility] (Quantity not on file) Implants Procedures Procedure [...] procedure are i n the results section. NV AN ELECTIVE Routine 09/07/2019 8:41 Results f [...] Routine 08/21/2019 12:25 PM Results for this METAL BOX MAKER procedure are i n the results section. POC GLUCOSE Routine 08/21/2019 8:21 AM Results for this METAL BOX MAKER procedure are i n the results section. MANUAL DIFFERENTIAL Routine 08/21/2019 2:00 AM R esults for this METAL BOX MAKER procedure are i n the results section. PHOSPHORUS LEVEL Routine 08/21/2019 2:00 AM Resu lts for this METAL BOX MAKER procedure are i n the results section. ESTIMATED GFR Routine 08/21/2019 2:00 AM Results for this METAL BOX MAKER procedure are i n the results section. MAGNESIUM LEVEL Routine 08/21/2019 2:00 AM Resul ts for this METAL BOX MAKER procedure are i n the results section. CBC WITH PLATELET AND Routine 08/21/2019 2:00 AM Results for this DIFFERENTIAL METAL BOX MAKER procedure are i n the results section. BASIC METABOLIC PANEL Routine 08/21/2019 2:00 AM Results for this METAL BOX MAKER procedure are i n the results section. HEMODIALYSIS Routine 08/20/2019 10:22 PM METAL BOX MAKER POC GLUCOSE Routine 08/20/2019 9:18 PM Results for this METAL BOX MAKER procedure are i n the results section. POC GLUCOSE Routine 08/20/2019 6:23 PM Results for this METAL BOX MAKER procedure are i n the results section. POC GLUCOSE Routine 08/20/2019 5:13 PM Results for this METAL BOX MAKER procedure are i n the results section. POC GLUCOSE Routine 08/20/2019 11:08 AM Results for this METAL BOX MAKER procedure are i n the results section. POC GLUCOSE Routine 08/20/2019 7:58 AM Results for this METAL BOX MAKER procedure are i n the results section. MANUAL DIFFERENTIAL Routine 08/20/2019 5:05 AM R esults for this METAL BOX MAKER procedure are i n the results section. ESTIMATED GFR Routine 08/20/2019 5:05 AM Results for this METAL BOX MAKER procedure are i n the results section. MAGNESIUM LEVEL Routine 08/20/2019 5:05 AM Resul ts for this METAL BOX MAKER procedure are i n the results section. CBC WITH PLATELET AND Routine 08/20/2019 5:05 AM Results for this DIFFERENTIAL METAL BOX MAKER procedure are i n the results section. BASIC METABOLIC PANEL Routine 08/20/2019 5:05 AM Results for this METAL BOX MAKER procedure are i n the results section. POC GLUCOSE Routine 08/19/2019 9:15 PM Results for this METAL BOX MAKER procedure are i n the results section. POC GLUCOSE Routine 08/19/2019 5:14 PM Results for this METAL BOX MAKER procedure are i n the results section. POC GLUCOSE Routine 08/19/2019 11:55 AM Results for this METAL BOX MAKER procedure are i n the results section. ECG 12-LEAD Routine 08/19/2019 9:26 AM Results for this METAL BOX MAKER procedure are i n the results section. POC GLUCOSE Routine 08/19/2019 8:53 AM Results for this METAL BOX MAKER procedure are i n the results section. BASIC METABOLIC PANEL Routine 08/19/2019 4:00 AM Results for this METAL BOX MAKER procedure are i n the results section. ESTIMATED GFR Routine 08/19/2019 4:00 AM Results for this METAL BOX MAKER procedure are i n the results section. POC GLUCOSE Routine 08/18/2019 5:56 PM Results for this METAL BOX MAKER procedure are i n the results section. POC GLUCOSE Routine 08/18/2019 1:01 PM Results for this METAL BOX MAKER procedure are i n the results section. HEMODIALYSIS Routine 08/18/2019 8:45 AM METAL BOX MAKER POC GLUCOSE Routine 08/18/2019 7:36 AM Results for this METAL BOX MAKER procedure are i n the results section. POC GLUCOSE Routine 08/17/2019 9:00 PM Results for this METAL BOX MAKER procedure are i n the results section. POC GLUCOSE Routine 08/17/2019 6:13 PM Results for this METAL BOX MAKER procedure are i n the results section. POC GLUCOSE Routine 08/17/2019 12:44 PM Results for this METAL BOX MAKER procedure are i n the results section. NM MYOCARDIAL PERFUSION Routine 08/17/2019 8:37 AM Results for this STRESS REST 1 DAY METAL BOX MAKER procedure are in the results section. CV STRESS TEST NUCLEAR Routine 08/17/2019 8:37 AM Results for this CARDIO METAL BOX MAKER procedure are i n the results section. POC GLUCOSE Routine 08/17/2019 7:53 AM Results for this METAL BOX MAKER procedure are i n the results section. ESTIMATED GFR Routine 08/17/2019 3:40 AM Results for this METAL BOX MAKER procedure are i n the results section. PHOSPHORUS LEVEL Routine 08/17/2019 3:40 AM Resu lts for this METAL BOX MAKER procedure are i n the results section. BASIC METABOLIC PANEL Routine 08/17/2019 3:40 AM Results for this METAL BOX MAKER procedure are i n the results section. POC GLUCOSE Routine 08/16/2019 9:56 PM Results for this METAL BOX MAKER procedure are i n the results section. POC GLUCOSE Routine 08/16/2019 4:07 PM Results for this METAL BOX MAKER procedure are i n the results section. POC GLUCOSE Routine 08/16/2019 11:38 AM Results for this METAL BOX MAKER procedure are i n the results section. CT HEAD WO CONTRAST Routine 08/16/2019 11:21 AM R esults for this METAL BOX MAKER procedure are i n the results section. ESTIMATED GFR Routine 08/16/2019 10:29 AM Results for this METAL BOX MAKER procedure are i n the results section. BASIC METABOLIC PANEL Routine 08/16/2019 10:29 AM Results for this METAL BOX MAKER procedure are i n the results section. POC GLUCOSE Routine 08/16/2019 7:41 AM Results for this METAL BOX MAKER procedure are i n the results section. POC GLUCOSE Routine 08/15/2019 6:03 PM Results for this METAL BOX MAKER procedure are i n the results section. POC GLUCOSE Routine 08/15/2019 12:07 PM Results for this METAL BOX MAKER procedure are i n the results section. HEMODIALYSIS Routine 08/15/2019 12:04 PM METAL BOX MAKER POC GLUCOSE Routine 08/15/2019 8:29 AM Results for this METAL BOX MAKER procedure are i n the results section. ESTIMATED GFR Routine 08/15/2019 8:15 AM Results for this METAL BOX MAKER procedure are i n the results section. PHOSPHORUS LEVEL Routine 08/15/2019 8:15 AM Resu lts for this METAL BOX MAKER procedure are i n the results section. MAGNESIUM LEVEL Routine 08/15/2019 8:15 AM Resul ts for this METAL BOX MAKER procedure are i n the results section. BASIC METABOLIC PANEL Routine 08/15/2019 8:15 AM Results for this METAL BOX MAKER procedure are i n the results section. HC COMPLETE BLD COUNT Routine 08/15/2019 8:15 AM Results for this W/AUTO DIFF METAL BOX MAKER procedure are i n the results section. POC GLUCOSE Routine 08/14/2019 9:45 PM Results for this METAL BOX MAKER procedure are i n the results section. POC GLUCOSE Routine 08/14/2019 4:20 PM Results for this METAL BOX MAKER procedure are i n the results section. POC GLUCOSE Routine 08/14/2019 11:11 AM Results for this METAL BOX MAKER procedure are i n the results section. HEPATITIS B CORE Routine 08/14/2019 10:05 AM Resu lts for this ANTIBODY TOTAL METAL BOX MAKER procedure are in the results section. HEPATITIS B SURFACE Routine 08/14/2019 10:05 AM R esults for this ANTIBODY METAL BOX MAKER procedure are i n the results section. HEPATITIS B SURFACE Routine 08/14/2019 10:05 AM R esults for this ANTIGEN METAL BOX MAKER procedure are i n the results section. HEPATITIS C ANTIBODY Routine 08/14/2019 10:05 AM Results for this METAL BOX MAKER procedure are i n the results section. HEMODIALYSIS Routine 08/14/2019 9:00 AM METAL BOX MAKER POC GLUCOSE Routine 08/14/2019 7:36 AM Results for this METAL BOX MAKER procedure are i n the results section. HC COMPLETE BLD COUNT Routine 08/14/2019 5:30 AM Results for this W/AUTO DIFF METAL BOX MAKER procedure are i n the results section. ESTIMATED GFR Routine 08/14/2019 4:00 AM Results for this [employer] procedure are i n the results section. BASIC METABOLIC PANEL Routine 08/14/2019 4:00 AM Results for this [employer] procedure are i n the results section. POC GLUCOSE Routine 08/13/2019 8:06 PM Results for this [employer] procedure are i n the results section. IR TUNNELED DIALYSIS Routine 08/13/2019 6:37 PM Results for this CATHETER PLACEMENT MET[employer]OX [employer]KER procedure are in the results section. HEPATITIS B SURFACE STAT 08/13/2019 5:28 PM R esults for this ANTIGEN [employer]ER procedure are i n the results section. POC GLUCOSE Routine 08/13/2019 5:15 PM Results for this [employer] procedure are i n the results section. POC GLUCOSE Routine 08/13/2019 11:54 AM Results for this [employer] procedure are i n the results section. HEMODIALYSIS Routine 08/13/2019 11:03 AM MET[employer]OX [employer]ER POC GLUCOSE Routine 08/13/2019 7:28 AM Results for this [employer] procedure are i n the results section. HC COMPLETE BLD COUNT Routine 08/13/2019 4:50 AM Results for this W/AUTO DIFF [employer]ER procedure are i n the results section. ESTIMATED GFR Routine 08/13/2019 4:00 AM Results for this [employer] procedure are i n the results section. BASIC METABOLIC PANEL Routine 08/13/2019 4:00 AM Results for this [employer] procedure are i n the results section. IONIZED CALCIUM Routine 08/13/2019 4:00 AM Resul ts for this [employer] procedure are i n the results section. POC GLUCOSE Routine 08/12/2019 8:33 PM Results for this [employer] procedure are i n the results section. POTASSIUM LEVEL Routine 08/12/2019 7:00 PM Resul ts for this [employer] procedure are i n the results section. POC GLUCOSE Routine 08/12/2019 6:25 PM Results for this [employer] procedure are i n the results section. POC GLUCOSE Routine 08/12/2019 4:18 PM Results for this [employer] procedure are i n the results section. POC GLUCOSE Routine 08/12/2019 11:43 AM Results for this [employer] procedure are i n the results section. XR CHEST 1 VW PORTABLE Routine 08/12/2019 9:16 AM Results for this [employer] procedure are i n the results section. POC GLUCOSE Routine 08/12/2019 6:59 AM Results for this [employer] procedure are i n the results section. MANUAL DIFFERENTIAL Routine 08/12/2019 5:00 AM R esults for this [employer] procedure are i n the results section. ESTIMATED GFR Routine 08/12/2019 5:00 AM Results for this [employer] procedure are i n the results section. B NATRIURETIC PEPTIDE Routine 08/12/2019 5:00 AM Results for this [employer] procedure are i n the results section. IONIZED CALCIUM Routine 08/12/2019 5:00 AM Resul ts for this [employer] procedure are i n the results section. PHOSPHORUS LEVEL Routine 08/12/2019 5:00 AM Resu lts for this [employer] procedure are i n the results section. MAGNESIUM LEVEL Routine 08/12/2019 5:00 AM Resul ts for this [employer] procedure are i n the results section. BASIC METABOLIC PANEL Routine 08/12/2019 5:00 AM Results for this [employer] procedure are i n the results section. CBC WITH PLATELET AND Routine 08/12/2019 5:00 AM Results for this DIFFERENTIAL [employer] procedure are i n the results section. POC GLUCOSE Routine 08/11/2019 8:34 PM Results for this [employer] procedure are i n the results section. POC GLUCOSE Routine 08/11/2019 6:06 PM Results for this [employer] procedure are i n the results section. HEMOGLOBIN & HEMATOCRIT Timed 08/11/2019 4:55 PM Results for this [employer] procedure are i n the results section. TRANSFUSE RED BLOOD STAT 08/11/2019 1:35 PM CELLS MET[employer]ER POC GLUCOSE Routine 08/11/2019 12:24 PM Results for this [employer] procedure are i n the results section. TRANSFUSE RED BLOOD STAT 08/11/2019 11:13 AM CELLS METAL [employer]OX [employer]ER OCCULT BLOOD, STOOL Routine 08/11/2019 8:17 AM R esults for this [employer] procedure are i n the results section. POC GLUCOSE Routine 08/11/2019 8:02 AM Results for this [employer] procedure are i n the results section. HEMOGLOBIN & HEMATOCRIT STAT 08/11/2019 7:28 AM Results for this [employer] procedure are i n the results section. PREPARE RBC STAT 08/11/2019 6:24 AM Results for this [employer] procedure are i n the results section. TYPE AND SCREEN STAT 08/11/2019 6:24 AM Resul ts for this [employer] procedure are i n the results section. POC GLUCOSE Routine 08/11/2019 6:04 AM Results for this [employer] procedure are i n the results section. POC GLUCOSE Routine 08/11/2019 4:57 AM Results for this [employer] procedure are i n the results section. SMEAR REVIEW Routine 08/11/2019 4:35 AM Results for this [employer] procedure are i n the results section. HC COMPLETE BLD COUNT Routine 08/11/2019 4:35 AM Results for this W/AUTO DIFF [employer] procedure are i n the results section. ESTIMATED GFR Routine 08/11/2019 4:11 AM Results for this [employer] procedure are i n the results section. BASIC METABOLIC PANEL Routine 08/11/2019 4:11 AM Results for this [employer] procedure are i n the results section. POC GLUCOSE Routine 08/11/2019 12:25 AM Results for this [employer] procedure are i n the results section. POC GLUCOSE Routine 08/10/2019 8:52 PM Results for this [employer] procedure are i n the results section. POC GLUCOSE Routine 08/10/2019 4:59 PM Results for this [employer] procedure are i n the results section. POC GLUCOSE Routine 08/10/2019 12:19 PM Results for this [employer] procedure are i n the results section. POC GLUCOSE Routine 08/10/2019 11:00 AM Results for this [employer] procedure are i n the results section. POC GLUCOSE Routine 08/10/2019 8:31 AM Results for this [employer] procedure are i n the results section. POC GLUCOSE Routine 08/10/2019 7:21 AM Results for this [employer] procedure are i n the results section. ESTIMATED GFR Routine 08/10/2019 5:23 AM Results for this [employer] procedure are i n the results section. BASIC METABOLIC PANEL Routine 08/10/2019 5:23 AM Results for this [employer] procedure are i n the results section. HC COMPLETE BLD COUNT Routine 08/10/2019 5:23 AM Results for this W/AUTO DIFF [employer] procedure are i n the results section. POC GLUCOSE Routine 08/10/2019 4:01 AM Results for this [employer] procedure are i n the results section. POC GLUCOSE Routine 08/10/2019 12:27 AM Results for this [employer] procedure are i n the results section. POC GLUCOSE Routine 08/09/2019 9:24 PM Results for this [employer] procedure are i n the results section. US RENAL DOPPLER Routine 08/09/2019 9:00 PM Resu lts for this [employer] procedure are i n the results section. POC GLUCOSE Routine 08/09/2019 4:35 PM Results for this [employer] procedure are i n the results section. POC GLUCOSE Routine 08/09/2019 12:39 PM Results for this [employer] procedure are i n the results section. BODY FLUID CONSULT Routine 08/09/2019 11:49 AM Re sults for this [employer] procedure are i n the results section. URINALYSIS, AUTOMATED Routine 08/09/2019 11:49 AM Results for this WITH MICROSCOPY [employer] procedure ar e in the results section. TORITO TITER Routine 08/09/2019 11:45 AM Results for this [employer] procedure are i n the results section. GLOMERULAR BASEMENT Routine 08/09/2019 11:45 AM R esults for this MEMBRANE AB IGG (IFA) METAL [employer]OX MAKER proced ure are in the results section. ANTI-NEUTROPHILIC Routine 08/09/2019 11:45 AM Res ults for this CYTOPLASMIC ABS PANEL [employer] proced ure are in the results section. TORITO Routine 08/09/2019 11:45 AM Results for this [employer] procedure are i n the results section. BARNETT ANTIBODY Routine 08/09/2019 11:45 AM Result s for this [employer] procedure are i n the results section. DOUBLE-STRANDED DNA Routine 08/09/2019 11:45 AM R esults for this (DSDNA) ANTIBODIES, METAL [employer]OX [employer]KER procedur e are in CRITHIDIA the results section. C4 COMPLEMENT COMPONENT Routine 08/09/2019 11:45 AM Results for this [employer] procedure are i n the results section. C3 COMPLEMENT COMPONENT Routine 08/09/2019 11:45 AM Results for this [employer] procedure are i n the results section. XR CHEST 1 VW PORTABLE Routine 08/09/2019 9:58 AM Results for this [employer] procedure are i n the results section. POC GLUCOSE Routine 08/09/2019 8:09 AM Results for this [employer] procedure are i n the results section. B NATRIURETIC PEPTIDE Routine 08/09/2019 5:20 AM Results for this [employer] procedure are i n the results section. VENOUS BLOOD GAS Routine 08/09/2019 5:20 AM Resu lts for this [employer] procedure are i n the results section. D-DIMER Routine 08/09/2019 5:20 AM Results for this MET[employer]KER procedure are i n the results section. HC COMPLETE BLD COUNT Routine 08/09/2019 5:20 AM Results for this W/AUTO DIFF MET[employer] procedure are i n the results section. POC GLUCOSE Routine 08/09/2019 4:54 AM Results for this [employer] procedure are i n the results section. ESTIMATED GFR Routine 08/09/2019 4:00 AM Results for this [employer] procedure are i n the results section. CREATINE KINASE, TOTAL Routine 08/09/2019 4:00 AM Results for this (CPK) MET[employer] procedure are i n the results section. TOTAL IRON BINDING Routine 08/09/2019 4:00 AM Re sults for this CAPACITY METAL [employer]OX [employer]KER procedure are i n the results section. FERRITIN LEVEL Routine 08/09/2019 4:00 AM Result s for this [employer] procedure are i n the results section. BASIC METABOLIC PANEL Routine 08/09/2019 4:00 AM Results for this MET[employer] procedure are i n the results section. POC GLUCOSE Routine 08/09/2019 2:22 AM Results for this MET[employer] procedure are i n the results section. SERUM ELECTROPHORESIS Routine 08/09/2019 12:17 AM Results for this MET[employer]OX [employer] procedure are i n the results section. KAPPA LAMBDA FREE LIGHT Routine 08/09/2019 12:17 AM Results for this CHAIN WITH RATIO METAL [employer]OX [employer]KER procedure a re in the results section. LACTIC ACID LEVEL Timed 08/09/2019 12:17 AM Res ults for this [employer] procedure are i n the results section. US CAROTID DUPLEX Routine 08/08/2019 9:20 PM Res ults for this BILATERAL METAL [employer] MAKER procedure are i n the results section. POC GLUCOSE Routine 08/08/2019 9:13 PM Results for this METAL [employer]KER procedure are i n the results section. POC GLUCOSE Routine 08/08/2019 6:26 PM Results for this MET[employer]OX [employer] procedure are i n the results section. URINE CULTURE Routine 08/08/2019 4:57 PM Results for this MET[employer] procedure are i n the results section. US RENAL Routine 08/08/2019 3:35 PM Results for this METAL [employer]OX [employer]KER procedure are i n the results section. PROTEIN, URINE, RANDOM Routine 08/08/2019 1:43 PM Results for this MET[employer]KER procedure are i n the results section. CREATININE LEVEL, URINE, Routine 08/08/2019 1:43 PM Results for this RANDOM MET[employer]ER procedure are i n the results section. SODIUM LEVEL, URINE, Routine 08/08/2019 1:43 PM Results for this RANDOM METAL [employer]OX [employer]KER procedure are i n the results section. UREA NITROGEN, URINE, Routine 08/08/2019 1:43 PM Results for this RANDOM METAL [employer]OX MAKER procedure are i n the results section. URINALYSIS SCREEN AND Routine 08/08/2019 1:43 PM Results for this MICROSCOPY, WITH REFLEX METAL [employer]OX MAKER proc edure are in TO CULTURE the results section. POC GLUCOSE Routine 08/08/2019 12:32 PM Results for this MET[employer]OX [employer]KER procedure are i n the results section. POC GLUCOSE Routine 08/08/2019 7:33 AM Results for this METAL [employer]OX [employer]KER procedure are i n the results section. POC GLUCOSE Routine 08/08/2019 5:58 AM Results for this METAL [employer]OX [employer]KER procedure are i n the results section. POC GLUCOSE Routine 08/08/2019 4:18 AM Results for this MET[employer]OX [employer] procedure are i n the results section. TROPONIN Routine 08/08/2019 4:04 AM Results for this METAL [employer]OX [employer]KER procedure are i n the results section. ESTIMATED GFR STAT 08/08/2019 2:24 AM Results for this METAL [employer]OX [employer]KER procedure are i n the results section. COMPREHENSIVE METABOLIC STAT 08/08/2019 2:24 AM Results for this PANEL [employer] procedure are i n the results section. ESTIMATED GFR Routine 08/08/2019 1:40 AM Results for this METAL [employer]OX [employer]KER procedure are i n the results section. LIPID PANEL Routine 08/08/2019 1:40 AM Results for this MET[employer]OX [employer]KER procedure are i n the results section. T4, FREE Routine 08/08/2019 1:40 AM Results for this METAL [employer]OX [employer]KER procedure are i n the results section. THYROID STIMULATING Routine 08/08/2019 1:40 AM R esults for this HORMONE METAL [employer]OX [employer]KER procedure are i n the results section. HEMOGLOBIN A1C Routine 08/08/2019 1:40 AM Result s for this MET[employer]KER procedure are i n the results section. BASIC METABOLIC PANEL Routine 08/08/2019 1:40 AM Results for this METAL [employer]OX [employer]KER procedure are i n the results section. HC COMPLETE BLD COUNT Routine 08/08/2019 1:40 AM Results for this W/AUTO DIFF METAL [employer]OX MAKER procedure are i n the results section. TROPONIN Routine 08/08/2019 12:09 AM Results for this METAL [employer]OX MAKER procedure are i n the results section. XR CHEST 1 VW PORTABLE STAT 08/07/2019 9:08 PM Results for this MET[employer]OX [employer]KER procedure are i n the results section. ECG 12-LEAD Routine 08/07/2019 8:50 PM Results for this METAL [employer]OX [employer]KER procedure are i n the results section. ESTIMATED GFR Routine 08/07/2019 8:45 PM Results for this MET[employer]OX [employer]KER procedure are i n the results section. HC COMPLETE BLD COUNT Routine 08/07/2019 8:45 PM Results for this W/AUTO DIFF MET[employer]ER procedure are i n the results section. COMPREHENSIVE METABOLIC Routine 08/07/2019 8:45 PM Results for this PANEL [employer] procedure are i n the results section. TROPONIN Routine 08/07/2019 8:45 PM Results for this METAL [employer]OX MAKER procedure are i n the results section. B NATRIURETIC PEPTIDE Routine 08/07/2019 8:45 PM Results for this METAL [employer]OX MAKER procedure are i n the results section. NV CRITICAL CARE, E/M Routine 08/07/2019 8:33 PM Results for this 30-74 MINUTES METAL [employer]KER procedure are in the results section. ESTIMATED GFR STAT 08/07/2019 6:42 PM Results for this METAL [employer]OX MAKER procedure are i n the results section. LIPASE LEVEL STAT 08/07/2019 6:42 PM Results for this METAL [employer]OX MAKER procedure are i n the results section. AMYLASE LEVEL STAT 08/07/2019 6:42 PM Results for this METAL [employer]OX MAKER procedure are i n the results section. COMPREHENSIVE METABOLIC STAT 08/07/2019 6:42 PM Results for this PANEL METAL [employer]OX [employer]KER procedure are i n the results section. PARTIAL THROMBOPLASTIN STAT 08/07/2019 6:42 PM Results for this TIME (PTT) METAL [employer]OX MAKER procedure are i n the results section. PROTHROMBIN TIME WITH STAT 08/07/2019 6:42 PM Results for this INR METAL [employer]OX MAKER procedure are i n the results section. HC COMPLETE BLD COUNT STAT 08/07/2019 6:42 PM Results for this W/AUTO DIFF METAL [employer]OX MAKER procedure are i n the results section. TTE COMPLETE, WO Routine 08/07/2019 12:45 AM Resu lts for this CONTRAST, W DOPPLER METAL [employer]OX MAKER procedur e are in ([id number]) the results section. after 04/26/2019 Results XR Lower Extremity External Study (09/21/2019 2:37 PM CDT) Specimen Narrative Performed At This exam was not acquired at a [facility] facility and has not been [facility] interpreted by a [employer] Provider. T he exam was imported into our imaging system. Performing Organization Address City/State/ZIP Code Phon e Number [facility] [address] [place] [address] POC glucose (09/12/2019 12:02 PM CDT)Only the most recent of94 resultswithin the time period is included. Pathologist Sig nature POC glucose 104 (H) 65 - 99 mg/dL [facility] Comment: HOSPITAL Sports Broadcaster Name: [facility] Device ID: [id number] Chartable: [facility] Notified RN Specimen Blood Performing Organization Address City/State/ZIP Code Phon e Number [facility] DEPARTMENT OF PATHOLOGY AND [address] [place], [place] [address] [facility] [address] [place] [address] Hepatitis B surface antigen (09/11/2019 10:57 AM CDT)Only the most recent of3 resultswithin the time period is included. Pathologist Sig nature Hepatitis B surface Non-reactive Non-reactive [facility] Specimen Blood Performing Organization Address City/[facility] Code Phon e Number [facility] DEPARTMENT OF PATHOLOGY AND [address] [place], [place] [address] [facility] [address] [place] [address] CBC with platelet and differential (09/11/2019 8:15 AM CDT)Only the most recent of16 resultswithin the time period is included. WBC 5.56 4.50 - 11.00 [facility] k/uL HOSPITAL RBC 3.30 (L) 4.20 - 5.50 [facility] m/uL [facility] HGB 8.8 (L) 12.0 - 16.0 [facility] g/dL [facility] HCT 28.2 (L) 37.0 - 47.0 % [facility] MCV 85.5 82.0 - 100.0 [facility] MCH 26.7 (L) 27.0 - 34.0 pg [facility] MCHC 31.2 31.0 - 37.0 [facility] RDW - SD 46.1 37.0 - 55.0 fL [facility] MPV 9.7 8.8 - 13.2 fL [facility] Platelet count 340 150 - 400 k/uL [facility] Nucleated RBC 0.00 /100 WBC [facility] Neutrophils 62.7 39.0 - 69.0 % [facility] Lymphocytes 26.6 25.0 - 45.0 % [facility] Monocytes 6.8 0.0 - 10.0 % [facility] Eosinophils 2.5 0.0 - 5.0 % [facility] Basophils 0.9 0.0 - 1.0 % [facility] Immature granulocytes 0.5Comment: 0.0 - 1.0 % [facility] "Immature HOSPITAL granulocytes" (promyelocytes , myelocytes, metamyelocytes ) Specimen Blood Performing Organization Address City/[facility] Phon e Number [facility] DEPARTMENT OF PATHOLOGY AND [address] [place] [address] [phone] [address] Estimated GFR (09/11/2019 12:00 AM CDT)Only the most recent of21 resultswithin the time period is included. Estimated GFR 8 (A) mL/min/1.73 [facility] Comment: m2 HOSPITAL Catergory Units Interpretation G1 [...] published in 2014. Specimen Performing Organization Address [facility] Phon e Number [facility] DEPARTMENT OF PATHOLOGY AND [address] [place] [address] [address] Basic metabolic panel (09/11/2019 12:00 AM CDT)Only the most recent of18 results within the time period is included. Pathologist Sig nature Sodium 133 (L) 135 - 148 mEq/L [facility] Potassium 3.7 3.5 - 5.0 mEq/L [facility] Chloride 95 (L) 98 - 112 mEq/L [facility] CO2 23 (L) 24 - 31 mEq/L [facility] Anion gap 15@ANIO 7 - 15 mEq/L [facility] BUN 35 (H) 8 - 23 mg/dL [facility] Creatinine 4.76 (H) 0.50 - 0.90 mg/dL [facility] Glucose 80 65 - 99 mg/dL [facility] Calcium 8.4 (L) 8.8 - 10.2 mg/dL [facility] Specimen Blood Performing Organization Address City/[facility] Phon e Number [facility] DEPARTMENT OF PATHOLOGY AND [address] [place] [address] [phone] [address] CBC hemogram (09/08/2019 7:30 AM CDT) Pathologist Sig nature WBC 8.65 4.50 - 11.00 k/uL [facility] RBC 3.17 (L) 4.20 - 5.50 m/uL [facility] HGB 8.3 (L) 12.0 - 16.0 g/dL [facility] HCT 27.5 (L) 37.0 - 47.0 % [facility] MCV 86.8 82.0 - 100.0 fL [facility] MCH 26.2 (L) 27.0 - 34.0 pg [facility] MCHC 30.2 (L) 31.0 - 37.0 g/dL [facility] RDW - SD 46.7 37.0 - 55.0 fL [facility] MPV 10.2 8.8 - 13.2 fL [facility] Platelet count 298 150 - 400 k/uL [facility] Nucleated RBC 0.00 /100 WBC [facility] Specimen Blood Performing Organization Address [facility] Phon e Number [facility] DEPARTMENT OF PATHOLOGY AND [address] [place] [address] [phone] [address] Phosphorus level (09/08/2019 4:00 AM CDT)Only the most recent of6 resultswithin the time period is included. Pathologist Sig nature Phosphorus 5.5 (H) 2.4 - 4.5 mg/dL [facility] Specimen Blood Performing Organization Address City/[facility] Phon e Number [facility] DEPARTMENT OF PATHOLOGY AND [address] [place], [place] [phone] [address] [address] Magnesium level (09/08/2019 4:00 AM CDT)Only the most recent of6 resultswithin the time period is included. Pathologist Sig nature Magnesium 2.0 1.6 - 2.4 mg/dL [facility] Specimen Blood Performing Organization Address [facility] Phon e Number [facility] DEPARTMENT OF PATHOLOGY AND [address] [place] [address] [phone] [address] [place] > I Hour (09/07/2019 9:16 AM CDT) Specimen Narrative Performed At EXAMINATION: [place] > 1 HOUR HM [facility] C-arm fluoroscopy was requested in [place]. [...] performing the procedure. [id number] Performing Organization Address City/State/ZIP Code Phon e Number [facility] [address] [place] [address] Airway (09/07/2019 8:41 AM CDT) Narrative Performed At Matias Douglas Jr., CRNA 2019 8:42 AM Airway Date/Time: 09/07/2019 8:05 AM Performed by: Matias Douglas Jr., CR NA Authorized by: Jm Magana MD Location: [place] Urgency: Elective Difficult Airway: No Anesthesiologist: Jm Magana MD Resident/NIELS/AA: Matias Douglas CRNA Performed by: resident/CROP RESEARCH SCIENTIST/AA Preoxygenated with 100% O2: Yes C-spine Precautions [...] POC panel 4 (09/07/2019 6:48 AM CDT) [facility] POC sodium 131 (L) 135 - 148 [facility] mmol/L [facility] POC potassium 4.0 3.5 - 5.0 [facility] mmol/L [facility] POC hematocrit 30 (L) 37 - 47 % [facility] POC glucose 132 (H) 65 - 99 mg/dL [facility] Comment: HOSPITAL Sports Broadcaster Name: Lamont Contreras Device ID: [id number] Specimen Performing Organization Address [facility] Phon e Number [facility] DEPARTMENT OF PATHOLOGY AND [address] [place] [phone] Total iron binding capacity (09/07/2019 4:30 AM CDT)Only the most recent of2 resultswithin the time period is included. [facility] nature Iron level 31 (L) 37 - 145 ug/dL [facility] Iron binding capacity 166 (L) 200 - 400 ug/dL [facility] % Saturation 18.7 15.0 - 38.0 % [facility] Specimen Blood Performing Organization Address [facility] Phon e Number [facility] [facility] DEPART[facility] OF [facility]OLOGY AND [address] [place] [address] Partial thromboplastin time, activated (09/07/2019 4:30 AM CDT)Only the most recent of4 resultswithin the time period is included. [facility] PTT 36.4 (H) 23.0 - 36.0 [facility] Comment: [facility] PTT therapeutic range for unfractionated heparin is 61.0-112.0 seconds which corresponds to Anti-Xa 0.3-0.7 U/ml. Specimen Blood Performing Organization Address City/[facility]/ZIP [facility] [place] Phon e Number [facility] DEPARTMENT OF PATHOLOGY AND [address] [place] [phone] Prothrombin time with INR (09/07/2019 4:30 AM CDT)Only the most recent of4 resultswithin the time period is included. [facility] Prothrombin time 14.6 (H) 11.5 - 14.5 [facility] INR 1.1 JEDDO Comment: [facility] International Normalized Ratio (INR) is a [facility] HOSPITAL monitoring tool for patients who are stable on oral anticoagulant therapy. An INR of 2.0-3.0 is suggested for deep vein thrombosis/pulmonary embolism. Specimen Blood Performing Organization Address [facility]/ZIP [facility] [place] Phon e Number [facility] DEPARTMENT OF PATHOLOGY AND [address] [place] [address] [phone] [address] Ferritin level (09/07/2019 4:30 AM CDT)Only the most recent of2 resultswithin the time period is included. Pathologist Sig [facility] Ferritin level 928 (H) 13 - 150 ng/mL [facility] Specimen Blood Performing Organization Address [facility] Phon e Number [facility] DEPARTMENT OF PATHOLOGY AND [address] [place] [address] [phone] [address] Albumin level (09/06/2019 4:00 AM CDT) Pathologist Sig [facility] Albumin 2.5 (L) 3.5 - 5.0 g/dL [facility] Specimen Blood Performing Organization Address City/[facility] Phon e Number [facility] DEPARTMENT OF PATHOLOGY AND [address] [place] [address] [phone] [address] ECG 12 lead (09/05/2019 6:15 PM CDT)Only the most recent of3 resultswithin the time period is included. Pathologist Sig nature Ventricular rate 77 [facility] Atrial rate 77 [facility] NV interval 130 [facility] QRSD interval 90 [facility] QT interval 380 [facility] QTC interval 430 [facility] P axis 1 47 [facility] QRS axis 1 10 [facility] T wave axis 127 [facility] EKG impression Normal sinus rhythm-Minimal voltage criteria for LVH, may be normal variant ( [place] product )-ST & T wave abnormality, consider lateral ischemia-Abnormal ECG-In automated comparison with ECG of 19-AUG-2019 09:26,-No significant change was [facility] MUSE found- Specimen Narrative Performed At This result has an attachment that is no t available. Performing Organization Address [facility]/ZIP Code Phon e Number [facility] [address] [place] [address] XR Hip 2-3 View Left (09/05/2019 2:13 [...] or dislocation. 3. Vascular consultations are present. [facility]-[id number] Procedure Note Interface, Radiology Results Incoming - [...] or dislocation. 3. Vascular consultations are present. [facility]-[id number] Performing Organization Address City/[facility]/ZIP Code Phon e Number [facility] [address] [place] [address] XR Femur 2 Vw Left (09/05/2019 2:13 PM CDT) Specimen Narrative Performed At EXAMINATION: XR FEMUR 2 VW LEFT [facility] CLINICAL HISTORY: Fracture femur COMPARISON: None. FINDINGS: There is a subcapital femoral neck fracture, with slig ht impaction and valgus angulation noted. Moderate vascular calcifications are pre sent. IMPRESSION: Left-sided Subcapital femoral neck fract ure. [id number] Procedure Note Interface, Radiology Results Incoming - 09/05/2019 2:18 PM CDT EXAMINATION: XR FEMUR 2 VW LEFT CLINICAL HISTORY: Fracture femur COMPARISON: None. FINDINGS: There is a subcapital femoral neck fract ure, with slight impaction and valgus angulation noted. Moderate vascular calcifications are pre sent. IMPRESSION: Left-sided Subcapital femoral neck fract ure. [id number] Performing Organization Address City/[facility]/ZIP Code Phon e Number [facility] [address] [place] [address] XR Pelvis 1 Or 2 Vw (09/05/2019 [...] within the left and right hip joints. [id number] . Procedure Note Interface, Radiology Results Incoming [...] within the left and right hip joints. [id number] . Performing Organization Address City/[facility]/ZIP Code Phon e Number [facility] [address] [place] [address] Type and screen (09/05/2019 6:10 AM CDT)Only the most recent of2 resultswithin the time period is included. Pathologist Sig nature ABO grouping O [facility] Rh type POS [facility] Antibody screen (gel) NEG [facility] Specimen Blood Performing Organization Address [facility] Phon e Number [facility] DEPARTMENT OF PATHOLOGY AND [address] [place] [address] GENOMIC MEDICINE [facility] [address] [place] [address] XR Chest 2 Vw (08/27/2019 4:54 PM [...] IMPRESSION: No acute intrathoracic abn ormality identified. [facility]-[id number] Procedure Note Hm Interface, Radiology Results Incoming - 08/27/2019 5:03 [...] IMPRESSION: No acute intrathoracic abno rmality identified. [facility]-[id number] Performing Organization Address [facility] Phon e Number [facility] [address] [place] [address] URINALYSIS, COMPLETE, WITH REFLEX TO CULTURE (08/27/2019 4:10 PM CDT) Color, UA YELLOW YELLOW [facility] JEDDO Appearance CLOUDY (A) CLEAR [facility] JEDDO Specific gravity, 1.024 1.001 - 1.035 [facility] urine JEDDO pH, urine < OR = 5.0 5.0 - 8.0 [facility] JEDDO Glucose, urine 1+ (A) NEGATIVE [facility] JEDDO Bilirubin, UA NEGATIVE NEGATIVE [facility] JEDDO Ketones, UA NEGATIVE NEGATIVE [facility] JEDDO Occult blood, NEGATIVE NEGATIVE [facility] urine JEDDO Protein, UA 3+ (A) NEGATIVE [facility] JEDDO Nitrite, UA NEGATIVE NEGATIVE [facility] JEDDO Leukocyte TRACE (A) NEGATIVE [facility] esterase, UA JEDDO WBC, UA 20-40 (A) < OR = 5 /HPF [facility] JEDDO RBC, UA 0-2 < OR = 2 /HPF [facility] JEDDO Squamous 0-5 < OR = 5 /HPF [facility] epithelial cells, JEDDO UA Bacteria, UA NONE SEEN NONE SEEN /HPF [facility] JEDDO Hyaline casts, UA NONE SEEN NONE SEEN /LPF [facility] JEDDO Reflex CULTURE [facility] INDICATED - JEDDO RESULTS TO FOLLOW Specimen Narrative Performed At FASTING:UNKNOWN [facility] FASTING: UNKNOWN Resulting Agency Comment Performing Organization Information: Site ID: [id number] Name: [facility] Address: [address] [place] [phone] Director: Ed Roldan Performing Organization Address City/[facility] Phon e Number [employer] [place] [address] Urine culture (08/27/2019 4:10 PM CDT)Only the most recent of2 resultswithin the time period is included. Urine culture SEE NOTE [facility] Comment: JEDDO CULTURE, URINE, ROUTINE Micro Number: [id number] Test Status: Final Specimen Source: URINE Specimen Quality: Adequate Result: Multiple organisms p resent, each less than 10,000 CFU/mL. These organisms , commonly found on external and internal genitalia, are considered to be col onizers. No further testing performed. Specimen Narrative Performed At FASTING:UNKNOWN [facility] FASTING: UNKNOWN Resulting Agency Comment Performing Organization Information: Site ID: [id number] Name: [facility] Address: [address] [place] [phone] Director: Ed Roldan Performing Organization Address [facility] Phon e Number [employer] [place] [address] Manual differential (08/21/2019 2:00 AM METAL BOX [employer]KER)Only the most recent of3 results within the time period is included. Manual differential PERFORMED [facility] Neutrophils 80.0 (H) 39.0 - 69.0 % [facility] Lymphocytes 15.0 (L) 25.0 - 45.0 % [facility] Monocytes 2.0 0.0 - 10.0 % [facility] Eosinophils 3.0 0.0 - 5.0 % [facility] Basophils 0.0 0.0 - 1.0 % [facility] Metamyelocytes 0 % [facility] Promyelocytes 0 % [facility] Platelet slide review Yael adequate [facility] Anisocytosis Moderate [facility] Polychromasia Moderate [facility] Ovalocytes Moderate [facility] Specimen Performing Organization Address City/[facility] Phon e Number [facility] DEPARTMENT OF PATHOLOGY AND [address] [place] [phone] GENOMIC MEDICINE [facility] [address] [place] [address] Cv stress test (08/17/2019 8:37 AM METAL BOX MAKER) Resting HR 77 [facility] Resting BP 114 [facility] MUSE Peak MET Achieved 1.0 H MUSE Protocol Name REGADENO [facility] MUSE Time in Exercise 00:01:00 [facility] M[facility] Phase Max Systolic BP 120 [facility] Max Diastolic BP 60 H MUSE Max Heart Rate 90 H MUSE Max Predicted Heart 143 H MUSE Rate Target HR Formula (220 - Age)*100% [facility] MUSE Test Indication CHF EVALUATION FOR H MUSE ISCHEMIA Arrhy During Ex [facility] ECG Interp Before EX [facility] ECG Interp During Ex [facility] Ex Summary Comment [facility] MUSE Overall HR Response [facility] MUSE to Exercise Overall BP Response [facility] MUSE To Exercise Reason for Protocol Complete H MUSE Termination Stress Test Waveform interpreted in [facility] MUSE Impression report associated with image study. No interpretation is provided as part of this Stress ECG report.-- Specimen Narrative Performed At This result has an attachment that is no t available. Performing Organization Address City/[facility] Phon e Number [facility] MUSE [address] [place] [address] Nm myocardial perfusion (08/17/2019 8:37 AM [employer]OX [employer]KER) Specimen Narrative Performed At This result has an attachment that is no t available. [facility] Nuclear Cardiology and Card iac CT [address] [address] Myocardial Perfusion Imagin g Report Stress ECG tracings are available in MUSE, EP IC and [employer] All ECG interpretations are included in this report Pat.Name: AURY MOULTON Pat.ID: [id number] .Date: 08/17/2019 Refer.MD: DOROTA MURILLO MD Exam Time: 8:39:00 AM Study Type:Myocardial Perfusion Imaging Height: 58in BSA: 1.33 m2 Age: 7 1940,79Y Sex: FEMALE BP: 114/57 HR: 76 bpm Nuclear Tech:STEPHANIE Barrett, [facility] Pat. Stat.:Inpatient Room: [facility] A Tape Vol: 19.86, Nuclear Event ID:[id number] Order ID: [id number] Reason for Study:CHF, Evaluate for Ischemia History [...] Radiology Results In - 2019 11:46 AM [facility] Nuclear Cardiology and Cardiac CT [address] [address] [phone] Myocardial Perfusion I maging Report Stress ECG tracings are available in MUSE, [employer] formerly [employer] and [email or web address] All ECG interpretations are in cluded in this report Pat.Name: AURY MOULTON Pat.I D: [id number] St.Date: 08/17/2019 Refer.MD: DOROTA MURILLO MD Exam Time: 8:39:00 AM Study Type:Myocardial Perfusion Imaging Height: 58in BSA: 1.33 m2 Age: 7 1940,79Y Sex: FEMALE BP: 114/57 HR: 76 bpm Nuclear Tech:STEPHANIE Barrett, [facility] Pat. Stat.:Inpatient Room: [facility] A Tape Vol: 19.86, Nuclear Event ID:[id number] Order ID: [id number] Reason for Study:CHF, Evaluate for Ische misty [...] City/State/ZIP Code Phon e Number [facility] [address] [place] [address] CT Head Wo Contrast (08/16/2019 11:21 AM METAL [employer]OX [employer]KER) Specimen Narrative Performed At EXAMINATION: CT HEAD [...] No acute intracranial hemorrhage or mass effect. [id number] Procedure Note Hm Interface, Radiology Results Incoming - 08/16/2019 11:29 AM [employer]AL BOX [employer]KER EXAMINATION: CT HEAD WO CONTRAST CLINICAL HISTORY: [...] No acute intracranial hemorrhage or mass effect. [id number] Performing Organization Address City/[facility]/ZIP Code Phon e Number [address] [address] Hepatitis C antibody (08/14/2019 10:05 AM MET[employer]OX [employer]KER) Pathologist Sig nature Hepatitis C Ab Non-reactive Non-reactive [facility] Specimen Blood Performing Organization Address City/[facility]/ZIP Code Phon e Number [facility] DEPARTMENT OF PATHOLOGY AND [address] [place] [address] [phone] [address] Hepatitis B core antibody total (08/14/2019 10:05 AM METAL [employer]OX [employer]KER) Pathologist Sig nature Hepatitis B core Non-reactive Non-reactive [facility] Specimen Blood Performing Organization Address City/[facility]/ZIP [facility] [place] Phon e Number [facility] DEPARTMENT OF PATHOLOGY AND [address] [place] [address] [phone] [address] Hepatitis B surface antibody (08/14/2019 10:05 AM [employer]OX [employer]KER) Pathologist Sig nature Hepatitis B surface Non-reactive Non-reactive [facility] Specimen Blood Performing Organization Address City/State/ZIP Code Phon e Number [facility] DEPARTMENT OF PATHOLOGY AND [address] [place] [address] GENOMIC MEDICINE [facility] [address] [place] [address] IR Tunneled Dialysis Catheter Placement (08/13/2019 6:37 PM [employer]) Specimen Narrative Performed At PROCEDURE: HM [facility] Tunneled hemodialysis catheter placement Performing Radiologist: [...] and the performing provider. Duration of intraservice fcie-[id number]-avgb an esthesia/sedation: 19 minutes Access: Local anesthesia [...] internal jugular ve in Access technique: 5 Afghan micropuncture set Venography: Vein catheterized: N/A Indication [...] archived. Catheter Brand/Type: Palindrome Catheter size: 14.5 Afghan Catheter length: 19 cm tip to cuff [...] Estimated blood loss: Less than 10 cc [facility]-[id number] Procedure Note [facility], Radiology Results Incoming - 08/14/2019 7:40 AM [employer] PROCEDURE: Tunneled hemodialysis catheter placement Performing Radiologist: [...] and the performing provider. Duration of intraservice wsxy-yr-nldk an esthesia/sedation: 19 minutes Access: Local anesthesia [...] internal jugular ve in Access technique: 5 Afghan micropuncture set Venography: Vein catheterized: N/A Indication [...] archived. Catheter Brand/Type: Palindrome Catheter size: 14.5 Afghan Catheter length: 19 cm tip to cuff [...] Estimated blood loss: Less than 10 cc [facility]-[id number] Performing Organization Address [facility] Phon e Number [facility] [address] [place] [phone] Ionized calcium (08/13/2019 4:00 AM [employer]OX [employer]KER)Only the most recent of2 resultswithin the time period is included. Pathologist Sig nature pH 7.52 [facility] Ionized calcium 1.06 (L) 1.11 - 1.32 [facility] mmol/L HOSPITAL Specimen Plasma specimen Performing Organization Address [facility] Phon e Number [facility] DEPARTMENT OF PATHOLOGY AND [address] [place] [address] [phone] [address] Potassium level (08/12/2019 7:00 PM [employer]OX [employer]KER) Pathologist Sig nature Potassium 4.2 3.5 - 5.0 mEq/L [facility] Specimen Plasma specimen Performing Organization Address [facility] Phon e Number [facility] DEPARTMENT OF PATHOLOGY AND [address] [place] [address] [phone] [address] XR Chest 1 Vw Portable (08/12/2019 9:16 AM MET[employer]OX [employer]KER)Only the most recent of3 results within the time period is included. Specimen Narrative Performed At Study:XR CHEST 1 VW PORTABLE [facility] History: ICU pt stable with no clinica l status changes COMPARISON: 08/09/2019 IMPRESSION: A single view of the chest. Small to moderate bilatera l pleural effusions. No pneumothorax. Likely atelectasis of the lower lobes. Cardiac silhouette is enlarged, stable. Visualized o sseous structures are stable. [id number] Procedure Note Hm Interface, Radiology Results Incoming - 08/12/2019 9:26 AM [employer]OX [employer]ER Study:XR CHEST 1 VW PORTABLE History: ICU pt stable with no clinical status changes COMPARISON: 08/09/2019 IMPRESSION: A single view of the chest. Small to mod erate bilateral pleural effusions. No pneumothorax. Likely atelectasis of the lower lobes. Cardiac silhouette is enlarged, stable. Visualized osseous structures are stable. [id number] Performing Organization Address [facility] Phon e Number [facility] [address] [place] [address] B natriuretic peptide (08/12/2019 5:00 AM [employer]KER)Only the most recent of3 results within the time period is included. Pathologist [facility] BNP 2,296 (H) 0 - 100 pg/mL [facility] Specimen Blood Performing Organization Address [facility] Phon e Number [facility] DEPARTMENT OF PATHOLOGY AND [address] [place] [address] [phone] [address] Hemoglobin & hematocrit (08/11/2019 4:55 PM [employer]OX [employer]KER)Only the most recent of2 resultswithin the time period is included. Pathologist [facility] HGB 10.0 (L)Comment: 12.0 - 16.0 g/dL [facility] double HOSPITAL checked. HCT 30.2 (L) 37.0 - 47.0 % [facility] Specimen Blood Performing Organization Address [facility] Phon e Number [facility] DEPARTMENT OF PATHOLOGY AND [address] [place] [address] [phone] [address] Transfuse RBC (08/11/2019 1:35 PM [employer]OX [employer]KER)Only the most recent of2 resultswithin the time period is included.Occult blood, stool (08/11/2019 8:17 AM MET[employer]OX [employer]KER) Occult blood, Positive for Occult blood (A) [facility] stool Comment: HOSPITAL Specimen Information Specimen Source: Stool Specimen Site: Nonpreserved Specimen Stool - Nonpreserved Performing Organization Address [facility] Phon e Number [facility] DEPARTMENT OF PATHOLOGY AND [address] [place], [place] [address] [address] [address] Prepare RBC, 2 Units (08/11/2019 6:24 AM [employer]KER) Product name Red Blood Cells JEDDO -1, Leukored [facility] Unit number [id number] [facility] Product code [id number] [facility] Dispense status Transfused [facility] Blood expiration date [facility] Blood type code 5100 [facility] Blood type O POSITIVE [facility] Compatibility Compatible [facility] Product name Apheresis Red Cell JEDDO AS3 #2 LR [facility] Unit number [id number] [facility] Product code [id number] [facility] Dispense status Transfused [facility] Blood expiration date [facility] Blood type [facility] 5100 [facility] Blood type O POSITIVE [facility] Compatibility Compatible [facility] Specimen Blood Performing Organization Address [facility] Phon e Number [facility] DEPARTMENT OF PATHOLOGY AND [address] [place], [place] [address] [address] [address] Smear review (08/11/2019 4:35 AM METAL [employer]OX [employer]KER) Pathologist Sig nature Platelet slide review Yael adequate [facility] Anisocytosis Moderate [facility] Polychromasia Moderate [facility] Ovalocytes Moderate [facility] Specimen Performing Organization Address City/[facility] Phon e Number [facility] DEPARTMENT OF PATHOLOGY AND [address] [place], [place] [address] [address] [address] [place] Renal Doppler (08/09/2019 9:00 PM METAL BOX MAKER) Specimen Narrative Performed At EXAMINATION: US RENAL DOPPLER [facility] CLINICAL HISTORY: kristen COMPARISON: None. TECHNIQUE: Doppler [...] related to underlyin g medical/parenchymal renal disease. [facility]-[id number] Procedure Note Hm Interface, Radiology Results Incoming - 08/09/2019 10:35 PM METAL BOX MAKER EXAMINATION: US RENAL DOPPLER CLINICAL HISTORY: kristen [...] relate d to underlying medical/parenchymal renal disease. [facility]-[id number] Performing Organization Address City/[facility] Phon e Number [facility] [address] [place] [address] Body fluid consult (08/09/2019 11:49 AM METAL BOX MAKER) Body fluid consult Done [facility] Comment: HOSPITAL Approximately 1 granular cast per low power fiel d. One hyaline cast per low power field. Small cluster of tubular epithelial kallie ls. No tubular epithelial casts seen. Findings reviewed with Dr. Racquel weaver on 08/09/2019 Reviewed by Camila Richard M.D. 08/09/2019 Specimen Fluid Performing Organization Address City/[facility] Phon e Number [facility] DEPARTMENT OF PATHOLOGY AND [address] [place] [address] GENOMIC MEDICINE [facility] [address] [place] [address] Urinalysis, automated with microscopy (08/09/2019 11:49 AM METAL BOX MAKER) Pathologist Sig nature Color, UA Straw [facility] Appearance, UA Clear [facility] Specific gravity, UA 1.006 1.001 - 1.035 [facility] [facility] pH, UA 5.0 5.0 - 8.5 [facility] Protein, UA 3+ (A) Negative [facility] Glucose, UA 3+ (A) Negative [facility] Ketones, UA Negative Negative [facility] Bilirubin, UA Negative Negative [facility] Blood, UA Small (A) Negative [facility] Nitrite, UA Negative Negative [facility] Urobilinogen, UA <2.0 <2.0 [facility] Leukocyte esterase, Negative Negative [facility] Epithelial cells, UA <1 /HPF [facility] WBC, UA None seen 0 - 4 /HPF [facility] RBC, UA 2 0 - 5 /HPF [facility] Bacteria, UA Few None seen [facility] Granular casts, UA 1 0 - 1 /LPF [facility] Hyaline casts, UA 1 /LPF [facility] Yeast, UA None seen [facility] Yeast with None seen [facility] pseudohyphae, HOSPITAL Specimen Urine Performing Organization Address [facility] Phon e Number [facility] DEPARTMENT OF PATHOLOGY AND [address] [place] [address] [address] Barnett antibody (08/09/2019 11:45 AM METAL BOX MAKER) Pathologist [facility] Barnett antibody <0.2 0.0 - 0.9 [facility] Barnett antibody Negative [facility] Comment: [facility] Anti-Barnett antibodies occurs in 30-35% of system ic lupus erythematosus HOSPITAL (SLE) cases, but is very specific for SLE. It may also present in mixed connective-tissue disease (MCTD). Specimen Serum Performing Organization Address City/[facility] Phon e Number [facility] DEPARTMENT OF PATHOLOGY AND [address] [place], [place] [address] [address] [address] Glomerular basement membrane Ab IgG (IFA) (08/09/2019 11:45 AM METAL BOX MAKER) Glomerular Negative Negative [facility] basement [...] biopsy. Test developed and characteristics determined by [employer]. See Compliance Statement D: [employer].60mo/ CS Performed by [employer], [address] [place] [address] [email or web address], Dusty Rees MD, Lab. Director Specimen Serum Performing Organization Address [facility] Phon e Number [facility] [address] [place] [address] [facility] [address] [place] [address] DNA Ab screen (08/09/2019 11:45 AM METAL BOX MAKER) Pathologist [facility] DNA Ab screen Not Detected Not-Detected [facility] Specimen Blood Performing Organization Address [facility] Phon e Number [facility] DEPARTMENT OF PATHOLOGY AND [address] [place] [address] [address] [address] TORITO titer (08/09/2019 11:45 AM METAL BOX MAKER) Pathologist [facility] TORITO titer 1:160 (A) Not-Detected [facility] TORITO pattern Speckle (A) Not-Detected [facility] Specimen Blood Performing Organization Address [facility] Phon e Number [facility] DEPARTMENT OF PATHOLOGY AND [address] [place] [address] [address] [address] Anti-neutrophilic cytoplasmic Abs panel (08/09/2019 11:45 AM METAL BOX MAKER) Pathologist Sig nature ANCA screen Negative Negative [facility] Specimen Blood Performing Organization Address City/[facility] Phon e Number [facility] DEPARTMENT OF PATHOLOGY AND [address] [place] [address] [phone] [address] C3 complement component (08/09/2019 11:45 AM METAL BOX MAKER) Pathologist [facility] C3 complement 92 90 - 180 mg/dL [facility] L Specimen Plasma specimen Performing Organization Address City/[facility] Phon e Number [facility] DEPARTMENT OF PATHOLOGY AND [address] [place] [address] [phone] [place] [address] C4 complement component (08/09/2019 11:45 AM METAL BOX MAKER) Pathologist Sig nature C4 complement 38 10 - 40 mg/dL [facility] Specimen Plasma specimen Performing Organization Address City/[facility] Phon e Number [facility] DEPARTMENT OF PATHOLOGY AND [address] [place] [address] TORITO (08/09/2019 11:45 AM METAL BOX MAKER) TORITO screen Positive (A) Negative [facility] Comment: HOSPITAL Test performed using [employer] DAPI TORITO kit (Indirect Immunofluorescence Assay) for Anti-Nuclear Antibody on [employer] 160 Analyzer. Specimen Blood Performing Organization Address [facility] Phon e Number [facility] DEPARTMENT OF PATHOLOGY AND [address] [place] [address] D-dimer (08/09/2019 5:20 AM METAL BOX MAKER) D-dimer 2.05 (H) 0.00 - 0.40 [facility] Comment: ug/mL FEU HOSPITAL Units are ug/ml Fibrinogen Equivalent Unit. When combined with low clinical probability, D-dimer r esults of less than 0.5 ug/ml FEU have a good negative pred ictive value in excluding PE or DVT. For D-dimer results greater than 0.5 ug/ml FEU [facility] er testing is indicated if PE or DVT is suspected clini lainey. Elevated D-dimer results have been reported in DVT, PE , and DIC cases and may indicate the presence of a clot. D-dimer results may be elevated due to old age, pregna ncy, inflammatory diseases, trauma, post-operative states, sepsis, and malignancies. Specimen Blood Performing Organization Address City/[facility] Phon e Number [facility] DEPARTMENT OF PATHOLOGY AND [address] [place] [address] Venous blood gas (08/09/2019 5:20 AM METAL BOX MAKER) Pathologist [facility] nature pH, venous 7.28 (L) 7.32 - 7.42 [facility] pCO2, venous 44 (L) 45 - 51 mmHg [facility] pO2, venous 39 25 - 40 mmHg [facility] Base excess, venous -6 (L) -2 - 2 meq/L [facility] O2 saturation, 66 40 - 70 % [facility] Bicarbonate, venous 20.2 (L) 21.0 - 28.0 [facility] mmol/L HOSPITAL Specimen Blood Performing Organization Address City/[facility] Phon e Number [facility] DEPARTMENT OF PATHOLOGY AND [address] [place] [address] [phone] [address] Creatine kinase, total (CPK) (08/09/2019 4:00 AM METAL BOX MAKER) Pathologist Sig nature Creatine kinase 42 26 - 192 U/L [facility] L Specimen Plasma specimen Performing Organization Address City/[facility] Phon e Number [facility] DEPARTMENT OF PATHOLOGY AND [address] [place] [address] [phone] [address] Dellroy lambda free light chain with ratio (08/09/2019 12:17 AM METAL BOX MAKER) Pathologist Sig nature Dellroy light chain 164.45 (H) 3.30 - 19.40 [facility] mg/L [facility] Lambda light chain 95.70 (H) 5.70 - 26.30 [facility] mg/L [facility] Dellroy lambda ratio 1.72 (H) 0.26 - 1.65 [facility] Specimen Plasma specimen Performing Organization Address City/[facility] Phon e Number [facility] DEPARTMENT OF PATHOLOGY AND [address] [place] [address] [phone] [address] Serum electrophoresis (08/09/2019 12:17 AM METAL BOX MAKER) Protein 5.8 (L) 6.3 - 8.3 [facility] Comment: g/dL [facility] Envswzo1086.6-7.0 g/dL HOSPITAL 1 xqte4323.4-7.6 g/dL 7 months-2tdtj892.1-7.3 g/dL 1-2 .6-7.5 g/dL >3 ehelj179.0-8.0 g/dL 18-4251990.3-8.3 g/dL SPE albumin 3.69 (L) 4.00 - 5.30 [facility] g/dL [facility] SPE alpha 1 0.16 0.10 - 0.25 [facility] g/dL [facility] SPE alpha 2 0.70 0.58 - 0.84 [facility] g/dL [facility] SPE beta 0.56 0.50 - 1.10 [facility] g/dL [facility] SPE gamma 0.69 0.60 - 1.30 [facility] g/dL [facility] SPE extended See [facility] interpretation CommentComment: [facility] Total protein and HOSPITAL albumin are decreased suggesting protein malnutrition. SPE interpretation See [facility] CommentComment: FAITHSHANTELLE Wiggins [facility] ; Gabino Bazan MD; Sharon Zhou, PhD; Home Gooden MD Specimen Serum Performing Organization Address [facility] Phon e Number [facility] DEPARTMENT OF PATHOLOGY AND [address] [place] [address] 0 [place] [address] Lactic acid level (08/09/2019 12:17 AM METAL BOX MAKER) Pathologist Sig nature Lactic acid 0.8 0.5 - 2.2 mmol/L [facility] Specimen Blood Performing Organization Address [facility] Phon e Number [facility] DEPARTMENT OF PATHOLOGY AND [address] [place] [address] 0 [place] [address] Us carotid duplex (08/08/2019 9:20 PM METAL BOX MAKER) Specimen Narrative Performed At [facility] Carotid A rtery Duplex Report [address] [place] [address] For billing and quality technician purposes, the categorization of the degree of the stenosis of this exam is based on criteria described i n the IAC carotid stenosis grading white paper( www.intersocietal.org/Va scular) and Josias Christian., Radha QuachB., et al. Carotid artery stenosis: morin-scale and Doppler US diagnosis-- Society of Radiologists in Ultrasound Consensus Conference. Radio logy. 2002; 229(2):340-6. Pat.Name: AURY MOULTON Pat.ID: [id number]Date: 08/08/2019 Refer.MD: NITA ORLANDO MD Exam Time: 8:33:00 PM Study Type:Ge YEAGER Age: 7 1940,79Y Sex: FEMALE Sonogrphr: Don Garcia, RVS, JEVON Pat. Stat.:Inpati ent Room: [facility] F10 1006 Tape Vol : ISMA, CPT - 4: 78857 Echo Libby nt ID:[id number] Order ID: [id number] Reason for Study:Dizziness. History of C KD, [...] Radiology Results In - 2019 12:28 AM [facility] Vascular Ultrasound Laboratory Carotid Artery Dupl ex Report [address] [address] , [place] [address] For billing and quality technician purposes, the rachel gorization of the degree of the stenosis of this exam is based on criteria described in the IAC carotid stenosis grading white paper( www.intersocietal.org/Vascular) and Josias Christian., Sandeep Quach., et al. Carotid artery stenosis: morin-scale and Doppler US diagnosis--Society of Radiologists in Ultrasound Consensus Conference. Radiology. 2003 Nov; 229(2):340-6. Pat.Name: AURY MOULTON Pat.I D: [id number] St.Date: 08/08/2019 Refer .MD: NITA ORLANDO MD Exam Time: 8:33:00 PM Study Type:Carotid Age: 7 1940,79Y Sex: FEMALE Sonogrphr: ADALI Thakur, JEVON Pat. Stat.:Inpatient Room: [address] Vol: ISMA, CPT - 4: 28235 Echo Event ID:[id number] Order ID: [id number] Reason for Study:Dizziness. History of C KD, [...] Eduard Atkinson MD, RPVI Performing Organization Address City/State/ZIP Code [facility] e Number [facility] [address] [place] [address] US Renal (08/08/2019 3:35 PM METAL BOX MAKER) Specimen Narrative Performed At EXAMINATION: US RENAL [...] No stones or hydronephrosis on either side. [facility]-[id number] Procedure Note Hm Interface, Radiology Results Incoming - 08/08/2019 6:36 PM METAL BOX MAKER EXAMINATION: US RENAL CLINICAL HISTORY: obstruction COMPARISON: [...] No stones or hydronephrosis on either side. [facility]-[id number] Performing Organization Address City/State/ZIP Code Phon e Number [facility] [address] [place] [address] Urinalysis screen and microscopy, with reflex to culture (08/08/2019 1:43 PM METAL BOX MAKER) Specimen site Clean catch [facility] Color, UA Straw [facility] Appearance, UA Hazy [facility] Specific gravity, 1.006 1.001 - 1.035 [facility] pH, UA 5.0 5.0 - 8.5 [facility] Protein, UA 2+ (A) Negative [facility] Glucose, UA 3+ (A) Negative [facility] Ketones, UA Negative Negative [facility] Bilirubin, UA Negative Negative [facility] Blood, UA Moderate (A) Negative [facility] Nitrite, UA Negative Negative [facility] Urobilinogen, UA <2.0 <2.0 [facility] Leukocyte esterase, Negative Negative [facility] WBC, UA 10 (H) 0 - 4 /HPF [facility] RBC, UA 6 (H) 0 - 5 /HPF [facility] Bacteria, UA Few None seen [facility] Yeast, UA None seen [facility] Yeast with None seen [facility] pseudohyphae, UA HOSPITAL Amorphous crystals Few [facility] Granular casts, UA 3 (H) 0 - 1 /LPF [facility] Specimen Urine Performing Organization Address [facility] Phon e Number [facility] DEPARTMENT OF PATHOLOGY AND [address] [place] [address] [address] [address] Urea nitrogen, urine, random (08/08/2019 1:43 PM METAL BOX MAKER) Pathologist Sig nature Urea nitrogen, urine, 184 mg/dL [facility] Specimen Urine Performing Organization Address [facility] Phon e Number [facility] DEPARTMENT OF PATHOLOGY AND [address] [place] [address] [phone] [address] Sodium level, urine, random (08/08/2019 1:43 PM METAL BOX MAKER) Pathologist Sig nature Sodium, urine, random 109 mEq/L [facility] Specimen Urine Performing Organization Address [facility] Phon e Number [facility] DEPARTMENT OF PATHOLOGY AND [address] [place] [address] [address] [address] Protein, urine, random (08/08/2019 1:43 PM METAL BOX MAKER) Pathologist Sig nature Protein, urine random 153 mg/dL [facility] Specimen Urine Performing Organization Address [facility] Phon e Number [facility] DEPARTMENT OF PATHOLOGY AND [address] [place] [address] [phone] [address] Creatinine level, urine, random (08/08/2019 1:43 PM METAL BOX MAKER) Pathologist Sig nature Creatinine, urine, 23 mg/dL [facility] Specimen Urine Performing Organization Address [facility] Phon e Number [facility] DEPARTMENT OF PATHOLOGY AND [address] [place] [address] [place] [address] Troponin (08/08/2019 4:04 AM METAL BOX MAKER)Only the most recent of3 resultswithin the time period is included. Troponin 0.075 (H) 0.000 - 0.040 [facility] Comment: ng/mL HOSPITAL In patients suspected of [...] ng/mL Specimen Plasma specimen Performing Organization Address City/State/ZIP Code Phon e Number [facility] DEPARTMENT OF PATHOLOGY AND [address] [place] [phone] GENOMIC MEDICINE [facility] [address] [place] [address] Comprehensive metabolic panel (08/08/2019 2:24 AM METAL BOX MAKER)Only the most recent of3 resultswithin the time period is included. Sodium 140 135 - 148 [facility] mEq/L [facility] Potassium 4.7 3.5 - 5.0 [facility] mEq/L [facility] Chloride 109 98 - 112 mEq/L [facility] CO2 16 (L) 24 - 31 mEq/L [facility] Anion gap 15@ANIO 7 - 15 mEq/L [facility] BUN 67 (H) 8 - 23 mg/dL [facility] Creatinine 4.80 (H) 0.50 - 0.90 [facility] mg/dL [facility] Glucose 180 (H) 65 - 99 mg/dL [facility] Calcium 7.9 (L) 8.8 - 10.2 [facility] mg/dL [facility] Protein 6.0 (L) 6.3 - 8.3 g/dL [facility] Comment: HOSPITAL Npngktw5846.6-7.0 g/dL 1 vkxn6625.4-7.6 g/dL 7 months-4wgpu706.1-7.3 g/dL 1-2 .6-7.5 g/dL >3 qhfsy183.0-8.0 g/dL 18-2716675.3-8.3 g/dL Albumin 2.1 (L) 3.5 - 5.0 g/dL [facility] A/G ratio 0.5 (L) 0.7 - 3.8 [facility] Alkaline phosphatase 58 35 - 104 U/L [facility] AST 19 10 - 35 U/L [facility] ALT 12 5 - 50 U/L [facility] Total bilirubin <0.2 0.0 - 1.2 [facility] mg/dL HOSPITAL Specimen Plasma specimen Performing Organization Address City/[facility] Phon e Number [facility] DEPARTMENT OF PATHOLOGY AND [address] [place] [address] [phone] [address] Thyroid stimulating hormone (08/08/2019 1:40 AM METAL BOX MAKER) Pathologist Sig nature TSH 4.68 (H) 0.27 - 4.20 uIU/mL [facility] Specimen Plasma specimen Performing Organization Address City/[facility] Phon e Number [facility] DEPARTMENT OF PATHOLOGY AND [address] [place] [address] [phone] [address] T4, free (08/08/2019 1:40 AM METAL BOX MAKER) Pathologist Sig nature T4, free 1.3 0.9 - 1.7 ng/dL [facility] L Specimen Plasma specimen Performing Organization Address City/[facility] Phon e Number [facility] DEPARTMENT OF PATHOLOGY AND [address] [place] [address] [phone] [address] Hemoglobin A1c (08/08/2019 1:40 AM METAL BOX MAKER) Hemoglobin A1C 8.3 (H) 4.0 - 5.6 % [facility] Comment: HOSPITAL HbA1c cutoffs for diagnosing diabetes: [...] 1 diabetes. Specimen Blood Performing Organization Address [facility] Phon e Number [facility] DEPARTMENT OF PATHOLOGY AND [address] [place] [address] GENOMIC MEDICINE [id number] [place] [address] Lipid panel (08/08/2019 1:40 AM METAL BOX MAKER) Cholesterol 259 (H) <200 mg/dL [facility] Triglycerides 179 (H) <150 mg/dL [facility] HDL cholesterol 48 >40 mg/dL [facility] LDL cholesterol 188 (H)Comment: <100 mg/dL [facility] Result obtained by [facility] direct [facility] measurement [facility] Comment: [facility] Total Cholesterol (mg/dL) HOSPIT AL <200 Desirable [...] mg/dL) Specimen Plasma specimen Performing Organization Address City/State/[facility] Phon e Number [facility] DEPARTMENT OF PATHOLOGY AND [address] [place], [place] [address] [address] [address] CRITICAL CARE (08/07/2019 8:33 PM METAL BOX MAKER) Narrative Performed At Gabino Feliz MD 0 [...] old charts Lipase level (08/07/2019 6:42 PM METAL BOX MAKER) Pathologist Sig nature Lipase 87 (H) 13 - 60 U/L [facility] Specimen Plasma specimen Performing Organization Address [facility] Phon e Number [facility] DEPARTMENT OF PATHOLOGY AND [address] [place] [address] [address] Amylase level (08/07/2019 6:42 PM METAL BOX MAKER) Pathologist Sig nature Amylase 100 28 - 100 U/L [facility] Specimen Plasma specimen Performing Organization Address [facility] Phon e Number [facility] DEPARTMENT OF PATHOLOGY AND [address] [place] [address] [address] [phone] Echocardiogram complete w contrast and 3D if needed (08/07/2019 12:45 AM METAL BOX MAKER) Specimen Narrative Performed At [facility] Echo cardiography Report [address] [facility] [address] [id number] Pat.Name: AURY MOULTON Pat.ID: [id number]Date: 08/08/2019 Refer.MD: NITA ORLANDO MD Exam Time: 12:19:00 AM Study Type:Haleigh lowery Echo Height: 58in Weight: 106lb BSA: 1.39 m2 Ag e: 1940,79Y Sex: FEMALE BP: 168/77 HR: 70 bpm Sonogr phr: Delmy Warner, RCS, RVT Pat. Stat.:Inpatient Room: ED-20 CPT - 4: 26761, 14157, 87772 Study Status:[facility] Echo Event ID:[id number] Order ID: [id number] Reason for Study:SOB Procedures: 2D Echo, 2D Echo, Colorflow Doppler, Portable Race: C SUMMARY: LV size is mblp-do-irlxdbebfu enlarged. LV EF is moderately to severely depressed. Regional wall motion abnormalities prese nt. Estimated EF is 30-34%. Pleural effusion is present. LV filling pressure is borderline elevat ed. Estimated PA systolic pressure is 33-38 mmHg, assuming a mean RAP of 0-5 mmHg. FINDINGS: LV: LV size is qgpj-yn-puiacyqc ly enlarged. LV EF is moderately to [...] of 0-5 mmHg. MEASUREMENTS: 2D Parasternal Long [place] Ao An 1.7 cm LVPWd 0.67 cm [...] Radiology Results In - 2019 10:43 PM [facility]ER Echocardiography Report [address] [place] [address] Pat.Name: AURY MOULTON Pat.I D: [id number] St.Date: 08/08/2019 Refer .MD: NITA ORLANDO MD Exam Time: 12:19:00 AM Study Type:Routine Echo Height: 58in Weigh t: 106lb BSA: 1.39 m2 Age: 7 1940,79Y Sex: FEMALE BP: 168/77 HR: 70 bpm Sonog rphr: Delmy Warner RCS, RVT Pat. Stat.:Inpatient Room: ED-20 CPT - 4: 02808, 41506, 23707 Study Status:Final Echo Event ID:[id number] Order ID: [id number] Reason for Study:SOB Procedures: 2D Echo, 2D Echo, Colorflow Doppler, Portable Race: C SUMMARY: LV size is ojje-ct-ybqzxhsuxo enlarged. LV EF is moderately to severely depressed. Regional wall motion abnormalities prese nt. Estimated EF is 30-34%. Pleural effusion is present. LV filling pressure is borderline elevat ed. Estimated PA systolic pressure is 33-38 mmHg, assuming a mean RAP of 0-5 mmHg. FINDINGS: LV: LV size is [id number] enlarged. LV EF is moderately to severely [...] of 0-5 mmHg. MEASUREMENTS: 2D Parasternal Long [place] Ao An 1.7 cm LVPW d 0.67 [...] City/State/ZIP Code Phon e Number [id number] [place] [address] after 04/26/2019 Insurance Payer Benefit Plan / Subscriber ID Effective Dates Phone Addre ss Type Group HUMANA MEDICARE HU[employer]NA HMO GOLD [id number] 2019-Present HMO PLUS MEDICARE Advance Directives For more information, please contact: [phone] Type Date Recorded Patient Defence Intelligence Analyst Explanati on Advance Directives, Living Will and Medical Power of History Teach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
--- OUTSIDE RECORDS SUMMARY | 2020-04-26 19:20 | XMS REPORT | Continuity of Care Document ---
:1940 Author Organization [facility] t Address [address] [place] [address] Care Team Providers Name Role Phone Pcp Primary Care Physician Unavailable Viktoria Estrada MD Attending Clinician Suzi HENDRICKS Attending Clinician Unavailable Ez HENDRICKS Attending Clinician Unavailable Alvino EHNDRICKS Attending Clinician Unavailable Marc Huertas MD Attending Clinician Jared Chase MD Attending Clinician [phone] Merchant RIOS Attending Clinician Asha Abraham MD Attending Clinician Don Panda MD Attending Clinician Estrellita Alvarez MD Attending Clinician Elsa Vidal CRNA Attending Clinician Lisandra Levine MD Attending Clinician Jena PRATHER Attending Clinician Unavailable MARC HUERTAS Attending Clinician Unavailable Rashaun Murillo MD Attending Clinician Jason Magana MD Attending Clinician [phone] Héctor Attending Clinician Andre Feliz MD Attending Clinician ASHA ABRAHAM Admitting Clinician Unavailable CHIDI Admitting Clinician Unavailable Payers Payer Name Policy Type Policy Effective Date Expiration Date Sour ce Number HUMANA [id number] 2019 [place] MEDICAREMANA O 00:00:00 Method ist GOLD PLUS [id number] HUMANA - MEDICARE [id number] [address] [facility] - MGD CARESONIAA 00:00:00 Medical Ce nter MEDICARE [id number] 2019 -PresentMaps Contracted Problems Condition Condition Condition Status [...] er Closed Closed Disease Active Overview: Ramón ferreira fracture fracture 3-17 Added Method i of left of left 00:00: automatic st hip hip 00 ally from request for surgery [id number] Gastrointe Gastrointe Disease Active [place] stinal stinal 2-23 Methodi bleed bleed 00:00: st 00 Acute Acute Disease Active [place] pulmonary pulmonary 2-18 Meth nery edema edema 00:00: st 00 Hematoma Hematoma Disease Active [place] of groin of groin 9-18 Method i 00:00: st 00 PAD PAD Disease Active Overview: Ramón ferreira (periphera (periphera 8-22 Added Me thodi l artery l artery 00:00: automatic st disease) disease) 00 ally from request for surgery [id number] st Assessmen t & Plan: Improved symptoms. Continue medical optimizat ion. Continue cilostazo l. Follow-up in 6 months with ABIs and TBI's. 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 Social History Social Habit Start Date Stop Date Quantity Comments Source History of Current sm[facility] use Sex Assigned At [facility] ethodist Tobacco use and 2019-09-10 2019-09-10 Never used [facility] ethodist exposure 00:00:00 00:00:00 Alcohol intake 2019-09-10 2019-09-10 Current [facility] thodist 00:00:00 00:00:00 non-drinker of alcohol (finding) Tobacco Comment 2017-02-25 2017-02-25 socially [facility] ethodist 00:00:00 00:00:00 Smoking Status Start Date Stop Date Source Former smoker 2019-09-10 00:00:00 2019-09-10 00:00:00 [place] Jew Medications Ordered Filled Start Stop Current Ordering Indication Dosage Frequency Signature Comments Components Source Medication Medication Date Date Medication? Clinician (SIG) Name Name hydrALAZINE 2019-06- Yes Essential 25mg Q.[id number] Take 1 [place] (APRESOLINE 06-24 hypertensio [id number] tablet (2 5 Methodi ) 25 MG 00:00: 23:59 n 3D mg total) st tablet 00 :00 by mouth 3 (three) times a day. aspirin 2019- Yes 81mg QD Take 81 mg [place] (ECOTRIN) 01-03 by mouth Method i 81 MG 11:23: daily. st enteric 33 coated tablet latanoprost Yes 1[drp] QD Administer Bai (XALATAN) 01-03 1 drop to Metho di 0.005 % 11:23: both eyes st ophthalmic 33 nightly. solution clotrimazol 2020- No Dermatitis Q.5D Apply [place] e-betametha 01-03 topically Me thodi sone 00:00: [...] ness) for up to 30 days. QUEtiapine 2019- No Dementia 25mg QD Take 1 [place] (SEROqueL) 12-13 07-26 with tablet (25 Me thodi 25 MG 00:00: 23:59 behavioral mg total) st tablet 00 :00 disturbance by mouth , nightly unspecified for 30 dementia days. type (HCC) polyethylen 2019- No Constipatio 17g QD Take 17 g Bai e glycol 12-13 07-26 n, by mouth Method i (MIRALAX) 00:00: 23:[address] 17 gram 00 :00 constipatio 30 days. packet n type docusate 2019- No Constipatio 100mg Q.5D Take 1 Bai sodium 6-26 07-26 n, capsule Methodi (Colace) 00:00: 23:59 unspecified ([address] 100 MG 00 :00 constipatio total) by capsule n type mouth 2 (two) times a day for 30 days. levothyroxi 2020-0 Yes Hypothyroid 50ug QD Take 1 Bai ne - ism, tablet (50 Methodi (SYNTHROID) 00:00: unspecified mcg total) st 50 mcg 00 type by mouth tablet daily. pentoxifyll 2020-0 Yes PAD TAKE 1 [place] in[place] -28 (peripheral TABLET BY Met patel (TRENTal) 00:00: artery MOUTH st 400 mg CR 00 disease) TWICE A tablet ([facility]) DAY blood sugar 2019-0 Yes Type 2 [facility] diabetes test strip Methodi strips 00:00: mellitus two times st (glucose 00 with daily for blood) hyperglycem blood strip test ia, with sugar strips long-term current use of insulin ([facility]) pentoxifyll 2019-0 2020- No PAD TAKE 1 Hetal ston ine -20 - (peripheral TABLET BY Me oliver (TRENTal) 00:00: 00:[address] 400 mg CR 00 :00 disease) TWICE A tablet (HCC) DAY amLODIPine 2019-0 Yes 5mg QD Take [address] (NORVASC) 5 4-15 by mouth Luke s - MG tablet 17:33: daily . Medic al [address] [place] [address] aspirin 81 2020-0 Yes 81mg QD Take [address] MG EC 4-15 by mouth [facility] - tablet 17:33: daily. Medical [address] [place] [address] atorvastati 2019-0 Yes 20mg QD Take [address] n (LIPITOR) 4-15 by mouth Luke s - 20 MG 17:33: daily. Medical tablet [address] [place] [address] carvediloL 2019-0 Yes hypertensio 12.5mg Take 12.[address] (COREG) 4-15 n mg by [facility]ukes - 12.5 MG 17:33: mouth 2 Medical tablet 00 (two) Center times daily with breakfast and dinner Hold foe SBP < 110 or HR < 60 . docusate 2020-0 Yes constipatio 100mg Q.5D Take [address] sodium 4-15 n mg by [facility]ukes - (COLACE) 17:33: mouth 2 Medica l 100 MG 00 (two) Center capsule times daily. polyethylen 2020-0 Yes constipatio 17g Take [address] e glycol 4-15 n by mouth [facility]ukes - (GLYCOLAX) 17:33: every 3 Medi daniel 17 gram 00 (three) Center packet days. hydrALAZINE 2020-0 Yes hypertensio 25mg Q.[id number] Take [address] (APRESOLINE 4-15 n [id number] by mouth 3 [facility] - ) 25 [...] (four) hours as needed for Pain. insulin 2020-0 2020- No 5U Q.5D Inject 5 CHI S t glargine 4-15 04-15 Units Lukes - (LANTUS) 15:48: 00:00 subcutaneo Me dical 100 unit/mL 57 :00 usly 2 Center injection (two) times daily Use as directed . hydrocortis 2020-0 2020- No hemorrhoids 25mg Q.5D Place [address] one 4-04 04-15 mg [facility]ukes - (ANUSOL-HC) 00:00: 23:59 rectally 2 Medical 25 mg 00 :00 (two) Center suppository times daily. epoetin 2020-0 2020- No 3000U Q.[id number] Inject 1 Bai misa-epbx 3-27 04-26 [id number] mL (3,000 Methodi (RETACRIT) 00:00: 23:[address] 3,000 00 :00 total) unit/mL under the solution skin 3 injection (three) times a week for 30 days. amLODIPine 2019- 2020- No 5mg QD Take 1 [place] (NORVASC) 5 09-12-25 tablet (5 Me thodi mg tablet 00:00: 23:59 mg total) st 00 :00 by mouth daily for 30 days. acetaminoph 2019- 2020- No 650mg Q4H Take 2 [place] en 09-11-24 tablets Methodi (TYLENOL) 00:00: 23:59 ([address] 325 MG 00 :00 total) by tablet mouth every 4 (four) hours as needed for mild pain, moderate pain or fever for up to 30 days. heparin 2019-0 2020- No 5000U Q.5D Inject 1 [place] sodium,porc 09-11 04-24 mL (5,000 Me thodi ine 00:00: 23:[address] (HEParin, 00 :00 total) porcine,) under the 5,000 skin every unit/mL 12 injection (twelve) hours for 30 days. insulin 2019- 2020- No 0U Q.[id number] Inject 0-5 Bai lispro 09-11-24 [id number] Units Metho di (HumaLOG) 00:00: 23:[address] 100 unit/mL 00 :00 skin 3 injection (three) times a day with meals for 30 days. LORazepam 2019- 2020- No .5mg Take 0.[address] (ATIVAN) 318 04-10 mg by [facility] - 0.5 MG 00:00: 00:00 mouth Medical tablet 00 :00 every 8 Center (eight) hours as needed for Anxiety. lancets 2019-0 Yes Type 2 Use one [place] misc 311 diabetes lancet two Metho di 00:00: mellitus times a st 00 with day for hyperglycem glucose ia, with long-term current use of insulin ([facility]) blood sugar 2019-0 2020- No Type 2 Use one [place] diagnostic 3- 03-25 diabetes test strip Methodi strips 00:00: 00:00 mellitus two times s t (glucose 00 :00 with daily for blood) hyperglycem glucose strip test ia, with strips long-term current use of insulin ([facility]) levoFLOXaci 2020- No Acute Take 2 tab Abi n 3-10 09-11 cystitis PO daily Method i (LEVAQUIN) 00:00: 00:[address] 250 MG 00 :00 hematuria day and tablet then 1 tab PO every 48 hours for 10 days total duration blood-gluco Yes Type 2 Use to [facility]auer se meter 08-26 diabetes check Method i misc 00:00: mellitus blood st 00 with glucose hyperglycem twice ia, with daily long-term current use of insulin (HCC) blood-gluco 2020- No Type 2 Use as H [facility] se meter 08-26 diabetes instructed Methodi kit 00:00: 23:[address] 00 :00 with hyperglycem ia, with long-term current use of insulin (HCC) benzonatate 2019- No Cough 100mg Q.[id number] Take 1 [place] (TESSALON 08-26 [id number] capsule Methodi PERLES) 100 00:00: 00:00 3D ([address] MG capsule 00 :00 total) by mouth 3 (three) times a day as needed for cough for up to 10 days. bromphenira 2019- No Cough 5mL Q.[id number] Take 5 mL [place] mine-pseudo 08-26 [id number] by mouth 3 Methodi eph-DM 00:00: 00:00 [...] times a day for 30 days. hydrALAZINE 2020- No 25mg Q.[id number] Take 1 [place] (APRESOLINE 08-20 [id number] tablet (25 Methodi ) 25 MG 00:00: 23:59 3D mg total) st tablet 00 :00 by mouth every 8 (eight) hours for 30 days. insulin 2019- No 5U Q.5D Inject 5 [place] GLARGINE 08-20- Units Methodi (LANTUS) 00:00: 23:[address] 100 unit/mL 00 :00 skin 2 injection (two) (vial) times a day for 30 days. atorvastati 2019- No 20mg QD Take 1 Hetal stohanna n (LIPITOR) 08-20 tablet (20 M ethodi 20 MG 00:00: 23:59 mg total) st tablet 00 :00 by mouth nightly for 30 days. Default OP ins pantoprazol No 40mg QD Take 1 Hetal maryn e 08-20 tablet (40 Methodi (PROTONIX) 00:00: 23:59 mg total) s t 40 MG EC 00 :00 by mouth tablet daily for 30 days. insulin No 25U Q.5D Inject 25 [place] detemir 219 02-19 Units Methodi (LEVEMIR 10:16: 00:[address] FLEXPEN 51 :00 skin 2 SUBQ) (two) times a day. levothyroxi 2019- No Hypothyroid TAKE 1 [facility] 1- 04-28 ism, TABLET BY Methodi (SYNTHROID) 00:00: 00:[address] 50 mcg 00 :00 type EVERY DAY tablet glimepiride 2018-06- No Type 2 TAKE 1 H seferino (AMARYL) 4 06-22-03 diabetes TABLET BY Methodi MG tablet 00:00: 00:[address] 00 :00 with EVERY DAY hyperglycem BEFORE ia, with BREAKFAST long-term current use of insulin (HCC) levothyroxi 2018-06- No Hypothyroid TAKE 1 [place] ne 0-17 01-12 ism, TABLET BY Methodi (SYNTHROID) 00:00: 00:[address] 50 mcg 00 :00 type EVERY DAY tablet carvedilol 2018-06- No Essential TAKE 1 [place] (COREG) 0 03-03 hypertensio TABLET BY Methodi 6.25 MG 00:00: 00:[address] tablet 00 :00 TWICE A DAY LEVEMIR 2019- No INJECT SUB Hetal ashby FLEXTOUCH 03-02 35 UNITS Metho di U-100 00:00: 00:[address] INSULN 100 00 :00 HOURS unit/mL (3 mL) insulin pen lancets 2019- No Type 2 Use one [place] misc 12-28 diabetes lancet two Meth nery 00:00: 00:[address] 00 :00 with day for hyperglycem glucose ia, with long-term current use of insulin ([facility]) blood-gluco 2019- No Type 2 Use as H seferino se meter 12-28 diabetes instructed Methodi kit 00:00: 00:[address] 00 :00 with hyperglycem ia, with long-term current use of insulin ([facility]) blood sugar 2019- No Type 2 Use one [place] diagnostic 12-28 diabetes test strip Methodi strips 00:00: 00:00 mellitus two times s t (FREESTYLE 00 :00 with a day for LITE hyperglycem glucose STRIPS) ia, with strip test long-term strips current use of insulin ([facility]) lisinopril 2019- No Essential 40mg QD Take 1 [place] (PRINIVIL,Z 09-13 hypertensio tablet (40 Methodi ESTRIL) 40 00:00: 00:00 n mg total) s t mg tablet 00 :00 by mouth daily. hydroCHLORO 2019- No Essential 12.5mg QD Take 1 [place] thiazide 09-13 hypertensio tablet M ethodi (HYDRODIURI 00:00: 00:00 n (12.5 mg s t L) 12.5 MG 00 :00 total) by tablet mouth daily. miscellaneo 2017-06 Yes Essential Use to [facility] 08-01 hypertensio check M ethodi supply 00:00: n blood st (BLOOD 00 pressure PRESSURE twice CUFF) misc daily pentoxifyll 2017-06 2020- No PAD 1 tablet [place] ine 06-26 04-20 (peripheral 2x a day Met hodi (TRENTal) 00:00: 00:[address] [...] HIGH-DOSE PF 2018-03-01 Completed [place] 00:00:00 Jew FLUZONE HIGH-DOSE PF 2017-03-10 Completed [place] 00:00:00 Jew Vital Signs Vital Name Observation Time Observation Value Comments Source Heart rate 2019-10-03 16:21:00 66 /min [facility] Respiratory rate 2019-10-03 16:21:00 16 /min [facility] Oxygen saturation 2019-10-03 16:21:00 92 /min [facility] Arterial blood [facility] nter by Pulse oximetry Systolic blood 2019-10-03 14:42:00 155 mm[Hg] [facility] Diastolic blood 2019-10-03 14:42:00 68 mm[Hg] [facility] Body temperature 2019-10-03 14:42:00 36.83 Yoko [facility] Body weight 2019-10-03 11:15:00 41.9 kg [facility] BMI 2019-10-03 11:15:00 18.66 kg/m2 [facility] Body height 2019-09-27 09:00:00 149.9 cm per daughter [facility] Systolic blood 2019-09-12 11:44:54 171 mm[Hg] Ramón n pressure Jew Diastolic blood 2019-09-12 11:44:54 72 mm[Hg] [place] pressure Jew Heart rate 2019-09-12 11:44:54 76 /min Bai Jew Body temperature 2019-09-12 11:44:54 36.44 Yoko [place] Respiratory rate 2019-09-12 11:44:54 14 /min [place] Jew Oxygen saturation 2019-09-12 11:44:54 98 /min Hetal ston in Arterial blood Jew by Pulse oximetry Body height 2019-08-27 14:44:00 147.3 cm Bai Jew Body weight 2019-08-27 14:44:00 46.72 kg Bai Jew BMI 2019-08-27 14:44:00 21.53 kg/m2 Richardson Amin Procedures Procedure Date / Time Performing Clinician Source Performed TRANSFUSION SERVICE REPORT 2019-10-04 17:51:54 Provider, [facility] SCAN [facility] REPORT OF PROCEDURE - 2019-10-04 12:40:51 Provider, [facility] ENDOSCOPY [facility] RHYTHM STRIP - SCAN 2019-10-04 12:40:36 Provider, [facility] PREPARE LEUKO-REDUCED RBC 2019-10-03 23:54:00 [facility] TRANSFUSION SERVICE REPORT 2019-10-03 17:51:47 Provider, [facility] POCT-GLUCOSE METER 2019-10-03 16:47:00 [facility] POCT-GLUCOSE METER 2019-10-03 11:32:00 [facility] POCT-GLUCOSE METER 2019-10-03 10:56:00 [facility] POCT-GLUCOSE METER 2019-10-03 08:10:00 [facility] POCT-GLUCOSE METER 2019-10-03 07:39:00 [facility] BASIC METABOLIC PANEL (7) 2019-10-03 06:01:00 [facility] CBC W/PLT COUNT & AUTO 2019-10-03 06:01:00 [facility] TRANSFUSE LEUKO-REDUCED 2019-10-03 01:35:51 , [facility] RED BLOOD CELLS [facility] POCT-GLUCOSE METER 2019-10-02 21:13:00 [facility] TYPE AND SCREEN, AUTOMATED 2019-10-02 18:44:00 Giles [facility] POCT-GLUCOSE METER 2019-10-02 17:19:00 [facility], [facility] BASIC METABOLIC PANEL (7) 2019-10-02 17:12:00 [facility], [facility] CBC W/PLT COUNT & AUTO 2019-10-02 17:12:00 [facility] POCT-GLUCOSE METER 2019-10-02 11:02:00 Brigidat, [facility] POCT-GLUCOSE METER 2019-10-02 07:52:00 [facility] POCT-GLUCOSE METER 2019-10-01 21:26:00 [facility] POCT-GLUCOSE METER 2019-10-01 16:30:00 [facility] POCT-GLUCOSE METER 2019-10-01 12:09:00 [facility] POCT-GLUCOSE METER 2019-10-01 08:25:00 [facility] HEMODIALYSIS INPATIENT 2019-10-01 08:14:48 Romelia Palacio [facility] POCT-GLUCOSE METER 2019-10-01 07:05:00 [facility] POCT-GLUCOSE METER 2019-09-30 20:45:00 [facility] POCT-GLUCOSE METER 2019-09-30 15:37:00 [facility] 2019-09-30 11:50:00 [facility] POCT-[facility]UCOSE METER 2019-09-30 07:21:00 [facility] BASIC METABOLIC PANEL (7) 2019-09-30 04:10:00 [facility] CBC W/PLT COUNT & AUTO 2019-09-30 04:10:00 [facility] POCT-GLUCOSE METER 2019-09-29 20:06:00 [facility] HEMOGLOBIN AND HEMATOCRIT 2019-09-29 18:11:00 [facility] POCT-GLUCOSE METER 2019-09-29 16:43:00 [facility] POCT-GLUCOSE METER 2019-09-29 11:49:00 [facility] POCT-GLUCOSE METER 2019-09-29 07:59:00 [facility] POCT-GLUCOSE METER 2019-09-28 20:18:00 [facility] TRANSFUSION SERVICE REPORT 2019-09-28 17:52:05 Faizan Andrade [facility] POCT-GLUCOSE METER 2019-09-28 16:56:00 [facility] POCT-GLUCOSE METER 2019-09-28 11:22:00 [facility] HEMODIALYSIS INPATIENT 2019-09-28 10:18:05 Romelia Palacio ok [facility] HEMODIALYSIS INPATIENT 2019-09-28 08:20:40 Hakeem [facility] BASIC METABOLIC PANEL (7) 2019-09-28 04:10:[address] [facility] HEPATIC FUNCTION PANEL 2019-09-28 04:10:00 Ciara Abraham [facility] PROTHROMBIN TIME/INR 2019-09-28 04:10:00 Ciara Abraham [facility] CBC W/PLT COUNT & AUTO 2019-09-28 04:10:00 Ciara Abraham [facility] PREPARE LEUKO-REDUCED RBC 2019-09-27 23:54:[address] [facility] POCT-GLUCOSE METER 2019-09-27 21:43:00 [facility] ECHOCARDIOGRAM REPORT - 2019-09-27 21:10:38 Provider, [facility] TRANSFUSION SERVICE REPORT 2019-09-27 17:52:23 Provider, Default [facility] POCT-GLUCOSE METER 2019-09-27 17:28:00 [facility] REPORT OF PROCEDURE - 2019-09-27 14:41:18 Dai Levine [facility] ENDOSCOPY [facility] SIGMOIDOSCOPY 2019-09-27 13:32:00 Dai Levine [facility] POCT-GLUCOSE METER 2019-09-27 12:29:00 [facility] W/ DOPPLER 2019-09-27 09:11:[address] [facility] (CW/PW/COLOR) [facility] POCT-GLUCOSE METER 2019-09-27 08:02:00 [facility] BASIC METABOLIC PANEL (7) 2019-09-27 04:26:[address] [facility] HEPATIC FUNCTION PANEL 2019-09-27 04:26:00 Ciara Abraham [facility] PROTHROMBIN TIME/INR 2019-09-27 04:26:00 Ciara Abraham [facility] PHOSPHORUS 2019-09-27 04:26:00 Romelia Palacio [facility] CBC W/PLT COUNT & AUTO 2019-09-27 04:26:00 Ciara Abraham [facility] - DIFFERENTIAL [facility] POCT-GLUCOSE METER 2019-09-26 20:57:00 [facility] POCT-GLUCOSE METER 2019-09-26 16:58:00 Nam[facility] POCT-GLUCOSE METER 2019-09-26 11:38:00 [facility] MAGNESIUM 2019-09-26 08:52:00 Ciara Abraham [facility] HEPATITIS B SURFACE 2019-09-26 08:52:00 Richmond Mendoza [facility] - ANTIGEN [facility] CBC W/PLT COUNT & AUTO 2019-09-26 08:52:00 Richmond Mendoza [facility] - DIFFERENTIAL [facility] POCT-GLUCOSE METER 2019-09-26 07:44:00 Candice Huertas [facility] TRANSFUSE LEUKO-REDUCED 2019-09-26 06:25:26 Ciara Abraham [facility] - RED BLOOD CELLS [facility] XR HIP 2 VIEWS LEFT 2019-09-26 04:45:00 Ciara Abraham [facility] FERRITIN 2019-09-26 04:09:00 Ciara Abraham [facility] IRON, TIBC, % SAT. 2019-09-26 04:09:00 Ciara Abraham [facility] - [facility]WITHOUT FERRITIN) [facility] V[facility] B12 AND FOLATE 2019-09-26 04:09:00 Ciara Abraham [facility] BLOOD CULTURE 2019-09-26 02:07:00 Ciara Abraham [facility] BASIC METABOLIC PANEL (7) 2019-09-26 02:07:[address] [facility] HEPATIC FUNCTION PANEL 2019-09-26 02:07:00 Ciara Abraham [facility] PROTHROMBIN TIME/INR 2019-09-26 02:07:00 Abraham, [facility] ABORH, MANUAL 2019-09-26 02:07:00 El, Sol Jacinto [facility] CBC W/PLT COUNT & AUTO 2019-09-26 02:07:00 Jacinto [facility] HEMOGLOBIN A1C 2019-09-26 01:33:00 [facility] TYPE AND SCREEN, AUTOMATED 2019-09-26 01:33:00 Jacinto [facility] COMPREHENSIVE METABOLIC 2019-09-25 22:27:00 Jacinto [facility] PANEL [facility] PROTHROMBIN TIME/INR 2019-09-25 22:27:00 [facility] W/[facility]T COUNT & AUTO 2019-09-25 22:27:00 Abraham, [facility] DIFFERENTIAL [facility] POCT-GLUCOSE METER 2019-09-25 20:24:00 Candice Huertas [facility] XR LOWER EXTREMITY 2019-09-21 14:37:00 Oniel Panda ethodist EXTERNAL STUDY POC GLUCOSE 2019-09-12 12:02:00 Dorota Murillo POC GLUCOSE 2019-09-12 08:20:00 Dorota Murillo POC GLUCOSE 2019-09-11 21:36:00 Dorota Murillo POC GLUCOSE 2019-09-11 12:38:00 Dorota Murillo HEPATITIS B SURFACE 2019-09-11 10:57:00 Alfonso Saldaña ANTIGEN POC GLUCOSE 2019-09-11 08:36:00 Dorota Murillo HC COMPLETE BLD COUNT 2019-09-11 08:15:00 Dorota Murillo W/AUTO DIFF BASIC METABOLIC PANEL 2019-09-11 00:00:00 Dorota Murillo ESTIMATED GFR 2019-09-11 00:00:00 Dorota Murillo POC GLUCOSE 2019-09-10 22:15:00 Dorota Murillo HEMODIALYSIS 2019-09-10 18:29:44 Alfonso Saldaña Mo thodist POC GLUCOSE 2019-09-10 17:25:00 Dorota Murillo [...] BASIC METABOLIC PANEL 2019-09-08 04:00:00 Hernandez Calabrese Jew PHOSPHORUS LEVEL 2019-09-08 04:00:00 Hernandez Calabrese hodcleve MAGNESIUM LEVEL 2019-09-08 04:00:00 Hernandez Calabrese odist ESTIMATED GFR 2019-09-08 04:00:00 Alfonso Saldaña Mo thodist POC GLUCOSE 2019-09-07 22:15:00 Dorota Murillo POC GLUCOSE 2019-09-07 16:59:00 Dorota Murillo HEMODIALYSIS 2019-09-07 16:20:42 Hernandez Calabrese odist POC GLUCOSE 2019-09-07 09:36:00 Dorota Murillo OR FL > 1 HOUR 2019-09-07 09:16:51 Rahul Edgar odist [place] AN ELECTIVE 2019-09-07 08:41:10 Matias Douglas ethodist ENDOTRACHEAL AIRWAY PINNING, HIP, PERCUTANEOUS 2019-09-07 07:57:00 Oniel Panda Jew POC PANEL 4 2019-09-07 06:48:00 Dorota Murillo POC GLUCOSE 2019-09-07 05:21:00 Dorota Murillo HC COMPLETE BLD COUNT 2019-09-07 04:30:00 Dorota Murillo W/AUTO DIFF BASIC METABOLIC PANEL 2019-09-07 04:30:00 Dorota Murillo Jew FERRITIN LEVEL 2019-09-07 04:30:00 Hernandez Calabrese Meth odist TOTAL IRON BINDING 2019-09-07 04:30:00 CalabreseHernandez alfonso M ethodist CAPACITY PARTIAL THROMBOPLASTIN 2019-09-07 04:30:00 [facility] TIME (PTT) PROTHROMBIN TIME WITH INR 2019-09-07 04:30:00 [place] ESTIMATED GFR 2019-09-07 04:30:00 Alfonso Saldaña Mo thodist POC GLUCOSE 2019-09-06 21:48:00 Dorota Murillo POC GLUCOSE 2019-09-06 17:11:00 Dorota Murillo POC GLUCOSE 2019-09-06 12:32:00 Dorota Murillo POC GLUCOSE 2019-09-06 10:46:00 Dorota Murillo HEMODIALYSIS 2019-09-06 06:22:46 Shaun Latif Mo thodist HC COMPLETE BLD COUNT 2019-09-06 06:00:00 Dorota Murillo W/AUTO DIFF PARTIAL THROMBOPLASTIN 2019-09-06 06:00:00 [place] TIME (PTT) PROTHROMBIN TIME WITH INR 2019-09-06 06:00:00 [place] BASIC METABOLIC PANEL 2019-09-06 04:00:00 Dorota Murillo MAGNESIUM LEVEL 2019-09-06 04:00:00 Hernandez Calabrese Meth odist PHOSPHORUS LEVEL 2019-09-06 04:00:00 Hernandez Calabrese Met hodist ALBUMIN LEVEL 2019-09-06 04:00:00 Hernandez Calabrese Meth odist ESTIMATED GFR 2019-09-06 04:00:00 Dorota Murillo POC GLUCOSE 2019-09-05 23:55:00 Dorota Murillo ECG 12-LEAD 2019-09-05 18:15:09 Emily Ulloa odist POC GLUCOSE 2019-09-05 17:20:00 Dorota Murillo XR [...] BASIC METABOLIC PANEL 2019-08-21 02:00:00 Alexander Escudero CBC WITH PLATELET AND 2019-08-21 02:00:00 Alexander Escudero n Jew DIFFERENTIAL MAGNESIUM LEVEL 2019-08-21 02:00:00 Alexander Escudero Meth odist ESTIMATED GFR 2019-08-21 02:00:00 Alexander Escudero Meth odist PHOSPHORUS LEVEL 2019-08-21 02:00:00 Alexander Escudero Met hodist MANUAL DIFFERENTIAL 2019-08-21 02:00:00 Alexander Escudero Jew HEMODIALYSIS 2019-08-20 22:22:49 Hernandez Calabrese Meth odist POC GLUCOSE 2019-08-20 21:18:00 Dorota Murillo Jew POC GLUCOSE 2019-08-20 18:23:00 Dorota Murillo POC GLUCOSE 2019-08-20 17:13:00 Dorota Murillo POC GLUCOSE 2019-08-20 11:08:00 Dorota Murillo POC GLUCOSE 2019-08-20 07:58:00 Dorota Murillo BASIC METABOLIC PANEL 2019-08-20 05:05:00 Alexander Escudero Jew CBC WITH PLATELET AND 2019-08-20 05:05:00 Alexander Escudero n Jew DIFFERENTIAL MAGNESIUM LEVEL 2019-08-20 05:05:00 Alexander Escudero Meth odist ESTIMATED GFR 2019-08-20 05:05:00 Alexander Escudero Meth odist MANUAL DIFFERENTIAL 2019-08-20 05:05:00 Alexander Escudero Jew POC GLUCOSE 2019-08-19 21:15:00 Dorota Murillo Jew POC GLUCOSE 2019-08-19 17:14:00 Dorota Murillo Jew POC GLUCOSE 2019-08-19 11:55:00 Dorota Murillo ECG 12-LEAD 2019-08-19 09:26:38 Emily Ulloa odist POC GLUCOSE 2019-08-19 08:53:00 Dorota Murillo ESTIMATED GFR 2019-08-19 04:00:00 Alfonso Saldaña Mo thodist BASIC METABOLIC PANEL 2019-08-19 04:00:00 Alfonso Saldaña Jew POC GLUCOSE 2019-08-18 17:56:00 Dorota Murillo POC GLUCOSE 2019-08-18 13:01:00 Dorota Murillo HEMODIALYSIS 2019-08-18 08:45:54 Alfonso Saldaña Mo thodist POC GLUCOSE 2019-08-18 07:36:00 Dorota Murilloist POC GLUCOSE 2019-08-17 21:00:00 Dorota Murillo POC GLUCOSE 2019-08-17 18:13:00 Dorota Murilloist POC GLUCOSE 2019-08-17 12:44:00 Dorota Murillo CV STRESS TEST NUCLEAR 2019-08-17 08:37:36 Emily Ulloa CARDIO NM MYOCARDIAL PERFUSION 2019-08-17 08:37:36 Emily Ulloa STRESS REST 1 DAY POC GLUCOSE 2019-08-17 07:53:00 Dorota Murillo BASIC METABOLIC PANEL 2019-08-17 03:40:00 Alfonso Saldaña PHOSPHORUS LEVEL 2019-08-17 03:40:00 Alfonso Saldaña ethodist ESTIMATED GFR 2019-08-17 03:40:00 Alfonso Saldaña Mo thodist POC GLUCOSE 2019-08-16 21:56:00 Dorota Murillo POC GLUCOSE 2019-08-16 16:07:00 Dorota Murillo POC GLUCOSE 2019-08-16 11:38:[address] HEAD WO CONTRAST 2019-08-16 11:21:25 Emily Ulloa BASIC METABOLIC PANEL 2019-08-16 10:29:00 Alfonso Saldaña Jew ESTIMATED GFR 2019-08-16 10:29:00 Alfonso Saldaña Mo thodist POC GLUCOSE 2019-08-16 07:41:00 Dorota Murillo POC GLUCOSE 2019-08-15 18:03:00 Dorota Murillo POC GLUCOSE 2019-08-15 12:07:00 Dorota Murillo HEMODIALYSIS 2019-08-15 12:04:10 Gorge Shepard Meth odist POC GLUCOSE 2019-08-15 08:29:00 Dorota Murillo HC COMPLETE BLD COUNT 2019-08-15 08:15:00 Gorge Shepard W/AUTO DIFF BASIC METABOLIC PANEL 2019-08-15 08:15:00 Gorge Shepard MAGNESIUM LEVEL 2019-08-15 08:15:00 Gorge Shepard Meth odist PHOSPHORUS LEVEL 2019-08-15 08:15:00 Gorge Shepard hodcleve ESTIMATED GFR 2019-08-15 08:15:00 Dorota Murillo POC GLUCOSE 2019-08-14 21:45:00 Dorota Murillo POC GLUCOSE 2019-08-14 16:20:00 Dorota Muirllo POC GLUCOSE 2019-08-14 11:11:00 Dorota Murillo HEPATITIS [...] DIFF [place] BASIC METABOLIC PANEL 2019-08-14 04:00:00 NgKiara medina [place] ESTIMATED GFR 2019-08-14 04:00:00 Kiara Howard odist [place] POC GLUCOSE 2019-08-13 20:06:00 Dorota Murillo IR TUNNELED DIALYSIS 2019-08-13 18:37:51 Gorge Shepard CATHETER PLACEMENT HEPATITIS B SURFACE 2019-08-13 17:28:00 Gorge Shepard ANTIGEN POC GLUCOSE 2019-08-13 17:15:00 Dorota Murillo POC GLUCOSE 2019-08-13 11:54:00 Dorota Murillo HEMODIALYSIS 2019-08-13 11:03:59 DreaGorge bell Richardson Hillman odist POC GLUCOSE 2019-08-13 07:28:00 Dorota Murillo HC COMPLETE BLD COUNT 2019-08-13 04:50:00 Ngitit, Kiara Bauerist W/AUTO DIFF [place] IONIZED CALCIUM 2019-08-13 04:00:00 Ngitit, Kiara Bai Meth odist [place] BASIC METABOLIC PANEL 2019-08-13 04:00:00 Ngitit, Kiara ferreira Jew [place] ESTIMATED GFR 2019-08-13 04:00:00 Ngitit, Kiara Bai Meth odist [place] POC GLUCOSE 2019-08-12 20:33:00 Dorota Murillo POTASSIUM LEVEL 2019-08-12 19:00:00 Richardson Segovia odist Yuni Adrianna POC GLUCOSE 2019-08-12 18:25:00 Dorota Murillo POC GLUCOSE 2019-08-12 16:18:00 Dorota Murillo POC GLUCOSE 2019-08-12 11:43:00 Dorota Murillo XR CHEST 1 VW PORTABLE 2019-08-12 09:16:41 Ngitit, Kiara Croft on Jew [place] POC GLUCOSE 2019-08-12 06:59:00 Dorota Murillo CBC WITH PLATELET AND 2019-08-12 05:00:00 Ngitit, Kiara ferreira Jew DIFFERENTIAL [place] BASIC METABOLIC PANEL 2019-08-12 05:00:00 Ngitit, Kiara ferreira Jew [place] MAGNESIUM LEVEL 2019-08-12 05:00:00 Ngitit, Kiara Hillman odist [place] PHOSPHORUS LEVEL 2019-08-12 05:00:00 Ngitit, Kiara Bai Met hodist [place] IONIZED CALCIUM 2019-08-12 05:00:00 Ngitit, Kiara Bai Meth odist [place] B NATRIURETIC PEPTIDE 2019-08-12 05:00:00 Ngitit, Kiara ferreira Jew [place] ESTIMATED GFR 2019-08-12 05:00:00 Ngitit, Kiara Bai Meth odist [place] MANUAL DIFFERENTIAL 2019-08-12 05:00:00 Kiara Howard POC GLUCOSE 2019-08-11 20:34:00 Dorota Murillo POC GLUCOSE 2019-08-11 18:06:00 Dorota Murillo HEMOGLOBIN & HEMATOCRIT 2019-08-11 16:55:00 Tavia Segovia [place] Rodas TRANSFUSE RED BLOOD CELLS 2019-08-11 13:35:12 Dorota Murillo POC GLUCOSE 2019-08-11 12:24:00 Dorota Murillo TRANSFUSE RED BLOOD CELLS 2019-08-11 11:13:19 Dorota Murillo OCCULT BLOOD, STOOL 2019-08-11 08:17:00 Dorota Murillo POC GLUCOSE 2019-08-11 08:02:00 Dorota Murillo HEMOGLOBIN & HEMATOCRIT 2019-08-11 07:28:00 [facility] TYPE AND SCREEN 2019-08-11 06:24:00 Indigo Piper Mo thodist PREPARE RBC 2019-08-11 06:24:00 Dorota Murillo POC GLUCOSE 2019-08-11 06:04:00 Dorota Murillo POC GLUCOSE 2019-08-11 04:57:00 Dorota Muirllo HC COMPLETE BLD COUNT 2019-08-11 04:35:00 Indigo Piper W/AUTO DIFF SMEAR REVIEW 2019-08-11 04:35:00 Indigo Piper Mo thodist BASIC METABOLIC PANEL 2019-08-11 04:11:00 Indigo Piper ESTIMATED GFR 2019-08-11 04:11:00 Indigo Piper Me thodist POC GLUCOSE 2019-08-11 00:25:00 Dorota Murillo POC GLUCOSE 2019-08-10 20:52:00 Dorota Murillo POC [...] BODY FLUID CONSULT 2019-08-09 11:49:00 Dorota Murillo C4 COMPLEMENT COMPONENT 2019-08-09 11:45:00 Gorge Shepard DOUBLE-STRANDED DNA 2019-08-09 11:45:00 Gorge Shepard (DSDNA) ANTIBODIES, CRITHIDIA BARNETT ANTIBODY 2019-08-09 11:45:00 Gorge Shepard Meth odist TORITO 2019-08-09 11:45:00 Dorota Muirllo GLOMERULAR BASEMENT 2019-08-09 11:45:00 Dorota Murillo MEMBRANE AB IGG (IFA) TORITO TITER 2019-08-09 11:45:00 Dorota Murillo XR CHEST 1 VW PORTABLE 2019-08-09 09:58:30 NgKiara medina on Jew [place] POC GLUCOSE 2019-08-09 08:09:00 Dorota Murillo [...] KINASE, TOTAL 2019-08-09 04:00:00 Gorge Shepard on Jew (CPK) ESTIMATED GFR 2019-08-09 04:00:00 Dorota Murillo POC GLUCOSE 2019-08-09 02:22:00 Dorota Murillo LACTIC ACID LEVEL 2019-08-09 00:17:00 Gorge Shepard Me thodist KAPPA LAMBDA FREE LIGHT 2019-08-09 00:17:00 Gorge Shepard CHAIN WITH RATIO SERUM ELECTROPHORESIS 2019-08-09 00:17:00 Gorge Shepard US CAROTID DUPLEX 2019-08-08 21:20:00 Dorota Murillo BILATERAL POC GLUCOSE 2019-08-08 21:13:00 Dorota Murillo POC GLUCOSE 2019-08-08 18:26:00 Dorota Murillo URINE CULTURE 2019-08-08 16:57:00 Doorta Murillo US RENAL 2019-08-08 15:35:00 Gorge Shepard [...] VW PORTABLE 2019-08-07 21:08:29 Emily Ulloa on Jew ECG 12-LEAD 2019-08-07 20:50:43 Emily Ulloa B NATRIURETIC PEPTIDE 2019-08-07 20:45:00 Emily Ulloa n Jew TROPONIN 2019-08-07 20:45:00 Emily Ulloa COMPREHENSIVE METABOLIC 2019-08-07 20:45:00 Emily Ulloa Jew PANEL HC COMPLETE BLD COUNT 2019-08-07 20:45:00 Emily Ulloa Jew W/AUTO DIFF ESTIMATED GFR 2019-08-07 20:45:00 Emily Ulloa odist MI CRITICAL CARE, E/M 2019-08-07 20:33:40 Gabino Feliz Jew 30-74 MINUTES Andre HC COMPLETE BLD COUNT 2019-08-07 18:42:00 Ed eVrma Jew W/AUTO DIFF PROTHROMBIN TIME WITH INR 2019-08-07 18:42:00 VermaEd remy PARTIAL THROMBOPLASTIN 2019-08-07 18:42:00 Ed Verma Jew TIME (PTT) COMPREHENSIVE METABOLIC 2019-08-07 18:42:00 Ed Verma Jew PANEL AMYLASE LEVEL 2019-08-07 18:42:00 Ed Verma ethodist LIPASE LEVEL 2019-08-07 18:42:00 Ed Verma ethodist ESTIMATED GFR 2019-08-07 18:42:00 Ed Verma ethodist TTE COMPLETE, WO CONTRAST, 2019-08-07 00:45:00 Dorota Murillo DOPPLER ([id number]) Plan of Care Planned Activity Planned Date Details Comments Source Future Scheduled 2020-03-[address] [facility]00 [facility] (procedure) [code = 39008450] Future Scheduled 2020-02-19 INFLUENZA VACCINE (#1) [facility]00 [code = INFLUENZA Medical Ce nter VACCINE (#1)] Future Scheduled 2020-01-19 DIABETES: RETINAL EYE [place] [facility] 00:00:00 EXAM [code = DIABETES: RETINAL EYE EXAM] Future Scheduled 2020-01-19 [place] VACCINE [place] [facility] 00:00:00 [code = INFLUENZA VACCINE] Future Scheduled 2019-09-14 DIABETIC FOOT EXAM [place] [facility] Test 00:00:00 [code = DIABETIC FOOT EXAM] Future Scheduled 2019-09-14 URINE MICROALBUMIN [place] [facility] Test 00:00:00 [code = URINE MICROALBUMIN] Future Scheduled 2019-06-20 Medicare IPPE (WELCOME [facility] Test 00:00:00 TO MEDICARE) [code = Medical Center Medicare IPPE (WELCOME TO MEDICARE)] Future Scheduled 2019-05-31 65+ PNEUMOCOCCAL [place] [facility] Test 00:00:00 VACCINE (2 of 2 - PPSV23) [code = 65+ PNEUMOCOCCAL VACCINE (2 of 2 - PPSV23)] Future Scheduled 2007 PNEUMOCOCCAL 65+ YRS [facility] - Test 00:00:00 (2 of 2 - PPSV23) Medical Ce nter [code = PNEUMOCOCCAL 65+ YRS (2 of 2 - PPSV23)] Future Scheduled 1992-01-12 SHINGLES VACCINES (#1) [place] [facility] 00:00:00 [code = SHINGLES VACCINES (#1)] Future Scheduled 1952-01-12 DIABETIC EYE EXAM [facility] - Test 00:00:00 [code = DIABETIC EYE Medical Center EXAM] Future Scheduled 1952-01-[address] [facility]:00 examination Medical Center (regime/therapy) [code = 822090239] Future Scheduled 1952-01-12 Urine screening for [facility] - Test 00:00:00 protein (procedure) Medical Center [code = 140421596] Encounters Start End Encounter Admission Attending Care Care Encounter Source Date/Time Date/Time Type Type Clinicians Facility Department ID 2020-01-04 2020-01-04 Outpatient ESTRADA, [facility] [id number] [place] 00:00:00 00:00:00 SRINIVASAN [address] 2019-12-14 2019-12-14 Outpatient ESTRADA, [facility] [id number] [place] 00:00:00 00:00:00 SRINIVASAN [address] 2019-11-14 2019-11-14 Outpatient ESTRADA, [facility] [id number] [place] 00:00:00 00:00:00 SRINIVASAN [address] 2019-10-24 2019-10-24 Outpatient ESTRADA, [facility] [id number] [place] 00:00:00 00:00:00 SRINIVASAN [address] 2019-10-02 2019-10-02 Outpatient ONIEL PANDA [facility] [id number] [place] 00:00:00 00:00:[address] 2019-09-04 2019-09-12 Inpatient CHIDI, [facility] [id number] [place] 00:00:00 00:00:00 DOROTA [address] 2019-08-27 2019-08-27 Outpatient ESTRADA, [facility] [id number] [place] 00:00:00 00:00:00 SRINIVASAN [address] 2019-08-27 2019-08-27 Outpatient ESTRADA, [facility] [id number] [place] 00:00:00 00:00:00 SRINIVASAN [address] 2019-08-07 2019-08-21 Inpatient CHIDI, [facility] [id number] [place] 00:00:00 00:00:00 DOROTA [address] Results Test Description Test Time Test Comments Results Result Comments Source Prepare Leuko-Red RBC 2019-10-03 23:54:00 Test Item Value Reference Range Interpretation Comme nts CROSSMATCH (test code = 2264) COMPATIBLE Unit ABO (test code = 3361611) O Pos UNIT NUMBER (test code = 934-0) [id number] Status (test code = 1449168) TX_TIMEINCHART Blood Bank Product (test code = 2263) RED BLOOD CELLS PRODUCT CODE (test code = 933-2) [id number] [facility] [id number] 16:59:00 Test Item Value Reference Range Interpretation Comments POC-Glucose Meter (test 81 mg/dL 70-110 : TE STED AT [facility] code = 1538) [address] [facility], 770 30: [employer] Manager/Techni jamey ID = [id number] for CHIDIQUEEN Lab Interpretation (test Normal code = 33690-3) [facility] [id number] 16:59:00 Test Item Value Reference Range Interpretation Comments POC-GLUCOSE METER 81 mg/dL 70-110 : TESTED A T [facility] 6720 (BEAKER) (test code = TATIANA Figueroa [facility], 1538) 074[address]: [employer] Manager/Techni jamey ID = [id number] for IMELDA RENATOQUEEN JONES POCT-GLUCOSE [id number] 11:50:00 Test Item Value Reference Range Interpretation Comments POC-GLUCOSE METER 123 mg/dL 70-110 H : TESTED A T [facility] 6720 (BEAKER) (test code = [facility], 153) 24645: [employer] Manager/Techni jamey ID = [id number] for QUEEN BECKER POCT-GLUCOSE [id number] 11:07:00 Test Item Value Reference Range Interpretation Comments POC-GLUCOSE METER 127 mg/dL 70-110 H : TESTED A T [facility] 6720 (BEAKER) (test code = [facility], 153) 27983: [employer] Manager/Techni jamey ID = [id number] for Argenis renteria, Thomas POCT-GLUCOSE [id number] 08:22:00 Test Item Value Reference Range Interpretation Comments POC-GLUCOSE METER 78 mg/dL 70-110 : TESTED A T [facility] 6720 (BEAKER) (test code = [facility], 153) 22886: [employer] Manager/Techni jamey ID = [id number] for Imani kaufman, Thomas POCT-GLUCOSE [id number] 07:54:00 Test Item Value Reference Range Interpretation Comments POC-GLUCOSE METER 69 mg/dL 70-110 L : TESTED A T [facility] 6720 (BEAKER) (test code = [facility], 153) 65638: [employer] Manager/Techni jamey ID = [id number] for QUEEN KNOX Basic Metabolic [id number] 07:05:00 Test Item Value Reference Range Interpretation Comments Sodium (test code = 139 meq/L 493-283 9188-2) Potassium (test code = 3.6 meq/L 3.5-5.1 2823-3) Chloride (test code = 105 meq/L 98-107 2075-0) CO2 (test code = 25 meq/L 22-29 2028-9) BUN (test code = 18 mg/dL 7-21 3094-0) Creatinine (test code 3.59 mg/dL 0.57-1.25 H = 2160-0) Glucose (test code = 74 mg/dL 70-105 2345-7) Calcium (test code = 7.4 mg/dL 8.4-10.2 L 00225-3) EGFR (test code = 12 mL/min/1.73 [place] [address]-3) NOT ACCURATE CREATININE CLEARANCE IN PREDICTING GLOMERULAR FILTRATION RATE . ESTIMATED GFR I S NOT APPLICABLE FOR DIALYSIS PATIENTS. YAMIL (test code = YAMIL) [employer] ID - PIAYA L Lab Interpretation Abnormal (test code = 66717-7) [facility] [id number] 07:05:00 Test Item Value Reference Range Interpretation [...] S NOT APPLICABLE FOR DIALYSIS PATIEN TS. [employer] Manager ID - PIAYA LCBC with platelet count + automated [id number] 06:42:00 Test Item Value Reference Range Interpretation [...] 450 K/CU MM MPV (test code = 79068-9) 9.7 fL 9.4-12.3 nRBC (test code = [...] 2801) Lab Interpretation (test code = Abnormal 37348-1) [facility] W/PLT COUNT & AUTO [id number] 06:42:00 Test Item Value Reference Range Interpretation [...] PERCENT (BEAKER) (test code = 2801) POCT-GLUCOSE [id number] 21:29:00 Test Item Value Reference Range Interpretation Comments POC-GLUCOSE METER 95 mg/dL 70-110 : TESTED A T [facility] 6720 (BEAKER) (test code = TATIANA [place], 1538) [address]: [employer] Manager/Techni jamey ID = [id number] for ANGELA , SAUDATU Type and screen, [id number] 19:33:00 Test Item Value Reference Range Interpretation Comments ABO/RH AUTOMATED (BEAKER) (test O POSITIVE code = 2260) Ab Scrn (test code = 890-4) [facility]GATIVE [facility] [id number] 17:44:00 Test Item Value Reference Range Interpretation [...] S NOT APPLICABLE FOR DIALYSIS PATIEN TS. [employer] Manager ID - BSPOCT-GLUCOSE [id number] 17:42:00 Test Item Value Reference Range Interpretation Comments POC-GLUCOSE METER 96 mg/dL 70-110 : TESTED A T [facility] 6720 (BEAKER) (test code = JUAN MANUELELIOT Figueroa [facility], 1538) 30216: [employer] Manager/Techni jamey ID = [id number] for DERIK PEDRO CBC W/PLT COUNT & AUTO [id number] 17:37:00 Test Item Value Reference Range Interpretation [...] PERCENT (BEAKER) (test code = 2801) POCT-GLUCOSE [id number] 13:09:00 Test Item Value Reference Range Interpretation Comments POC-GLUCOSE METER 72 mg/dL 70-110 : TESTED A T [facility] 6720 (BEAKER) (test code = TATIANA Figueroa [facility], 1538) 12603: [employer] Manager/Techni jamey ID = [id number] for WILL IS, GORGE XR Lower Extremity External [id number] 10:39:47This exam was not acquired at a Jew facility and has not been interpreted by a Jew Provider. The exam was imported into our imaging system.Bai MethodistPOCT-GLUCOSE [id number] 08:42:00 Test Item Value Reference Range Interpretation Comments POC-GLUCOSE METER 87 mg/dL 70-110 : TESTED A T [facility] 6720 (BEAKER) (test code = TATIANA Figueroa [facility], 1538) 46541: [employer] Manager/Techni jamey ID = [id number] for WILL IS, GORGE POCT-GLUCOSE [id number] 21:42:00 Test Item Value Reference Range Interpretation Comments POC-GLUCOSE METER 94 mg/dL 70-110 : TESTED A T [facility] 6720 (BEAKER) (test code = [facility], 153) 845[address]: [employer] Manager/Techni jamey ID = [id number] for MERLE MILLER POCT-GLUCOSE [id number] 21:33:00 Test Item Value Reference Range Interpretation Comments POC-GLUCOSE METER 84 mg/dL 70-110 : TESTED A T [facility] 6720 (BEAKER) (test code = [facility], 1538) 13109: [employer] Manager/Techni jamey ID = [id number] for ALEKS S, ABI POCT-GLUCOSE [id number] 12:49:00 Test Item Value Reference Range Interpretation Comments POC-GLUCOSE METER 139 mg/dL 70-110 H : TESTED A T [facility] 6720 (BEAKER) (test code = [facility], 1538) 85419: [employer] Manager/Techni jamey ID = [id number] for REKHA ASHLEY, ABI POCT-GLUCOSE [id number] 10:22:00 Test Item Value Reference Range Interpretation Comments POC-GLUCOSE METER 96 mg/dL 70-110 : TESTED A T [facility] 6720 (BEAKER) (test code = [facility], 153) 32329: [employer] Manager/Techni jamey ID = [id number] for Dyllan chip Dayna POCT-GLUCOSE [id number] 08:42:00 Test Item Value Reference Range Interpretation Comments POC-GLUCOSE METER 94 mg/dL 70-110 : TESTED A T [facility] 6720 (BEAKER) (test code = [facility], 153) 85857: [employer] Manager/Techni jamey ID = [id number] for ALEKS S, ABI Blood Culture - Routine (Right Venipuncture)2019-10-01 05:00:00 Test Item Value Reference Range Interpretation Comments Result (test code = No growth in 5 days 6463-4) [facility] [id number] 05:00:00 Test Item Value Reference Range Interpretation Comments CULTURE (BEAKER) (test No growth in 5 days code = 1095) POCT-GLUCOSE [id number] 21:02:00 Test Item Value Reference Range Interpretation Comments POC-GLUCOSE METER 117 mg/dL 70-110 H : TESTED A T [facility] 6720 (BEAKER) (test code = [facility], 153) 68505: [employer] Manager/Techni jamey ID = [id number] for BLAIRE GARRETT POCT-GLUCOSE [id number] 16:26:00 Test Item Value Reference Range Interpretation Comments POC-GLUCOSE METER 121 mg/dL 70-110 H : TESTED A T [facility] 6720 (BEAKER) (test code = [facility], 1538) [id number]: [employer]/Techni jamey ID = [id number] for DERIK ALEXANDRA POCT-GLUCOSE [id number] 12:02:00 Test Item Value Reference Range Interpretation Comments POC-GLUCOSE METER 183 mg/dL 70-110 H : TESTED A T [facility] 6720 (BEAKER) (test code = [facility], 153) [address]26: [employer] Manager/Techni jamey ID = [id number] for DERIK ALEXANDRA POCT-GLUCOSE [id number] 07:57:00 Test Item Value Reference Range Interpretation Comments POC-GLUCOSE METER 113 mg/dL 70-110 H : TESTED A T [facility] 6720 (BEAKER) (test code = [facility], 153) [id number]: [employer] Manager/Techni jamey ID = [id number] for DERIK ALEXANDRA BASIC METABOLIC [id number] 05:44:00 Test Item Value Reference Range Interpretation [...] S NOT APPLICABLE FOR DIALYSIS PATIEN TS. [employer] Manager ID - [id number] LCBC W/PLT COUNT & AUTO [id number] 05:08:00 Test Item Value Reference Range Interpretation [...] PERCENT (BEAKER) (test code = 2801) POCT-GLUCOSE [id number] 20:17:00 Test Item Value Reference Range Interpretation Comments POC-GLUCOSE METER 164 mg/dL 70-110 H : TESTED A T [facility] 6720 (BEAKER) (test code = [facility], 1538) [id number]: [employer] Manager/Techni jamey ID = [id number] for ALYSIA RENDON Hemoglobin and [id number] 18:31:00 Test Item Value Reference Range Interpretation Comments Hemoglobin (test code = 8.5 11.2- 15.7 GM/DL L 786-4) Hematocrit (test code = 26.9 % 34.1-44.9 L 4544-3) YAMIL (test code = YAMIL) [employer] ID - [id number] Lab Interpretation (test Abnormal code = 39599-5) [facility] [id number] 18:31:00 Test Item Value Reference Range Interpretation Comments HEMOGLOBIN (BEAKER) (test code = 8.5 GM/DL 11.2-15.7 L 410) HEMATOCRIT (BEAKER) (test code = 26.9 % 34.1-44.9 L 411) [employer] Manager ID - [id number]-GLUCOSE [id number] 16:55:00 Test Item Value Reference Range Interpretation Comments POC-GLUCOSE METER 175 mg/dL 70-110 H : TESTED A T [facility] 6720 (BEAKER) (test code = [facility], 1538) [address]99: [employer] Manager/Techni jamey ID = [id number] for REKHA ABI RAMIREZ POCT-GLUCOSE [id number] 12:00:00 Test Item Value Reference Range Interpretation Comments POC-GLUCOSE METER 188 mg/dL 70-110 H : TESTED A T [facility] 6720 (BEAKER) (test code = [facility], 1538) [address]37: [employer] Manager/Techni jamey ID = [id number] for REKHA ASHLEY, ABI POCT-GLUCOSE [id number] 08:10:00 Test Item Value Reference Range Interpretation Comments POC-GLUCOSE METER 98 mg/dL 70-110 : TESTED A T [facility] 6720 (BEAKER) (test code = [facility], 1538) 15135: [employer] Manager/Techni jamey ID = [id number] for ALEKS S, ABI POCT-GLUCOSE [id number] 20:30:00 Test Item Value Reference Range Interpretation Comments POC-GLUCOSE METER 136 mg/dL 70-110 H : TESTED A T [facility] 6720 (BEAKER) (test code = [facility], 1538) 90291: [employer] Manager/Techni jamey ID = [id number] for DAINA GARDNER, ALYSIA POCT-GLUCOSE [id number] 17:08:00 Test Item Value Reference Range Interpretation Comments POC-GLUCOSE METER 157 mg/dL 70-110 H : TESTED A T [facility] 6720 (BEAKER) (test code = [facility], 1538) 41650: [employer] Manager/Techni jamey ID = [id number] for BU RKS, ANIL POCT-GLUCOSE [id number] 11:35:00 Test Item Value Reference Range Interpretation Comments POC-GLUCOSE METER 97 mg/dL 70-110 : TESTED A T [facility] 6720 (BEAKER) (test code = [facility], 1538) 16673: [employer] Manager/Techni jamey ID = [id number] for HAROLDO S, ANIL Hepatic function [id number] 05:17:00 Test Item Value Reference Range Interpretation Comments Protein, Total (test code 5.5 6.0- 8.3 gm/dL L = 2885-2) Albumin (test code = 2.5 g/dL 3.5-5 L 97206-2) Total Bilirubin (test code 0.5 mg/dL 0.2-1.2 = 1974-2) Bilirubin, Direct (test 0.4 mg/dL 0.1-0.5 code = 1967-7) Alkaline Phosphatase (test 71 U/L 40-150 code = 6768-6) AST (test code = 1920-8) 20 U/L 5-34 ALT (test code = 1742-6) <6 6-55 L YAMIL (test code = YAMIL) [employer] Manager ID Cristina ROBERTSON W Lab Interpretation (test Abnormal code = 29735-0) [facility] [id number] 05:17:00 Test Item Value Reference Range Interpretation [...] code = < U/L 6-55 L 347) [employer] Manager ID Cristina ROBERTSON WBASIC METABOLIC [id number] 05:13:00 Test Item Value Reference Range Interpretation [...] S NOT APPLICABLE FOR DIALYSIS PATIEN TS. [employer] Manager ID Cristina ROBERTSON WProthrombin time/[id number] 04:50:00 Test Item Value Reference Range Interpretation [...] valves. Lab Interpretation Abnormal (test code = 38615-6) [facility] HospitalPROTHROMBIN [facility]/[id number] 04:50:00 Test Item Value Reference Range Interpretation [...] mechanical heart valves.CBC W/PLT COUNT & AUTO [id number] 04:32:00 Test Item Value Reference Range Interpretation [...] PERCENT (BEAKER) (test code = 2801) POCT-GLUCOSE [id number] 21:55:00 Test Item Value Reference Range Interpretation Comments POC-GLUCOSE METER 76 mg/dL 70-110 : TESTED A T [facility] 6720 (BEAKER) (test code = [facility], 1538) 12884: [employer] Manager/Techni jamey ID = [id number] for SIMON GERONIMO ANA POCT-GLUCOSE [id number] 17:42:00 Test Item Value Reference Range Interpretation Comments POC-GLUCOSE METER 91 mg/dL 70-110 : TESTED A T [facility] 6720 (BEAKER) (test code = TATIANA Figueroa [facility], 1538) 32754: [employer] Manager/Techni jamey ID = [id number] for DERIK PEDRO POCT-GLUCOSE [id number] 12:44:00 Test Item Value Reference Range Interpretation Comments POC-GLUCOSE METER 81 mg/dL 70-110 : TESTED A T [facility] 6720 (MIGDALIA) (test code = TATIANA Figueroa [facility], 1538) 88665: [employer] Manager/Techni jamey ID = [id number] for DERIK PEDRO 2D Echo W/Doppler(CW/PW/Color)2019-09-27 11:02:24Ejection FractionSLEH ECHO HEARTLAB MKCKESSON CPACSInterface, External Ris In - 09/27/2019 11:02 AM C DTTransthoracic Echocardiography Report (TTE) Demographics Patient Name SEAN MOULTON Date ofStudy 09/27/2019 HARMEET Gender Female Visit Number [id number] Race Room Number 922 Number Date of 1940 Referring Ciara Barry Physician MD Jacinto Age 79 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..] S NOT APPLICABLE FOR DIALYSIS PATIEN TS. [employer] Manager VIELKA MUHAMMAD LHEPATIC FUNCTION [id number] 05:48:00 Test Item Value Reference Range Interpretation [...] code = < U/L 6-55 L 347) [employer] Manager VIELKA MUHAMMAD [id number] 05:47:00 Test Item Value Reference Range Interpretation Comments Phosphorus (test code = 2.6 mg/dL 2.3-4.7 2777-1) YAMIL (test code = YAMIL) [employer] Manager VIELKA MUHAMMAD L Lab Interpretation (test Normal code = 42643-1) [facility]PHOSPHORUS2020-04-09 05:47:00 Test Item Value Reference Range Interpretation Comments PHOSPHORUS (BEAKER) (test code = 2.6 mg/dL 2.3-4.7 604) [employer] Manager VIELKA MUHAMMAD LPROTHROMBIN TIME/[id number] 05:20:00 Test Item Value Reference Range Interpretation [...] mechanical heart valves.CBC W/PLT COUNT & AUTO [id number] 05:11:00 Test Item Value Reference Range Interpretation [...] PERCENT (BEAKER) (test code = 2801) POCT-GLUCOSE [id number] 21:09:00 Test Item Value Reference Range Interpretation Comments POC-GLUCOSE METER 125 mg/dL 70-110 H : TESTED A T [facility] 6720 (BEAKER) (test code = [facility], 1538) 54846: [employer] Manager/Techni jamey ID = [id number] for NEGAR KHALIL POCT-GLUCOSE [id number] 17:10:00 Test Item Value Reference Range Interpretation Comments POC-GLUCOSE METER 93 mg/dL 70-110 : TESTED A T [facility] 6720 (BEAKER) (test code = [facility], 1538) 89021: [employer] Manager/Techni jamey ID = [id number] for DERIK PEDRO Hemoglobin [id number] 12:38:00 Test Item Value Reference Range Interpretation Comments Hemoglobin A1C (test code = 4548-4) 5.6 % 4.3-6.1 Lab Interpretation (test code = Normal 76769-2) [facility] HospitalHEMOGLOBIN [id number] 12:38:00 Test Item Value Reference Range Interpretation Comments HEMOGLOBIN A1C (BEAKER) (test code = 5.6 % 4.3-6.1 368) POCT-GLUCOSE [id number] 11:50:00 Test Item Value Reference Range Interpretation Comments POC-GLUCOSE METER 97 mg/dL 70-110 : TESTED A T [facility] 6720 (BEAKER) (test code = [facility] [place], 1538) 82391: [employer] Manager/Techni jamey ID = [id number] for Thomas Light Hepatitis B surface [id number] 10:03:00 Test Item Value Reference Range Interpretation Comments HBsAg Screen (test code = Nonreactive Nonreactive 5195-3) YAMIL (test code = YAMIL) [employer] Manager ID - HANNAH C Lab Interpretation (test Normal code = 83799-2) [facility] HospitalHEPATITIS B SURFACE [id number] 10:03:00 Test Item Value Reference Range Interpretation Comments HEPATITIS B SURFACE ANTIGEN (2) Nonreactive Nonreactive (BEAKER) (test code = 2585) [employer] Manager ID - JUN CCBC W/PLT COUNT & AUTO [id number] 09:36:00 Test Item Value Reference Range Interpretation [...] 0-1 PERCENT (BEAKER) (test code = 2801) [id number] 09:33:00 Test Item Value Reference Range Interpretation Comments Magnesium (test code = 2.0 mg/dL 1.6-2.6 73774-7) YAMIL (test code = YAMIL) [employer] Manager ID - HANNAH C Lab Interpretation (test Normal code = 15076-3) [facility] HospitalMAGNESIUM2020-04-08 09:33:00 Test Item Value Reference Range Interpretation Comments MAGNESIUM (BEAKER) (test code = 2.0 mg/dL 1.6-2.6 627) [employer] Manager ID - HANNAH CPOCT-GLUCOSE [id number] 07:55:00 Test Item Value Reference Range Interpretation Comments POC-GLUCOSE METER 65 mg/dL 70-110 L : TESTED A T [facility] 6720 (BEAKER) (test code = TATIANA Figueroa [facility], 1538) 15444: [employer] Manager/Techni jamey ID = [id number] for DERIK PEDRO [id number] 05:36:00 Test Item Value Reference Range Interpretation Comments Ferritin (test code = 1973.82 ng/mL 5-275 H 2276-4) YAMIL (test code = YAMIL) [employer] Manager ID Cristina WILKINSON M Lab Interpretation (test Abnormal code = 90132-4) [facility] HospitalFERRITIN2020-04-08 05:36:00 Test Item Value Reference Range Interpretation Comments FERRITIN (BEAKER) (test code = 1973.82 ng/mL 5.00-275.00 H 361) [employer] Manager ID - MINH MVitamin B12 and [id number] 05:32:00 Test Item Value Reference Range Interpretation Comments Vitamin B12 (test code = 1334 pg/mL 213-816 H 2132-9) Folate (test code = 6.40 ng/mL >=7.00 L 2284-8) YAMIL (test code = YAMIL) [employer] Manager ID - MINH M Lab Interpretation (test Abnormal code = 93446-9) [facility] HospitalVITAMIN B12 AND [id number] 05:32:00 Test Item Value Reference Range Interpretation Comments VITAMIN B12 (BEAKER) (test code = 1334 pg/mL 213-816 H 774) FOLATE (BEAKER) (test code = 362) 6.40 ng/mL >=7.00 L [employer] Manager ID - MINH MRAD, HIP, 2 VIEWS, [id number] 05:18:00Reason for exam:->fractureFINAL REPORT CLINICAL HISTORY: "Fracture" COMPARISON: None. FINDINGS: 2 views of the left hip are submitted. There is no acute fracture or malalignment. There are fixation screws in the femoral neck which appear properly positioned. Surgical joselin overlie the left lateral hip. Signed: Bri Landers Verified Date/Time: 09/26/2019 05:18:36 Electronically signedby: BRI LANDERS M.D. on 09/26/2019 05:18 AMXR hip 2 views [id number] 05:18:00Interface, External Ris In - 09/26/2019 5:20 AM CDTFINAL REPORT CLINICAL HISTORY: "Fracture" COMPARISON: None. FINDINGS: 2 views of the left hip are submitted. There is no acute fracture or malalignment. There are fixation screws in the femoral neck which appear properly positioned. Surgical joselin overlie the left lateral hip. Signed: Bri Landers MDReport Verified Date/Time: 09/26/2019 05:18:36 [facility]BC, % sat. (without ferritin)2019-09-26 05:09:00 Test Item Value Reference Range Interpretation Comments Iron (test code = 2498-4) 16.0 ug/dL 40-160 L TIBC (test code = 2500-7) 119 ug/dL 250-450 L Iron % Saturation (test 13 % 20-55 L code = 2502-3) YAMIL (test code = YAMIL) [employer] Manager ID - MINH M Lab Interpretation (test Abnormal code = 01508-9) [facility] HospitalIRON, TIBC, % SAT. (WITHOUT FERRITIN)2019-09-26 05:09:00 Test Item Value Reference Range Interpretation Comments IRON (BEAKER) (test code = 547) 16.0 ug/dL 40.0-160.0 L TOTAL IRON BINDING CAPACITY 119 ug/dL 250-450 L (BEAKER) (test code = 769) IRON % SATURATION (2) (BEAKER) 13 % 20-55 L (test code = 2590) [employer] Manager ID - MINH MBASIC METABOLIC [id number] 02:38:00 Test Item Value Reference Range Interpretation [...] S NOT APPLICABLE FOR DIALYSIS PATIEN TS. [employer] Manager ID - MINH MPROTHROMBIN TIME/[id number] 02:36:00 Test Item Value Reference Range Interpretation [...] for patients wiht mechanical heart valves.HEPATIC FUNCTION [id number] 02:32:00 Test Item Value Reference Range Interpretation [...] (test code = 6 U/L 6-55 347) [employer] Manager ID - MINH HUFFMAN, [id number] 02:31:00 Test Item Value Reference Range Interpretation Comments ABO Grouping (test code = 2588) O Rh Factor (test code = 2589) POS [facility] W/PLT COUNT & AUTO [id number] 02:20:00 Test Item Value Reference Range Interpretation [...] (BEAKER) (test code = 2801) Comprehensive metabolic [id number] 23:10:00 Test Item Value Reference Range Interpretation Comments Protein, Total (test 6.0 6.0- 8.3 gm/dL code = 2885-2) Albumin (test code = 2.8 g/dL 3.5-5 L 72579-5) Alkaline Phosphatase 88 U/L 40-150 (test code = 6768-6) Total Bilirubin (test 0.5 mg/dL 0.2-1.2 code = 1974-2) Sodium (test code = 134 meq/L 136-145 L 2951-2) Potassium (test code = 3.1 meq/L 3.5-5.1 L 2823-3) Chloride (test code = 101 meq/L 98-107 2075-0) CO2 (test code = 19 meq/L 22-29 L 2028-9) BUN (test code = 45 mg/dL 7-21 H 3094-0) Creatinine (test code 5.17 mg/dL 0.57-1.25 H = 2160-0) Glucose (test code = 77 mg/dL 70-105 2345-7) Calcium (test code = 7.6 mg/dL 8.4-10.2 L 64858-3) AST (test code = 20 U/L 5-34 1920-8) ALT (test code = <6 6-55 L 1742-6) EGFR (test code = 8 mL/min/1.73 [place] [address]-2) NOT ACCURATE CREATININE CLEARANCE IN PREDICTING GLOMERULAR FILTRATION RATE . ESTIMATED GFR I S NOT APPLICABLE FOR DIALYSIS PATIENTS. YAMIL (test code = YAMIL) [employer] Manager ID - BS Lab Interpretation Abnormal (test code = 12462-7) [facility] HospitalCOMPREHENSIVE METABOLIC [id number] 23:10:00 Test Item Value Reference Range Interpretation [...] S NOT APPLICABLE FOR DIALYSIS PATIEN TS. [employer] Manager ID - BSPROTHROMBIN TIME/[id number] 23:07:00 Test Item Value Reference Range Interpretation [...] mechanical heart valves.CBC W/PLT COUNT & AUTO [id number] 22:49:00 Test Item Value Reference Range Interpretation [...] PERCENT (BEAKER) (test code = 2801) POCT-GLUCOSE [id number] 20:35:00 Test Item Value Reference Range Interpretation Comments POC-GLUCOSE METER 102 mg/dL 70-110 : TESTED A T [facility] 6720 (BEAKER) (test code = [facility] [place], 1538) 48946: [employer] Manager/Techni jamey ID = [id number] for ALYSIA RENDON POC [id number] 12:04:07 Test Item Value Reference Range Interpretation Comments POC glucose (test code = 104 mg/dL 65-99 H Ope rator Name: [id number]) [facility] AishaDe vice ID: [id number] able: [facility] Notified superintendent renting managing Interpretation (test Abnormal code = 90760-1) [facility] MethodistHepatitis B surface xyrhkin5719-04-37 14:50:34 Test Item Value Reference Range Interpretation Comments Hepatitis B surface Ag (test Non-reactive Non-reactive code = 5195-3) [facility] MethodistBasic metabolic [id number] 09:08:24 Test Item Value Reference Range Interpretation Comments Sodium (test code = 2951-2) 133 135- 148 mEq/L L Potassium (test code = 2823-3) 3.7 3.5- 5.0 mEq/L Chloride (test code = 2075-0) 95 98- 112 mEq/L L CO2 (test code = 8-9) 23 24- 31 mEq/L L Anion gap (test code = 55091-3) 15@ANIO 7- 15 mEq/L BUN (test code = 3094-0) 35 mg/dL 8-23 H Creatinine (test code = 2160-0) 4.76 mg/dL 0.5-0.9 H Glucose (test code = 2345-7) 80 mg/dL 65-99 Calcium (test code = 61519-0) 8.4 mg/dL 8.8-10.2 L Lab Interpretation (test code = Abnormal 58992-3) [facility] MethodistEstimated [id number] 09:08:23 Test Item Value Reference Range Interpretation Comments Estimated GFR (test 8 mL/min/1.73 m2 A Caterg ory Units code = 5488) InterpretationG 1 >=90 Melvina l or highG2 60-89 Mildly decrease dG3a 45-59 Mil dly to moderately decr kpniiY4h 30-44 Moderately to s everely decreasedG4 15-29 Severe ly decreasedG5 <15 Kidney nicola lureThe eGFR was calcul ated using the Chron ic Kidney Disease Epidemiology Collaboration ( CKD-EPI) equation. Interpretation is based on recommendati ons of the [facility]-Kidn ey Disease Outcome s Quality Initiat siddharth (NKF-KDOQI) pub lished in 2013. Lab Interpretation Abnormal (test code = 52959-4) [facility] MethodistCBC with platelet and jwsehkpzttgp5947-24-22 08:27:24 Test Item Value Reference Range Interpretation Comments WBC (test code = 96836-6) 5.56 4.50- 11.00 k/uL RBC (test code = 33256-8) 3.30 m/uL 4.2-5.5 L HGB (test code = 718-7) 8.8 g/dL 12-16 L HCT (test code = 4544-3) 28.2 % 37-47 L MCV (test code = 787-2) 85.5 fL 82-100 MCH (test code = 785-6) 26.7 pg 27-34 L MCHC (test code = 786-4) 31.2 g/dL 31-37 RDW - SD (test code = 46.1 fL 37-55 44147-7) MPV (test code = 14616-7) 9.7 fL 8.8-13.2 Platelet count (test code 340 150- 400 k/uL = 98648-5) Nucleated RBC (test code 0.00 /100 WBC = 51688-6) Neutrophils (test code = 62.7 % 39-69 99723-8) Lymphocytes (test code = 26.6 % 25-45 00333-5) Monocytes (test code = 6.8 % 0-10 70888-7) Eosinophils (test code = 2.5 % 0-5 56808-1) Basophils (test code = 0.9 % 0-1 61154-1) Immature granulocytes 0.5 % 0-1 "Immat ure (test code = 76525-2) granul ocytes" (promyelocytes, myelocytes, metamyelocytes) Lab Interpretation (test Abnormal code = 64707-7) [facility] wvrglarr0906-06-90 09:37:00 Test Item Value Reference Range Interpretation Comments WBC (test code = 15591-9) 8.65 4.50- 11.00 k/uL RBC (test code = 61554-7) 3.17 m/uL 4.2-5.5 L HGB (test code = 718-7) 8.3 g/dL 12-16 L HCT (test code = 4544-3) 27.5 % 37-47 L MCV (test code = 787-2) 86.8 fL 82-100 MCH (test code = 785-6) 26.2 pg 27-34 L MCHC (test code = 786-4) 30.2 g/dL 31-37 L RDW - SD (test code = 11759-8) 46.7 fL 37-55 MPV (test code = 15530-2) 10.2 fL 8.8-13.2 Platelet count (test code = 298 150- 400 k/uL 64442-9) Nucleated RBC (test code = 0.00 /100 WBC 79047-3) Lab Interpretation (test code = Abnormal 28422-9) [facility] MethodistMagnesium [id number] 09:32:53 Test Item Value Reference Range Interpretation Comments Magnesium (test code = 09787-0) 2.0 mg/dL 1.6-2.4 [facility] MethodistPhosphorus [id number] 09:32:53 Test Item Value Reference Range Interpretation Comments Phosphorus (test code = 2777-1) 5.5 mg/dL 2.4-4.5 H Lab Interpretation (test code = Abnormal 46714-3) [facility] MethodistOR [place] > I [id number] 20:48:48Hm Interface, Radiology Results - 09/07/2019 8:51 PM CDTEXAMINATION: OR [place] > 1 HOURC-arm fluoroscopy was requested in OR. Location: [facility]19 - OR12 Procedure: LEFT HIP PINNING Start Time: 729 End Time: 15 Fluoro Time: 1MIN 27SECDose (mGy): 6.98mGyTech(s): jmIMPRESSION:Separate operative report will be issued by the physician performing the procedure.1M2RAD_DT08[place] HtyzksuweUryzdt5516-25-76 08:41:10SoMatias silva Jr., CRNA 09/07/2019 8:42 AMAirwayDate/Time: 09/07/2019 8:05 AMPerformed by: Maitas Douglas Jr., CRNAAuthorized by: Jm Magana MD Location: ORUrgency: ElectiveDifficult Airway: No Anesthesiologist: Jm Magana MDResident/CONVEYOR SYSTEM DISPATCHER/AA: Matias Douglas Jr. CRNAPerformed by: resident/CONVEYOR SYSTEM DISPATCHER/AAPreoxygenated with 100% O2: Yes C-spine Precautions Maintained [...] RSI: No Number of Attempts at Approach: [address] [place] [address] MethodistPO panel 07:21:50 Test Item Value Reference Range Interpretation Comments POC sodium (test code = 131 mmol/L 135-148 L 2947-0) POC potassium (test 4.0 mmol/L 3.5-5 code = 6298-4) POC hematocrit (test 30 % 37-47 L code = 4544-3) POC glucose (test code 132 mg/dL 65-99 H Opera tor Name: Lamont = 2339-0) Dwain ID: [id number] Lab Interpretation Abnormal (test code = 73368-2) [facility] MethodistFerritin buaet5408-98-65 07:16:11 Test Item Value Reference Range Interpretation Comments Ferritin level (test code = 2276-4) 928 ng/mL 13-150 H Lab Interpretation (test code = Abnormal 35570-4) [facility] MethodistPartial thromboplastin time, dbrqgeckh2556-90-99 07:13:51 Test Item Value Reference Range Interpretation Comments PTT (test code = 36.4 23.0- 36.0 sec H PTT thera peutic range 02708-3) for unfractiona ida heparin is61.0- 112.0 seconds which corresponds to Anti-Xa0.3-0.7 U/ml. Lab Interpretation Abnormal (test code = 55105-2) [facility] MethodistProthrombin time with [id number] 07:13:35 Test Item Value Reference Range Interpretation Comments Prothrombin time (test 14.6 11.5- 14.5 sec H code = 5902-2) INR (test code = 1.1 The Interna ticounts include 234 beds at the [facility] 31223-0) Normalized Rati o (INR) is a therapeuti c monitoring tool for patients who ar e stable on oral anticoagulant t herapy. An INR of 2.0-3 .0 is suggested for d eep vein thrombosis/pulm onary embolism. Lab Interpretation Abnormal (test code = 77027-8) [facility] MethodistTotal iron binding yzrvuvie3085-66-59 07:11:51 Test Item Value Reference Range Interpretation Comments Iron level (test code = 2498-4) 31 ug/dL 37-145 L Iron binding capacity (test code = 166 ug/dL 200-400 L 2500-7) % Saturation (test code = 2502-3) 18.7 % 15-38 Lab Interpretation (test code = Abnormal 41470-1) [facility] MethodistECG 12 vigd2529-01-63 13:38:49 Test Item Value Reference Range Interpretation Comments Ventricular rate (test 77 code = 253) Atrial rate (test code 77 = 255) MI interval (test code 130 = 266) QRSD [...] for LVH, may be normal variant ( [place] product )-ST & T wave abnormality, consider lateral ischemia-Abnormal ECG-In automated comparison with ECG of 19-AUG-2019 09:26,-No significant change was found- [facility] MethodistAlbumin [id number] 07:02:27 Test Item Value Reference Range Interpretation Comments Albumin (test code = 1751-7) 2.5 g/dL 3.5-5 L Lab Interpretation (test code = Abnormal 08256-3) [facility] MethodistXR Hip 2-3 View [id number] 14:16:47Hm Interface, Radiology Results Incoming - 09/05/2019 [...] acute fracture or dislocation.3. Vascular consultations are present.H-4VH7759QSIXgbqktg MethodistXR Pelvis 1 Or 2 [id number] 14:15:32Hm Interface, Radiology Results 09/05/2019 2:18 PM CDTPROCEDURE: XR PELVIS 1 [...] seen within the left and right hip joints.STJO-8VT3815HSM.[place] MethodistXR Femur 2 Vw Zsbw2554-82-69 14:15:31Hm Interface, Radiology Results 09/05/2019 2:18 PM CDTEXAMINATION: XR FEMUR 2 VW LEFTCLINICAL HISTORY: Fracture femurCOMPARISON: None.FINDINGS:There is a subcapital femoral neck fracture, with slight impaction and valgus angulation noted.Moderate vascular calcifications are present.IMPRESSION:Left-sided Subcapital femoral neck fracture.OPC-4LC3448YKPOyebrul MethodistType and wgibqc1561-88-15 07:41:00 Test Item Value Reference Range Interpretation Comments ABO grouping (test code = 883-9) O Rh type (test code = 55294-5) POS Antibody screen (gel) (test code = NEG 890-4) Bai LizetteistUrine yxgpbex6251-20-85 09:52:00 Test Item Value Reference Range Interpretation Comments Urine culture SEE NOTE CULTURE, URI NE, (test code = ROUTINE Aram ro 630-4) Number: [id number] Test Status: Final Specimen Source: URINE Specimen Qualit y: Adequate Resul t: Multi ple organisms prese nt, each less than 10,000 CFU/mL. These organisms , commonly found on external and internal genitalia, are considered to be colonizers. No further testing performed. YAMIL (test code = FASTING:UNKNOWNFASTI YAMIL) NG: UNKNOWN RAC (test code = Performing RAC) Organization Information: Site ID: A Name[facility] Address: [address] [place] [id number] Director: Ed Roldan [place] MethodistURINALYSIS, COMPLETE, WITH REFLEX TO [id number] 09:52:00 Test Item Value Reference Range Interpretation Comments Color, UA (test code = YELLOW YELLOW 5778-6) Appearance (test code = CLOUDY CLEAR A 5767-9) Specific gravity, urine 1.024 1.001-1.035 (test code = 5811-5) pH, urine (test code = < OR = 5.0 5.0-8.0 5803-2) Glucose, urine (test 1+ NEGATIVE A code = 74250-0) Bilirubin, UA (test code NEGATIVE NEGATIVE = 5770-3) Ketones, UA (test code = NEGATIVE NEGATIVE 2514-8) Occult blood, urine NEGATIVE NEGATIVE (test code = 5794-3) Protein, UA (test code = 3+ NEGATIVE A 01819-9) Nitrite, UA (test code = NEGATIVE NEGATIVE 5802-4) Leukocyte esterase, UA TRACE NEGATIVE A (test code = 5799-2) WBC, UA (test code = 20-40 < OR = 5 /HPF A 5821-4) RBC, UA (test code = 0-2 < OR = 2 /HPF 94856-5) Squamous epithelial 0-5 < OR = 5 /HPF cells, UA (test code = 84174-5) Bacteria, UA (test code NONE SEEN NONE SEEN /HPF = 5769-5) Hyaline casts, UA (test NONE SEEN NONE SEEN /LPF code = 5796-8) Reflex (test code = CULTURE INDICATED - 630-4) RESULTS TO FOLLOW YAMIL (test code = YAMIL) FASTING:UNKNOWNFASTIN G: UNKNOWN RAC (test code = RAC) Performing Organization Information: Site ID: RGA [facility] Address: [address] [place] [id number] Director: Ed Roldan Lab Interpretation (test Abnormal code = 39414-8) [place] MethodistXR Chest 2 Wo0621-22-51 17:00:35Hm Interface, Radiology Results Incoming - 08/27/2019 [...] in the chest.IMPRESSION: No acute intrathoracic abnormality identified.[facility]-[id number] MethodistManual ilfcrbrkgxrc0870-55-42 10:16:54 Test Item Value Reference Range Interpretation Comments Manual differential (test code = PERFORMED 53659-2) Neutrophils (test code = 80.0 % 39-69 H 67813-3) Lymphocytes (test code = 15.0 % 25-45 L 13843-3) Monocytes (test code = 97134-6) 2.0 % 0-10 Eosinophils (test code = 3.0 % 0-5 29095-5) Basophils (test code = 46815-3) 0.0 % 0-1 Metamyelocytes (test code = 0 % 740-1) Promyelocytes (test code = 0 % 783-1) Platelet slide review (test code Yael adequate = 69868-4) Anisocytosis (test code = 702-1) Moderate Polychromasia (test code = Moderate 40034-9) Ovalocytes (test code = 774-0) Moderate Lab Interpretation (test code = Abnormal 04455-4) [place] MethodistCv stress ivfr8758-45-07 19:58:41 Test Item Value Reference Range Interpretation Comments Resting HR (test code 77 = 8791075762) Resting BP (test code 114 = 5562104502) Peak MET Achieved 1 (test code = 5937735308) Protocol Name (test REGADENO code = 7593518502) Time in Exercise 00:01:00 Phase (test code = 3270505593) Max Systolic BP (test 120 code = 4689065060) Max Diastolic BP 60 (test code = 5975648992) Max Heart Rate (test 90 code = 3132181342) Max Predicted Heart 143 Rate (test code = 0393046925) Target HR Formula (220 - Age)*100% (test code = 0911955085) Test Indication (test CHF EVALUATION FOR code = 1905976457) ISCHEMIA Arrhy During Ex (test code = 9244585551) ECG Interp Before EX (test code = 6582114574) ECG Interp During Ex (test code = 0959372141) Ex Summary Comment (test code = 0102983279) Overall HR Response to Exercise (test code = 9724332884) Overall BP Response To Exercise (test code = 2516670834) Reason for Protocol Complete Termination (test code = 4718222881) Stress Test Waveform interpreted in Impression (test code report associated with = 0701511127) image study. No interpretation is provided as part of this Stress ECG report.--Electronically Signed By Farheen Gibbs MD ([id number]), fashion editor Jacqueline Rice ([id number]) on 08/17/2019 7:58:38 PM [facility] myocardial suvdsymhh9557-80-45 11:46:00Interface, Radiology Results In - 08/17/2019 11:46 AM [facility] Nuclear Cardiology and Cardiac CT [address] [place] [address] Myocardial Perfusion Imaging Report Stress ECG tracings are available in [employer], [employer] and [employer] Web All ECG interpretations are included in this reportPat.Name: SEAN MOULTON Pat.ID: [id number] .Date: 08/17/2019 Refer.MD: DOROTA MURILLO MDExamaya Time: 8:39:00 AM Study Type:Myocardial Perfusion ImagingHeight: 58inBSA: 1.33 m2 Age: 7 1940,79Y Sex: FEMALE BP: 114/57 HR: 76 bpm Nuclear Tech:STEPHANIE Barrett, CNMTMaggi. Stat.:Inpatient Room: [facility] A Tape Vol: 19.86, Nuclear Event ID:[id number] Order ID: [id number] Reason for Study:CHF, Evaluate for IschemiaHistory / [...] rate of 85 beats/ minute.Signed 08/17/2019 11:46 AMMoCristela Lantigua MethodistCT Head Wo Eypzfsrp4816-34-67 11:26:07Hm Interface, Radiology Results - 08/16/2019 11:29 AM CSTEXAMINATION: CT HEAD [...] control.IMPRESSION: No acute intracranial hemorrhage or mass effect.HMWB-[id number] MethodistHepatitis B core antibody znbwl2415-79-64 12:13:53 Test Item Value Reference Range Interpretation Comments Hepatitis B core total Ab (test Non-reactive Non-reactive code = 86771-0) Richardson MethodistHepatitis C abvcgesp3856-22-28 12:09:36 Test Item Value Reference Range Interpretation Comments Hepatitis C Ab (test code = Non-reactive Non-reactive 52174-6) Richardson AminHepatitis B surface yxcmchit0312-90-04 11:37:51 Test Item Value Reference Range Interpretation Comments Hepatitis B surface Ab (test Non-reactive Non-reactive code = 98605-1) Richardson Shi Tunneled Dialysis Catheter Zstjtmgxq7924-31-79 07:37:09Hm Interface, Radiology Results 08/14/2019 7:40 AM CSTPROCEDURE:Tunneled hemodialysis catheter placementPerforming [...] nurse and the performing provider.Duration of intraservice mogh-jb-slot anesthesia/sedation: 19 minutesAccess:Local anesthesia was administered. The vein was evaluated with preprocedure ultrasound and noted to be patent. Real-time ultrasound was used to visualize needle entry into the vessel and a permanent image was not stored. A 0.035 inch Amplatz was advanced into the inferior vena cavaand an image was archived.Vein accessed: Right internal jugular vein Access technique:5 Bulgarian micropuncture setVenography:Vein catheterized: N/AIndication for venography: Not [...] details: N/AEstimated blood loss: Less than 10 [facility]-8UW1961YLV Richardson MethodistDNA Ab jhxwyl1833-68-78 14:04:23 Test Item Value Reference Range Interpretation Comments DNA Ab screen (test code = 1297) Not Detected Not-Detected Bai MethodistIonized yhbzzbe8033-45-70 06:09:44 Test Item Value Reference Range Interpretation Comments pH (test code = 2753-2) 7.52 Ionized calcium (test code = 1.06 mmol/L 1.11-1.32 L ) Lab Interpretation (test code = Abnormal 59129-5) [place] MethodistPotassium hrnuk8960-16-59 05:45:59 Test Item Value Reference Range Interpretation Comments Potassium (test code = 2823-3) 4.2 3.5- 5.0 mEq/L [place] MethodistXR Chest 1 Vw Sjoeprbs5672-54-27 09:23:25Hm Interface, Radiology Results 08/12/2019 9:26 AM CSTStudy:XR CHEST 1 VW PORTABLEHistory: ICU pt stable with no clinical status changesCOMPARISON: 08/09/2019IMPRESSION:A single view of thechest. Small to moderate bilateral pleural effusions. No pneumothorax. Likely atelectasis of the lower lobes. Cardiac silhouette is enlarged, stable. Visualized osseous structures are stable.[id number]-[id number] MethodistB natriuretic qwfrvwi1811-39-06 07:02:05 Test Item Value Reference Range Interpretation Comments BNP (test code = 98765-5) 2296 pg/mL 0-100 H Lab Interpretation (test code = Abnormal 23740-1) [place] MethodistGlomerular basement membrane Ab IgG (IFA)2019-08-12 03:09:04 Test Item Value Reference Range Interpretation Comments Glomerular basement Negative Negative INTERPRE TIVE INFORMATION: membrane Ab (test GBM Ab, I gG (IFA)When code = 70173-0) present, IgG antibody to glomerular base ment [...] veloped and characteris tics determined by [facility]. S ee Compliance Stat ement D: Medallia/CSP erformed by DOMENICO mcfadden,Marion Tamez, [place] [address] cuo .lenora.c Dusty vences do, MD, Lab. Director [place] JewOccult blood, gmavl6603-68-04 20:04:48 Test Item Value Reference Interpretation Comments Range Occult blood, stool Positive for A Specimen (test code = Occult blood InformationSpec imen 2334-1) Source: StoolSp ecimen Site: Nonpreser marya Lab Interpretation Abnormal (test code = 56032-6) Richardson AminHemoglobin & xeaxbrquzr7729-04-66 17:18:32 Test Item Value Reference Range Interpretation Comments HGB (test code = 718-7) 10.0 g/dL 12-16 L Resu lts double checked. HCT (test code = 4544-3) 30.2 % 37-47 L Lab Interpretation (test Abnormal code = 35537-2) [place] BaueristSmear rbnhmu2184-33-36 12:04:31 Test Item Value Reference Range Interpretation Comments Platelet slide review (test code Yael adequate = 71452-3) Anisocytosis (test code = 702-1) Moderate Polychromasia (test code = Moderate 63218-0) Ovalocytes (test code = 774-0) Moderate Richardson MethodistPrepare RBC, 2 Zjpbs6714-88-03 11:20:00 Test Item Value Reference Range Interpretation Comments Product name (test code Apheresis Red Cell AS3 = 25) #2 LR Unit number (test code [id number] = 7526610) Product code (test code G3501J30 = 3092) Dispense status (test Transfused code = 24) Blood expiration date (test code = 302) Blood type code (test 5100 code = 308) Blood type (test code = O POSITIVE 1314) Compatibility (test Compatible code = 6400) Richardson BaueristANA tgrin7541-04-02 10:33:49 Test Item Value Reference Range Interpretation Comments TORITO titer (test code = 23800-3) 1:160 Not-Detected A TORITO pattern (test code = 12858-1) Speckle Not-Detected A Lab Interpretation (test code = Abnormal 50484-7) Richardson EehjrdpxtPPB7962-54-36 10:30:09 Test Item Value Reference Range Interpretation Comments TORITO screen (test code Positive Negative A Test p erformed using = 550) NOVA Kolorifice DAPI TORITO kit (Indirect Immunofluoresce nce Assay) for Anti -Nuclear Antibody on Modern MeadowA-GLOBAL FOOD TECHNOLOGIESer 16 0 Analyzer. Lab Interpretation Abnormal (test code = 29498-5) Richardson Millerti-neutrophilic cytoplasmic Abs jemaq5984-30-68 13:19:32 Test Item Value Reference Range Interpretation Comments ANCA screen (test code = 3472) Negative Negative Richardson AminUS Renal Nqribrh1502-98-16 22:31:53Hm Interface, Radiology Results - 08/09/2019 10:35 PM CSTEXAMINATION: US RENAL [...] may be related to underlying medical/parenchymal renal disease.[facility]-6FC0215YUSYziwdfi MethodistBody fluid qfytxpj6573-63-61 22:18:09 Test Item Value Reference Range Interpretation Comments Body fluid consult Done Approxima tely 1 granular (test code = 987) cast per l ow power field. One hyaline abilio t per low power field. S mall cluster of tubular epit helial cells. No tubu lar epithelial cast s seen. Findings review ed with Dr. Saldaña on 08/09/2019Revie wed by Camila Richard M.D. Richardson BaueristSmith fbzkshmt3223-81-30 16:56:14 Test Item Value Reference Range Interpretation Comments Barnett antibody (test <0.2 0.0- 0.9 AI code = 30612-5) Barnett antibody Negative AI Anti-Barnett an tibodies interp (test code = occurs i n 30-35% of 5269) systemic lupus erythematosus ( SLE) cases, but is v cesar specific for SL E. It may also present in mixed connective-tiss ue disease (MCTD). Bai MethodistSerum fnoeqjuzrktabbw9830-09-74 16:36:40 Test Item Value Reference Range Interpretation Comments Protein (test code = 5.8 g/dL 6.3-8.3 L Bellamy 9994.6-7.0 2885-2) g/dL1 xqdu0994.4-7.6 g/dL7 months-4zrze810 .1-7 .3 g/dL1-2 pvuyn658.6-7.5 g/dL>3 .0-8.0 g/vC85-8277941. 3-8. 3 g/dL SPE albumin (test code [...] nd interpretation (test albumin are code = 35331-8) decreased suggesting prot ein malnutrition. SPE interpretation See Comment Blas chaparro MD; (test code = 2218) Gabino avila MD; Sharon Zhou, PhD ; Home Gooden MD Lab Interpretation Abnormal (test code = 48676-2) [place] MethodistC4 complement tkfvqjacc8056-72-76 13:24:20 Test Item Value Reference Range Interpretation Comments C4 complement (test code = 4498-2) 38 mg/dL 10-40 [place] MethodistC3 complement alipgjsoo9150-14-02 13:24:20 Test Item Value Reference Range Interpretation Comments C3 complement (test code = 4485-9) 92 mg/dL 90-180 [place] MethodistUrinalysis, automated with hmerksrpne4264-92-50 13:04:31 Test Item Value Reference Range Interpretation Comments Color, UA (test code = 5778-6) Straw Appearance, UA (test code = 5767-9) Clear Specific gravity, UA (test code = 1.006 1.001-1.035 5811-5) pH, UA (test code = 5803-2) 5.0 5.0-8.5 Protein, UA (test code = 08437-1) 3+ Negative A Glucose, UA (test code = 84172-1) 3+ Negative A Ketones, UA (test code = 2514-8) Negative Negative Bilirubin, UA (test code = 5770-3) Negative Negative Blood, UA (test code = 5794-3) Small Negative A Nitrite, UA (test code = 5802-4) Negative Negative Urobilinogen, UA (test code = <2.0 <2.0 24711-8) Leukocyte esterase, UA (test code = Negative Negative 5799-2) Epithelial cells, UA (test code = <1 /HPF 5787-7) WBC, UA (test code = 5821-4) None seen 0- 4 /HPF RBC, UA (test code = 60308-5) 2 0- 5 /HPF Bacteria, UA (test code = 73122-0) Few None seen Granular casts, UA (test code = 1 0- 1 /LPF 5793-5) Hyaline casts, UA (test code = 1 /LPF 5796-8) Yeast, UA (test code = 42944-3) None seen Yeast with pseudohyphae, UA (test None seen code = 19479-0) Lab Interpretation (test code = Abnormal 90770-7) [place] MethodistCreatine kinase, total (CPK)2019-08-09 06:37:57 Test Item Value Reference Range Interpretation Comments Creatine kinase (test code = 2157-6) 42 U/L 26-192 [place] JimbmqzsoP-kujty7474-66-20 05:56:05 Test Item Value Reference Range Interpretation Comments D-dimer (test code = 2.05 0.00- 0.40 ug/mL H Uni ts are ug/ml 33999-6) FEU Fibrinogen Equivalent Unit .When combined with [...] malignancies. Lab Interpretation Abnormal (test code = 35306-0) [place] MethodistVenous blood uuc0344-87-13 05:34:02 Test Item Value Reference Range Interpretation Comments pH, venous (test code = 2746-6) 7.28 7.32-7.42 L pCO2, venous (test code = 2020-4) 44 45- 51 mmHg L pO2, venous (test code = 2705-2) 39 25- 40 mmHg Base excess, venous (test code = -6 meq/L -2-2 L 1927-3) O2 saturation, venous (test code 66 % 40-70 = 2711-0) Bicarbonate, venous (test code = 20.2 mmol/L 21-28 L 93390-1) Lab Interpretation (test code = Abnormal 59405-5) [place] MethodistKappa lambda free light chain with darbe1388-24-80 02:34:26 Test Item Value Reference Range Interpretation Comments Birney light chain (test code = 164.45 mg/L 3.3-19.4 H 49427-3) Lambda light chain (test code = 95.70 mg/L 5.7-26.3 H 82332-3) Birney lambda ratio (test code = 1.72 0.26-1.65 H 11713-6) Lab Interpretation (test code = Abnormal 50625-9) [place] MethodistLactic acid ljrnm7377-70-01 01:03:49 Test Item Value Reference Range Interpretation Comments Lactic acid (test code = 42280-5) 0.8 mmol/L 0.5-2.2 [place] MethodistUs carotid hhzfux8273-92-87 00:28:00Interface, Radiology Results In - 08/09/2019 12:28 AM [facility] Vascular Ultrasound Laboratory Carotid Artery Duplex [address] [place] [address] For director of quality purposes, the categorization of the degree of the stenosis of this exam is based on criteria described in the IAC carotid stenosis grading white paper( www.intersocietal.org/Vascular) and Josias Christian., Sandeep Quach., et al. Carotid artery stenosis: romano-scale and Doppler US diagnosis--Society of Radiologists in Ultrasound Consensus Conference. Radiology. 2003 Nov; 229(2):340-6. Pat.Name: SEAN MOULTON Pat.ID: [id number] .Date: 08/08/2019 Refer.MD: EMILY ULLOA MD Exam Time: 8:33:00 PM Study Type:Carotid Age: 7 1940,79Y Sex: FEMALE Sonogrphr: ADALI Thakur, JEVON Pat. Stat.:Inpatient Room: [place] [address] Tape Vol: EMMIE, CPT - 4: 09689 Echo Event ID:[id number] Order ID: [id number] Reason for Study:Dizziness. History of CKD, PVD, [...] PSV 1.43 Signed 12:28 Jaron Atkinson MD, RPVIBurnsville MethodistEchocardiogram complete w contrast and 3D if yzjpiw6445-95-34 22:43:00Interface, Radiology Results In - 08/08/2019 10:43 PM MICROPALEONTOLOGIST Echocardiography Report [address] [place] [address] Pat.Name: SEAN MOULTON Pat.ID: [id number].Date: 08/08/2019 Refer.MD: EMILY ULLOA MD Exam Time: 12:19:00 AM Study Type:Routine Echo Height: 58in Weight: 106lb BSA: 1.39 m2 Age: 7 1940,79Y Sex: FEMALE BP: 168/77 HR: 70 bpm Sonogrphr: JEVON Villa, BARRONT Pat. Stat.:Inpatient Room: ED-20 CPT - 4: 10636, 73279, [address]7043 Study Status:Final Echo Event ID:[id number] Order ID: [id number] Reason for Study:SOB Procedures: 2D Echo, 2D Echo, Colorflow Doppler, PortableRace: C SUMMARY:------- LV size is dbol-eq-tatcdelygp enlarged. LV EF is moderately toseverely depressed.Regional wall motion abnormalities present. Estimated EF is 30-34%.Pleural effusion is present.LV filling pressure is borderline elevated.Estimated PA systolic pressure is 33-38 mmHg, assuminga mean RAP of0-5 mmHg. FINDINGS: ------LV: LV size is ngkg-pl-injfwhgxmy enlarged. LV EF is moderately to severely [...] RAP of 0-5 mmHg. -MEASUREMENTS: 2DParasternal [place] Ao An 1.7 cm LVPWd 0.67 cm [...] Index = 1.7Signed 08/08/2019 10:43 PMDilan Mcpherson M.D.[place] MethodistUS Onkce7029-61-49 18:33:43 Interface, Radiology Results 08/08/2019 6:36 PM CSTEXAMINATION: [...] No stones or hydronephrosis on either side. [facility]-EL33UETLXsngidf MethodistUrinalysis screen and microscopy, with reflex to uoidvpc8527-64-82 17:26:59 Test Item Value Reference Range Interpretation Comments Specimen site (test code = Clean catch 8641276) Color, UA (test code = 5778-6) Straw Appearance, UA (test code = Hazy 5767-9) Specific gravity, UA (test code = 1.006 1.001-1.035 5811-5) pH, UA (test code = 5803-2) 5.0 5.0-8.5 Protein, UA (test code = 76163-0) 2+ Negative A Glucose, UA (test code = 05261-3) 3+ Negative A Ketones, UA (test code = 2514-8) Negative Negative Bilirubin, UA (test code = Negative Negative 5770-3) Blood, UA (test code = 5794-3) Moderate Negative A Nitrite, UA (test code = 5802-4) Negative Negative Urobilinogen, UA (test code = <2.0 <2.0 21840-2) Leukocyte esterase, UA (test code Negative Negative = 5799-2) WBC, UA (test code = 5821-4) 10 0- 4 /HPF H RBC, UA (test code = 26542-6) 6 0- 5 /HPF H Bacteria, UA (test code = Few None seen 41737-8) Yeast, UA (test code = 65643-9) None seen Yeast with pseudohyphae, UA (test None seen code = 17599-7) Amorphous crystals (test code = Few 57278-5) Granular casts, UA (test code = 3 0- 1 /LPF H 5793-5) Lab Interpretation (test code = Abnormal 99572-5) Richardson MethodistCreatinine level, urine, nddrrw1514-06-64 17:08:02 Test Item Value Reference Range Interpretation Comments Creatinine, urine, random (test code 23 mg/dL = 61902-3) Richardson MethodistProtein, urine, czxabh6167-24-00 17:08:02 Test Item Value Reference Range Interpretation Comments Protein, urine random (test code = 153 mg/dL 2888-6) Bai MethodistUrea nitrogen, urine, qsdtfm7584-65-15 17:08:02 Test Item Value Reference Range Interpretation Comments Urea nitrogen, urine, random (test 184 mg/dL code = 3095-7) Richardson MethodistSodium level, urine, vestam0775-30-33 17:08:01 Test Item Value Reference Range Interpretation Comments Sodium, urine, random (test code = 109 mEq/L 45390-2) Bai MethodistHemoglobin Y0j3661-83-72 08:56:39 Test Item Value Reference Range Interpretation Comments Hemoglobin A1C (test 8.3 % 4-5.6 H HbA1c c utoffs for code = 19750-5) diagnosing diabetes:4.0% - 5.6% = normal5.7% - 6.4% = increased risk for diabetes (prediabetes)9> =6.5% = bauxpauh2Vhns s for glycemic contro l (ADA 2016)< 7.0% Ta rget for non adults with miguel betes. More or less stringent targe ts may be appropriate for individual kasey ents. <7.5% Target for Children and adolescents wit h type 1 diabetes. Lab Interpretation (test Abnormal code = 01373-5) Richardson OtooleKledamsjaXxscrijt1131-33-63 05:06:08 Test Item Value Reference Range Interpretation Comments Troponin (test code = 0.075 ng/mL 0-0.04 H In pat ients 86354-4) suspected of nguyễn ving a myocardial infarction, [...] ----- Karlo cardi al infarction V [facility]Bocleveland [facility] 0 hr and 3 hr TnI levels <= 0.04 ng/mL(within no rmal limits) OR 0 hr is > 0.04 ng/mL and 3 hr is increased OR decreased by le ss than 0.020 ng/m L Lab Interpretation Abnormal (test code = 69800-4) Bai MethodistComprehensive metabolic wxuur0713-47-04 03:22:26 Test Item Value Reference Range Interpretation Comments Sodium (test code = 140 135- 148 mEq/L 2951-2) Potassium (test code = 4.7 3.5- 5.0 mEq/L 2823-3) Chloride (test code = 109 98- 112 mEq/L 2075-0) CO2 (test code = 2027-9) 16 24- 31 mEq/L L Anion gap (test code = 15@ANIO 7- 15 mEq/L 65431-9) BUN (test code = 3094-0) 67 mg/dL 8-23 H Creatinine (test code = 4.80 mg/dL 0.5-0.9 H 2160-0) Glucose (test code = 180 mg/dL 65-99 H 2345-7) Calcium (test code = 7.9 mg/dL 8.8-10.2 L 39748-2) Protein (test code = 6.0 g/dL 6.3-8.3 L Bellamy 9994.6-7.0 2885-2) g/dL1 enlp2231.4-7.6 g/dL7 months-7upev755 .1- 7.3 g/dL1-2 yyjcj776.6-7.5 g/dL>3 .0-8.0 g/mB52-1272245. 3-8 .3 g/dL Albumin (test code = 2.1 g/dL 3.5-5 L 1751-7) A/G ratio (test code = 0.5 0.7-3.8 L 1759-0) Alkaline phosphatase 58 U/L 35-104 (test code = 6768-6) AST (test code = 1920-8) 19 U/L 10-35 ALT (test code = 1742-6) 12 U/L 5-50 Total bilirubin (test <0.2 0-1.2 code = 1974-2) Lab Interpretation (test Abnormal code = 94962-6) juan daniel Conley2020-02-19 02:41:26 Test Item Value Reference Range Interpretation Comments T4, free (test code = 3024-7) 1.3 ng/dL 0.9-1.7 Bai MethodistThyroid stimulating odxtdfw6465-30-54 02:41:26 Test Item Value Reference Range Interpretation Comments TSH (test code = 3016-3) 4.68 0.27- 4.20 uIU/mL H Lab Interpretation (test code = Abnormal 85508-0) Bai MethodistLipid qgfaa3107-23-70 02:36:45 Test Item Value Reference Interpretation Comments Range Cholesterol (test 259 mg/dL <200 H code = 2093-3) Triglycerides (test 179 mg/dL <150 H code = 2571-8) HDL cholesterol 48 mg/dL >40 (test code = 2085-9) LDL cholesterol 188 mg/dL <100 H Result obtai justino by direct (test code = 2089-1) LDL joslyn surement Lipid panel SeeBelow Total Cholester ol (mg/dL) interpretation (test < 200 code = 55350-2) Desirable 200-239 Borderline -high >=240 Hi gh [...] mg/dL) Lab Interpretation Abnormal (test code = 48908-3) Richardson MethodistCRITICAL ZJLR6680-07-13 20:33:40SGabino alexander MD 08/08/2019 1:39 PMCritical CarePerformed [...] of patient's condition and review of old chartsRichardson AminLipase bnlmy9632-27-61 19:20:04 Test Item Value Reference Range Interpretation Comments Lipase (test code = 3040-3) 87 U/L 13-60 H Lab Interpretation (test code = Abnormal 79024-2) Richardson BaueristAmylase qcqxp9370-62-79 19:20:02 Test Item Value Reference Range Interpretation Comments Amylase (test code = 1798-8) 100 U/L 28-100 Richardson Amin
[2020-04-26] MEDS ORDERED: NA CHLORIDE 0.9% 0 ML ONE (20:08)
[2020-04-26 20:16] LABS: Absolute Lymphocytes (CBC) 0.3 K/uL (0.7-4.9); Basophils % 0.7 % (0-1.3); Hematocrit 22.2 % (36.0-45.0); Lymphocytes % 4.9 % (15.3-44.8); RBC Red Blood Cell Count 2.52 M/uL (3.86-4.86)
[2020-04-26 20:20] LABS: Protime INR 1.07
--- NOTE | 2020-04-26 20:29 | RAD REPORT ---
EXAM DESCRIPTION: CT - Ct Stroke Brain Wo Cont - 04/26/2020 8:05 pm CLINICAL HISTORY: Confusion/alteration of awareness COMPARISON: 2010 TECHNIQUE: Computed axial tomography of the head was obtained. All CT scans are performed using dose optimization technique as appropriate and may include automated exposure control or mA/KV adjustment according to patient size. FINDINGS: An intracranial bleed is not seen . The ventricles are normal in caliber. No extra-axial fluid collection is noted. 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 Fluid within the sinuses/ mastoids is not seen. IMPRESSION: No acute intracranial abnormality is seen. If patient continues to have symptoms to sugg est an acute infarct then MRI would be recommended Dr Arnold of the emergency room was notified at 7:38 p.m. April 26, 2020
--- NOTE | 2020-04-26 20:30 | RAD REPORT ---
EXAM DESCRIPTION: Asim Single View04/26/2020 8:09 pm CLINICAL HISTORY: Fever COMPARISON: October 2019 FINDINGS: The lungs appear clear of acute infiltrate. The heart is normal size. A central venous ca theter remains in place IMPRESSION: No acute abnormalities displayed
[2020-04-26 20:45] LABS: Blood Morphology Comment NOT SEEN (NOT SEEN); Platelet Estimate ADEQ; White Blood Cell Scan OK (OK)
[2020-04-26 20:56] LABS: ALT/SGPT < 6 U/L (12-78); AST/SGOT 10 U/L (15-37); Albumin 2.5 g/dL (3.4-5.0); Alkaline Phosphatase 56 U/L (45-117); Amylase 70 U/L (25-115); BUN Blood Urea Nitrogen 31 mg/dL (7-18); Bicarbonate 31 mmol/L (21-32); Bilirubin Direct < 0.1 mg/dL (0-0.2); Bilirubin Total 0.3 mg/dL (0.2-1.0); CKMB Creatine Kinase MB < 1.0 ng/mL (0.3-3.6); Creatine Phosphokinase 38 U/L (26-192); Glucose Level 93 mg/dL (74-106); Lipase 83 U/L (73-393); Potassium 3.1 mmol/L (3.5-5.1); Protein, Total 7.3 g/dL (6.4-8.2); Sodium Level 141 mmol/L (136-145)
[2020-04-26 20:57] LABS: Troponin (Emerg Dept Use Only) 0.65 ng/mL (0.0-0.045)
--- NOTE | 2020-04-26 21:11 | EDPHYS ---
Physician Documentation [facility] Name: Aury Garcia Age: 80 yrs Sex: Female : 1940 Arrival Date: 04/26/2020 Time: 19:15 Bed 14 Private MD: ED Physician Adalid Arnold HPI: 04/27 06:38 This 80 yrs old Female presents to ER via Ambulatory with complaints of fever. tw4 06:38 The patient reports fever, not measured (subjective). Onset: The symptoms/episode tw4 began/occurred today. Modifying factors: there are no obvious modifying factors. Associated signs and symptoms:. Severity of symptoms: At their worst the symptoms were moderate in the emergency department the symptoms are unchanged. The patient has not experienced similar symptoms in the past. Historical: - Allergies: 04/26 19:20 Codeine; ll1 19:20 Tramadol HCl; ll1 - Home Meds: 19:20 aspirin 81 mg Oral TbEC 1 tab once daily [Active]; atorvastatin 20 mg Oral tab 1 tab ll1 once daily [Active]; carvedilol 12.5 mg Oral tab 1 tab every 12 hours [Active]; Novolog 100 unit/mL Sub-Q soln 5 unit [Active]; pantoprazole 40 mg Oral TbEC 1 tab once daily [Active]; 22:11 levothyroxine 50 mcg oral tab 1 tab once daily [Active]; pentoxifylline 400 mg Oral jb4 TbER 1 tab 2 times per day [Active]; latanoprost 0.005 % ophthalmic drop 1 drop once daily [Active]; hydralazine 25 mg Oral tab 1 tab 2 times per day [Active]; sevelamer carbonate 800 mg oral tab 1 tab 3 times per day [Active]; - PMHx: 19:20 chronic kidney disease; CVA; Dementia; Diabetes - IDDM; Dialysis; Hyperlipidemia; ll1 Hypertension; Hypothyroidism; TIA; - Immunization history:: Adult Immunizations unknown. - Social history:: Smoking status: unknown. ROS: 04/27 06:38 Eyes: Negative for injury, pain, redness, and discharge. tw4 Cardiovascular: Negative for chest pain, palpitations, and edema, Respiratory: Negative for shortness of breath, cough, wheezing, and pleuritic chest pain, Abdomen/GI: Negative for abdominal pain, nausea, vomiting, diarrhea, and constipation, Back: Negative for injury and pain, MS/Extremity: Negative for injury and deformity, Skin: Negative for injury, rash, and discoloration. Constitutional: Positive for fever, Negative for body aches, chills, fatigue, malaise, poor PO intake. Neuro: Positive for altered mental status, Negative for dizziness, gait disturbance, headache, hearing loss, loss of consciousness, numbness, seizure activity, speech changes, syncope, near syncope, tingling, tinnitus, tremor, visual changes. Exam: 06:38 Constitutional: This is a well developed, well nourished patient who is awake, alert, tw4 and in no acute distress. Head/Face: Normocephalic, atraumatic. Chest/axilla: Normal chest wall appearance and motion. Nontender with no deformity. No lesions are appreciated. Cardiovascular: Regular rate and rhythm with a normal S1 and S2. No gallops, murmurs, or rubs. Normal PMI, no JVD. No pulse deficits. Respiratory: Lungs have equal breath sounds bilaterally, clear to auscultation and percussion. No rales, rhonchi or wheezes noted. No increased work of breathing, no retractions or nasal flaring. Abdomen/GI: Soft, non-tender, with normal bowel sounds. No distension or tympany. No guarding or rebound. No evidence of tenderness throughout. Skin: Warm, dry with normal turgor. Normal color with no rashes, no lesions, and no evidence of cellulitis. MS/ Extremity: Pulses equal, no cyanosis. Neurovascular intact. Full, normal range of motion. 06:38 Neuro: Orientation: to person, Not oriented to place, time, Mentation: Cranial nerves: CN II- XII are normal as tested, Motor: is normal, Sensation: no obvious gross deficits. Vital Signs: 04/26 19:16 BP 168 / 54; Pulse 82; Resp 18; Temp 100.1(O); Pulse Ox 95% on R/A; Pain 0/10; ll1 19:30 Weight 45.36 kg (R); Height 4 ft. 10 in. (147.32 cm) (R); jb4 20:45 BP 140 / 53; Pulse 70; Resp 16; Temp 99.8(O); Pulse Ox 97% on R/A; jb4 21:45 BP 149 / 43; Pulse 66; Resp 16; Pulse Ox 98% on R/A; jb4 22:56 BP 163 / 46; Pulse 69; Resp 15; Temp 98.6(TE); Pulse Ox 99% on R/A; jb4 23:30 BP 167 / 53; Pulse 67; Resp 15; Temp 99.2(TE); Pulse Ox 98% on R/A; jb4 19:30 Body Mass Index 20.90 (45.36 kg, 147.32 cm) jb4 MDM: 19:26 Patient medically screened. tw4 04/27 06:38 Differential diagnosis: viral Infection, bacterial infection, URI, bronchitis, tw4 pneumonia. Data reviewed: vital signs, nurses notes. Data reviewed: lab test result(s), CBC, electrolytes, radiologic studies, CT scan, plain films. Data interpreted: Pulse oximetry: Interpretation: normal. Counseling: I had a detailed discussion with the patient and/or guardian regarding: the historical points, exam findings, and any diagnostic results supporting the discharge/admit diagnosis, lab results, radiology results. Physician consultation: Tony Dempsey regarding admission, to the telemetry unit. patient's condition, and will see patient in inpatient room. 04/26 19:41 Order name: Amylase, Serum; Complete Time: 21:4 04/26 19:41 Order name: Basic Metabolic Panel; Complete Time: 21: tw4 04/26 19:41 Order name: Blood Culture Adult (2) tw4 04/26 19:41 Order name: CBC with Diff; Complete Time: 21:4 04/26 19:41 Order name: Ckmb; Complete Time: 21:07 4 04/26 19:41 Order name: CPK; Complete Time: 21:07 4 04/26 19:41 Order name: Lactate; Complete Time: 21:07 4 04/26 19:41 Order name: LFT's; Complete Time: 21:07 tw4 04/26 19:41 Order name: Lipase; Complete Time: 21:07 tw4 04/26 19:41 Order name: Procalcitonin; Complete Time: 21:07 tw4 04/26 19:41 Order name: Protime (+inr); Complete Time: 21:07 [facility] 04/26 19:41 Order name: Ptt, Activated; Complete Time: 21:07 [facility] 04/26 19:41 Order name: Troponin (emerg Dept Use Only); Complete Time: 21:07 [facility] 04/26 19:41 Order name: Urine Microscopic Only [facility] 04/26 19:41 Order name: Chest Single View XRAY; Complete Time: 21:07 4 04/26 19:41 Order name: Accucheck; Complete Time: 20:07 [facility] 04/26 19:41 Order name: Cardiac monitoring; Complete Time: 20:07 4 04/26 19:41 Order name: EKG - Nurse/Tech; Complete Time: 20:07 [facility] 04/26 19:41 Order name: IV Saline Lock - Large Bore; Complete Time: 20:07 [facility] 04/26 19:41 Order name: Labs collected and sent; Complete Time: 20:07 [facility] 04/26 19:41 Order name: CT Stroke Brain w/o Contrast; Complete Time: 21:07 [facility] 04/26 20:05 Order name: Glucose, Ancillary Testing; Complete Time: 21:07 [facility] 04/26 20:18 Order name: CBC Smear Scan; Complete Time: 21:07 [facility] 04/26 20:36 Order name: Type And Screen [facility] 04/26 20:42 Order name: Packed RBC Leukored [facility] 04/26 21:36 Order name: Urine Dipstick--Ancillary (enter results) [facility] 04/26 22:46 Order name: SARS-COV-2 RT PCR [facility] 04/26 19:41 Order name: O2 Per Protocol; Complete Time: 20:07 [facility] 04/26 19:41 Order name: O2 Sat Monitoring; Complete Time: 20:08 [facility] 04/26 19:41 Order name: Urine Dipstick-Ancillary (obtain specimen); Complete Time: 21:25 [facility] 04/26 19:41 Order name: Stroke Swallow Screen; Complete Time: 20:17 tw4 Administered Medications: 04/26 20:08 Not Given (Physician Discretion; PT on dyalisis, missed todays treatment due to port jb4 complications): NS 0.9% (30 ml/kg) 30 ml/kg IV at bolus once; Sepsis Protocol 21:50 Drug: vancoMYCIN 1 grams Route: IVPB; Infused Over: 2 hrs; Site: left antecubital; jb4 23:50 Follow up: Response: No adverse reaction; IV Status: Completed infusion; IV Intake: jb4 250ml Point of Care Testing: Blood Glucose: 19:30 Blood Glucose: 91 mg/dL; jb4 Ranges: Critical Glucose Levels:Adult <50 mg/dl or >400 mg/dl <40 mg/dl or >180 mg/dl Disposition: 04/26/20 21:10 Hospitalization ordered by Tony Dempsey for Inpatient Admission. Preliminary diagnosis are Anemia in chronic kidney disease, Altered mental status, unspecified, Fever, unspecified. - Bed requested for Telemetry/MedSurg (Inpatient). - Status is Inpatient Admission. rv - Condition is Stable. - Problem is new. - Symptoms have improved. Signatures: Dispatcher [employer] [facility] Pooja Coronado RN RN dw Tucker Palmer RN RN jb4 Adalid Arnold MD MD tw4 Liban Quintana RN RN rv Lewis, Lynsay, RN RN ll1 Corrections: (The following items were deleted from the chart) 21:44 21:11 CORONAVIRUS+ ordered. [facility] 22:12 19:20 Home Meds: amlodipine 5 mg tab 1 tab once daily; [facility] jb4 22:12 19:20 Home Meds: docusate sodium 100 mg Oral cap 1 cap once daily; [facility] jb4 22:12 19:20 Home Meds: hydroxyzine HCl 25 mg Oral tab 1 tab 3 times per day; [facility] jb4 22:12 19:20 Home Meds: levothyroxine 25 mcg tab 1 tab once daily; [facility] jb4 22:12 19:20 Home Meds: lorazepam 0.5 mg Oral tab 1 tab 3 times per day; per daughter "she is jb4 not taking that anymore and i dont know exactly when she stopped it"; 1 22:12 19:20 Home Meds: pentoxifylline 400 mg Oral TbER 1 tab 3 times per day; ll1 jb4 23:02 21:10 Hospitalization Ordered by Tony Dempsey for Inpatient Admission. Preliminary dw diagnosis is Anemia in chronic kidney disease; Altered mental status, unspecified; Fever, unspecified. Bed requested for Telemetry/MedSurg (Inpatient). Status is Inpatient Admission. Condition is Stable. Problem is new. Symptoms have improved. tw4 04/27 00:16 04/26 23:02 04/26/2020 21:10 Hospitalization Ordered by Tony Dempsey for Inpatient rv Admission. Preliminary diagnosis is Anemia in chronic kidney disease; Altered mental status, unspecified; Fever, unspecified. Bed requested for Telemetry/MedSurg (Inpatient). Status is Inpatient Admission. Condition is Stable. Problem is new. Symptoms have improved. dw
--- NOTE | 2020-04-26 21:11 | ER ---
Nurse's Notes [facility] Name: Aury Garcia Age: 80 yrs Sex: Female : 1940 Arrival Date: 04/26/2020 Time: 19:15 Bed 14 Private MD: Diagnosis: Anemia in chronic kidney disease;Altered mental status, unspecified;Fever, unspecified Presentation: 04/26 19:16 Chief complaint: EMS states: WE were called out due to patient having a high fever and ll1 being unresponsive. when we arrived the patient was responsive only to pain and had temp of 102. Pt is now awake and looks at us when we call her name, pt does not talk which the family says is not normal. Pt appears to be favoring the left side, she has a history or dialysis port infections and TIA. Coronavirus screen: Client denies travel out of the [place] in the last 14 days. At this time, the client does not indicate any symptoms associated with coronavirus-19. Ebola Screen: No symptoms or risks identified at this time. Initial Sepsis Screen: Does the patient meet any 2 criteria? Altered Mental Status. Yes Does the patient have a suspected source of infection? No. Patient's initial sepsis screen is negative. Risk Assessment: Do you want to hurt yourself or someone else? Patient reports no desire to harm self or others. Onset of symptoms was April 26, 2020. Transition of care: patient was not received from another setting of care. 19:16 Method Of Arrival: Ambulatory ll1 19:16 Acuity: JOSE 2 ll1 19:30 An acute neurological deficit is present. The charge nurse has been notified. The jb4 patients blood glucose was checked before arriving to the hospital and was found to be normal. Triage Assessment: 19:20 The onset of the patients symptoms was at an unknown time. General: Appears in no jb4 apparent distress. comfortable, Behavior is calm, uncooperative. Stroke Activation: symptom onset time unknown Physician: Stroke Attending; Name: ; Notified At: ; Arrived At: Physician: Chief Stroke Resident; Name: ; Notified At: ; Arrived At: Physician: Stroke Resident; Name: ; Notified At: ; Arrived At: Physician: ED Attending; Name: Catalina; Notified At: 19:39; Arrived At: 19:30 Physician: ED Resident; Name: ; Notified At: ; Arrived At: Historical: - Allergies: 19:20 Codeine; ll1 19:20 Tramadol HCl; ll1 - Home Meds: 19:20 aspirin 81 mg Oral TbEC 1 tab once daily [Active]; atorvastatin 20 mg Oral tab 1 tab ll1 once daily [Active]; carvedilol 12.5 mg Oral tab 1 tab every 12 hours [Active]; Novolog 100 unit/mL Sub-Q soln 5 unit [Active]; pantoprazole 40 mg Oral TbEC 1 tab once daily [Active]; 22:11 levothyroxine 50 mcg oral tab 1 tab once daily [Active]; pentoxifylline 400 mg Oral jb4 TbER 1 tab 2 times per day [Active]; latanoprost 0.005 % ophthalmic drop 1 drop once daily [Active]; hydralazine 25 mg Oral tab 1 tab 2 times per day [Active]; sevelamer carbonate 800 mg oral tab 1 tab 3 times per day [Active]; - PMHx: 19:20 chronic kidney disease; CVA; Dementia; Diabetes - IDDM; Dialysis; Hyperlipidemia; ll1 Hypertension; Hypothyroidism; TIA; - Immunization history:: Adult Immunizations unknown. - Social history:: Smoking status: unknown. Screenin:20 Abuse screen: Denies threats or abuse. Nutritional screening: No deficits noted. jb4 Tuberculosis screening: No symptoms or risk factors identified. Fall Risk None identified. Assessment: 19:20 General: Appears in no apparent distress. comfortable, Behavior is calm, appropriate jb4 for age, uncooperative. Pain: Unable to use pain scale. FLACC scale score is 0 out of 10. Neuro: Level of Consciousness is awake, confused, Oriented to person, Moves all extremities. Facial droop on left, Pupils are PERRLA. Cardiovascular: Patient's skin is warm and dry. Respiratory: Airway is patent Respiratory effort is even, unlabored, Respiratory pattern is regular, symmetrical. GI: No signs and/or symptoms were reported involving the gastrointestinal system. : No signs and/or symptoms were reported regarding the genitourinary system. EENT: No signs and/or symptoms were reported regarding the EENT system. Derm: Skin is intact, Skin is pink, warm \\T\\ dry. Musculoskeletal: Circulation, motion, and sensation intact. Range of motion: intact in all extremities. 19:30 VAN Scoring: Arm Drift: Patients demonstrates NO arm weakness. Patient is VAN Negative. jb4 The patient has not been NPO before screening. The patient is not alert and/or unable to follow commands. PT unable to verbally respond. The patient is exhibiting difficulty speaking. PT unable to respond to verbal commands. The patient is able to swallow own secretions with no drooling or need for suction. PT failed due to being unable to speak, provider notified. Pt not given water, failed due to being unable to speak. The patient failed the bedside swallow screening. The patient will be kept NPO until cleared by Speech Therapy or Physician. Provider notified of bedside swallow screening results: Adalid Arnold MD. 19:30 Reassessment: Unable to fully perform stroke scale do to patient not being able to jb4 respond. 19:34 Reassessment: PT to CT. jb4 20:50 Reassessment: PT is now responding to questions. Is still very tired, and is not able jb4 to answer all questions. Respirations remain even and unlabored, no s/s of pain or distress noted. PT is currently A\\T\\Ox1. Patient no longer has any noticeable facial droop. 21:54 Reassessment: Patient appears in no apparent distress at this time. Patient and/or jb4 family updated on plan of care and expected duration. Pain level reassessed. PT is now Alert to person and place and is more awake than before. 23:00 Reassessment: Patient appears in no apparent distress at this time. No changes from jb4 previously documented assessment. Patient and/or family updated on plan of care and expected duration. Pain level reassessed. 23:15 Reassessment: Blood transfusion started. jb4 04/27 00:10 Reassessment: Patient appears in no apparent distress at this time. Patient and/or jb4 family updated on plan of care and expected duration. Pain level reassessed. PT remains A\\T\\Ox2, son remains at the bedside, pt denies pain. Respirations remain even and unlabored with no s/s of pain or distress noted. Flood continues to infuse with no s/s of transfusion reaction noted. LAC IV flushes with ease. Vital Signs: 04/26 19:16 BP 168 / 54; Pulse 82; Resp 18; Temp 100.1(O); Pulse Ox 95% on R/A; Pain 0/10; ll1 19:30 Weight 45.36 kg (R); Height 4 ft. 10 in. (147.32 cm) (R); jb4 20:45 BP 140 / 53; Pulse 70; Resp 16; Temp 99.8(O); Pulse Ox 97% on R/A; jb4 21:45 BP 149 / 43; Pulse 66; Resp 16; Pulse Ox 98% on R/A; jb4 22:56 BP 163 / 46; Pulse 69; Resp 15; Temp 98.6(TE); Pulse Ox 99% on R/A; jb4 23:30 BP 167 / 53; Pulse 67; Resp 15; Temp 99.2(TE); Pulse Ox 98% on R/A; jb4 19:30 Body Mass Index 20.90 (45.36 kg, 147.32 cm) jb4 ED Course: 19:15 Patient arrived in ED. ll1 19:19 Triage completed. ll1 19:20 Arm band placed on right wrist. ll1 19:21 Patient has correct armband on for positive identification. Bed in low position. Call ll1 light in reach. Side rails up X 1. Pulse ox on. NIBP on. 19:25 Tucker Palmer, RN is Primary Nurse. jb4 19:26 Adalid Arnold MD is Attending Physician. tw4 19:45 Missed attempt(s): 20 gauge in right antecubital area. 22 gauge in right antecubital jb4 area. Bleeding controlled, band aid applied, catheter tip intact. 20:05 CT Stroke Brain w/o Contrast In Process Unspecified. EDMS 20:10 Chest Single View XRAY In Process Unspecified. EDMS 20:10 Inserted saline lock: 20 gauge in left antecubital area, using aseptic technique. ll1 20:18 Notified ED physician of a critical lab result(s). HGB of 7.5 Dr Arnold notified. bb 20:38 Faxed blood order form to lab. ar5 21:07 Notified ED physician of a critical lab result(s). Trop 0.65. wh 21:09 Tony Dempsey is Hospitalizing Provider. tw4 22:53 Inserted MIDLINE, RIGHT UPPER ARM, G20 X 10CM POWERGLIDE, GOOD BLOOD RETURN, FLUSHES rv EASILY. 04/27 00:10 No provider procedures requiring assistance completed. Patient admitted, IV remains in jb4 place. Administered Medications: 04/26 20:08 Not Given (Physician Discretion; PT on dyalisis, missed todays treatment due to port jb4 complications): NS 0.9% (30 ml/kg) 30 ml/kg IV at bolus once; Sepsis Protocol 21:50 Drug: vancoMYCIN 1 grams Route: IVPB; Infused Over: 2 hrs; Site: left antecubital; jb4 23:50 Follow up: Response: No adverse reaction; IV Status: Completed infusion; IV Intake: jb4 250ml Point of Care Testing: Blood Glucose: 19:30 Blood Glucose: 91 mg/dL; jb4 Ranges: Intake: 23:50 IV: 250ml; Total: 250ml. jb4 Outcome: 21:10 Decision to Hospitalize by Provider. tw4 04/27 00:10 Admitted to Med/surg accompanied by nurse, via stretcher, room 231, with chart, Report jb4 called to CRESCENCIO Martinez Condition: stable Discharge instructions given to patient, family, Instructed on the need for admit, Demonstrated understanding of instructions. 00:16 Patient left the ED. rv Signatures: Dispatcher [employer] EDMS Barbara Kelly RN RN bb Tucker Palmer RN RN jb4 Mary Ann Abrams Terrence, MD MD 4 Liban Quintana RN RN rv Yazmin Kurtz ar5 Benny Langston, RN RN ll1 Corrections: (The following items were deleted from the chart) 04/26 19:26 19:21 General: Appears in no apparent distress. comfortable, Behavior is calm, jb4 appropriate for age, ll1 19:26 19:21 Pain: Unable to use pain scale. FLACC scale score is 0 out of 10. ll1 jb4 19:26 19:21 Neuro: Level of Consciousness is awake, confused, Oriented to person, Moves all jb4 extremities. Facial droop on left, Pupils are PERRLA, 1 19:26 19:21 Cardiovascular: Patient's skin is warm and dry. ll1 jb4 19:26 19:21 Respiratory: Airway is patent Respiratory effort is even, unlabored, Respiratory jb4 pattern is regular, symmetrical, ll1 19:26 19:21 GI: No signs and/or symptoms were reported involving the gastrointestinal system. jb4 [facility] 19:21 : No signs and/or symptoms were reported regarding the genitourinary system. ll1jb4 19:21 EENT: No signs and/or symptoms were reported regarding the EENT system. [email or web address] 19:21 Derm: Skin is intact, Skin is pink, warm \\T\\ dry. [facility] 19:21 Musculoskeletal: Circulation, motion, and sensation intact. Range of motion: jb4 intact in all extremities, [facility] 19:21 Abuse screen: Denies threats or abuse. [place] [id number] 19:21 Nutritional screening: No deficits noted. [place] [id number] 19:21 Tuberculosis screening: No symptoms or risk factors identified. [place] [id number] 19:21 Fall Risk None identified. [place] [id number] 20:53 20:45 BP 140 / 53; Pulse 70bpm; Resp 16bpm; Pulse Ox 97% RA; jb4 jb 22:05 21:54 Reassessment: Patient appears in no apparent distress at this time. No changes jb4 from previously documented assessment. Patient and/or family updated on plan of care and expected duration. Pain level reassessed. [facility] 22:12 19:20 Home Meds: amlodipine 5 mg tab 1 tab once daily; [facility] 22:12 19:20 Home Meds: docusate sodium 100 mg Oral cap 1 cap once daily; [place] [id number] 22:12 19:20 Home Meds: hydroxyzine HCl 25 mg Oral tab 1 tab 3 times per day; [place] [address] 22:12 19:20 Home Meds: levothyroxine 25 mcg tab 1 tab once daily; [facility] 22:12 19:20 Home Meds: lorazepam 0.5 mg Oral tab 1 tab 3 times per day; per daughter "she is jb4 not taking that anymore and i dont know exactly when she stopped it"; [facility] 22:12 19:20 Home Meds: pentoxifylline 400 mg Oral TbER 1 tab 3 times per day; [email or web address] 23:36 22:56 BP 163 / 46; Pulse 69bpm; Resp 15bpm; Pulse Ox 99% RA; Temp 99.2F Temporal; jb4 jb4 23:36 22:56 BP 167 / 53; Pulse 67bpm; Resp 15bpm; Pulse Ox 98% RA; Temp 99.2F Temporal; jb4 jb4 04/27 01:47 04/26 19:20 General: Appears in no apparent distress. comfortable, Behavior is calm, jb4 cooperative, appropriate for age, jb4 04/27 01:47 04/26 19:30 The patient has not been NPO before screening. The patient is alert, and jb4 able to follow commands. PT unable to verbally respond. The patient failed the bedside swallow screening. The patient will be kept NPO until cleared by Speech Therapy or Physician. Provider notified of bedside swallow screening results: Adalid Arnold MD jb4 04/27 01:50 04/26 20:50 Reassessment: PT is now responding to questions. Is still very tired, and jb4 is not able to answer all questions. Respirations remain even and unlabored, no s/s of pain or distress noted. PT is currently A\\T\\Ox1. jb4
[2020-04-26 21:46] LABS: Urine Amorphous Sediment 4+ /HPF (NONE SEEN); Urine Bacteria <20 /HPF (<20); Urine Culture Reflex Order NOT NEEDED; Urine RBC NONE SEEN /HPF (NONE SEEN)
[2020-04-26] MEDS ORDERED: NA CHLORIDE 0.9% 250 ML ONE (21:49)
[2020-04-26] MEDS ORDERED: VANCOMYCIN 1 GM/VIAL ONE (21:49)
--- NOTE | 2020-04-26 22:05 | P.HP ---
Certification for Inpatient Patient admitted to: Inpatient With expected LOS: >2 Midnights Practitioner: I am a practitioner with admitting privileges, knowledge of patient current condition, hospital course, and medical plan of care. Services: Services provided to patient in accordance with Admission requirements found in Title 42 Section 412.3 of the Code of Federal Regulations Patient History Date of Service: 04/26/20 History of Present Illness: 80-year-old woman with a history of end-stage renal disease on hemodialysis, diabetes mellitus type 2, bed bound and wheelchair bound emergency department because family were concerned of altered mental status. Patient had her dialysis catheter changed 3 days ago because it was not functioning well. She missed dialysis on Tuesday but had dialysis done on and this morning. Family reports patient was febrile with a temperature up to 102.5 at home and was more confused. She could not provide any history in the ED. The son denies any diarrhea or nausea or vomiting. She does make urine. Urinalysis done does not suggest the presence of UTI. Her temperature was 100.1 in the ED. The patient does not meet criteria for sepsis. She has no leukocytosis. Lactic acid is normal. Patient is admitted for further management. Allergies codeine Allergy (Intermediate, Verified 12/19/16 13:31) Itching/Hives/Rash Home Medications: Amlodipine [Norvasc*] 10 mg PO DAILY 12/19/16 Insulin Detemir [Levemir] 25 units SQ BID 12/19/16 Aspirin 81 mg PO DAILY 10/31/19 Atorvastatin Calcium [Lipitor*] 20 mg PO DAILY 10/31/19 Carvedilol [Coreg] 12.5 mg PO Q12H 10/31/19 Docusate Sodium 100 mg PO DAILY 10/31/19 Insulin Aspart [Novolog Flexpen] 5 units SQ DAILY 10/31/19 LORazepam [Ativan*] 0.5 mg PO TID 10/31/19 Levothyroxine Sodium 25 mcg PO DAILY 10/31/19 Pantoprazole [Protonix Tab*] 40 mg PO DAILY 10/31/19 Pentoxifylline 400 mg PO TID 10/31/19 hydrOXYzine HCL [Atarax*] 25 mg PO TID 10/31/19 - Past Medical/Surgical History Diabetic: Yes -: HTN,IDDM,CVA -: kidney failure -: PNE - Family History Mother -: Heart disease - Social History Alcohol use: No CD- Drugs: No Caffeine use: No Review of Systems is unable to be obtained (Due to altered mental status.) Physical Examination - Physical Exam General: Cachectic, Confused, Other HEENT: Mucous membr. moist/pink Neck: Supple, JVD not distended Respiratory: Clear to auscultation bilaterally, Normal air movement Cardiovascular: No edema, Regular rate/rhythm, Normal S1 S2 Capillary refill: <2 Seconds Gastrointestinal: Normal bowel sounds, Soft and benign, No tenderness Musculoskeletal: No swelling, No erythema Integumentary: No rashes, No tenderness/swelling Neurological: Other (Moves all extremities spontaneously.) - Studies Laboratory Data (last 24 hrs) 04/26/20 19:45: PT 12.6 H, INR 1.07, APTT 25.3 04/26/20 19:45: WBC 7.1, Hgb 7.5 L*, Hct 22.2 L, Plt Count 242 04/26/20 19:45: Sodium 141, Potassium 3.1 L, BUN 31 H, Creatinine 2.35 H, Glucose 93, Total Bilirubin 0.3, AST 10 L, ALT < 6 L, Alkaline Phosphatase 56, Amylase 70, Lipase 83 Assessment and Plan - Problems (Diagnosis) (1) Metabolic encephalopathy Current Visit: Yes Status: Acute (2) Fever Current Visit: Yes Status: Acute (3) ESRD (end stage renal disease) on dialysis Current Visit: No Status: Acute (4) Hypertension Current Visit: No Status: Acute (5) Anemia in chronic kidney disease Current Visit: Yes Status: Acute - Plan Admit to the medical floor. Start IV vancomycin and cefepime. Follow blood cultures. Nephrology consult Continue home antihypertensives. Continue other home medications. Monitor CBC. Transfuse for hemoglobin less than 7 Insulin sliding scale for glucose management. - Advance Directives Does patient have a Living Will: No Does patient have a Durable POA for Healthcare: No
[2020-04-26 22:20] LABS: Urine Blood NEGATIVE (NEG); Urine Glucose NEGATIVE (NEG); Urine Protein 3+ (NEG)
[2020-04-26] MEDS ORDERED: NA CHLORIDE 0.9% 100 ML IV ONE (22:38)
[2020-04-26] MEDS ORDERED: ONDANSETRON 4 MG/2 ML VIAL IV PRN (23:44)
[2020-04-27] MEDS: HEPARIN 5000 UNIT/ML 1 ML VIAL SQ SCH ×3 (01:00→17:00)
[2020-04-27] MEDS ORDERED: INFLUENZA VACCINE (for 3y+) 0.5 ML DOSE IMVAC ONE (06:00)
[2020-04-27 06:17] LABS: Absolute Lymphocytes (CBC) 0.5 K/uL (0.7-4.9); Basophils % 0.5 % (0-1.3); Hematocrit 27.1 % (36.0-45.0); Lymphocytes % 5.6 % (15.3-44.8); MPV 8.7 fL (7.6-11.3)
[2020-04-27 06:26] LABS: Phosphorus 2.5 mg/dL (2.5-4.9); Potassium 3.4 mmol/L (3.5-5.1)
[2020-04-27] MEDS: INSULIN -REGULAR HUMAN 50 UNIT/0.5 ML ML SQ SCH ×4 (07:30→21:00)
[2020-04-27 08:38] LABS: Blood Morphology Comment NOT SEEN (NOT SEEN); Platelet Estimate ADEQ
--- NOTE | 2020-04-27 08:50 | P.PN ---
Subjective Date of Service: 04/27/20 Chief Complaint: AMS Subjective: Improving (Slight improvement. Patient is now AAOx2. Unable to correctly name date and year. She is still have brief moments of confusion. Otherwise, improved. Able to identify son at bedside.) Physical Examination - Vital Signs Temperature: 97.6 F Blood Pressure: 160/60 Pulse: 68 Respirations: 18 Pulse Ox (%): 97 - Physical Exam General: Cooperative, Cachectic, Mild distress, Confused HEENT: Atraumatic, Normocephalic, EOMI Neck: Supple Respiratory: Clear to auscultation bilaterally, Normal air movement, Other (RIGHT sided tunneled hemodialysis catheter) Cardiovascular: No edema, Normal pulses, Regular rate/rhythm, Normal S1 S2 Musculoskeletal: No clubbing, No swelling, No contractures, No erythema, No tenderness, No warmth Integumentary: No rashes, No breakdown, No significant lesion, No tenderness/swelling, No erythema, No warmth, No cyanosis Neurological: Normal speech, Abnormal affect - Studies Laboratory Data (last 24 hrs) 04/26/20 19:45: PT 12.6 H, INR 1.07, APTT 25.3 04/26/20 19:45: WBC 7.1, Hgb 7.5 L*, Hct 22.2 L, Plt Count 242 04/26/20 19:45: Sodium 141, Potassium 3.1 L, BUN 31 H, Creatinine 2.35 H, Glucose 93, Total Bilirubin 0.3, AST 10 L, ALT < 6 L, Alkaline Phosphatase 56, Amylase 70, Lipase 83 Assessment & Plan Physician Review Additional Text: Assessment Patient is a 80 year old female with known PMH of HTN, ESRD on HD TTS but missed Tuesday's session due to access malfunction. She was able to resume her regular HD this session after access repair and was dialyzed on and tuesday, which was yesterday. As per family member, she was very hypertensive during her last HD session yesterday and her SBP was in the 200's. She returned home confused. According to son, she also had a fever of [address] head was without acute intracranial abnormalities. During my encounter, patient had no localizing signs, no pain. Metabolic encephalopathy Possible hypertensive emergency ESRD Hypertension PLAN: Patient's mental status could be infectious in etiology or a result of accelerated hypertension Obtain blood cultures from HD access given recent manipulation/procedure. I was told only HD RN can do this. Will defer to Nephrology Follow up blood cultures Continue vancomycin Optimize BP. I resumed home anti-HTN agents: hydralazine, coreg, ... MRI brain tomorrow If above work up fail to explain her presentation, I will consider a lumbar puncture.
[2020-04-27] MEDS ORDERED: carvediloL 12.5 MG TAB PO SCH (09:00)
[2020-04-27] MEDS: HYDRALAZINE HCL 25 MG TABLET PO SCH ×2 (10:30→21:30)
[2020-04-27] MEDS: SEVELAMER CARBONATE 800 MG TABLET PO SCH ×3 (10:30→21:30)
[2020-04-27] MEDS: PENTOXIFYLLINE ER 400 MG TAB PO SCH ×2 (10:30→21:30)
[2020-04-27] MEDS: ASPIRIN 81 MG CHEWABLE TABLET PO SCH (10:30)
[2020-04-27] MEDS: LEVOTHYROXINE SOD 0.05 MG TABLET PO SCH (10:30)
[2020-04-27] MEDS: PANTOPRAZOLE 40MG TABLET PO SCH (10:30)
[2020-04-27] MEDS: carvediloL 25 MG TAB PO SCH ×2 (11:36→17:06)
[2020-04-27] MEDS: HYDRALAZINE HCL 20 MG/ML VIAL IV PRN (12:13)
--- NOTE | 2020-04-27 14:57 | CON ---
Date of Consultation: 04/27/2020 Reason For Consult: Acute ESRD, on dialysis. History Of Present Illness: Ms. Garcia is a 80-year-old female with past medical history significa nt for ESRD, on dialysis on Tuesday, , and Tuesday dialysis; presented to [facility] because of altered mental status. The patient had her dialysis catheter changed 3 d ays ago because of malfunction and she missed dialysis on Tuesday; however, she did go back to dialys is on and Tuesday. After Tuesday dialysis, she was found to have some fever and altered m ental status and has been brought to the hospital for workup for sepsis. So far, she seems to be doi ng okay and her altered mental status seems to have resolved, and she seems to be doing much better. Past Medical History: Significant for: 1.History of ESRD, on dialysis. 2.Hypertension. 3.Peripheral vascular disease. 4.Insulin-dependent diabetes. Family History: Significant for mother with history of heart disease. Social History: No history of alcohol or drug use reported. Lives with her family at home. Review of Systems: Negative for any shortness of breath. Denies any abdominal pain. Denies any nausea, vomiting. Kj es any discharge from the dialysis catheter. All other review of systems are negative. Physical Examination: Vital Signs: Have been reviewed and are stable. She seems to be afebrile at this time. General: She appears in no acute distress. Lungs: Clear to auscultation. Abdomen: Soft and nontender. Extremities: Without any evidence of edema. Right-sided tunneled dialysis catheter in place. Laboratory Data: Showing hemoglobin of 9.1 improving from 7.9, hematocrit 27.1, WBC count of 9.6, an d platelet count was normal. BMP results are showing mild hypokalemia with potassium of 3.4 and othe r labs consistent with ESRD, and troponin was elevated to 0.75. Procalcitonin was elevated to 3.98. So far, her blood cultures are pending at this time. Medications: Current medications have been reviewed in detail as well. Impression: 1.End-stage renal disease, on dialysis. 2.Altered mental status, etiology unclear. 3.Anemia secondary to renal failure. 4.Hypertension, currently stable. 5.Possible sepsis, but so far cultures are negative. Plan: The patient's altered mental status is presumed to be from possibly from accelerated hypertens ion. Her blood pressure seems to be doing okay at this time. Home medications have been resumed and her mental status seems to be doing okay as well. Blood cultures are still pending at this time. T here is no evidence of leukocytosis or any evidence that the dialysis catheter could be infected. We will continue to monitor her for 1 more day. She does not need any dialysis at this time. We will continue all current blood pressure medications and we will follow up tomorrow for dialysis needs as needed. VV/MODL Voice ID: [id number] Report ID: [id number]
[2020-04-27] MEDS ORDERED: VANCOMYCIN 500 MG in NA CHLORIDE 0.9% 100 ML IVPB SCH (17:00)
[2020-04-27] MEDS: ACETAMINOPHEN 500 MG TAB PO PRN (18:26)
[2020-04-27] MEDS: HOME MED 1 EA UNK (Latanoprost/Pf [Latanoprost 0.005% Eye Drop] 1 DROP) LEFT EYE SCH (21:00)
[2020-04-27] MEDS: ATORVASTATIN 20 MG TAB PO SCH (21:30)
[2020-04-28] MEDS: HEPARIN 5000 UNIT/ML 1 ML VIAL SQ SCH ×3 (00:10→17:00)
[2020-04-28] MEDS: carvediloL 25 MG TAB PO SCH ×2 (05:49→17:17)
[2020-04-28] MEDS: INSULIN -REGULAR HUMAN 50 UNIT/0.5 ML ML SQ SCH ×4 (07:30→21:00)
[2020-04-28] MEDS: HYDRALAZINE HCL 25 MG TABLET PO SCH ×2 (08:59→21:19)
[2020-04-28] MEDS: ASPIRIN 81 MG CHEWABLE TABLET PO SCH (08:59)
[2020-04-28] MEDS: PANTOPRAZOLE 40MG TABLET PO SCH (09:00)
[2020-04-28] MEDS: SEVELAMER CARBONATE 800 MG TABLET PO SCH ×3 (09:00→21:19)
[2020-04-28] MEDS: PENTOXIFYLLINE ER 400 MG TAB PO SCH ×2 (09:00→21:19)
[2020-04-28] MEDS: LEVOTHYROXINE SOD 0.05 MG TABLET PO SCH (09:01)
--- NOTE | 2020-04-28 12:32 | P.CNS ---
Chief Complaint: AMS History of Present Illness: Pt is a 80 y/o female with past medical hx of hypertension, ESRD on HD mwf, HLD presents with complaints of fevers. Blood cultures identified with staph aureus. Pt denies any chestpain, nasuea vomiting,or diarrhea. Pt follows with me at [facility] and dialyzes TTHS at second shift. Renal has been consulted for management if hemodialysis needs. Allergies codeine Allergy (Intermediate, Verified 04/27/20 00:35) Itching/Hives/Rash Home Medications: Aspirin 81 mg PO DAILY 10/31/19 Atorvastatin Calcium [Lipitor*] 20 mg PO BEDTIME 10/31/19 Carvedilol [Coreg] 12.5 mg PO BID 10/31/19 Levothyroxine Sodium 50 mcg PO DAILY 10/31/19 Pantoprazole [Protonix Tab*] 40 mg PO DAILY 10/31/19 Pentoxifylline 400 mg PO BID 10/31/19 Hydralazine [Apresoline*] 1 tab PO BID 04/27/20 Latanoprost/Pf [Latanoprost 0.005% Eye Drop] 1 drop LEFT EYE BEDTIME 04/27/20 Sevelamer Carbonate 1 tab PO TID 04/27/20 Insulin Glargine,Hum.rec.anlog [Lantus Solostar] 5 units SQ Q12H 04/28/20 - Past Medical/Surgical History Diabetic: Yes -: HTN,IDDM,CVA -: kidney failure -: PNE -: hx of left lower leg wound-healed -: ESRD -: HLD -: LEFT EYE CATARACT -: HYPOTHYROIDISM -: HD ACCESS RIGHT SUBCLAVIAN -: BROKEN HIP-SON UNABLE TO RECALL WHICH HIP -: HD ACCESS PLACEMENT - Family History Mother Medical History: Heart disease - Social History Smoking Status: Unknown if ever smoked Alcohol use: No CD- Drugs: No Caffeine use: No Place of Residence: Home Review of Systems Unremarkable (ROS is negative except as stated in HPI) Physical Examination Temp Pulse Resp BP Pulse Ox 98.4 F 64 18 179/63 H 96 04/28/20 08:00 04/28/20 08:00 04/28/20 08:00 04/28/20 08:00 04/28/20 08:00 General: Alert, In no apparent distress HEENT: Atraumatic, PERRLA, Mucous membr. moist/pink, EOMI, Sclerae nonicteric Neck: Supple, 2+ carotid pulse no bruit, No LAD, Without JVD or thyroid abnormality Respiratory: Clear to auscultation bilaterally, Normal air movement Cardiovascular: Regular rate/rhythm, Normal S1 S2 Gastrointestinal: Normal bowel sounds, No tenderness Musculoskeletal: No tenderness Integumentary: No rashes Lymphatics: No axilla or inguinal lymphadenopathy Physician Review Additional Text: Problems Fever of unknow origin ESRD on HD has new access line Hypervolemia HtN Anemia Plan No indication for hemodialysis today Will maintain per outpt scheduled Will start on epogen on HD days 1l fluid restriction Iron level. May benefit from IV iron Thank you for this interesting consult. Will continue to follow
--- NOTE | 2020-04-28 14:30 | P.PN ---
Subjective Date of Service: 04/28/20 Chief Complaint: AMS Patient altered mental status has improved. He is currently oriented to place and person. Blood culture is growing Staph aureus in 2 bottles. Physical Examination - Vital Signs Temperature: 98.4 F Blood Pressure: 179/63 Pulse: 64 Respirations: 18 Pulse Ox (%): 96 - Physical Exam General: Oriented x2, Other (Awake) HEENT: Mucous membr. moist/pink, Sclerae nonicteric Neck: Supple, JVD not distended Respiratory: Clear to auscultation bilaterally, Normal air movement Cardiovascular: No edema, Regular rate/rhythm, Normal S1 S2 Gastrointestinal: Normal bowel sounds, Soft and benign, Non-distended, No tenderness Musculoskeletal: No swelling, No erythema Neurological: Normal strength at 5/5 x4 extr, Cranial nerves 3-12 intact Assessment And Plan - Current Problems (Diagnosis) (1) Metabolic encephalopathy Current Visit: Yes Status: Acute (2) Fever Current Visit: Yes Status: Acute (3) ESRD (end stage renal disease) on dialysis Current Visit: No Status: Acute (4) Hypertension Current Visit: No Status: Acute (5) Anemia in chronic kidney disease Current Visit: Yes Status: Acute (6) Staphylococcus aureus bacteremia Current Visit: Yes Status: Acute - Plan Unknown source of bacteremia. Patient had her dialysis catheter changed only 5 days ago. Continue IV vancomycin. Repeat blood cultures with samples from the dialysis catheter and peripheral vein. The patient will need prolonged antibiotic therapy as outpatient. Infectious disease consult Hemodialysis per nephrology. Status post 2 units PRBC transfusion. Continue to monitor CBC. Continue home antihypertensives. Insulin sliding scale for glucose management. MRI of the brain cancelled given improvement in mental status and the high risk for gadolinium induced fibrosis.
[2020-04-28] MEDS: HOME MED 1 EA UNK (Latanoprost/Pf [Latanoprost 0.005% Eye Drop] 1 DROP) LEFT EYE SCH (21:00)
[2020-04-28] MEDS: ATORVASTATIN 20 MG TAB PO SCH (21:19)
[2020-04-28] MEDS ORDERED: VANCOMYCIN 750 MG in NA CHLORIDE 0.9% 150 ML IVPB SCH (22:00)
[2020-04-29] MEDS: HEPARIN 5000 UNIT/ML 1 ML VIAL SQ SCH ×3 (02:12→17:05)
[2020-04-29 04:05] LABS: Absolute Lymphocytes (CBC) 0.6 K/uL (0.7-4.9); Basophils % 0.5 % (0-1.3); Hematocrit 24.6 % (36.0-45.0); Lymphocytes % 9.5 % (15.3-44.8); MPV 8.8 fL (7.6-11.3); RBC Red Blood Cell Count 2.83 M/uL (3.86-4.86)
[2020-04-29 04:25] LABS: Magnesium 2.1 mg/dL (1.8-2.4); Potassium 3.1 mmol/L (3.5-5.1)
[2020-04-29] MEDS: carvediloL 25 MG TAB PO SCH ×2 (05:25→17:05)
[2020-04-29] MEDS: INSULIN -REGULAR HUMAN 50 UNIT/0.5 ML ML SQ SCH ×4 (07:30→20:17)
[2020-04-29] MEDS: LEVOTHYROXINE SOD 0.05 MG TABLET PO SCH (08:28)
[2020-04-29] MEDS: ASPIRIN 81 MG CHEWABLE TABLET PO SCH (08:28)
[2020-04-29] MEDS: SEVELAMER CARBONATE 800 MG TABLET PO SCH ×3 (08:28→17:05)
[2020-04-29] MEDS: PENTOXIFYLLINE ER 400 MG TAB PO SCH ×2 (08:28→20:16)
[2020-04-29] MEDS: PANTOPRAZOLE 40MG TABLET PO SCH (08:28)
[2020-04-29] MEDS: HYDRALAZINE HCL 25 MG TABLET PO SCH ×2 (08:29→20:16)
--- NOTE | 2020-04-29 11:39 | P.PN ---
Subjective Date of Service: 04/29/20 Chief Complaint: AMS Subjective: Improving (feeling better, denies chills, didn't sleep well overnight. denies pain) Review of Systems 10-point ROS is otherwise unremarkable Physical Examination - Vital Signs Temperature: 98.0 F Blood Pressure: 186/81 Pulse: 59 Respirations: 18 Pulse Ox (%): 97 - Physical Exam General: Alert, In no apparent distress, Oriented x2 HEENT: Sclerae nonicteric Respiratory: Clear to auscultation bilaterally Cardiovascular: Regular rate/rhythm Gastrointestinal: Soft and benign, Non-distended, No tenderness Musculoskeletal: No tenderness Neurological: Normal speech, Normal affect - Studies Microbiology Data (last 24 hrs): 04/26/20 20:00 Blood - Blood Aerobic Blood Culture - Final Staph Aureus 04/26/20 20:00 Blood - Blood Anaerobic Blood Culture - Final Staph Aureus 04/26/20 19:45 Blood - Blood Aerobic Blood Culture - Final Staph Aureus 04/26/20 19:45 Blood - Blood Anaerobic Blood Culture - Final Staph Aureus Assessment & Plan Physician Review Additional Text: Patient is a 80 year old female with known PMH of HTN, ESRD on HD TTS but missed Tuesday's session due to access malfunction. She was able to resume her regular HD this session after access repair and was dialyzed on and tuesday, which was yesterday. As per family member, she was very hypertensive during her last HD session on day prior to admission and her SBP was in the 200's. She returned home confused. According to son, she also had a fever of [address] head was without acute intracranial abnormalities. Metabolic encephalopathy staphylococcus aureus bacteremia Possible hypertensive emergency ESRD on dialysis Hypertension Anemia of chronic disease improving, family and patient feel mentation has improved Cx: staph aureus in blood cultures obtained from HD Access / redrawn on 04/28 - pending Continue vancomycin ID consulted - will need prolonged antibiotic therapy as outpatient TTE pending - eval for vegetation unclear source, dialysis catheter was changed ~5-6 days ago due to non-functi oing s/p 2 u PRBC transfusion HD per nephrology Time Spent Managing Pts Care (In Minutes): 35
--- NOTE | 2020-04-29 12:08 | EKG ---
Test Date: 2020-04-26 Test Time: 19:50:32 Building Components Designer: TLT MEASUREMENT RESULTS: Intervals: Rate: 77 LA: 140 QRSD: 94 QT: 338 QTc: 382 [place]: P: 39 LA: 140 QRS: 17 T: 153 INTERPRETIVE STATEMENTS: Normal sinus rhythm Anterior infarct, age undetermined ST & T wave abnormality, consider lateral ischemia Abnormal ECG Compared to ECG 10/31/2019 23:52:00 Myocardial infarct finding now present ST (T wave) deviation still present Possible ischemia still present Electronically Signed On 04-29-20 12:03:37 KIER BOILER by Derek Spring
--- NOTE | 2020-04-29 12:41 | ECHO ---
HEIGHT: 4 ft 8 in WEIGHT: 87 lb 9.6 oz DATE OF STUDY: 04/29/[address]: alexus pena 2-DIMENSIONAL: YES M.MODE: YES DOPPLER: YES COLOR FLOW: YES TDS: YES PORTABLE: DEFINITY: BUBBLE STUDY: DIAGNOSIS: STAPH CARDIAC HISTORY: CATHERIZATION: SURGERY: PROSTHETIC VALVE: PACEMAKER: MEASUREMENTS (cm) DIASTOLIC (NORMALS) SYSTOLIC (NORMALS) IVSd 0.8 (0.6-1.2) LA Diam 3.3 (1.9-4.0) LVEF 65% LVIDd 3.8 (3.5-5.7) LVIDs 2.4 (2.0-3.5) %FS 35% LVPWd 0.9 (0.6-1.2) Ao Diam 2.3 (2.0-3.7) 2 DIMENSIONAL ASSESSMENT: RIGHT ATRIUM: NORMAL LEFT ATRIUM: NORMAL RIGHT VENTRICLE: NORMAL LEFT VENTRICLE: NORMAL TRICUSPID VALVE: NORMAL MITRAL VALVE: MITRAL ANNULAR CALCIFICATION PULMONIC VALVE: NORMAL AORTIC VALVE: NORMAL PERICARDIAL EFFUSION: NONE AORTIC ROOT: NORMAL LEFT VENTRICULAR WALL MOTION: NORMAL DOPPLER/COLOR FLOW: MILD MITRAL AND TRICUSPID REGURGITATION. NORMAL RIGHT VENTRICULAR SYSTOLIC PRESSURE. COMMENTS: MILD MITRAL AND TRICUSPID REGURGITATION. MITRAL ANNULAR CALCIFICATION. NO VEGETATION NOTED. NORMAL LEFT VENTRICULAR SIZE AND FUNCTION. TECHNOLOGIST: ISIDRO NEVILLE
[2020-04-29] MEDS: ATORVASTATIN 20 MG TAB PO SCH (20:16)
[2020-04-29] MEDS: HOME MED 1 EA UNK (Latanoprost/Pf [Latanoprost 0.005% Eye Drop] 1 DROP) LEFT EYE SCH (20:17)
[2020-04-29] MEDS ORDERED: VANCOMYCIN 500 MG/VIAL ONE (21:43)
[2020-04-29] MEDS ORDERED: NA CHLORIDE 0.9% 100 ML ONE (22:14)
[2020-04-29] MEDS ORDERED: NA CHLORIDE 0.9% 250 ML ONE (22:14)
[2020-04-29] MEDS: HYDRALAZINE HCL 20 MG/ML VIAL IV PRN (23:21)
[2020-04-30] MEDS ORDERED: POTASSIUM CL SA 10 MEQ TAB PO ONE (01:06)
[2020-04-30] MEDS: HEPARIN 5000 UNIT/ML 1 ML VIAL SQ SCH ×3 (01:22→17:00)
[2020-04-30] MEDS: carvediloL 25 MG TAB PO SCH ×2 (05:21→18:00)
[2020-04-30 05:33] LABS: Absolute Lymphocytes (CBC) 0.7 K/uL (0.7-4.9); Hematocrit 27.2 % (36.0-45.0); Lymphocytes % 12.4 % (15.3-44.8); MPV 8.2 fL (7.6-11.3); RBC Red Blood Cell Count 3.11 M/uL (3.86-4.86)
[2020-04-30 05:45] LABS: Phosphorus 1.1 mg/dL (2.5-4.9); Potassium 3.2 mmol/L (3.5-5.1)
[2020-04-30] MEDS: INSULIN -REGULAR HUMAN 50 UNIT/0.5 ML ML SQ SCH ×4 (07:30→21:00)
[2020-04-30] MEDS: LEVOTHYROXINE SOD 0.05 MG TABLET PO SCH (08:02)
[2020-04-30] MEDS: PANTOPRAZOLE 40MG TABLET PO SCH (08:02)
[2020-04-30] MEDS: HYDRALAZINE HCL 25 MG TABLET PO SCH ×2 (08:02→21:15)
[2020-04-30] MEDS: PENTOXIFYLLINE ER 400 MG TAB PO SCH ×3 (08:02→21:15)
[2020-04-30] MEDS: SEVELAMER CARBONATE 800 MG TABLET PO SCH ×3 (08:02→18:00)
[2020-04-30] MEDS: ASPIRIN 81 MG CHEWABLE TABLET PO SCH (08:03)
--- NOTE | 2020-04-30 11:26 | CON ---
History Of Present Illness: This is a 80-year-old female with significant history of end-stage renal disease and diabetes mellitus, being bed-bound after she had hip fracture beginning of this year. Brian fuentes was brought in by family with fever of 102.5, in the ER patient had 100.1 fever. Patient had her dialysis catheter changed 3 days prior to coming in. Denies any cough just chest pain, abdominal pain, constipation, diarrhea. Patient denies any discomfort. According to the family patient is no t eating much for last few days. Currently getting vancomycin. The patient's blood culture grew Sta ph aureus, not MRSA. Past Medical History: End-stage renal disease, on hemodialysis, diabetes mellitus, muscle wasting, h ip fracture, hypothyroidism, hypertension. Medications: Include Norvasc, insulin, aspirin, atorvastatin, Coreg, docusate, insulin, Ativan, levo thyroxine, pantoprazole, pentoxifylline and hydroxyzine. Allergies: NO KNOWN DRUG ALLERGIES. Social History: Nonsmoker, nondrinker. Family History: Diabetes mellitus, heart disease. Review of Systems: A 10-point review was performed. Physical Examination: General: This is a 80-year-old female, lying in bed, not in any acute cardiopulmonary distress. Vital signs: Temperature 98.2, pulse 65, respirations 16, blood pressure 133/62. HEENT: Unremarkabl e. Neck: Supple. Lungs: Basal crackles. Heart: S1, S2. Regular. Abdomen: Soft, nontender. Bowel sounds present. Extremity: No edema, muscle wasting noted. Laboratory Data: Shows WBC 7.1, 5.4, hemoglobin 9.2, platelets are 248. Chemistry shows sodium 139, potassium 3.2, chloride 105, bicarb 29, BUN 23, creatinine 2.6, glucose is 90. Micro data shows Sta ph aureus on blood cultures done on 04/26 and 04/28. Blood cultures are also growing gram-positive c occi. Sensitivities specificity pending. Chest x-ray is negative. Assessment And Plan: This is a 80-year-old female coming in with fevers, sepsis, and altered mental status. Blood cultures growing Staph aureus with persistent bacteremia as recent blood cultures done on 04/28 are again positive. We will repeat another set of blood cultures today as patient is alrea dy on vancomycin and starting to improve. We will add cefazolin if necessary. Also had probiotic. Her blood culture came back positive again. On Tuesday we will recommend to remove the dialysis cathet er and give the patient 2 days break while on antibiotic and put a new catheter on Tuesday. We will f ollow the patient closely. Thank you Dr. Dempsey and Dr. Leon for consult. NF/MODL Voice ID: [id number] Report ID: [id number]
[2020-04-30] MEDS: HYDRALAZINE HCL 20 MG/ML VIAL IV PRN (12:11)
--- NOTE | 2020-04-30 14:06 | P.PN ---
Subjective Date of Service: 04/30/20 Chief Complaint: AMS Subjective: Improving (feeling well, slept better last night, working with physical therapy, more alert today Son at bedside) Review of Systems 10-point ROS is otherwise unremarkable Physical Examination - Vital Signs Temperature: 98.4 F Blood Pressure: 114/42 Pulse: 66 Respirations: 18 Pulse Ox (%): 96 - Physical Exam General: Alert, In no apparent distress, Oriented x2 HEENT: Sclerae nonicteric Respiratory: Clear to auscultation bilaterally Cardiovascular: No edema, Regular rate/rhythm Gastrointestinal: Soft and benign, Non-distended, No tenderness Musculoskeletal: No tenderness Integumentary: No rashes, No significant lesion Neurological: Normal speech, Normal affect - Studies Microbiology Data (last 24 hrs): 04/26/20 20:00 Blood - Blood Aerobic Blood Culture - Final Staph Aureus 04/26/20 20:00 Blood - Blood Anaerobic Blood Culture - Final Staph Aureus 04/26/20 19:45 Blood - Blood Aerobic Blood Culture - Final Staph Aureus 04/26/20 19:45 Blood - Blood Anaerobic Blood Culture - Final Staph Aureus Assessment & Plan Physician Review Additional Text: Patient is a 80 year old female with known PMH of HTN, ESRD on HD TTS but missed Tuesday's session due to access malfunction. She was able to resume her regular HD this session after access repair and was dialyzed on and tuesday, which was yesterday. As per family member, she was very hypertensive during her last HD session on day prior to admission and her SBP was in the 200's. She returned home confused. According to son, she also had a fever of [address] head was without acute intracranial abnormalities. Metabolic encephalopathy staphylococcus aureus bacteremia ESRD on dialysis Hypertension Anemia of chronic disease improving, family and patient feel mentation continues to improve decreased appetite reported by son this morning, encouraged patient to eat Cx: MSSA bacteremia - ID consulted, will add ancef 1g q12hr to vanc. repeat blood cx today, may need cath removed if positive cultures obtained from HD Access / redrawn on 04/28 - GPC+ TTE without vegetation unclear source, dialysis catheter was changed ~5-6 days ago due to non- functioning - likely source s/p 2 u PRBC transfusion on admission HD per nephrology Time Spent Managing Pts Care (In Minutes): 35
[2020-04-30] MEDS ORDERED: CEFAZOLIN/NS 1gm 1 GM/50 ML BAG IVPB SCH (17:00)
[2020-04-30] MEDS: ATORVASTATIN 20 MG TAB PO SCH ×2 (21:00→21:15)
[2020-04-30] MEDS: HOME MED 1 EA UNK (Latanoprost/Pf [Latanoprost 0.005% Eye Drop] 1 DROP) LEFT EYE SCH (21:00)
[2020-04-30] MEDS: CEFAZOLIN/SWI 1gm 1 GM/10 ML SYR IVP SCH (21:15)
[2020-04-30] MEDS ORDERED: VANCOMYCIN/NS 1 gm 1 GM/250 ML BAG IVPB SCH (22:00)
[2020-05-01] MEDS: HYDRALAZINE HCL 20 MG/ML VIAL IV PRN (00:43)
[2020-05-01] MEDS: HEPARIN 5000 UNIT/ML 1 ML VIAL SQ SCH ×3 (00:44→16:40)
[2020-05-01 05:59] LABS: Absolute Lymphocytes (CBC) 0.9 K/uL (0.7-4.9); Basophils % 1.2 % (0-1.3); Lymphocytes % 19.3 % (15.3-44.8); MPV 8.2 fL (7.6-11.3); RBC Red Blood Cell Count 2.97 M/uL (3.86-4.86)
[2020-05-01 06:16] LABS: Potassium 3.3 mmol/L (3.5-5.1)
[2020-05-01 06:17] LABS: Magnesium 2.1 mg/dL (1.8-2.4)
--- NOTE | 2020-05-01 07:13 | P.PN ---
Subjective Date of Service: 05/01/20 Chief Complaint: AMS Pt seen and examined on HD. No chills, fevers, nausea, vomiting. Review of Systems General: Unremarkable Eyes: Unremarkable ENT: Unremarkable Respiratory: Unremarkable Cardiovascular: Unremarkable Gastrointestinal: Unremarkable Genitourinary: Unremarkable Physical Examination - Vital Signs Temperature: 97.1 F Blood Pressure: 160/72 Pulse: 64 Respirations: 16 Pulse Ox (%): 97 - Physical Exam General: Alert, In no apparent distress HEENT: Atraumatic, PERRLA, EOMI Neck: Supple, JVD not distended Respiratory: Clear to auscultation bilaterally, Normal air movement Gastrointestinal: Normal bowel sounds, No tenderness Musculoskeletal: No tenderness Integumentary: No rashes Lymphatics: No axilla or inguinal lymphadenopathy Assessment & Plan Physician Review Additional Text: Problems Fever of unknow origin; possibly 2/2 dialysis catheter ESRD on HD has new access line Hypervolemia HtN Anemia Plan hemodialysis today Will maintain HD schedule per outpt scheduled Continue epogen on HD days 1l fluid restriction Will continue to follow
[2020-05-01] MEDS: INSULIN -REGULAR HUMAN 50 UNIT/0.5 ML ML SQ SCH ×4 (07:30→21:00)
[2020-05-01] MEDS: carvediloL 25 MG TAB PO SCH ×2 (07:42→17:57)
[2020-05-01] MEDS: PENTOXIFYLLINE ER 400 MG TAB PO SCH ×2 (09:26→21:55)
[2020-05-01] MEDS: SEVELAMER CARBONATE 800 MG TABLET PO SCH ×3 (09:26→16:40)
[2020-05-01] MEDS: ASPIRIN 81 MG CHEWABLE TABLET PO SCH (09:27)
[2020-05-01] MEDS: LEVOTHYROXINE SOD 0.05 MG TABLET PO SCH (09:27)
[2020-05-01] MEDS: PANTOPRAZOLE 40MG TABLET PO SCH (09:27)
[2020-05-01] MEDS: LACTOBACILLUS/ACIDOPHILUS TAB PO SCH (09:27)
[2020-05-01] MEDS: HYDRALAZINE HCL 25 MG TABLET PO SCH ×2 (09:28→21:00)
[2020-05-01] MEDS: CEFAZOLIN/SWI 1gm 1 GM/10 ML SYR IVP SCH (09:33)
--- NOTE | 2020-05-01 19:03 | P.PN ---
Subjective Date of Service: 05/01/20 Chief Complaint: AMS Subjective: No new changes (feeling well, without complaints, appetite improving, eating half to most of plates now) Review of Systems 10-point ROS is otherwise unremarkable Physical Examination - Vital Signs Temperature: 98.0 F Blood Pressure: 147/66 Pulse: 72 Respirations: 16 Pulse Ox (%): 98 - Physical Exam General: Alert, In no apparent distress, Oriented x3 HEENT: Sclerae nonicteric Respiratory: Clear to auscultation bilaterally Cardiovascular: No edema, Regular rate/rhythm Gastrointestinal: Soft and benign, Non-distended, No tenderness Musculoskeletal: No tenderness Integumentary: No rashes Neurological: Normal speech, Normal affect Assessment & Plan Physician Review Additional Text: Patient is a 80 year old female with known PMH of HTN, ESRD on HD TTS but missed Tuesday's session due to access malfunction. She was able to resume her regular HD this session after access repair and was dialyzed on and tuesday, which was yesterday. As per family member, she was very hypertensive during her last HD session on day prior to admission and her SBP was in the 200's. She returned home confused. According to son, she also had a fever of [address] head was without acute intracranial abnormalities. Metabolic encephalopathy staphylococcus aureus bacteremia ESRD on dialysis () Hypertension Anemia of chronic disease improving, but continues with Staph bacteremia ID consulted, added and staff to the vancomycin on 04/30. Repeat blood culture from 04/30 remains positive Discuss with ID and nephrology, will remove tunneled catheter tomorrow, will continue with antibiotic regimen, repeat culture on Tuesday, if negative can undergo insertion of new dialysis catheter on Tuesday TTE without vegetation unclear source, but given that dialysis catheter was changed ~5-6 days ago due to non-functioning - likely source s/p 2 u PRBC transfusion on admission HD per nephrology discussed with ID - patient would likely benefit from continued management at LTAC Dispo: SW consulted for LTAC placement, patient will require at least another 4- 5 days of hospitalization, until cultures are negative Time Spent Managing Pts Care (In Minutes): 35
--- NOTE | 2020-05-01 20:04 | PN ---
Subjective: The patient is lying in bed. Denies any headache, nausea, vomiting, chest pain, abdomin al pain, constipation, or diarrhea. The patient's blood cultures are still coming back positive for Staph aureus, MSSA, not resistant to vancomycin, not resistant to methicillin. The patient is curren tly getting vancomycin and cefazolin. Laboratory Data: Shows the patient has WBC of 4.6, hemoglobin of 8.7, platelets are 259. Assessment/plan: 1.Persistent bacteremia. We will recommend to after dialysis tomorrow take out the Efrain catheter and continue the antibiotic via peripheral line, especially cefazolin and repeat blood cultures on S evening and had a new catheter in place on Tuesday morning. Also recommend to transfer the kasey ent to [facility] for transesophageal echocardiogram and continue antibiotic and management f or persistent bacteremia. 2.Anemia of chronic disease. Continue supportive care. 3.Protein-calorie malnutrition, moderate. 4.We will follow the patient closely. NF/MODL Voice ID: [id number] Report ID: [id number]
[2020-05-01] MEDS: HOME MED 1 EA UNK (Latanoprost/Pf [Latanoprost 0.005% Eye Drop] 1 DROP) LEFT EYE SCH (21:00)
[2020-05-01] MEDS: ATORVASTATIN 20 MG TAB PO SCH (21:55)
[2020-05-02] MEDS: HEPARIN 5000 UNIT/ML 1 ML VIAL SQ SCH ×3 (01:00→16:39)
[2020-05-02] MEDS: carvediloL 25 MG TAB PO SCH ×2 (05:16→17:16)
[2020-05-02 06:14] LABS: Basophils % 1.1 % (0-1.3); Hematocrit 27.7 % (36.0-45.0); Lymphocytes % 19.8 % (15.3-44.8); MPV 8.4 fL (7.6-11.3); RBC Red Blood Cell Count 3.16 M/uL (3.86-4.86)
[2020-05-02 06:18] LABS: Magnesium 1.9 mg/dL (1.8-2.4); Potassium 3.9 mmol/L (3.5-5.1)
[2020-05-02] MEDS: INSULIN -REGULAR HUMAN 50 UNIT/0.5 ML ML SQ SCH ×4 (07:30→21:00)
[2020-05-02] MEDS: SEVELAMER CARBONATE 800 MG TABLET PO SCH ×3 (08:00→17:16)
[2020-05-02] MEDS: CEFAZOLIN/SWI 1gm 1 GM/10 ML SYR IVP SCH (08:39)
[2020-05-02] MEDS: PANTOPRAZOLE 40MG TABLET PO SCH (08:39)
[2020-05-02] MEDS: ASPIRIN 81 MG CHEWABLE TABLET PO SCH (08:39)
[2020-05-02] MEDS: LACTOBACILLUS/ACIDOPHILUS TAB PO SCH (08:39)
[2020-05-02] MEDS: PENTOXIFYLLINE ER 400 MG TAB PO SCH ×2 (08:40→22:15)
[2020-05-02] MEDS: LEVOTHYROXINE SOD 0.05 MG TABLET PO SCH (08:40)
[2020-05-02] MEDS: HYDRALAZINE HCL 25 MG TABLET PO SCH ×2 (08:44→22:24)
--- NOTE | 2020-05-02 09:32 | CON ---
Date of Consultation: 05/01/2020 Brief History Of Present Illness: The patient is a 80-year-old female with end-stage renal disease, on hemodialysis Tuesday, , Tuesday, who presents with concerns of altered mental st atus via wheelchair. She had her dialysis catheter changed 3 days due to malfunction. She missed he r dialysis on Tuesday, but was dialyzed yesterday, which would be and has concern for bacter emia. Dr. Arshad was consulted to see the patient who had a persistent bacteremia despite treatments and as such, there was concern that this catheter perhaps could either be the nidus of infection or could be secondarily infected. As such, I was consulted to remove this catheter, give her a line hol iday and replace the catheter on Tuesday. Past Medical History: Significant for hypertension, diabetes, CVA, end-stage renal disease, on hemod ialysis . Allergies: TO CODEINE. Home Medications: Include Norvasc, Levemir, aspirin, Lipitor, Coreg, Colace, NovoLog, Ativan, levoth yroxine, Protonix, pentoxifylline, and Atarax. Social History: She denies smoking, alcohol, or recreational drug use. Review of Systems: Ten-point review of systems other than HPI, denies. Physical Examination: General: At the time of my examination; she is awake, alert, and oriented. She appears thin and fra il. Psychiatric: She answers questions appropriately. HEENT: She is normocephalic. Sclerae anicteric. Mucous membranes are moist. Oropharynx is clear. Neck: Supple without JVD. Chest: Right-sided hemodialysis catheter placed. There was no obvious pus or infection emanating fr om the catheter obviously; however, the remainder of her chest exam is essentially normal. Skin: Warm and dry. Laboratory Data: Revealed a white blood cell count of 4.6, hemoglobin is 8.7, hematocrit 26.0, plate let count was 259. Her sodium is 138, potassium 3.3, chloride 104, carbon dioxide 29, BUN 36, creati nine 3.6, glucose is 92. Her calcium was 7.7, phosphorus 1.7, magnesium was 2.1. She had cultures p erformed, which showed Staph aureus and multiple blood cultures. She additionally had a chest x-ray performed on 04/26 on admission. Chest x-ray officially read as no acute abnormalities displayed. Assessment And Plan: This is a 80-year-old female, who presents with possible line infection as this is possible source for her continued bacteremia. 1.Continue medical management. 2.I will remove her tunneled hemodialysis catheter on Tuesday and give her a line holiday over the we ekend per the recommendations of the Infectious Disease specialist and Dr. Leon. As such, I will ravi ok her also for replacement of a tunneled hemodialysis catheter. I have explained the risks, benefit s, and alternatives of replacement and removal of the tunneled hemodialysis catheter including, but n ot limited to bleeding, infection, pneumothorax, damage to surrounding tissue, need for further opera tion and procedures. The patient agrees as indicated. Thank you for this interesting consult. SAMEER/CONCEPCION Voice ID: [id number] Report ID: [id number]
[2020-05-02] MEDS ORDERED: NA CHLORIDE 0.9% 500 ML ONE (11:18)
[2020-05-02] MEDS ORDERED: LIDOCAINE 1% MPF 30 ML VIAL ONE (11:57)
[2020-05-02] MEDS ORDERED: propofoL 200 MG/20 ML VIAL IV ONE (12:38)
[2020-05-02] MEDS ORDERED: LIDOCAINE 2% MPF 5 ML VIAL ONE (12:38)
[2020-05-02] MEDS: BUPIVACA 0.25%/EPI 0.0005% MDV 50 ML VIAL ONE ×2 (12:40→12:51)
--- NOTE | 2020-05-02 12:47 | P.OP ---
Preoperative diagnosis: Infection of Cuffed Hemodialysis Catheter Postoperative diagnosis: Infection of Cuffed Hemodialysis Catheter Primary procedure: Removal of Cuffed Hemodialysis Catheter Anesthesia: MAC + Local Estimated blood loss: <1cc Specimen: catheter tip sent for culture Findings: slime apperance to catheter cuff consistent with infection Complications: None Implants: none Transferred to: Recovery Room Condition: Good
[2020-05-02] MEDS: HYDRALAZINE HCL 20 MG/ML VIAL IV PRN (13:58)
--- NOTE | 2020-05-02 17:18 | P.PN ---
Subjective Date of Service: 05/02/20 Chief Complaint: AMS Subjective: No new changes (doing well, didn't sleep well, restless overnight) Physical Examination - Vital Signs Temperature: 98.2 F Blood Pressure: 137/50 Pulse: 63 Respirations: 18 Pulse Ox (%): 99 - Physical Exam General: In no apparent distress, Cachectic HEENT: Sclerae nonicteric Neck: Supple Respiratory: Clear to auscultation bilaterally, Normal air movement Cardiovascular: No edema, Regular rate/rhythm Gastrointestinal: Soft and benign, Non-distended, No tenderness Musculoskeletal: No tenderness Integumentary: No rashes Neurological: Normal speech, Normal affect Urinary: Dialysis catheter (tunneled R IJ) Assessment & Plan Physician Review Additional Text: Patient is a 80 year old female with known PMH of HTN, ESRD on HD TTS but missed Tuesday's session due to access malfunction. She was able to resume her regular HD this session after access repair and was dialyzed on and tuesday, which was yesterday. As per family member, she was very hypertensive during her last HD session on day prior to admission and her SBP was in the 200's. She returned home confused. According to son, she also had a fever of [address] head was without acute intracranial abnormalities. Metabolic encephalopathy staphylococcus aureus bacteremia ESRD on dialysis () Hypertension Anemia of chronic disease improving, but continues with Staph bacteremia ID consulted, added and staff to the vancomycin on 04/30. Repeat blood culture from 04/30 remains positive for R IJ tunneled cath removal today with Dr. Carvalho. repeat culture on tuesday, if negative, can undergo insertion of new dialysis cath on Tuesday TTE without vegetation dialysis catheter was changed ~5-6 days ago due to non-functioning - likely s ource s/p 2 u PRBC transfusion on admission HD per nephrology discussed with ID - patient would likely benefit from continued management at LTAC Dispo: SW consulted for LTAC placement, patient will require at least another 4- 5 days of hospitalization, until cultures are negative Time Spent Managing Pts Care (In Minutes): 35
--- NOTE | 2020-05-02 20:40 | OP ---
Date of Procedure: 05/02/2020 Surgeon: Allen Carvalho MD, Preoperative Diagnosis: Infection of a cuffed hemodialysis catheter. Postoperative Diagnosis: Infection of a cuffed hemodialysis catheter. Procedure Performed: Removal of a cuffed hemodialysis catheter. Anesthesia: MAC plus local with 0.25% Marcaine. Estimated Fluid Loss: Less than 1 mL. Specimens: Catheter tip sent for cultures. Findings: Slight appearance of the catheter cuff consistent with infection. Complications: None. Implants: None. Disposition: The patient was transferred to recovery room in good condition. Procedure In Detail: After informed was obtained, the patient was brought to the operating room, pre pped draped in the usual sterile fashion. After adequate anesthesia was achieved, I injected 0.25% M arcaine circumferentially around the right internal jugular insertion site for the hemodialysis juana ter. After this was performed, I cut the sutures and removed the catheter with simple gentle tractio n. The cuff appeared to have a slime attached to it as to the distal aspect of the catheter. The ca theter tip was sent for culture. At this point, the patient was positioned from the Trendelenburg to the head-up position. At this point, the wound was inspected. There was no bleeding. The area was copiously irrigated multiple times and then a single interrupted 2-0 nylon suture was used to close the insertion site and a sterile dressing was placed over top. The patient tolerated the procedure w ell without evidence of complication and transferred to PACU in good condition. All counts were umesh ect at the end of the case. SAMEER/CONCEPCION Voice ID: [id number] Report ID: [id number]
[2020-05-02] MEDS: HOME MED 1 EA UNK (Latanoprost/Pf [Latanoprost 0.005% Eye Drop] 1 DROP) LEFT EYE SCH (21:00)
[2020-05-02] MEDS: ATORVASTATIN 20 MG TAB PO SCH (22:15)
[2020-05-03] MEDS: HEPARIN 5000 UNIT/ML 1 ML VIAL SQ SCH (01:00)
[2020-05-03 05:36] VITALS: BMI 18.4
[2020-05-03] MEDS: carvediloL 25 MG TAB PO SCH ×2 (05:43→17:28)
[2020-05-03 06:32] LABS: Basophils % 1.1 % (0-1.3); Hematocrit 28.8 % (36.0-45.0); Lymphocytes % 17.9 % (15.3-44.8); MPV 8.8 fL (7.6-11.3); RBC Red Blood Cell Count 3.28 M/uL (3.86-4.86)
[2020-05-03 07:08] LABS: Magnesium 2.2 mg/dL (1.8-2.4); Phosphorus 2.5 mg/dL (2.5-4.9); Potassium 4.2 mmol/L (3.5-5.1)
[2020-05-03] MEDS: INSULIN -REGULAR HUMAN 50 UNIT/0.5 ML ML SQ SCH ×4 (07:30→21:00)
--- NOTE | 2020-05-03 08:59 | P.PN ---
Subjective Date of Service: 05/03/20 Chief Complaint: AMS Subjective: No new changes (s/p RIJ cath removal yesterday. pt reports feeling well this morning, no SOB, no pain, no nausea/vomiting) Review of Systems 10-point ROS is otherwise unremarkable Physical Examination - Vital Signs Temperature: 97.8 F Blood Pressure: 188/74 Pulse: 57 Respirations: 18 Pulse Ox (%): 18 - Physical Exam General: Alert, In no apparent distress, Cachectic HEENT: Sclerae nonicteric Neck: Supple, Other (surgical pressure dressing c/d/i) Respiratory: Clear to auscultation bilaterally, Normal air movement Cardiovascular: No edema, Regular rate/rhythm Gastrointestinal: Soft and benign, Non-distended, No tenderness Musculoskeletal: No tenderness Integumentary: No rashes Neurological: Normal speech, Normal affect Assessment & Plan Physician Review Additional Text: Patient is a 80 year old female with known PMH of HTN, ESRD on HD TTS but missed Tuesday's session due to access malfunction. She was able to resume her regular HD this session after access repair and was dialyzed on and tuesday, which was yesterday. As per family member, she was very hypertensive during her last HD session on day prior to admission and her SBP was in the 200's. She returned home confused. According to son, she also had a fever of [address] head was without acute intracranial abnormalities. Metabolic encephalopathy, resolved Staphylococcus aureus bacteremia ESRD on dialysis () Hypertension Anemia of chronic disease Patient seems back to baseline, will discuss with family ID consulted, added ancef to the vancomycin on 04/30. Repeat blood culture from 04/30 remains positive s/p R IJ tunnele cath removal on 05/[address] Carvalho, - had slime appearance along cuff - likely source of infection repeat culture tomorrow, if negative, can undergo insertion of new dialysis cath on Tuesday TTE without vegetation s/p 2 u PRBC transfusion on admission HD per nephrology discussed with ID - patient would likely benefit from continued management at LTAC Dispo: SW consulted for LTAC placement, patient will require at least another 2- 3 days of hospitalization, until cultures are negative and new catheter placed Time Spent Managing Pts Care (In Minutes): 30
[2020-05-03] MEDS: LACTOBACILLUS/ACIDOPHILUS TAB PO SCH (09:28)
[2020-05-03] MEDS: HYDRALAZINE HCL 25 MG TABLET PO SCH ×3 (09:28→21:47)
[2020-05-03] MEDS: SEVELAMER CARBONATE 800 MG TABLET PO SCH ×3 (09:28→16:28)
[2020-05-03] MEDS: LEVOTHYROXINE SOD 0.05 MG TABLET PO SCH (09:28)
[2020-05-03] MEDS: PENTOXIFYLLINE ER 400 MG TAB PO SCH ×3 (09:28→21:47)
[2020-05-03] MEDS: CEFAZOLIN/SWI 1gm 1 GM/10 ML SYR IVP SCH (09:29)
[2020-05-03] MEDS: ASPIRIN 81 MG CHEWABLE TABLET PO SCH (09:29)
[2020-05-03] MEDS: PANTOPRAZOLE 40MG TABLET PO SCH (09:29)
[2020-05-03] MEDS: HYDRALAZINE HCL 20 MG/ML VIAL IV PRN (10:11)
[2020-05-03] MEDS: HOME MED 1 EA UNK (Latanoprost/Pf [Latanoprost 0.005% Eye Drop] 1 DROP) LEFT EYE SCH (21:00)
[2020-05-03] MEDS: ATORVASTATIN 20 MG TAB PO SCH (21:47)
[2020-05-04] MEDS: carvediloL 25 MG TAB PO SCH ×2 (06:12→16:48)
[2020-05-04 06:14] LABS: Magnesium 2.1 mg/dL (1.8-2.4)
[2020-05-04] MEDS: INSULIN -REGULAR HUMAN 50 UNIT/0.5 ML ML SQ SCH ×4 (07:30→21:00)
[2020-05-04] MEDS: HYDRALAZINE HCL 25 MG TABLET PO SCH ×2 (09:15→20:59)
[2020-05-04] MEDS: LACTOBACILLUS/ACIDOPHILUS TAB PO SCH (09:15)
[2020-05-04] MEDS: LEVOTHYROXINE SOD 0.05 MG TABLET PO SCH (09:15)
[2020-05-04] MEDS: PENTOXIFYLLINE ER 400 MG TAB PO SCH ×2 (09:15→20:59)
[2020-05-04] MEDS: SEVELAMER CARBONATE 800 MG TABLET PO SCH ×3 (09:15→16:48)
[2020-05-04] MEDS: ASPIRIN 81 MG CHEWABLE TABLET PO SCH (09:16)
[2020-05-04] MEDS: CEFAZOLIN/SWI 1gm 1 GM/10 ML SYR IVP SCH (09:16)
[2020-05-04] MEDS: HYDRALAZINE HCL 20 MG/ML VIAL IV PRN (09:16)
[2020-05-04] MEDS: PANTOPRAZOLE 40MG TABLET PO SCH (09:16)
--- NOTE | 2020-05-04 15:39 | P.PN ---
Subjective Date of Service: 05/04/20 Chief Complaint: AMS Subjective: No new changes (Overall doing well, without complaints this morning) Review of Systems 10-point ROS is otherwise unremarkable Physical Examination - Vital Signs Temperature: 97.8 F Blood Pressure: 151/63 Pulse: 66 Respirations: 18 Pulse Ox (%): 99 - Physical Exam General: Alert, Oriented x2 Respiratory: Clear to auscultation bilaterally, Normal air movement Cardiovascular: No edema, Regular rate/rhythm Gastrointestinal: Soft and benign, Non-distended, No tenderness Musculoskeletal: No tenderness Neurological: Normal speech Assessment & Plan Physician Review Additional Text: Metabolic encephalopathy, resolved Staphylococcus aureus bacteremia ESRD on dialysis () Hypertension Anemia of chronic disease Patient seems back to baseline ID consulted, added ancef to the vancomycin on 04/30. Repeat blood culture from 04/30 remains positive. Repeat blood cultures obtained this morning if negative, can undergo insertion of new dialysis cath on Tuesday s/p R IJ tunnele cath removal on 05/[address] Carvalho, - had slime appearance along cuff - likely source of infection, however culture of the tip is negative so far TTE without vegetation s/p 2 u PRBC transfusion on admission HD per nephrology - last dialysis was done on discussed with ID - patient would likely benefit from continued management at LTAC Dispo: SW consulted for LTAC placement, patient will require at least another 2 days of hospitalization, until cultures are negative and new catheter placed Time Spent Managing Pts Care (In Minutes): 30
[2020-05-04] MEDS: HOME MED 1 EA UNK (Latanoprost/Pf [Latanoprost 0.005% Eye Drop] 1 DROP) LEFT EYE SCH (20:59)
[2020-05-04] MEDS: ATORVASTATIN 20 MG TAB PO SCH (20:59)
[2020-05-05] MEDS: HYDRALAZINE HCL 20 MG/ML VIAL IV PRN ×2 (04:10→08:53)
[2020-05-05] MEDS: carvediloL 25 MG TAB PO SCH ×2 (05:10→17:51)
[2020-05-05 06:02] LABS: Absolute Lymphocytes (CBC) 0.9 K/uL (0.7-4.9); Basophils % 1.7 % (0-1.3); Hematocrit 27.5 % (36.0-45.0); MPV 8.2 fL (7.6-11.3)
[2020-05-05 06:14] LABS: Magnesium 2.2 mg/dL (1.8-2.4); Phosphorus 2.7 mg/dL (2.5-4.9); Potassium 4.3 mmol/L (3.5-5.1)
[2020-05-05] MEDS: INSULIN -REGULAR HUMAN 50 UNIT/0.5 ML ML SQ SCH ×4 (07:30→21:00)
[2020-05-05] MEDS: CEFAZOLIN/SWI 1gm 1 GM/10 ML SYR IVP SCH (08:26)
--- NOTE | 2020-05-05 08:48 | P.PN ---
Subjective Date of Service: 05/05/20 Chief Complaint: AMS Subjective: No new changes (Reports overall doing okay, somewhat tearful today, feels frustrated. Reports no pain/nausea/vomiting, no chills) Review of Systems 10-point ROS is otherwise unremarkable Physical Examination - Vital Signs Temperature: 97.0 F Blood Pressure: 186/77 Pulse: 57 Respirations: 18 Pulse Ox (%): 97 - Physical Exam General: Alert, In no apparent distress, Oriented x2, Cachectic HEENT: Sclerae nonicteric Respiratory: Clear to auscultation bilaterally Cardiovascular: No edema, Regular rate/rhythm Gastrointestinal: Soft and benign, Non-distended, No tenderness Musculoskeletal: No tenderness Integumentary: No rashes Neurological: Normal speech Assessment & Plan Physician Review Additional Text: Staphylococcus aureus bacteremia Metabolic encephalopathy, resolved ESRD on dialysis () Hypertension Anemia of chronic disease ID following. On Vanc, Ancef added (04/30) due to MSSA and repeat blood cultures remaining positive s/p R IJ tunneled cath removal on 05/[address] Carvalho, - had slime appearance along cuff - likely source of infection, however culture of the tip is negative so far Blood cultures obtained 05/04 am: [id number] - discussed with ID, ok to proceed with dialysis catheter insertion today TTE without vegetation s/p 2 u PRBC transfusion on admission HD per nephrology - last dialysis was done on discussed with ID - patient would likely benefit from continued management at LTAC Dispo: awaiting to here about LTAC, anticipate discharge in ~48hrs Time Spent Managing Pts Care (In Minutes): 30
[2020-05-05] MEDS ORDERED: NA CHLORIDE 0.9% 500 ML ONE (09:15)
[2020-05-05] MEDS: LACTOBACILLUS/ACIDOPHILUS TAB PO SCH (09:51)
[2020-05-05] MEDS: SEVELAMER CARBONATE 800 MG TABLET PO SCH ×3 (09:51→17:06)
[2020-05-05] MEDS: PANTOPRAZOLE 40MG TABLET PO SCH (09:51)
[2020-05-05] MEDS: PENTOXIFYLLINE ER 400 MG TAB PO SCH ×2 (09:51→21:36)
[2020-05-05] MEDS: ASPIRIN 81 MG CHEWABLE TABLET PO SCH (09:51)
[2020-05-05] MEDS: LEVOTHYROXINE SOD 0.05 MG TABLET PO SCH (09:51)
[2020-05-05] MEDS: HYDRALAZINE HCL 25 MG TABLET PO SCH ×2 (09:52→21:36)
--- NOTE | 2020-05-05 18:37 | PN ---
Subjective: The patient is lying in bed. No new acute event. Chart reviewed. Blood cultures are n egative for the last 24 hours. Objective: Vital Signs: Temperature 97, pulse 61, respirations 18, blood pressure 153/72. HEENT: Unremarkable. Neck: Supple. Lungs: Basal crackles. Heart: S1, S2. Regular. Abdomen: Soft, nontender. Bowel sounds present. Extremities: No edema. Laboratory Data: Shows WBC 4.9, hemoglobin 9, platelets are 264. Chemistry shows sodium 138, potass ium 4.3, chloride 104, bicarb 26, BUN 57, creatinine 4.8, glucose is 74. Micro data: Blood cultures , Staph aureus on 05/04 cultures are negative for 24 hours. Assessment And Plan: 1.Persistent bacteremia, status post catheter removal. Her cultures are negative for 24 hours. 2.End-stage renal disease. Continue antibiotic and supportive care. Continue 14 days of cefazolin, status post cultures being negative. We will follow the patient closely. NF/MODL Voice ID: [id number] Report ID: [id number]
[2020-05-05] MEDS: HOME MED 1 EA UNK (Latanoprost/Pf [Latanoprost 0.005% Eye Drop] 1 DROP) LEFT EYE SCH (21:00)
[2020-05-05] MEDS: ATORVASTATIN 20 MG TAB PO SCH (21:36)
--- NOTE | 2020-05-05 23:02 | P.PN ---
Subjective Date of Service: 05/04/20 Chief Complaint: AMS Pt seen and examined on HD. No chills, fevers, nausea, vomiting. Physical Examination - Vital Signs Temperature: 97.3 F Blood Pressure: 177/60 Pulse: 65 Respirations: 18 Pulse Ox (%): 98 - Physical Exam HEENT: Atraumatic, PERRLA, EOMI Neck: Supple, JVD not distended Respiratory: Clear to auscultation bilaterally, Normal air movement Cardiovascular: Regular rate/rhythm, Normal S1 S2 Gastrointestinal: Normal bowel sounds, No tenderness Musculoskeletal: No tenderness Integumentary: No rashes Neurological: Normal speech, Normal tone, Normal affect Lymphatics: No axilla or inguinal lymphadenopathy Assessment & Plan Physician Review Additional Text: Staphylococcus aureus bacteremia Metabolic encephalopathy, resolved ESRD on dialysis () Hypertension Anemia of chronic disease PLAN ID following. On Vanc, Ancef added (04/30) due to MSSA and repeat blood cultures remaining positive s/p R IJ tunneled cath removal on 05/[address] Carvalho, - Labs stable. No indication for emergent HD. Will continue to monitor.
--- NOTE | 2020-05-05 23:10 | P.PN ---
Subjective Date of Service: 05/05/20 Chief Complaint: AMS Pt seen and examined on HD. No chills, fevers, nausea, vomiting. Review of Systems 10-point ROS is otherwise unremarkable Physical Examination - Vital Signs Temperature: 97.3 F Blood Pressure: 177/60 Pulse: 65 Respirations: 18 Pulse Ox (%): 98 - Physical Exam General: Alert, In no apparent distress HEENT: Atraumatic, PERRLA, EOMI Neck: Supple, JVD not distended Respiratory: Clear to auscultation bilaterally, Normal air movement Cardiovascular: Regular rate/rhythm, Normal S1 S2 Gastrointestinal: Normal bowel sounds, No tenderness Musculoskeletal: No tenderness Integumentary: No rashes Neurological: Normal speech, Normal tone, Normal affect Lymphatics: No axilla or inguinal lymphadenopathy Assessment & Plan Physician Review: Patient Assessed, Agree with Above Assessment and Plan Physician Review Additional Text: Staphylococcus aureus bacteremia Metabolic encephalopathy, resolved ESRD on dialysis (T--) Hypertension Anemia of chronic disease PLAN ID following. On Vanc, Ancef added (04/30) due to MSSA and repeat blood cultures remaining positive s/p R IJ tunneled cath removal on 05/[address] Carvalho, - Blood culture follow up negatie till date Discussed with Hd unit. has antibiotic Pls wait 24hr now more for culture eveually negativ Labs stable. No indication for emergent HD. Will continue to monitor.
[2020-05-06] MEDS: carvediloL 25 MG TAB PO SCH ×2 (06:08→18:00)
[2020-05-06 06:27] LABS: Potassium 4.7 mmol/L (3.5-5.1)
[2020-05-06] MEDS: INSULIN -REGULAR HUMAN 50 UNIT/0.5 ML ML SQ SCH ×4 (07:30→21:00)
[2020-05-06] MEDS: SEVELAMER CARBONATE 800 MG TABLET PO SCH ×3 (08:00→16:10)
[2020-05-06] MEDS: CEFAZOLIN/SWI 1gm 1 GM/10 ML SYR IVP SCH (08:24)
[2020-05-06] MEDS: ASPIRIN 81 MG CHEWABLE TABLET PO SCH (08:25)
[2020-05-06] MEDS: LEVOTHYROXINE SOD 0.05 MG TABLET PO SCH (08:25)
[2020-05-06] MEDS: LACTOBACILLUS/ACIDOPHILUS TAB PO SCH (08:25)
[2020-05-06] MEDS: PANTOPRAZOLE 40MG TABLET PO SCH (08:25)
[2020-05-06] MEDS: PENTOXIFYLLINE ER 400 MG TAB PO SCH ×3 (08:26→21:06)
[2020-05-06] MEDS: HYDRALAZINE HCL 25 MG TABLET PO SCH ×3 (08:51→21:06)
--- NOTE | 2020-05-06 13:07 | P.PN ---
Subjective Date of Service: 05/06/20 Chief Complaint: AMS Patient has no complain today Most recent blood cultures have yielded no growth. Blood culture is growing Staph aureus in 2 bottles. Patient is scheduled for dialysis catheter placement. Physical Examination - Vital Signs Temperature: 97.1 F Blood Pressure: 158/62 Pulse: 57 Respirations: 18 Pulse Ox (%): 98 - Physical Exam General: In no apparent distress, Other (Awake) HEENT: Mucous membr. moist/pink Neck: Supple, JVD not distended Respiratory: Clear to auscultation bilaterally, Normal air movement Cardiovascular: No edema, Regular rate/rhythm, Normal S1 S2 Gastrointestinal: Normal bowel sounds, Soft and benign Musculoskeletal: No swelling, No erythema Integumentary: No rashes Assessment And Plan - Current Problems (Diagnosis) (1) Staphylococcus aureus bacteremia Current Visit: Yes Status: Acute (2) Metabolic encephalopathy Current Visit: Yes Status: Acute (3) ESRD (end stage renal disease) on dialysis Current Visit: No Status: Acute (4) Hypertension Current Visit: No Status: Acute (5) Anemia in chronic kidney disease Current Visit: Yes Status: Acute - Plan Bacteremia likely related to the dialysis catheter. Patient is scheduled for catheter placement. Case discussed with infectious disease-Dr. Arshad. Most recent blood culture have yielded no growth for 48 hrs Plan is to continue transfer for 2 more weeks. Hemodialysis per nephrology. Status post 2 units PRBC transfusion. Hemoglobin has been stable. Continue home antihypertensives. Insulin sliding scale for glucose management.
[2020-05-06] MEDS ORDERED: NS 0.9% VIAL 40 ML ONE (13:59)
[2020-05-06] MEDS ORDERED: propofoL 200 MG/20 ML VIAL IV ONE (14:08)
[2020-05-06] MEDS ORDERED: LIDOCAINE 2% MPF 5 ML VIAL ONE (14:09)
[2020-05-06] MEDS ORDERED: CEFAZOLIN SODIUM 1 GM/VIAL IVP ONE (14:15)
[2020-05-06] MEDS: BUPIVACA 0.25%/EPI 0.0005% MDV 50 ML VIAL ONE ×2 (14:31→14:39)
[2020-05-06] MEDS: HEPARIN 5000 UNIT/ML 1 ML VIAL ONE ×2 (14:32→14:38)
--- NOTE | 2020-05-06 14:47 | P.OP ---
Preoperative diagnosis: End Stage Renal Disease Postoperative diagnosis: End Stage Renal Disease Primary procedure: Placement of Tunnelled Cuffed Hemodialysis Catheter Anesthesia: GETA + Local Estimated blood loss: <10cc Specimen: None Findings: Dark, non pulsatile blood flow Complications: None Implants: Cuffed 24 cm hemosplit catheter Transferred to: Recovery Room Condition: Good
[2020-05-06] MEDS ORDERED: CEFAZOLIN SODIUM 1 GM/VIAL ONE (14:48)
--- NOTE | 2020-05-06 15:36 | RAD REPORT ---
EXAM DESCRIPTION: RAD - Fluoroscopy <1 Hour - 05/06/2020 3:22 pm CLINICAL HISTORY: Venous catheter insertion. HEMODIALYSIS CATHETER PLACEMENT COMPARISON: Fluoroscopy <1 Hour dated 11/01/2019 FINDINGS: Fluoroscopic imaging is submitted from placement of a venous catheter. Details of the pro cedure not available. Fluoroscopy time: 0.4 minutes.
--- NOTE | 2020-05-06 15:36 | RAD REPORT ---
EXAM DESCRIPTION: RAD - Chest Single View - 05/06/2020 3:22 pm CLINICAL HISTORY: LEFT IJ catheter placement Chest pain. COMPARISON: Chest Single View dated 04/26/2020; Chest Single View dated 11/01/2019; Chest Single View dated 11/01/2019; Chest Single View dated 09/25/2019 FINDINGS: Portable technique limits examination quality. Left-sided venous catheter has been placed with its tip in the SVC. No postprocedure pneumothorax is suspected. Heart is mildly enlarged in size.
--- NOTE | 2020-05-06 15:45 | OP ---
Date of Procedure: 05/06/2020 Surgeon: Allen Carvalho MD, Preoperative Diagnosis: End-stage renal disease. Postoperative Diagnosis: End-stage renal disease. Procedures Performed: 1.Placement of tunneled cuffed hemodialysis catheter. 2.Fluoroscopy and intraoperative ultrasound performed. Anesthesia: General endotracheal plus local with 0.25% Marcaine. Estimated Blood Loss: Less than 10 mL. Findings: Dark nonpulsatile blood flow through catheter. Complications: None. Implants: A cuffed 24 cm HemoSplit catheter. Disposition: Transferred to the recovery in good condition. Procedure In Detail: After informed consent was obtained, the patient was brought to the operating r oom, prepped draped in the usual sterile fashion. After adequate anesthesia achieved, the patient wa s placed in steep Trendelenburg position. Ultrasound was used to inject local over the left internal jugular vein. This was after being anesthetized appropriately. I cannulated the left internal jugu lar vein on the first attempt using a microintroducer set. A microintroducer needle was introduced w ith microwire under direct visualization with ultrasound guidance. Position of the microwire was con firmed after removal of the needle with the fluoroscopy confirming wire was in the SVC. At this poin t, a small henry incision was made and a microintroducer sheath was introduced using SelBluelock ue with the microwire in the left internal jugular vein. Microwire was removed. Standard wire was a dvanced and position was once again verified using fluoroscopy showing the required confluence of the SVC without evidence of complication. At this point, the microintroducer sheath was removed. I ane sthetized the tract on the chest wall using 0.25% Marcaine with epinephrine under the collarbone. I then used a tunneling device, placed catheter on the tunneling device, and made a henry incision in th e left chest wall, passed the catheter through the tract and brought out through the insertion site. I then performed sequential dilatation over the wire using Seldinger technique and the introducer sh selvinh was placed. Wire out was called at this point for the second time and the catheter was then lissette francheska in the introducer sheath without evidence of complication. The sheath was removed. Catheter flu shed and withdrew quite easily and at this point, fluoroscopy confirmed the position at the confluenc e of the SVC. The skin incisions were then copiously irrigated and closed with interrupted 3-0 nylon suture and the catheter was secured to the chest with the same set of 3-0 nylon sutures. Super flus h was used to pack the catheter and the sterile dressing was placed over top. The patient tolerated the procedure well without evidence of complication and transferred to PACU in good condition. All c ounts were correct at the end of the case. SAMEER/CONCEPCION Voice ID: [id number] Report ID: [id number]
[2020-05-06] MEDS ORDERED: ALBUMIN HUMAN 25% 50 ML IV ONE (17:25)
[2020-05-06] MEDS: ATORVASTATIN 20 MG TAB PO SCH ×2 (21:00→21:06)
[2020-05-06] MEDS ORDERED: EYE OPTH SCH (21:00)
[2020-05-06] MEDS ORDERED: LATANOPROST 0.005% OPTH SCH (21:00)
[2020-05-06] MEDS: HYDRALAZINE HCL 20 MG/ML VIAL IV PRN (21:14)
[2020-05-07] MEDS: ACETAMINOPHEN 500 MG TAB PO PRN (05:24)
[2020-05-07] MEDS: carvediloL 25 MG TAB PO SCH ×2 (05:24→17:01)
[2020-05-07 05:34] LABS: Absolute Lymphocytes (CBC) 0.9 K/uL (0.7-4.9); Basophils % 1.2 % (0-1.3); Hematocrit 27.1 % (36.0-45.0); Lymphocytes % 18.7 % (15.3-44.8); MPV 8.2 fL (7.6-11.3); RBC Red Blood Cell Count 3.09 M/uL (3.86-4.86)
[2020-05-07 06:01] LABS: Potassium 3.9 mmol/L (3.5-5.1)
[2020-05-07] MEDS: INSULIN -REGULAR HUMAN 50 UNIT/0.5 ML ML SQ SCH ×4 (07:30→21:00)
[2020-05-07] MEDS: PANTOPRAZOLE 40MG TABLET PO SCH (08:41)
[2020-05-07] MEDS: PENTOXIFYLLINE ER 400 MG TAB PO SCH ×2 (08:41→21:00)
[2020-05-07] MEDS: LEVOTHYROXINE SOD 0.05 MG TABLET PO SCH (08:41)
[2020-05-07] MEDS: SEVELAMER CARBONATE 800 MG TABLET PO SCH ×3 (08:41→16:57)
[2020-05-07] MEDS: ASPIRIN 81 MG CHEWABLE TABLET PO SCH (08:41)
[2020-05-07] MEDS: LACTOBACILLUS/ACIDOPHILUS TAB PO SCH (08:41)
[2020-05-07] MEDS: HYDRALAZINE HCL 25 MG TABLET PO SCH ×2 (08:41→21:00)
[2020-05-07] MEDS: CEFAZOLIN/SWI 1gm 1 GM/10 ML SYR IVP SCH (08:42)
--- NOTE | 2020-05-07 11:34 | PN ---
Subjective: The patient is lying in bed. No new complaint. Denies any headache, nausea, vomiting, chest pain, abdominal pain, constipation, or diarrhea. Objective: Vital Signs: Temperature 97.6, pulse 58, respirations 18, blood pressure 153/63. Lungs: Clear to auscultation. Heart: S1, S2. Regular. Abdomen: Soft, nontender. Bowel sounds present. Extremities: No edema. Muscle wasting noted. Laboratory Data: Shows WBC of 4.9, hemoglobin 8.8, platelets are 222. Chemistry shows sodium 140, p otassium 3.9, chloride 105, bicarb 29, BUN 20, creatinine 2.38, glucose 83. Micro data; Staph aureus and blood cultures till 04/30 and 05/04 cultures are negative. The patient is currently being treat ed with cefazolin. Assessment And Plan: The patient with line sepsis and bacteremia secondary to Staphylococcus aureus, currently being treated with cefazolin. Last cultures on 05/04 were negative. We will recommend to continue antibiotic for 2 more weeks from 05/04 and follow the patient closely. Line has been osei ed. The patient with end-stage renal disease and protein-calorie malnourishment. Continue current t reatment. We will follow the patient as needed. NF/MODL Voice ID: [id number] Report ID: [id number]
--- NOTE | 2020-05-07 14:23 | P.PN ---
Subjective Date of Service: 05/07/20 Chief Complaint: AMS Patient has no complain today Most recent blood cultures have yielded no growth. Status post dialysis catheter placement yesterday. Physical Examination - Vital Signs Temperature: 97.6 F Blood Pressure: 153/63 Pulse: 58 Respirations: 18 Pulse Ox (%): 99 - Physical Exam General: Alert, In no apparent distress HEENT: Mucous membr. moist/pink Neck: JVD not distended Respiratory: Clear to auscultation bilaterally, Normal air movement Cardiovascular: No edema, Regular rate/rhythm, Normal S1 S2 Gastrointestinal: Normal bowel sounds, Soft and benign, No tenderness Musculoskeletal: No swelling Integumentary: No rashes Neurological: Other (Nonfocal) Assessment And Plan - Current Problems (Diagnosis) (1) Staphylococcus aureus bacteremia Current Visit: Yes Status: Acute (2) Metabolic encephalopathy Current Visit: Yes Status: Acute (3) ESRD (end stage renal disease) on dialysis Current Visit: No Status: Acute (4) Hypertension Current Visit: No Status: Acute (5) Anemia in chronic kidney disease Current Visit: Yes Status: Acute - Plan Antibiotics scaled down to IV Cefazolin. Plan is to continue transfer for 2 more weeks from negative blood culture. Hemodialysis per nephrology. Status post 2 units PRBC transfusion. Hemoglobin has been stable. Continue home antihypertensives. Insulin sliding scale for glucose management. Disposition to SNF. Physician Review: Patient Assessed, Agree with Above Assessment and Plan
[2020-05-07] MEDS: ATORVASTATIN 20 MG TAB PO SCH (21:00)
[2020-05-08] MEDS: HYDRALAZINE HCL 20 MG/ML VIAL IV PRN (04:58)
[2020-05-08] MEDS: carvediloL 25 MG TAB PO SCH ×2 (06:12→17:55)
[2020-05-08] MEDS: INSULIN -REGULAR HUMAN 50 UNIT/0.5 ML ML SQ SCH ×4 (07:30→21:00)
[2020-05-08] MEDS: SEVELAMER CARBONATE 800 MG TABLET PO SCH ×3 (08:00→17:54)
[2020-05-08] MEDS: HYDRALAZINE HCL 25 MG TABLET PO SCH ×3 (09:00→21:00)
[2020-05-08] MEDS: LEVOTHYROXINE SOD 0.05 MG TABLET PO SCH (09:00)
[2020-05-08] MEDS: PANTOPRAZOLE 40MG TABLET PO SCH (09:00)
[2020-05-08] MEDS: CEFAZOLIN/SWI 1gm 1 GM/10 ML SYR IVP SCH (09:00)
[2020-05-08] MEDS: ASPIRIN 81 MG CHEWABLE TABLET PO SCH (09:00)
[2020-05-08] MEDS: LACTOBACILLUS/ACIDOPHILUS TAB PO SCH (09:00)
[2020-05-08] MEDS: PENTOXIFYLLINE ER 400 MG TAB PO SCH ×3 (09:00→21:00)
--- NOTE | 2020-05-08 11:26 | P.PN ---
Subjective Date of Service: 05/08/20 Chief Complaint: AMS No new complaint. Patient is waiting for SNF placement. Physical Examination - Vital Signs Temperature: 97.6 F Blood Pressure: 185/73 Pulse: 67 Respirations: 18 Pulse Ox (%): 98 - Physical Exam General: In no apparent distress, Other (Awake) Neck: JVD not distended Respiratory: Clear to auscultation bilaterally, Normal air movement Cardiovascular: No edema, Regular rate/rhythm, Normal S1 S2 Gastrointestinal: Normal bowel sounds, Soft and benign, No tenderness Musculoskeletal: No swelling, No tenderness Integumentary: No rashes, No erythema Neurological: Normal speech, Normal strength at 5/5 x4 extr Assessment And Plan - Current Problems (Diagnosis) (1) Staphylococcus aureus bacteremia Current Visit: Yes Status: Acute (2) Metabolic encephalopathy Current Visit: Yes Status: Acute (3) ESRD (end stage renal disease) on dialysis Current Visit: No Status: Acute (4) Hypertension Current Visit: No Status: Acute (5) Anemia in chronic kidney disease Current Visit: Yes Status: Acute - Plan Continue IV Cefazolin Patient is slated for 2 weeks of IV Cefazolin. Hemodialysis per nephrology. Status post 2 units PRBC transfusion. Stable hemoglobin Continue home antihypertensives. Insulin sliding scale for glucose management. Awaiting disposition to SNF. Physician Review: Patient Assessed, Agree with Above Assessment and Plan Physician Review Additional Text: Staphylococcus aureus bacteremia Metabolic encephalopathy, resolved ESRD on dialysis (T--) Hypertension Anemia of chronic disease PLAN ID following. On Vanc, Ancef added (04/30) due to MSSA and repeat blood cultures remaining positive s/p R IJ tunneled cath removal on 05/[address] Carvalho, - Blood culture follow up negatie till date Discussed with Hd unit. has antibiotic Pls wait 24hr now more for culture eveually negativ Labs stable. No indication for emergent HD. Will continue to monitor.
--- NOTE | 2020-05-08 16:46 | PN ---
Subjective: The patient is lying in bed. No new acute events. Chart reviewed. Objective: Vital Signs: Temperature 97.6, pulse 65, respirations 18, blood pressure 185/73. Lungs: Basal crackles. Heart: S1, S2. Regular. Abdomen: Soft, nontender. Bowel sounds present. Extremities: No edema. Laboratory Data: Shows WBC 4.9, hemoglobin 8.8, platelets are 222. Assessment And Plan: 1.Bacteremia secondary to Staphylococcus aureus. Last culture after discontinuing IV line is negati ve since 05/04. 2.Line sepsis. Now, that line has removed. Continue current treatment for total of 2 weeks from th e time of negative blood culture and we will follow the patient as needed. Continue cefazolin. NF/MODL Voice ID: [id number] Report ID: [id number]
[2020-05-08] MEDS: ATORVASTATIN 20 MG TAB PO SCH ×2 (20:46→21:00)
[2020-05-09] MEDS: carvediloL 25 MG TAB PO SCH ×2 (05:02→17:43)
[2020-05-09] MEDS: HYDRALAZINE HCL 20 MG/ML VIAL IV PRN (05:04)
[2020-05-09 06:35] LABS: Hematocrit 26.2 % (36.0-45.0)
[2020-05-09 06:50] LABS: Albumin 2.3 g/dL (3.4-5.0); Phosphorus 2.4 mg/dL (2.5-4.9); Potassium 3.8 mmol/L (3.5-5.1)
[2020-05-09] MEDS: INSULIN -REGULAR HUMAN 50 UNIT/0.5 ML ML SQ SCH ×3 (07:30→16:30)
[2020-05-09] MEDS: ASPIRIN 81 MG CHEWABLE TABLET PO SCH (10:13)
[2020-05-09] MEDS: SEVELAMER CARBONATE 800 MG TABLET PO SCH ×3 (10:13→17:43)
[2020-05-09] MEDS: PENTOXIFYLLINE ER 400 MG TAB PO SCH (10:13)
[2020-05-09] MEDS: LACTOBACILLUS/ACIDOPHILUS TAB PO SCH (10:13)
[2020-05-09] MEDS: LEVOTHYROXINE SOD 0.05 MG TABLET PO SCH (10:13)
[2020-05-09] MEDS: PANTOPRAZOLE 40MG TABLET PO SCH (10:13)
[2020-05-09] MEDS: CEFAZOLIN/SWI 1gm 1 GM/10 ML SYR IVP SCH (10:16)
[2020-05-09] MEDS: HYDRALAZINE HCL 25 MG TABLET PO SCH (10:16)
[2020-05-09 13:05] VITALS: O2SAT 98
--- NOTE | 2020-05-09 13:40 | P.PN ---
Subjective Date of Service: 05/09/20 Chief Complaint: AMS No new complaint. No issues overnight Patient had dialysis yesterday. She is waiting for SNF placement. Physical Examination - Vital Signs Temperature: 98.3 F Blood Pressure: 154/65 Pulse: 63 Respirations: 16 Pulse Ox (%): 98 - Physical Exam General: Alert, In no apparent distress Neck: Supple Respiratory: Clear to auscultation bilaterally, Normal air movement Cardiovascular: No edema, Regular rate/rhythm, Normal S1 S2 Gastrointestinal: Normal bowel sounds, Soft and benign, No tenderness Musculoskeletal: No swelling, No erythema Integumentary: No rashes Neurological: Other (Nonfocal) Assessment And Plan - Current Problems (Diagnosis) (1) Staphylococcus aureus bacteremia Current Visit: Yes Status: Acute (2) Metabolic encephalopathy Current Visit: Yes Status: Acute (3) ESRD (end stage renal disease) on dialysis Current Visit: No Status: Acute (4) Hypertension Current Visit: No Status: Acute (5) Anemia in chronic kidney disease Current Visit: Yes Status: Acute - Plan Continue IV Cefazolin. Patient is slated for 2 weeks of IV Cefazolin. Hemodialysis per nephrology. Stable hemoglobin Continue home antihypertensives. Insulin sliding scale for glucose management. Awaiting disposition to SNF.
--- NOTE | 2020-05-09 14:41 | P.PN ---
Subjective Date of Service: 05/08/20 Chief Complaint: AMS Pt seen and examined on HD. No chills, fevers, nausea, vomiting. Physical Examination - Vital Signs Temperature: 98.3 F Blood Pressure: 154/65 Pulse: 63 Respirations: 16 Pulse Ox (%): 98 - Physical Exam General: Alert, In no apparent distress HEENT: Atraumatic, PERRLA, EOMI Neck: Supple, JVD not distended Respiratory: Clear to auscultation bilaterally, Normal air movement Cardiovascular: Regular rate/rhythm, Normal S1 S2 Gastrointestinal: Normal bowel sounds, No tenderness Musculoskeletal: No tenderness Integumentary: No rashes Neurological: Normal speech, Normal tone, Normal affect Lymphatics: No axilla or inguinal lymphadenopathy Assessment & Plan Physician Review: Patient Assessed, Agree with Above Assessment and Plan Physician Review Additional Text: Staphylococcus aureus bacteremia Metabolic encephalopathy, resolved ESRD on dialysis (-) Hypertension Anemia of chronic disease PLAN ID following. On Vanc, Ancef added (04/30) due to MSSA and repeat blood cultures remaining positive s/p R IJ tunneled cath removal on 05/[address] Carvalho, - Blood culture negative HD performed today. Tolerated w/o event. May discharge home on ancef which can be given in HD unit
--- NOTE | 2020-05-09 15:24 | P.DS ---
Admission Date: 04/26/20 Discharge Date: 05/09/20 Disposition: TRANSFER TO [facility]ENTION Discharge Condition: FAIR Reason for Admission: AMS - Problems (1) Staphylococcus aureus bacteremia Current Visit: Yes Status: Acute (2) Metabolic encephalopathy Current Visit: Yes Status: Acute (3) ESRD (end stage renal disease) on dialysis Current Visit: No Status: Acute (4) Hypertension Current Visit: No Status: Acute (5) Anemia in chronic kidney disease Current Visit: Yes Status: Acute Brief History of Present Illness: 80-year-old woman with a history of end-stage renal disease on hemodialysis, diabetes mellitus type 2, bed bound and wheelchair bound presented to the emergency department because family were concerned of altered mental status. Patient had her dialysis catheter changed 3 days ago because it was not functioning well. She missed dialysis on Tuesday but had dialysis done on and this morning. Family reports patient was febrile with a temperature up to 102.5 at home and was more confused. She could not provide any history in the ED. The son denied any diarrhea or nausea or vomiting. She does make urine. Urinalysis done did not suggest the presence of UTI. Her temperature was 100.1 in the ED. The patient did not meet criteria for sepsis. She had no leukocytosis. Lactic acid was normal. Patient was admitted for further management. Hospital Course: Patient admitted to the medical floor and started on aggressive antibiotic therapy which included IV cefepime and vancomycin. 6 sets of blood cultures grew MSSA. Bacterial considered to be related to the new dialysis catheter. General surgery was consulted and the dialysis catheter removed. Finally her blood culture on 05/04/2020 yielded no growth. A new hemodialysis catheter was inserted, patient underwent routine hemodialysis afterwards. Patient was seen by infectious disease-Dr. Arshad and antibiotics changed to IV cefazolin based on sensitivity. dr. Arshad recommend 2 weeks of IV antibiotics from the date of negative blood cultures which is 05/04. Patient will complete 8 more days of IV cefazolin in the nursing the half-way. Patient was borderline hypoglycemic during the hospital stay. Her long-acting insulin was discontinued and glucose managed with insulin sliding scale. She also received physical therapy during the hospital stay. Vital Signs/Physical Exam: Temp Pulse Resp BP Pulse Ox 98.3 F 63 16 154/65 H 98 05/09/20 14:48 05/09/20 14:48 05/09/20 14:48 05/09/20 14:48 05/09/20 14:48 General: In no apparent distress HEENT: Mucous membr. moist/pink Neck: JVD not distended Respiratory: Clear to auscultation bilaterally, Normal air movement Cardiovascular: No edema, Regular rate/rhythm, Normal S1 S2 Gastrointestinal: Normal bowel sounds, Soft and benign, No tenderness Musculoskeletal: No swelling, No tenderness Integumentary: No rashes, No erythema Neurological: Other (Nonfocal) Laboratory Data at Discharge: WBC 4.9 K/uL (4.3-10.9) 05/07/20 03:20 Hgb 8.9 g/dL (12.0-15.0) L 05/09/20 06:05 Hct 26.2 % (36.0-45.0) L 05/09/20 06:05 Plt Count 222 K/uL (152-406) 05/07/20 03:20 PT 12.6 SECONDS (9.5-12.5) H 04/26/20 19:45 INR 1.07 04/26/20 19:45 APTT 25.3 SECONDS (24.3-36.9) 04/26/20 19:45 Sodium 142 mmol/L (136-145) 05/09/20 06:05 Potassium 3.8 mmol/L (3.5-5.1) 05/09/20 06:05 BUN 19 mg/dL (7-18) H 05/09/20 06:05 Creatinine 2.59 mg/dL (0.55-1.3) H 05/09/20 06:05 Glucose 92 mg/dL (74-106) 05/09/20 06:05 Phosphorus 2.4 mg/dL (2.5-4.9) L 05/09/20 06:05 Magnesium 2.2 mg/dL (1.8-2.4) 05/05/20 05:43 Total Bilirubin 0.3 mg/dL (0.2-1.0) 04/26/20 19:45 AST 10 U/L (15-37) L 04/26/20 19:45 ALT < 6 U/L (12-78) L 04/26/20 19:45 Alkaline Phosphatase 56 U/L (45-117) 04/26/20 19:45 Troponin I 0.75 ng/mL (0.0-0.045) H* 04/27/20 01:10 Amylase 70 U/L (25-115) 04/26/20 19:45 Lipase 83 U/L (73-393) 04/26/20 19:45 Home Medications: Aspirin 81 mg PO DAILY 10/31/19 Atorvastatin Calcium [Lipitor*] 20 mg PO BEDTIME 10/31/19 Levothyroxine Sodium 50 mcg PO DAILY 10/31/19 Pantoprazole [Protonix Tab*] 40 mg PO DAILY 10/31/19 Pentoxifylline 400 mg PO BID 10/31/19 Hydralazine [Apresoline*] 1 tab PO BID 04/27/20 Latanoprost/Pf [Latanoprost 0.005% Eye Drop] 1 drop LEFT EYE BEDTIME 04/27/20 Sevelamer Carbonate 1 tab PO TID 04/27/20 Cefazolin [Cefazolin Sodium*] 1 gm IV DAILY #8 vial 05/09/20 Insulin -Regular Human [Novolin -R*] See Protocol SQ ACHS ml 05/09/20 carvediloL [Coreg*] 25 mg PO BID 6AM 6PM tab 05/09/20 New Medications: Cefazolin [Cefazolin Sodium*] 1 gm IV DAILY #8 vial Patient Discharge Instructions: Hemodialysis on Tuesdays, and Saturdays. Diet: ADA Activity: Fall precautions Followup: Unknown,U [Primary Care Provider] - Time spent managing pt's care (in minutes): 40
[2020-05-09 16:40] VITALS: BP 160/71; TEMP 98.2
== END 2020-05-09 18:41 | DRG 314 ==
LOC: ER 19:10 → ERHOLD 22:09 → 2ND 23:51
PROVIDERS: ADMIT Internal Medicine; ATTEND Internal Medicine
PROC: 30233N1 Transfusion of Nonautologous Red Blood Cells into Peripheral Vein, Percutaneous Approach (ICD-10-PCS; 2020-04-28)
PROC: 5A1D70Z Performance of Urinary Filtration, Intermittent, Less than 6 Hours Per Day (ICD-10-PCS; 2020-05-01)
PROC: 05PY33Z Removal of Infusion Device from Upper Vein, Percutaneous Approach (ICD-10-PCS; principal; 2020-05-02 12:30)
PROC: 0JH63XZ Insertion of Tunneled Vascular Access Device into Chest Subcutaneous Tissue and Fascia, Percutaneous Approach (ICD-10-PCS; 2020-05-06)
PROC: 02HV33Z Insertion of Infusion Device into Superior Vena Cava, Percutaneous Approach (ICD-10-PCS; 2020-05-06)
PROC: B5181ZA Fluoroscopy of Superior Vena Cava using Low Osmolar Contrast, Guidance (ICD-10-PCS; 2020-05-06)
DX: T80.211A Bloodstream infection due to central venous catheter, initial encounter (principal); A41.01 Sepsis due to Methicillin susceptible Staphylococcus aureus; N18.6 End stage renal disease; G93.41 Metabolic encephalopathy; I12.0 Hypertensive chronic kidney disease with stage 5 chronic kidney disease or end stage renal disease; Z68.1 Body mass index [BMI] 19.9 or less, adult; E44.0 Moderate protein-calorie malnutrition; E11.51 Type 2 diabetes mellitus with diabetic peripheral angiopathy without gangrene; E03.9 Hypothyroidism, unspecified; D63.1 Anemia in chronic kidney disease; E87.70 Fluid overload, unspecified; E11.649 Type 2 diabetes mellitus with hypoglycemia without coma; E78.5 Hyperlipidemia, unspecified; E11.22 Type 2 diabetes mellitus with diabetic chronic kidney disease; Z88.5 Allergy status to narcotic agent; Z79.82 Long term (current) use of aspirin; Z79.4 Long term (current) use of insulin; Z79.890 Hormone replacement therapy; Z79.899 Other long term (current) drug therapy; Z86.73 Personal history of transient ischemic attack (TIA), and cerebral infarction without residual deficits; Z99.2 Dependence on renal dialysis; Z74.01 Bed confinement status; Z91.15 Patient's noncompliance with renal dialysis; Z20.828 Contact with and (suspected) exposure to other viral communicable diseases; Z23 Encounter for immunization
CPT/HCPCS: 36415; 36430; 70450; 71045; 76000; 80048; 80069; 80076; 80202; 81003; 81015; 82150; 82550; 82553; 82947; 83605; 83690; 83735; 84100; 84132; 84145; 84484; 85014; 85018; 85025; 85610; 85730; 86850; 86900; 86901; 87040; 87070; 87077; 87186; 87205; 88300; 90471; 90935; 93005; 93306; 96365; 96366; 97116; 97161; 97530; 99285; C1752; J0360; J0690; J1644; J2405; J2704; J3370; J7030; J7040; J7050; P9016; P9047; Q2035; U0003

== ENCOUNTER 2020-08-03 11:49 | Inpatient (IN) | payer OTHER ==
[2020-08-03] MEDS ORDERED: ALTEPLASE 2 MG/VIAL IV ONE (13:00)
--- NOTE | 2020-08-03 16:43 | EDPHYS ---
Physician Documentation [facility] Name: Aury Garcia Age: 80 yrs Sex: Female : 1940 Arrival Date: 08/03/2020 Time: 11:49 Bed 8 Private MD: ED Physician Adalid Arnold HPI: 08/03 12:11 This 80 yrs old Female presents to ER via Wheelchair with complaints of Port jmm Issue. 12:11 The patient has a dialysis catheter in the left subclavian area. Onset: The jmm symptoms/episode began/occurred today. The malfunction was discovered at the dialysis center. Dialysis schedule: . Associated signs and symptoms: Pertinent negatives: fever, swelling, redness in area, bleeding at site. According to [facility] nurse, the line will not work with the dialysis machine. States the line will flush. . Historical: - Allergies: 12:00 Codeine; ll1 12:00 Tramadol HCl; ll1 12:00 Lisinopril; ll1 - PMHx: 12:00 Dementia; Diabetes - IDDM; CVA; chronic kidney disease; Hypertension; Hyperlipidemia; ll1 Hypothyroidism; Dialysis; TIA; - PSHx: 12:00 dialysis port placements; ll1 - Immunization history:: Flu vaccine is not up to date. - Social history:: Smoking status: Patient denies any tobacco usage or history of. ROS: 12:11 Constitutional: Negative for fever, chills, and weight loss, Cardiovascular: Negative jmm for chest pain, palpitations, and edema, Respiratory: Negative for shortness of breath, cough, wheezing, and pleuritic chest pain, Abdomen/GI: Negative for abdominal pain, nausea, vomiting, diarrhea, and constipation, Neuro: Negative for headache, weakness, numbness, tingling, and seizure. 12:11 All other systems are negative. Exam: 12:11 Constitutional: This is a well developed, well nourished patient who is awake, alert, jmm and in no acute distress. Head/Face: atraumatic. Eyes: EOMI, no conjunctival erythema appreciated ENT: Moist Mucus Membranes Neck: Trachea midline, Supple Chest/axilla: Normal chest wall appearance and motion. Cardiovascular: Regular rate and rhythm. No edema appreciated Respiratory: Normal respirations, no respiratory distress appreciated Abdomen/GI: Non distended, soft Back: Normal ROM Skin: General appearance color normal MS/ Extremity: Moves all extremities, no obvious deformities appreciated, no edema noted to the lower extremities Neuro: Awake and alert, normal gait Psych: Behavior is normal, Mood is normal, Patient is cooperative and pleasant Vital Signs: 12:00 BP 212 / 67; Pulse 63; Resp 16; Temp 98.9; Pulse Ox 98% on R/A; Weight 39.01 kg; Pain ll1 0/10; 14:59 BP 227 / 70; Pulse 58; Resp 18; Pulse Ox 100% on R/A; ph 15:30 BP 227 / 72; Pulse 62; Resp 18; Pulse Ox 100% ; sv 16:00 BP 214 / 74; Pulse 58; Resp 18; Pulse Ox 100% ; sv 16:36 BP 202 / 66; Pulse 62; Resp 16; Pulse Ox 100% on R/A; ph 18:01 BP 224 / 61; Pulse 64; Resp 18; Pulse Ox 98% on R/A; ph 19:08 BP 202 / 64; Pulse 68; Resp 18; Temp 97.8; Pulse Ox 98% on R/A; ph MDM: 12:11 Patient medically screened. [facility] 16:42 Data reviewed: vital signs, nurses notes. Counseling: I had a detailed discussion with [facility] the patient and/or guardian regarding: the historical points, exam findings, and any diagnostic results supporting the discharge/admit diagnosis, the need for further work-up and treatment in the hospital. 18:26 Data reviewed: lab test result(s). Counseling: I had a detailed discussion with the [facility] patient and/or guardian regarding:. ED course: . 20:05 ED course: I initially discussed the patient with Dr. Finney whom accepted admission but [facility] recommended discussing the case with Dr. Medrano. I then contacted Dr. Daniel whom wanted to the patient admitted for a tunneled catheter. I then discussed the case with Dr. Medrano for admission. Due to unremarkable labs, advised to follow up outpatient for tunneled catheter. Dr. Medrano arranged a close follow up with gen surgery (Dr. Carvalho) tomorrow for catheter insertion. I discussed this with the family whom agreed with the plan of care. Due to the likelihood the patient would not receive dialysis until Tuesday. I gave the daughter and patient strict return precautions. Whom understood. 08/03 15:15 Order name: CBC with Diff [facility] 08/03 15:15 Order name: BMP [facility] 08/03 17:09 Order name: CBC with Automated Diff; Complete Time: 17:10 EDMS 08/03 17:11 Order name: COVID-19 : Document "Date of Symptom Onset" if Symptomatic. eb 08/03 17:13 Order name: Basic Metabolic Panel; Complete Time: 17:17 EDMS 08/03 17:38 Order name: CORONAVIRUS [facility] 08/03 17:04 Order name: Diet Renal; Complete Time: 17:05 ph 08/03 18:21 Order name: SARS-COV-2 RT PCR; Complete Time: 18:42 EDMS Administered Medications: 14:45 Drug: Cathflo Activase 2 mg Route: IV Thrombolytics; ph 18:43 Follow up: Response: No adverse reaction ph 19:09 Follow up: Response: No adverse reaction ph 19:09 Follow up: Response: No adverse reaction ph 18:43 Drug: Ativan 0.5 mg Route: PO; ph 18:43 Follow up: Response: No adverse reaction ph Disposition: 08/03/20 18:30 Discharged to Home. Impression: Other complication of vascular dialysis catheter. - Condition is Stable. - Discharge Instructions: Dialysis Vascular Access Malfunction. - Medication Reconciliation Form, Thank You Letter, Antibiotic Education, Prescription Opioid Use form. - Follow up: Allen Carvalho MD; When: Tomorrow; Reason: Recheck today's complaints, Continuance of care, Re-evaluation by your physician. - Notes: Please follow up with Dr. Carvalho tomorrow for catheter placement Addendum: 08/08/2020 19:22 Co-signature as Attending Physician, Adalid Arnold MD I agree with the assessment and t w4 plan of care. Signatures: Dispatcher [employer] Doc Sage PA PA jmm Hall, Patricia, RN RN Adalid Davison MD MD tw4 Benny Langston RN RN ll1 Corrections: (The following items were deleted from the chart) 08/03 18:17 16:43 Hospitalization Ordered by Rufino Finney MD for Observation. Preliminary [facility] diagnosis is Other complication of vascular dialysis catheter. Bed requested for Telemetry/MedSurg (observation). Status is Observation. Condition is Stable. Problem is new. Symptoms are unchanged. liz 19:10 18:30 08/03/2020 18:30 Discharged to Home. Impression: Other complication of vascular ph dialysis catheter. Condition is Stable. Forms are Medication Reconciliation Form, Thank You Letter, Antibiotic Education, Prescription Opioid Use. Follow up: Allen Carvalho; When: Tomorrow; Reason: Recheck today's complaints, Continuance of care, Re-evaluation by your physician. liz
--- NOTE | 2020-08-03 16:43 | ER ---
Nurse's Notes [facility] Name: Aury Garcia Age: 80 yrs Sex: Female : 1940 Arrival Date: 08/03/2020 Time: 11:49 Bed 8 Private MD: Diagnosis: Other complication of vascular dialysis catheter Presentation: 08/03 12:00 Chief complaint: Patient states: Dialysis port isn't working right. Last dialysis ll1 . No pain or fever. Coronavirus screen: Client denies travel out of the [place] in the last 14 days. At this time, the client does not indicate any symptoms associated with coronavirus-19. Ebola Screen: Patient denies travel to an Ebola-affected area in the 21 days before illness onset. Initial Sepsis Screen: Does the patient meet any 2 criteria? No. Patient's initial sepsis screen is negative. Does the patient have a suspected source of infection? No. Patient's initial sepsis screen is negative. Risk Assessment: Do you want to hurt yourself or someone else? Patient reports no desire to harm self or others. Onset of symptoms was August 02, 2020. 12:00 Method Of Arrival: Wheelchair ll1 12:00 Acuity: JOSE 3 ll1 Historical: - Allergies: 12:00 Codeine; ll1 12:00 Tramadol HCl; ll1 12:00 Lisinopril; ll1 - PMHx: 12:00 Dementia; Diabetes - IDDM; CVA; chronic kidney disease; Hypertension; Hyperlipidemia; ll1 Hypothyroidism; Dialysis; TIA; - PSHx: 12:00 dialysis port placements; ll1 - Immunization history:: Flu vaccine is not up to date. - Social history:: Smoking status: Patient denies any tobacco usage or history of. Screenin:59 Abuse screen: Denies threats or abuse. Denies injuries from another. Nutritional ph screening: No deficits noted. Tuberculosis screening: No symptoms or risk factors identified. Fall Risk None identified. Assessment: 14:56 Reassessment: Cath eileen administered to both ports of Efrain catheter, flushed in ph easily w/ no resistance noted. General: Appears in no apparent distress. comfortable, slender, Behavior is calm, cooperative, appropriate for age. Pain: Denies pain. Neuro: Level of Consciousness is awake, alert, obeys commands, Oriented to person, place, time, situation. Cardiovascular: Capillary refill < 3 seconds in bilateral fingers Patient's skin is warm and dry. Dialysis shunt: in the anterior aspect of left upper chest. Respiratory: Airway is patent Respiratory effort is even, unlabored, Respiratory pattern is regular, symmetrical. GI: No signs and/or symptoms were reported involving the gastrointestinal system. Derm: Skin is fragile, is thin, Skin is pink, warm \T\ dry. Musculoskeletal: Circulation, motion, and sensation intact. Range of motion: intact in all extremities. 15:45 Reassessment: Patient appears in no apparent distress at this time. Patient and/or ph family updated on plan of care and expected duration. Pain level reassessed. Patient is alert, oriented x 3, equal unlabored respirations, skin warm/dry/pink. Cath eileen aspirated from Efrain catheter w/ no difficulty, blood aspirated from both ports w/ no difficulty, both ports flushed w/ 20 Ml NS w/ no difficulty, ERP notified. 16:36 Reassessment: Patient appears in no apparent distress at this time. Patient and/or ph family updated on plan of care and expected duration. Pain level reassessed. Patient is alert, oriented x 3, equal unlabored respirations, skin warm/dry/pink. 17:56 Reassessment: Patient appears in no apparent distress at this time. Patient and/or ph family updated on plan of care and expected duration. Pain level reassessed. Patient is alert, oriented x 3, equal unlabored respirations, skin warm/dry/pink. 18:35 Reassessment: Patient appears in no apparent distress at this time. Patient and/or ph family updated on plan of care and expected duration. Pain level reassessed. Pt agitated, cursing at daughter, daughter reports that she becomes irritated at night, PO Ativan ordered. Vital Signs: 12:00 BP 212 / 67; Pulse 63; Resp 16; Temp 98.9; Pulse Ox 98% on R/A; Weight 39.01 kg; Pain ll1 0/10; 14:59 BP 227 / 70; Pulse 58; Resp 18; Pulse Ox 100% on R/A; ph 15:30 BP 227 / 72; Pulse 62; Resp 18; Pulse Ox 100% ; sv 16:00 BP 214 / 74; Pulse 58; Resp 18; Pulse Ox 100% ; sv 16:36 BP 202 / 66; Pulse 62; Resp 16; Pulse Ox 100% on R/A; ph 18:01 BP 224 / 61; Pulse 64; Resp 18; Pulse Ox 98% on R/A; ph 19:08 BP 202 / 64; Pulse 68; Resp 18; Temp 97.8; Pulse Ox 98% on R/A; ph ED Course: 11:49 Patient arrived in ED. ds1 11:58 Arm band placed on Patient placed in an exam room, on a stretcher. ll1 12:01 Triage completed. ll1 12:05 Saranya Washington, CRESCENCIO is Primary Nurse. ph 12:10 Doc Sullivan PA is PHCP. jmm 12:10 Adalid Arnold MD is Attending Physician. jmm 14:59 Patient has correct armband on for positive identification. Placed in gown. Bed in low ph position. Call light in reach. Side rails up X2. Pulse ox on. NIBP on. Door closed. Noise minimized. Warm blanket given. 16:00 Missed attempt(s): 22 gauge in right antecubital area. Bleeding controlled, band aid dh3 applied, catheter tip intact. 16:23 No provider procedures requiring assistance completed. ph 16:36 Initial lab(s) drawn, by me, held in ED. Missed attempt(s): 24 gauge in right ph antecubital area. Bleeding controlled, band aid applied, catheter tip intact. 16:42 Rufino Finney MD is Hospitalizing Provider. jmm 17:25 Inserted saline lock: 22 gauge in left antecubital area, using aseptic technique. hb 18:29 Allen Carvalho MD is Referral Physician. jmm 19:08 IV discontinued, intact, bleeding controlled, No redness/swelling at site. Pressure ph dressing applied. Administered Medications: 14:45 Drug: Cathflo Activase 2 mg Route: IV Thrombolytics; ph 18:43 Follow up: Response: No adverse reaction ph 19:09 Follow up: Response: No adverse reaction ph 19:09 Follow up: Response: No adverse reaction ph 18:43 Drug: Ativan 0.5 mg Route: PO; ph 18:43 Follow up: Response: No adverse reaction ph Outcome: 16:43 Decision to Hospitalize by Provider. jmm 18:30 Discharge ordered by MD. hill 19:05 Discharged to home via wheelchair, with family. ph 19:05 Condition: good 19:05 Discharge instructions given to family, Instructed on discharge instructions, follow up and referral plans. Demonstrated understanding of instructions, follow-up care. 19:10 Patient left the ED. ph Signatures: Brandy Cheema, RN RN Doc Vale PA PA jmm Sanford, Demi ds1 Saranya Washington RN RN Joanna Vega RN RN Alyssa Silva 3 Benny Langston RN RN ll1
[2020-08-03 16:46] LABS: Absolute Lymphocytes (CBC) 0.9 K/uL (0.7-4.9); Hematocrit 38.5 % (36.0-45.0); Lymphocytes % 21.3 % (15.3-44.8); MPV 9.4 fL (7.6-11.3); RBC Red Blood Cell Count 4.24 M/uL (3.86-4.86)
[2020-08-03] MEDS ORDERED: ONDANSETRON 4 MG/2 ML VIAL IV PRN (17:00)
[2020-08-03] MEDS ORDERED: ACETAMINOPHEN 500 MG TAB PO PRN (17:00)
[2020-08-03] MEDS ORDERED: MORPHINE 2 MG/ML SYR IV PRN (17:00)
--- NOTE | 2020-08-03 17:11 | P.HP ---
Certification for Inpatient Patient admitted to: Observation With expected LOS: <2 Midnights Patient will require the following post-hospital care: None Practitioner: I am a practitioner with admitting privileges, knowledge of patient current condition, hospital course, and medical plan of care. Services: Services provided to patient in accordance with Admission requirements found in Title 42 Section 412.3 of the Code of Federal Regulations Patient History Date of Service: 08/03/20 Reason for admission: DIALYSIS PORT IS NOT WORKING WELL History of Present Illness: Patient is a 80-year-old female who presents to the hospital because of dialysis port is not working properly. She was sent in by her dialysis nurse. She gets dialyzed by the [facility]. She was admitted to the hospital to see if patient can get dialyzed today. We may need to work on the dialysis catheter. If it is not functioning properly after our dialysis nurse works with med that we may need to get general surgery consultation to change the dialysis catheter over a guidewire. Or she may need complete replacement. At this time patient is not safe to go home because she may get volume overloaded as she is already missed her 2nd dialysis appointment which would of been today. Close monitoring will be continued and we will diurese her if she can tolerate it with Lasix. Allergies codeine Allergy (Intermediate, Verified 04/27/20 00:35) Itching/Hives/Rash Home Medications: Aspirin 81 mg PO DAILY 10/31/19 Atorvastatin Calcium [Lipitor*] 20 mg PO BEDTIME 10/31/19 Levothyroxine Sodium 50 mcg PO DAILY 10/31/19 Pantoprazole [Protonix Tab*] 40 mg PO DAILY 10/31/19 Pentoxifylline 400 mg PO BID 10/31/19 Hydralazine [Apresoline*] 1 tab PO BID 04/27/20 Latanoprost/Pf [Latanoprost 0.005% Eye Drop] 1 drop LEFT EYE BEDTIME 04/27/20 Sevelamer Carbonate 1 tab PO TID 04/27/20 Cefazolin [Cefazolin Sodium*] 1 gm IV DAILY #8 vial 05/09/20 Insulin -Regular Human [Novolin -R*] See Protocol SQ ACHS ml 05/09/20 carvediloL [Coreg*] 25 mg PO BID 6AM 6PM tab 05/09/20 - Past Medical/Surgical History Diabetic: Yes -: HTN,IDDM,CVA -: kidney failure -: PNE -: hx of left lower leg wound-healed -: ESRD -: HLD -: LEFT EYE CATARACT -: HYPOTHYROIDISM -: HD ACCESS RIGHT SUBCLAVIAN -: BROKEN HIP-SON UNABLE TO RECALL WHICH HIP -: HD ACCESS PLACEMENT - Family History Mother Medical History: Heart disease - Social History Alcohol use: No CD- Drugs: No Caffeine use: No Review of Systems 10-point ROS is otherwise unremarkable Physical Examination - Vital Signs Temperature: 98 F Blood Pressure: 150/90 Pulse: 80 Respirations: 18 - Physical Exam General: Alert, In no apparent distress HEENT: Atraumatic, PERRLA, Mucous membr. moist/pink, EOMI, Sclerae nonicteric Neck: Supple, 2+ carotid pulse no bruit, No LAD, Without JVD or thyroid abnormality Respiratory: Clear to auscultation bilaterally, Normal air movement Cardiovascular: Regular rate/rhythm, Normal S1 S2, No murmurs Gastrointestinal: Normal bowel sounds, Soft and benign, Non-distended, No tenderness Musculoskeletal: No clubbing, No swelling, No tenderness Integumentary: No rashes Neurological: Normal gait, Normal speech, Normal strength at 5/5 x4 extr, Normal tone, Sensation intact, Cranial nerves 3-12 intact, Normal affect Lymphatics: No axilla or inguinal lymphadenopathy Assessment & Plan - Problems (Diagnosis) (1) Complication of vascular access for dialysis Current Visit: Yes Status: Acute (2) ESRD (end stage renal disease) on dialysis Current Visit: No Status: Acute (3) Hypertension Current Visit: No Status: Acute - Plan Plan: 1. Patient will proceed with hemodialysis during hospital stay. If patient is able to get dialysis without any issues and patient should be stable for discharge in 24 hr. However, if patient is not able to get dialyzed because the dialysis access catheter is not functioning then patient may need to be admitted and the dialysis access catheter may need to get changed. Will need to monitor patient closely for volume overload issues. Continue monitoring blood pressure and blood sugars closely. No additional treatment is needed at this ti me. We will admit the patient for observation status. Discharge Plan: Home Plan to discharge in: 24 Hours - Advance Directives Does patient have a Living Will: No Does patient have a Durable POA for Healthcare: Yes - Code Status/Comfort Care Code Status Assessed: Yes Code Status: Full Code Critical Care: No Time Spent Managing PTS Care (In Minutes): 45
[2020-08-03 17:13] LABS: Potassium 3.6 mmol/L (3.5-5.1)
[2020-08-03] MEDS ORDERED: LORAZEPAM 0.5 MG TABLET ONE (18:46)
[2020-08-03 19:25] VITALS: O2SAT 98
[2020-08-03 19:26] VITALS: BP 202/64; TEMP 97.8
[2020-08-04] MEDS ORDERED: HYDRALAZINE HCL 20 MG/ML VIAL IV PRN (00:42)
[2020-08-04] MEDS ORDERED: carvediloL 25 MG TAB PO SCH (06:00)
[2020-08-04] MEDS ORDERED: SEVELAMER CARBONATE 800 MG TABLET PO SCH (08:00)
[2020-08-04] MEDS ORDERED: PANTOPRAZOLE 40MG TABLET PO SCH (09:00)
[2020-08-04] MEDS ORDERED: HYDRALAZINE HCL 25 MG TABLET PO SCH (09:00)
[2020-08-04] MEDS ORDERED: LEVOTHYROXINE SOD 0.025 MG TAB PO SCH (09:00)
[2020-08-04] MEDS ORDERED: ATORVASTATIN 20 MG TAB PO SCH (21:00)
== END 2020-08-03 19:10 | disposition home or self-care (01) | DRG 698 ==
LOC: ER 11:49 → ERHOLD 17:20
PROVIDERS: ADMIT Hospitalist; ATTEND Family Medicine
DX: T82.41XA Breakdown (mechanical) of vascular dialysis catheter, initial encounter (principal); N18.6 End stage renal disease; I12.0 Hypertensive chronic kidney disease with stage 5 chronic kidney disease or end stage renal disease; E11.22 Type 2 diabetes mellitus with diabetic chronic kidney disease; E78.5 Hyperlipidemia, unspecified; E03.9 Hypothyroidism, unspecified; Z88.5 Allergy status to narcotic agent; Z79.82 Long term (current) use of aspirin; Z79.4 Long term (current) use of insulin; Z79.890 Hormone replacement therapy; Z86.73 Personal history of transient ischemic attack (TIA), and cerebral infarction without residual deficits; Z20.822 Contact with and (suspected) exposure to COVID-19
CPT/HCPCS: 36415; 80048; 85025; 92977; 99291; 99292; J2997; U0003

== ENCOUNTER 2020-08-05 11:21 | Observation (INO) | payer OTHER ==
[2020-08-05 14:53] LABS: Basophils % 1.4 % (0-1.3); Hematocrit 40.4 % (36.0-45.0); Lymphocytes % 18.4 % (15.3-44.8); MPV 10.1 fL (7.6-11.3); RBC Red Blood Cell Count 4.46 M/uL (3.86-4.86)
[2020-08-05 16:41] LABS: Protime INR 1.03
[2020-08-05 17:04] LABS: ALT/SGPT 14 U/L (12-78); AST/SGOT 13 U/L (15-37); Albumin 3.2 g/dL (3.4-5.0); Alkaline Phosphatase 69 U/L (45-117); BUN Blood Urea Nitrogen 95 mg/dL (7-18); Bicarbonate 20 mmol/L (21-32); Bilirubin Direct < 0.1 mg/dL (0-0.2); Bilirubin Total 0.3 mg/dL (0.2-1.0); Glucose Level 105 mg/dL (74-106); Magnesium 2.8 mg/dL (1.8-2.4); Potassium 3.9 mmol/L (3.5-5.1); Protein, Total 7.5 g/dL (6.4-8.2); Sodium Level 142 mmol/L (136-145); Troponin (Emerg Dept Use Only) 0.03 ng/mL (0.0-0.045)
[2020-08-05 17:18] LABS: NT PRO-BNP 43346 pg/mL (<450)
--- NOTE | 2020-08-05 17:58 | EDPHYS ---
Physician Documentation [facility] Name: Aury Garcia Age: 80 yrs Sex: Female : 1940 Arrival Date: 08/05/2020 Time: 11:23 Bed 13 Private MD: ED Physician Rahat Alexander HPI: 08/05 14:24 This 80 yrs old Female presents to ER via Wheelchair with complaints of [facility] malfunctioning dialysis catheter. 14:24 The patient has not experienced similar symptoms in the past. This is a 80 year old jmm female with a history of ESRD that presents to the ED with complaints of malfunctioning dialysis catheter. Last dialysis this . Patient denies shortness of breath, edema, chest pain, abdominal pain. . 14:24 Patient attempted to get outpatient access performed but unable due to weather [facility] conditions. . Historical: - Allergies: 11:45 Codeine; iw 11:45 Lisinopril; iw 11:45 Tramadol HCl; iw - Home Meds: 11:45 aspirin 81 mg Oral TbEC 1 tab once daily [Active]; atorvastatin 20 mg Oral tab 1 tab iw once daily [Active]; carvedilol 12.5 mg Oral tab 1 tab every 12 hours [Active]; hydralazine 25 mg Oral tab 1 tab 2 times per day [Active]; latanoprost 0.005 % ophthalmic drop 1 drop once daily [Active]; levothyroxine 50 mcg tab 1 tab once daily [Active]; Novolog 100 unit/mL Sub-Q soln 5 unit [Active]; pantoprazole 40 mg Oral TbEC 1 tab once daily [Active]; pentoxifylline 400 mg Oral TbER 1 tab 2 times per day [Active]; sevelamer carbonate 800 mg Oral tab 1 tab 3 times per day [Active]; - PMHx: 11:45 chronic kidney disease; CVA; Dementia; Diabetes - IDDM; Dialysis; Hyperlipidemia; iw Hypertension; Hypothyroidism; TIA; - Immunization history:: Adult Immunizations unknown. - Social history:: Smoking status: unknown. ROS: 14:24 Constitutional: Negative for fever, chills, and weight loss, Cardiovascular: Negative [facility] for chest pain, palpitations, and edema, Respiratory: Negative for shortness of breath, cough, wheezing, and pleuritic chest pain, Neuro: Negative for headache, weakness, numbness, tingling, and seizure. 14:24 All other systems are negative. Exam: 14:24 Constitutional: This is a well developed, well nourished patient who is awake, alert, jmm and in no acute distress. Head/Face: atraumatic. Eyes: EOMI, no conjunctival erythema appreciated ENT: Moist Mucus Membranes Neck: Trachea midline, Supple Chest/axilla: Normal chest wall appearance and motion. Cardiovascular: Regular rate and rhythm. No edema appreciated Respiratory: Normal respirations, no respiratory distress appreciated Abdomen/GI: Non distended, soft Back: Normal ROM Skin: General appearance color normal MS/ Extremity: Moves all extremities, no obvious deformities appreciated, no edema noted to the lower extremities 14:24 Neuro: Motor: is normal. 14:24 Psych: Behavior/mood is pleasant, cooperative. Vital Signs: 11:43 BP 112 / 63; Pulse 63; Resp 16; Temp 98.6; Pulse Ox 99% on R/A; iw 16:45 BP 119 / 69; Pulse 64; Resp 16; Pulse Ox 99% on R/A; zb 17:46 BP 204 / 70; Pulse 68; Resp 16; Pulse Ox 98% on R/A; zb 18:52 BP 158 / 93; zb 20:30 BP 195 / 72; Pulse 66; Resp 18; Pulse Ox 97% on R/A; zb 21:30 BP 177 / 65; Pulse 69; Resp 16; Pulse Ox 97% on R/A; zb 22:44 BP 139 / 50; Pulse 63; Resp 16; Pulse Ox 97% on R/A; zb MDM: 14:57 Patient medically screened. [facility] 17:55 Data reviewed: vital signs, nurses notes. Counseling: I had a detailed discussion with liz the patient and/or guardian regarding: the historical points, exam findings, and any diagnostic results supporting the discharge/admit diagnosis, lab results, radiology results, the need for further work-up and treatment in the hospital. ED course: I discussed the patient with NAJMA Evangelista whom a accepted the patient to Dr. Leon's service. . 08/05 12:44 Order name: Basic Metabolic Panel tonie 08/05 12:44 Order name: CBC with Diff [facility] 08/05 12:44 Order name: LFT's; Complete Time: 17:21 tonie 08/05 12:44 Order name: Magnesium; Complete Time: 17:21 [facility] 08/05 12:44 Order name: NT PRO-BNP; Complete Time: 17:21 [facility] 08/05 12:44 Order name: PT-INR; Complete Time: 16:55 [facility] 08/05 12:44 Order name: Troponin (emerg Dept Use Only); Complete Time: 17:21 [facility] 08/05 12:44 Order name: Basic Metabolic Panel; Complete Time: 17:21 EDMS 08/05 12:44 Order name: CBC with Automated Diff; Complete Time: 14:58 EDMS 08/05 23:45 Order name: Glucose, Ancillary Testing; Complete Time: 00:05 EDMS 08/06 00:35 Order name: Glucose, Ancillary Testing; Complete Time: 13:49 EDMS 08/06 09:04 Order name: Glucose, Ancillary Testing; Complete Time: 13:49 EDMS 08/06 09:58 Order name: Comprehensive Metabolic Panel; Complete Time: 13:49 EDMS 08/06 11:13 Order name: Glucose, Ancillary Testing; Complete Time: 13:49 EDMS 08/05 12:44 Order name: XRAY Chest (1 view); Complete Time: 13:49 [facility] 08/05 12:44 Order name: EKG; Complete Time: 12:44 [facility] 08/05 12:44 Order name: Cardiac monitoring; Complete Time: 17:11 [facility] 08/05 12:44 Order name: EKG - Nurse/Tech; Complete Time: 17:11 [facility] 08/05 12:44 Order name: IV Saline Lock; Complete Time: 17:12 [facility] 08/05 12:44 Order name: Labs collected and sent; Complete Time: 17:12 [facility] 08/05 12:44 Order name: O2 Per Protocol; Complete Time: 17:12 [facility] 08/05 12:44 Order name: O2 Sat Monitoring; Complete Time: 17:12 [facility] 08/06 10:37 Order name: RAD; Complete Time: 13:49 EDMS 08/06 11:14 Order name: RAD; Complete Time: 13:49 EDMS 08/07 06:39 Order name: Basic Metabolic Panel EDMS 08/07 06:39 Order name: Phosphorus EDMS 08/07 06:39 Order name: Magnesium EDMS 08/07 07:30 Order name: Glucose, Ancillary Testing EDMS 08/07 11:45 Order name: Glucose, Ancillary Testing EDMS Administered Medications: No medications were administered Disposition: 08/08 05:42 Co-signature as Attending Physician, Rahat Alexander MD I agree with the assessment and [facility] plan of care. Disposition: 08/05/20 17:57 Hospitalization ordered by Dominick Leon for Inpatient Admission. Preliminary diagnosis is Other complication of vascular dialysis catheter. - Bed requested for Telemetry/MedSurg (Inpatient). - Status is Inpatient Admission. tw2 - Condition is Stable. - Problem is new. - Symptoms are unchanged. Signatures: Dispatcher [employer] EDCA Rahat Alexander MD MD cha Mickail, Joel, PA PA [facility] Nasima Garcia, RN RN Teetee Brian RN RN tl1 Rose Serrano RN RN tw2 Reuben Feliz RN RN ja1 Rica Sanchez RN RN zb Corrections: (The following items were deleted from the chart) 08/05 21:02 17:57 Hospitalization Ordered by Dominick Leon MD for Inpatient Admission. Preliminary tl1 diagnosis is Other complication of vascular dialysis catheter. Bed requested for Telemetry/MedSurg (Inpatient). Status is Inpatient Admission. Condition is Stable. Problem is new. Symptoms are unchanged. [facility] 08/07 15:05 08/05 21:02 08/05/2020 17:57 Hospitalization Ordered by Dominick Leon MD for Inpatient ja1 Admission. Preliminary diagnosis is Other complication of vascular dialysis catheter. Bed requested for [facility] ER HOLD. Status is Inpatient Admission. Condition is Stable. Problem is new. Symptoms are unchanged. [facility] 08/07 15:26 15:05 08/05/2020 17:57 Hospitalization Ordered by Dominick Leon MD for Inpatient ja1 Admission. Preliminary diagnosis is Other complication of vascular dialysis catheter. Bed requested for Telemetry/MedSurg (Inpatient). Status is Inpatient Admission. Condition is Stable. Problem is new. Symptoms are unchanged. ja1 17: 15:26 08/05/2020 17:57 Hospitalization Ordered by Dominick Leon MD for Inpatient tw2 Admission. Preliminary diagnosis is Other complication of vascular dialysis catheter. Bed requested for Telemetry/MedSurg (Inpatient). Status is Inpatient Admission. Condition is Stable. Problem is new. Symptoms are unchanged. ja
--- NOTE | 2020-08-05 17:58 | ER ---
Nurse's Notes [facility] Name: Aury Garcia Age: 80 yrs Sex: Female : 1940 Arrival Date: 08/05/2020 Time: 11:23 Bed 13 Private MD: Diagnosis: Other complication of vascular dialysis catheter Presentation: 08/05 11:43 Chief complaint: Patient states: was sent by Dr. Carvalho for Efrain placement, needs iw revision of Av fistula and needs in house dialysis. Coronavirus screen: At this time, the client does not indicate any symptoms associated with coronavirus-19. Ebola Screen: Patient negative for fever greater than or equal to 101.5 degrees Fahrenheit, and additional compatible Ebola Virus Disease symptoms Patient denies exposure to infectious person. Patient denies travel to an Ebola-affected area in the 21 days before illness onset. No symptoms or risks identified at this time. Initial Sepsis Screen: Does the patient meet any 2 criteria? No. Patient's initial sepsis screen is negative. Does the patient have a suspected source of infection? No. Patient's initial sepsis screen is negative. Risk Assessment: Do you want to hurt yourself or someone else? Patient reports no desire to harm self or others. Onset of symptoms was August 05, 2020. 11:43 Method Of Arrival: Wheelchair iw 11:43 Acuity: JOSE 3 iw Historical: - Allergies: 11:45 Codeine; iw 11:45 Lisinopril; iw 11:45 Tramadol HCl; iw - Home Meds: 11:45 aspirin 81 mg Oral TbEC 1 tab once daily [Active]; atorvastatin 20 mg Oral tab 1 tab iw once daily [Active]; carvedilol 12.5 mg Oral tab 1 tab every 12 hours [Active]; hydralazine 25 mg Oral tab 1 tab 2 times per day [Active]; latanoprost 0.005 % ophthalmic drop 1 drop once daily [Active]; levothyroxine 50 mcg tab 1 tab once daily [Active]; Novolog 100 unit/mL Sub-Q soln 5 unit [Active]; pantoprazole 40 mg Oral TbEC 1 tab once daily [Active]; pentoxifylline 400 mg Oral TbER 1 tab 2 times per day [Active]; sevelamer carbonate 800 mg Oral tab 1 tab 3 times per day [Active]; - PMHx: 11:45 chronic kidney disease; CVA; Dementia; Diabetes - IDDM; Dialysis; Hyperlipidemia; iw Hypertension; Hypothyroidism; TIA; - Immunization history:: Adult Immunizations unknown. - Social history:: Smoking status: unknown. Screenin:30 Abuse screen: Denies threats or abuse. Denies injuries from another. Nutritional zb screening: No deficits noted. Tuberculosis screening: No symptoms or risk factors identified. Fall Risk Fall in past 12 months (25 points). Secondary diagnosis (15 points) impaired mobility, CVA, IV access (20 points). Ambulatory Aid- Crutches/Cane/Walker (15 pts). Gait- Normal/Bed Rest/Wheelchair (0 pts) Mental Status- Oriented to own ability (0 pts). Total Calvillo Fall Scale indicates High Risk Score (45 or more points). Fall prevention measures have been instituted. Side Rails Up X 2 Placed Close to Nursing Station Frequent Obs/Assessments Occuring As available patient and family educated on Fall Prevention Program and Strategies. Assessment: 16:30 General: Appears in no apparent distress. comfortable, Behavior is calm, cooperative, zb appropriate for age. Pain: Complains of pain in right foot and left foot Pain currently is 0 out of 10 on a pain scale. at worst was 6 out of 10 on a pain scale. Quality of pain is described as tender. Neuro: Level of Consciousness is awake, alert, obeys commands, Oriented to person, place, time, situation. Cardiovascular: Heart tones S1 S2 present Capillary refill < 3 seconds Patient's skin is warm and dry. Respiratory: Airway is patent Respiratory effort is even, unlabored, Respiratory pattern is regular, symmetrical. Respiratory: Breath sounds are clear bilaterally. GI: Abdomen is round non-distended. GI: Bowel sounds present X 4 quads. : No signs and/or symptoms were reported regarding the genitourinary system. EENT: No signs and/or symptoms were reported regarding the EENT system. Derm: Skin is intact, is fragile, is thin. Musculoskeletal: Range of motion: intact in all extremities. 17:41 Reassessment: Patient appears in no apparent distress at this time. Patient and/or zb family updated on plan of care and expected duration. Pain level reassessed. Patient is alert, oriented x 3, equal unlabored respirations, skin warm/dry/pink. blood pressure elevated notified ECP. pt asymptomatic. Vital Signs: 11:43 BP 112 / 63; Pulse 63; Resp 16; Temp 98.6; Pulse Ox 99% on R/A; iw 16:45 BP 119 / 69; Pulse 64; Resp 16; Pulse Ox 99% on R/A; zb 17:46 BP 204 / 70; Pulse 68; Resp 16; Pulse Ox 98% on R/A; zb 18:52 BP 158 / 93; zb 20:30 BP 195 / 72; Pulse 66; Resp 18; Pulse Ox 97% on R/A; zb 21:30 BP 177 / 65; Pulse 69; Resp 16; Pulse Ox 97% on R/A; zb 22:44 BP 139 / 50; Pulse 63; Resp 16; Pulse Ox 97% on R/A; zb ED Course: 11:23 Patient arrived in ED. rg4 11:44 Triage completed. iw 11:45 Arm band placed on. iw 12:42 Rahat Alexander MD is Attending Physician. tonie 13:23 Doc Sullivan PA is PHCP. jmm 13:27 XRAY Chest (1 view) In Process Unspecified. EDMS 13:28 Doc Sullivan PA is PHCP. jmm 14:35 Inserted saline lock: 22 gauge in left antecubital area, using aseptic technique. Blood kj1 collected. 16:27 Rica Sanchez, RN is Primary Nurse. zb 17:11 Patient has correct armband on for positive identification. transportation modeler on. Pulse zb ox on. NIBP on. Door closed. Noise minimized. Warm blanket given. 17:56 Dominick Leon MD is Hospitalizing Provider. [facility] 08/06 04:27 No provider procedures requiring assistance completed. Patient admitted, IV remains in em place. 07:23 Primary Nurse role handed off by Rica Sanchez RN jl7 07:23 Artur Bryant, CRESCENCIO is Primary Nurse. catherine 08:21 Primary Nurse role handed off by Artur Bryant, CRESCENCIO 12:30 Artur Bryant, RN is Primary Nurse. jl7 Administered Medications: No medications were administered Outcome: 08/05 17:57 Decision to Hospitalize by Provider. [facility] 08/06 04:27 Admitted to ER Hold. Please see [facility] for further documentation. em Condition: stable Instructed on the need for admit. 08/07 17:16 Patient left the ED. tw2 Signatures: Dispatcher [employer] Kavya Tracy Corey, MD MD cha Mickail, Joel, PA PA jmm Munoz, Edgar, RN RN Nasima Maher RN CRESCENCIO iw Rose Serrano RN RN tw2 Arlette Perdomo rg4 Artur Bryant RN RN jl7 Ileana Patrick kj1 Rica Sanchez RN RN zb Corrections: (The following items were deleted from the chart) 08/05 17:47 17:41 Reassessment: Patient appears in no apparent distress at this time. Patient zb and/or family updated on plan of care and expected duration. Pain level reassessed. Patient is alert, oriented x 3, equal unlabored respirations, skin warm/dry/pink. blood pressure elevated notified ECP. zb
--- NOTE | 2020-08-05 18:51 | P.HP ---
Certification for Inpatient Patient admitted to: Observation With expected LOS: <2 Midnights <Deangelo Torres - Last Filed: 08/05/20 18:43> Patient History Date of Service: 08/05/20 Primary Care Provider: Unknown Reason for admission: Dilaysis catheter complication History of Present Illness: 72-year-old female with history of diabetes mellitus type 2, hypertension, ESRD on HD presents emergency department for hemodialysis catheter complication. Patient's dialysis catheter to the left anterior chest wall apparently not functioning appropriately, unable to receive dialysis for the past 1 week. Labs unremarkable in emergency department potassium 3.9 but patient hypertensive blood pressure 208 systolic. Case was discussed with General Surgery and Nephrology, plan for admission with replacement dialysis catheter tomorrow followed by dialysis, likely discharge after this if patient remains stable. - Past Medical/Surgical History Diabetic: Yes -: HTN,IDDM,CVA -: PNE -: hx of left lower leg wound-healed -: ESRD -: HLD -: LEFT EYE CATARACT -: HYPOTHYROIDISM -: HD ACCESS RIGHT SUBCLAVIAN -: BROKEN HIP-SON UNABLE TO RECALL WHICH HIP -: HD ACCESS PLACEMENT Psychosocial/ Personal History: Patient lives with her daughter - Family History Mother -: Heart disease - Social History Smoking Status: Unknown if ever smoked Alcohol use: No CD- Drugs: No Caffeine use: No Place of Residence: Home <Deangelo Torres - Last Filed: 08/05/20 18:43> Date of Service: 08/14/20 <Dominick Leon - Last Filed: 08/14/20 13:39> Allergies codeine Allergy (Intermediate, Verified 04/27/20 00:35) Itching/Hives/Rash Home Medications: RX: Aspirin 81 mg PO DAILY 10/31/19 RX: Atorvastatin Calcium [Lipitor*] 20 mg PO BEDTIME 10/31/19 RX: Levothyroxine Sodium 50 mcg PO DAILY 10/31/19 RX: Pantoprazole [Protonix Tab*] 40 mg PO DAILY 10/31/19 RX: Pentoxifylline 400 mg PO BID 10/31/19 RX: Hydralazine [Apresoline*] 50 mg PO BID 04/27/20 RX: Latanoprost/Pf [Latanoprost 0.005% Eye Drop] 1 drop LEFT EYE BEDTIME 04/27/20 RX: Sevelamer Carbonate 1 tab PO TID 04/27/20 RX: Insulin -Regular Human [Novolin -R*] See Protocol SQ ACHS ml 05/09/20 RX: carvediloL [Carvedilol] 1 tab PO BID 08/06/20 Review of Systems Unremarkable <Deangelo Torres - Last Filed: 08/05/20 18:43> Physical Examination - Physical Exam General: Alert, In no apparent distress HEENT: Atraumatic, PERRLA, Mucous membr. moist/pink Neck: Supple, 2+ carotid pulse no bruit, No LAD Respiratory: Clear to auscultation bilaterally, Normal air movement Cardiovascular: Regular rate/rhythm, Normal S1 S2 Gastrointestinal: Normal bowel sounds, No tenderness Musculoskeletal: No tenderness Integumentary: No rashes Neurological: Normal speech, Normal strength at 5/5 x4 extr, Normal tone, Normal affect Urinary: Dialysis catheter - Studies Laboratory Data (last 24 hrs) 08/05/20 16:24: PT 11.9, INR 1.03 08/05/20 16:24: Sodium 142, Potassium 3.9, BUN 95 H, Creatinine 5.35 H*, Glucose 105, Magnesium 2.8 H D, Total Bilirubin 0.3, AST 13 L, ALT 14, Alkaline Phosphatase 69 08/05/20 14:32: WBC 5.20 D, Hgb 12.9, Hct 40.4, Plt Count 216 D <Deangelo Torres - Last Filed: 08/05/20 18:43> Assessment and Plan - Plan Assessment ESRD on HD with dialysis catheter complication and volume overload Diabetes mellitus type 2 Hypertension, hyperlipidemia Plan ESRD on HD with dialysis catheter complication and volume overload: Patient reportedly makes some urine, will diurese with Lasix. Plan for dialysis catheter placement tomorrow with General Surgery, NPO after midnight. The patient receive dialysis catheter and is able to have dialysis tomorrow can likely be discharged after this. SCDs for DVT prophylaxis. Daily labs. Diabetes mellitus type 2: A.c. HS Accu-Cheks, sliding scale insulin therapy. Hypertension, hyperlipidemia: Continue home meds. Discharge Plan: Home Plan to discharge in: 24 Hours - Advance Directives Does patient have a Living Will: No Does patient have a Durable POA for Healthcare: Yes - Code Status/Comfort Care Code Status Assessed: Yes (Full code) Critical Care: No Time Spent Managing Pts Care (In Minutes): 55 <Deangelo Torres - Last Filed: 08/05/20 18:43> - Plan Plan of care reviewed and agree as noted above by Deangelo Torres. ESRD on HD with volume overload and nonfunctioning dialysis catheter. General Surgery consulted. <Dominick Leon - Last Filed: 08/14/20 13:39>
[2020-08-05] MEDS ORDERED: FUROSEMIDE 40 MG/4 ML VIAL IV ONE (22:35)
[2020-08-05] MEDS: INSULIN -REGULAR HUMAN 50 UNIT/0.5 ML ML SQ SCH (22:35)
[2020-08-05] MEDS ORDERED: ONDANSETRON 4 MG/2 ML VIAL IV PRN (22:35)
[2020-08-05] MEDS ORDERED: D50W 25 GM/50 ML SYRINGE IV PRN (23:47)
[2020-08-05] MEDS ORDERED: D5 0.45 NS 0 ML IV ONE (23:54)
[2020-08-05] MEDS ORDERED: D50W 50 ML IV ONE (23:56)
[2020-08-06 04:19] VITALS: BMI 20.1
[2020-08-06] MEDS: LEVOTHYROXINE SOD 0.05 MG TABLET PO SCH (06:30)
--- NOTE | 2020-08-06 07:27 | RAD REPORT ---
EXAM DESCRIPTION: Asim Single View08/05/2020 2:59 pm CLINICAL HISTORY: Cough COMPARISON: 2019 FINDINGS: The lungs appear clear of acute infiltrate. The heart is mildly enlarged Central venous catheter has its tip in the superior vena cava pointing cranially
[2020-08-06] MEDS: INSULIN -REGULAR HUMAN 50 UNIT/0.5 ML ML SQ SCH ×4 (07:30→22:40)
[2020-08-06] MEDS ORDERED: NS 0.9% VIAL 10 ML ONE (08:15)
[2020-08-06] MEDS ORDERED: NA CHLORIDE 0.9% 100 ML IV ONE (08:16)
[2020-08-06] MEDS: BUPIVACA 0.25%/EPI 0.0005% MDV 50 ML VIAL ONE ×2 (08:28→09:39)
[2020-08-06] MEDS: HEPARIN 5000 UNIT/ML 1 ML VIAL ONE ×2 (08:28→10:10)
[2020-08-06] MEDS ORDERED: NA CHLORIDE 0.9% 500 ML ONE (08:57)
[2020-08-06] MEDS: carvediloL 12.5 MG TAB PO SCH ×2 (09:00→21:00)
[2020-08-06] MEDS ORDERED: HYDRALAZINE HCL 25 MG TABLET PO SCH (09:00)
[2020-08-06] MEDS ORDERED: CEFAZOLIN/SWI 1gm 1 GM/10 ML SYR ONE (09:24)
[2020-08-06] MEDS ORDERED: propofoL 200 MG/20 ML VIAL IV ONE ×2 (09:30→10:12)
[2020-08-06 09:57] LABS: Albumin 3.2 g/dL (3.4-5.0); Bilirubin Total 0.3 mg/dL (0.2-1.0); Potassium 4.1 mmol/L (3.5-5.1); Protein, Total 7.4 g/dL (6.4-8.2)
--- NOTE | 2020-08-06 10:13 | P.OP ---
Preoperative diagnosis: Hemodialysis Catheter Dysfunction Postoperative diagnosis: Hemodialysis Catheter Dysfunction Primary procedure: Attempted Replacement of Hemodialysis Catheter Secondary procedure: Repair of LEFT internal jugular hemodialysis catheter Anesthesia: MAC Estimated blood loss: <2cc Specimen: none Findings: Clot @ RIGHT internal jugular vein Complications: None Transferred to: Recovery Room Condition: Good
--- NOTE | 2020-08-06 10:37 | RAD REPORT ---
EXAM DESCRIPTION: RAD - Fluoroscopy <1 Hour - 08/06/2020 10:31 am CLINICAL HISTORY: Device placement central venous catheter placement FINDINGS: A central venous catheter placement was attempted by Dr. Carvalho.. Five fluoroscopic spot images are submitted. Fluoroscopy time 0.2 minutes
--- NOTE | 2020-08-06 11:14 | RAD REPORT ---
EXAM DESCRIPTION: SAMINAGuera Single View08/06/2020 11:03 am CLINICAL HISTORY: Device placement/central venous catheter placement IMPRESSION: A right-sided central venous catheter was attempted. No pneumothorax visualized.
--- NOTE | 2020-08-06 11:58 | OP ---
Date of Procedure: 08/06/2020 Surgeon: Allen Carvalho MD, Brief History Of Present Illness: The patient is a 80-year-old female, known to me from previous catheter placement, who came to the ER with apparent catheter dysfunction on Tuesday. Then, fabric coating supervisor was notified and advised that the patient have a catheter replacement and as such, he called. I was contacted by [facility] and spoke with Dr. Agrawal, who is her primary fabric coating supervisor regarding the care of this patient and they explained to me that the patient would need a catheter replacement as such I deemed the patient appropriate for operative intervention for replacement of the tunneled hemodialysis catheter. Preoperative Diagnosis: Hemodialysis catheter dysfunction. Postoperative Diagnosis: Hemodialysis catheter dysfunction. Procedure: 1. Attempted replacement of hemodialysis catheter in the right subclavian position-unsuccessful. 2. Repair of left internal jugular hemodialysis catheter. 3. Fluoroscopy, ultrasound, and microintroducer set used. Anesthesia: MAC plus local with 0.25% Marcaine without epinephrine. Estimated Blood Loss: Less than 2 mL. Specimen: None. Findings: Upon placing the patient in steep Trendelenburg position, I performed an ultrasound of the right internal jugular vein and found to be patent with a very small lumen, but obvious clot was evident throughout the lumen traversing it all the way down to as far as I could see. As such, a subclavian attempt was made. Complications: None. Disposition: The patient was transferred to the recovery room in good condition. Procedure In Detail: After informed consent was obtained from the patient's family, the patient was prepped and draped in the usual sterile fashion after adequate anesthesia achieved. She was placed in steep Trendelenburg position. I performed an ultrasound as described above. I had noted a clot in the right internal jugular vein, which was took up the majority of the lumen. There was a very small passage of blood using color duplex ultrasonography. As such, I opted that this was not a safe attempt and therefore opted for an ultrasound attempt to the subclavian, but it could not be visualized at this point. Therefore, I attempted for insertion of a right internal jugular catheter, but using the microintroducer set, I cannulated the right subclavian and passed the microwire. Attempts to get the wire to go inferiorly were unsuccessful. It appeared that it kept coiling and as such, using fluoroscopy, I was unable to get the microwire to go in the correct position. As such, I abandoned this portion of the procedure as I have concerned that there was abnormal anatomy versus a clot in this side and I therefore abandoned this portion of the procedure. At this point, I held pressure on the right subclavian insertion site until no bleeding was evident. This took about 5 minutes pressure. I then turned my attention to the left internal jugular catheter, which was already in place, which was tunneled in good position by fluoroscopy. Using a 30 cc syringe, I attempted to withdraw blood, but very little was coming. I used additional maneuvers to straighten the catheter and I was able to pull what appeared to be a clot out into the syringe. This was flushed on the back table. At this point, I was able to draw and flush the blue port quite easily. At this point, I turned my attention to the red port. The red port was able to pull and flush quite easily with saline and as such, I then flushed both ports with saline and packed them with heparin super flush at this point. The left internal jugular catheter was therefore functional at this point and a sterile dressing placed over the right. The patient tolerated the procedure well without evidence of complication and was transferred to PACU in good condition. All counts were correct at the end of the case. A stat chest x-ray will be performed. SAMEER/CONCEPCION Voice ID: [id number] Report ID: [id number] STEPH
--- NOTE | 2020-08-06 14:38 | EKG ---
Test Date: 2020-08-05 Test Time: 17:31:06 Manager Lsw: MASHA MEASUREMENT RESULTS: Intervals: Rate: 66 VT: 158 QRSD: 98 QT: 436 QTc: 457 Priddy: P: 70 VT: 158 QRS: -6 T: 114 INTERPRETIVE STATEMENTS: Normal sinus rhythm Septal infarct, age undetermined ST & T wave abnormality, consider lateral ischemia Abnormal ECG Compared to ECG 04/26/2020 19:50:32 No significant changes Electronically Signed On 08-06-20 14:37:30 VISION THERAPIST by Derek Spring
[2020-08-06] MEDS ORDERED: HYDRALAZINE HCL 25 MG TABLET PO ONE (15:00)
--- NOTE | 2020-08-06 17:59 | P.PN ---
Subjective Date of Service: 08/06/20 Primary Care Provider: Unknown Chief Complaint: Dilaysis catheter complication Subjective: No new changes Review of Systems 10-point ROS is otherwise unremarkable Physical Examination - Vital Signs Temperature: 97.1 F Blood Pressure: 192/72 Pulse: 61 Respirations: 16 Pulse Ox (%): 100 Assessment & Plan Physician Review Additional Text: Physical Exam Gen: Alert, NAD, oriented x1 HEENT: MMM Pulm: CTAB, no wheeze CV: RRR, no murmur Abd: soft, nontender Ext: no tenderness, no rash neuro: AAOx1 (baseline), normal strength Problem List ESRD on HD with dialysis catheter complication and volume overload Diabetes mellitus type 2 Hypertension, hyperlipidemia for dialysis cath replacement today, patient had large clot on R side, and surgeon able to remove clot in L IJ catheter for dialysis today, likely to receive it late tonight, and won't be able to be dc'd home today otherwise doing well, at baseline BP elevated, discussed with daughter, patient was only receiving half of home med dosage, restart at home dose Dispo: anticipate dc home tomorrow Time Spent Managing Pts Care (In Minutes): 35
[2020-08-06] MEDS ORDERED: D50W 25 GM/50 ML VIAL IV PRN (18:00)
[2020-08-06] MEDS: HYDRALAZINE HCL 20 MG/ML VIAL IV PRN (18:23)
[2020-08-06] MEDS ORDERED: HYDRALAZINE HCL 20 MG/ML VIAL ONE (18:31)
[2020-08-06] MEDS: HYDRALAZINE HCL 25 MG TABLET PO SCH (22:29)
[2020-08-06] MEDS ORDERED: carvediloL 6.25 MG TAB ONE (22:44)
[2020-08-06] MEDS ORDERED: HYDRALAZINE HCL 10 MG TABLET ONE (22:44)
[2020-08-07] MEDS: LEVOTHYROXINE SOD 0.05 MG TABLET PO SCH (05:33)
[2020-08-07] MEDS ORDERED: LEVOTHYROXINE SOD 0.05 MG TABLET ONE (05:42)
[2020-08-07 06:38] LABS: Magnesium 2.4 mg/dL (1.8-2.4); Phosphorus 2.9 mg/dL (2.5-4.9); Potassium 3.9 mmol/L (3.5-5.1)
[2020-08-07] MEDS: INSULIN -REGULAR HUMAN 50 UNIT/0.5 ML ML SQ SCH ×3 (07:30→15:48)
[2020-08-07] MEDS ORDERED: HYDRALAZINE HCL 10 MG TABLET ONE (08:11)
[2020-08-07] MEDS ORDERED: carvediloL 6.25 MG TAB ONE (08:11)
[2020-08-07] MEDS: HYDRALAZINE HCL 25 MG TABLET PO SCH (08:21)
[2020-08-07] MEDS: carvediloL 12.5 MG TAB PO SCH (08:21)
[2020-08-07] MEDS: HYDRALAZINE HCL 20 MG/ML VIAL IV PRN (12:19)
[2020-08-07] MEDS ORDERED: HYDRALAZINE HCL 20 MG/ML VIAL ONE (12:35)
[2020-08-07 15:50] VITALS: BP 146/49; TEMP 98.5; O2SAT 96
--- NOTE | 2020-08-09 17:40 | CON ---
Date of Consultation: 08/06/2020 Brief History Of Present Illness: The patient is a 80-year-old female, known to me from previous hem odialysis catheter placement, who was recently seen in the ER here at [facility]. Dr. Mitchell millan cted me regarding this patient. She was seen in the ER with concern of hemodialysis catheter dysfunc tion. She was discharged per Dr. Medrano's recommendations with instructions to follow up with me i n my clinic within the next day or so. We had her booked on the schedule. However, the patient was unable to come and see me in clinic at that time due to difficulty with weather situations. Ultimate ly, we saw and evaluated the patient and planned for surgery. However, due to logistical reasons wit h the hospital having power averages on generator power and having water contamination due to a recen t weather event, the patient was unable to have the catheter replacement per Dr. Medrano's recommend ations as such. She is admitted on 06/04/2021 after we instructed the patient to come to the ER as I had concerns about possible extended period of time without hemodialysis and electrolyte abnormaliti es and as such I recommended she come to the emergency room. She is admitted at this time by Dr. Light to for the above stated issue. The patient is currently confused. I have spoken to her granddaughte r and daughter regarding her medical situation and I have obtained consent for procedure of a possibl e replacement or repair of her hemodialysis catheter. The patient does not seem to have good insight , but is awake, conversive, but confused with respect to her medical condition. Much information is obtained from the family and the medical chart. Past Medical History: Significant for hypertension, diabetes, CVA, pneumonia, left lower extremity w ound, end-stage renal disease, hyperlipidemia, hypothyroidism. Past Surgical History: Includes hemodialysis access placement as well as cataract surgery. Allergies: TO CODEINE. Home Medications: Include aspirin, Lipitor, levothyroxine, Protonix, pentoxifylline, Apresoline, lat anoprost, sevelamer, Ancef, Novolin, Coreg. Social History: She cannot recall if she ever smoked or drinks alcohol or does any recreational drug s, but cannot recall. 10-point review of systems other than HPI, denies. Physical Examination: Vital Signs: At the time of my examination, her vital signs were a blood pressure 162/91, pulse is 7 6, respiratory rate 17, temperature 99.0. General: She is awake and alert but confused. She is pleasant and conversive, but has very minimal insight to her current medical situation. HEENT: She is otherwise normocephalic. Her sclerae were anicteric. Her mucous membranes are moist. Oropharynx was clear. Neck: Supple without JVD. There is a hemodialysis catheter in the left internal jugular vein, which is capped at this point. Chest: Otherwise she has multiple scars in the area of the right internal jugular vein. She has mathieu e distended neck veins on both sides of her neck, but now these appeared to be accessory veins. She has multiple scars in her subclavian area on bilateral chest as well. She has some pronounced dilata tion of veins on her arms as well. Abdomen: Soft. Laboratory Data: She had a laboratory exam, which reveals a sodium 143, potassium 4.1, chloride 112, carbon dioxide 20, BUN 106, creatinine was 5.3. Her glucose was 85. She had a chest x-ray performe d, which was officially read as the lungs appear to be clear of acute infiltrate. Central venous cat heter has its tip in the superior vena cava pointing cranially. Assessment And Plan: This is a 80-year-old female, as described, who has end-stage renal disease in need of hemodialysis with catheter dysfunction. 1.I have explained the risks, benefits, and alternatives to the patient and her family including marilin ghter and granddaughter with respect to treatment, which might include replacement of a hemodialysis catheter with either right internal jugular or right subclavian approach or repair of the left communications marketing intern al jugular catheter if possible including but not limited to bleeding, infection, damage to surroundi ng tissues, need for further operation procedures. 2.Continue medical management in anticipation for surgery today. TK/MODL Voice ID: [id number] Report ID: [id number]
--- NOTE | 2020-08-14 13:54 | P.DS ---
Admission Date: 08/05/20 Discharge Date: 08/07/20 Primary Care Provider: Unknown Disposition: ROUTINE DISCHARGE Discharge Condition: FAIR Reason for Admission: Dilaysis catheter complication Consultations: General Surgery - Dr. Carvalho Nephrology - Dr. Agrawal Procedures: CXR (08/05): Central venous catheter has its tip in the superior vena cava pointing cranially Repair of LEFT internal jugular hemodialysis catheter (08/06) by Dr. Carvalho. unable to place R subclavian dialysis catheter due to clot - per Dr. Carvalho CXR (08/06): A right-sided central venous catheter was attempted. No pneumothorax visualized Problem List: ESRD on HD with dialysis catheter complication and volume overload Diabetes mellitus type 2, insulin- dependent Hypertension Hyperlipidemia Brief History of Present Illness: 72yo F, PMH: DM2, HTN, ESRD on HD presents to ED for hemodialysis catheter complication. Patient's dialysis catheter to the left anterior chest wall apparently not functioning appropriately, unable to receive dialysis for the past 1 week. Labs unremarkable in emergency department potassium 3.9 but patient hypertensive blood pressure 208 systolic. Case was discussed with General Surgery and Nephrology, plan for admission with replacement dialysis catheter tomorrow followed by dialysis Hospital Course: Patient was taken to OR by Dr. Carvalho, unable to place R subclavian catheter due to presumed clot. Dr. Carvalho was able to clear her current L dialysis catheter and patient was able to successfully undergo hemodialysis. Patient's blood pressure was still significantly elevated. After further discussion with the patient's daughter, the patient has been taking/prescribed higher dose of her medication. Once her correct dosage was resumed and after dialysis, her blood pressure improved and she was discharged home to continue dialysis as scheduled. Vital Signs/Physical Exam: Physical Exam: Gen: Alert, NAD HEENT: MMM Pulm: CTAB, no wheeze CV: RRR, no murmur Abd: soft, nontender Ext: no tenderness, no rash neuro: AAOx1 (baseline), normal strength Temp Pulse Resp BP Pulse Ox 98.5 F 65 16 146/49 H 96 08/07/20 15:48 08/07/20 15:48 08/07/20 15:48 08/07/20 15:48 08/07/20 15:48 Laboratory Data at Discharge: WBC 5.20 K/uL (4.3-10.9) D 08/05/20 14:32 Hgb 12.9 g/dL (12.0-15.0) 08/05/20 14:32 Hct 40.4 % (36.0-45.0) 08/05/20 14:32 Plt Count 216 K/uL (152-406) D 08/05/20 14:32 PT 11.9 SECONDS (9.5-12.5) 08/05/20 16:24 INR 1.03 08/05/20 16:24 Sodium 145 mmol/L (136-145) 08/07/20 06:04 Potassium 3.9 mmol/L (3.5-5.1) 08/07/20 06:04 BUN 27 mg/dL (7-18) H D 08/07/20 06:04 Creatinine 2.51 mg/dL (0.55-1.3) H D 08/07/20 06:04 Glucose 62 mg/dL (74-106) L 08/07/20 06:04 Phosphorus 2.9 mg/dL (2.5-4.9) 08/07/20 06:04 Magnesium 2.4 mg/dL (1.8-2.4) 08/07/20 06:04 Total Bilirubin 0.3 mg/dL (0.2-1.0) 08/06/20 08:22 AST 15 U/L (15-37) 08/06/20 08:22 ALT 11 U/L (12-78) L 08/06/20 08:22 Alkaline Phosphatase 64 U/L (45-117) 08/06/20 08:22 Home Medications: Aspirin 81 mg PO DAILY 10/31/19 Atorvastatin Calcium [Lipitor*] 20 mg PO BEDTIME 10/31/19 Levothyroxine Sodium 50 mcg PO DAILY 10/31/19 Pantoprazole [Protonix Tab*] 40 mg PO DAILY 10/31/19 Pentoxifylline 400 mg PO BID 10/31/19 Hydralazine [Apresoline*] 50 mg PO BID 04/27/20 Latanoprost/Pf [Latanoprost 0.005% Eye Drop] 1 drop LEFT EYE BEDTIME 04/27/20 Sevelamer Carbonate 1 tab PO TID 04/27/20 Insulin -Regular Human [Novolin -R*] See Protocol SQ ACHS ml 05/09/20 carvediloL [Carvedilol] 1 tab PO BID 08/06/20 Physician Discharge Instructions: PROBLEM: Dilysis Catheter Complication, ESRD GOAL: Clear understanding of disease process INSTRUCTIONS: Your dialysis catheter was cleaned out and working now. You underwent dialysis. You are discharged back home. Continue dialysis as previously scheduled. Follow up with your veterans employment representative as previously scheduled. Continue home medications as previously prescribed. Follow up with your PCP in 1 week If symptoms worsens return to ER Diet: Renal Activity: Ad dayana IMMUNIZATION Influenza Vaccine Indicated: Influenza Vaccine Given: Date Given: Pneumonia Vaccine Indicated: Pneumonia Vaccine Given: Date Given: Diet: Renal Activity: Ad dayana Followup: NONE,NONE [Primary Care Provider] - 1 Week (call for appointment) Time spent managing pt's care (in minutes): 40
== END 2020-08-07 17:30 | disposition home or self-care (01) ==
LOC: ER 11:21 → ERHOLD 18:45 → 4TH 08-07 17:14
PROVIDERS: ADMIT Hospitalist; ATTEND Hospitalist
PROC: 3C1ZX8Z Irrigation of Indwelling Device using Irrigating Substance, External Approach (ICD-10-PCS; principal; 2020-08-06 08:30)
DX: T82.868A Thrombosis due to vascular prosthetic devices, implants and grafts, initial encounter (principal); E11.22 Type 2 diabetes mellitus with diabetic chronic kidney disease; I12.0 Hypertensive chronic kidney disease with stage 5 chronic kidney disease or end stage renal disease; N18.6 End stage renal disease; Z99.2 Dependence on renal dialysis; Z79.4 Long term (current) use of insulin; E78.5 Hyperlipidemia, unspecified; Z86.73 Personal history of transient ischemic attack (TIA), and cerebral infarction without residual deficits; E03.9 Hypothyroidism, unspecified; R94.31 Abnormal electrocardiogram [ECG] [EKG]; K21.9 Gastro-esophageal reflux disease without esophagitis
CPT/HCPCS: 93005; 85025; 80048 ×2; 36415 ×2; 83735 ×2; 84100; 85610; 82947 ×6; 80076; 84484; 80053; 83880; 71045 ×2; 90935; 99285; 36596; J0360 ×2; J2704 ×2; J1940; J1644 ×3; J0690; J7040; 76000; J7799

== ENCOUNTER 2020-09-10 14:16 | Observation (INO) | payer OTHER ==
--- OUTSIDE RECORDS SUMMARY | 2020-09-10 14:21 | XMS REPORT | Continuity of Care Document ---
:1940 Author Organization [facility] t Address [address] [place] [address] Care Team Providers Name Role Phone Pcp Primary Care Physician Unavailable NATALIE Attending Clinician Unavailable Marc Madera MD Attending Clinician Jared Chase MD Attending Clinician [phone] Merchant RIOS Attending Clinician Asha Casey MD Attending Clinician NIGEL Attending Clinician Unavailable Estrellita Alvarez MD Attending Clinician Elsa Vidal CRNA Attending Clinician Lisandra Levine MD Attending Clinician MARC MADERA Attending Clinician Unavailable CHIDI Attending Clinician Unavailable ASHA CASEY Admitting Clinician Unavailable CHIDI Admitting Clinician Unavailable Payers Payer Name Policy Type Policy Effective Date Expiration Date Sour ce Number HUMANA - MEDICARE [id number] [address] [facility] MGD CAREHUMANA 00:00:00 - Medical MEDICARE Center [id number]/06/21 020-PresentMaps Contracted Problems Condition Condition Condition Status Onset Resolution Last Treating Co mments Source Name Details Category Date Date Treatment Clinician Date Gastrointe Gastrointe Disease Active [facility] st[facility] stinal 09-24 [facility] - hemorrhage hemorrhage 00:00: Me dical with with Center melena melena GIB GIB Disease Active [facility] ([facility]astroint (gastroint 4-07 Angelique kes - estinal estinal 00:00: Medical bleeding) bleeding) 00 Cent er ESRD (end ESRD (end Disease Active [facility] stage stage kes - renal renal Medical disease) disease) Center on on dialysis dialysis Allergies, Adverse Reactions, Alerts Allergy Allergy Status Severity Reaction(s) Onset Inactive Treating Comm ents Source Name Type Date Date Clinician Tramadol Propensi Active Other (See [facility] Comments) 1 [facility] - adverse 00:00: Medical reaction 00 Center s Codeine Propensi Active Other (See [facility] Comments) 6 [facility] - adverse 00:00: Medical reaction 00 Center s Social History Social Habit Start Date Stop Date Quantity Comments Source Sex Assigned At [facility] Center Medications Ordered Filled Start Stop Current Ordering Indication Dosage Frequency Signature Comments Components Source Medication Medication Date Date Medication? Clinician (SIG) Name Name amLODIPine 2019-0 Yes 5mg QD Take [address] (NORVASC) 5 4-15 by mouth Luke s - MG tablet 17:33: daily . Medic al 00 [place] aspirin 81 2019-0 Yes 81mg QD Take [address] MG EC 4-15 by mouth [facility] - tablet 17:33: daily. Medical 00 [place] atorvastati 2019-0 Yes 20mg QD Take [address] n (LIPITOR) 4-15 by mouth Luke s - 20 MG 17:33: daily. Medical tablet 00 Center carvediloL 2019-0 Yes hypertensio 12.5mg Take 12.5 [...] packet days. hydrALAZINE 2019-0 Yes hypertensio 25mg Q.[id number] Take [address] (APRESOLINE 4-15 n [id number] by mouth 3 [facility] - ) 25 [...] (3 mL) InPn daily before meals. PENTOXIFYLL 2019-0 Yes peripheral 400mg Q.5D Take [address] INE ORAL 4-15 vascular mg by [facility] - 17:33: disease mouth 2 Medical 00 (two) Center times daily. pantoprazol 2019-0 Yes 40mg QD Take [address] [facility] e 4-15 by mouth [facility] - (PROTONIX) 17:33: daily. Medic al 40 MG 00 Center tablet acetaminoph 2019-0 Yes 650mg Take [address] [...] 00 :00 (two) Center suppository times daily. LORazepam 2019- 2020- No .5mg Take 0.[address] (ATIVAN) 3-18 04-10 mg by [facility] - 0.5 MG 00:00: 00:00 mouth Medical tablet 00 :00 every 8 Center (eight) hours as needed for Anxiety. Vital Signs Vital Name Observation Time Observation Value Comments Source Heart rate 2019-10-03 16:21:00 66 /min [facility] Respiratory rate 2019-10-03 16:21:00 16 /min [facility] Oxygen saturation in 2019-10-03 16:21:00 92 /min [facility] Arterial blood by Medical Ce nter Pulse oximetry Systolic blood 2019-10-03 14:42:00 155 mm[Hg] [facility] Diastolic blood 2019-10-03 14:42:00 68 mm[Hg] [facility] Body temperature 2019-10-03 14:42:00 36.83 Yoko [facility] Body weight 2019-10-03 11:15:00 41.9 kg [facility] BMI 2019-10-03 11:15:00 18.66 kg/m2 [facility] Body height 2019-09-27 09:00:00 149.9 cm per daughter [facility] Procedures Procedure Date / Time Performing Clinician Source Performed TRANSFUSION SERVICE REPORT 2019-10-04 17:51:54 Provider, Default [facility] SCAN [facility] REPORT OF PROCEDURE - 2019-10-04 12:40:51 Provider, Default [facility] ENDOSCOPY [facility] RHYTHM STRIP - SCAN 2019-10-04 12:40:36 Provider, Default [facility] PREPARE LEUKO-REDUCED RBC 2019-10-03 23:54:00 [facility] TRANSFUSION SERVICE REPORT 2019-10-03 17:51:47 Provider, Default [facility] POCT-GLUCOSE METER 2019-10-03 16:47:00 [facility] POCT-GLUCOSE METER 2019-10-03 11:32:00 [facility] POCT-GLUCOSE METER 2019-10-03 10:56:00 [facility] POCT-GLUCOSE METER 2019-10-03 08:10:00 [facility] POCT-GLUCOSE METER 2019-10-03 07:39:00 [facility], [facility] CBC W/PLT COUNT & AUTO 2019-10-03 06:01:00 [facility] BASIC METABOLIC PANEL (7) 2019-10-03 06:01:00 [facility] TRANSFUSE LEUKO-REDUCED 2019-10-03 01:35:51 [facility], [facility] RED BLOOD CELLS [facility] POCT-GLUCOSE METER 2019-10-02 21:13:00 [facility], [facility] TYPE AND SCREEN, AUTOMATED 2019-10-02 18:44:00 Brigidat, [facility] POCT-GLUCOSE METER 2019-10-02 17:19:00 [facility], [facility] CBC W/PLT COUNT & AUTO 2019-10-02 17:12:00 [facility], [facility] BASIC METABOLIC PANEL (7) 2019-10-02 17:12:00 [facility] POCT-GLUCOSE METER 2019-10-02 11:02:00 [facility] POCT-GLUCOSE METER 2019-10-02 07:52:00 [facility] POCT-GLUCOSE METER 2019-10-01 21:26:00 [facility] POCT-GLUCOSE METER 2019-10-01 16:30:00 [facility] POCT-GLUCOSE METER 2019-10-01 12:09:00 Merchant, [facility] POCT-GLUCOSE METER 2019-10-01 08:25:00 [facility], [facility] HEMODIALYSIS INPATIENT 2019-10-01 08:14:48 Romelia Palacio [facility] POCT-GLUCOSE METER 2019-10-01 07:05:00 [facility] POCT-GLUCOSE METER 2019-09-30 20:45:00 [facility] 2019-09-30 15:37:00 [facility] POCT-GLUCOSE METER 2019-09-30 11:50:00 [facility] POCT-GLUCOSE METER 2019-09-30 07:21:00 [facility] BASIC METABOLIC PANEL (7) 2019-09-30 04:10:00 [facility] CBC W/PLT COUNT & AUTO 2019-09-30 04:10:00 [facility] POCT-GLUCOSE METER 2019-09-29 20:06:00 [facility] HEMOGLOBIN AND HEMATOCRIT 2019-09-29 18:11:00 [facility] POCT-GLUCOSE METER 2019-09-29 16:43:00 [facility] POCT-GLUCOSE METER 2019-09-29 11:49:00 [facility] POCT-GLUCOSE METER 2019-09-29 07:59:00 [facility] POCT-GLUCOSE METER 2019-09-28 20:18:00 [facility] TRANSFUSION SERVICE REPORT 2019-09-28 17:52:05 Lupe [facility] POCT-GLUCOSE METER 2019-09-28 16:56:00 [facility] POCT-GLUCOSE METER 2019-09-28 11:22:00 [facility] HEMODIALYSIS INPATIENT 2019-09-28 10:18:05 Romelia Palacio [facility] HEMODIALYSIS INPATIENT 2019-09-28 08:20:40 Romelia Palacio [facility] BASIC METABOLIC PANEL (7) 2019-09-28 04:10:00 Ciara Casey [facility] HEPATIC FUNCTION PANEL 2019-09-28 04:10:00 Ciara Casey [facility] PROTHROMBIN TIME/INR 2019-09-28 04:10:00 [facility] W[facility] & AUTO 2019-09-28 04:10:00 Ciara Casey [facility] PREPARE LEUKO-REDUCED RBC 2019-09-27 23:54:00 Ciara Casey [facility] POCT-GLUCOSE METER 2019-09-27 21:43:00 [facility] ECHOCARDIOGRAM REPORT - 2019-09-27 21:10:38 Provider, [facility] TRANSFUSION SERVICE REPORT 2019-09-27 17:52:23 Provider, [facility] POCT-GLUCOSE METER 2019-09-27 17:28:00 [facility] REPORT OF PROCEDURE - 2019-09-27 14:41:18 Dai Levine [facility] ENDOSCOPY [facility] SIGMOIDOSCOPY 2019-09-27 13:32:00 Dai Levine [facility] POCT-GLUCOSE METER 2019-09-27 12:29:00 [facility] 2D ECHO W/ DOPPLER 2019-09-27 09:11:[address] [facility] (CW/PW/COLOR) [facility] POCT-GLUCOSE METER 2019-09-27 08:02:00 [facility] BASIC METABOLIC PANEL (7) 2019-09-27 04:26:00 Ciara Casey [facility] HEPATIC FUNCTION PANEL 2019-09-27 04:26:00 Ciara Casey [facility] PROTHROMBIN TIME/INR 2019-09-27 04:26:00 Ciara Casey [facility] CBC W/PLT COUNT & AUTO 2019-09-27 04:26:00 [facility]OSPHORUS 2019-09-27 04:26:00 Romelia Palacio [facility] POCT-GLUCOSE METER 2019-09-26 20:57:00 [facility] POCT-GLUCOSE METER 2019-09-26 16:58:00 [facility] POCT-GLUCOSE METER 2019-09-26 11:38:00 [facility] HEPATITIS B SURFACE 2019-09-26 08:52:00 Richmond Mendoza [facility] CBC W/PLT COUNT & AUTO 2019-09-26 08:52:00 Richmond Mendoza [facility] MAGNESIUM 2019-09-26 08:52:00 Jacinto [facility] POCT-GLUCOSE METER 2019-09-26 07:44:00 Candice Madera [facility] TRANSFUSE LEUKO-REDUCED 2019-09-26 06:25:26 Jacinto [facility] - RED BLOOD CELLS [facility] XR HIP 2 VIEWS LEFT 2019-09-26 04:45:[address] [facility] FERRITIN 2019-09-26 04:09:00 Jacinto [facility] IRON, TIBC, % SAT. 2019-09-26 04:09:[address] [facility] - (WITHOUT FERRITIN) [facility] VITAMIN B12 AND FOLATE 2019-09-26 04:09:[address] [facility] ABORH, MANUAL 2019-09-26 02:07:00 Sol Gallegos [facility] CBC W/PLT COUNT & AUTO 2019-09-26 02:07:00 [facility] BLOOD CULTURE 2019-09-26 02:07:00 Jacinto [facility] BASIC METABOLIC PANEL (7) 2019-09-26 02:07:00 Ciara Casey [facility] HEPATIC FUNCTION PANEL 2019-09-26 02:07:[address] [facility] PROTHROMBIN TIME/INR 2019-09-26 02:07:[address] [facility] TYPE AND SCREEN, AUTOMATED 2019-09-26 01:33:[address] [facility] HEMOGLOBIN A1C 2019-09-26 01:33:00 Jacinto [facility] CBC W/PLT COUNT & AUTO 2019-09-25 22:27:00 Jacinto [facility] COMPREHENSIVE METABOLIC 2019-09-25 22:27:00 Ciara Casey [facility] PROTHROMBIN TIME/INR 2019-09-25 22:27:[address] [facility] POCT-GLUCOSE METER 2019-09-25 20:24:00 Candice Madera [facility] Plan of Care Planned Activity Planned Date Details Comments Source Future Scheduled 2020-03-27 Hemoglobin A1c [facility] kes - Test 00:00:00 [facility] (procedure) [code = 91830656] Future Scheduled 2020-02-19 INFLUENZA VACCINE (#1) [facility] Test 00:00:00 [code = INFLUENZA Medical Ce nter VACCINE (#1)] Future Scheduled 2019-06-20 Medicare IPPE (WELCOME [facility] - Test 00:00:00 TO MEDICARE) [code = Medical Center Medicare IPPE (WELCOME TO MEDICARE)] Future Scheduled 2007 PNEUMOCOCCAL 65+ Y[facility] - Test 00:00:00 (2 of 2 - PPSV23) Medical Ce nter [code = PNEUMOCOCCAL 65+ YRS (2 of 2 - PPSV23)] Future Scheduled 1952-01-12 DIABETIC EYE EXAM [facility] - Test 00:00:00 [code = DIABETIC EYE Medical Center EXAM] Future Scheduled 1950-01-[address] [facility] - Test 00:00:00 examination Medical Center (regime/therapy) [code = 599220622] Future Scheduled 1950-01-12 Urine screening for [facility] - Test 00:00:00 protein (procedure) Medical Center [code = 959247943] Encounters Start End Encounter Admission Attending Care Care Encounter Source Date/Time Date/Time Type Type Clinicians Facility Department ID 2020-01-04 2020-01-04 Outpatient ESTRADA, [facility] [id number] [place] 00:00:00 00:00:00 TRACI [address] 2019-12-14 2019-12-14 Outpatient ESTRADA, [facility] [id number] [place] 00:00:00 00:00:00 TRACI [address] 2019-11-14 2019-11-14 Outpatient ESTRADA, [facility] [id number] [place] 00:00:00 00:00:00 TRACI [address] 2019-10-24 2019-10-24 Outpatient ESTRADA, [facility] [id number] [place] 00:00:00 00:00:00 TRACI [address] 2019-10-02 2019-10-02 Outpatient ONIEL MANNING [facility] [id number] [place] 00:00:00 00:00:[address] 2019-09-04 2019-09-12 Inpatient CHIDI, [facility] [id number] [place] 00:00:00 00:00:00 DOROTA [address] 2019-08-27 2019-08-27 Outpatient ESTRADA, [facility] [id number] [place] 00:00:00 00:00:00 TRACI [address] 2019-08-27 2019-08-27 Outpatient ESTRADA, [facility] [id number] [place] 00:00:00 00:00:00 TRACI [address] 2019-08-07 2019-08-21 Inpatient CHIDI, [facility] [id number] [place] 00:00:00 00:00:00 DOROTA [address] Results Test Description Test Time Test Comments Results Result Comments Source Prepare Leuko-Red RBC 2019-10-03 23:54:00 Test Item Value Reference Range Interpretation Comme nts CROSSMATCH (test code = 2264) COMPATIBLE Unit ABO (test code = 5863302) O Pos UNIT NUMBER (test code = 934-0) [id number] Status (test code = 5477503) [place]_TIMEINCHART Blood Bank Product (test code = 2263) RED BLOOD CELLS PRODUCT CODE (test code = 933-2) [id number] [facility] [id number] 16:59:00 Test Item Value Reference Range Interpretation Comments POC-Glucose Meter (test 81 mg/dL 70-110 : TE STED AT [facility] code = 1538) [address] [facility], 770 30: Sand Slinger/Techni jamey ID = [id number] for QUEEN MURILLO Lab Interpretation (test Normal code = 43037-3) [facility]-GLUCOSE [id number] 16:59:00 Test Item Value Reference Range Interpretation Comments POC-GLUCOSE METER 81 mg/dL 70-110 : TESTED A T [facility] 6720 (BEAKER) (test code = [facility], 1538) 88677: Sand Slinger/Techni jamey ID = [id number] for QUEEN KNOX POCT-GLUCOSE [id number] 11:50:00 Test Item Value Reference Range Interpretation Comments POC-GLUCOSE METER 123 mg/dL 70-110 H : TESTED A T [facility] 6720 (BEAKER) (test code = [facility], 153) 59190: Sand Slinger/Techni jamey ID = [id number] for QUEEN BECKER POCT-GLUCOSE [id number] 11:07:00 Test Item Value Reference Range Interpretation Comments POC-GLUCOSE METER 127 mg/dL 70-110 H : TESTED A T [facility] 6720 (BEAKER) (test code = [facility], 1538) 17901: Sand Slinger/Techni jamey ID = [id number] for Argenis renteria Thomas POCT-GLUCOSE [id number] 08:22:00 Test Item Value Reference Range Interpretation Comments POC-GLUCOSE METER 78 mg/dL 70-110 : TESTED A T [facility] 6720 (BEAKER) (test code = [facility], 1538) 65847: Sand Slinger/Techni jamey ID = [id number] for Thomas Light POCT-GLUCOSE [id number] 07:54:00 Test Item Value Reference Range Interpretation Comments POC-GLUCOSE METER 69 mg/dL 70-110 L : TESTED A T [facility] 6720 (BEAKER) (test code = TATIANA Figueroa [facility], 1538) 59376: Sand Slinger/Techni jamey ID = [id number] for QUEEN KNOX Basic Metabolic [id number] 07:05:00 Test Item Value Reference Range Interpretation Comments Sodium (test code = 139 meq/L 612-769 8549-2) Potassium (test code = 3.6 meq/L 3.5-5.1 2823-3) Chloride (test code = 105 meq/L 98-107 2075-0) CO2 (test code = 25 meq/L 22-29 2028-9) BUN (test code = 18 mg/dL 7-21 3094-0) Creatinine (test code 3.59 mg/dL 0.57-1.25 H = 2160-0) Glucose (test code = 74 mg/dL 70-105 2345-7) Calcium (test code = 7.4 mg/dL 8.4-10.2 L 72281-0) EGFR (test code = 12 mL/min/1.73 [place] [address]-0) NOT ACCURATE CREATININE CLEARANCE IN PREDICTING GLOMERULAR FILTRATION RATE . ESTIMATED GFR I S NOT APPLICABLE FOR DIALYSIS PATIENTS. YAMIL (test code = YAMIL) Sand Slinger ID - PIAYA L Lab Interpretation Abnormal (test code = 46165-8) [facility] METABOLIC [id number] 07:05:00 Test Item Value Reference Range Interpretation [...] S NOT APPLICABLE FOR DIALYSIS PATIEN TS. Sand Slinger ID - PIAYA LCBC with platelet count + automated [id number] 06:42:00 Test Item Value Reference Range Interpretation Comments WBC (test code = 6690-2) 4.5 See_Comment [A utomated message] The system [employer] generated this result transmitted ref erence range: 3.5 - 10 .5 K/L. The refe rence range was not u sed to interpret this result as normal/abnor mal. RBC (test code = 789-8) 2.92 See_Comment L [Au tomated message] The system [employer] generated this result transmitted ref erence range: 3.93 - 5 .22 M/L. The refe rence range was not u sed to interpret this result as normal/abnor mal. MCHC (test code = 786-4) 32.3 See_Comment L [A utomated message] The system [employer] generated this result transmitted ref erence range: 32.2 - 3 5.5 GM/DL. The refe rence range was not u sed to interpret this result as normal/abnor mal. Hematocrit (test code = 25.7 % 34.1-44.9 L 4544-3) MCV (test code = 787-2) 88.0 fL 79.4-94.8 MCH (test code = 785-6) 28.4 pg 25.6-32.2 RDW (test code = 788-0) 14.6 % 11.7-14.4 H Platelets (test code = 226 See_Comment [Aut omated message] 777-3) The system [employer] generated this result transmitted ref erence range: 150 - 45 0 K/CU MM. The referen ce range was not u sed to interpret this result as normal/abnor mal. MPV (test code = 9.7 fL 9.4-12.3 87833-4) nRBC (test code = 413) 0 See_Comment [Aut omated message] The system [employer] generated this result transmitted ref erence range: 0 - 0 /1 00 WBC. The refere nce range was not u sed to interpret this result as normal/abnor mal. % Neutros (test code = 69 % 429) % Lymphs (test code = 21 % 430) % Monos (test code = 7 % 431) % Eos (test code = 432) 2 % % Baso (test code = 437) 1 % # Neutros (test code = 3.10 See_Comment [Aut omated message] 670) The system [employer] generated this result transmitted ref erence range: 1.56 - 6 .13 K/L. The refe rence range was not u sed to interpret this result as normal/abnor mal. # Lymphs (test code = 0.93 See_Comment L [Auto mated message] 414) The system [employer] generated this result transmitted ref erence range: 1.18 - 3 .74 K/L. The refe rence range was not u sed to interpret this result as normal/abnor mal. # Monos (test code = 0.32 See_Comment [Autom ated message] 415) The system [employer] generated this result transmitted ref erence range: 0.24 - 0 .36 K/L. The refe rence range was not u sed to interpret this result as normal/abnor mal. # Eos (test code = 416) 0.07 See_Comment [Au tomated message] The system [employer] generated this result transmitted ref erence range: 0.04 - 0 .36 K/L. The refe rence range was not u sed to interpret this result as normal/abnor mal. # Baso (test code = 417) 0.04 See_Comment [A utomated message] The system [employer] generated this result transmitted ref erence range: 0.01 - 0 .08 K/L. The refe rence range was not u sed to interpret this result as normal/abnor mal. Immature 0 % 0-1 Granulocytes-Relative (test code = 2801) Lab Interpretation (test Abnormal code = 25548-8) [facility] W/PLT COUNT & AUTO [id number] 06:42:00 Test Item Value Reference Range Interpretation [...] PERCENT (BEAKER) (test code = 2801) POCT-GLUCOSE [id number] 21:29:00 Test Item Value Reference Range Interpretation Comments POC-GLUCOSE METER 95 mg/dL 70-110 : TESTED A T [facility] 6720 (BEAKER) (test code = [facility] [employer] [facility], 1538) 48089: Sand Slinger/Techni jamey ID = [id number] for ANGELA , ZELALEMTU Type and screen, [id number] 19:33:00 Test Item Value Reference Range Interpretation Comments ABO/RH AUTOMATED (BEAKER) (test O POSITIVE code = 2260) Ab Scrn (test code = 890-4) [facility] [id number] 17:44:00 Test Item Value Reference Range Interpretation [...] S NOT APPLICABLE FOR DIALYSIS PATIEN TS. Sand Slinger ID - BSPOCT-GLUCOSE [id number] 17:42:00 Test Item Value Reference Range Interpretation Comments POC-GLUCOSE METER 96 mg/dL 70-110 : TESTED A T [facility] 6720 (BEAKER) (test code = [facility] [employer] [facility], 1538) 18904: Sand Slinger/Techni jamey ID = [id number] for DERIK PEDRO CBC W/PLT COUNT & AUTO [id number] 17:37:00 Test Item Value Reference Range Interpretation [...] (test code = 416) BASOPHILS ABSOLUTE COUNT (AKER) 0.03 K/ L 0.01-0.08 (test code = 417) IMMATURE GRANULOCYTES-RELATIVE 1 % 0-1 PERCENT (BEAKER) (test code = 2801) POCT-GLUCOSE [id number] 13:09:00 Test Item Value Reference Range Interpretation Comments POC-GLUCOSE METER 72 mg/dL 70-110 : TESTED A T [facility] 6720 (BEAKER) (test code = [facility], 1538) 01883: Sand Slinger/Techni jamey ID = [id number] for WILL IS, GORGE POCT-GLUCOSE [id number] 08:42:00 Test Item Value Reference Range Interpretation Comments POC-GLUCOSE METER 87 mg/dL 70-110 : TESTED A T [facility] 6720 (BEAKER) (test code = [facility], [facility]8) 03084: Sand Slinger/Techni jamey ID = [id number] for WILL IS, GORGE POCT-GLUCOSE [id number] 21:42:00 Test Item Value Reference Range Interpretation Comments POC-GLUCOSE METER 94 mg/dL 70-110 : TESTED A T [facility] 6720 ([facility]) (test code = [facility], [facility]) 10773: Sand Slinger/Techni jamey ID = [id number] for SHAAN MILLERU POCT-GLUCOSE [id number] 21:33:00 Test Item Value Reference Range Interpretation Comments POC-GLUCOSE METER 84 mg/dL 70-110 : TESTED A T [facility] 6720 ([facility]) (test code = [facility], [facility]) 71495: Sand Slinger/Techni jamey ID = [id number] for ALEKS S, ABI POCT-GLUCOSE [id number] 12:49:00 Test Item Value Reference Range Interpretation Comments POC-GLUCOSE METER 139 mg/dL 70-110 H : TESTED A T [facility] 6720 (BEAKER) (test code = [facility], [facility]) 61967: Sand Slinger/Techni jamey ID = [id number] for REKHA ASHLEY, ABI POCT-GLUCOSE [id number] 10:22:00 Test Item Value Reference Range Interpretation Comments POC-GLUCOSE METER 96 mg/dL 70-110 : TESTED A T [facility] 6720 (BEAKER) (test code = [facility], 153) 39788: Sand Slinger/Techni jamey ID = [id number] for Dayna Meadows POCT-GLUCOSE [id number] 08:42:00 Test Item Value Reference Range Interpretation Comments POC-GLUCOSE METER 94 mg/dL 70-110 : TESTED A T [facility] 6720 (BEAKER) (test code = [facility], 153) 30115: Sand Slinger/Techni jamey ID = [id number] for ABI ESTES Blood Culture - Routine (Right Venipuncture)2019-10-01 05:00:00 Test Item Value Reference Range Interpretation Comments Result (test code = No growth in 5 days 6463-4) [facility] [id number] 05:00:00 Test Item Value Reference Range Interpretation Comments CULTURE (BEAKER) (test No growth in 5 days code = 1095) POCT-GLUCOSE [id number] 21:02:00 Test Item Value Reference Range Interpretation Comments POC-GLUCOSE METER 117 mg/dL 70-110 H : TESTED A T [facility] 6720 (BEAKER) (test code = [facility], 153) 40616: Sand Slinger/Techni jamey ID = [id number] for BLAIRE GARRETT POCT-GLUCOSE [id number] 16:26:00 Test Item Value Reference Range Interpretation Comments POC-GLUCOSE METER 121 mg/dL 70-110 H : TESTED A T [facility] 6720 (BEAKER) (test code = [facility], 153) 51897: Sand Slinger/Techni jamey ID = [id number] for DERIK ALEXANDRA POCT-GLUCOSE [id number] 12:02:00 Test Item Value Reference Range Interpretation Comments POC-GLUCOSE METER 183 mg/dL 70-110 H : TESTED A T [facility] 6720 (BEAKER) (test code = [facility], 153) 06022: Sand Slinger/Techni jamey ID = [id number] for ROWDY RAMÍREZ, DERIK POCT-GLUCOSE [id number] 07:57:00 Test Item Value Reference Range Interpretation Comments POC-GLUCOSE METER 113 mg/dL 70-110 H : TESTED A T [facility] 6720 (BEAKER) (test code = [place], 1538) 79226: Sand Slinger/Techni jamey ID = [id number] for DERIK ALEXANDRA BASIC METABOLIC [id number] 05:44:00 Test Item Value Reference Range Interpretation [...] S NOT APPLICABLE FOR DIALYSIS PATIEN TS. Sand Slinger ID - PIAYA LCBC W/PLT COUNT & AUTO [id number] 05:08:00 Test Item Value Reference Range Interpretation [...] PERCENT (BEAKER) (test code = 2801) POCT-GLUCOSE [id number] 20:17:00 Test Item Value Reference Range Interpretation Comments POC-GLUCOSE METER 164 mg/dL 70-110 H : TESTED A T [facility] 6720 (BEAKER) (test code = [place], 1538) 66965: Sand Slinger/Techni jamey ID = [id number] for ALYSIA RENDON Hemoglobin and [id number] 18:31:00 Test Item Value Reference Range Interpretation Comments Hemoglobin (test code 8.5 See_Comment L [Auto mated = 786-4) message] The system which generated this result transmit ida reference range : 11.2 - 15.7 GM/ DL. The reference range was not u sed to interpret th is result as normal/abnormal . Hematocrit (test code 26.9 % 34.1-44.9 L = 4544-3) YAMIL (test code = YAMIL) Sand Slinger ID - [id number] Lab Interpretation Abnormal (test code = 35192-3) [facility] Angeles[facility]MOGLOBIN AND [id number] 18:31:00 Test Item Value Reference Range Interpretation Comments HEMOGLOBIN (BEAKER) (test code = 8.5 GM/DL 11.2-15.7 L 410) HEMATOCRIT (BEAKER) (test code = 26.9 % 34.1-44.9 L 411) Sand Slinger ID - [id number]-GLUCOSE [id number] 16:55:00 Test Item Value Reference Range Interpretation Comments POC-GLUCOSE METER 175 mg/dL 70-110 H : TESTED A T [facility] 6720 (BEAKER) (test code = [place] [facility], 153) 39819: Sand Slinger/Techni jamey ID = [id number] for REKHA ASHLEY, ABI POCT-GLUCOSE [id number] 12:00:00 Test Item Value Reference Range Interpretation Comments POC-GLUCOSE METER 188 mg/dL 70-110 H : TESTED A T [facility] 6720 (BEAKER) ([facility] = [facility], 153) 43705: Sand Slinger/Techni jamey ID = [id number] for REKHA ASHLEY, ABI POCT-GLUCOSE [id number] 08:10:00 Test Item Value Reference Range Interpretation Comments POC-GLUCOSE METER 98 mg/dL 70-110 : TESTED A T [facility] 6720 (BEAKER) ([facility] = [facility], 153) 52731: Sand Slinger/Techni jamey ID = [id number] for ALEKS S, ABI POCT-GLUCOSE [id number] 20:30:00 Test Item Value Reference Range Interpretation Comments POC-GLUCOSE METER 136 mg/dL 70-110 H : TESTED A T [facility] 6720 (BEAKER) (test code = [facility] [employer] [facility], 153) 86319: Sand Slinger/Techni jamey ID = [id number] for COURT RENDONHIA POCT-GLUCOSE [id number] 17:08:00 Test Item Value Reference Range Interpretation Comments POC-GLUCOSE METER 157 mg/dL 70-110 H : TESTED A T [facility] 6720 (BEAKER) (test code = [place], 1538) 17625: Sand Slinger/Techni jamey ID = [id number] for ANIL RANDOLPH POCT-GLUCOSE [id number] 11:35:00 Test Item Value Reference Range Interpretation Comments POC-GLUCOSE METER 97 mg/dL 70-110 : TESTED A T [facility] 6720 (BEAKER) (test code = [place] [facility], 1538) 96558: Sand Slinger/Techni jamey ID = [id number] for HAROLDO SANIL Hepatic function [id number] 05:17:00 Test Item Value Reference Range Interpretation Comments Protein, Total (test 5.5 See_Comment L [Autom ated code = 2885-2) message] The system which generated this result transmit ida reference range : 6.0 - 8.3 gm/dL . The reference range was not u sed to interpret th is result as normal/abnormal . Albumin (test code = 2.5 g/dL 3.5-5 L 06488-2) Total Bilirubin (test 0.5 mg/dL 0.2-1.2 code = 1975-2) Bilirubin, Direct 0.4 mg/dL 0.1-0.5 (test code = 1968-7) Alkaline Phosphatase 71 U/L 40-150 (test code = 6768-6) AST (test code = 20 U/L 5-34 1920-8) ALT (test code = <6 6-55 L 1742-6) YAMIL (test code = YAMIL) Sand Slinger ID - MARCELO W Lab Interpretation Abnormal (test code = 14190-1) [facility] Angeles[facility]ATIC FUNCTION [id number] 05:17:00 Test Item Value Reference Range Interpretation [...] code = < U/L 6-55 L 347) Sand Slinger VIELKA ROBERTSON WBASIC METABOLIC [id number] 05:13:00 Test Item Value Reference Range Interpretation [...] S NOT APPLICABLE FOR DIALYSIS PATIEN TS. Sand Slinger VIELKA ROBERTSON WProthrombin time/[id number] 04:50:00 Test Item Value Reference Interpretation Comments Range Protime (test code = 14.4 See_Comment H [Autom ated 3722-2) message] The system which generated this result transmitted reference range : 11.9 - 14.2 seconds. The reference range was not used to interpret this result as normal/abnormal . INR (test code = 1.2 See_Comment [Automated 6301-6) message] The system which generated this result transmitted reference range : <=5.9. The reference range was not used to interpret this result as normal/abnormal . YAMIL (test code = Effective 11/15/2018: YAMIL) PT Reference Range ChangeNew: 11.9-14.2 Previous: 11.7-14.7 RECOMMENDED COUMADIN/WARFARIN INR THERAPY RANGESSTANDARD DOSE: 2.0-3.0 Includes: PROPHYLAXIS for venous thrombosis, systemic embolization; TREATMENT for venous thrombosis and/or pulmonary embolus.HIGH RISK: Target INR is 2.5-3.5 for patients wiht mechanical heart valves. Lab Interpretation Abnormal (test code = 54857-4) [facility] AngelesPROTHROMBIN TIME/[id number] 04:50:00 Test Item Value Reference Range Interpretation [...] mechanical heart valves.CBC W/PLT COUNT & AUTO [id number] 04:32:00 Test Item Value Reference Range Interpretation [...] PERCENT (BEAKER) (test code = 2801) POCT-GLUCOSE [id number] 21:55:00 Test Item Value Reference Range Interpretation Comments POC-GLUCOSE METER 76 mg/dL 70-110 : TESTED A T [facility] 6720 (BEAKER) (test code = [facility], [facility]) 87879: Sand Slinger/Techni jamey ID = [id number] for SIMON REYNALDOMEJIA ANA POCT-GLUCOSE [id number] 17:42:00 Test Item Value Reference Range Interpretation Comments POC-GLUCOSE METER 91 mg/dL 70-110 : TESTED A T [facility] 6720 (BEAKER) (test code = [facility], 1538) 07821: Sand Slinger/Techni jamey ID = [id number] for HEAR ELIOT, DERIK POCT-GLUCOSE [id number] 12:44:00 Test Item Value Reference Range Interpretation Comments POC-GLUCOSE METER 81 mg/dL 70-110 : TESTED A T [facility] 6720 (BEAKER) (test code = [facility], 1538) 47357: Sand Slinger/Techni jamey ID = [id number] for HEAR NE, DERIK 2D Echo W/Doppler(CW/PW/Color)2019-09-27 11:02:24Ejection FractionSLEH ECHO HEARTLAB MKCKESSON CPACSInterface, External Ris In - 09/27/2019 11:02 AM C DTTransthoracic Echocardiography Report (TTE) Demographics Patient Name SEAN MOULTON Date ofStudy 09/27/2019 HARMEET Gender Female Visit Number [id number] Race Room Number 922 Number Date of 1940 Referring Ciara Barry Physician MD Jacinto Age 79 year(s) Book Solicitor Mary Murillo [facility] Interpreting Quincy Guillaume MD Physician Fellow Joanna [...] TR Velocity: 2.66 m/s TR Gradient: 28.37 mmHgChildren's Hospital Los AngelesPOCT-GLUCOSE METER 2019-09-27 08:13:00 Test Item Value Reference Range Interpretation Comments POC-GLUCOSE METER 81 mg/dL 70-110 : TESTED A T [facility] 6720 (BEAKER) (test code = JUAN MANUELELIOT Figueroa [facility], 1538) 25757: Sand Slinger/Techni jamey ID = [id number] for DERIK PEDRO BASIC METABOLIC [id number] 05:48:00 Test Item Value Reference Range Interpretation [...] S NOT APPLICABLE FOR DIALYSIS PATIEN TS. Sand Slinger ID Cristina MUHAMMAD LHEPATIC FUNCTION [id number] 05:48:00 Test Item Value Reference Range Interpretation [...] code = < U/L 6-55 L 347) Sand Slinger VIELKA MUHAMMAD [id number] 05:47:00 Test Item Value Reference Range Interpretation Comments Phosphorus (test code = 2.6 mg/dL 2.3-4.7 2777-1) YAMIL (test code = YAMIL) Sand Slinger VIELKA Cristina MUHAMMAD L Lab Interpretation (test Normal code = 61293-5) [facility] AngelesPHOSPHORUS2020-04-09 05:47:00 Test Item Value Reference Range Interpretation Comments PHOSPHORUS (BEAKER) (test code = 2.6 mg/dL 2.3-4.7 604) Sand Slinger ID Cristina MUHAMMAD LPROTHROMBIN TIME/[id number] 05:20:00 Test Item Value Reference Range Interpretation [...] mechanical heart valves.CBC W/PLT COUNT & AUTO [id number] 05:11:00 Test Item Value Reference Range Interpretation [...] PERCENT (BEAKER) (test code = 2801) POCT-GLUCOSE [id number] 21:09:00 Test Item Value Reference Range Interpretation Comments POC-GLUCOSE METER 125 mg/dL 70-110 H : TESTED A T [facility] 6720 (BEAKER) (test code = [facility], 1538) 79212: Sand Slinger/Techni jamey ID = [id number] for NEGAR KHALIL POCT-GLUCOSE [id number] 17:10:00 Test Item Value Reference Range Interpretation Comments POC-GLUCOSE METER 93 mg/dL 70-110 : TESTED A T [facility] 6720 (BEAKER) (test code = [facility], 1538) 35859: Sand Slinger/Techni jamey ID = [id number] for DERIK PEDRO Hemoglobin [id number] 12:38:00 Test Item Value Reference Range Interpretation Comments Hemoglobin A1C (test code = 4548-4) 5.6 % 4.3-6.1 Lab Interpretation (test code = Normal 80164-0) [facility] AngelesHEMOGLOBIN [id number] 12:38:00 Test Item Value Reference Range Interpretation Comments HEMOGLOBIN A1C (BEAKER) (test code = 5.6 % 4.3-6.1 368) POCT-GLUCOSE [id number] 11:50:00 Test Item Value Reference Range Interpretation Comments POC-GLUCOSE METER 97 mg/dL 70-110 : TESTED A T [facility] 6720 (BEAKER) (test code = [facility], 1538) 11972: Sand Slinger/Techni jamey ID = [id number] for Thomas Light Hepatitis B surface [id number] 10:03:00 Test Item Value Reference Range Interpretation Comments HBsAg Screen (test code = Nonreactive Nonreactive 5195-3) YAMIL (test code = YAMIL) Sand Slinger ID - HANNAH [place] Lab Interpretation (test Normal code = 08145-0) [facility] AngelesHEPATITIS B SURFACE [id number] 10:03:00 Test Item Value Reference Range Interpretation Comments HEPATITIS B SURFACE ANTIGEN (2) Nonreactive Nonreactive (BEAKER) (test code = 2585) Sand Slinger ID - HANNAH CCBC W/PLT COUNT & AUTO [id number] 09:36:00 Test Item Value Reference Range Interpretation [...] 0-1 PERCENT (BEAKER) (test code = 2801) [id number] 09:33:00 Test Item Value Reference Range Interpretation Comments Magnesium (test code = 2.0 mg/dL 1.6-2.6 39017-9) YAMIL (test code = YAMIL) Sand Slinger ID - HANNAH C Lab Interpretation (test Normal code = 43337-1) [facility] AngelesMAGNESIUM2020-04-08 09:33:00 Test Item Value Reference Range Interpretation Comments MAGNESIUM (BEAKER) (test code = 2.0 mg/dL 1.6-2.6 627) Sand Slinger ID - HANNAH CPOCT-GLUCOSE [id number] 07:55:00 Test Item Value Reference Range Interpretation Comments POC-GLUCOSE METER 65 mg/dL 70-110 L : [facility] (BEAKER) (test code = [place], 1538) 94110: Sand Slinger/Techni jamey ID = [id number] for DERIK PEDRO [id number] 05:36:00 Test Item Value Reference Range Interpretation Comments Ferritin (test code = 1973.82 ng/mL 5-275 H 2276-4) YAMIL (test code = YAMIL) Sand Slinger ID Cristina WILKINSON M Lab Interpretation (test Abnormal code = 91608-3) [facility] AngelesFERRITIN2020-04-08 05:36:00 Test Item Value Reference Range Interpretation Comments FERRITIN (BEAKER) (test code = 1973.82 ng/mL 5.00-275.00 H 361) Sand Slinger ID Cristina WILKINSON MVitamin B12 and [id number] 05:32:00 Test Item Value Reference Range Interpretation Comments Vitamin B12 (test 1334 pg/mL 213-816 H code = 2132-9) Folate (test code = 6.40 ng/mL See_Comment L [Automa ida 2284-8) message] The system which generated this result transmit ida reference range : >=7.00. The reference range was not used to interpret this result as normal/abnormal . YAMIL (test code = YAMIL) Sand Slinger ID - MINH Contreras Lab Interpretation Abnormal (test code = 21985-2) [facility] AngelesVITAMIN B12 AND [id number] 05:32:00 Test Item Value Reference Range Interpretation Comments VITAMIN B12 (BEAKER) (test code = 1334 pg/mL 213-816 H 774) FOLATE (BEAKER) (test code = 362) 6.40 ng/mL >=7.00 L Sand Slinger ID - MINH MRAD, HIP, 2 VIEWS, [id number] 05:18:00Reason for exam:->fractureFINAL REPORT CLINICAL HISTORY: "Fracture" COMPARISON: None. FINDINGS: 2 views of the left hip are submitted. There is no acute fracture or malalignment. There are fixation screws in the femoral neck which appear properly positioned. Surgical joselin overlie the left lateral hip. Signed: Bri Landers Verified Date/Time: 09/26/2019 05:18:36 Electronically signedby: BRI LANDERS M.D. on 09/26/2019 05:18 AMXR hip 2 views [id number] 05:18:00Interface, External Ris In - 09/26/2019 5:20 AM CDTFINAL REPORT CLINICAL HISTORY: "Fracture" COMPARISON: None. FINDINGS: 2 views of the left hip are submitted. There is no acute fracture or malalignment. There are fixation screws in the femoral neck which appear properly positioned. Surgical joselin overlie the left lateral hip. Signed: Bri Landers Verified Date/Time: 09/26/2019 05:18:36 [facility], % sat. (without ferritin)2019-09-26 05:09:00 Test Item Value Reference Range Interpretation Comments Iron (test code = 2498-4) 16.0 ug/dL 40-160 L TIBC (test code = 2500-7) 119 ug/dL 250-450 L Iron % Saturation (test 13 % 20-55 L code = 2502-3) YAMIL (test code = YAMIL) Sand Slinger ID - MINH M Lab Interpretation (test Abnormal code = 60303-2) [facility] Angeles[facility]ON, TIBC, % SAT. (WITHOUT FERRITIN)2019-09-26 05:09:00 Test Item Value Reference Range Interpretation Comments IRON (BEAKER) (test code = 547) 16.0 ug/dL 40.0-160.0 L TOTAL IRON BINDING CAPACITY 119 ug/dL 250-450 L (BEAKER) (test code = 769) IRON % SATURATION (2) (BEAKER) 13 % 20-55 L (test code = 2590) Sand Slinger VIELKA WILKINSON MBASIC METABOLIC [id number] 02:38:00 Test Item Value Reference Range Interpretation [...] S NOT APPLICABLE FOR DIALYSIS PATIEN TS. Sand Slinger VIELKA WILKINSON MPROTHROMBIN TIME/[id number] 02:36:00 Test Item Value Reference Range Interpretation [...] for patients wiht mechanical heart valves.HEPATIC FUNCTION [id number] 02:32:00 Test Item Value Reference Range Interpretation [...] (test code = 6 U/L 6-55 347) Sand Slinger ID - MINH ARMIDA, [id number] 02:31:00 Test Item Value Reference Range Interpretation Comments ABO Grouping (test code = 2588) O Rh Factor (test code = 2589) POS [facility] W/PLT COUNT & AUTO [id number] 02:20:00 Test Item Value Reference Range Interpretation [...] (BEAKER) (test code = 2801) Comprehensive metabolic [id number] 23:10:00 Test Item Value Reference Range Interpretation Comments Protein, Total (test 6.0 See_Comment [Autom ated code = 2885-2) message] The system which generated this result transmit ida reference range : 6.0 - 8.3 gm/dL . The reference range was not u sed to interpret th is result as normal/abnormal . Albumin (test code = 2.8 g/dL 3.5-5 L 66718-2) Alkaline Phosphatase 88 U/L 40-150 (test code = 6768-6) Total Bilirubin (test 0.5 mg/dL 0.2-1.2 code = 1975-2) Sodium (test code = 134 meq/L 136-145 L 2951-2) Potassium (test code 3.1 meq/L 3.5-5.1 L = 2823-3) Chloride (test code = 101 meq/L 98-107 5-0) CO2 (test code = 19 meq/L 22-29 L 8-9) BUN (test code = 45 mg/dL 7-21 H 3094-0) Creatinine (test code 5.17 mg/dL 0.57-1.25 H = 2160-0) Glucose (test code = 77 mg/dL 70-105 2345-7) Calcium (test code = 7.6 mg/dL 8.4-10.2 L 39500-8) AST (test code = 20 U/L 5-34 1920-8) ALT (test code = <6 6-55 L 1742-6) EGFR (test code = 8 mL/min/1.73 [place] [address]-6) NOT ACCURATE CREATININE CLEARANCE IN PREDICTING GLOMERULAR FILTRATION RATE . ESTIMATED GFR I S NOT APPLICABLE FOR DIALYSIS PATIEN TS. YAMIL (test code = YAMIL) Sand Slinger ID - BS Lab Interpretation Abnormal (test code = 35617-6) [facility] AngelesCOMPREHENSIVE METABOLIC [id number] 23:10:00 Test Item Value Reference Range Interpretation [...] S NOT APPLICABLE FOR DIALYSIS PATIEN TS. Sand Slinger ID - BSPROTHROMBIN TIME/[id number] 23:07:00 Test Item Value Reference Range Interpretation [...] mechanical heart valves.CBC W/PLT COUNT & AUTO [id number] 22:49:00 Test Item Value Reference Range Interpretation [...] PERCENT (BEAKER) (test code = 2801) POCT-GLUCOSE [id number] 20:35:00 Test Item Value Reference Range Interpretation Comments POC-GLUCOSE METER 102 mg/dL 70-110 : TESTED A T [facility] 6720 (BEAKER) (test code = [place], 1538) 02598: Sand Slinger/Techni jamey ID = [id number] [facility]
--- NOTE | 2020-09-10 17:14 | RAD REPORT ---
EXAM DESCRIPTION: CT - Stone Protocol - 09/10/2020 5:04 pm CLINICAL HISTORY: ABD PAIN COMPARISON: Abdomen Pelvis Wo Contrast dated 09/25/2019; CTSTONE PROTOCOL dated 01/19/2013 TECHNIQUE: Axial [address] imaging of the abdomen and pelvis was performed without IV contrast. No IV contrast was given because of allergy, abnormal renal function, patient refusal or physician re quest. No oral contrast administered. All CT scans are performed using dose optimization technique as appropriate and may include automated exposure control or mA/KV adjustment according to patient size. FINDINGS: Trace amount of pleural fluid in the left base with trace atelectasis change. Infiltrate i s unlikely. Borderline to mild cardiomegaly is present with minimal pericardial effusion. Left atrial enlargement is present. There are dense coronary artery calcifications present. The liver, spleen and pancreas show no suspicious findings on non-contrast imaging. Gallbladder is di stended but not dilated. No acute gallbladder or biliary tree abnormality seen. No hydronephrosis or suspicious renal mass. No significant adrenal finding. Isodense renal masses an d pyelonephritis cannot be excluded in the absence of IV contrast. The urinary bladder is without sig nificant finding. No gastric dilatation or gastric wall thickening seen. Fluid is present in the lumen. Near the duoden al bulb and proximal C-loop there is a 3 centimeter rounded fluid attenuation mass larger but not new from prior imaging. This could be focal fluid distention of the duodenal bulb. The duodenal mass is not identified. Fluid-filled diverticulum is also possible. No mass, edema or acute finding along the duodenal C-loop otherwise noted. No dilated small bowel loops. Moderate stool volume is seen in the colon from cecum through sigmoid c olon. Appendix is normal. A large amount of stool dilates the rectum to 8.5 cm. No free air, free fluid or inflammatory stranding. No hernia, mass or bulky lymphadenopathy. No suspicious bony findings. Prominent disc and bony degenerative changes are present. IMPRESSION: No bowel obstruction, free air or surgically emergent finding identifiable. A 3 centimeter round fluid attenuation mass along the duodenal C-loop is favored to be a fluid-filled diverticulum. Fluid distended duodenal bulb is a lesser consideration. Duodenal stricture not entire ly excluded no mass of the pancreas or duodenum seen. Large amount of stool dilates the rectum to 8.5 centimeter diameter. Full assessment is limited is the absence of IV contrast.
[2020-09-10 18:59] LABS: RBC Red Blood Cell Count 3.65 M/uL (3.86-4.86)
[2020-09-10 19:00] LABS: Absolute Lymphocytes (CBC) 0.8 K/uL (0.7-4.9); Lymphocytes % 15.7 % (15.3-44.8); MPV 8.7 fL (7.6-11.3)
[2020-09-10 19:20] LABS: Albumin 3.3 g/dL (3.4-5.0); Bilirubin Direct 0.1 mg/dL (0-0.2); Bilirubin Total 0.3 mg/dL (0.2-1.0); Potassium 4.2 mmol/L (3.5-5.1); Protein, Total 7.7 g/dL (6.4-8.2)
--- NOTE | 2020-09-10 19:48 | EDPHYS ---
Physician Documentation [facility] Name: Aury Garcia Age: 80 yrs Sex: Female : 1940 Arrival Date: 09/10/2020 Time: 14:17 Bed 26 Private MD: Racquel Marshall ED Physician Ronni Moore HPI: 09/10 20:00 This 80 yrs old Female presents to ER via Wheelchair with complaints of kb Vomiting. 20:00 The patient presents to the emergency department with nausea, vomiting. Onset: The kb symptoms/episode began/occurred yesterday. Possible causes: unknown. The symptoms are aggravated by nothing. The symptoms are alleviated by nothing. Associated signs and symptoms: Pertinent positives: nausea, vomiting. Severity of symptoms: At their worst the symptoms were mild moderate in the emergency department the symptoms are unchanged. The patient has not experienced similar symptoms in the past. The patient has not recently seen a physician. Family reports pt has had nausea and vomiting since yesterday so she missed dialysis. Still having vomiting today. . Historical: - Allergies: 14:57 Codeine; ca1 14:57 Lisinopril; ca1 14:57 Tramadol HCl; ca1 - Home Meds: 14:57 hydralazine 100 mg oral tab 1 tab 2 times per day [Active]; aspirin 81 mg Oral TbEC 1 ca1 tab once daily [Active]; atorvastatin 20 mg Oral tab 1 tab once daily [Active]; carvedilol 12.5 mg Oral tab 1 tab every 12 hours [Active]; latanoprost 0.005 % ophthalmic drop 1 drop once daily [Active]; levothyroxine 50 mcg tab 1 tab once daily [Active]; Novolog 100 unit/mL Sub-Q soln 5 unit [Active]; pantoprazole 40 mg Oral TbEC 1 tab once daily [Active]; pentoxifylline 400 mg Oral TbER 1 tab 2 times per day [Active]; sevelamer carbonate 800 mg Oral tab 1 tab 3 times per day [Active]; - PMHx: 14:57 chronic kidney disease; CVA; Dementia; Diabetes - IDDM; Dialysis; Hyperlipidemia; ca1 Hypertension; Hypothyroidism; TIA; - PSHx: 14:57 Hip surgery; ca1 - Immunization history:: Flu vaccine is not up to date. - Social history:: Smoking status: Patient denies any tobacco usage or history of. ROS: 19:37 Constitutional: Negative for fever, chills, and weight loss, Cardiovascular: Negative kb for chest pain, palpitations, and edema, Respiratory: Negative for shortness of breath, cough, wheezing, and pleuritic chest pain, MS/Extremity: Negative for injury and deformity, Skin: Negative for injury, rash, and discoloration, Neuro: Negative for headache, weakness, numbness, tingling, and seizure. 19:37 Abdomen/GI: Positive for nausea and vomiting, Negative for abdominal pain, diarrhea, constipation. Exam: 19:58 Constitutional: This is a well developed, well nourished patient who is awake, alert, kb and in no acute distress. Head/Face: Normocephalic, atraumatic. Respiratory: Respirations even and unlabored. No increased work of breathing, no retractions or nasal flaring. Skin: Warm, dry with normal turgor. Normal color. MS/ Extremity: Pulses equal, no cyanosis. Neurovascular intact. Full, normal range of motion. 19:58 Abdomen/GI: Inspection: abdomen appears normal, Bowel sounds: normal, Palpation: soft, in all quadrants, mild abdominal tenderness, in all quadrants. Vital Signs: 14:50 BP 203 / 67; Pulse 56; Resp 18 S; Temp 98(TE); Pulse Ox 98% on R/A; Weight 45.36 kg ca1 (R); Height 4 ft. 11 in. (149.86 cm) (R); 16:50 BP 229 / 64; Pulse 62; Resp 18; Pulse Ox 98% on R/A; zb 18:20 BP 169 / 74; Pulse 57; Resp 16; Pulse Ox 98% on R/A; zb 19:00 BP 222 / 65; Pulse 60; Resp 18; Pulse Ox 98% on R/A; zb 20:00 BP 190 / 59; Pulse 51; Resp 18; Pulse Ox 98% on R/A; zb 21:00 BP 208 / 76; Pulse 58; Resp 16; Pulse Ox 98% on R/A; zb 22:00 BP 217 / 69; Pulse 63; Resp 18; Pulse Ox 98% on R/A; zb 22:19 BP 211 / 67; Pulse 56; Resp 18; Pulse Ox 99% on R/A; zb 22:36 BP 203 / 55; Pulse 55; Resp 16; Pulse Ox 97% on R/A; zb 22:56 BP 179 / 54; Pulse 61; Resp 18; Pulse Ox 98% on R/A; zb 23:14 BP 198 / 73; Pulse 61; Resp 18; Pulse Ox 97% on R/A; zb 14:50 Body Mass Index 20.20 (45.36 kg, 149.86 cm) ca1 MDM: 16:41 Patient medically screened. kb 19:35 Data reviewed: vital signs, nurses notes. Data interpreted: Pulse oximetry: on room air kb is 98 %. Interpretation: normal. Counseling: I had a detailed discussion with the patient and/or guardian regarding: the historical points, exam findings, and any diagnostic results supporting the discharge/admit diagnosis, lab results, radiology results, the need for further work-up and treatment in the hospital. 19:59 Physician consultation: Kareem VU regarding admission, to the telemetry unit. and kb will see patient in ED. 09/10 16:50 Order name: Basic Metabolic Panel 09/10 16:50 Order name: CBC with Diff 09/10 16:50 Order name: Hepatic Function; Complete Time: 19:24 kb 09/10 16:50 Order name: Lipase; Complete Time: 19:24 kb 09/10 16:50 Order name: Basic Metabolic Panel; Complete Time: 19:24 EDMS 09/10 16:50 Order name: CBC with Automated Diff; Complete Time: 19:14 EDMS 09/10 16:50 Order name: IV Saline Lock; Complete Time: 18:48 kb 09/10 16:50 Order name: CT Stone Protocol; Complete Time: 17:16 kb 09/10 21:57 Order name: CONS Physician Consult EDSC 09/10 23:01 Order name: SARS-COV-2 RT PCR EDSC 09/10 16:50 Order name: Labs collected and sent; Complete Time: 18:48 kb Administered Medications: 18:45 Drug: Zofran (Ondansetron) 4 mg Route: IVP; Site: left antecubital; zb 21:19 Drug: Lasix 80 mg Route: IVP; Site: left antecubital; zb 22:54 Follow up: Response: No adverse reaction; Marked relief of symptoms; Blood pressure is zb lowered 21:19 Drug: hydrALAZINE 10 mg Route: IV; Rate: calculated rate; Site: left antecubital; zb 22:54 Follow up: Response: No adverse reaction; Marked relief of symptoms; Blood pressure is zb lowered; IV Status: Completed infusion Disposition: 09/11 08:05 Co-signature as Attending Physician, Ronni Moore MD I agree with the assessment and kdr plan of care. Disposition: 09/10/20 19:47 Hospitalization ordered by Tony Dempsey for Observation. Preliminary diagnosis are Essential (primary) hypertension, End stage renal disease, Nausea and vomiting. - Bed requested for Telemetry/MedSurg (observation). - Status is Observation. bb - Condition is Stable. - Problem is new. - Symptoms are unchanged. Signatures: Dispatcher [employer] EDMS Bety Patrick, ADMINISTRATIVE ACCOUNTANT-C ADMINISTRATIVE ACCOUNTANT-CkRonni Milton MD MD kdr Ballard, Brenda, RN RN bb Mariah Marie RN RN ca1 Dale, Rhonda, RN RN rd1 Rica Sanchez RN RN zb Corrections: (The following items were deleted from the chart) 09/10 19:31 19:24 Fluid Challenge ordered. kb kb 22:06 19:40 CORONAVIRUS+MR.LAB.BRZ ordered. EDMS EDMS 23:08 19:47 Hospitalization Ordered by Tony Dempsey for Observation. Preliminary diagnosis rd1 is Essential (primary) hypertension; End stage renal disease; Nausea and vomiting. Bed requested for Telemetry/MedSurg (observation). Status is Observation. Condition is Stable. Problem is new. Symptoms are unchanged. kb 09/11 00:58 09/10 23:08 09/10/2020 19:47 Hospitalization Ordered by Tony Dempsey for Observation. bb Preliminary diagnosis is Essential (primary) hypertension; End stage renal disease; Nausea and vomiting. Bed requested for Telemetry/MedSurg (observation). Status is Observation. Condition is Stable. Problem is new. Symptoms are unchanged. rd1
--- NOTE | 2020-09-10 19:48 | ER ---
Nurse's Notes [facility] Name: Aury Garcia Age: 80 yrs Sex: Female : 1940 Arrival Date: 09/10/2020 Time: 14:17 Bed 26 Private MD: Racquel Marshall Diagnosis: Essential (primary) hypertension;End stage renal disease;Nausea and vomiting Presentation: 09/10 14:50 Chief complaint: Patient's son or daughter states: Daughter: Was about to start ca1 dialysis at 1400 today when she started throwing up. Dialysis TThS. Last dialysis was . Vomiting x 2 episodes since 1400 today. She was okay and did not feel sick for the past few days. Coronavirus screen: Client denies travel out of the [place] in the last 14 days. vomiting. Client presents with at least one sign or symptom that may indicate coronavirus-19. Standard/surgical mask placed on the client. Provider contacted for isolation considerations. Ebola Screen: Patient negative for fever greater than or equal to 101.5 degrees Fahrenheit, and additional compatible Ebola Virus Disease symptoms Patient denies exposure to infectious person. Patient denies travel to an Ebola-affected area in the 21 days before illness onset. No symptoms or risks identified at this time. Initial Sepsis Screen: Does the patient meet any 2 criteria? No. Patient's initial sepsis screen is negative. Does the patient have a suspected source of infection? No. Patient's initial sepsis screen is negative. Risk Assessment: Do you want to hurt yourself or someone else? Patient reports no desire to harm self or others. Onset of symptoms was September 10, 2020 at 14:00. 14:50 Method Of Arrival: Wheelchair ca1 14:50 Acuity: JOSE 2 ca1 14:57 Chief complaint: Daughter states, "she has dementia and this is her normal mentation". ca1 Historical: - Allergies: 14:57 Codeine; ca1 14:57 Lisinopril; ca1 14:57 Tramadol HCl; ca1 - Home Meds: 14:57 hydralazine 100 mg oral tab 1 tab 2 times per day [Active]; aspirin 81 mg Oral TbEC 1 ca1 tab once daily [Active]; atorvastatin 20 mg Oral tab 1 tab once daily [Active]; carvedilol 12.5 mg Oral tab 1 tab every 12 hours [Active]; latanoprost 0.005 % ophthalmic drop 1 drop once daily [Active]; levothyroxine 50 mcg tab 1 tab once daily [Active]; Novolog 100 unit/mL Sub-Q soln 5 unit [Active]; pantoprazole 40 mg Oral TbEC 1 tab once daily [Active]; pentoxifylline 400 mg Oral TbER 1 tab 2 times per day [Active]; sevelamer carbonate 800 mg Oral tab 1 tab 3 times per day [Active]; - PMHx: 14:57 chronic kidney disease; CVA; Dementia; Diabetes - IDDM; Dialysis; Hyperlipidemia; ca1 Hypertension; Hypothyroidism; TIA; - PSHx: 14:57 Hip surgery; ca1 - Immunization history:: Flu vaccine is not up to date. - Social history:: Smoking status: Patient denies any tobacco usage or history of. Screenin:50 Abuse screen: Denies threats or abuse. Denies injuries from another. Nutritional zb screening: No deficits noted. Tuberculosis screening: No symptoms or risk factors identified. Fall Risk Fall in past 12 months (25 points). Secondary diagnosis (15 points) impaired mobility, IV access (20 points). Ambulatory Aid- None/Bed Rest/Nurse Assist (0 pts). Gait- Weak (10 pts.). Mental Status- Oriented to own ability (0 pts). Total Calvillo Fall Scale indicates High Risk Score (45 or more points). Fall prevention measures have been instituted. Side Rails Up X 2 Placed Close to Nursing Station Frequent Obs/Assessments Occuring As available patient and family educated on Fall Prevention Program and Strategies. Assessment: 16:48 General: Appears in no apparent distress. uncomfortable, Behavior is cooperative, zb quiet, Denies fever, feeling ill, fatigue, chills. Pain: Denies pain. Neuro: Level of Consciousness is awake, alert, Oriented to person, place, time, situation. Cardiovascular: Reports nausea, vomiting, Denies chest pain, fatigue, lightheadedness, shortness of breath, Patient's skin is warm and dry. Respiratory: Airway is patent Respiratory effort is even, unlabored. GI: Abdomen is flat, non-distended, Reports nausea, vomiting. : No signs and/or symptoms were reported regarding the genitourinary system. Derm: Skin is intact, is healthy with good turgor, Skin is dry, Skin is normal, Skin temperature is warm. Musculoskeletal: Range of motion: limited in bilateral legs. 18:30 Reassessment: Patient appears in no apparent distress at this time. unable to get labs. zb notified charge nurse. 18:45 Reassessment: Patient appears in no apparent distress at this time. Patient and/or zb family updated on plan of care and expected duration. Pain level reassessed. Patient is alert, oriented x 3, equal unlabored respirations, skin warm/dry/pink. patient awaiting lab results. 19:30 Reassessment: Patient appears in no apparent distress at this time. Patient and/or zb family updated on plan of care and expected duration. Pain level reassessed. Patient is alert, oriented x 3, equal unlabored respirations, skin warm/dry/pink. no change at this time. pt resting quietly. 20:30 Reassessment: Patient appears in no apparent distress at this time. Patient and/or zb family updated on plan of care and expected duration. Pain level reassessed. Patient is alert, oriented x 3, equal unlabored respirations, skin warm/dry/pink. 21:30 Reassessment: Patient appears in no apparent distress at this time. Patient and/or zb family updated on plan of care and expected duration. Pain level reassessed. Patient is alert, oriented x 3, equal unlabored respirations, skin warm/dry/pink. 22:27 Reassessment: Per hospitalist patient given blood pressure medications. zb 22:57 Reassessment: blood pressure has normalized with medication. patient placed on bedpan for urine output. Vital Signs: 14:50 BP 203 / 67; Pulse 56; Resp 18 S; Temp 98(TE); Pulse Ox 98% on R/A; Weight 45.36 kg ca1 (R); Height 4 ft. 11 in. (149.86 cm) (R); 16:50 BP 229 / 64; Pulse 62; Resp 18; Pulse Ox 98% on R/A; zb 18:20 BP 169 / 74; Pulse 57; Resp 16; Pulse Ox 98% on R/A; zb 19:00 BP 222 / 65; Pulse 60; Resp 18; Pulse Ox 98% on R/A; zb 20:00 BP 190 / 59; Pulse 51; Resp 18; Pulse Ox 98% on R/A; zb 21:00 BP 208 / 76; Pulse 58; Resp 16; Pulse Ox 98% on R/A; zb 22:00 BP 217 / 69; Pulse 63; Resp 18; Pulse Ox 98% on R/A; zb 22:19 BP 211 / 67; Pulse 56; Resp 18; Pulse Ox 99% on R/A; zb 22:36 BP 203 / 55; Pulse 55; Resp 16; Pulse Ox 97% on R/A; zb 22:56 BP 179 / 54; Pulse 61; Resp 18; Pulse Ox 98% on R/A; zb 23:14 BP 198 / 73; Pulse 61; Resp 18; Pulse Ox 97% on R/A; zb 14:50 Body Mass Index 20.20 (45.36 kg, 149.86 cm) ca1 ED Course: 14:17 Patient arrived in ED. am2 14:18 Racquel Marshall MD is Private Physician. am2 14:55 Triage completed. ca1 14:57 Arm band placed on right wrist. ca1 16:41 Bety Patrick FNP-C is PHCP. kb 16:41 Ronni Moore MD is Attending Physician. kb 16:48 Rica Sanchez RN is Primary Nurse. zb 17:00 Missed attempt(s): 20 gauge in right antecubital area. 22 gauge in right antecubital zb area. 17:03 CT Stone Protocol In Process Unspecified. EDMS 19:00 Inserted saline lock: 24 gauge in left antecubital area, using aseptic technique. Blood zb collected. 19:22 Notified Nurse Practitioner and/or Physician Power And Recovery Supervisor of a critical lab result(s), bb Creatinine of 5.78 Bety Patrick STREETCAR REPAIRER notified. 19:47 Tony Dempsey is Hospitalizing Provider. kb 23:16 Patient has correct armband on for positive identification. Placed in gown. Bed in low zb position. Call light in reach. Side rails up X 1. bus driver/monitor on. Pulse ox on. NIBP on. Door closed. Noise minimized. 23:30 No provider procedures requiring assistance completed. zb 23:31 Patient admitted, IV remains in place. zb Administered Medications: 18:45 Drug: Zofran (Ondansetron) 4 mg Route: IVP; Site: left antecubital; zb 21:19 Drug: Lasix 80 mg Route: IVP; Site: left antecubital; zb 22:54 Follow up: Response: No adverse reaction; Marked relief of symptoms; Blood pressure is zb lowered 21:19 Drug: hydrALAZINE 10 mg Route: IV; Rate: calculated rate; Site: left antecubital; zb 22:54 Follow up: Response: No adverse reaction; Marked relief of symptoms; Blood pressure is zb lowered; IV Status: Completed infusion Outcome: 19:47 Decision to Hospitalize by Provider. kb 23:31 Admitted to Med/surg accompanied by tech, room 223, with chart, Report called to jayme Rodarte RN 23:31 Condition: stable 23:31 Instructed on the need for admit, Demonstrated understanding of instructions. 09/11 00:58 Patient left the ED. bb Signatures: Dispatcher [employer] EDMS Bety Patrick, NAJMA-C NAJMA-Barbara Duncan RN RN bb Birdie Meng am2 Mariah Marie RN RN ca1 Rica Sanchez RN RN zb Corrections: (The following items were deleted from the chart) 09/10 14:55 14:50 BP 203 / 67; Pulse 56bpm; Resp 18bpm; Spontaneous; Pulse Ox 98% RA; Temp 98F ca1 Temporal; 54.43 kg Reported; Height 4 ft. 11 in. Reported; BMI: 24.2; ca1
[2020-09-10] MEDS ORDERED: ONDANSETRON 4 MG/2 ML VIAL ONE (20:02)
[2020-09-10] MEDS ORDERED: FUROSEMIDE 100 MG/10 ML VIAL IV ONE (22:35)
[2020-09-10] MEDS ORDERED: HYDRALAZINE HCL 20 MG/ML VIAL ONE (22:35)
[2020-09-11] MEDS ORDERED: ONDANSETRON 4 MG/2 ML VIAL IV PRN (00:32)
[2020-09-11] MEDS ORDERED: ACETAMINOPHEN 500 MG TAB PO PRN (00:32)
[2020-09-11] MEDS ORDERED: HYDRALAZINE HCL 20 MG/ML VIAL IV PRN ×2 (01:38→13:21)
[2020-09-11] MEDS: HEPARIN 5000 UNIT/ML 1 ML VIAL SQ SCH ×3 (01:43→17:00)
[2020-09-11 02:59] VITALS: BMI 13.7
--- NOTE | 2020-09-11 04:35 | P.HP ---
Certification for Inpatient Patient admitted to: Observation With expected LOS: <2 Midnights Patient will require the following post-hospital care: None Practitioner: I am a practitioner with admitting privileges, knowledge of patient current condition, hospital course, and medical plan of care. Services: Services provided to patient in accordance with Admission requirements found in Title 42 Section 412.3 of the Code of Federal Regulations <[email or web address] S - Last Filed: 09/11/20 04:54> Patient History Date of Service: 09/11/20 Primary Care Provider: Dr. Delcid Reason for admission: missed dialysis, vomiting History of Present Illness: Ms. Garcia is a 80 yo F with ESRD on HD, DM, HTN, and anemia here today after missing dialysis twice. Patient is poor historian, obtained history from daughter. Per daughter, she missed dialysis Tuesday and Tuesday because no one could drive her. They took her to dialysis today but then she started vomiting and was brought here. She vomited 1x. Denies blood, nausea, and abdominal pain. CT scan shows no bowel obstruction, free air or surgically emergent finding. A 3cm round fluid attenuation mass along the duodenal C loop is favored to be a fluid filled diverticulum. Large amount of stool dilates rectum to 8.5 cm diameter. BP elevated to 222/65. Cr 5.78. BUN 94. GFR 7. Glu 135. - Past Medical/Surgical History Has patient received pneumonia vaccine in the past: Yes Diabetic: Yes -: HTN,IDDM,CVA -: kidney failure -: PNE -: hx of left lower leg wound-healed -: ESRD on HD -: HLD -: LEFT EYE CATARACT -: HYPOTHYROIDISM -: HD ACCESS -left upper chest -: BROKEN HIP -: anemia -: HD ACCESS PLACEMENT -: hip replacement Psychosocial/ Personal History: Patient lives with her daughter - Family History Mother -: Heart disease - Social History Smoking Status: Former smoker Alcohol use: No CD- Drugs: No Caffeine use: No Place of Residence: Home <Kareem Joy - Last Filed: 09/11/20 04:54> Date of Service: 09/11/20 <alexus pena - Last Filed: 09/11/20 14:28> Allergies codeine Allergy (Intermediate, Verified 04/27/20 00:35) Itching/Hives/Rash Home Medications: Aspirin 120 mg PO DAILY 10/31/19 Atorvastatin Calcium [Lipitor*] 20 mg PO BEDTIME 10/31/19 Pantoprazole [Protonix Tab*] 40 mg PO DAILY 10/31/19 Pentoxifylline 400 mg PO BID 10/31/19 Hydralazine [Apresoline*] 100 mg PO TID 04/27/20 Latanoprost/Pf [Latanoprost 0.005% Eye Drop] 1 drop LEFT EYE BEDTIME 04/27/20 Sevelamer Carbonate 1 tab PO TID 04/27/20 carvediloL [Carvedilol] 1 tab PO BID 08/06/20 Insulin -Regular Human [Novolin -R*] 5 unit SQ BID 09/11/20 Sertraline [Zoloft] 50 mg PO DAILY 09/11/20 Review of Systems General: Unremarkable Eyes: Unremarkable ENT: Unremarkable Respiratory: Unremarkable Cardiovascular: Unremarkable Gastrointestinal: Vomiting Genitourinary: Unremarkable Musculoskeletal: Unremarkable Integumentary: Unremarkable Neurological: Unremarkable Lymphatics: Unremarkable <Kareem Joy - Last Filed: 09/11/20 04:54> Physical Examination - Vital Signs Temperature: 97.2 F Blood Pressure: 180/70 Pulse: 56 Respirations: 18 Pulse Ox (%): 98 - Physical Exam General: Alert, In no apparent distress, Oriented x3 HEENT: Atraumatic, Normocephalic, PERRLA, Mucous membr. moist/pink, EOMI, Sclerae nonicteric Neck: Supple, 2+ carotid pulse no bruit, JVD not distended, No Thyromegaly, No LAD Respiratory: Clear to auscultation bilaterally, Normal air movement Cardiovascular: No edema, Normal pulses, Regular rate/rhythm, Normal S1 S2, No gallops, No rubs, No murmurs Capillary refill: <2 Seconds Gastrointestinal: Normal bowel sounds, Soft and benign, Non-distended, No ascites, No tenderness, No masses, No rebound, No guarding Musculoskeletal: No clubbing, No swelling, No contractures, No erythema, No tenderness, No warmth Integumentary: No rashes, No breakdown, No significant lesion, No tenderness/swelling, No erythema, No warmth, No cyanosis Neurological: Normal speech, Normal strength at 5/5 x4 extr, Normal tone, Sensation intact, Cranial nerves 3-12 intact - Studies Laboratory Data (last 24 hrs) 09/10/20 18:39: WBC 5.00, Hgb 10.7 L, Hct 33.0 L, Plt Count 257 09/10/20 18:39: Sodium 141, Potassium 4.2, BUN 94 H, Creatinine 5.78 H*, Glucose 135 H, Total Bilirubin 0.3, AST 15, ALT 11 L, Alkaline Phosphatase 64, Lipase 788 H <Kareem Joy - Last Filed: 09/11/20 04:54> - Studies Laboratory Data (last 24 hrs) 09/10/20 18:39: WBC 5.00, Hgb 10.7 L, Hct 33.0 L, Plt Count 257 09/10/20 18:39: Sodium 141, Potassium 4.2, BUN 94 H, Creatinine 5.78 H*, Glucose 135 H, Total Bilirubin 0.3, AST 15, ALT 11 L, Alkaline Phosphatase 64, Lipase 788 H <alexus pena - Last Filed: 09/11/20 14:28> Assessment and Plan - Problems (Diagnosis) (1) Diabetes Current Visit: Yes Status: Chronic Plan: sliding scale insulin, Accuchecks, continue to monitor Qualifiers: Diabetes mellitus type: type 2 Diabetes mellitus detention insulin use: without watermaster use Diabetes mellitus complication status: with kidney complications Diabetes mellitus complication detail: with chronic kidney disease Chronic kidney disease stage: on chronic dialysis Qualified Code(s): E11.22 - Type 2 diabetes mellitus with diabetic chronic kidney disease; N18.6 - End stage renal disease; Z99.2 - Dependence on renal dialysis (2) Fecal impaction Current Visit: Yes Status: Acute Plan: incidental finding of fecal impaction. mineral oil enema, polyethylene glycol. (3) Anemia in chronic kidney disease Current Visit: No Status: Acute Plan: currently stable. nephrology consulted. Qualifiers: Chronic kidney disease stage: on chronic dialysis Qualified Code(s): N18.6 - End stage renal disease; D63.1 - Anemia in chronic kidney disease; Z99.2 - Dependence on renal dialysis (4) ESRD (end stage renal disease) on dialysis Current Visit: No Status: Acute Plan: missed two days of dialysis. consulted nephrology. per patient and per daughter, patient still makes urine. 80mg Lasix IV given in the ER. patient will receive dialysis today. (5) Hypertension Current Visit: No Status: Acute Plan: BP elevated to 222/65. Given 10mg IV hydralazine in the ER. Obtained home medications from daughter of hydralazine 50mg BID and carvedilol 1 tab BID. However, daughter says medications were recently increased to hydralazine 100mg BID and carvedilol 1 tab TID, will confirm when meds are reconciled. Qualifiers: Hypertension type: essential hypertension Qualified Code(s): I10 - Essential (primary) hypertension Discharge Plan: Home Plan to discharge in: 24 Hours - Advance Directives Does patient have a Living Will: No Does patient have a Durable POA for Healthcare: No - Code Status/Comfort Care Code Status Assessed: Yes (full code) Critical Care: No Time Spent Managing Pts Care (In Minutes): 70 <Kareem Joy - Last Filed: 09/11/20 04:54> Physician Review: Patient Assessed, Agree with Above Assessment and Plan Physician Review Additional Text: Vomiting probably secondary to uremia. Plan: Nephrology consult for hemodialysis. Blood pressure control. <alexus pena - Last Filed: 09/11/20 14:28>
[2020-09-11 06:06] LABS: Albumin 3.1 g/dL (3.4-5.0); Bilirubin Total 0.3 mg/dL (0.2-1.0); Magnesium 2.9 mg/dL (1.8-2.4); Phosphorus 5.8 mg/dL (2.5-4.9)
[2020-09-11 06:09] LABS: Hematocrit 29.8 % (36.0-45.0)
[2020-09-11 06:10] LABS: Absolute Lymphocytes (CBC) 1.1 K/uL (0.7-4.9); Basophils % 1.5 % (0-1.3); Lymphocytes % 21.3 % (15.3-44.8); MPV 9.1 fL (7.6-11.3)
[2020-09-11] MEDS: INSULIN -REGULAR HUMAN 50 UNIT/0.5 ML ML SQ SCH ×4 (07:30→21:00)
[2020-09-11] MEDS: HYDRALAZINE HCL 25 MG TABLET PO SCH ×2 (08:23→22:47)
[2020-09-11] MEDS: MINERAL OIL ENEMA 135 ML BTL PR SCH (08:36)
[2020-09-11] MEDS ORDERED: carvediloL 3.125 MG TAB PO SCH (09:00)
[2020-09-11] MEDS ORDERED: HYDRALAZINE HCL 25 MG TABLET PO SCH (09:15)
[2020-09-11] MEDS ORDERED: carvediloL 3.125 MG TAB PO ONE (10:00)
[2020-09-11] MEDS ORDERED: POLYETHYL GLY 3350 17 GM/DOSE PO ONE (12:00)
--- NOTE | 2020-09-11 14:34 | P.PN ---
Subjective Date of Service: 09/11/20 Primary Care Provider: Dr. Delcid Chief Complaint: missed dialysis, vomiting Patient has no complain. She has not vomited since admission. Physical Examination - Vital Signs Temperature: 97.8 F Blood Pressure: 192/88 Pulse: 59 Respirations: 18 Pulse Ox (%): 98 - Physical Exam General: Alert, In no apparent distress HEENT: Mucous membr. moist/pink Neck: JVD not distended Respiratory: Clear to auscultation bilaterally, Normal air movement Cardiovascular: No edema, Regular rate/rhythm Gastrointestinal: Soft and benign, Non-distended, No tenderness Musculoskeletal: No swelling, No erythema Integumentary: No rashes Neurological: Other (No focal motor deficit) - Studies Laboratory Data (last 24 hrs) 09/10/20 18:39: WBC 5.00, Hgb 10.7 L, Hct 33.0 L, Plt Count 257 09/10/20 18:39: Sodium 141, Potassium 4.2, BUN 94 H, Creatinine 5.78 H*, Glucose 135 H, Total Bilirubin 0.3, AST 15, ALT 11 L, Alkaline Phosphatase 64, Lipase 788 H Assessment And Plan - Current Problems (Diagnosis) (1) Uncontrolled hypertension Current Visit: Yes Status: Acute (2) Fecal impaction Current Visit: Yes Status: Acute (3) Diabetes Current Visit: Yes Status: Chronic Qualifiers: Diabetes mellitus type: type 2 Diabetes mellitus skilled nursing insulin use: without terminal makeup operator use Diabetes mellitus complication status: with kidney complications Diabetes mellitus complication detail: with chronic kidney disease Chronic kidney disease stage: on chronic dialysis Qualified Code(s): E11.22 - Type 2 diabetes mellitus with diabetic chronic kidney disease; N18.6 - End stage renal disease; Z99.2 - Dependence on renal dialysis (4) ESRD (end stage renal disease) on dialysis Current Visit: No Status: Acute - Plan Nephrology consult for hemodialysis. Home blood pressure medications resumed Hydralazine p.r.n. for BP spikes. Laxatives and stool softeners for constipation. Physician Review: Patient Assessed, Agree with Above Assessment and Plan
--- NOTE | 2020-09-11 14:46 | P.CNS ---
Date of Consult: 09/11/20 Primary Care Provider: Dr. Delcid Chief Complaint: missed dialysis, vomiting History of Present Illness: Pt is a 80 y/o female with past medical hx of hypertension, DM presenting with nausea and vomiting for which she came to the hospital. Pt missed hemodialysis but denies any shortness of breath. No chest pain or dizziness Renal has been consulted for hemodialysis needs. Allergies codeine Allergy (Intermediate, Verified 04/27/20 00:35) Itching/Hives/Rash - Past Medical/Surgical History Diabetic: Yes -: HTN,IDDM,CVA -: kidney failure -: PNE -: hx of left lower leg wound-healed -: ESRD on HD -: HLD -: LEFT EYE CATARACT -: HYPOTHYROIDISM -: HD ACCESS -left upper chest -: BROKEN HIP -: anemia -: HD ACCESS PLACEMENT -: hip replacement Psychosocial/ Personal History: Patient lives with her daughter - Family History Mother Medical History: Heart disease - Social History Smoking Status: Unknown if ever smoked Alcohol use: No CD- Drugs: No Caffeine use: No Place of Residence: Home Review of Systems General: Unremarkable Eyes: Unremarkable ENT: Unremarkable Respiratory: Unremarkable Cardiovascular: Unremarkable Gastrointestinal: Nausea, Vomiting Genitourinary: Unremarkable Musculoskeletal: Unremarkable Integumentary: Unremarkable Neurological: Unremarkable Physical Examination Temp Pulse Resp BP Pulse Ox 97.8 F 59 18 192/88 H 98 09/11/20 14:34 09/11/20 14:34 09/11/20 14:34 09/11/20 14:34 09/11/20 14:34 General: Alert, In no apparent distress HEENT: Atraumatic, PERRLA, Mucous membr. moist/pink, EOMI, Sclerae nonicteric Neck: Supple, 2+ carotid pulse no bruit, No LAD, Without JVD or thyroid abnormality Respiratory: Clear to auscultation bilaterally, Normal air movement Cardiovascular: Regular rate/rhythm, Normal S1 S2 Capillary refill: <2 Seconds Gastrointestinal: Normal bowel sounds, No tenderness Musculoskeletal: No tenderness Integumentary: No rashes Neurological: Normal gait, Normal speech, Normal tone, Normal affect Lymphatics: No axilla or inguinal lymphadenopathy Laboratory Data (last 24 hrs) 09/10/20 18:39: WBC 5.00, Hgb 10.7 L, Hct 33.0 L, Plt Count 257 09/10/20 18:39: Sodium 141, Potassium 4.2, BUN 94 H, Creatinine 5.78 H*, Glucose 135 H, Total Bilirubin 0.3, AST 15, ALT 11 L, Alkaline Phosphatase 64, Lipase 788 H Conclusions/Impression: Problems ESRD on hemodialysis TTS Nause and vomiting Hypertension DM Plan Will dialyze for clearance 1l fluid restriction Strict i/o Antiemetics. Symptoms improved already Thank you for this interesting consult. Will continue to follow.
[2020-09-11] MEDS: NEPRO SHAKE 237 ML CAN PO SCH (21:00)
[2020-09-11] MEDS: carvediloL 12.5 MG TAB PO SCH (22:48)
[2020-09-12] MEDS: HEPARIN 5000 UNIT/ML 1 ML VIAL SQ SCH ×3 (01:14→16:11)
[2020-09-12 06:12] LABS: Absolute Lymphocytes (CBC) 0.8 K/uL (0.7-4.9); Basophils % 1.9 % (0-1.3); MPV 8.6 fL (7.6-11.3); RBC Red Blood Cell Count 3.41 M/uL (3.86-4.86)
[2020-09-12 07:10] LABS: Magnesium 2.3 mg/dL (1.8-2.4); Phosphorus 2.5 mg/dL (2.5-4.9); Potassium 4.1 mmol/L (3.5-5.1)
[2020-09-12] MEDS: INSULIN -REGULAR HUMAN 50 UNIT/0.5 ML ML SQ SCH ×3 (07:30→16:30)
[2020-09-12] MEDS ORDERED: ASPIRIN 81 MG CHEWABLE TABLET PO SCH (09:00)
[2020-09-12] MEDS: MINERAL OIL ENEMA 135 ML BTL PR SCH (09:00)
[2020-09-12 09:19] VITALS: O2SAT 96
[2020-09-12] MEDS: HYDRALAZINE HCL 25 MG TABLET PO SCH (09:31)
[2020-09-12] MEDS: carvediloL 12.5 MG TAB PO SCH (09:31)
[2020-09-12] MEDS: NEPRO SHAKE 237 ML CAN PO SCH (09:32)
[2020-09-12] MEDS ORDERED: HYDRALAZINE HCL 25 MG TABLET PO SCH (14:00)
--- NOTE | 2020-09-12 14:22 | P.DS ---
Admission Date: 09/10/20 Discharge Date: 09/12/20 Primary Care Provider: Dr. Delcid Disposition: DC HOME/HOME HEALTH CARE Discharge Condition: FAIR Reason for Admission: missed dialysis, vomiting - Problems (1) Uncontrolled hypertension Current Visit: Yes Status: Acute (2) Fecal impaction Current Visit: Yes Status: Acute (3) Diabetes Current Visit: Yes Status: Chronic Qualifiers: Diabetes mellitus type: type 2 Diabetes mellitus intermodal customer service insulin use: without intermodal customer service use Diabetes mellitus complication status: with kidney complications Diabetes mellitus complication detail: with chronic kidney disease Chronic kidney disease stage: on chronic dialysis Qualified Code(s): E11.22 - Type 2 diabetes mellitus with diabetic chronic kidney disease; N18.6 - End stage renal disease; Z99.2 - Dependence on renal dialysis (4) ESRD (end stage renal disease) on dialysis Current Visit: No Status: Acute Brief History of Present Illness: 80-year-old woman with a history of end-stage renal disease on hemodialysis, hypertension was brought to the emergency department for episodes of nausea and vomiting during dialysis. Per report, patient missed [address] abdomen and pelvis done in the emergency department demonstrated constipation, no obstruction. Her blood pressure was severely elevated. Patient was hospitalized for further management. Hospital Course: Patient hospitalized, nephrology consulted for dialysis. Patient underwent hemodialysis uneventfully. She was also given the number for the constipation. She had multiple bowel movements. She was stable during the hospital stay. Her blood pressure medications were resumed. Patient blood pressure readings fluctuated but mostly hypertensive. She has been asymptomatic during the hospital stay. She is deemed clinically stable for discharge. She will continue routine hemodialysis on discharge. Vital Signs/Physical Exam: Temp Pulse Resp BP Pulse Ox 97 F 62 18 180/80 H 98 09/12/20 12:00 09/12/20 12:00 09/12/20 12:00 09/12/20 13:45 09/12/20 12:00 General: Alert, In no apparent distress, Cachectic HEENT: Mucous membr. moist/pink Neck: JVD not distended Respiratory: Clear to auscultation bilaterally, Normal air movement Cardiovascular: No edema, Regular rate/rhythm Gastrointestinal: Soft and benign, Non-distended, No tenderness Musculoskeletal: No swelling, No contractures Integumentary: No rashes Neurological: Other (No focal motor deficit.) Laboratory Data at Discharge: WBC 4.00 K/uL (4.3-10.9) L D 09/12/20 05:43 Hgb 9.9 g/dL (12.0-15.0) L 09/12/20 05:43 Hct 31.0 % (36.0-45.0) L 09/12/20 05:43 Plt Count 184 K/uL (152-406) D 09/12/20 05:43 Sodium 142 mmol/L (136-145) 09/12/20 05:43 Potassium 4.1 mmol/L (3.5-5.1) 09/12/20 05:43 BUN 20 mg/dL (7-18) H D 09/12/20 05:43 Creatinine 2.29 mg/dL (0.55-1.3) H D 09/12/20 05:43 Glucose 94 mg/dL (74-106) 09/12/20 05:43 Phosphorus 2.5 mg/dL (2.5-4.9) D 09/12/20 05:43 Magnesium 2.3 mg/dL (1.8-2.4) D 09/12/20 05:43 Total Bilirubin 0.3 mg/dL (0.2-1.0) 09/11/20 05:17 AST 16 U/L (15-37) 09/11/20 05:17 ALT 9 U/L (12-78) L 09/11/20 05:17 Alkaline Phosphatase 56 U/L (45-117) 09/11/20 05:17 Lipase 788 U/L (73-393) H 09/10/20 18:39 Home Medications: Aspirin 120 mg PO DAILY 10/31/19 Atorvastatin Calcium [Lipitor*] 20 mg PO BEDTIME 10/31/19 Pantoprazole [Protonix Tab*] 40 mg PO DAILY 10/31/19 Pentoxifylline 400 mg PO BID 10/31/19 Hydralazine [Apresoline*] 100 mg PO TID 04/27/20 Latanoprost/Pf [Latanoprost 0.005% Eye Drop] 1 drop LEFT EYE BEDTIME 04/27/20 carvediloL [Carvedilol] 1 tab PO BID 08/06/20 Insulin -Regular Human [Novolin -R*] 5 unit SQ BID 09/11/20 Sertraline [Zoloft*] 50 mg PO DAILY 09/11/20 Heparin [Heparin 1,000 units/mL *] 3,000 unit IV EVERY HD vial 09/12/20 Heparin [Heparin 1,000 units/mL *] 6,000 unit IV EVERY HD PRN vial 09/12/20 Nepro Shake [Nepro*] 237 ml PO BID #60 can 09/12/20 New Medications: Nepro Shake [Nepro*] 237 ml PO BID #60 can Diet: ADA (dialysis diet) Activity: Fall precautions Followup: Racquel Marshall DO [Primary Care Provider] - 1-2 Weeks
[2020-09-12 18:04] VITALS: BP 176/72; TEMP 97.6
== END 2020-09-12 16:53 | disposition home health service (06) ==
LOC: ER 14:16 → ERHOLD 22:15 → 2ND 09-11 00:20
PROVIDERS: ADMIT Internal Medicine; ATTEND Internal Medicine
PROC: 5A1D70Z Performance of Urinary Filtration, Intermittent, Less than 6 Hours Per Day (ICD-10-PCS; principal; 2020-09-10)
DX: I12.0 Hypertensive chronic kidney disease with stage 5 chronic kidney disease or end stage renal disease (principal); E11.22 Type 2 diabetes mellitus with diabetic chronic kidney disease; N18.6 End stage renal disease; D63.1 Anemia in chronic kidney disease; Z99.2 Dependence on renal dialysis; Z91.15 Patient's noncompliance with renal dialysis; K56.41 Fecal impaction; E78.5 Hyperlipidemia, unspecified; E03.9 Hypothyroidism, unspecified; R19.09 Other intra-abdominal and pelvic swelling, mass and lump; H26.9 Unspecified cataract; F03.90 Unspecified dementia, unspecified severity, without behavioral disturbance, psychotic disturbance, mood disturbance, and anxiety; Z79.4 Long term (current) use of insulin; Z20.822 Contact with and (suspected) exposure to COVID-19; Z88.6 Allergy status to analgesic agent; Z88.8 Allergy status to other drugs, medicaments and biological substances; Z87.891 Personal history of nicotine dependence; Z86.73 Personal history of transient ischemic attack (TIA), and cerebral infarction without residual deficits; Z96.649 Presence of unspecified artificial hip joint; Z82.49 Family history of ischemic heart disease and other diseases of the circulatory system
CPT/HCPCS: 90970; 96365; 85025 ×3; 80048 ×2; 36415 ×2; 83735 ×2; 84100 ×2; 82947 ×8; 80076; 83690; 80053; 76377; 74176; 94760 ×4; 96375; 99285; 96366; U0003; J0360 ×3; J1644 ×6; J2405; G0257; G0378 ×3

== ENCOUNTER 2020-10-10 13:48 | Observation (INO) | payer OTHER ==
--- OUTSIDE RECORDS SUMMARY | 2020-10-10 13:52 | XMS REPORT | Continuity of Care Document ---
:1940 Author Organization [facility] t Address [address] [place] [address] Care Team Providers Name Role Phone Pcp Primary Care Physician Unavailable Alvino HENDRICKS Attending Clinician Unavailable Viktoria Forbes MD Attending Clinician Suzi HENDRICKS Attending Clinician Unavailable Ez HENDRICKS Attending Clinician Unavailable NIGEL Attending Clinician Unavailable LUKE HUERTAS Attending Clinician Unavailable CHIDI Attending Clinician Unavailable MARQUITA ABRAHAM Admitting Clinician Unavailable CHIDI Admitting Clinician Unavailable Payers Payer Name Policy Type Policy Effective Date Expiration Date Sour ce Number HUMANA [id number] 2019 [place] MEDICAREHUMANA HMO 00:00:00 Method ist GOLD PLUS [id number] Problems Condition Condition Condition Status Onset Resolution [...] 00 Cent er Closed Closed Disease Active [place] left hip left hip 3-17 Method i fracture fracture 00:00: st 00 Gastrointe Gastrointe Disease Active [place] stinal stinal 2-23 Methodi bleed bleed 00:00: st 00 Acute Acute Disease Active [place] pulmonary pulmonary 2-18 Meth nery edema edema 00:00: st 00 Hematoma Hematoma Disease Active [place] of groin of groin 03-07 Method i 00:00: st 00 PAD PAD Disease Active Overview: [place] (periphera (periphera 8-22 Formattin Methodi l artery l artery 00:00: g of this st disease) disease) 00 note might be different from the original. Added automatic ally from request for surgery [id number] st Assessmen t & Plan: Formattin g of this note might be different from the original. Improved symptoms. Continue medical optimizat ion. Continue cilostazo l. Follow-up in 6 months with ABIs and TBI's. 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 03-10 Me thodi emia emia 00:00: st 00 ESRD (end ESRD (end Disease Active St [facility] renal Medical disease) disease) Center on on dialysis dialysis Allergies, Adverse Reactions, Alerts Allergy Allergy Status Severity Reaction(s) Onset Inactive Treating Comm ents Source Name Type Date Date Clinician Codeine Propensi Active hallucina [place] ty to 02-25 tions Methodi adverse 00:00: st reaction 00 s to drug Tramadol Propensi Active Other [place] ty to 05 reaction( Methodi adverse 00:00: s): st reaction 00 Hallucina s to tions drug Tramadol Propensi Active Other (See [facility] to Comments) 06-24 [facility] - adverse 00:00: Medical reaction 00 Center s Codeine Propensi Active Other (See [facility] Comments) 12-02 [facility] - adverse 00:00: Medical reaction 00 Center s Family History Family Member Diagnosis Comments Start Date Stop Date Source Natural father Heart disease Richardson Amin Natural mother Stroke [facility] sydniodist Social History Social Habit Start Date Stop Date Quantity Comments Source History of Current smoker [facility] sydniodist tobacco use Tobacco use and 2019-09-10 2019-09-10 Never used Richardson Contreras ethodist exposure 00:00:00 00:00:00 Alcohol intake 2019-09-10 2019-09-10 Current [place] thodist 00:00:00 00:00:00 non-drinker of alcohol (finding) Tobacco Comment 2017-02-25 2017-02-25 socially Richardson Contreras ethodist 00:00:00 00:00:00 Sex [birth year] Richardson Contreras ethodist 00:00:00 00:00:00 Smoking Status Start Date Stop Date Source Former smoker 2019-09-10 00:00:00 2019-09-10 00:00:00 Richardson Amin Medications Ordered Filled Start Stop Current Ordering Indication Dosage Frequency Signature Comments Components Source Medication Medication Date Date Medication? Clinician (SIG) Name Name hydrALAZINE 2019-06- No Essential 25mg [id number] Take 1 Bai (APRESOLINE 06-24 11-05 hypertensio [id number] tablet (2 5 Methodi ) 25 MG 00:00: 23:59 n 3D mg total) st tablet 00 :00 by mouth 3 (three) times a day. aspirin Yes 81mg QD Take 81 mg [place] (ECOTRIN) 01-03 by mouth Method i 81 MG 11:23: daily. st enteric 33 coated tablet latanoprost Yes 1[drp] QD Administer Bai (XALATAN) 01-03 1 drop to Metho di 0.005 % 11:23: both eyes st ophthalmic 33 nightly. solution clotrimazol 2020- No Dermatitis Q.5D Apply [place] e-betametha 01-03 [facility]59 2 (two) st (Lotrisone) 00 :00 times a 1-0.05 % day. cream LORAZepam No Dementia .25mg Q6H Take 0.5 Bai (Ativan) 01-0316 with tablets Methodi 0.5 MG 00:00: 23:59 behavioral (0.[address] tablet 00 :00 disturbance total) by , mouth unspecified every 6 dementia (six) type ([facility]) hours as needed (combative ness) for up to 30 days. QUEtiapine 2020- No Dementia 25mg QD Take 1 Bai (SEROqueL) 12-13- with tablet (25 Me thodi 25 MG 00:00: 23:59 behavioral mg total) st tablet 00 :00 disturbance by mouth , nightly unspecified for 30 dementia days. type ([facility]) polyethylen 2019- No Constipatio 17g QD Take 17 g Bai e glycol 12-13 n, by mouth Method i (MIRALAX) 00:00: 23:[address] 17 gram 00 :00 constipatio 30 days. packet n type docusate 2019- No Constipatio 100mg Q.5D Take 1 [place] sodium 12-13 n, capsule Methodi (Colace) 00:00: 23:59 unspecified ([address] 100 MG 00 :00 constipatio total) by capsule n type mouth 2 (two) times a day for 30 days. levothyroxi Yes Hypothyroid 50ug QD Take 1 [place] ne 4-28 ism, tablet (50 Methodi (SYNTHROID) 00:00: unspecified mcg total) st 50 mcg 00 type by mouth tablet daily. pentoxifyll Yes PAD TAKE 1 [place] in[place] 4-28 (peripheral TABLET BY Met patel (TRENTal) 00:00: artery MOUTH st 400 mg CR 00 disease) TWICE A tablet ([facility]) DAY blood sugar 2019-0 Yes Type 2 Use one [place] diagnostic 4-20 diabetes test strip Methodi strips 00:00: mellitus two times st (glucose 00 with daily for blood) hyperglycem blood strip test ia, with sugar strips long-term current use of insulin ([facility]) pentoxifyll 2019-0 2020- No PAD TAKE 1 [place] ine 4-20 04-28 (peripheral TABLET BY Me oliver (TRENTal) 00:00: 00:[address] 400 mg CR 00 :00 disease) TWICE A tablet (HCC) DAY aspirin 81 2019-0 Yes 81mg QD Take [address] MG EC 4-15 by mouth [facility] - tablet 17:33: daily. Medical 00 Center atorvastati 2020-0 Yes 20mg QD Take [address] [facility] (LIPITOR) 4-15 by mouth [facility] - 20 MG 17:33: daily. Medical tablet 00 Center carvediloL 2020-0 Yes hypertensio 12.5mg Take 12.[address] [...] Medi daniel 17 gram 00 (three) Center days. hydrALAZINE 2020-0 Yes hypertensio 25mg Q.[id number] Take [address] (APRESOLINE 4-15 n [id number] by mouth 3 [facility] - ) 25 [...] tablet (four) hours as needed for Pain. amLODIPine 2019-0 Yes 5mg QD Take [address] (NORVASC) 5 4-15 by mouth Luke s - MG tablet 17:33: daily . Medic al 00 Center epoetin 2019- 2020- No 3000U Q.[id number] Inject 1 [place] misa-epbx 3- [id number] mL (3,000 Methodi (RETACRIT) 00:00: 23:[address] 3,000 00 :00 total) unit/mL under the solution skin 3 injection (three) times a week for 30 days. amLODIPine 2019- 2020- No 5mg QD Take 1 [place] (NORVASC) 5 09-12-25 tablet (5 Me thodi mg tablet 00:00: 23:59 mg total) st 00 :00 by mouth daily for 30 days. acetaminoph 2019-2019- No 650mg Q4H Take 2 [place] en 3-25 04-24 tablets Methodi (TYLENOL) 00:00: 23:59 ([address] 325 MG 00 :00 total) by tablet mouth every 4 (four) hours as needed for mild pain, moderate pain or fever for up to 30 days. heparin 2019- 2020- No 5000U Q.5D Inject 1 [place] sodium,porc 09-11 04-24 mL (5,000 Me thodi ine 00:00: 23:[address] (HEParin, 00 :00 total) porcine,) under the 5,000 skin every unit/mL 12 injection (twelve) hours for 30 days. insulin 2019- 2020- No 0U Q.[id number] Inject 0-5 [place] lispro 3-25 -24 [id number] Units Metho di (HumaLOG) 00:00: 23:[address] 100 unit/mL 00 :00 skin 3 injection (three) times a day with meals for 30 days. lancets 2019-0 Yes Type 2 Use one [place] misc 3-11 diabetes lancet two Metho di 00:00: mellitus times a st 00 with day for hyperglycem glucose ia, with long-term current use of insulin ([facility]) blood-gluco Yes Type 2 Use to juancarlos se meter 08-26 diabetes check Method i misc 00:00: mellitus blood st 00 with glucose hyperglycem twice ia, with daily long-term current use of insulin (HCC) blood-gluco 2020- Type 2 Use as H seferino se meter 08-26 diabetes instructed Methodi kit 00:00: 23:[address] 00 :00 with hyperglycem ia, with long-term current use of insulin (HCC) levothyroxi 2019- No Hypothyroid TAKE 1 [facility] 07-01 ism, TABLET BY Methodi (SYNTHROID) 00:00: 00:[address] 50 mcg 00 :00 type EVERY DAY tablet miscellaneo 2017-06 Yes Essential Use to [facility] 08-01 hypertensio check M ethodi supply 00:00: n blood st (BLOOD 00 pressure PRESSURE twice CUFF) misc daily Immunizations Ordered Immunization Filled Immunization Date Status Commen ts Source Name Name Pneumococcal 2018-05-31 Completed [place] Conjugate 13-Valent 00:00:00 Metho dist FLUZONE HIGH-DOSE PF 2018-03-01 Completed [place] 00:00:00 Buddhist FLUZONE HIGH-DOSE PF 2017-03-10 Completed [place] 00:00:00 Buddhist Procedures This patient has no known procedures. Plan of Care Planned Activity Planned Date Details Comments Source Future Scheduled 2021-01-18 INFLUENZA VACCINE [place] [facility] Test 00:00:00 [code = INFLUENZA VACCINE] Future Scheduled 2020-03-[address] [facility] [address] [facility] - Test 00:00:00 [facility] (procedure) [code = 56374736] Future Scheduled 2020-02-19 INFLUENZA VACCINE (#1) [facility] Test 00:[facility]:00 [code = INFLUENZA Medical Ce nter VACCINE (#1)] Future Scheduled 2020-01-19 DIABETES: RETINAL EYE [place] [facility] Test 00:00:00 EXAM [code = DIABETES: RETINAL EYE EXAM] Future Scheduled 2019-09-14 DIABETIC FOOT EXAM [place] [facility] Test 00:00:00 [code = DIABETIC FOOT EXAM] Future Scheduled 2019-09-14 URINE MICROALBUMIN [place] [facility] Test 00:00:00 [code = URINE MICROALBUMIN] Future Scheduled 2019-06-20 Medicare IPPE (WELCOME [facility] - Test 00:00:00 TO MEDICARE) [code = Medical Center Medicare IPPE (WELCOME TO MEDICARE)] Future Scheduled 2018-07-26 65+ PNEUMOCOCCAL [facility]ai [facility] Test 00:00:00 VACCINE (2 of 4 - PPSV23) [code = 65+ PNEUMOCOCCAL VACCINE (2 of 4 - PPSV23)] Future Scheduled 2007 PNEUMOCOCCAL 65+ [facility] - Test 00:00:00 (2 of 2 - PPSV23) Medical Ce nter [code = PNEUMOCOCCAL 65+ YRS (2 of 2 - PPSV23)] Future Scheduled 1992-01-12 SHINGLES VACCINES (#1) [place] [facility] Test 00:00:00 [code = SHINGLES VACCINES (#1)] Future Scheduled 1958 COVID-19 VACCINE (1) [place] [facility] Test 00:00:00 [code = COVID-19 VACCINE (1)] Future Scheduled 1952-01-12 Urine screening for [facility] - Test 00:00:00 protein (procedure) Medical Center [code = 194211182] Future Scheduled 1952-01-12 DIABETIC EYE EXAM [facility] - Test 00:00:00 [code = DIABETIC EYE Medical Center EXAM] Future Scheduled 1952-01-[address] [facility] - Test 00:00:00 examination Medical Center (regime/therapy) [code = 966428807] Encounters Start End Encounter Admission Attending Care Care Encounter Source Date/Time Date/Time Type Type Clinicians Facility Department ID 2020-01-04 2020-01-04 Outpatient FORBES, [facility] [id number] [place] 00:00:00 00:00:00 TRACI [address] 2019-12-14 2019-12-14 Outpatient FORBES, [facility] [id number] [place] 00:00:00 00:00:00 TRACI [address] 2019-11-14 2019-11-14 Outpatient FORBES, [facility] [id number] [place] 00:00:00 00:00:00 TRACI [address] 2019-10-24 2019-10-24 Outpatient FORBES, [facility] [id number] [place] 00:00:00 00:00:00 TRACI [address] 2019-10-02 2019-10-02 Outpatient ONIEL MANNING [facility] [id number] [place] 00:00:00 00:00:[address] 2019-09-04 2019-09-12 Inpatient CHIDI, [facility] [id number] [place] 00:00:00 00:00:00 DOROTA [address] 2019-08-27 2019-08-27 Outpatient FORBES, [facility] [id number] [place] 00:00:00 00:00:00 TRACI [address] 2019-08-27 2019-08-27 Outpatient FORBES, [facility] [id number] [place] 00:00:00 00:00:00 TRACI [address] 2019-08-07 2019-08-21 Inpatient CHIDI, [facility] [id number] [place] 00:00:00 00:00:00 DOROTA [address] Results Test Description Test Time Test Comments Results Result Comments Source POCT-GLUCOSE METER 2019-10-03 16:59:00 Test Item Value Reference Range Interpretation Comme nts POC-GLUCOSE METER ([employer]) 81 mg/dL 70-110 : TESTED AT [facility] [address] [facility] (test code = 1538) [place], [address]: Banquet Captain/Techni jamey ID = [id number] for QUEEN MURILLO POCT-GLUCOSE [id number] 11:50:00 Test Item Value Reference Range Interpretation Comments POC-GLUCOSE METER 123 mg/dL 70-110 H : TESTED A T [facility] ([place]) (test code = [facility], 153) [address]: Banquet Captain/Techni jamey ID = [id number] for DAINA CARLYQUEEN MORRISON POCT-GLUCOSE [id number] 11:07:00 Test Item Value Reference Range Interpretation Comments POC-GLUCOSE METER 127 mg/dL 70-110 H : TESTED A T [facility] [address] ([place]) (test code = [facility], 153) [address]: Banquet Captain/Techni jamey ID = [id number] for Argenis renteria Thomas POCT-GLUCOSE [id number] 08:22:00 Test Item Value Reference Range Interpretation Comments POC-GLUCOSE METER 78 mg/dL 70-110 : TESTED A T [facility] ([employer]) (test code = TATIANA Figueroa [place], 1538) [address]: Banquet Captain/Techni jamey ID = [id number] for Thomas Light POCT-GLUCOSE [id number] 07:54:00 Test Item Value Reference Range Interpretation Comments POC-GLUCOSE METER 69 mg/dL 70-110 L : TESTED A T [facility] (BEAKER) (test code = JUAN MANUELWI [place], 1538) [address]: Banquet Captain/Techni jamey ID = [id number] for QUEEN KNOX BASIC METABOLIC [id number] 07:05:00 Test Item Value Reference Range Interpretation [...] 697) EGFR (BEAKER) (test 12 mL/min/1.73 ESTIMA EDWARDO GFR IS code = 1092) sq m NOT ACCURATE CREATININE CLEARANCE IN PREDICTING GLOMERULAR FILTRATION RATE . ESTIMATED GFR I S NOT APPLICABLE FOR DIALYSIS PATIEN TS. Banquet Captain ID - PIAYA LCBC W/PLT COUNT & AUTO [id number] 06:42:00 Test Item Value Reference Range Interpretation [...] PERCENT (BEAKER) (test code = 2801) POCT-GLUCOSE [id number] 21:29:00 Test Item Value Reference Range Interpretation Comments POC-GLUCOSE METER 95 mg/dL 70-110 : TESTED A T [facility] [address] (BEAKER) (test code = [place] B[place], 1538) [address]: Banquet Captain/Techni jamey ID = [id number] for MERLE MILLER BASIC METABOLIC [id number] 17:44:00 Test Item Value Reference Range Interpretation [...] 697) EGFR (BEAKER) (test 14 mL/min/1.73 ESTIMA EDWARDO GFR IS code = 1092) sq m NOT ACCURATE CREATININE CLEARANCE IN PREDICTING GLOMERULAR FILTRATION RATE . ESTIMATED GFR I S NOT APPLICABLE FOR DIALYSIS PATIEN TS. Banquet Captain ID - BSPOCT-GLUCOSE [id number] 17:42:00 Test Item Value Reference Range Interpretation Comments POC-GLUCOSE METER 96 mg/dL 70-110 : [facility] ([facility]ER[facility] (test code = [place], 1538) [address]: Banquet Captain/Techni jamey ID = [id number] for DERIK PEDRO CBC W/PLT COUNT & AUTO [id number] 17:37:00 Test Item Value Reference Range Interpretation [...] PERCENT (BEAKER) (test code = 2801) POCT-GLUCOSE [id number] 13:09:00 Test Item Value Reference Range Interpretation Comments POC-GLUCOSE METER 72 mg/dL 70-110 : TESTED A T [facility] [address] (BEAKER) (test code = [facility], 1538) [address]: Banquet Captain/Techni jamey ID = [id number] for GORGE SUH POCT-GLUCOSE [id number] 08:42:00 Test Item Value Reference Range Interpretation Comments POC-GLUCOSE METER 87 mg/dL 70-110 : TESTED A T [facility] [address] (BEAKER) (test code = [facility], 1538) 7[address]: Banquet Captain/Techni jamey ID = [id number] for GORGE SUH POCT-GLUCOSE [id number] 21:42:00 Test Item Value Reference Range Interpretation Comments POC-GLUCOSE METER 94 mg/dL 70-110 : TESTED A T [facility] [address] (BEAKER) (test code = [facility], [facility]) 290[address]: Banquet Captain/Techni jamey ID = [id number] for MERLE MILLER POCT-GLUCOSE [id number] 21:33:00 Test Item Value Reference Range Interpretation Comments POC-GLUCOSE METER 84 mg/dL 70-110 : TESTED A T [facility] [address] (BEAKER) (test code = [facility], 1538) 529[address]: Banquet Captain/Techni jamey ID = [id number] for ALEKS S, ABI POCT-GLUCOSE [id number] 12:49:00 Test Item Value Reference Range Interpretation Comments POC-GLUCOSE METER 139 mg/dL 70-110 H : TESTED A T [facility] [address] (BEAKER) (test code = [facility], [facility]8) [address]: Banquet Captain/Techni jamey ID = [id number] for REKHA ASHLEY, ABI POCT-GLUCOSE [id number] 10:22:00 Test Item Value Reference Range Interpretation Comments POC-GLUCOSE METER 96 mg/dL 70-110 : TESTED A T [facility] (BEAKER) (test code = [facility], [facility]) [address]: Banquet Captain/Techni jamey ID = [id number] for Dayna Meadows POCT-GLUCOSE [id number] 08:42:00 Test Item Value Reference Range Interpretation Comments POC-GLUCOSE METER 94 mg/dL 70-110 : TESTED A T [facility] (BEAKER) (test code = [facility], 1538) 88[address]: Banquet Captain/Techni jamey ID = [id number] for ALEKS S, ABI BLOOD [id number] 05:00:00 Test Item Value Reference Range Interpretation Comments CULTURE (BEAKER) (test No growth in 5 days code = 1095) POCT-GLUCOSE [id number] 21:02:00 Test Item Value Reference Range Interpretation Comments POC-GLUCOSE METER 117 mg/dL 70-110 H : TESTED A T [facility] (BEAKER) (test code = [facility], 1538) 227[address]: Banquet Captain/Techni jamey ID = [id number] for BLAIRE GARRETT POCT-GLUCOSE [id number] 16:26:00 Test Item Value Reference Range Interpretation Comments POC-GLUCOSE METER 121 mg/dL 70-110 H : TESTED A T [facility] (BEAKER) (test code = [facility], 1538) 8[address]: Banquet Captain/Techni jamey ID = [id number] for DERIK ALEXANDRA POCT-GLUCOSE [id number] 12:02:00 Test Item Value Reference Range Interpretation Comments POC-GLUCOSE METER 183 mg/dL 70-110 H : TESTED A T [facility] (BEAKER) (test code = [facility], 1538) [address]: Banquet Captain/Techni jamey ID = [id number] for DERIK ALEXANDRA POCT-GLUCOSE [id number] 07:57:00 Test Item Value Reference Range Interpretation Comments POC-GLUCOSE METER 113 mg/dL 70-110 H : TESTED A T [facility] (BEAKER) (test code = [facility], 1538) [address]: Banquet Captain/Techni jamey ID = [id number] for DERIK ALEXANDRA BASIC METABOLIC [id number] 05:44:00 Test Item Value Reference Range Interpretation [...] 697) EGFR (BEAKER) (test 13 mL/min/1.73 ESTIMA EDWARDO GFR IS code = 1092) sq m NOT ACCURATE CREATININE CLEARANCE IN PREDICTING GLOMERULAR FILTRATION RATE . ESTIMATED GFR I S NOT APPLICABLE FOR DIALYSIS PATIEN TS. Banquet Captain ID - PIAYA LCBC W/PLT COUNT & AUTO [id number] 05:08:00 Test Item Value Reference Range Interpretation [...] PERCENT (BEAKER) (test code = 2801) POCT-GLUCOSE [id number] 20:17:00 Test Item Value Reference Range Interpretation Comments POC-GLUCOSE METER 164 mg/dL 70-110 H : TESTED A T [facility] (BEAKER) (test code = [facility], 153) 623[address]: Banquet Captain/Techni jamey ID = [id number] for COURT RENDONHIA HEMOGLOBIN AND [id number] 18:31:00 Test Item Value Reference Range Interpretation Comments HEMOGLOBIN (BEAKER) (test code = 8.5 GM/DL 11.2-15.7 L 410) HEMATOCRIT (BEAKER) (test code = 26.9 % 34.1-44.9 L 411) Banquet Captain ID - [id number]-GLUCOSE [id number] 16:55:00 Test Item Value Reference Range Interpretation Comments POC-GLUCOSE METER 175 mg/dL 70-110 H : TESTED A T [facility] (BEAKER) (test code = [facility], 153) 306[address]: Banquet Captain/Techni jamey ID = [id number] for REKHA ASHLEY, ABI POCT-GLUCOSE [id number] 12:00:00 Test Item Value Reference Range Interpretation Comments POC-GLUCOSE METER 188 mg/dL 70-110 H : TESTED A T [facility] (BEAKER) (test code = [facility], 153) 385[address]: Banquet Captain/Techni jamey ID = [id number] for REKHA ASHLEY, ABI POCT-GLUCOSE [id number] 08:10:00 Test Item Value Reference Range Interpretation Comments POC-GLUCOSE METER 98 mg/dL 70-110 : TESTED A T [facility] (BEAKER) (test code = [facility], 153) 915[address]: Banquet Captain/Techni jamey ID = [id number] for ALEKS S, ABI POCT-GLUCOSE [id number] 20:30:00 Test Item Value Reference Range Interpretation Comments POC-GLUCOSE METER 136 mg/dL 70-110 H : TESTED A T [facility] (BEAKER) (test code = [facility], 1538) 48822: Banquet Captain/Techni jamey ID = [id number] for WI COURT GARDNERHIA POCT-GLUCOSE [id number] 17:08:00 Test Item Value Reference Range Interpretation Comments POC-GLUCOSE METER 157 mg/dL 70-110 H : TESTED A T [facility] (BEAKER) (test code = [facility], 1538) 51809: Banquet Captain/Techni jamey ID = [id number] for BU RKS, ANIL POCT-GLUCOSE [id number] 11:35:00 Test Item Value Reference Range Interpretation Comments POC-GLUCOSE METER 97 mg/dL 70-110 : TESTED A T [facility] (BEAKER) (test code = [facility], 1538) 61823: Banquet Captain/Techni jamey ID = [id number] for HAROLDO S, ANIL HEPATIC FUNCTION [id number] 05:17:00 Test Item Value Reference Range Interpretation [...] code = < U/L 6-55 L 347) Banquet Captain ID - MARCELO WBASIC METABOLIC [id number] 05:13:00 Test Item Value Reference Range Interpretation Comments SODIUM (BEAKER) 137 meq/L 136-145 (test code = 381) POTASSIUM (BEAKER) 3.3 meq/L 3.5-5.1 L (test code = 379) CHLORIDE (BEAKER) 105 meq/L 98-107 (test code = 382) CO2 (BEAKER) (test 22 meq/L - code = 355) BLOOD UREA NITROGEN 22 mg/dL 7-21 H (BEAKER) (test code = 354) CREATININE (BEAKER) 3.48 mg/dL 0.57-1.25 H (test code = 358) GLUCOSE RANDOM 67 mg/dL 70-105 L (BEAKER) (test code = 652) CALCIUM (BEAKER) 7.2 mg/dL 8.4-10.2 L (test code = 697) EGFR (BEAKER) (test 13 mL/min/1.73 ESTIMA EDWARDO GFR IS code = 1092) sq m NOT ACCURATE CREATININE CLEARANCE IN PREDICTING GLOMERULAR FILTRATION RATE . ESTIMATED GFR I S NOT APPLICABLE FOR DIALYSIS PATIEN TS. Banquet Captain ID - MARCELO WPROTHROMBIN [id number] 04:50:00 Test Item Value Reference Range Interpretation [...] mechanical heart valves.CBC W/PLT COUNT & AUTO [id number] 04:32:00 Test Item Value Reference Range Interpretation [...] PERCENT (BEAKER) (test code = 2801) POCT-GLUCOSE [id number] 21:55:00 Test Item Value Reference Range Interpretation Comments POC-GLUCOSE METER 76 mg/dL 70-110 : TESTED A T [facility] (BEAKER) (test code = [facility], 1538) 11875: Banquet Captain/Techni jamey ID = [id number] for SIMON GERONIMO ANA POCT-GLUCOSE [id number] 17:42:00 Test Item Value Reference Range Interpretation Comments POC-GLUCOSE METER 91 mg/dL 70-110 : TESTED A T [facility] (BEAKER) (test code = [facility], 1538) 32030: Banquet Captain/Techni jamey ID = [id number] for DERIK PEDRO POCT-GLUCOSE [id number] 12:44:00 Test Item Value Reference Range Interpretation Comments POC-GLUCOSE METER 81 mg/dL 70-110 : TESTED A T [facility] 6720 (BEAKER) (test code = [facility], 1538) 08366: Banquet Captain/Techni jamey ID = [id number] for DERIK PEDRO POCT-GLUCOSE [id number] 08:13:00 Test Item Value Reference Range Interpretation Comments POC-GLUCOSE METER 81 mg/dL 70-110 : TESTED A T [facility] (BEAKER) (test code = [facility], 1538) 17555: Banquet Captain/Techni jamey ID = [id number] for DERIK PEDRO BASIC METABOLIC [id number] 05:48:00 Test Item Value Reference Range Interpretation [...] 697) EGFR (BEAKER) (test 18 mL/min/1.73 ESTIMA EDWARDO GFR IS code = 1092) sq m NOT ACCURATE CREATININE CLEARANCE IN PREDICTING GLOMERULAR FILTRATION RATE . ESTIMATED GFR I S NOT APPLICABLE FOR DIALYSIS PATIEN TS. Banquet Captain ID - PIAYA LHEPATIC FUNCTION [id number] 05:48:00 Test Item Value Reference Range Interpretation [...] code = < U/L 6-55 L 347) Banquet Captain ID - JB [id number] 05:47:00 Test Item Value Reference Range Interpretation Comments PHOSPHORUS (BEAKER) (test code = 2.6 mg/dL 2.3-4.7 604) Banquet Captain ID Cristina MUHAMMAD LPROTHROMBIN [id number] 05:20:00 Test Item Value Reference Range Interpretation [...] mechanical heart valves.CBC W/PLT COUNT & AUTO [id number] 05:11:00 Test Item Value Reference Range Interpretation [...] PERCENT (BEAKER) (test code = 2801) POCT-GLUCOSE [id number] 21:09:00 Test Item Value Reference Range Interpretation Comments POC-GLUCOSE METER 125 mg/dL 70-110 H : TESTED A T [facility] 6720 (BEAKER) (test code = [place], 1538) [id number]: Banquet Captain/Techni jamey ID = [id number] for NEGAR KHALIL POCT-GLUCOSE [id number] 17:10:00 Test Item Value Reference Range Interpretation Comments POC-GLUCOSE METER 93 mg/dL 70-110 : TESTED A T [facility] 6720 (BEAKER) (test code = [facility] [place] [facility], 1538) [address]: Banquet Captain/Techni jamey ID = [id number] for DERIK PEDRO HEMOGLOBIN [id number] 12:38:00 Test Item Value Reference Range Interpretation Comments HEMOGLOBIN A1C (BEAKER) (test code = 5.6 % 4.3-6.1 368) POCT-GLUCOSE [id number] 11:50:00 Test Item Value Reference Range Interpretation Comments POC-GLUCOSE METER 97 mg/dL 70-110 : TESTED A T [facility] 6720 (BEAKER) (test code = TATIANA Figueroa [facility], 1538) [address]: Banquet Captain/Techni jamey ID = [id number] for [place] HEPATITIS B SURFACE [id number] 10:03:00 Test Item Value Reference Range Interpretation Comments HEPATITIS B SURFACE ANTIGEN (2) Nonreactive Nonreactive (BEAKER) (test code = 2585) Banquet Captain ID - HANNAH CCBC W/PLT COUNT & AUTO [id number] 09:36:00 Test Item Value Reference Range Interpretation [...] 0-1 PERCENT (BEAKER) (test code = 2801) [id number] 09:33:00 Test Item Value Reference Range Interpretation Comments MAGNESIUM (BEAKER) (test code = 2.0 mg/dL 1.6-2.6 627) Banquet Captain ID - HANNAH CPOCT-GLUCOSE [id number] 07:55:00 Test Item Value Reference Range Interpretation Comments POC-GLUCOSE METER 65 mg/dL 70-110 L : TESTED A T [facility] 6720 (BEAKER) (test code = [place], 1538) [address]: Banquet Captain/Techni jamey ID = [id number] for DERIK PEDRO [id number] 05:36:00 Test Item Value Reference Range Interpretation Comments FERRITIN (BEAKER) (test code = 1973.82 ng/mL 5.00-275.00 H 361) Banquet Captain ID - MINH MVITAMIN B12 AND [id number] 05:32:00 Test Item Value Reference Range Interpretation Comments VITAMIN B12 (BEAKER) (test code = 1334 pg/mL 213-816 H 774) FOLATE (BEAKER) (test code = 362) 6.40 ng/mL >=7.00 L Banquet Captain ID - MINH MRAD, HIP, 2 VIEWS, [id number] 05:18:00Reason for exam:->fractureFINAL REPORT CLINICAL HISTORY: "Fracture" COMPARISON: None. FINDINGS: 2 views of the left hip are submitted. There is no acute fracture or malalignment. There are fixation screws in the femoral neck which appear properly positioned. Surgical joselin overlie the left lateral hip. Signed: Daniel Landers MDReport Verified Date/Time: 09/26/2019 05:18:36 Electronically signedby: DANIEL LANDERS M.D. on 09/26/2019 05:18 AMIRON, TIBC, % SAT. (WITHOUT FERRITIN)2019-09-26 05:09:00 Test Item Value Reference Range Interpretation Comments IRON (BEAKER) (test code = 547) 16.0 ug/dL 40.0-160.0 L TOTAL IRON BINDING CAPACITY 119 ug/dL 250-450 L (BEAKER) (test code = 769) IRON % SATURATION (2) (BEAKER) 13 % 20-55 L (test code = 2590) Banquet Captain ID - MINH MBASIC METABOLIC [id number] 02:38:00 Test Item Value Reference Range Interpretation [...] S NOT APPLICABLE FOR DIALYSIS PATIEN TS. Banquet Captain ID - MINH MPROTHROMBIN [id number] 02:36:00 Test Item Value Reference Range Interpretation [...] for patients wiht mechanical heart valves.HEPATIC FUNCTION [id number] 02:32:00 Test Item Value Reference Range Interpretation [...] (test code = 6 U/L 6-55 347) Banquet Captain ID - MINH MCBC W/PLT COUNT & AUTO [id number] 02:20:00 Test Item Value Reference Range Interpretation [...] (BEAKER) (test code = 2801) COMPREHENSIVE METABOLIC [id number] 23:10:00 Test Item Value Reference Range Interpretation [...] S NOT APPLICABLE FOR DIALYSIS PATIEN TS. Banquet Captain ID - BSPROTHROMBIN [id number] 23:07:00 Test Item Value Reference Range Interpretation [...] mechanical heart valves.CBC W/PLT COUNT & AUTO [id number] 22:49:00 Test Item Value Reference Range Interpretation [...] PERCENT (BEAKER) (test code = 2801) POCT-GLUCOSE [id number] 20:35:00 Test Item Value Reference Range Interpretation Comments POC-GLUCOSE METER 102 mg/dL 70-110 : TESTED A T [facility] 6720 (MIGDALIA) (test code = [place], 1538) [id number]: Banquet Captain/Techni jamey ID = [id number] for [facility]
--- NOTE | 2020-10-10 14:20 | RAD REPORT ---
EXAM DESCRIPTION: RAD - Chest Single View - 10/10/2020 2:13 pm CLINICAL HISTORY: pulled catheter out Chest pain. COMPARISON: Chest Single View dated 08/06/2020; Chest Single View dated 08/05/2020; Chest Single View dated 05/06/2020; Chest Single View dated 04/26/2020 FINDINGS: Portable technique limits examination quality. The lungs are grossly clear. The heart is normal in size. No displaced fractures. IMPRESSION: No acute intrathoracic process suspected.
[2020-10-10 14:22] LABS: Absolute Lymphocytes (CBC) 0.7 K/uL (0.7-4.9); Basophils % 1.3 % (0-1.3); Hematocrit 29.2 % (36.0-45.0); Lymphocytes % 16.7 % (15.3-44.8); MPV 10.8 fL (7.6-11.3); RBC Red Blood Cell Count 3.21 M/uL (3.86-4.86)
[2020-10-10 15:02] LABS: Blood Morphology Comment NOT SEEN (NOT SEEN); Platelet Estimate ADEQ
[2020-10-10 15:43] LABS: Protime INR 1.01
--- NOTE | 2020-10-10 15:55 | ER ---
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 No ll1 active bleeding. Coronavirus screen: Client denies travel out of the [place] in the last 14 days. At this time, the client does not indicate any symptoms associated with coronavirus-19. Ebola Screen: Patient denies travel to an Ebola-affected area in the 21 days before illness onset. Initial Sepsis Screen: Does the patient meet any 2 criteria? No. Patient's initial sepsis screen is negative. Does the patient have a suspected source of infection? No. Patient's initial sepsis screen is negative. Risk Assessment: Do you want to hurt yourself or someone else? Patient reports no desire to harm self or others. Onset of symptoms was October 10, 2020. 13:54 Method Of Arrival: EMS: [facility] ll1 13:54 Acuity: JOSE 3 ll1 Triage Assessment: 13:55 General: Appears in no apparent distress. Behavior is calm, cooperative, appropriate ll1 for age. Pain: Denies pain. EENT: No deficits noted. Neuro: No deficits noted. Cardiovascular: Heart tones S1 S2 Capillary refill < 3 seconds Clubbing of nail beds is absent JVD is absent Patient's skin is warm and dry. Rhythm is regular Parent/caregiver reports patient has had since pulled out dialysis cath to L chest wall. Respiratory: No deficits noted. Derm: open wound L chest from where indwelling dialysis catheter was present. Historical: - Allergies: 13:53 Codeine; ll1 13:53 Lisinopril; ll1 13:53 Tramadol HCl; ll1 - PMHx: 13:53 chronic kidney disease; Dialysis; Hypertension; Hyperlipidemia; Diabetes - IDDM; CVA; ll1 Dementia; Hypothyroidism; TIA; - PSHx: 13:53 Hip surgery; ll1 - Immunization history:: Pneumococcal vaccine is not up to date. - Social history:: Smoking status: Patient denies any tobacco usage or history of. Screenin:21 Abuse screen: Denies threats or abuse. Nutritional screening: No deficits noted. ll1 Tuberculosis screening: No symptoms or risk factors identified. Fall Risk IV access (20 points). Ambulatory Aid- Crutches/Cane/Walker (15 pts). Gait- Weak (10 pts.). Total Calvillo Fall Scale indicates High Risk Score (45 or more points). Fall prevention measures have been instituted. Side Rails Up X 2 Placed Close to Nursing Station Frequent Obs/Assessments Occuring Family Present and informed to notify staff if the need to leave the bedside As available patient and family educated on Fall Prevention Program and Strategies. Assessment: 14:55 Reassessment: No changes from previously documented assessment. Patient and/or family ll1 updated on plan of care and expected duration. Pain level reassessed. 15:55 Reassessment: No changes from previously documented assessment. Patient and/or family ll1 updated on plan of care and expected duration. Pain level reassessed. Patient is alert, oriented x 3, equal unlabored respirations, skin warm/dry/pink. 16:55 Reassessment: No changes from previously documented assessment. Patient and/or family ll1 updated on plan of care and expected duration. Pain level reassessed. 17:55 Reassessment: No changes from previously documented assessment. Patient and/or family ll1 updated on plan of care and expected duration. Pain level reassessed. 19:10 Reassessment: Pt is resting calmly in bed with eyes closed, respirations are even and jb4 unlabored with no s/s of pain or distress noted. Vital Signs: 13:54 Temp 97.2; Pain 0/10; ll1 14:07 BP 211 / 61; Pulse 58; Resp 17; Pulse Ox 100% on R/A; ll1 16:20 BP 215 / 54; Pulse 58; Resp 17; Pulse Ox 100% on R/A; ll1 18:44 BP 182 / 47; Pulse 61; Resp 16; Pulse Ox 100% on R/A; ll1 19:15 BP 175 / 48; Pulse 64; Resp 18; Pulse Ox 100% on R/A; jb4 20:05 BP 158 / 38; Pulse 61; Resp 18; Pulse Ox 98% on R/A; mg2 ED Course: 13:51 Patient arrived in ED. ll1 13:51 Doc Sullivan PA is PHCP. [facility] 13:51 Rahat Alexander MD is Attending Physician. [facility] 13:53 Patient has correct armband on for positive identification. Placed in gown. Bed in low sv position. Call light in reach. Side rails up X2. Pulse ox on. NIBP on. Door closed. Head of bed elevated. 13:53 Arm band placed on Patient placed in an exam room, on a stretcher. 1 13:54 Triage completed. 1 13:55 Benny Langston, RN is Primary Nurse. 1 14:11 XRAY Chest (1 view) In Process Unspecified. EDMS 14:55 Inserted saline lock: 22 gauge in left antecubital area, using aseptic technique. Blood ss collected. Patient maintains SpO2 saturation greater than 95% on room air. 15:53 Maycol Simon MD is Hospitalizing Provider. [facility] 17:47 COVID-19 : Document "Date of Symptom Onset" if Symptomatic. Sent. [facility] 19:20 Primary Nurse role handed off by Benny Langston RN [facility] 19:20 Tucker Palmer, RN is Primary Nurse. jb4 20:05 No provider procedures requiring assistance completed. Patient admitted, IV remains in mg2 place. Administered Medications: No medications were administered Outcome: 15:54 Decision to Hospitalize by Provider. [facility] 20:37 Patient left the ED. jb Signatures: Dispatcher [employer] EDMS Brandy Cheema, RN Doc Malagon PA PA [facility] Sheree Hernandez RN RN ss Tucker Palmer RN RN jb Yonatan Aguayo RN RN [facility] Benny Langston RN RN 1
--- NOTE | 2020-10-10 15:55 | EDPHYS ---
Physician Documentation [facility] Name: Aury Garcia Age: 80 yrs Sex: Female : 1940 Arrival Date: 10/10/2020 Time: 13:51 Bed 3 Private MD: ED Physician Rahat Alexander HPI: 10/10 14:00 This 80 yrs old Female presents to ER via EMS with complaints of Dialysis jmm Catheter Problem - pulled out cath. 14:00 The patient has a dialysis catheter in the left subclavian area. Onset: The jmm symptoms/episode began/occurred acutely, last night. The malfunction was discovered at home. Dialysis schedule: . This is a 80 year old female with a history of ESRD that presents to the ED after pulling her left subclavian catheter out. There was minimal bleeding. Patient does not have any complaints of pain but does have a history of dementia. . Historical: - Allergies: 13:53 Codeine; ll1 13:53 Lisinopril; ll1 13:53 Tramadol HCl; ll1 - PMHx: 13:53 chronic kidney disease; Dialysis; Hypertension; Hyperlipidemia; Diabetes - IDDM; CVA; ll1 Dementia; Hypothyroidism; TIA; - PSHx: 13:53 Hip surgery; ll1 - Immunization history:: Pneumococcal vaccine is not up to date. - Social history:: Smoking status: Patient denies any tobacco usage or history of. ROS: 14:00 Constitutional: Negative for fever, chills, and weight loss, Cardiovascular: Negative jmm for chest pain, palpitations, and edema, Respiratory: Negative for shortness of breath, cough, wheezing, and pleuritic chest pain. 14:00 All other systems are negative. Exam: 14:00 Constitutional: This is a well developed, well nourished patient who is awake, alert, jmm and in no acute distress. Head/Face: atraumatic. Eyes: EOMI, no conjunctival erythema appreciated ENT: Moist Mucus Membranes Neck: Trachea midline, Supple 14:00 Cardiovascular: Regular rate and rhythm. No edema appreciated Respiratory: Normal respirations, no respiratory distress appreciated Abdomen/GI: Non distended, soft Back: Normal ROM Skin: General appearance color normal MS/ Extremity: Moves all extremities, no obvious deformities appreciated, no edema noted to the lower extremities 14:00 Chest/axilla: left sided catheter insertion site appreciated, no active bleeding. 14:00 Neuro: Motor: is normal. 14:00 Psych: Behavior/mood is pleasant, cooperative. Vital Signs: 13:54 Temp 97.2; Pain 0/10; ll1 14:07 BP 211 / 61; Pulse 58; Resp 17; Pulse Ox 100% on R/A; ll1 16:20 BP 215 / 54; Pulse 58; Resp 17; Pulse Ox 100% on R/A; ll1 18:44 BP 182 / 47; Pulse 61; Resp 16; Pulse Ox 100% on R/A; ll1 19:15 BP 175 / 48; Pulse 64; Resp 18; Pulse Ox 100% on R/A; jb4 20:05 BP 158 / 38; Pulse 61; Resp 18; Pulse Ox 98% on R/A; mg2 MDM: 13:51 Patient medically screened. [facility] 15:52 Data reviewed: vital signs, nurses notes. Counseling: I had a detailed discussion with liz the patient and/or guardian regarding: the historical points, exam findings, and any diagnostic results supporting the discharge/admit diagnosis, lab results, radiology results, the need for further work-up and treatment in the hospital. ED course: I discussed the patient with Dr. Simon and Dr. Carvalho whom accepted the patient for admission. . 10/10 13:57 Order name: Basic Metabolic Panel [facility] 10/10 13:57 Order name: CBC with Diff [facility] 10/10 13:57 Order name: LFT's; Complete Time: 16:29 [facility] 10/10 13:57 Order name: Magnesium; Complete Time: 16:29 [facility] 10/10 13:57 Order name: NT PRO-BNP; Complete Time: 16:29 [facility] 10/10 13:57 Order name: PT-INR; Complete Time: 15:45 [facility] 10/10 13:57 Order name: Troponin (emerg Dept Use Only); Complete Time: 16:29 [facility] 10/10 13:57 Order name: Type And Screen; Complete Time: 16:29 [facility] 10/10 13:57 Order name: Basic Metabolic Panel; Complete Time: 16:29 [facility] 10/10 13:57 Order name: CBC with Automated Diff; Complete Time: 15:02 [facility] 10/10 15:01 Order name: Manual Differential; Complete Time: 15:02 [facility] 10/10 16:19 Order name: CBC with Automated Diff [facility] 10/10 16:19 Order name: CBC with Automated Diff [facility] 10/10 16:19 Order name: Comprehensive Metabolic Panel [facility] 10/10 13:57 Order name: XRAY Chest (1 view); Complete Time: 14:28 [facility] 10/10 13:57 Order name: EKG; Complete Time: 13:58 [facility] 10/10 13:57 Order name: Cardiac monitoring; Complete Time: 15:45 [facility] 10/10 13:57 Order name: EKG - Nurse/Tech; Complete Time: 16:58 [facility] 10/10 13:57 Order name: IV Saline Lock; Complete Time: 15:45 [facility] 10/10 13:57 Order name: Labs collected and sent; Complete Time: 14:08 [facility] 10/10 15:51 Order name: Diet Renal; Complete Time: 15:52 sv 10/10 16:19 Order name: CONS Physician Consult [facility] 10/10 16:19 Order name: NPO [facility] 10/10 16:19 Order name: Comprehensive Metabolic Panel [facility] 10/10 16:20 Order name: Urinalysis [facility] 10/10 16:23 Order name: Potassium [facility] 10/10 16:23 Order name: Potassium [facility] 10/10 17:10 Order name: COVID-19 : Document "Date of Symptom Onset" if Symptomatic. 10/10 17:57 Order name: CORONAVIRUS [facility] 10/10 18:36 Order name: SARS-COV-2 RT PCR; Complete Time: 18:39 [facility] 10/10 13:57 Order name: O2 Per Protocol; Complete Time: 14:08 [facility] 10/10 13:57 Order name: O2 Sat Monitoring; Complete Time: 14:08 [facility] Administered Medications: No medications were administered Disposition: 10/10/20 15:54 Hospitalization ordered by Maycol Simon for Observation. Preliminary diagnosis is Other complication of vascular dialysis catheter. - Bed requested for Telemetry/MedSurg (observation). - Status is Observation. jb4 - Condition is Stable. - Problem is new. - Symptoms are unchanged. Addendum: 10/12/2020 08:05 Co-signature as Attending Physician, Rahat Alexander MD I agree with the assessment and c nguyễn plan of care. Signatures: Dispatcher [employer] EDMS Debbie Núñez RN Rahat Valdes MD MD cha Mickail, Joel, PA PA [facility] Tucker Palmer RN RN jb4 Benny Langston RN RN ll1 Corrections: (The following items were deleted from the chart) 10/10 20:02 15:54 Hospitalization Ordered by Maycol Simon MD for Observation. Preliminary mw diagnosis is Other complication of vascular dialysis catheter. Bed requested for Telemetry/MedSurg (observation). Status is Observation. Condition is Stable. Problem is new. Symptoms are unchanged. [facility] 20:37 20:02 10/10/2020 15:54 Hospitalization Ordered by Maycol Simon MD for Observation. jb4 Preliminary diagnosis is Other complication of vascular dialysis catheter. Bed requested for Telemetry/MedSurg (observation). Status is Observation. Condition is Stable. Problem is new. Symptoms are unchanged. mw
[2020-10-10 16:05] LABS: ALT/SGPT 13 U/L (12-78); AST/SGOT 15 U/L (15-37); Albumin 3.1 g/dL (3.4-5.0); Alkaline Phosphatase 65 U/L (45-117); BUN Blood Urea Nitrogen 59 mg/dL (7-18); Bicarbonate 25 mmol/L (21-32); Bilirubin Direct < 0.1 mg/dL (0-0.2); Bilirubin Total 0.3 mg/dL (0.2-1.0); Glucose Level 101 mg/dL (74-106); Magnesium 2.4 mg/dL (1.8-2.4); Protein, Total 7.1 g/dL (6.4-8.2); Sodium Level 138 mmol/L (136-145); Troponin (Emerg Dept Use Only) 0.03 ng/mL (0.0-0.045)
[2020-10-10 16:06] LABS: Potassium 2.9 mmol/L (3.5-5.1)
[2020-10-10 16:10] LABS: NT PRO-BNP 31477 pg/mL (<450)
[2020-10-10] MEDS ORDERED: ONDANSETRON 4 MG/2 ML VIAL IV PRN (16:15)
[2020-10-10] MEDS ORDERED: MORPHINE 2 MG/ML SYR IV PRN (16:15)
[2020-10-10] MEDS ORDERED: ACETAMINOPHEN 500 MG TAB PO PRN (16:15)
--- NOTE | 2020-10-10 16:15 | P.HP ---
Certification for Inpatient Patient admitted to: Observation With expected LOS: <2 Midnights Practitioner: I am a practitioner with admitting privileges, knowledge of patient current condition, hospital course, and medical plan of care. Services: Services provided to patient in accordance with Admission requirements found in Title 42 Section 412.3 of the Code of Federal Regulations Patient History Date of Service: 10/10/20 Reason for admission: Pulled out HD Catheter History of Present Illness: 80 yo female with the past medical history of of clear ESRD on HD, DM, HTN, and anemia came to ER after she pulled out hemodialysis catheter accidentally. Patient has a history of dementia as per the family and most of the history is obtained from the family who is at the bedside. Denies any pain or bleeding. Denies any history of fever or chills. No nausea vomiting No sick contacts No recent travel Patient was assessed in the ER vitals was stable and was admitted for HD catheter placement. Surgery was consulted Allergies codeine Allergy (Intermediate, Verified 04/27/20 00:35) Itching/Hives/Rash Home medications list reviewed: Yes Home Medications: Aspirin 120 mg PO DAILY 10/31/19 Atorvastatin Calcium [Lipitor*] 20 mg PO BEDTIME 10/31/19 Pantoprazole [Protonix Tab*] 40 mg PO DAILY 10/31/19 Pentoxifylline 400 mg PO BID 10/31/19 Hydralazine [Apresoline*] 100 mg PO TID 04/27/20 Latanoprost/Pf [Latanoprost 0.005% Eye Drop] 1 drop LEFT EYE BEDTIME 04/27/20 carvediloL [Carvedilol] 1 tab PO BID 08/06/20 Insulin -Regular Human [Novolin -R*] 5 unit SQ BID 09/11/20 Sertraline [Zoloft*] 50 mg PO DAILY 09/11/20 Heparin [Heparin 1,000 units/mL *] 3,000 unit IV EVERY HD vial 09/12/20 Heparin [Heparin 1,000 units/mL *] 6,000 unit IV EVERY HD PRN vial 09/12/20 Nepro Shake [Nepro*] 237 ml PO BID #60 can 09/12/20 - Past Medical/Surgical History Diabetic: Yes Past Medical History: Reviewed- Non-Contributory -: HTN,IDDM,CVA -: kidney failure -: PNE -: hx of left lower leg wound-healed -: ESRD on HD -: HLD -: LEFT EYE CATARACT -: HYPOTHYROIDISM -: HD ACCESS -left upper chest -: BROKEN HIP -: anemia Past Surgical History: Reviewed- Non-Contributory -: HD ACCESS PLACEMENT -: hip replacement Psychosocial/ Personal History: Patient lives with her daughter - Family History Family History: Reviewed- Non-Contributory - Family History Mother -: Heart disease - Social History Smoking Status: Never smoker Alcohol use: No CD- Drugs: No Caffeine use: No Review of Systems 10-point ROS is otherwise unremarkable Physical Examination - Vital Signs Temperature: 98.2 F Blood Pressure: 204/98 Pulse: 82 Respirations: 18 Pulse Ox (%): 96 - Physical Exam General: Alert, In no apparent distress, Cooperative HEENT: Atraumatic, Normocephalic Neck: Supple, 2+ carotid pulse no bruit Respiratory: Clear to auscultation bilaterally, Normal air movement Cardiovascular: Regular rate/rhythm, Normal S1 S2 Capillary refill: <2 Seconds Gastrointestinal: Soft and benign, W/out hepatosplenomegaly Musculoskeletal: No clubbing, No swelling Integumentary: No rashes, No breakdown Neurological: Normal speech, Normal strength at 5/5 x4 extr, Other (Dementia +) Lymphatics: No axilla or inguinal lymphadenopathy - Studies Laboratory Data (last 24 hrs) 10/10/20 14:55: PT 11.6, INR 1.01 10/10/20 14:55: Sodium 138, Potassium 2.9 L*, BUN 59 H, Creatinine 3.22 H, Glucose 101, Magnesium 2.4, Total Bilirubin 0.3, AST 15, ALT 13, Alkaline Phosphatase 65 10/10/20 14:00: WBC 4.20 L, Hgb 9.7 L, Hct 29.2 L, Plt Count 294 Assessment and Plan - Problems (Diagnosis) (1) Complication of vascular access for dialysis Current Visit: No Status: Acute Plan: The patient pulled out her hemodialysis catheter surgery was consulted NPO post midnight Patient to go for more in a.m. (2) Anemia in chronic kidney disease Current Visit: No Status: Chronic Plan: Monitor CBC daily Transfuse p.r.n. Qualifiers: (3) ESRD (end stage renal disease) on dialysis Current Visit: No Status: Chronic Plan: Monitor renal parameters nephrology consulted awaiting further recommendations from nephrology (4) Hypertension Current Visit: No Status: Chronic Plan: Accelerated hypertension noted Will start on hydralazine p.r.n. IV Continue home medications and titrate as needed monitor under telemetry Qualifiers: (5) Diabetes Current Visit: No Status: Chronic Plan: Insulin sliding scale Accu-Chek Q AC and HS Will get an A1c in a.m. Qualifiers: Diabetes mellitus type: type 2 Diabetes mellitus complication status: with kidney complications (6) Hypokalemia Current Visit: Yes Status: Acute Plan: Replace potassium monitor under telemetry Potassium replacement protocol Discharge Plan: Home Plan to discharge in: 48 Hours - Advance Directives Does patient have a Living Will: No Does patient have a Durable POA for Healthcare: No - Code Status/Comfort Care Code Status Assessed: Yes Code Status: Full Code Time Spent Managing Pts Care (In Minutes): 46
[2020-10-10] MEDS ORDERED: HYDRALAZINE HCL 20 MG/ML VIAL IV PRN (16:20)
[2020-10-10] MEDS: INSULIN -REGULAR HUMAN 50 UNIT/0.5 ML ML SQ SCH ×2 (16:30→22:56)
[2020-10-10] MEDS: POTASSIUM 25 MEQ EFFERV TAB PO ONE ×2 (17:00→22:22)
[2020-10-10] MEDS: ATORVASTATIN 20 MG TAB PO SCH ×2 (21:00→22:20)
[2020-10-10] MEDS: carvediloL 12.5 MG TAB PO SCH ×2 (21:00→22:19)
[2020-10-10] MEDS ORDERED: Latanoprost/Pf [Latanoprost 0.005% Eye Drop] 7.5 ML Drops OPTH SCH (21:00)
[2020-10-10] MEDS: POTASSIUM CL SA 10 MEQ TAB PO SCH (21:00)
[2020-10-10] MEDS: PENTOXIFYLLINE ER 400 MG TAB PO SCH (21:00)
[2020-10-10] MEDS: HYDRALAZINE HCL 25 MG TABLET PO SCH ×2 (21:00→22:18)
[2020-10-10] MEDS ORDERED: NA CHLORIDE 0.9% 500 ML IV SCH (23:45)
[2020-10-10] MEDS ORDERED: KCL 20 MEQ/100 mL IVPB 20 MEQ/100 ML BAG IV SCH (23:45)
[2020-10-11 01:26] VITALS: BMI 16.8
[2020-10-11 06:12] LABS: Absolute Lymphocytes (CBC) 0.5 K/uL (0.7-4.9); Basophils % 0.8 % (0-1.3); Hematocrit 26.6 % (36.0-45.0); RBC Red Blood Cell Count 2.85 M/uL (3.86-4.86)
[2020-10-11 06:36] LABS: Albumin 2.9 g/dL (3.4-5.0); Bilirubin Total 0.3 mg/dL (0.2-1.0); Potassium 3.5 mmol/L (3.5-5.1); Protein, Total 6.5 g/dL (6.4-8.2)
[2020-10-11] MEDS: INSULIN -REGULAR HUMAN 50 UNIT/0.5 ML ML SQ SCH ×3 (07:30→16:30)
--- NOTE | 2020-10-11 07:57 | EKG ---
Test Date: 2020-10-10 Test Time: 16:33:23 Tank Calibrator: DENISE MEASUREMENT RESULTS: Intervals: Rate: 66 IA: 150 QRSD: 94 QT: 420 QTc: 440 Mica: P: 79 IA: 150 QRS: 61 T: 138 INTERPRETIVE STATEMENTS: Normal sinus rhythm Septal infarct, age undetermined Abnormal ECG Compared to ECG 08/05/2020 17:31:06 ST (T wave) deviation no longer present Possible ischemia no longer present Myocardial infarct finding still present Electronically Signed On 10-11-20 07:56:23 CDT by Derek Spring
[2020-10-11] MEDS ORDERED: SERTRALINE HCL 50 MG TAB PO SCH (09:00)
[2020-10-11] MEDS ORDERED: NA CHLORIDE 0.9% 100 ML IV ONE (09:00)
[2020-10-11] MEDS: BUPIVACAINE 0.25% PF 30 ML VIAL ONE ×2 (09:01→09:42)
[2020-10-11] MEDS ORDERED: NS 0.9% VIAL 10 ML ONE (09:01)
[2020-10-11] MEDS: HEPARIN 5000 UNIT/ML 1 ML VIAL ONE ×2 (09:02→09:50)
[2020-10-11] MEDS ORDERED: NA CHLORIDE 0.9% 500 ML ONE (09:14)
[2020-10-11] MEDS ORDERED: LIDOCAINE 1% MPF 2 ML AMPULE ONE (09:19)
[2020-10-11] MEDS ORDERED: propofoL 200 MG/20 ML VIAL IV ONE (09:19)
[2020-10-11] MEDS ORDERED: LIDOCAINE 2% MPF 5 ML VIAL ONE (09:19)
[2020-10-11] MEDS ORDERED: Phenylephrine HCl 10 MG/ML 1 ML VIAL ONE (09:20)
[2020-10-11] MEDS: CEFAZOLIN/SWI 1gm 1 GM/10 ML SYR ONE ×2 (09:40→09:44)
--- NOTE | 2020-10-11 10:04 | P.OP ---
Preoperative diagnosis: End Stage Renal Disease Postoperative diagnosis: End Stage Renal Disease Primary procedure: Placement of Tunnelled Hemodialysis Catheter Secondary procedure: Ultrasound, Flouroscopy, microintroducer used Anesthesia: MAC + Local Estimated blood loss: <10cc Specimen: None Findings: dark, non-pulsatile blood, tip @ SVC Complications: None Implants: 23cm cuffed hemosplit catheter Transferred to: Recovery Room Condition: Good
--- NOTE | 2020-10-11 10:53 | RAD REPORT ---
EXAM DESCRIPTION: RAD - Chest Single View - 10/11/2020 10:36 am CLINICAL HISTORY: replacement of HD cath Chest pain. COMPARISON: Chest Single View dated 10/10/2020; Chest Single View dated 08/06/2020; Chest Single View dated 08/05/2020; Chest Single View dated 05/06/2020 FINDINGS: Portable technique limits examination quality. Left-sided venous catheter has tip in the SVC. No pneumothorax is present.
[2020-10-11] MEDS: carvediloL 12.5 MG TAB PO SCH (12:04)
[2020-10-11] MEDS: POTASSIUM CL SA 10 MEQ TAB PO SCH (12:05)
[2020-10-11] MEDS: HYDRALAZINE HCL 25 MG TABLET PO SCH ×2 (12:06→15:16)
[2020-10-11] MEDS: PENTOXIFYLLINE ER 400 MG TAB PO SCH (12:07)
--- NOTE | 2020-10-11 12:37 | RAD REPORT ---
EXAM DESCRIPTION: RAD - Fluoroscopy <1 Hour - 10/11/2020 12:29 pm CLINICAL HISTORY: Venous catheter insertion. PORT A CATH IN OR4 WITH COMPARISON: Fluoroscopy <1 Hour dated 08/06/2020 FINDINGS: Fluoroscopic imaging is submitted from placement of a venous catheter. Details of the pro cedure not available. Fluoroscopy time: 0.1 minutes
[2020-10-11] MEDS ORDERED: CLONIDINE HCL 0.3 MG TAB PO ONE (14:11)
[2020-10-11 14:23] VITALS: O2SAT 97
--- NOTE | 2020-10-11 14:35 | CON ---
Date of Consultation: 10/11/2020 Brief History Of Present Illness: The patient is a 80-year-old female, known to me from pre vious catheter placement where she has a history significant for end-stage renal disease on hemodialy sis. She has a concomitant history of diabetes, hypertension, dementia, and she states she accidenta lly pulled her hemodialysis catheter out and as such, she was brought to the emergency room with the above stated issue. She was therefore seen in the ER. I was consulted for replacement of the tunnel ed hemodialysis catheter as she is dialysis dependent. The patient is confused and has no insight an d conversive during our conversation, consistent with her diagnosis of dementia. Past Medical History: Significant for diabetes, hypertension, anemia, end-stage renal disease, GERD, CVA, kidney failure, pneumonia, left lower leg wound healed, hypothyroidism. She has had a broken h ip. Past Surgical History: She has had multiple hemodialysis catheters placed in the both the subclavian and internal jugular positions bilaterally. She is unaware of any other surgeries. Left cataract s urgery by chart. She also had hip replacement from a surgical standpoint. Allergies: TO CODEINE. Medications: Her home medications include aspirin, Lipitor, Protonix, pentoxifylline, Apresoline, la tanoprost, carvedilol, insulin, Zoloft, heparin, Nepro. Social History: She lives with her daughter. She denies smoking, alcohol, or recreational drug use. Review of Systems: Ten-point review of systems other than in HPI. The patient denies, I am unsure how reliable this is as the patient has dementia, but is conversive. Physical Examination: Vital Signs: At time of my examination her BMI 16, her blood pressure 150/38, pulse 61, respiratory rate 18, temperature 96.9. General: She is awake, alert, and disoriented. She is not oriented to person, place, time, or event . HEENT: Otherwise normocephalic. Her sclerae were anicteric. Mucous membranes are moist. Oropharyn x clear. Neck: Supple without JVD. Chest: Normal expansion and excursion. Her chest wall has an evidence of previous hemodialysis cath eter. Evident in the chest wall with clot overlying the exit site on the left anterior lateral chest . Cardiovascular: Regular rate and rhythm. Pulmonary: Clear to auscultation bilaterally. Skin: Otherwise unremarkable. Laboratory Data: Reveals a white blood count of 4.2, hemoglobin 9.7, hematocrit 29.2, platelet count is 294. Her PT 11.6, INR 1.1. Sodium 138, potassium 2.9, chloride 105, carbon dioxide 25, BUN 59, creatinine 3.2, glucose was 101. Her calcium is 8.1, magnesium 2.4, total bilirubin 0.3, AST 15, ALT 13, alkaline phosphatase is 65. She had a chest x-ray performed which was officially read as no acu te intrathoracic process suspected. Assessment/plan: This is a 80-year-old female, who comes in after removing her hemodialysis catheter , which she is dependent on. 1.IV access. 2.Continue medical management. 3.I have explained the risks, benefits, and alternatives of a placement of tunneled hemodialysis cat heter including, but not limited to bleeding, infection, damage to surrounding tissue, pneumothorax, need further operative procedures, injury to great vessels to the patient's daughter, who is her [facility] [employer] of [employer] transactions attorney. All questions were answered. The patient agrees as well as her daughter azalia ruggiero to proceed with replacement of the hemodialysis catheter in a.m. Thank you for this interesting consult. SAMEER/CONCEPCION Voice ID: [id number] Report ID: [id number]
[2020-10-11 17:33] VITALS: BP 180/76; TEMP 98.4
--- NOTE | 2020-10-11 20:56 | OP ---
Date of Procedure: 10/11/2020 Surgeon: Allen Carvalho MD, Preoperative Diagnosis: End-stage renal disease. Postoperative Diagnosis: End-stage renal disease. Procedure Performed: Placement of a tunneled hemodialysis catheter using ultrasound fluoroscopy with interpretation microintroducer set utilized. Anesthesia: MAC plus local 1% lidocaine. Estimated Blood Loss: Less than 10 cc. Specimen: None. Findings: Dark nonpulsatile blood. Fluoroscopy verified position of catheter tip at SVC. Complications: None. Implants: 23 cm cuffed HemoSplit catheter. Condition/disposition: The patient was transferred to recovery room in good condition. Procedure In Detail: After informed was obtained, the patient was brought to the operating room and prepped and draped in the usual sterile fashion. After adequate anesthesia achieved, ultrasound of t he internal jugular vein on the left side which is the site of previous removal, her right side appea red to have occlusive disease and was less compressible. As such, I opted to go on the left side at this point using ultrasound guidance. I anesthetized the skin overlying the internal jugular vein on the left. I then placed a microintroducer needle into the left jugular vein under direct visualizat ion guidance under ultrasound interpretation and cannulated on the first attempt. At this point, peggy k red nonpulsatile blood was returned. Microwire was advanced into the vein and fluoroscopy verified position at the confluence of the SVC of the microwire. The needle was course removed at this point and I then made a small henry incision at the insertion site and placed a microintroducer sheath in a nd the microwire was removed. The standard wire was then advanced after removing the inner cannula o f the introducer sheath and verified position once again was performed with fluoroscopy showing the c atheter wire going into the SVC. At this point, I made a counterincision on the chest wall after domingo ropriately anesthetizing the skin and the entire tract leading to the insertion site. At this point, I tunneled the tunneling device, bringing the 23 cm HemoSplit catheter up into the insertion site at the jugular insertion site. At this point, the catheter was positioned and I then performed sequent ial dilatation using Seldinger technique over the wire until the introducer sheath was advanced. At this point, I removed the inner cannula, the introducer sheath, and placed the catheter into the SVC confluence verified with fluoroscopic guidance. At this point, the introducer sheath was completely removed. The catheter was then tested and withdrew dark red nonpulsatile blood quite easily from bot h catheters and flushed quite easily with saline. At this point, verification was performed one last time with fluoroscopy showing the SVC confluence as where the distal tip rested. At this point, the catheter was packed with heparin super flush and caps were placed on. A sterile dressing was prepar ed. The skin was then copiously irrigated and closed with interrupted 3-0 nylon sutures. The cathet er was triple ligated to the chest wall with the same said 3-0 nylon suture and a sterile dressing wa s placed over the top. The patient was then positioned in head-up position. The patient tolerated t he procedure well without evidence of complication and transferred to PACU in good condition. All co unts were correct at the end of the case. A stat chest x-ray will be performed to verify position an d ensure no other anomalies occurred. The patient tolerated procedure well without evidence of compl ication and was transferred to PACU in good condition. All counts were correct at the end of the abilio e. TK/MODL Voice ID: [id number] Report ID: [id number]
--- NOTE | 2020-10-27 04:58 | P.DS ---
Discharge Date: 10/11/20 Disposition: ROUTINE DISCHARGE Discharge Condition: GOOD Reason for Admission: Pulled out HD Catheter Consultations: Nephrology; general surgery Brief History of Present Illness: 80 yo female with the past medical history of of clear ESRD on HD, DM, HTN, and anemia came to ER after she pulled out hemodialysis catheter accidentally. Patient has a history of dementia as per the family and most of the history is obtained from the family who is at the bedside. Denies any pain or bleeding. Patient was assessed in the ER vitals was stable and was admitted for HD catheter placement. Surgery was consulted Hospital Course: Patient tolerated the procedure without any difficulty. At this time, patient is stable for discharge with outpatient follow-up. Vital Signs/Physical Exam: Temp Pulse Resp BP Pulse Ox 98.4 F 65 19 180/76 H 98 10/11/20 16:00 10/11/20 16:00 10/11/20 16:00 10/11/20 16:00 10/11/20 16:00 General: Alert, In no apparent distress, Oriented x3 Laboratory Data at Discharge: WBC 6.80 K/uL (4.3-10.9) D 10/11/20 05:53 Hgb 8.6 g/dL (12.0-15.0) L 10/11/20 05:53 Hct 26.6 % (36.0-45.0) L 10/11/20 05:53 Plt Count 211 K/uL (152-406) D 10/11/20 05:53 PT 11.6 SECONDS (9.5-12.5) 10/10/20 14:55 INR 1.01 10/10/20 14:55 Sodium 141 mmol/L (136-145) 10/11/20 05:55 Potassium 3.5 mmol/L (3.5-5.1) 10/11/20 05:55 BUN 75 mg/dL (7-18) H 10/11/20 05:55 Creatinine 3.92 mg/dL (0.55-1.3) H 10/11/20 05:55 Glucose 76 mg/dL (74-106) 10/11/20 05:55 Magnesium 2.4 mg/dL (1.8-2.4) 10/10/20 14:55 Total Bilirubin 0.3 mg/dL (0.2-1.0) 10/11/20 05:55 AST 14 U/L (15-37) L 10/11/20 05:55 ALT 11 U/L (12-78) L 10/11/20 05:55 Alkaline Phosphatase 54 U/L (45-117) 10/11/20 05:55 Physician Discharge Instructions: PROBLEM: HD Catheter Replacement GOAL: Clear understanding of disease process INSTRUCTIONS: Diet: Renal Activity: Fall precautions If you have any questions regarding your stay call [phone] If your symptoms worsen call 911 or go to the ED. OK TO DC IV AND DC HOME FOLLOW-UP WITH PRIMARY CARE PROVIDER IN 1-2 WEEKS FOLLOW-UP WITH Nephrology IN 1-2 WEEKS RETURN TO THE ER IF symptoms worsen CALL or TEXT DR. GONZALES AT [phone] IF ANY QUESTIONS REGARDING HOSPITAL STAY. PLEASE CALL THE FLOOR AT [phone] IF ANY MEDICATION OR NURSING QUESTIONS. Diet: Renal Activity: Fall precautions Followup: Paddy Prince DO [ACTIVE - CAN ADMIT] - Eveline Robbins MD [ACTIVE - CAN ADMIT] - Racquel Marshall DO [Primary Care Provider] - Time spent managing pt's care (in minutes): 35
== END 2020-10-11 18:11 | disposition home or self-care (01) ==
LOC: ER 13:48 → ERHOLD 16:15 → 2ND 20:05
PROVIDERS: ADMIT Family Medicine; ATTEND Hospitalist
PROC: 02HV33Z Insertion of Infusion Device into Superior Vena Cava, Percutaneous Approach (ICD-10-PCS; principal; 2020-10-11 08:00)
DX: T82.42XA Displacement of vascular dialysis catheter, initial encounter (principal); I12.0 Hypertensive chronic kidney disease with stage 5 chronic kidney disease or end stage renal disease; N18.6 End stage renal disease; E11.22 Type 2 diabetes mellitus with diabetic chronic kidney disease; D63.1 Anemia in chronic kidney disease; Z86.73 Personal history of transient ischemic attack (TIA), and cerebral infarction without residual deficits; Z20.822 Contact with and (suspected) exposure to COVID-19; E03.9 Hypothyroidism, unspecified; Z96.649 Presence of unspecified artificial hip joint; Z99.2 Dependence on renal dialysis; F03.90 Unspecified dementia, unspecified severity, without behavioral disturbance, psychotic disturbance, mood disturbance, and anxiety; E87.6 Hypokalemia; Z87.891 Personal history of nicotine dependence; K21.9 Gastro-esophageal reflux disease without esophagitis; R94.31 Abnormal electrocardiogram [ECG] [EKG]
CPT/HCPCS: 36558; 93005; 85025 ×2; 80048; 36415; 86900; 83735; 86850; 85610; 86901; 82947 ×5; 80076; 84484; 80053; 83880; 71045 ×2; 94760 ×3; 99284; U0003; J0360; J2704; J2370; J1644 ×2; J3480; J0690; J7040 ×2; 76000; G0378

== ENCOUNTER 2021-03-01 19:34 | Inpatient (IN) | payer OTHER ==
--- OUTSIDE RECORDS SUMMARY | 2021-03-01 19:39 | XMS REPORT | Continuity of Care Document ---
:1940 Author Organization [facility] t Address [address] [place] [address] Care Team Providers Name Role Phone Pcp Primary Care Physician Unavailable Viktoria Forbes MD Attending Clinician Alvino HENDRICKS Attending Clinician Unavailable NIGEL Attending Clinician Unavailable LUKE HUERTAS Attending Clinician Unavailable CHIDI Attending Clinician Unavailable MARQUITA ABRAHAM Admitting Clinician Unavailable CHIDI Admitting Clinician Unavailable Payers Payer Name Policy Type Policy Number Effective Date Expiration Date S ource Problems Condition Condition Condition Status Onset Resolution [...] 00 Cent er Closed Closed Disease Active Methodi left hip left hip 3-17 st fracture fracture 00:00: Hospit a 00 l Gastrointe Gastrointe Disease Active M ethodi stinal stinal 2-23 st bleed bleed 00:00: Hospita 00 l Acute Acute Disease Active [facility]i pulmonary pulmonary 2-18 st edema edema 00:00: Hospita 00 l Hematoma Hematoma Disease Active Metho di of groin of groin 9-18 st 00:00: Hospita 00 l PAD PAD Disease Active Overview: Method i (periphera (periphera 8-[address] l artery l artery 00:00: g of this Hos ruddy disease) disease) 00 note l might be different from the original. Added automatic ally from request for surgery [id number] st Assessmen t & Plan: Formattin g of this note might be different from the original. Improved symptoms. Continue medical optimizat ion. Continue cilostazo l. Follow-up in 6 months with ABIs and TBI's. 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 00:00: Hospit a with with 00 l hyperglyce hyperglyce misty, with misty, with long-term long-term current current use of use of insulin insulin Essential Essential Disease Active Met hodi hypertensi hypertensi 03-10 on on 00:00: Hospita 00 l Mixed Mixed Disease Active Methodi hyperlipid hyperlipid 03-10 emia emia 00:00: Hospita 00 l ESRD (end ESRD (end Disease Active [facility] St stage stage [facility] - renal renal Medical disease) disease) Center on on dialysis dialysis Allergies, Adverse Reactions, Alerts Allergy Allergy Status Severity Reaction(s) Onset Inactive Treating Comm ents Source Name Type Date Date Clinician Codeine Propensi Active hallucina Meth nery ty to 02-[address] adverse 00:00: Hospita reaction 00 l s to drug Tramadol Propensi Active Other Method i ty to 06-24 reaction( st adverse 00:00: s): Hospita reaction 00 Hallucina l s to tions drug Tramadol Propensi Active Other (See [facility] to Comments) 06-24 [facility] - adverse 00:00: Medical reaction 00 Center s Codeine Propensi Active Other (See [facility] Comments) 12-02 [facility] - adverse 00:00: Medical reaction 00 Center s Family History Family Member Diagnosis Comments Start Date Stop Date Source Natural mother Stroke [facility] Natural father Heart disease [facility] Social History Social Habit Start Date Stop Date Quantity Comments Source History of Current smoker Scientologist tobacco use Hospital Tobacco use and 2019-09-10 2019-09-10 Never used Scientologist exposure 00:00:00 00:00:00 Hospital Alcohol intake 2019-09-10 2019-09-10 Current Scientologist 00:00:00 00:00:00 non-drinker of Hospital alcohol (finding) Tobacco Comment 2017-02-25 2017-02-25 socially Scientologist 00:00:00 00:00:00 Hospital Sex Ass[birth year] At [birth year] Scientologist 00:00:00 00:00:00 Hospital Smoking Status Start Date Stop Date Source Former smoker 2019-09-10 00:00:00 2019-09-10 00:00:00 [facility] Medications Ordered Filled Start Stop Current Ordering Indication Dosage Frequency Signature Comments Components Source Medication Medication Date Date Medication? Clinician (SIG) Name Name hydrALAZINE 2019-06- No [id number] 25mg Q.[id number] Take 1 Methodi (APRESOLINE 06-24 [id number] tablet (25 st ) 25 MG 00:00: 04:59 3D mg total) Hosp matilde tablet 00 :00 by mouth 3 l (three) times a day. aspirin Yes 81mg QD Take 81 mg Meth nery (ECOTRIN) 7-[address] 81 MG 16:23: daily. Hospita enteric 33 l coated tablet latanoprost Yes 1[drp] QD Administer Methodi (XALATAN) 01-[address] 0.005 % 16:23: both eyes Hospi ta ophthalmic 33 nightly. l solution clotrimazol 2020- No [id number] Q.5D Apply Methodi e-betametha 01-03 07-[address] sone 00:00: 04:59 2 (two) Hospita (Lotrisone) 00 :00 times a l 1-0.05 % day. cream levothyroxi Yes [id number] 50ug QD Take 1 Methodi ne 4-28 tablet (50 st (SYNTHROID) 00:00: mcg total) Hospita 50 mcg 00 by mouth l tablet daily. pentoxifyll Yes [id number] TAKE 1 Methodi ine 4-[address] (TRENTal) 00:00: MOUTH Hospita 400 mg CR 00 TWICE A l tablet DAY blood sugar 2019-0 Yes [id number] Use one Methodi diagnostic 4-[address] strips 00:00: two times Hospit a (glucose 00 daily for l blood) blood strip test sugar strips amLODIPine 2020-0 Yes 5mg QD Take [address] (NORVASC) 5 4-15 by mouth Luke s - MG tablet 17:33: daily . Medic al 00 Center aspirin 81 2020-0 Yes 81mg QD Take [address] MG EC 4-15 by mouth [facility] - tablet 17:33: daily. Medical 00 Center atorvastati 2019-0 Yes 20mg QD Take 20 [...] 17 gram 00 (three) Center days. hydrALAZINE 2019-0 Yes hypertensio 25mg Q.[id number] Take [address] (APRESOLINE 4-15 n [id number] by mouth 3 [facility] - ) 25 MG 17:33: 3D (three) Medical tablet 00 times Center daily. levothyroxi 2019-0 Yes 50ug Take [address] ne 4-15 mcg by [facility] - (SYNTHROID, 17:33: mouth Medic al LEVOTHROID) 00 Every Center 50 MCG morning on tablet an empty stomach. insulin 2019-0 Yes type [address] aspart [...] tablet (four) hours as needed for Pain. lancets 2019-0 Yes [id number] Use one Met hodi misc 3-[address] 00:00: times a Hospita 00 day for l glucose blood-gluco 2019-0 Yes [id number] Use to Methodi se meter 3-[address] misc 00:00: blood Hospita 00 glucose l twice daily blood-gluco 2019-0 2020- No [id number] Use as Methodi se meter 3-09 03-[address] kit 00:00: 05:59 Hospita 00 :00 l miscellaneo 2017- Yes [id number] Use to [facility] 2-[address] supply 00:00: blood Hospita (BLOOD 00 pressure l PRESSURE twice CUFF) misc daily Immunizations Ordered Immunization Filled Immunization Date Status Commen ts Source Name Name Pneumococcal 2018-05-31 Completed Scientologist Conjugate 13-Valent 00:00:00 Hospi brooke FLUZONE HIGH-DOSE PF 2018-03-01 Completed Meth [facility]ist 00:00:00 Hospital FLUZONE HIGH-DOSE PF 2017-03-10 Completed Meth odist 00:00:00 Hospital Procedures This patient has no known procedures. Plan of Care Planned Activity Planned Date Details Comments Source Future Scheduled 2021-02-[address] [facility] - Test 00:00:00 (Season Ended) [code = Medic al Center INFLUENZA VACCINE (Season Ended)] Future Scheduled 2020-06-[address] [facility] - Test 00:00:00 WELLNESS (YEAR 2 or Medical Center FIRST YEAR if no IPPE) [code = MEDICARE ANNUAL WELLNESS (YEAR 2 or FIRST YEAR if no IPPE)] Future Scheduled 2020-06-[address] [facility] - Test 00:00:00 (12+) [code = Medical Center DEPRESSION SCREENING (12+)] Future Scheduled 2020-03-[address] [facility] - Test 00:00:00 measurement Medical Center (procedure) [code = 42380633] Future Scheduled 2007 PNEUMOCOCCAL 65+ YRS [facility] - Test 00:00:00 (2 of 2 - PPSV23) Medical Ce nter [code = PNEUMOCOCCAL 65+ YRS (2 of 2 - PPSV23)] Future Scheduled 1992-01-12 SHINGLES VACCINES ([address] [facility] - Test 00:00:00 of 2) [code = SHINGLES Medic al Center VACCINES (1 of 2)] Future Scheduled 1961 DTAP/TDAP/TD VACCINES [facility] Test 00:00:00 (1 - Tdap) [code = Medical C enter DTAP/TDAP/TD VACCINES (1 - Tdap)] Future Scheduled 1960-01-12 HEPATITIS C SCREENING [facility] Test 00:00:00 [code = HEPATITIS C Medical Center SCREENING] Future Scheduled 1954 COVID-19 VACCINE (1) [facility] - Test 00:00:00 [code = COVID-[address] VACCINE (1)] Future Scheduled 1952-01-12 Urine screening for [facility] - Test 00:00:00 protein (procedure) Medical Center [code = 189586868] Future Scheduled 1952-01-[address] DIABETIC EYE EXAM [facility] - Test 00:00:00 [code = DIABETIC EYE Medical Center EXAM] Future Scheduled COVID-19 VACCINE (1) [facility] Test [code = COVID-19 VACCINE (1)] Future Scheduled SHINGLES VACCINES (#1) [facility] Test [code = SHINGLES VACCINES (#1)] Future Scheduled 65+ [facility]UMOCOCCAL [facility] Test VACCINE (2 of 4 - PPSV23) [code = 65+ PNEUMOCOCCAL VACCINE (2 of 4 - PPSV23)] Future Scheduled DIABETIC FOOT [facility] [code = DIABETIC FOOT EXAM] Future Scheduled URINE [facility]ALBUMIN [facility] [code = URINE MICROALBUMIN] Future Scheduled DIABETES: RETINAL EYE [facility] EXAM [code = DIABETES: RETINAL EYE EXAM] Future Scheduled INFLUENZA VACCINE [facility] Test [code = INFLUENZA VACCINE] Encounters Start End Encounter Admission Attending Care Care Encounter Source Date/Time Date/Time Type Type Clinicians Facility Department ID 2020-12-25 2020-12-25 Refill Forbes, 1.2.840.1 [id number] Methodi 00:00:00 00:00:[id number] 3.430.2.7 Hospit a .3.806414 l .8 2020-06-16 2020-06-16 Telephone De Oliveira, 1.2.840.1 [id number] Methodi 00:00:00 00:00:[address] 3.430.2.7 Hospit a .3.181746 l .8 2020-05-07 2020-05-07 Refill Forbes, 1.2.840.1 [id number] Methodi 00:00:00 00:00:[address] Traci Blum [address] 3.430.2.7 Hospit a .3.733601 l .8 2020-04-24 2020-04-24 Orders Forbes, 1.2.840.1 [id number] Methodi 00:00:00 00:00:00 Only Traci Blum 08514.1.[address] 3.430.2.7 Hospit a .3.397847 l .8 2020-04-24 2020-04-24 Orders Forbes, 1.2.840.1 [id number] [id number] Methodi 00:00:00 00:00:00 Only Traci Blum 76924.1.[address] 3.430.2.7 Hospit a .3.837825 l .8 2020-01-04 2020-01-04 Outpatient FORBES, [facility] [id number] [place] 00:00:00 00:00:00 TRACI Dumont [facility] 2019-12-14 2019-12-14 Outpatient FORBES, [facility] [id number] [place] 00:00:00 00:00:00 TRACI [address] 2019-11-14 2019-11-14 Outpatient FORBES, [facility] [id number] [place] 00:00:00 00:00:00 TRACI [address] 2019-10-24 2019-10-24 Outpatient FORBES, [facility] [id number] [place] 00:00:00 00:00:00 TRACI [address] 2019-10-02 2019-10-02 Outpatient ONIEL MANNING [facility] [id number] [place] 00:00:00 00:00:[address] 2019-09-04 2019-09-12 Inpatient CHIDI, [facility] [id number] [place] 00:00:00 00:00:00 DOROTA [address] 2019-08-27 2019-08-27 Outpatient FORBES, [facility] [id number] [place] 00:00:00 00:00:00 TRACI [address] 2019-08-27 2019-08-27 Outpatient FORBES, [facility] [id number] [place] 00:00:00 00:00:00 TRACI [address] 2019-08-07 2019-08-21 Inpatient CHIDI, [facility] [id number] [place] 00:00:00 00:00:00 DOROTA [address] Results Test Description Test Time Test Comments Results Result Comments Source POCT-GLUCOSE METER 2019-10-03 16:59:00 Test Item Value Reference Range Interpretation Comme nts POC-GLUCOSE METER ([employer]) 81 mg/dL 70-110 : [facility] [address] [place] [address] (test code = 1538) [facility] X, 757[address]: Scaler Packer/Techni jamey ID = [id number] for QUEEN MURILLO POCT-GLUCOSE [id number] 11:50:00 Test Item Value Reference Range Interpretation Comments POC-GLUCOSE METER 123 mg/dL 70-110 H : TESTED A T [facility] 6720 ([employer]) (test code = TATIANA Figueroa [facility], 1538) 66072: Scaler Packer/Techni jamey ID = [id number] for DAINA CELAYAQUEEN JONES POCT-GLUCOSE [id number] 11:07:00 Test Item Value Reference Range Interpretation Comments POC-GLUCOSE METER 127 mg/dL 70-110 H : TESTED A T [facility] (BEAKER) (test code = [facility], 1538) 68770: Scaler Packer/Techni jamey ID = [id number] for Argenis renteria, Thomas POCT-GLUCOSE [id number] 08:22:00 Test Item Value Reference Range Interpretation Comments POC-GLUCOSE METER 78 mg/dL 70-110 : TESTED A T [facility] 6720 (BEAKER) (test code = [facility], 1538) 78331: Scaler Packer/Techni jamey ID = [id number] for Imani kaufman Thomas POCT-GLUCOSE [id number] 07:54:00 Test Item Value Reference Range Interpretation Comments POC-GLUCOSE METER 69 mg/dL 70-110 L : TESTED A T [facility] 6720 (BEAKER) (test code = [facility], 1538) 04593: Scaler Packer/Techni jamey ID = [id number] for QUEEN KNOX BASIC METABOLIC [id number] 07:05:00 Test Item Value Reference Range Interpretation [...] S NOT APPLICABLE FOR DIALYSIS PATIEN TS. Scaler Packer ID - PIAYA LCBC W/PLT COUNT & AUTO [id number] 06:42:00 Test Item Value Reference Range Interpretation [...] PERCENT (BEAKER) (test code = 2801) POCT-GLUCOSE [id number] 21:29:00 Test Item Value Reference Range Interpretation Comments POC-GLUCOSE METER 95 mg/dL 70-110 : TESTED A T [facility] 6720 (BEAKER) (test code = [facility], 1538) 03184: Scaler Packer/Techni jamey ID = [id number] for MERLE MILLER BASIC METABOLIC [id number] 17:44:00 Test Item Value Reference Range Interpretation [...] S NOT APPLICABLE FOR DIALYSIS PATIEN TS. Scaler Packer ID - BSPOCT-GLUCOSE [id number] 17:42:00 Test Item Value Reference Range Interpretation Comments POC-GLUCOSE METER 96 mg/dL 70-110 : TESTED A T [facility] 6720 (BEAKER) (test code = [facility], 1538) 99034: Scaler Packer/Techni jamey ID = [id number] for DERIK PEDRO CBC W/PLT COUNT & AUTO [id number] 17:37:00 Test Item Value Reference Range Interpretation [...] PERCENT (BEAKER) (test code = 2801) POCT-GLUCOSE [id number] 13:09:00 Test Item Value Reference Range Interpretation Comments POC-GLUCOSE METER 72 mg/dL 70-110 : TESTED A T [facility] 6720 (BEAKER) (test code = TATIANA SANCHEZ [place], 1538) 92323: Scaler Packer/Techni jamey ID = [id number] for WILL IS, GORGE POCT-GLUCOSE [id number] 08:42:00 Test Item Value Reference Range Interpretation Comments POC-GLUCOSE METER 87 mg/dL 70-110 : TESTED A T [facility] 6720 (BEAKER) (test code = [facility], 1538) 41406: Scaler Packer/Techni jamey ID = [id number] for WILL IS, GORGE POCT-GLUCOSE [id number] 21:42:00 Test Item Value Reference Range Interpretation Comments POC-GLUCOSE METER 94 mg/dL 70-110 : TESTED A T [facility] 6720 (BEAKER) (test code = [facility], 1538) 52022: Scaler Packer/Techni jamey ID = [id number] for ANGELA , UDATU POCT-GLUCOSE [id number] 21:33:00 Test Item Value Reference Range Interpretation Comments POC-GLUCOSE METER 84 mg/dL 70-110 : TESTED A T [facility] 6720 (BEAKER) (test code = [facility], 1538) 21404: Scaler Packer/Techni jamey ID = [id number] for ALEKS S, ABI POCT-GLUCOSE [id number] 12:49:00 Test Item Value Reference Range Interpretation Comments POC-GLUCOSE METER 139 mg/dL 70-110 H : TESTED A T [facility] 6720 (BEAKER) (test code = [facility], 1538) 77840: Scaler Packer/Techni jamey ID = [id number] for REKHA ASHLEY, ABI POCT-GLUCOSE [id number] 10:22:00 Test Item Value Reference Range Interpretation Comments POC-GLUCOSE METER 96 mg/dL 70-110 : TESTED A T [facility] 6720 (BEAKER) (test code = [facility], 1538) 47935: Scaler Packer/Techni jamey ID = [id number] for Dayna Meadows POCT-GLUCOSE [id number] 08:42:00 Test Item Value Reference Range Interpretation Comments POC-GLUCOSE METER 94 mg/dL 70-110 : TESTED A T [facility] 6720 (BEAKER) (test code = [facility], 1538) 89495: Scaler Packer/Techni jamey ID = [id number] for ALEKS S, ABI BLOOD [id number] 05:00:00 Test Item Value Reference Range Interpretation Comments CULTURE (BEAKER) (test No growth in 5 days code = 1095) POCT-GLUCOSE [id number] 21:02:00 Test Item Value Reference Range Interpretation Comments POC-GLUCOSE METER 117 mg/dL 70-110 H : TESTED A T [facility] 6720 (BEAKER) (test code = [facility], 153) 57012: Scaler Packer/Techni jamey ID = [id number] for BLAIRE GARRETT POCT-GLUCOSE [id number] 16:26:00 Test Item Value Reference Range Interpretation Comments POC-GLUCOSE METER 121 mg/dL 70-110 H : TESTED A T [facility] 6720 (BEAKER) (test code = [facility], 153) 13731: Scaler Packer/Techni jamey ID = [id number] for DERIK ALEXANDRA POCT-GLUCOSE [id number] 12:02:00 Test Item Value Reference Range Interpretation Comments POC-GLUCOSE METER 183 mg/dL 70-110 H : TESTED A T [facility] 6720 (BEAKER) (test code = [facility], 153) 18224: Scaler Packer/Techni jamey ID = [id number] for DERIK ALEXANDRA POCT-GLUCOSE [id number] 07:57:00 Test Item Value Reference Range Interpretation Comments POC-GLUCOSE METER 113 mg/dL 70-110 H : TESTED A T [facility] 6720 (BEAKER) (test code = [facility], 153) 56833: Scaler Packer/Techni jamey ID = [id number] for DERIK ALEXANDRA BASIC METABOLIC [id number] 05:44:00 Test Item Value Reference Range Interpretation [...] S NOT APPLICABLE FOR DIALYSIS PATIEN TS. Scaler Packer ID - PIAYA LCBC W/PLT COUNT & AUTO [id number] 05:08:00 Test Item Value Reference Range Interpretation [...] PERCENT (BEAKER) (test code = 2801) POCT-GLUCOSE [id number] 20:17:00 Test Item Value Reference Range Interpretation Comments POC-GLUCOSE METER 164 mg/dL 70-110 H : TESTED A T [facility] 6720 (BEAKER) (test code = [facility], [facility]8) 51689: Scaler Packer/Techni jamey ID = [id number] for SAW RENDONA HEMOGLOBIN AND [id number] 18:31:00 Test Item Value Reference Range Interpretation Comments HEMOGLOBIN (BEAKER) (test code = 8.5 GM/DL 11.2-15.7 L 410) HEMATOCRIT (BEAKER) (test code = 26.9 % 34.1-44.9 L 411) Scaler Packer ID - 6000POCT-GLUCOSE [id number] 16:55:00 Test Item Value Reference Range Interpretation Comments POC-GLUCOSE METER 175 mg/dL 70-110 H : TESTED A T [facility] 6720 (BEAKER) (test code = [facility], 1538) 14551: Scaler Packer/Techni jamey ID = [id number] for REKHA ASHLEY, ABI POCT-GLUCOSE [id number] 12:00:00 Test Item Value Reference Range Interpretation Comments POC-GLUCOSE METER 188 mg/dL 70-110 H : TESTED A T [facility] 6720 (BEAKER) (test code = [facility], 1538) 48720: Scaler Packer/Techni jamey ID = [id number] for REKHA ASHLEY, ABI POCT-GLUCOSE [id number] 08:10:00 Test Item Value Reference Range Interpretation Comments POC-GLUCOSE METER 98 mg/dL 70-110 : TESTED A T [facility] 6720 (BEAKER) (test code = [facility], 1538) 44943: Scaler Packer/Techni jamey ID = [id number] for BRYANT ESTESA POCT-GLUCOSE [id number] 20:30:00 Test Item Value Reference Range Interpretation Comments POC-GLUCOSE METER 136 mg/dL 70-110 H : TESTED A T [facility] 6720 (BEAKER) (test code = [facility], 1538) 72314: Scaler Packer/Techni jamey ID = [id number] for SAW REDNONA POCT-GLUCOSE [id number] 17:08:00 Test Item Value Reference Range Interpretation Comments POC-GLUCOSE METER 157 mg/dL 70-110 H : TESTED A T [facility] 6720 (BEAKER) (test code = [facility], 1538) 36941: Scaler Packer/Techni jamey ID = [id number] for BU RKS, ANIL POCT-GLUCOSE [id number] 11:35:00 Test Item Value Reference Range Interpretation Comments POC-GLUCOSE METER 97 mg/dL 70-110 : TESTED A T [facility] 6720 (BEAKER) (test code = [facility], 1538) 27350: Scaler Packer/Techni jamey ID = [id number] for HAROLDO S, ANIL HEPATIC FUNCTION [id number] 05:17:00 Test Item Value Reference Range Interpretation [...] code = < U/L 6-55 L 347) Scaler Packer ID - MARCELO WBASIC METABOLIC [id number] 05:13:00 Test Item Value Reference Range Interpretation [...] S NOT APPLICABLE FOR DIALYSIS PATIEN TS. Scaler Packer ID - MARCELO WPROTHROMBIN [id number] 04:50:00 Test Item Value Reference Range Interpretation [...] mechanical heart valves.CBC W/PLT COUNT & AUTO [id number] 04:32:00 Test Item Value Reference Range Interpretation [...] PERCENT (BEAKER) (test code = 2801) POCT-GLUCOSE [id number] 21:55:00 Test Item Value Reference Range Interpretation Comments POC-GLUCOSE METER 76 mg/dL 70-110 : TESTED A T [facility] 6720 (BEAKER) (test code = [facility], 1538) 69932: Scaler Packer/Techni jamey ID = [id number] for ANA MITCHELL POCT-GLUCOSE [id number] 17:42:00 Test Item Value Reference Range Interpretation Comments POC-GLUCOSE METER 91 mg/dL 70-110 : TESTED A T [facility] 6720 (BEAKER) (test code = [facility], [facility]8) 55773: Scaler Packer/Techni jamey ID = [id number] for DERIK PEDRO POCT-GLUCOSE [id number] 12:44:00 Test Item Value Reference Range Interpretation Comments POC-GLUCOSE METER 81 mg/dL 70-110 : TESTED A T [facility] 6720 (BEAKER) (test code = [facility], [facility]8) 12694: Scaler Packer/Techni jamey ID = [id number] for DERIK PEDRO POCT-GLUCOSE [id number] 08:13:00 Test Item Value Reference Range Interpretation Comments POC-GLUCOSE METER 81 mg/dL 70-110 : TESTED A T [facility] 6720 (BEAKER) (test code = [facility], [facility]) 40920: Scaler Packer/Techni jamey ID = [id number] for DERIK PEDRO BASIC METABOLIC [id number] 05:48:00 Test Item Value Reference Range Interpretation [...] S NOT APPLICABLE FOR DIALYSIS PATIEN TS. Scaler Packer ID - JB LHEPATIC FUNCTION [id number] 05:48:00 Test Item Value Reference Range Interpretation [...] code = < U/L 6-55 L 347) Scaler Packer ID - JB [id number] 05:47:00 Test Item Value Reference Range Interpretation Comments PHOSPHORUS (BEAKER) (test code = 2.6 mg/dL 2.3-4.7 604) Scaler Packer ID - JB LPROTHROMBIN [id number] 05:20:00 Test Item Value Reference Range Interpretation [...] mechanical heart valves.CBC W/PLT COUNT & AUTO [id number] 05:11:00 Test Item Value Reference Range Interpretation [...] PERCENT (BEAKER) (test code = 2801) POCT-GLUCOSE [id number] 21:09:00 Test Item Value Reference Range Interpretation Comments POC-GLUCOSE METER 125 mg/dL 70-110 H : TESTED A T [facility] 6720 (BEAKER) (test code = [facility], 1538) 61440: Scaler Packer/Techni jamey ID = [id number] for NEGAR KHALIL POCT-GLUCOSE [id number] 17:10:00 Test Item Value Reference Range Interpretation Comments POC-GLUCOSE METER 93 mg/dL 70-110 : TESTED A T [facility] 6720 (BEAKER) (test code = [facility], 1538) 62456: Scaler Packer/Techni jamey ID = [id number] for DERIK PEDRO HEMOGLOBIN [id number] 12:38:00 Test Item Value Reference Range Interpretation Comments HEMOGLOBIN A1C (BEAKER) (test code = 5.6 % 4.3-6.1 368) POCT-GLUCOSE [id number] 11:50:00 Test Item Value Reference Range Interpretation Comments POC-GLUCOSE METER 97 mg/dL 70-110 : TESTED A T [facility] 6720 (BEAKER) (test code = [facility], 1538) 55591: Scaler Packer/Techni jamey ID = [id number] for hTomas Light HEPATITIS B SURFACE [id number] 10:03:00 Test Item Value Reference Range Interpretation Comments HEPATITIS B SURFACE ANTIGEN (2) Nonreactive Nonreactive (BEAKER) (test code = 2585) Scaler Packer ID - HANNAH CCBC W/PLT COUNT & AUTO [id number] 09:36:00 Test Item Value Reference Range Interpretation [...] 0-1 PERCENT (BEAKER) (test code = 2801) [id number] 09:33:00 Test Item Value Reference Range Interpretation Comments MAGNESIUM (BEAKER) (test code = 2.0 mg/dL 1.6-2.6 627) Scaler Packer ID - HANNAH CPOCT-GLUCOSE [id number] 07:55:00 Test Item Value Reference Range Interpretation Comments POC-GLUCOSE METER 65 mg/dL 70-110 L : TESTED A T BSC 6720 (BEAKER) (test code = TATIANA SANCHEZ [place], 1538) [address]: Scaler Packer/Techni jamey ID = [id number] for KIRSTIE ELIOTDERIK [id number] 05:36:00 Test Item Value Reference Range Interpretation Comments FERRITIN (BEAKER) (test code = 1973.82 ng/mL 5.00-275.00 H 361) Scaler Packer ID - MINH MVITAMIN B12 AND [id number] 05:32:00 Test Item Value Reference Range Interpretation Comments VITAMIN B12 (BEAKER) (test code = 1334 pg/mL 213-816 H 774) FOLATE (BEAKER) (test code = 362) 6.40 ng/mL >=7.00 L Scaler Packer ID - MINH MRAD, HIP, 2 VIEWS, [id number] 05:18:00Reason for exam:->fractureFINAL REPORT CLINICAL HISTORY: "Fracture" [...] % 20-55 L (test code = 2590) Scaler Packer ID - MINH MBASIC METABOLIC [id number] 02:38:00 Test Item Value Reference Range Interpretation [...] S NOT APPLICABLE FOR DIALYSIS PATIEN TS. Scaler Packer ID - MINH MPROTHROMBIN [id number] 02:36:00 Test Item Value Reference Range Interpretation [...] for patients wiht mechanical heart valves.HEPATIC FUNCTION [id number] 02:32:00 Test Item Value Reference Range Interpretation [...] (test code = 6 U/L 6-55 347) Scaler Packer ID - MINH MCBC W/PLT COUNT & AUTO [id number] 02:20:00 Test Item Value Reference Range Interpretation [...] (BEAKER) (test code = 2801) COMPREHENSIVE METABOLIC [id number] 23:10:00 Test Item Value Reference Range Interpretation [...] S NOT APPLICABLE FOR DIALYSIS PATIEN TS. Scaler Packer ID - BSPROTHROMBIN [id number] 23:07:00 Test Item Value Reference Range Interpretation [...] mechanical heart valves.CBC W/PLT COUNT & AUTO [id number] 22:49:00 Test Item Value Reference Range Interpretation [...] PERCENT (BEAKER) (test code = 2801) POCT-GLUCOSE [id number] 20:35:00 Test Item Value Reference Range Interpretation Comments POC-GLUCOSE METER 102 mg/dL 70-110 : TESTED A T [facility] 6720 (BEAKER) (test code = TATIANA SANCHEZ [place], 1538) [address]: Scaler Packer/Techni jamey ID = [id number] for [facility]
[2021-03-01 20:55] LABS: Absolute Lymphocytes (CBC) 0.5 K/uL (0.7-4.9); Basophils % 0.8 % (0-1.3); Hematocrit 35.8 % (36.0-45.0); Lymphocytes % 16.7 % (15.3-44.8); MPV 8.8 fL (7.6-11.3); RBC Red Blood Cell Count 3.96 M/uL (3.86-4.86)
--- NOTE | 2021-03-01 21:08 | RAD REPORT ---
EXAM DESCRIPTION: RAD - Chest Single View - 03/01/2021 9:00 pm CLINICAL HISTORY: esrd Chest pain. COMPARISON: Chest Single View dated 10/11/2020; Chest Single View dated 10/10/2020; Chest Single View dated 08/06/2020; Chest Single View dated 08/05/2020 FINDINGS: Portable technique limits examination quality. The lungs are grossly clear. The heart is upper limit of normal in size. Left-sided venous catheter h as tip in the SVC.
[2021-03-01 21:27] LABS: ALT/SGPT 19 U/L (12-78); AST/SGOT 72 U/L (15-37); Albumin 3.1 g/dL (3.4-5.0); Alkaline Phosphatase 65 U/L (45-117); BUN Blood Urea Nitrogen 52 mg/dL (7-18); Bicarbonate 27 mmol/L (21-32); Bilirubin Direct < 0.1 mg/dL (0-0.2); Bilirubin Total 0.3 mg/dL (0.2-1.0); Lipase 241 U/L (73-393); Magnesium 2.4 mg/dL (1.8-2.4); Protein, Total 7.4 g/dL (6.4-8.2); Sodium Level 138 mmol/L (136-145)
[2021-03-01 21:45] LABS: Glucose Level 40 mg/dL (74-106); Potassium 2.9 mmol/L (3.5-5.1)
[2021-03-01 21:46] LABS: Troponin (Emerg Dept Use Only) 8.88 ng/mL (0.0-0.045)
--- NOTE | 2021-03-01 21:52 | ER ---
Nurse's Notes [facility] Name: Aury Garcia Age: 81 yrs Sex: Female : 1940 Arrival Date: 03/01/2021 Time: 19:37 Bed 27 Private MD: Diagnosis: Subsequent non-ST elevation (NSTEMI) myocardial infarction;Hypokalemia;Chronic kidney disease, stage 5;Dehydration Presentation: 03/01 19:49 Chief complaint: Patient states: Pt arrived to ED with home care aids stating that wg patient has been having frequent diarrhea and a runny nose for the past 2 days. States patient has a hx of dementia and pt has a difficult time answering questions. innovations paraprofessional states she has not noticed any vomiting. Pt appears in no acute distress. Skin pink warm dry. Pt Alert but has difficulty answering questions. Coronavirus screen: Vaccine status: Patient reports receiving the 2nd dose of the covid vaccine. Date December 2020 Client presents with at least one sign or symptom that may indicate coronavirus-19. Standard/surgical mask placed on the client. Ebola Screen: Patient negative for fever greater than or equal to 101.5 degrees Fahrenheit, and additional compatible Ebola Virus Disease symptoms Patient denies exposure to infectious person. Patient denies travel to an Ebola-affected area in the 21 days before illness onset. No symptoms or risks identified at this time. Initial Sepsis Screen: Does the patient meet any 2 criteria? No. Patient's initial sepsis screen is negative. Does the patient have a suspected source of infection? No. Patient's initial sepsis screen is negative. Risk Assessment: Do you want to hurt yourself or someone else? Patient reports no desire to harm self or others. Onset of symptoms was February 27, 2021 at 12:00. Care prior to arrival: None. Activity prior to arrival: None. 19:49 Method Of Arrival: Wheelchair 19:49 Acuity: JOSE 3 wg Triage Assessment: 19:54 General: Appears in no apparent distress. slender, malnourished, Behavior is calm, wg cooperative, appropriate for age, Smells of feces. Pain: Denies pain. EENT: No deficits noted. EENT: Parent/caregiver reports the patient having nasal discharge that is watery. Neuro: No deficits noted. Cardiovascular: No deficits noted. Respiratory: No deficits noted. GI: Parent/caregiver reports the patient having diarrhea. : No deficits noted. Derm: No deficits noted. Musculoskeletal: No deficits noted. Historical: - Allergies: 21:27 Codeine; kg 21:27 Lisinopril; kg 21:27 Tramadol HCl; kg - Home Meds: 21:27 pentoxifylline 400 mg Oral TbER 1 tab 2 times per day [Active]; hydralazine 100 mg Oral kg tab 1 tab 2 times per day [Active]; levothyroxine 50 mcg tab 1 tab once daily [Active]; pantoprazole 40 mg Oral TbEC 1 tab once daily [Active]; carvedilol 12.5 mg Oral tab 1 tab every 12 hours [Active]; 21:31 Jardiance 25 mg oral tab 1 tab once daily [Active]; mirtazapine 30 mg Oral tab 1 tab kg once daily [Active]; glimepiride 4 mg Oral tab 1 tab once daily [Active]; furosemide 40 mg Oral tab 1.5 tabs 3 times per day [Active]; hydrochlorothiazide 12.5 mg Oral tab 1 tab once daily [Active]; sevelamer carbonate 800 mg Oral tab 1 tab 3 times per day [Active]; lisinopril 40 mg Oral tab [Active]; atorvastatin 20 mg Oral tab 1 tab once daily [Active]; sertraline 50 mg oral tab 1 tab once daily [Active]; Nifedipine ER Oral 30 mg daily [Active]; - PMHx: 21:04 chronic kidney disease; CVA; Dementia; Dialysis; TIA; Hypothyroidism; Hypertension; kg Diabetes - IDDM; Hyperlipidemia; - Immunization history:: Adult Immunizations up to date, Client reports receiving the 2nd dose of the Covid vaccine, Pfizer, received at dialysis. Unsure of when Client reports receiving the 1st dose of the Covid vaccine, Pfizer, received at dialysis. unsure of the date. . - Social history:: Smoking status: unknown. Screenin:43 Abuse screen: Denies threats or abuse. Denies injuries from another. Nutritional kg screening: No deficits noted. Tuberculosis screening: No symptoms or risk factors identified. Fall Risk None identified. Assessment: 20:56 General: Appears in no apparent distress. Behavior is calm, cooperative, appropriate kg for age, quiet. Pain: Unable to use pain scale. Does not appear to understand pain scale. Pt has dementia, not responding to nurse. Neuro: Level of Consciousness is unresponsive, Oriented to none Moves all extremities. Full function Cardiovascular: Heart tones S1 S2 Capillary refill < 3 seconds Pulses are all present. Rhythm is regular Dialysis shunt: in the anterior aspect of left upper chest. Respiratory: No deficits noted. GI: Rectal exam: Breakdown noted. Stools are reported to be diarrhea. Large amount and frequent diarrhea. Last BM was March 01, 2021. Parent/caregiver reports the patient having diarrhea. : No deficits noted. EENT: No deficits noted. Derm: Wound noted gluteal folds Wound is No bleeding noted. stage II. 22:33 Reassessment: Nurse had made multiple attempts to get patient to drink her potasssium kg but patient refused. Grand daughters at bedside have also tried to get her to drink it with no success. . Vital Signs: 19:49 BP 148 / 61; Pulse 56; Resp 18; Temp 98.9; Pulse Ox 97% on R/A; Weight 43.09 kg; Height wg 4 ft. 8 in. (142.24 cm); Pain 0/10; 20:23 BP 153 / 69; Pulse 60; Resp 16; Pulse Ox 100% on R/A; kg 20:30 BP 142 / 67; Pulse 59; Resp 16; Pulse Ox 99% on R/A; kg 20:45 BP 147 / 60; Pulse 54; Resp 20; Pulse Ox 100% ; kg 21:00 BP 143 / 59; Pulse 55; Resp 16; Pulse Ox 98% ; kg 21:15 BP 147 / 61; Pulse 55; Resp 15; Pulse Ox 98% on R/A; kg 22:15 BP 153 / 68; Pulse 62; Resp 20; Pulse Ox 98% ; kg 22:30 BP 151 / 70; Pulse 60; Resp 16; Pulse Ox 99% ; kg 22:45 BP 147 / 68; Pulse 57; Resp 20; Pulse Ox 100% on R/A; kg 19:49 Body Mass Index 21.30 (43.09 kg, 142.24 cm) wg ED Course: 19:37 Patient arrived in ED. wm 19:38 Adalid Arnold MD is Attending Physician. tw4 19:53 Triage completed. wg 19:53 Arm band placed on right wrist. wg 20:30 Inserted saline lock: 22 gauge in right antecubital area, using aseptic technique. kg Blood collected. 20:35 Lindsay Barragan, RN is Primary Nurse. kg 20:50 Stool Culture Sent. kg 20:50 Stool Culture Sent. kg 20:50 CBC with Automated Diff Sent. kg 20:50 Basic Metabolic Panel Sent. kg 20:50 Basic Metabolic Panel Sent. kg 20:50 CBC with Diff Sent. kg 20:50 Hepatic Function Sent. kg 20:50 Lipase Sent. kg 20:52 XRAY Chest (1 view) Sent. kg 21:00 XRAY Chest (1 view) In Process Unspecified. EDMS 21:43 Patient has correct armband on for positive identification. Placed in gown. Bed in low kg position. Call light in reach. Side rails up X2. Adult w/ patient. 21:50 Tony Dempsey is Hospitalizing Provider. 03/02 01:19 Inserted saline lock:. wg Administered Medications: 03/01 21:50 Drug: D50W 50 ml Route: IVP; Site: right antecubital; kg 22:32 Follow up: Response: No adverse reaction; Marked relief of symptoms; Blood sugar is kg elevated 21:55 Drug: NS 0.9% 250 ml Route: IV; Rate: bolus; Site: right antecubital; kg 03/02 00:01 Follow up: Response: No adverse reaction; IV Status: Completed infusion; IV Intake: kg 250ml 03/01 23:35 Drug: Heparin ([place] Drip) 12 units/kg/hr - (HEParin 64424 units, D5W 500 ml) kg {Co-Signature: em (Luke Reynolds RN).} Route: IV; Rate: calculated rate; Site: right antecubital; 03/02 00:01 Not Given (Patient Refused): Potassium Effervescent Tablet 25 mEq PO once; dissolve in kg 4 ounces of water or juice 00:01 Not Given (Physican changed order): Heparin (MN-Bolus No thrombolytic) - HEParin 60 kg units/kg IVP once; Max 5000 units 00:12 Drug: Potassium Chloride 20 mEq Route: IV; Rate: 50 ml/hr; Site: right antecubital; kg Intake: 00:01 IV: 250ml; Total: 250ml. kg Outcome: 03/01 21:51 Decision to Hospitalize by Provider. 03/02 13:10 Patient left the ED. ld1 Signatures: Dispatcher [employer] Adalid Ferguson MD MD tw4 Luciana Blevins RN RN ld1 Lindsay Barragan RN RN kg Belem Shi Liam, RN Luke Reynolds RN em Corrections: (The following items were deleted from the chart) 03/01 21:54 20:50 CORONAVIRUS+MR.LAB.BRZ drawn and sent. kev SAHU
--- NOTE | 2021-03-01 21:52 | EDPHYS ---
Physician Documentation [facility] Name: Aury Garcia Age: 81 yrs Sex: Female : 1940 Arrival Date: 03/01/2021 Time: 19:37 Bed 27 Private MD: GARO Physician Adalid Arnold HPI: 03/02 01:08 This 81 yrs old Female presents to ER via Wheelchair with complaints of tw4 Diarrhea, Decreased Appetite. 01:08 The patient presents to the emergency department with diarrhea. Onset: The tw4 symptoms/episode began/occurred 2 day(s) ago. Possible causes: unknown. The symptoms are aggravated by nothing. The symptoms are alleviated by nothing. Associated signs and symptoms: The patient has no apparent associated signs or symptoms. The patient has not experienced similar symptoms in the past. 81-year-old female with history of end-stage renal disease comes emerged from complaint of diarrhea per family. Family states that patient has been having diarrhea for the last 2 days. They state that patient has not had any nausea vomiting. Patient has a history of dementia and cannot verbalize any complaints. They state that the patient possibly missed one of her dialysis sessions. Historical: - Allergies: 03/01 21:27 Codeine; kg 21:27 Lisinopril; kg 21:27 Tramadol HCl; kg - Home Meds: 21:27 pentoxifylline 400 mg Oral TbER 1 tab 2 times per day [Active]; hydralazine 100 mg Oral kg tab 1 tab 2 times per day [Active]; levothyroxine 50 mcg tab 1 tab once daily [Active]; pantoprazole 40 mg Oral TbEC 1 tab once daily [Active]; carvedilol 12.5 mg Oral tab 1 tab every 12 hours [Active]; 21:31 Jardiance 25 mg oral tab 1 tab once daily [Active]; mirtazapine 30 mg Oral tab 1 tab kg once daily [Active]; glimepiride 4 mg Oral tab 1 tab once daily [Active]; furosemide 40 mg Oral tab 1.5 tabs 3 times per day [Active]; hydrochlorothiazide 12.5 mg Oral tab 1 tab once daily [Active]; sevelamer carbonate 800 mg Oral tab 1 tab 3 times per day [Active]; lisinopril 40 mg Oral tab [Active]; atorvastatin 20 mg Oral tab 1 tab once daily [Active]; sertraline 50 mg oral tab 1 tab once daily [Active]; Nifedipine ER Oral 30 mg daily [Active]; - PMHx: 21:04 chronic kidney disease; CVA; Dementia; Dialysis; TIA; Hypothyroidism; Hypertension; kg Diabetes - IDDM; Hyperlipidemia; - Immunization history:: Adult Immunizations up to date, Client reports receiving the 2nd dose of the Covid vaccine, Pfizer, received at dialysis. Unsure of when Client reports receiving the 1st dose of the Covid vaccine, Pfizer, received at dialysis. unsure of the date. . - Social history:: Smoking status: unknown. ROS: 03/02 01:08 Unable to obtain ROS due to baseline dementia. tw4 Exam: 01:08 Constitutional: This is a well developed, well nourished patient who is awake, alert, tw4 and in no acute distress. Head/Face: Normocephalic, atraumatic. Chest/axilla: Normal chest wall appearance and motion. Nontender with no deformity. No lesions are appreciated. Cardiovascular: Regular rate and rhythm with a normal S1 and S2. No gallops, murmurs, or rubs. Normal PMI, no JVD. No pulse deficits. Respiratory: Lungs have equal breath sounds bilaterally, clear to auscultation and percussion. No rales, rhonchi or wheezes noted. No increased work of breathing, no retractions or nasal flaring. Abdomen/GI: Soft, non-tender, with normal bowel sounds. No distension or tympany. No guarding or rebound. No evidence of tenderness throughout. Back: No spinal tenderness. No costovertebral tenderness. Full range of motion. MS/ Extremity: Pulses equal, no cyanosis. Neurovascular intact. Full, normal range of motion. Neuro: Awake and alert, GCS 15, oriented to person, place, time, and situation. Cranial nerves II-XII grossly intact. Motor strength 5/5 in all extremities. Sensory grossly intact. Cerebellar exam normal. Normal gait. Vital Signs: 03/01 19:49 BP 148 / 61; Pulse 56; Resp 18; Temp 98.9; Pulse Ox 97% on R/A; Weight 43.09 kg; Height wg 4 ft. 8 in. (142.24 cm); Pain 0/10; 20:23 BP 153 / 69; Pulse 60; Resp 16; Pulse Ox 100% on R/A; kg 20:30 BP 142 / 67; Pulse 59; Resp 16; Pulse Ox 99% on R/A; kg 20:45 BP 147 / 60; Pulse 54; Resp 20; Pulse Ox 100% ; kg 21:00 BP 143 / 59; Pulse 55; Resp 16; Pulse Ox 98% ; kg 21:15 BP 147 / 61; Pulse 55; Resp 15; Pulse Ox 98% on R/A; kg 22:15 BP 153 / 68; Pulse 62; Resp 20; Pulse Ox 98% ; kg 22:30 BP 151 / 70; Pulse 60; Resp 16; Pulse Ox 99% ; kg 22:45 BP 147 / 68; Pulse 57; Resp 20; Pulse Ox 100% on R/A; kg 19:49 Body Mass Index 21.30 (43.09 kg, 142.24 cm) wg MDM: 19:59 Patient medically screened. tw4 03/02 01:11 Differential diagnosis: Nonspecific abd pain, gastritis. Data reviewed: vital signs, tw4 nurses notes. Data interpreted: Pulse oximetry: Interpretation: normal. Counseling: I had a detailed discussion with the patient and/or guardian regarding: the historical points, exam findings, and any diagnostic results supporting the discharge/admit diagnosis, lab results, radiology results. Physician consultation: Tony Dempsey regarding admission, to the telemetry unit. patient's condition. 01:28 ED course: Patient resting comfortably on the stretcher in emergency department. tw4 Patient's troponin returned at 8.8. Patient's potassium remained at 2.2. Patient was heparinized with IV heparin drip. Patient had a potassium placed p.o. we will consult nephrology most likely patient's hypokalemia is related to her diarrhea. Consult for cardiology G will also be obtained. 03/01 19:39 Order name: Basic Metabolic Panel tw4 03/01 19:39 Order name: CBC with Diff tw4 03/01 19:39 Order name: Hepatic Function; Complete Time: 21:52 tw4 03/01 19:39 Order name: Lipase; Complete Time: 21:52 tw4 03/01 19:39 Order name: Basic Metabolic Panel; Complete Time: 21:52 EDMS 03/01 19:39 Order name: CBC with Automated Diff; Complete Time: 21:52 EDMS 03/01 20:03 Order name: Stool Culture 03/01 20:03 Order name: Stool Culture EDGA 03/01 21:01 Order name: Troponin (Emerg Dept Use Only); Complete Time: 21:47 EDGA 03/01 21:01 Order name: Magnesium; Complete Time: 21:52 EDGA 03/01 22:42 Order name: Glucose, Ancillary Testing EDGA 03/01 22:57 Order name: SARS-COV-2 RT PCR EDGA 03/02 06:28 Order name: CBC with Automated Diff EDGA 03/02 06:51 Order name: Protime (+INR) EDGA 03/02 06:51 Order name: PTT, Activated Partial Thromb EDGA 03/02 06:52 Order name: Comprehensive Metabolic Panel EDGA 03/02 06:52 Order name: Phosphorus EDGA 03/02 06:52 Order name: Troponin I EDGA 03/02 06:52 Order name: NT PRO-BNP EDGA 03/02 06:52 Order name: Lipid Profile EDGA 03/02 06:52 Order name: T4 Free EDGA 03/02 06:52 Order name: Magnesium EDGA 03/02 06:52 Order name: Thyroid Stimulating Hormone EDGA 03/02 07:29 Order name: Glucose, Ancillary Testing EDGA 03/02 08:10 Order name: Glucose, Ancillary Testing EDGA 03/02 09:45 Order name: CBC Smear Scan EDGA 03/02 10:33 Order name: Glucose, Ancillary Testing EDGA 03/01 19:39 Order name: IV Saline Lock; Complete Time: 20:50 tw4 03/01 19:39 Order name: Labs collected and sent; Complete Time: 20:50 tw4 03/01 20:31 Order name: XRAY Chest (1 view); Complete Time: 21:52 tw4 03/01 20:31 Order name: EKG; Complete Time: 20:31 tw4 03/01 20:31 Order name: Cardiac monitoring; Complete Time: 20:52 tw4 03/01 20:31 Order name: EKG - Nurse/Tech; Complete Time: 20:52 tw4 03/01 20:31 Order name: O2 Per Protocol; Complete Time: 20:52 tw4 03/01 20:31 Order name: O2 Sat Monitoring; Complete Time: 20:52 tw4 03/02 00:38 Order name: CONS Physician Consult EDGA 03/02 10:48 Order name: Troponin I [facility] 03/02 12:40 Order name: Glucose, Ancillary Testing EDGA EC:08 Rate is 62 beats/min. Rhythm is regular. QRS [place] is Normal. NM interval is normal. QRS tw4 interval is normal. QT interval is normal. No Q waves. T waves are Inverted in leads I, II, aVF, V4, V5, V6. No ST changes noted. Clinical impression: Abnormal EKG without significant change. Interpreted by me. Reviewed by me. Administered Medications: 03/01 21:50 Drug: D50W 50 ml Route: IVP; Site: right antecubital; kg 22:32 Follow up: Response: No adverse reaction; Marked relief of symptoms; Blood sugar is kg elevated 21:55 Drug: NS 0.9% 250 ml Route: IV; Rate: bolus; Site: right antecubital; kg 03/02 00:01 Follow up: Response: No adverse reaction; IV Status: Completed infusion; IV Intake: kg 250ml 03/01 23:35 Drug: Heparin ([place] Drip) 12 units/kg/hr - (HEParin 30123 units, D5W 500 ml) kg {Co-Signature: em (Luke Reynolds RN).} Route: IV; Rate: calculated rate; Site: right antecubital; 03/02 00:01 Not Given (Patient Refused): Potassium Effervescent Tablet 25 mEq PO once; dissolve in kg 4 ounces of water or juice 00:01 Not Given (Physican changed order): Heparin ([place]-Bolus No thrombolytic) - HEParin 60 kg units/kg IVP once; Max 5000 units 00:12 Drug: Potassium Chloride 20 mEq Route: IV; Rate: 50 ml/hr; Site: right antecubital; kg Disposition Summary: 03/01/21 21:51 Hospitalization Ordered Hospitalization Status: Inpatient Admission tw4 Provider: Tony Dempsey twParul Condition: Stable tw4 Problem: new tw4 Symptoms: have improved tw4 Bed/Room Type: Standard tw4 Location: Telemetry/MedSurg (Inpatient)(03/02/21 10:01) bd Room Assignment: 414(03/02/21 10:01) bd Diagnosis - Subsequent non-ST elevation (NSTEMI) myocardial infarction tw4 - Hypokalemia tw4 - Chronic kidney disease, stage 5 tw4 - Dehydration tw4 Forms: - Medication Reconciliation Form tw4 - SBAR form tw4 Critical care time excluding procedures: 01:28 Critical care time: Bedside Care: 40 minutes, Consultation: 5 minutes, Family tw4 Intervention: 10 minutes. Total time: 55 minutes Signatures: Dispatcher [employer] EDMS Kavya Dennis Martha, RN RN Adalid Arnold MD MD 4 Lindsay Barragan RN RN Luke Reynolds RN em Corrections: (The following items were deleted from the chart) 03/01 21:00 20:31 MAGNESIUM+C.LAB.BRZ ordered. EDMS EDMS 21:00 20:31 TROPONIN (EMERG DEPT USE ONLY)+C.LAB.BRZ ordered. EDMS EDMS 21:54 19:39 CORONAVIRUS+MR.LAB.BRZ ordered. EDMS EDMS 22:05 21:51 Telemetry/MedSurg (Inpatient) [facility] 22:05 21:51 [facility] 03/02 10:03/01 22:05 [facility] ER HOLD [facility] 03/02 10:03/01 22:05 ERHOLD- [facility]
[2021-03-01] MEDS ORDERED: D50W 25 GM/50 ML SYRINGE IV ONE (22:11)
[2021-03-01] MEDS ORDERED: NA CHLORIDE 0.9% 250 ML ONE (22:30)
[2021-03-01] MEDS ORDERED: POTASSIUM 25 MEQ EFFERV TAB ONE (22:30)
[2021-03-01] MEDS ORDERED: HEPARIN/D5W 25,000 UNIT/500 ML BAG IV ONE (23:22)
[2021-03-01] MEDS ORDERED: POTASSIUM CL SA 10 MEQ TAB PO ONE (23:41)
[2021-03-02] MEDS ORDERED: KCL 20 MEQ/100 mL IVPB 20 MEQ/100 ML BAG IV ONE (00:28)
--- NOTE | 2021-03-02 01:05 | P.HP ---
Certification for Inpatient Patient admitted to: Inpatient With expected LOS: >2 Midnights Patient will require the following post-hospital care: None Practitioner: I am a practitioner with admitting privileges, knowledge of patient current condition, hospital course, and medical plan of care. Services: Services provided to patient in accordance with Admission requirements found in Title 42 Section 412.3 of the Code of Federal Regulations Patient History Date of Service: 03/02/21 Reason for admission: NSTEMI History of Present Illness: 81 yo F with ESRD on HD TTS, DM, HTN, and anemia here today for diarrhea. She has had intermittent diarrhea for the past few days but it has worsened today. Even in the [address] from home to hospital, caregiver had to green chain puller to change her. Patient with dementia, unable to answer questions. Resting calmly at bedside. K 2.9, BUN 52, Cr 3.53, GFR 12. Glu 40. Trop 8.88. COVID +. Potassium and an amp of glucose given in the ED. Heparin drip initiated in the ED. Stool sent for cdiff and cultures. Allergies codeine Allergy (Intermediate, Verified 04/27/20 00:35) Itching/Hives/Rash - Past Medical/Surgical History Diabetic: Yes -: HTN,IDDM,CVA -: kidney failure -: PNE -: hx of left lower leg wound-healed -: ESRD on HD -: HLD -: LEFT EYE CATARACT -: HYPOTHYROIDISM -: HD ACCESS -left upper chest -: BROKEN HIP -: anemia -: HD ACCESS PLACEMENT -: hip replacement Psychosocial/ Personal History: Patient lives with her daughter - Family History Mother -: Heart disease - Social History Smoking Status: Former smoker Alcohol use: No CD- Drugs: No Caffeine use: No Place of Residence: Home Review of Systems is unable to be obtained Physical Examination - Physical Exam General: In no apparent distress, Demented HEENT: Atraumatic, PERRLA, Mucous membr. moist/pink, EOMI, Sclerae nonicteric Neck: Supple, 2+ carotid pulse no bruit, No LAD, Without JVD or thyroid abnormality Respiratory: Normal air movement Cardiovascular: No edema, Regular rate/rhythm, Normal S1 S2 Capillary refill: <2 Seconds Gastrointestinal: Normal bowel sounds, No tenderness Musculoskeletal: No tenderness Integumentary: No rashes Neurological: Normal tone, Sensation intact, Dementia Lymphatics: No axilla or inguinal lymphadenopathy Urinary: Dialysis catheter - Studies Laboratory Data (last 24 hrs) 03/01/21 20:35: Magnesium Cancelled 03/01/21 20:35: WBC 3.10 L, Hgb 11.8 L, Hct 35.8 L, Plt Count 171 03/01/21 20:35: Sodium 138, Potassium 2.9 L*, BUN 52 H, Creatinine 3.53 H, Glucose 40 L*, Magnesium 2.4, Total Bilirubin 0.3, AST 72 H, ALT 19, Alkaline Phosphatase 65, Lipase 241 Assessment and Plan - Problems (Diagnosis) (1) NSTEMI (non-ST elevated myocardial infarction) Current Visit: Yes Status: Acute (2) COVID Current Visit: Yes Status: Acute (3) Dementia Current Visit: Yes Status: Chronic Qualifiers: Dementia type: unspecified type Dementia behavioral disturbance: without behavioral disturbance Qualified Code(s): F03.90 - Unspecified dementia without behavioral disturbance (4) Hypothyroid Current Visit: Yes Status: Chronic Qualifiers: Hypothyroidism type: unspecified Qualified Code(s): E03.9 - Hypothyroidism, unspecified (5) Hypokalemia Current Visit: No Status: Acute (6) Anemia in chronic kidney disease Current Visit: No Status: Chronic Qualifiers: Chronic kidney disease stage: on chronic dialysis (7) Diabetes Current Visit: No Status: Chronic Qualifiers: Diabetes mellitus type: type 2 Diabetes mellitus custodial insulin use: unspecified watcher automat long goods insulin use status Diabetes mellitus complication status: with kidney complications Diabetes mellitus complication detail: with chronic kidney disease Chronic kidney disease stage: on chronic dialysis Qualified Code(s): E11.22 - Type 2 diabetes mellitus with diabetic chronic kidney disease; N18.6 - End stage renal disease; Z99.2 - Dependence on renal dialysis (8) ESRD (end stage renal disease) on dialysis Current Visit: No Status: Chronic (9) Hypertension Current Visit: No Status: Chronic Qualifiers: Hypertension type: primary hypertension Qualified Code(s): I10 - Essential (primary) hypertension - Plan on telemetry, trend troponins, repeat EKG cardiology consulted, continue heparin drip daily ASA, metoprolol, atorvastatin lipid and thyroid panel pending nephrology consulted, continue dialysis, monitor BMP reconcile and continue home medications Discharge Plan: Home Plan to discharge in: 48 Hours - Advance Directives Does patient have a Living Will: No Does patient have a Durable POA for Healthcare: No - Code Status/Comfort Care Code Status Assessed: Yes (full code ) Critical Care: No Time Spent Managing Pts Care (In Minutes): 70
[2021-03-02] MEDS ORDERED: ONDANSETRON 4 MG/2 ML VIAL IV PRN (02:56)
[2021-03-02] MEDS ORDERED: HEPARIN/D5W 25,000 UNIT/500 ML BAG IV SCH (02:56)
[2021-03-02] MEDS ORDERED: ACETAMINOPHEN 500 MG TAB PO PRN (02:56)
[2021-03-02] MEDS: METOPROLOL TAR 25 MG TAB PO SCH ×2 (06:00→17:37)
[2021-03-02 06:23] LABS: Absolute Lymphocytes (CBC) 0.6 K/uL (0.7-4.9); Basophils % 0.6 % (0-1.3); Hematocrit 33.4 % (36.0-45.0); MPV 8.9 fL (7.6-11.3); RBC Red Blood Cell Count 3.72 M/uL (3.86-4.86)
[2021-03-02] MEDS ORDERED: METOPROLOL TAR 25 MG TAB ONE (06:34)
[2021-03-02 06:50] LABS: ALT/SGPT 17 U/L (12-78); AST/SGOT 54 U/L (15-37); Albumin 2.7 g/dL (3.4-5.0); Alkaline Phosphatase 57 U/L (45-117); BUN Blood Urea Nitrogen 58 mg/dL (7-18); Bicarbonate 26 mmol/L (21-32); Bilirubin Total 0.2 mg/dL (0.2-1.0); Glucose Level 56 mg/dL (74-106); HDL Cholesterol 62 mg/dL (40-60); LDL Cholesterol, Calculated 71 (<130); Magnesium 2.3 mg/dL (1.8-2.4); Potassium 3.6 mmol/L (3.5-5.1); Protein, Total 6.6 g/dL (6.4-8.2); Sodium Level 139 mmol/L (136-145); Thyroid Stimulating Hormone 0.927 uIU/mL (0.360-3.740)
[2021-03-02 06:51] LABS: NT PRO-BNP > 175000 pg/mL (<450)
[2021-03-02 06:52] LABS: Troponin I 7.18 ng/mL (0.0-0.045)
[2021-03-02] MEDS: INSULIN -REGULAR HUMAN 50 UNIT/0.5 ML ML SQ SCH ×4 (07:30→21:00)
[2021-03-02] MEDS ORDERED: D50W 25 GM/50 ML SYRINGE IV ONE ×3 (07:37→12:47)
[2021-03-02] MEDS: ASPIRIN EC 81 MG TAB PO SCH (09:00)
[2021-03-02 09:44] LABS: Blood Morphology Comment NOT SEEN (NOT SEEN); Platelet Estimate ADEQ; White Blood Cell Scan OK (OK)
[2021-03-02] MEDS ORDERED: ASPIRIN 81 MG CHEWABLE TABLET ONE (12:40)
[2021-03-02] MEDS ORDERED: D50W 50 ML IV ONE (12:44)
[2021-03-02] MEDS: D5 0.45 NS 1,000 ML IV SCH (12:56)
[2021-03-02] MEDS ORDERED: D5 0.45 NS 1,000 ML IV ONE (13:18)
--- NOTE | 2021-03-02 14:12 | ECHO ---
HEIGHT: 4 ft 8 in WEIGHT: 94 lb 12.78 oz DATE OF STUDY: 03/02/[address]: Derek Spring MD 2-DIMENSIONAL: YES M.MODE: YES DOPPLER: YES COLOR FLOW: YES TDS: NO PORTABLE: YES DEFINITY: NO BUBBLE STUDY: NO DIAGNOSIS: ELEVATED TROPONIN CARDIAC HISTORY: CATHERIZATION: SURGERY: PROSTHETIC VALVE: PACEMAKER: MEASUREMENTS (cm) DIASTOLIC (NORMALS) SYSTOLIC (NORMALS) IVSd 0.9 (0.6-1.2) LA Diam 3.1 (1.9-4.0) LVEF 43% LVIDd 3.8 (3.5-5.7) LVIDs 3.0 (2.0-3.5) %FS 21% LVPWd 1.0 (0.6-1.2) Ao Diam 2.2 (2.0-3.7) 2 DIMENSIONAL ASSESSMENT: RIGHT ATRIUM: NORMAL LEFT ATRIUM: ENLARGED RIGHT VENTRICLE: NORMAL LEFT VENTRICLE: DEPRESSED FUNCTION TRICUSPID VALVE: MITRAL VALVE: PULMONIC VALVE: NORMAL AORTIC VALVE: NORMAL PERICARDIAL EFFUSION: TRACE AORTIC ROOT: NORMAL LEFT VENTRICULAR WALL MOTION: ANTEROSEPTAL AND APICAL HYPOKINESIS. DOPPLER/COLOR FLOW: SEE BELOW. COMMENTS: MILDLY DEPRESSED LEFT VENTRICULAR EJECTION FRACTION OF 40-45%. ANTEROSEPTAL AND APICAL HYPOKINESIS. SEVERE MITRAL REGURGITATION. MODERATE TO SEVERE TRICUSPID REGURGITATION. SEVERE DIASTOLIC DYSFUNCTION. SEVERE PULMONARY HYPERTENSION WITH RIGHT VENTRICULAR SYSTOLIC PRESSURE >60 mmHg. PLEURAL EFFUSION. TECHNOLOGIST: Fidel MAYORGA
--- NOTE | 2021-03-02 16:49 | P.PN ---
Date of Service: 03/02/21 Patient unable to give any subjective complain. She is currently hypertensive. Troponin trended down from 8 to 7. Patient seen by cardiology. Elevated troponin likely secondary to reduced renal clearance. No further intervention per cardiology. Patient has intermittent hypoglycemia. Plan: IV antibiotics-Cipro and Flagyl. Awaiting stool for C. diff and other stool studies. Nephrology consulted for hemodialysis. Start D51/2NS for hypoglycemia. Feeding as tolerated. Consider NG tube feeding for poor oral intake.
[2021-03-02] MEDS: METRONIDAZOLE 500mg IVPB 500 MG/100 ML BAG IV SCH (17:00)
[2021-03-02] MEDS: D50W 25 GM/50 ML SYRINGE IV PRN (21:15)
[2021-03-02] MEDS: ATORVASTATIN 40 MG TAB PO SCH (21:53)
[2021-03-02] MEDS: CIPROFLOXACIN 400mg IV 400 MG/200 ML BAG IV SCH (21:56)
[2021-03-03] MEDS: METRONIDAZOLE 500mg IVPB 500 MG/100 ML BAG IV SCH ×3 (01:31→17:34)
[2021-03-03] MEDS: D50W 25 GM/50 ML SYRINGE IV PRN ×2 (05:45→18:31)
[2021-03-03] MEDS: METOPROLOL TAR 25 MG TAB PO SCH ×2 (06:00→17:34)
--- NOTE | 2021-03-03 06:23 | P.PN ---
Subjective Date of Service: 03/03/21 Chief Complaint: NSTEMI Subjective: No new changes (patient only wanting to answer some of my questions, denies pain, no nausea/vomiting. doesn't respond when asked if she is still having diarrhea, only stares back at me.) Review of Systems 10-point ROS is otherwise unremarkable Physical Examination - Vital Signs Temperature: 97.4 F Blood Pressure: 167/86 Pulse: 84 Respirations: 16 Pulse Ox (%): 94 Assessment & Plan Physician Review Additional Text: Physical Exam Gen: NAD, stares blankly at me, cachectic appearing HEENT: normal conjunctiva, sclera anicteric Pulm: nonlabored on room air CV: regular rate/rhythm, no edema Abd: soft, NTND MSK: no joint swelling/tenderness Problem List Diarrhea secondary to colitis vs COVID-19 NSTEMI COVID-19+ Dementia ESRD on HD Diabetes mellitus type 2, insulin- dependent Hypertension Hyperlipidemia Hypothyroidism, chronic Anemia in chronic disease Chronic Diastolic CHF Patient not wanting to answer all my questions, difficult to obtain accurate ROS states she feels "ok" trop trended down, cardiology consulted, likely secondary to reduced renal clearance, no further intervention recommended at this time Echo: mod-severe TR, severe D-CHF has had intermittent hypoglycemia, nursing staff report she has not been eating much at times continue cipro/flagyl for diarrhea/colitis nephrology consulted for HD continue D5 1/2NS for hypoglycemia, encourage PO intake Awaiting stool for C. diff and other stool studies. Consider NG tube feeding for poor oral intake if does not improve. Dispo: anticipate dc home in several days Time Spent Managing Pts Care (In Minutes): 40
[2021-03-03 07:33] LABS: Absolute Lymphocytes (CBC) 0.4 K/uL (0.7-4.9); Basophils % 0.4 % (0-1.3); Hematocrit 34.1 % (36.0-45.0); Lymphocytes % 18.9 % (15.3-44.8); MPV 9.1 fL (7.6-11.3); RBC Red Blood Cell Count 3.76 M/uL (3.86-4.86)
[2021-03-03 08:04] LABS: Albumin 2.8 g/dL (3.4-5.0); Bilirubin Total 0.3 mg/dL (0.2-1.0); C-Reactive Protein 6.37 mg/L (<3.00); Ferritin 1635.1 ng/mL (8-388); Magnesium 2.1 mg/dL (1.8-2.4); Potassium 3.4 mmol/L (3.5-5.1); Protein, Total 6.7 g/dL (6.4-8.2)
[2021-03-03] MEDS: CIPROFLOXACIN 400mg IV 400 MG/200 ML BAG IV SCH (09:43)
[2021-03-03] MEDS: ASPIRIN EC 81 MG TAB PO SCH (09:43)
[2021-03-03] MEDS: D5 0.45 NS 1,000 ML IV SCH (14:13)
[2021-03-03] MEDS: HYDRALAZINE HCL 25 MG TABLET PO SCH ×3 (17:34→21:00)
[2021-03-03] MEDS: ATORVASTATIN 40 MG TAB PO SCH ×2 (20:15→21:00)
[2021-03-04] MEDS: METRONIDAZOLE 500mg IVPB 500 MG/100 ML BAG IV SCH ×3 (00:25→17:06)
[2021-03-04 04:31] LABS: Absolute Lymphocytes (CBC) 0.6 K/uL (0.7-4.9); Basophils % 0.4 % (0-1.3); Hematocrit 34.9 % (36.0-45.0); Lymphocytes % 19.4 % (15.3-44.8); MPV 8.8 fL (7.6-11.3)
[2021-03-04 04:48] LABS: Albumin 2.8 g/dL (3.4-5.0); Bilirubin Total 0.3 mg/dL (0.2-1.0); Protein, Total 6.7 g/dL (6.4-8.2)
[2021-03-04 04:49] LABS: C-Reactive Protein 6.92 mg/L (<3.00); Ferritin 1665.3 ng/mL (8-388); Magnesium 1.9 mg/dL (1.8-2.4)
[2021-03-04] MEDS: D5 0.45 NS 1,000 ML IV SCH (05:00)
[2021-03-04] MEDS: METOPROLOL TAR 25 MG TAB PO SCH ×2 (06:00→18:00)
[2021-03-04] MEDS: CIPROFLOXACIN 400mg IV 400 MG/200 ML BAG IV SCH (09:38)
[2021-03-04] MEDS: ASPIRIN EC 81 MG TAB PO SCH (09:39)
[2021-03-04] MEDS: HYDRALAZINE HCL 25 MG TABLET PO SCH ×3 (09:39→20:45)
[2021-03-04] MEDS: HYDRALAZINE HCL 20 MG/ML VIAL IV PRN ×2 (11:30→17:07)
--- NOTE | 2021-03-04 13:32 | CON ---
Date of Consultation: 03/02/2021 Patient was admitted on 03/02/[address] Dempsey's service. I saw the patient on 03/02/2021. Reason For Consultation: Elevated troponin. History Of Present Illness: Ms. Garcia is a 81-year-old admitted with COVID, was noted to have hyp okalemia, creatinine of 3.69. She is an end-stage renal disease patient, on hemodialysis. She has b een having diarrhea for 2 days. No chest pain, nausea, vomiting, diaphoresis, PND, orthopnea, pedal edema, palpitation, syncope, fever, or chills. Her troponin was elevated, and I was consulted. Past Medical History: Includes end-stage renal disease, on hemodialysis; history of CVA; dementia; T IA; hypothyroidism; hypertension; diabetes; dyslipidemia. Allergies: INCLUDE CODEINE. Review of Systems: Negative. Social History: Negative. Family History: Negative. Medications: Listed by Dr. Dempsey. Physical Examination: Vital Signs: Stable. Afebrile, sinus rhythm. HEENT: Negative. Neck: Supple. No bruit. Chest: Clear. Cardiac: Revealed a regular rhythm and rate with S4 gallops. Abdomen: Benign. Extremities: Revealed no clubbing, cyanosis, or edema. Diagnostic Data: EKG is nonspecific. Chest x-ray shows positive COVID. Creatinine is 3.69. Her BN P was . Troponin was 8. Impression And Plan: Elevated troponin and BNP secondary to renal failure, diarrhea, hypokalemia, de flaco ischemia. This is not an acute coronary syndrome. Echocardiogram is pending. Nephrology is in volved in the case. We will see what her echocardiogram shows. If her echocardiogram shows wall mot ion abnormalities, we will consider a heart catheterization. For now, we will continue her present r egimen. She has a history of cerebrovascular accident, dementia, transient ischemic attack, hypothyr oidism, hypertension, diabetes, dyslipidemia, all of which are controlled. She is to have her diarrh ea investigated. She is to have her dialysis as usual. We will check her echo first before making f urther decisions. Continue present regimen otherwise. Case was discussed with Dr. Dempsey. ROSALIE/CONCEPCION Voice ID: [id number] Report ID: [id number]
--- NOTE | 2021-03-04 16:19 | P.PN ---
Subjective Date of Service: 03/04/21 Chief Complaint: NSTEMI Subjective: Improving (Patient refused medications last night and again this morning. At times she gets very agitated. She answers a few questions and then refused to answer any further questions. Purposely ignoring me. Denies any miguel rrhea, nursing staff confirm.) Review of Systems is unable to be obtained Physical Examination - Vital Signs Temperature: 98.4 F Blood Pressure: 142/62 Pulse: 67 Respirations: 16 Pulse Ox (%): 98 - Studies Microbiology Data (last 24 hrs): 03/01/21 20:20 Stool Culture & Sensitivity - Final Assessment & Plan Physician Review Additional Text: Physical Exam Gen: NAD, stares blankly at me, cachectic appearing HEENT: normal conjunctiva, sclera anicteric Pulm: nonlabored on room air CV: regular rate/rhythm, no edema Abd: soft, NTND MSK: no joint swelling/tenderness Problem List Diarrhea secondary to colitis vs COVID-19 NSTEMI COVID-19+ Dementia ESRD on HD Diabetes mellitus type 2, insulin- dependent Hypertension Hyperlipidemia Hypothyroidism, chronic Anemia in chronic disease Chronic Diastolic CHF Patient still not wanting answer my questions States she feels okay, denies diarrhea trop trended down, cardiology consulted, likely secondary to reduced renal clearance, no further intervention recommended at this time Echo: mod-severe TR, severe D-CHF -worsened compared to echo in 2019 Hypoglycemia improved, better p.o. intake continue cipro/flagyl for diarrhea/colitis nephrology consulted for HD continue D5 1/2NS for hypoglycemia, encourage PO intake Awaiting stool for C. diff and other stool studies. -Highly doubt C. difficile, patient without diarrhea now Physical therapy consulted Dispo: Had a long discussion with patient's granddaughter, who thinks it may be best for patient to go somewhere for long-term placement. She states she does not believe her mother (medical POA), can adequately take care of the patient. The patient's brother came from out of town to assist, however patient was already hospitalized upon his arrival. Patient with dementia, alert and oriented x1 for the most part while hospitalized. Granddaughter states she can be intermittently better at times. Time Spent Managing Pts Care (In Minutes): 40
[2021-03-04] MEDS ORDERED: D5 0.45 NS 1,000 ML IV SCH (16:20)
[2021-03-04] MEDS: NEPRO SHAKE 237 ML CAN PO SCH (20:44)
[2021-03-04] MEDS: ATORVASTATIN 40 MG TAB PO SCH (20:44)
[2021-03-04] MEDS ORDERED: NEPRO SHAKE 237 ML CAN PO SCH (21:00)
--- NOTE | 2021-03-04 22:23 | P.CNS ---
Date of Consult: 03/03/21 Chief Complaint: NSTEMI History of Present Illness: Pt is a 81 y/o female with past medical hx of hypertension,dementia, esrd on hd tts presenting with concerns for diarrhea. Pt also noted to have nstemi and foudn to be covid positive Pt therefore admitted for these issues. Renalhas been consulted for hemodialysis needs Allergies codeine Allergy (Intermediate, Verified 04/27/20 00:35) Itching/Hives/Rash - Past Medical/Surgical History Diabetic: Yes -: HTN,IDDM,CVA -: kidney failure -: PNE -: hx of left lower leg wound-healed -: ESRD on HD -: HLD -: LEFT EYE CATARACT -: HYPOTHYROIDISM -: HD ACCESS -left upper chest -: BROKEN HIP -: anemia -: HD ACCESS PLACEMENT -: hip replacement Psychosocial/ Personal History: Patient lives with her daughter - Family History Mother History Unknown: Yes Medical History: Heart disease - Social History Smoking Status: Unknown if ever smoked Alcohol use: No CD- Drugs: No Caffeine use: No Place of Residence: Home Physical Examination Temp Pulse Resp BP Pulse Ox 96.5 F L 63 20 156/56 H 98 03/04/21 20:00 03/04/21 20:00 03/04/21 20:00 03/04/21 20:00 03/04/21 20:00 General: Alert, In no apparent distress, Demented HEENT: Atraumatic, PERRLA, Mucous membr. moist/pink, EOMI, Sclerae nonicteric Neck: Supple, 2+ carotid pulse no bruit, No LAD, Without JVD or thyroid abnormality Respiratory: Clear to auscultation bilaterally, Normal air movement Cardiovascular: Regular rate/rhythm, Normal S1 S2 Gastrointestinal: Normal bowel sounds, No tenderness Musculoskeletal: No tenderness Integumentary: No rashes Neurological: Normal gait, Normal speech, Normal tone, Normal affect Lymphatics: No axilla or inguinal lymphadenopathy Physician Review Additional Text: Problems ESRD TTS Hypertension Diarrhea COVID postive syndrome Plan Will dialyze today fro volume controla dn clearance Renal diet 1L fluid restriction Continue blood pressure medication Other rmanagement per primary team Will continue to follow.
[2021-03-05] MEDS: METRONIDAZOLE 500mg IVPB 500 MG/100 ML BAG IV SCH ×3 (00:24→17:08)
[2021-03-05 01:25] VITALS: BMI 21.0
[2021-03-05 05:43] LABS: Hematocrit 39.6 % (36.0-45.0); MPV 9.6 fL (7.6-11.3); RBC Red Blood Cell Count 4.38 M/uL (3.86-4.86)
[2021-03-05] MEDS: METOPROLOL TAR 25 MG TAB PO SCH ×2 (06:00→17:13)
[2021-03-05 06:03] LABS: Albumin 2.8 g/dL (3.4-5.0); Bilirubin Total 0.3 mg/dL (0.2-1.0); C-Reactive Protein 14.2 mg/L (<3.00); Ferritin 1601.6 ng/mL (8-388); Magnesium 1.8 mg/dL (1.8-2.4); Potassium 3.3 mmol/L (3.5-5.1); Protein, Total 6.6 g/dL (6.4-8.2)
[2021-03-05] MEDS: NEPRO SHAKE 237 ML CAN PO SCH ×2 (09:00→21:00)
[2021-03-05] MEDS: HYDRALAZINE HCL 25 MG TABLET PO SCH ×3 (10:15→20:59)
[2021-03-05] MEDS: ASPIRIN EC 81 MG TAB PO SCH (10:15)
[2021-03-05] MEDS: CIPROFLOXACIN 400mg IV 400 MG/200 ML BAG IV SCH (10:20)
--- NOTE | 2021-03-05 11:23 | P.PN ---
Subjective Date of Service: 03/05/21 Chief Complaint: NSTEMI Physical Examination - Vital Signs Temperature: 97.5 F Blood Pressure: 154/76 Pulse: 88 Respirations: 20 Pulse Ox (%): 98 - Studies Microbiology Data (last 24 hrs): 03/01/21 20:20 Stool Culture & Sensitivity - Final Assessment & Plan Physician Review Additional Text: Physical Exam Gen: NAD, stares blankly at me, cachectic appearing HEENT: normal conjunctiva, sclera anicteric Pulm: nonlabored on room air CV: regular rate/rhythm, no edema Abd: soft, NTND MSK: no joint swelling/tenderness Problem List Diarrhea secondary to colitis vs COVID-19 NSTEMI COVID-19+ Dementia ESRD on HD Diabetes mellitus type 2, insulin- dependent Hypertension Hyperlipidemia Hypothyroidism, chronic Anemia in chronic disease Chronic Diastolic CHF Patient still not wanting answer my questions States she feels okay, denies diarrhea trop trended down, cardiology consulted, likely secondary to reduced renal clearance, no further intervention recommended at this time Echo: mod-severe TR, severe D-CHF -worsened compared to echo in 2019 Hypoglycemia improved, better p.o. intake continue cipro/flagyl for diarrhea/colitis nephrology consulted for HD continue D5 1/2NS for hypoglycemia, encourage PO intake Awaiting stool for C. diff and other stool studies. -Highly doubt C. difficile, patient without diarrhea now Physical therapy consulted Dispo: Had a long discussion with patient's granddaughter, who thinks it may be best for patient to go somewhere for long-term placement. She states she does not believe her mother (medical POA), can adequately take care of the patient. The patient's brother came from out of town to assist, however patient was already hospitalized upon his arrival. Patient with dementia, alert and oriented x1 for the most part while hospit alized. Granddaughter states she can be intermittently better at times.
[2021-03-05] MEDS: HYDRALAZINE HCL 20 MG/ML VIAL IV PRN (12:43)
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
[2021-03-05] MEDS: ATORVASTATIN 40 MG TAB PO SCH (20:59)
[2021-03-05 22:51] VITALS: O2SAT 98
[2021-03-06] MEDS: METRONIDAZOLE 500mg IVPB 500 MG/100 ML BAG IV SCH ×2 (01:49→09:43)
[2021-03-06] MEDS: METOPROLOL TAR 25 MG TAB PO SCH (05:12)
[2021-03-06] MEDS: HYDRALAZINE HCL 20 MG/ML VIAL IV PRN (05:13)
[2021-03-06] MEDS: NEPRO SHAKE 237 ML CAN PO SCH (09:00)
[2021-03-06] MEDS: HYDRALAZINE HCL 25 MG TABLET PO SCH ×3 (09:45→13:25)
[2021-03-06] MEDS: ASPIRIN EC 81 MG TAB PO SCH (09:45)
[2021-03-06] MEDS: CIPROFLOXACIN 400mg IV 400 MG/200 ML BAG IV SCH (13:02)
[2021-03-06 13:47] LABS: Hematocrit 33.8 % (36.0-45.0); MPV 9.5 fL (7.6-11.3); RBC Red Blood Cell Count 3.81 M/uL (3.86-4.86)
[2021-03-06 14:53] LABS: Albumin 2.5 g/dL (3.4-5.0); Bilirubin Total 0.3 mg/dL (0.2-1.0); C-Reactive Protein 33.9 mg/L (<3.00); Magnesium 1.9 mg/dL (1.8-2.4); Potassium 3.2 mmol/L (3.5-5.1); Protein, Total 6.1 g/dL (6.4-8.2)
--- NOTE | 2021-03-06 16:22 | PN ---
Date of Progress Note: 03/03/2021 Subjective: Ms. Garcia was initially seen because of elevated troponin, no chest pain, hypokalemia . Echocardiogram showed mild ejection fraction reduction at 40% to 45%, anteroseptal apical hypokine sis, severe mitral regurgitation, severe diastolic dysfunction, severe pulmonary hypertension. Never theless, I still do not think we are dealing with an acute coronary syndrome. I think she needs to b e treated medically with Lipitor. She is on hydralazine. She is on metoprolol. I think the hydrala zine dose is appropriate considering her pulmonary hypertension. I will keep her potassium corrected with hemodialysis as is being done. Her last creatinine is 3.46. Last potassium is 3.3. She needs to follow up as an outpatient in the near future. No further cardiac workup at this point. It woul d not be unreasonable for Ms. Garcia to have a heart catheterization sometime down the road. ROSALIE/CONCEPCION Voice ID: [id number] Report ID: [id number]
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
[2021-03-06 17:41] VITALS: BP 152/69; TEMP 97.8
== END 2021-03-06 16:31 | disposition home health service (06) | DRG 177 ==
LOC: ER 19:34 → ERHOLD 03-02 00:44 → 4TH 03-02 12:44
PROVIDERS: ADMIT Internal Medicine; ATTEND Internal Medicine
PROC: 5A1D70Z Performance of Urinary Filtration, Intermittent, Less than 6 Hours Per Day (ICD-10-PCS; principal; 2021-03-03)
PROC: 5A1D70Z Performance of Urinary Filtration, Intermittent, Less than 6 Hours Per Day (ICD-10-PCS; 2021-03-05)
DX: U07.1 COVID-19 (principal); N18.6 End stage renal disease; I21.A1 Myocardial infarction type 2; I13.2 Hypertensive heart and chronic kidney disease with heart failure and with stage 5 chronic kidney disease, or end stage renal disease; I50.32 Chronic diastolic (congestive) heart failure; A09 Infectious gastroenteritis and colitis, unspecified; F03.90 Unspecified dementia, unspecified severity, without behavioral disturbance, psychotic disturbance, mood disturbance, and anxiety; E03.9 Hypothyroidism, unspecified; E87.6 Hypokalemia; D63.1 Anemia in chronic kidney disease; E11.22 Type 2 diabetes mellitus with diabetic chronic kidney disease; E78.5 Hyperlipidemia, unspecified; Z99.2 Dependence on renal dialysis; Z86.73 Personal history of transient ischemic attack (TIA), and cerebral infarction without residual deficits; Z96.649 Presence of unspecified artificial hip joint
CPT/HCPCS: 36415; 71045; 80048; 80053; 80061; 80076; 82728; 82947; 83690; 83735; 83880; 84100; 84145; 84439; 84443; 84484; 85025; 85027; 85610; 85730; 86140; 87045; 87046; 90935; 93005; 93306; 94760; 94762; 96361; 96374; 96375; 97161; 97530; 99284; J0360; J0744; J1644; J3480; J7050; J7799; U0003

== ENCOUNTER 2021-05-02 00:07 | Emergency (ER) | payer OTHER ==
[2021-05-02] MEDS ORDERED: NALOXONE HCL 2 MG/2 ML VIAL IM ONE (00:08)
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
--- NOTE | 2021-05-02 00:32 | ER ---
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 00:02 Care prior to arrival: Oral intubation, CPR performed by EMS and is still in progress lp1 IV initiated. 18 GA, in the left antecubital area, Glucose check: 144 Oxygen administered. via AMBU bag. Compressions began prior to arrival. 00:02 Method Of Arrival: EMS: [facility] lp1 00:02 Acuity: JOSE 1 lp1 00:03 Care prior to arrival: Intubated with 7.0 ETT, 22 at the teeth. lp1 00:05 Risk Assessment: Do you want to hurt yourself or someone else? Unable to obtain. lp1 00:40 Note [facility] contacted talked with [place]. pt not a candidate for organ donation due kc4 to dementia, height and weight. Case # [id number]. 00:59 Note Officer [place]hat [place] [employer] at . kc4 01:17 Note Per Officer Rahat Oneal. Chip Crusher Operator Abhishek Daniel declined for an autopsy. kc4 04:56 Note Rep. 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 kc4 Historical: - Allergies: 00:38 Codeine; lp1 00:38 Lisinopril; lp1 00:38 Tramadol HCl; lp1 - Home Meds: 00:41 Unable to obtain [Active]; lp1 - PMHx: 00:39 Chronic Kidney disease; Dialysis; CVA; Dementia; TIA; Hypothyroidism; HTN; Diabetes lp1 mellitus; HLD; - PSHx: 00:41 Unable to Obtain; lp1 - Social history:: Smoking status: unknown. Assessment: 00:04 Cardiac rhythm is VTach; Shock administered. lp1 00:05 CPR assessment: unresponsive, pupils fixed \T\ dilated, no respiratory effort, intubated, lp1 Ambu ventilation. 00:07 Cardiac rhythm is VTach; Shock administered. lp1 00:09 Cardiac rhythm is VTach; Shock administered. lp1 00:10 Cardiac rhythm is PEA. lp1 00:46 Reassessment: [place] [employer] at bedside. em Vital Signs: 00:03 Pulse Ox 100% on 15 lpm ETT ambu; lp1 [place] Coma Score: 00:06 Eye Response: none(1). Verbal Response: none(1). Motor Response: none(1). Modifying lp1 Factors: Intubated. Total: 3. ED Course: 00:03 Patient has correct armband on for positive identification. nurse monitoring on. Pulse lp1 ox on. NIBP on. 00:08 Patient arrived in ED. mw2 00:17 Hiram Mujica MD is Attending Physician. pkl 00:22 Triage completed. lp1 00:24 Police called [place] [employer] to have an officer call out die drawing checker for patient. mw2 00:29 Hiram Mujica MD is Pronouncing Provider. pkl Administered Medications: 00:06 Drug: EPINEPHrine 0.1mg/mL 1:10,000 1 mg Route: IVP; Site: left antecubital; lp1 00:30 Follow up: Response: No change in condition lp1 00:07 Drug: Sodium Bicarbonate 1 amp Route: IVP; Site: left antecubital; lp1 00:30 Follow up: Response: No change in condition lp1 00:08 Drug: EPINEPHrine 0.1mg/mL 1:10,000 1 mg Route: IVP; Site: left antecubital; lp1 00:30 Follow up: Response: No change in condition lp1 00:10 Drug: EPINEPHrine 0.1mg/mL 1:10,000 1 mg Route: IVP; Site: left antecubital; lp1 00:30 Follow up: Response: No change in condition lp1 Point of Care Testing: Blood Glucose: 00:06 Blood Glucose: 172 mg/dL; lp1 Ranges: Outcome: 00:15 Outcome Patient lp1 00:15 Patient : Time of 00:15 Pronounced by Hiram Mujica MD lp1 00:15 Condition: 04:52 Patient left the ED. df1 Signatures: Hiram Mujica MD MD pkl Munoz, Edgar, RN RN Deja Amato RN RN lp1 Cabrera, Miriam mw2 Mariola Ch kc4 Cindy Acuña df1 Corrections: (The following items were deleted from the chart) 00:50 00:47 Note [facility] contacted. pt not a candidate for organ donation. [place]ster kc4
--- OUTSIDE RECORDS SUMMARY | 2021-05-02 23:28 | XMS REPORT | Continuity of Care Document ---
:1940 Author Organization [facility] t Address [address] [place] [address] Care Team Providers Name Role Phone Viktoria Forbes MD Primary Care Physician Viktoria Forbes MD Attending Clinician Alvino HENDRICKS Attending Clinician Unavailable LUKE HUERTAS Attending Clinician Unavailable MARQUITA ABRAHAM Admitting Clinician Unavailable Payers Payer Name Policy [...] Cent er Closed Closed Disease Active Overview: Method i fracture fracture 3-[address] of left of left 00:00: g of this Hospi ta hip hip 00 note l might be different from the original. Added automatic ally from request for surgery [id number] Gastrointe Gastrointe Disease Active M ethodi stinal stinal 2-23 st bleed bleed 00:00: Hospita 00 l Acute Acute Disease Active Methodi pulmonary pulmonary 2-18 st edema edema 00:00: Hospita 00 l Hematoma Hematoma Disease Active Metho di of groin of groin 03-07 st 00:00: Hospita 00 l PAD PAD Disease Active Overview: Method i (periphera (periphera [address] l artery l artery 00:00: g of this Hos ruddy disease) disease) 00 note l might be different from the original. Added automatic ally from request for surgery [id number] st Assessmen t & Plan: Formattin g of this note might be different from the original. Improved symptoms. Continue medical optimizat ion. Continue cilostazo l. Follow-up in 6 months with ABIs and TBI's. PVD PVD Disease Active Methodi (periphera (periphera 4 st l vascular l vascular 00:00: Ho [...] l ESRD (end ESRD (end Disease Active stage stage [facility] - renal renal Medical [...] adverse 00:00: Medical reaction 00 Center s CODEINE Allergy Active [facility] TRAMADOL Allergy Active [facility] Family History Family Member Diagnosis Comments Start Date Stop Date Source Natural father Heart disease [facility] Natural mother Stroke [facility] Social History Social Habit Start Date Stop Date Quantity Comments Source History of Smoker Denominational tobacco use Hospital Tobacco use and 2019-09-10 2019-09-10 Never used Denominational exposure 00:00:00 00:00:00 Hospital Alcohol intake 2019-09-10 2019-09-10 Current Denominational 00:00:00 00:00:00 non-drinker of Hospital alcohol (finding) Tobacco Comment 2017-02-25 2017-02-25 socially Denominational 00:00:00 00:00:00 Hospital Sex Ass[birth year] At [birth year] Denominational 00:00:00 00:00:00 Hospital Smoking Status Start Date Stop Date Source Former smoker 2019-09-10 00:00:00 2019-09[facility] Or[facility] Filled Start Stop Current Ordering Indication Dosage Frequency Signature Comments Components Source Medication Medication Date Date Medication? Clinician (SIG) Name Name hydrALAZINE 2019-06- No [id number] 25mg Q.[id number] Take 1 Methodi (APRESOLINE 06-24 [id number] tablet (25 st ) 25 MG 00:00: 04:59 3D mg total) Hosp matilde tablet 00 :00 by mouth 3 l (three) times a day. aspirin Yes 81mg QD Take 81 mg Meth nery (ECOTRIN) [address] 81 MG 16:23: daily. Hospita enteric 33 l coated tablet latanoprost Yes 1[drp] QD Administer Methodi (XALATAN) 01-[address] 0.005 % 16:23: both eyes Hospi ta ophthalmic 33 nightly. l solution clotrimazol 2020- No [id number] Q.5D Apply Methodi e-betametha 01-03 07-[address] sone 00:00: 04:59 2 (two) Hospita (Lotrisone) 00 :00 times a l 1-0.05 % day. cream levothyroxi Yes [id number] 50ug QD Take 1 Methodi ne 4-28 tablet (50 st (SYNTHROID) 00:00: mcg total) Hospita 50 mcg 00 by mouth l tablet daily. pentoxifyll 2020-0 Yes [id number] TAKE 1 Methodi ine 4-[address] (TRENTal) 00:00: MOUTH Hospita 400 mg CR 00 TWICE A l tablet DAY blood sugar 2020-0 Yes [id number] Use one Methodi diagnostic 4-20 test strip [...] packet days. hydrALAZINE 2020-0 Yes hypertensio 25mg Q.[id number] Take [address] [facility] [address] (APRESOLINE 4-15 n [id number] by mouth 3 [facility] - ) 25 [...] as needed for Pain. lancets 2019-0 Yes [id number] Use one Met hodi mis 3-[address] 00:00: times a Hospita 00 day for l glucose blood-gluco 2020-0 Yes [id number] Use to Methodi se meter 3-[address] misc 00:00: blood Hospita 00 glucose l twice daily blood-gluco 2020-0 2020- No [id number] Use as Methodi se meter 309 03-[address] kit 00:00: 05:59 Hospita 00 :00 l miscellaneo 2018-1 Yes [id number] Use to Methodi medical 2-[address] supply 00:00: blood Hospita (BLOOD 00 pressure l PRESSURE twice CUFF) mis daily Immunizations Ordered Immunization Filled Immunization Date Status Commen ts Source Name Name Pneumococcal 2018-05-31 Completed Denominational Conjugate 13-Valent 00:00:00 Hospi brooke FLUZONE HIGH-DOSE [...] 00:00:00 [facility] (procedure) [code = 55156529] Future Scheduled 2007 PNEUMOCOCCAL 65+ YRS [facility] [...] [facility] ter VACCINE (1)] Future Scheduled 1952-01-[address] DIABETIC EYE EXAM [facility] 00:00:00 [code = DIABETIC EYE Medical [facility] EXAM] Future Scheduled 1950-01-12 Urine screening for [facility] Test 00:00:00 protein (procedure) Medical Center [code = 073324014] Future Scheduled COVID-19 VACCINE (1) Met [facility] Test [code = COVID-19 VACCINE (1)] Future Scheduled SHINGLES [facility]ACCINES (#[facility]) [facility] [code = SHINGLES VACCINES (#1)] Future Scheduled 65+ [facility]UMOCOCCAL [facility] Test VACCINE (2 of 4 - PPSV23) [code = 65+ PNEUMOCOCCAL VACCINE (2 of 4 - PPSV23)] Future Scheduled DIABETIC FOOT EX[facility] Test [code = DIABETIC FOOT EXAM] Future Scheduled URINE [facility]ALBUMIN [facility] Test [code = URINE MICROALBUMIN] Future Scheduled DIABETES: RETINAL EYE Me [facility] Hospital Test EXAM [code = DIABETES: RETINAL EYE EXAM] Future Scheduled INFLUENZA VACCINE [facility] Test [code = INFLUENZA VACCINE] Encounters Start End Encounter Admission Attending Care Care Encounter Source Date/Time Date/Time Type Type Clinicians Facility Department ID 2019-09-25 Inpatient [facility] [id number] [facility] 19:43:00 [id number] 2020-12-25 2020-12-25 Refill Forbes, 1.2.840.1 [id number] 2099 [id number] Methodi 00:00:00 00:00:00 Srinivasan Blum [address] 3.430.2.7 Hospit a .3.478717 l .8 2020-06-16 2020-06-16 Telephone De Oliveira, 1.2.840.1 [id number] 2099 [id number] Methodi 00:00:00 00:00:[address] 3.430.2.7 Hospit a .3.745886 l .8 2020-05-07 2020-05-07 Refill Forbes, 1.2.840.1 [id number] 2099 [id number] Methodi 00:00:00 00:00:00 Srinivasan Blum [address] 3.430.2.7 Hospit a .3.300492 l .8 2020-04-24 2020-04-24 Orders Forbes, 1.2.840.1 [id number] 2099 [id number] Methodi 00:00:00 00:00:00 Only Srinivasan Blum 48726.1.[address] 3.430.2.7 Hospit a .3.717777 l .8 2020-04-24 2020-04-24 Orders Forbes, 1.2.840.1 [id number] 2099 [id number] Methodi 00:00:00 00:00:00 Only Srinivasan Blum 48951.1.[address] 3.430.2.7 Hospit a .3.710088 l .8 Results Test Description Test Time Test Comments Results Result Comments Source POCT-GLUCOSE METER 2019-10-03 16:59:00 Test Item Value Reference Range Interpretation Comme anna POC-GLUCOSE METER (BEAKER) 81 mg/dL 70-110 : TESTED AT [facility] [address] [facility] (test code = 1538) [facility] X, [address]: Ingot Stripper/Techni jamey ID = [id number] for QUEEN MURILLO POCT-GLUCOSE [id number] 11:50:00 Test Item Value Reference Range Interpretation Comments POC-GLUCOSE METER 123 mg/dL 70-110 H : TESTED A T [facility] (BEAKER) (test code = [facility], 1538) 23802: Ingot Stripper/Techni jamey ID = [id number] for QUEEN BECKER POCT-GLUCOSE [id number] 11:07:00 Test Item Value Reference Range Interpretation Comments POC-GLUCOSE METER 127 mg/dL 70-110 H : [facility] (BE[facility]ER[facility] (test code = [facility], 1538) 71495: Ingot Stripper/Techni jamey ID = [id number] for So dexter, Thomas POCT-GLUCOSE [id number] 08:22:00 Test Item Value Reference Range Interpretation Comments POC-GLUCOSE METER 78 mg/dL 70-110 : TESTED A T [facility] (BEAKER) (test code = [facility], 1538) 55858: Ingot Stripper/Techni jamey ID = [id number] for Imani ano, Thomas POCT-GLUCOSE [id number] 07:54:00 Test Item Value Reference Range Interpretation Comments POC-GLUCOSE METER 69 mg/dL 70-110 L : TESTED A T [facility] (BEAKER) (test code = [facility], 1538) 03740: Ingot Stripper/Techni jamey ID = [id number] for QUEEN KNOX BASIC METABOLIC [id number] 07:05:00 Test Item Value Reference Range Interpretation [...] S NOT APPLICABLE FOR DIALYSIS PATIEN TS. Ingot Stripper ID - PIAYA LCBC W/PLT COUNT & AUTO [id number] 06:42:00 Test Item Value Reference Range Interpretation [...] PERCENT (BEAKER) (test code = 2801) POCT-GLUCOSE [id number] 21:29:00 Test Item Value Reference Range Interpretation Comments POC-GLUCOSE METER 95 mg/dL 70-110 : TESTED A T [facility] 6720 (BEAKER) (test code = TATIANA Figueroa [facility], 1538) 29185: Ingot Stripper/Techni jamey ID = [id number] for MERLE MILLER BASIC METABOLIC [id number] 17:44:00 Test Item Value Reference Range Interpretation [...] S NOT APPLICABLE FOR DIALYSIS PATIEN TS. Ingot Stripper ID - BSPOCT-GLUCOSE [id number] 17:42:00 Test Item Value Reference Range Interpretation Comments POC-GLUCOSE METER 96 mg/dL 70-110 : TESTED A T [facility] (BEAKER) (test code = [place] SANCHE[place], 1538) 604[address]: Ingot Stripper/Techni jamey ID = [id number] for DERIK PEDRO CBC W/PLT COUNT & AUTO [id number] 17:37:00 Test Item Value Reference Range Interpretation [...] PERCENT (BEAKER) (test code = 2801) POCT-GLUCOSE [id number] 13:09:00 Test Item Value Reference Range Interpretation Comments POC-GLUCOSE METER 72 mg/dL 70-110 : TESTED A T [facility] 6720 (BEAKER) (test code = [facility], [facility]) 48856: Ingot Stripper/Techni jamey ID = [id number] for WILL IS, GORGE POCT-GLUCOSE [id number] 08:42:00 Test Item Value Reference Range Interpretation Comments POC-GLUCOSE METER 87 mg/dL 70-110 : TESTED A T [facility] 6720 (BEAKER) (test code = [facility], [facility]) 97929: Ingot Stripper/Techni jamey ID = [id number] for WILL IS, GORGE POCT-GLUCOSE [id number] 21:42:00 Test Item Value Reference Range Interpretation Comments POC-GLUCOSE METER 94 mg/dL 70-110 : TESTED A T [facility] 6720 (BEAKER) (test code = [facility], [facility]) 69408: Ingot Stripper/Techni jamey ID = [id number] for ANGELA , SAUDATU POCT-GLUCOSE [id number] 21:33:00 Test Item Value Reference Range Interpretation Comments POC-GLUCOSE METER 84 mg/dL 70-110 : TESTED A T [facility] 6720 (BEAKER) (test code = [facility], [facility]) 58578: Ingot Stripper/Techni jamey ID = [id number] for ALEKS SODETTEABI POCT-GLUCOSE [id number] 12:49:00 Test Item Value Reference Range Interpretation Comments POC-GLUCOSE METER 139 mg/dL 70-110 H : TESTED A T [facility] 6720 (BEAKER) (test code = [facility], 153) 85066: Ingot Stripper/Techni jamey ID = [id number] for ABI SALAZAR POCT-GLUCOSE [id number] 10:22:00 Test Item Value Reference Range Interpretation Comments POC-GLUCOSE METER 96 mg/dL 70-110 : TESTED A T [facility] 6720 (BEAKER) (test code = [facility], 153) 43813: Ingot Stripper/Techni jamey ID = [id number] for Dayna Meadows POCT-GLUCOSE [id number] 08:42:00 Test Item Value Reference Range Interpretation Comments POC-GLUCOSE METER 94 mg/dL 70-110 : TESTED A T [facility] 6720 (BEAKER) (test code = [facility], 153) 98351: Ingot Stripper/Techni jamey ID = [id number] for ABI ESTES BLOOD [id number] 05:00:00 Test Item Value Reference Range Interpretation Comments CULTURE (BEAKER) (test No growth in 5 days code = 1095) POCT-GLUCOSE [id number] 21:02:00 Test Item Value Reference Range Interpretation Comments POC-GLUCOSE METER 117 mg/dL 70-110 H : TESTED A T [facility] 6720 (BEAKER) (test code = [facility], 153) 06303: Ingot Stripper/Techni jamey ID = [id number] for NORMBLAIRE POCT-GLUCOSE [id number] 16:26:00 Test Item Value Reference Range Interpretation Comments POC-GLUCOSE METER 121 mg/dL 70-110 H : TESTED A T [facility] 6720 (BEAKER) (test code = [facility], 153) 26450: Ingot Stripper/Techni jamey ID = [id number] for DERIK ALEXANDRA POCT-GLUCOSE [id number] 12:02:00 Test Item Value Reference Range Interpretation Comments POC-GLUCOSE METER 183 mg/dL 70-110 H : TESTED A T [facility] 6720 (BEAKER) (test code = [facility], 153) 85558: Ingot Stripper/Techni jamey ID = [id number] for DERIK ALEXANDRA POCT-GLUCOSE [id number] 07:57:00 Test Item Value Reference Range Interpretation Comments POC-GLUCOSE METER 113 mg/dL 70-110 H : TESTED A T [facility] 6720 (BEAKER) (test code = [place], 1538) 7[address]: Ingot Stripper/Techni jamey ID = [id number] for DERIK ALEXANDRA BASIC METABOLIC [id number] 05:44:00 Test Item Value Reference Range Interpretation [...] S NOT APPLICABLE FOR DIALYSIS PATIEN TS. Ingot Stripper ID - PIAYA LCBC W/PLT COUNT & AUTO [id number] 05:08:00 Test Item Value Reference Range Interpretation [...] PERCENT (BEAKER) (test code = 2801) POCT-GLUCOSE [id number] 20:17:00 Test Item Value Reference Range Interpretation Comments POC-GLUCOSE METER 164 mg/dL 70-110 H : TESTED A T [facility] 6720 (BEAKER) (test code = [place], 1538) 22960: Ingot Stripper/Techni jamey ID = [id number] for [place] LMORE, ALYSIA HEMOGLOBIN AND [id number] 18:31:00 Test Item Value Reference Range Interpretation Comments HEMOGLOBIN (BEAKER) (test code = 8.5 GM/DL 11.2-15.7 L 410) HEMATOCRIT (BEAKER) (test code = 26.9 % 34.1-44.9 L 411) Ingot Stripper ID - 6000POCT-GLUCOSE [id number] 16:55:00 Test Item Value Reference Range Interpretation Comments POC-GLUCOSE METER 175 mg/dL 70-110 H : TESTED A T [facility] 6720 (BEAKER) (test code = [facility], [facility]) 62804: Ingot Stripper/Techni jamey ID = [id number] for REKHA ASHLEY, ABI POCT-GLUCOSE [id number] 12:00:00 Test Item Value Reference Range Interpretation Comments POC-GLUCOSE METER 188 mg/dL 70-110 H : TESTED A T [facility] 6720 (BEAKER) (test code = [facility], [facility]) 20866: Ingot Stripper/Techni jamey ID = [id number] for REKHA ASHLEY, ABI POCT-GLUCOSE [id number] 08:10:00 Test Item Value Reference Range Interpretation Comments POC-GLUCOSE METER 98 mg/dL 70-110 : TESTED A T [facility] 6720 (BEAKER) (test code = [facility], [facility]) 37457: Ingot Stripper/Techni jamey ID = [id number] for ALEKS S, ABI POCT-GLUCOSE [id number] 20:30:00 Test Item Value Reference Range Interpretation Comments POC-GLUCOSE METER 136 mg/dL 70-110 H : TESTED A T [facility] 6720 (BEAKER) (test code = [facility], [facility]) 93580: Ingot Stripper/Techni jamey ID = [id number] for [place] LMORE, ALYSIA POCT-GLUCOSE [id number] 17:08:00 Test Item Value Reference Range Interpretation Comments POC-GLUCOSE METER 157 mg/dL 70-110 H : TESTED A T [facility] 6720 (BEAKER) (test code = [facility], [facility]) 29207: Ingot Stripper/Techni jamey ID = [id number] for BU RKS, ANIL POCT-GLUCOSE [id number] 11:35:00 Test Item Value Reference Range Interpretation Comments POC-GLUCOSE METER 97 mg/dL 70-110 : TESTED A T [facility] 6720 (BEAKER) (test code = [facility], 1538) 71850: Ingot Stripper/Techni jamey ID = [id number] for ANIL POON HEPATIC FUNCTION [id number] 05:17:00 Test Item Value Reference Range Interpretation [...] code = < U/L 6-55 L 347) Ingot Stripper ID - MARCELO WBASIC METABOLIC [id number] 05:13:00 Test Item Value Reference Range Interpretation [...] S NOT APPLICABLE FOR DIALYSIS PATIEN TS. Ingot Stripper ID - MARCELO WPROTHROMBIN [id number] 04:50:00 Test Item Value Reference Range Interpretation [...] mechanical heart valves.CBC W/PLT COUNT & AUTO [id number] 04:32:00 Test Item Value Reference Range Interpretation [...] PERCENT (BEAKER) (test code = 2801) POCT-GLUCOSE [id number] 21:55:00 Test Item Value Reference Range Interpretation Comments POC-GLUCOSE METER 76 mg/dL 70-110 : TESTED A T [facility] 6720 (BEAKER) (test code = [facility], [facility]) 10816: Ingot Stripper/Techni jamey ID = [id number] for SIMON GERONIMO ANA POCT-GLUCOSE [id number] 17:42:00 Test Item Value Reference Range Interpretation Comments POC-GLUCOSE METER 91 mg/dL 70-110 : TESTED A T [facility] 6720 (BEAKER) (test code = [facility], [facility]) 17530: Ingot Stripper/Techni jamey ID = [id number] for KIRSTIE MCCABE, DERIK POCT-GLUCOSE [id number] 12:44:00 Test Item Value Reference Range Interpretation Comments POC-GLUCOSE METER 81 mg/dL 70-110 : TESTED A T [facility] 6720 (BEAKER) (test code = [facility], [facility]) 94043: Ingot Stripper/Techni jamey ID = [id number] for HEAR NE, DERIK POCT-GLUCOSE [id number] 08:13:00 Test Item Value Reference Range Interpretation Comments POC-GLUCOSE METER 81 mg/dL 70-110 : TESTED A T [facility] 6720 (BEAKER) (test code = [facility], [facility]) 86822: Ingot Stripper/Techni jamey ID = [id number] for HEAR NE, DERIK BASIC METABOLIC [id number] 05:48:00 Test Item Value Reference Range Interpretation [...] S NOT APPLICABLE FOR DIALYSIS PATIEN TS. Ingot Stripper ID - JB LHEPATIC FUNCTION [id number] 05:48:00 Test Item Value Reference Range Interpretation [...] code = < U/L 6-55 L 347) Ingot Stripper ID - JB [id number] 05:47:00 Test Item Value Reference Range Interpretation Comments PHOSPHORUS (BEAKER) (test code = 2.6 mg/dL 2.3-4.7 604) Ingot Stripper ID - JB LPROTHROMBIN [id number] 05:20:00 Test Item Value Reference Range Interpretation [...] mechanical heart valves.CBC W/PLT COUNT & AUTO [id number] 05:11:00 Test Item Value Reference Range Interpretation [...] PERCENT (BEAKER) (test code = 2801) POCT-GLUCOSE [id number] 21:09:00 Test Item Value Reference Range Interpretation Comments POC-GLUCOSE METER 125 mg/dL 70-110 H : TESTED A T [facility] 6720 (BEAKER) (test code = [facility], [facility]) 09669: Ingot Stripper/Techni jamey ID = [id number] for NEGAR KHALIL POCT-GLUCOSE [id number] 17:10:00 Test Item Value Reference Range Interpretation Comments POC-GLUCOSE METER 93 mg/dL 70-110 : TESTED A T [facility] 6720 (BEAKER) (test code = [facility], [facility]) 68664: Ingot Stripper/Techni jamey ID = [id number] for KIRSTIE ELIOT DERIK HEMOGLOBIN [id number] 12:38:00 Test Item Value Reference Range Interpretation Comments HEMOGLOBIN A1C (BEAKER) (test code = 5.6 % 4.3-6.1 368) POCT-GLUCOSE [id number] 11:50:00 Test Item Value Reference Range Interpretation Comments POC-GLUCOSE METER 97 mg/dL 70-110 : TESTED A T [facility] 6720 (BEAKER) (test code = [facility], [facility]) 68130: Ingot Stripper/Techni jamey ID = [id number] for [place] Light HEPATITIS B SURFACE [id number] 10:03:00 Test Item Value Reference Range Interpretation Comments HEPATITIS B SURFACE ANTIGEN (2) Nonreactive Nonreactive (BEAKER) (test code = 2585) Ingot Stripper ID - HANNAH CCBC W/PLT COUNT & AUTO [id number] 09:36:00 Test Item Value Reference Range Interpretation [...] 0-1 PERCENT (BEAKER) (test code = 2801) [id number] 09:33:00 Test Item Value Reference Range Interpretation Comments MAGNESIUM (BEAKER) (test code = 2.0 mg/dL 1.6-2.6 627) Ingot Stripper ID - HANNAH CPOCT-GLUCOSE [id number] 07:55:00 Test Item Value Reference Range Interpretation Comments POC-GLUCOSE METER 65 mg/dL 70-110 L : [facility] (BEAKER) (test code = [place], 1538) [address]34: Ingot Stripper/Techni jamey ID = [id number] for DERIK PEDRO [id number] 05:36:00 Test Item Value Reference Range Interpretation Comments FERRITIN (BEAKER) (test code = 1973.82 ng/mL 5.00-275.00 H 361) Ingot Stripper ID - MINH MVITAMIN B12 AND [id number] 05:32:00 Test Item Value Reference Range Interpretation Comments VITAMIN B12 (BEAKER) (test code = 1334 pg/mL 213-816 H 774) FOLATE (BEAKER) (test code = 362) 6.40 ng/mL >=7.00 L Ingot Stripper ID - MINH MRAD, HIP, 2 VIEWS, [id number] 05:18:00Reason for exam:->fractureFINAL REPORT CLINICAL HISTORY: "Fracture" [...] 13 % 20-55 L (test code = 9000) Ingot Stripper VIELKA WILKINSON MBASIC METABOLIC [id number] 02:38:00 Test Item Value Reference Range Interpretation [...] S NOT APPLICABLE FOR DIALYSIS PATIEN TS. Ingot Stripper ID - MINH MPROTHROMBIN [id number] 02:36:00 Test Item Value Reference Range Interpretation [...] for patients wiht mechanical heart valves.HEPATIC FUNCTION [id number] 02:32:00 Test Item Value Reference Range Interpretation [...] (test code = 6 U/L 6-55 347) Ingot Stripper ID - MINH MCBC W/PLT COUNT & AUTO [id number] 02:20:00 Test Item Value Reference Range Interpretation [...] (BEAKER) (test code = 2801) COMPREHENSIVE METABOLIC [id number] 23:10:00 Test Item Value Reference Range Interpretation [...] S NOT APPLICABLE FOR DIALYSIS PATIEN TS. Ingot Stripper ID - BSPROTHROMBIN [id number] 23:07:00 Test Item Value Reference Range Interpretation [...] mechanical heart valves.CBC W/PLT COUNT & AUTO [id number] 22:49:00 Test Item Value Reference Range Interpretation [...] PERCENT (BEAKER) (test code = 2801) POCT-GLUCOSE [id number] 20:35:00 Test Item Value Reference Range Interpretation Comments POC-GLUCOSE METER 102 mg/dL 70-110 : TESTED A T [facility] 6720 (BEAKER) (test code = [place], 1538) 23336: Ingot Stripper/Techni jamey ID = [id number] for [facility]
== END 2021-05-02 04:52 | disposition expired ==
LOC: ER 00:07
DX: I46.9 Cardiac arrest, cause unspecified (principal); Z88.6 Allergy status to analgesic agent; Z88.8 Allergy status to other drugs, medicaments and biological substances
CPT/HCPCS: 96375; 96374; 92950; 99285; J2310